=== PATIENT | female | born 1945 | race Caucasian/White ===

== ENCOUNTER → 2017-09-12 09:18 | Outpatient (CLI) | payer MEDICARE, SELFPAY | PROVIDERS: Family Provider Internal Medicine; PCP Internal Medicine | DX: R00.2 Palpitations (principal); R53.83 Other fatigue | CPT/HCPCS: 93225; 93226 ==

== ENCOUNTER → 2018-02-16 09:16 | Outpatient (CLI) | payer MEDICARE, SELFPAY ==
--- NOTE | 2018-02-16 | IMM_PTH ---
PATIENT: EDER LISA LOC: [facility] U#:[id number] AGE/SX: 79/F ROOM: RE02/16/[address]: Dr. Jairo Douglas MD : 1945 BED: DIS: SPEC #: [id number] RECD: 02/17/18 13:40 STATUS: STEFAN REQ #: [id number] YUDI: 02/16/18 00:[address]: Jairo Douglas DEPT: IMMUNOHISTOCHEMISTRY RECD BY: Stormy Gold ENTERED: 02/17/18 13:41 SP TYPE: IMMUNO OTHR DR: Dr. Becka Dewey MD Tissues: Left breast, NOS Procedures: CALPONIN-1 (add) CK5-6 (add) CK8 (add) E-CAD (add) HER2 BASSAM (add) KI-67 (add) P53 (add) NV (add) P40 (add) ER (initial) PHYSICIAN & [address] [address] SPECIMEN INFORMATION: Tissue Source: Left breast Clinical Info: Left breast microcalcifications 12 o'clock middle depth Specimen Number: [id number] #1 CPT code: 30713, 68438 x6, 79498 x3 METHODOLOGY: Deparaffinized sections of prefer/formalin-fixed tissue or PAP/DQ stained slides are incubated with monoclonal/polyclonal antibodies/oligonucleotide probes. Localization is made via biotin free immunoperoxidase method. Appropriate controls are performed and reacted as expected. Results on target cell population are indicated in the following table: RESULTS: ANTIBODY / CLONE RESULT Block 1 P53 (DO-7) positive, rare Ki-67 (30-9) negative CK8 (09fftpA16) positive CK5-6 (D5 & 1684) negative Calponin-1 (NI761A) positive P40 (BC28) positive E-Cad (ECH-6) positive MORPHOMETRIC ANALYSIS ER (clone 6F11) >95%, strong NV (clone 16/1E2) >95%, moderate Her-2Neu (clone CB11) 3+ The prognostic test for HER2 is performed on formalin-fixed paraffin embedded tissue. A 3+ (positive) staining pattern is defined as intense, homogeneous, complete, circumferential membranous staining in >10% of contiguous tumor cells. A similar weak (2+) staining pattern is interpreted as equivocal. MANUELA follow-up testing is recommended for all equivocal cases. Positivity/negativity for ER/NV is reported if > or < 1% of the tumor cells are immuno- reactive, respectively. The ASCO/CAP criteria is used for scoring. Reference: Journal of Clinical Oncology, 2013; 31:0393-9072 & 2010; 16:9216-2719. Duration of fixation: 9 Hrs; Sample Adequate: Yes. These assays have not been validated on decalcified tissues. Results should be interpreted with caution given the likelihood of false negativity on decalcified specimens. These tests were developed and their performance characteristics determined by [facility]. They may not have been cleared or approved by the U.S. Food and Drug Administration. The FDA has determined that such clearance or approval is not necessary. INTERPRETATION: Left breast, microcalcifications 12 o'clock middle depth, stereotactic core biopsy: Ductal carcinoma in situ, grade 3/3. Positive for estrogen receptors (favorable prognostic indicator). Positive for progesterone receptors (favorable prognostic indicator). Positive for overexpression of HQS1wok. AM:alessandra 02/18/18
--- NOTE | 2018-02-16 10:35 | BRBX_PTH ---
PATIENT: EDER LISA LOC: [facility] U#:[id number] AGE/SX: 79/F ROOM: RE02/16/[address]: Dr. Jairo Douglas MD : 1945 BED: DIS: SPEC #: [id number] RECD: 02/16/18 12:08 STATUS: STEFAN PARDEEP #: [id number] YUDI: 02/16/18 10:[address]: Jairo Douglas DEPT: SURGICAL PATHOLOGY RECD BY: Jairo Booker ENTERED: 02/16/18 12:59 SP TYPE: BREAST BX OTHR DR: Dr. 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 AM:alessandra 02/17/18 COMMENT ER/AR/Fqt1dqj studies are being performed on sections of tumor and the results from this study will be reported separately ([id number]). Case has been reviewed in consultation with Dr. Corado who concurs with the above diagnosis. IDC:SJ MICROSCOPIC DESCRIPTION Slides are reviewed. GROSS DESCRIPTION Received is one container labeled with the patient's name and not further designated. The specimen consists of multiple elongated fragments of king-yellow fibroadipose tissue that in aggregate measure 5 x 3 x 0.6 cm. The entire specimen is submitted in four cassettes. / VINNIE:alessandra 02/16/18 TC:0 CPT: 72217
--- NOTE | 2018-02-16 11:39 | PCM.OPRPT ---
Report of Operation Date of Procedure: 02/16/18 Pre-Operative Diagnosis: right breast microcalcifications Post-Operative Diagnosis: right breast microcalcifications -successful biopsy Surgery/Procedure Performed:: right stereotactic vaccuum assisted core biospy, specimen radiograph, marker placement brazing machine operator automatic: None Type of Anesthesia:: Local Specimen's removed: right breast Description of Procedure: The patient was brought to the stereotactic suite and informed of the plan course of events. The right breast was positioned in the CC approach on the [place] stereotactic table. Mammographic image demonstrated the area of abnormality to be located in the center of the radiograph. Stereotactic images were then obtained which demonstrated good positioning of the abnormality for biopsy with good stroke gaston parameters. The breast was cleaned with Betadine area did one percent lidocaine was used to anesthetize the skin and a small stab incision made. An 8-gauge mammotome needle was placed into the pre-fire position. Stereotactic images demonstrated good positioning around the planned biopsy site. Local anesthetic injected deeply in the breast. The needle was deployed. Post deployment images demonstrated good positioning of the planned biopsy site. Multiple vacuum-assisted samples were obtained and cbkrxg-gee-[id number] fashion. Specimen radiograph demonstrated micro-calcifications in the sample. A gel marker clip was deployed. Post biopsy images demonstrated good position of the clip relative the biopsy cavity. The breast was removed from compression. Steri-Strips and a dressing applied. Post procedure mammogram images were obtained.
== END ==
PROVIDERS: Family Provider Internal Medicine; PCP Internal Medicine; Visit Provider Surgery
DX: D05.12 Intraductal carcinoma in situ of left breast (principal)
CPT/HCPCS: 19081; 88305; 88341; 88342; J7050; A4648

== ENCOUNTER 2018-03-12 07:25 | Day surgery (SDC) | payer MEDICARE, SELFPAY ==
--- NOTE | 2018-03-12 | BREAST_PTH ---
PATIENT: EDER ILSA LOC: [facility] U#:[id number] AGE/SX: 72/F ROOM: RE03/12/[address]: Dr. Jairo Douglas MD : 1945 BED: DIS: 03/12/2018 SPEC #: [id number] RECD: 03/12/18 10:20 STATUS: STEFAN REStephen #: [id number] YUDI: 03/12/18 00:[address]: Jairo Douglas DEPT: SURGICAL PATHOLOGY RECD BY: Stormy Gold ENTERED: 03/12/18 10:48 SP TYPE: BREAST OTHR DR: Dr. Becka Dewey MD Tissues: Left breast, NOS Procedures: Surgery Specimen Level V HEADER OPERATION: Left breast lumpectomy PRE-OP DIAGNOSIS: Left breast ductal carcinoma in situ TISSUE SUBMITTED: Left breast lumpectomy - sent to radiology, then to lab at 10:11, wire - cranial, single tail - medial, double tail - deep MICROSCOPIC DIAGNOSIS Left breast, lumpectomy: Ductal carcinoma in situ. See cancer checklist below. AM:alessandra 03/18/18 COMMENT DUCTAL CARCINOMA IN SITU SUMMARY: Specimen - partial breast Procedure - excision with wire-guidance Lymph node sampling - no lymph nodes present Specimen integrity - single intact specimen Specimen size - 6 x 6 x 3.5 cm Specimen laterality - left Size (extent) of DCIS - 2 x 1 x 1 mm Histologic type - ductal carcinoma in situ Architectural patterns - papillary and cribriform types with focal central necrosis. Nuclear grade - Grade 3/3 Necrosis - focally present, central Margins - uninvolved by DCIS. Distance from closest (anterior) margin - 5 mm Lymph nodes - not present Other findings - biopsy cavity with associated reactive change. Fibrocystic change and focal adenosis. Microcalcifications - present in non-neoplastic tissue. Ancillary Studies from previous specimen ([id number] / [id number]): ER - >95%, strong CT - >95%, moderate Her2 gunnar ([facility]) - 3+ Her2 by FISH - not performed. Pathologic Staging: pTis(DCIS) Nx Mx The above summary is in compliance with [employer] [place] [employer] (CAP) Cancer Protocols Checklist and [place] [employer] Committee on Cancer (AJCC), Staging Manual, 8th Ed. Reference is made to the patient's previous left breast stereotactic core biopsy from 02/17/18 ([id number]) in which ductal carcinoma in situ, nuclear 3 was identified. Case has been reviewed in consultation with Dr. Quick who concurs with the above diagnosis. IDC:CE MICROSCOPIC DESCRIPTION Slides are reviewed. GROSS DESCRIPTION Received fresh for intraoperative consultation labeled with the patient's name is a specimen designated left breast lumpectomy. The specimen consists of a piece of fibroadipose tissue with needle localization measuring 6 x 6 x 3.5 cm. A piece of skin is noted superiorly measuring 3.5 x 1 cm. The specimen is oriented as follows: wire - cranial, single tail - medial, and double tail - deep/inferior. The specimen is inked as follows: anterior - yellow, posterior - black, superior - blue, inferior - green, medial - red and lateral - orange. Serial sections reveal a biopsy cavity measuring 1.5 x 1.5 x 1 cm. This biopsy cavity is 1 cm away from the closest posterior margin. The specimen gross is reviewed along with the surgeon in person. No skin lesion is identified. Sections of the rest of the specimen reveal king-yellow adipose cut surfaces mixed with king-white fibrous area. System Engineer sections are submitted in 12 cassettes as follows: 1 & 2 - perpendicular margins, 3-7 - biopsy cavity with surrounding tissue, 8-12 - guest services representative sections adjacent to and away from the tumor. / VINNIE:alessandra 03/13/18 TC:0 CPT: 52630, 98252
--- NOTE | 2018-03-12 | IMM_PTH ---
PATIENT: EDER LISA LOC: [facility] [place] U#:[id number] AGE/SX: 72/F ROOM: RE03/12/[address]: Dr. Jairo Douglas MD : 1945 BED: DIS: 03/12/2018 SPEC #: [id number] RECD: 03/17/18 13:05 STATUS: SOUAsif REQ #: [id number] YUDI: 03/12/18 00:[address]: Jairo Douglas DEPT: IMMUNOHISTOCHEMISTRY RECD BY: Stormy Gold ENTERED: 03/17/18 13:07 SP TYPE: IMMUNO OTHR DR: Dr. Becka Dewey MD Tissues: Left breast, NOS Procedures: Calponin-1(initial) P40 (add) PHYSICIAN & INSTITUTION [place] [id number] SPECIMEN INFORMATION: Tissue Source: Left breast lumpectomy Clinical Info: Left breast DCIS Specimen Number: [id number] CPT code: 41072, 68431 METHODOLOGY: Deparaffinized sections of prefer/formalin-fixed tissue or PAP/DQ stained slides are incubated with monoclonal/polyclonal antibodies/oligonucleotide probes. Localization is made via biotin free immunoperoxidase method. Appropriate controls are performed and reacted as expected. Results on target cell population are indicated in the following table: RESULTS: ANTIBODY / CLONE RESULT Block 10 P40 (BC28) positive Calponin-1 (CQ551B) positive These tests were developed and their performance characteristics determined by [facility]. They may not have been cleared or approved by the U.S. Food and Drug Administration. The FDA has determined that such clearance or approval is not necessary. INTERPRETATION: Left breast lumpectomy: Consistent with focus of adenosis. AM:alessandra 03/18/18
--- NOTE | 2018-03-12 07:20 | BI_ITS ---
SURGICAL BREAST SPECIMEN RADIOGRAPH CLINICAL: Document presence of tissue clip marker in biopsy specimen. FINDINGS: Specimen shows presence of tissue clip marker. Electronically Signed: Wilfrid Bartlett MD at 11:01 EST Tel [phone], Service support , BI/Breast Biopsy Specimen
[2018-03-12 07:49] VITALS: BP 174/74; PULSE 65; RESP 16; TEMP 37.1; O2SAT 97; BMI 26.6
[2018-03-12] MEDS: Bupivacaine 0.25% 30 ML Vial (10:30)
--- NOTE | 2018-03-12 10:36 | OP.PCM_ITS ---
Report of Operation Date of Procedure: 03/12/18 Pre-Operative Diagnosis: left breast DCIS Post-Operative Diagnosis: left breast DCIS - good radiographic and gross margins Surgery/Procedure Performed:: left needle localization lumpectomy starch treating assistant: Radha Nunez Type of Anesthesia:: Local MAC Anesthesiologist: Alberto Garcia - ASA3 Specimen's removed: left breast tissue Estimated Blood Loss (mL): 5 Fluids Replaced: 700 Description of Procedure: The patient was brought to the stereotactic suite. Her left breast was positioned in the cc approach in the [place] stereotactic table. Mammogram image demonstrated the clip to be nicely centered. Stereotactic images were obtained. Planned placement of the wire was marked and an additional 15 mm of depth added to the prescribed depth. The breast was then cleaned with Betadine. Local anesthetic was injected in the breast and a 15 Kopan's wire was inserted to the prescribed depth. Stereotactic images demonstrated good positioning of the wire. The wire was deployed as an needle was withdrawn. Stereotactic images demonstrated good positioning of the wire. The breast was marked compression the wire cut to length and taped. CC and true lateral views were then obtained. The patient was then brought to the operative suite. Sign was performed verifying patient, site, position, and DVT prophylaxis with SCDs. no antibiotics were given due to the patient's history of many drug allergies and anxiety related to possible drug allergies. The procedure was done under local anesthetic with conscious sedation. Following this, the patient?s left breast, was then prepped and draped in the usual fashion. Timeout was performed verifying patient, site, position. The wire entered the left breast at the 12 oclock position. 50-50 mixture of1% lidocaine and 0.25% Marcaine was injected into the skin and then injected deeply throughout the case. A total of 24 cc of local anesthetic mixture was injected. An elliptical incision was made and dissection carried down to subcutaneous breast tissue and then flared out such that a good margin would be obtained in all axes. When the specimen was removed. The wire came from the superior superficial site. A solitary suture was placed at the medial aspect A double tail suture was placed along the inferior to deep aspect of the specimen. The specimen was oriented on a radiographic plate and sent for specimen radiograph. While we?re awaiting specimen radiograph, the cavity was irrigated with sterile water and aspirated. There was noted to be good hemostasis. 4 medium clips were placed at the deep cavity margins and 4 small clips at the superficial cavity margins oriented the cavity for future radiation treatment. Subcutaneous breast tissue closed with interrupted 3-0 Vicryl suture. Skin was closed with a running 4-0 Biosyn subcuticular suture. Specimen radiograph demonstrated good position of the clip relative to the biopsy site. The specimen was then brought to the pathology department. I oriented the specimen with the pathologist. Gross margins were examined and felt to be at least 1 cm. Given this, Dermabond was applied to the skin the patient was awakened and brought to recovery in stable condition. - Admit VTE Documentation VTE Present on Admission: No VTE Mechan Device Prophylaxis: SCD's
--- NOTE | 2018-03-12 10:38 | DCINST_ITS ---
Discharge Diet: No Restrictions Discharge Activity: Return to Normal Activity May shower in (days): 3 Call your doctor if your incision/area has: Continuous Slow Oozing, Sudden Increased Bleeding, Increased Pain/ Swelling, Increased Redness, Foul Smelling Discharge, Swelling at the incision site Call your doctor if you observe: Fever of 101 or Higher Allergies/Adverse Reactions: Allergies aspirin Allergy (Mild, Verified 03/09/18 11:24) unknown calcium carbonate [From Tums] Allergy (Mild, Verified 03/09/18 11:24) unknown estradiol [From Vagifem] Allergy (Mild, Verified 03/09/18 11:24) unknown latanoprost [From Xalatan] Allergy (Mild, Verified 03/09/18 11:24) unknown miconazole [From Monistat 3] Allergy (Mild, Verified 03/09/18 11:24) burining, headache, nausea ranitidine [From Zantac] Allergy (Mild, Verified 03/09/18 11:24) unknown skin cleanser combination no.17 [From Monistat 3] Allergy (Mild, Verified 03/09/18 11:24) burining, headache, nausea tioconazole [From Monistat 1 (tioconazole)] Allergy (Mild, Verified 03/09/18 11:24) burning, headache, nausea amoxicillin Allergy (Verified 03/09/18 11:24) Anaphylaxis ibuprofen [From Advil] Allergy (Verified 03/09/18 11:24) Other indomethacin [From Indocin] Allergy (Verified 03/09/18 11:24) Anaphylaxis indomethacin sodium [From Indocin] Allergy (Verified 03/09/18 11:24) Anaphylaxis prednisolone Allergy (Verified 03/09/18 11:24) Swelling Sulfa (Sulfonamide Antibiotics) Allergy (Verified 03/09/18 11:24) Anaphylaxis nitrofurantoin macrocrystalline [From Macrodantin] Adverse Reaction (Verified 03/09/18 11:24) Other prednisone Adverse Reaction (Verified 03/09/18 11:24) Other progesterone Adverse Reaction (Verified 03/09/18 11:24) Other propoxyphene HCl [From Darvon] Adverse Reaction (Verified 03/09/18 11:24) Other BARIUM DRINK Adverse Reaction (Uncoded 03/09/18 11:24) Rash MONOSTAT Adverse Reaction (Uncoded 03/09/18 11:24) Other PSORIASIS LOTION Adverse Reaction (Uncoded 03/09/18 11:24) Rash Medications to take at Discharge L.acidoph/B.long/L.plant/B.lac [Probiotic Acidophilus Beads] 1 ea PO DAILY 04/26/14 Lutein 1 cap PO DAILY 04/26/14 Nattokinase 100 mg PO DAILY 04/26/14 Albuterol IH (ProAir) [Proair Hfa] 2 puff INHALATION Q4H PRN PRN 07/18/14 DiphenhydrAMINE [Benadryl] 25 mg PO BID PRN PRN 07/18/14 Epinephrine [Epi Pen] 0.3 mg IH X1 PRN 07/18/14 Cholecalciferol (Vitamin D3) [Vitamin D3] 5,000 unit PO DAILY 03/10/16 biotin 1 mg capsule 2,500 mcg PO QDAY 10/17/17 Magnesium Amino Acid Chelate [Magnesium] 100 mg PO DAILY 03/09/18 Primary Care Physician: Becka Dewey MD [Primary Care Provider] - Test Results: Test results from this visit will be discussed in further detail at your follow- up appointment, if applicable. Please Follow Up With: Jairo Douglas MD - [phone] When: Please call for an appointment to be seen in one week.
[2018-03-12 10:40] VITALS: BP 124/77; BP 174/77; PULSE 74; RESP 16; TEMP 36.1; O2SAT 96
[2018-03-12 10:45] VITALS: BP 152/75; BP 174/77; PULSE 71; RESP 16; O2SAT 98
[2018-03-12 10:50] VITALS: BP 151/73; BP 174/77; PULSE 84; RESP 16; O2SAT 99
[2018-03-12 10:58] VITALS: BP 157/76; BP 174/77; PULSE 74; RESP 16; TEMP 36.4; O2SAT 99
[2018-03-12 11:32] VITALS: BP 140/78; BP 174/77; PULSE 68; RESP 18; TEMP 36.8; O2SAT 99
== END 2018-03-12 11:33 | disposition home or self-care (01) ==
LOC: SDC 07:25 → AC 07:28
PROVIDERS: Family Provider Internal Medicine; PCP Internal Medicine; Referring Provider Surgery; Visit Provider Surgery
PROC: (CPT 19301; principal; 2018-03-12 09:00)
DX: D05.12 Intraductal carcinoma in situ of left breast (principal); L40.9 Psoriasis, unspecified; M19.90 Unspecified osteoarthritis, unspecified site; J45.909 Unspecified asthma, uncomplicated; K21.9 Gastro-esophageal reflux disease without esophagitis; Z78.0 Asymptomatic menopausal state; Z87.11 Personal history of peptic ulcer disease
CPT/HCPCS: 19301; 19281; 76098; 88305; 88307; 88341; 88342; J7120; J3490; Q9968

== ENCOUNTER 2018-05-29 04:04 | Emergency (ER) | payer MEDICARE, SELFPAY ==
[2018-05-29 04:05] VITALS: BP 171/71; PULSE 68; RESP 18; TEMP 36.6; O2SAT 98; BMI 26.7
--- NOTE | 2018-05-29 04:26 | EKG12_ITS ---
Test Reason : SOB Blood Pressure : / mmHG Vent. Rate : 061 BPM Atrial Rate : 061 BPM P-R Int : 154 ms QRS Dur : 144 ms QT Int : 462 ms P-R-T Axes : 024 047 013 degrees QTc Int : 465 ms Normal sinus rhythm Right bundle branch block Abnormal ECG Confirmed by JOLENE DE LA ROSA, BRETT ([id number]), news videotape editor LISANDRA CARVALHO ([id number]) on 06/01/2018 1:00:04 PM Referred By: ALEXANDREA Confirmed By:BRETT FERNÁNDEZ MD
--- NOTE | 2018-05-29 04:26 | RAD_ITS ---
STUDY: X-RAY CHEST REASON FOR EXAM: Female, 73 years old. Chest pressure. Jaw pain TECHNIQUE: 2 views COMPARISON: None. FINDINGS: The lungs are clear and expanded. There is no demonstrated pleural abnormality. Normal size heart. Normal mediastinum and louisa. Normal visualized pulmonary arteries. Normal visualized aortic arch and descending thoracic aorta. Degenerative changes of the thoracic spine Normal visualized ribs, clavicles, and shoulders. There is no demonstrated abnormality of the visualized soft tissue structures of the upper abdomen. RAD/Chest PA and Lateral IMPRESSION: No acute findings in the lungs. No cardiomegaly Electronically Signed: Alfonso Bowie MD at 5:30 EDT Tel , Service support ,
[2018-05-29 04:44] LABS: Absolute Lymphocyte Count 1.37 X10^3/ul (0.83-4.51); Absolute Neutrophil Count 2.8 X10^3/uL (2.0-7.7); Basophil# 0.04 X10^3/uL; Basophil% 0.8 % (0-1); Eosinophil# 0.15 X10^3/uL; Eosinophils% 3.1 % (0-5); Hemoglobin 13.5 g/dl (12.0-15.0); Lymphocyte # 1.37 X10^3/ul (4.0); Lymphocyte % 28.6 % (19-41); Mean Corp Hgb Conc 33.8 g/gl (32-36); Mean Corpuscular Hgb 29.2 pg (27.0-32.0); Mean Corpuscular Volume 86.6 fL (81-99); Mean Platelet Vol. 9.2 fl (6.2-12.0); Monocyte# 0.42 X10^3/uL; Monocyte% 8.8 % (0-10); Neutrophil # 2.81 X10^3/uL (2.7-7.7); Neutrophil % 58.7 % (47-70); POSITIVE COUNT NO; POSITIVE DIFFERENTIAL NO; POSITIVE MORPHOLOGY NO; Platelet Count 201 K/mm3 (150-450); RBC Distribution Width CV 13.9 % (11.6-14.6); RBC Distribution Width SD 43.8 fl (35.1-43.9); Red Blood Count 4.62 M/mm3 (4.2-5.4); White Blood Count 4.8 K/mm3 (4.4-11.0)
[2018-05-29 05:00] LABS: Anion Gap 6 (5-15); BUN 13 mg/dL (7-18); BUN/Creat Ratio 16.9 RATIO (10-20); Chloride 105 mmol/L (98-107); Creatinine, Serum 0.77 mg/dL (0.55-1.02); EST Glomerular Filtration Rate 78 mL/min (>60); Est Glom Filt Rate - Afr Amer 95 mL/min (>60); Glucose 105 mg/dL (74-106); Potassium 3.9 mmol/L (3.5-5.1); Sodium Level 140 mmol/L (136-145)
[2018-05-29 06:04] VITALS: BP 205/81; PULSE 65; RESP 16; O2SAT 99
--- NOTE | 2018-05-29 06:21 | CT_ITS ---
HISTORY: SHORTNESS OF BREATH. CURRENTLY ON RADIATION FOR BREAST CANCER. LEFT LUMPECTOMY TECHNIQUE: Helically acquired images were obtained of the chest following IV contrast as per pulmonary angiogram protocol with 3D reconstructions. A radiation dose optimization technique was used for this scan. IV Contrast dosage and agent: 75 cc Isovue-370 contrast COMPARISON: 2 view chest x-ray 05/29/2018 FINDINGS: The main, segmental, and visualized subsegmental pulmonary arteries show normal opacification and appearance. No PE. The ascending thoracic aorta is upper normal in caliber. No aortic dissection or pericardial effusion. No mediastinal or axillary lymph node enlargement. On axial images #70-71, the lateral segment of the right middle lobe shows a 6 x 3 mm noncalcified nodule. No acute infiltrate. No pleural effusion or significant pleural disease. Left breast postlumpectomy changes with surgical clips in place. No acute osseous abnormality or suspicious bony lesion. CT/CTA Chest W/WO Contrast IMPRESSION: 1. No PE, pneumonia, or acute chest disease identified. 2. Right middle lobe 6 mm pleural-based nodule which is too small to assess by PET/CT. Recommend follow-up CT chest in 6 months to assure stability. 3. Left breast postlumpectomy changes. No lymphadenopathy seen. Individualized dose optimization techniques were used for this CT. at 4315 Reported and signed by: Garret Sevilla MD Electronically Signed: Garret Sevilla, at 7:28 EDT Tel , Service support ,
[2018-05-29] MEDS: DiphenhydrAMINE 50 MG/ML Syringe 12.5 MG IV (06:28)
--- NOTE | 2018-05-29 06:46 | ED.VISSUMM ---
- ER Visit Summary Date of Service: 05/29/18 Chief Complaint: Shortness of breath History of Present Illness: The patient is a 73 F who presents with shortness of breath. This is been present for 3 days. It is intermittent. Currently she actually does not feel short of breath. She denies any chest pain. No fevers nausea vomiting. She is undergoing radiation treatment for left breast cancer. She also has a history of hemochromatosis. She has to undergo phlebotomy. Physical Examination: Afebrile blood pressure 171/71 vitals otherwise normal Moist mucous membranes Heart regular rate and rhythm Lungs are clear Abdomen soft Extremities nontender Alert Skin warm and dry Test Results: EKG shows sinus rhythm rate of 61 with a right branch block. CBC BMP unremarkable. Troponin negative. Chest x-ray shows cardiomegaly but no acute findings. CTA of the chest shows no evidence of pulmonary embolism pneumonia or acute chest disease. Emergency Department Course and Treatment: Patient's complaints of intermittent dyspnea with active cancer raises concern for possible pulmonary embolism. Patient's workup as above is unremarkable. She was actually asymptomatic while here. I do not see an indication for hospitalization at this point. She does not appear to have any acute life-threatening cause of her unexplained intermittent dyspnea. She was advised to follow-up with her physicians. She understands to return for new or worsening symptoms. She was discharged. Treatment Plan: [] Disposition: Discharge Impression: Dyspnea This note was generated with Web[employer] dictation software. It may contain incorrect words, spelling, and punctuation that were not noted in review of the chart prior to signing ED Disposition - Plan for ED Patient: Referrals: Becka Dewey MD [Primary Care Provider] -
--- NOTE | 2018-05-29 07:39 | ED.DEP ---
ED Disposition - Plan for ED Patient: Instructions: ED Dyspnea Shortness of Breath Referrals: Becka Dewey MD [Primary Care Provider] -
[2018-05-29 08:18] VITALS: BP 168/84; PULSE 87; RESP 16; O2SAT 98
== END 2018-05-29 08:19 | disposition home or self-care (01) ==
LOC: ED 04:40
PROVIDERS: Emergency Provider Emergency Medicine; Family Provider Internal Medicine; PCP Internal Medicine
DX: R06.00 Dyspnea, unspecified (principal); C50.912 Malignant neoplasm of unspecified site of left female breast; I45.10 Unspecified right bundle-branch block; I51.7 Cardiomegaly; Z79.899 Other long term (current) drug therapy; Z86.2 Personal history of diseases of the blood and blood-forming organs and certain disorders involving the immune mechanism
CPT/HCPCS: 71046; 71275; 80048; 84484; 85025; 93005; 96374; 99284; Q9967; A4216

== ENCOUNTER 2018-10-16 11:24 | Emergency (ER) | payer MEDICARE, SELFPAY ==
[2018-10-16 11:25] VITALS: BP 197/79; PULSE 75; RESP 18; TEMP 36.6; O2SAT 99; BMI 27.5
--- NOTE | 2018-10-16 11:44 | CT_ITS ---
STUDY: CT CERVICAL SPINE WITHOUT CONTRAST REASON FOR EXAM: Female, 73 years old. Fall, on blood thinners. RADIATION DOSAGE (If Supplied By Facility): CTDIvol = ( 20.17 ) mGy, DLP = ( 473.93 ) mGycm TECHNIQUE: Thin slice helical CT acquisition of the cervical spine without contrast. Coronal and sagittal 2-D multiplanar reformatted images were saved to the PACS archive. Individualized dose optimization techniques were used for this CT. COMPARISON: None FINDINGS: No acute cervical or supraclavicular soft tissue process. Apical lungs clear. Apical thoracic cage within the [id number] intact. Odontoid, lateral masses, ring of C1 intact. Facet joints aligned and intact with mild facet arthropathy at multiple levels. Posterior elements acutely intact. Cervical vertebral body height and alignment are normal with preserved lordosis. C4-C5 moderate disc narrowing, mild disc bulging, uncovertebral joint hypertrophy contributing to mild right foraminal narrowing. C5-C6 moderate disc narrowing, uncovertebral joint hypertrophy. Partial calcification of the posterior longitudinal ligament, features contributing to mild bilateral foraminal narrowing. C6-C7 moderate disc narrowing, mild uncovertebral joint hypertrophy and disc bulging with no significant stenosis. The remaining disc intervals are normal. CT/Spine Cervical without Contras IMPRESSION: No acute cervical spine fracture or traumatic subluxation. Electronically Signed: Jairo Love MD at 12:57 EDT Tel , Service support ,
--- NOTE | 2018-10-16 11:44 | CT_ITS ---
STUDY: CT BRAIN WITHOUT CONTRAST REASON FOR EXAM: Female, 73 years old. Fall, on blood thinners RADIATION DOSAGE (If Supplied By Facility): CTDIvol = ( 44.99 ) mGy, DLP = ( 812.98 ) mGycm TECHNIQUE: Transaxial CT imaging of the brain was performed without administration of intravenous contrast material. Sagittal and coronal 2-D MPR. Individualized dose optimization techniques were used for this CT. COMPARISON: MRI brain 03/10/2016, CT head 03/09/2016 FINDINGS: Small mucous retention cyst at the base of the left maxillary sinus. Paranasal sinuses otherwise clear. Mastoid air cells and middle ear cavities clear. Irregularity of the nasal bone, consistent with fracture of unknown chronicity. Criteria facial osseous structures otherwise intact. Small right supraorbital forehead contusion. No acute intracranial bleed. Mild features of age-related cerebral atrophy. CT/Brain/Head without Contrast IMPRESSION: Right supraorbital forehead soft tissue contusion. Irregularity of the nasal bone consistent with fracture of unknown chronicity. No acute cranial process. Electronically Signed: Jairo Love MD at 12:53 EDT Tel , Service support ,
--- NOTE | 2018-10-16 11:44 | CT_ITS ---
STUDY: CT FACIAL BONES WITHOUT CONTRAST REASON FOR EXAM: Female, 73 years old. Fall, on blood thinners. RADIATION DOSAGE (If Supplied By Facility): CTDIvol = ( 29.38 ) mGy, DLP = ( 569.49 ) mGycm TECHNIQUE: The patient was scanned in a multi detector CT scanner. Sagittal and coronal images were reconstructed. Individualized dose optimization techniques were used for this CT. COMPARISON: CT head, CT cervical spine same date. CT head 03/09/2016 FINDINGS: Cervical soft tissues exhibit no acute process. Pharyngeal and laryngeal soft tissues unremarkable. Small mucous retention cyst at the base of the left maxillary sinus. Small right supraorbital forehead contusion with apparent laceration. Clinically correlate. Irregularity of the nasal bone and left paracentral soft tissue prominence of the nose, most consistent with acute fracture. Orbital rims, orbital burton, zygomatic arches, maxilla and mandible intact. Temporomandibular joints normally articulated. CT/Sinus/Facial Bone IMPRESSION: Visible fracture. Right supraorbital forehead soft tissue contusion. Electronically Signed: Jairo Love MD at 12:56 EDT Tel , Service support ,
--- NOTE | 2018-10-16 11:44 | RAD_ITS ---
STUDY: X-RAY - LEFT KNEE REASON FOR EXAM: Female, 73 years old. Fall, abrasions of the left knee TECHNIQUE: For view(s) of the knee. COMPARISON: None. FINDINGS: Osteopenia. No visible knee joint effusion. Periarticular soft tissues unremarkable. Patellofemoral articulation minimal patellar marginal osteophytic lipping. Medial compartment minimal joint margin osteophytic lipping. Lateral compartment no significant degenerative features. RAD/Knee 4 or More Views IMPRESSION: No radiographic evidence of acute injury. Mild DJD. Electronically Signed: Jairo Love MD at 13:12 EDT Tel , Service support ,
--- NOTE | 2018-10-16 13:39 | ED.DCSUM_ITS ---
- ER Visit Summary Date of Service: 10/16/18 Chief Complaint: [Fall with head injury] History of Present Illness: The patient is a 73 F [the emergency department after sustaining a fall while trying to cross street. Patient states she tripped on the sidewalk and did not have time to get her hands up which caused her to strike her head on the ground. No loss of consciousness. Patient sustained a laceration over her right forehead and eyebrow. Patient planes of some mild soreness in her neck. She denies any chest or back pain. Denies abdominal pain. She denies paresthesias in extremities. She is not up-to-date on tetanus.] Physical Examination: [HEENT-PERRLA, EOMI. Cranial nerves II through XII grossly intact. TMs clear. Mucous membranes moist. No adenopathy. Patient has a 4 cm laceration over the right eyebrow. Patient has soft tissue swelling over the nasal bone with superficial abrasions noted. Patient has superficial abrasions of the upper lip. No septal hematoma noted. Cardiovascular-regular rate and rhythm without murmur or ectopy Lungs-clear to auscultation, chest wall stable without crepitus or subcu emphysema Abdomen-normoactive bowel sounds, soft, nontender, no rebound or rigidity, no peritoneal signs. Extremities-intact ?4, normal range of motion, normal pulses. Left knee-patient has some superficial abrasions noted. She has some tenderness palpation over the patella. She has normal range of motion flexion extension. She is neuro vascular intact distally.] Test Results: [Scan of the brain without contrast showed nasal bone fracture and some soft tissue defect over the right eyebrow otherwise nothing acute. CT scan of the C-spine showed no fractures. CT scan of the facial bones showed nasal bone fractures but no other fractures. X-rays of the left knee show no fractures.] Emergency Department Course and Treatment: [Patient laceration repair-wound sterilely draped and prepped. Wound cleansed with Shur-Clens and irrigated with copious saline. Using 1% lidocaine a total of 5 cc used to anesthetize the area. Using 6-0 nylon a total of 9 single interrupted sutures placed with good wound edge approximation. Patient tired procedure well. Clean dressing applied.] Treatment Plan: [Follow-up with primary care physician in 7 days for suture removal. Patient also will be referred to ENT for the nasal bone fracture.] Disposition: [Home stable condition] Impression: [Mechanical fall Closed head injury Nasal bone fracture Forehead laceration 4 cm-simple repair] This note was generated with [employer] dictation software. It may contain incorrect words, spelling, and punctuation that were not noted in review of the chart prior to signing ED Disposition - Plan for ED Patient: Referrals: Becka Dewey MD [Primary Care Provider] -
--- NOTE | 2018-10-16 13:42 | ED.DEP ---
ED Disposition - Plan for ED Patient: Instructions: FALL, Mechanical, LACERATION, Face (Suture or Tape), FRACTURE, Nose (with X-Ray), Neck Sprain/Strain Referrals: Becka Dewey MD [Primary Care Provider] - 7 Days for suture removal
[2018-10-16 14:02] VITALS: RESP 18
[2018-10-16] MEDS: Diphth,Pertuss(Acell),Tet Vac 0.5 ML Vial IM (14:11)
[2018-10-16 14:31] VITALS: BP 180/92; PULSE 72; RESP 16; O2SAT 98
== END 2018-10-16 14:32 | disposition home or self-care (01) ==
LOC: ED 11:50
PROVIDERS: Emergency Provider Emergency Medicine; Family Provider Internal Medicine; PCP Internal Medicine
DX: S02.2XXA Fracture of nasal bones, initial encounter for closed fracture (principal); S16.1XXA Strain of muscle, fascia and tendon at neck level, initial encounter; S01.81XA Laceration without foreign body of other part of head, initial encounter; S01.111A Laceration without foreign body of right eyelid and periocular area, initial encounter; S00.511A Abrasion of lip, initial encounter; S80.212A Abrasion, left knee, initial encounter; W01.10XA Fall on same level from slipping, tripping and stumbling with subsequent striking against unspecified object, initial encounter; Y93.9 Activity, unspecified; Y92.480 Sidewalk as the place of occurrence of the external cause; Y99.9 Unspecified external cause status; Z79.899 Other long term (current) drug therapy; Z23 Encounter for immunization
CPT/HCPCS: 12013; 70450; 70486; 72125; 73564; 90471; 90715; 99284

== ENCOUNTER → 2019-12-02 07:59 | Outpatient (CLI) | payer MEDICARE, SELFPAY ==
[2019-11-25 13:05] VITALS: BMI 27.5
--- NOTE | 2019-12-02 08:00 | US_ITS ---
STUDY: ABDOMINAL ULTRASOUND - RIGHT UPPER QUADRANT REASON FOR VISIT: Female, 74 years old bloating and discomfort -- d/p nik 2018 -- concern for retained stone TECHNIQUE: Ultrasound evaluation of the right upper quadrant was performed with real-time and static max-scale imaging. TECHNICAL QUALITY: Adequate. COMPARISON: None. FINDINGS: Liver: The liver measures 14.4 cm. There is normal echogenicity of the liver. The bile ducts are within normal limits. There is hepatic color flow. The direction of portal flow is hepatopetal. There is no demonstrated mass lesion. Gallbladder: The patient is status post cholecystectomy. Common Bile Duct (C.B.D.): The common bile duct measures 3.2 mm. Pancreas: Normal size of the head, body and tail of the pancreas. There is increased echogenicity of the pancreas. There is no demonstrated pancreatic mass or cyst. Right Kidney: Normal size of the right kidney. The right kidney measures 10 cm x 5 cm x 5 cm. Normal renal cortex. The right cortex measures 1.8 cm. There is no demonstrated renal mass or cyst. There is no right hydronephrosis. US/Liver IMPRESSION: Status post cholecystectomy. No acute abnormality is seen. Electronically Signed: Wilfrid Bartlett, at 10:19 EDT , Service support ,
== END ==
PROVIDERS: PCP Internal Medicine; Referring Provider Internal Medicine; Visit Provider Internal Medicine
DX: R14.0 Abdominal distension (gaseous) (principal)
CPT/HCPCS: 76705

== ENCOUNTER → 2019-12-15 06:26 | Outpatient (CLI) | payer MEDICARE, SELFPAY ==
[2019-11-25 13:05] VITALS: BMI 27.5
--- NOTE | 2019-12-15 06:27 | MRI_ITS ---
STUDY: MR MRCP WITHOUT CONTRAST REASON FOR EXAM: Female, 74 years old. retained gallstone,rt sided abd pain, hx cholecystectomy 2018 TECHNIQUE: Standard MRCP technique was utilized. COMPARISON: None. FINDINGS: Gall Bladder: Gall bladder is surgically absent. Cystic duct: Normal with no demonstrated fixed filling defect. Intrahepatic ducts: Normal visualized intrahepatic ducts with no demonstrated fixed filling defect, dilation or stricture. Common hepatic duct: Normal with no demonstrated fixed filling defect, dilation or stricture. Common bile duct: Normal with no demonstrated fixed filling defect, dilation or stricture. Pancreatic duct: Normal with no demonstrated fixed filling defect, dilation or stricture. MRI/MRCP Abdomen without Contrast IMPRESSION: Normal MRCP in a patient who is status post cholecystectomy. Electronically Signed: Jairo Barakat MD at 11:26 EDT Tel , Service support ,
== END ==
PROVIDERS: PCP Internal Medicine; Referring Provider Internal Medicine; Visit Provider Internal Medicine
DX: K91.86 Retained cholelithiasis following cholecystectomy (principal)
CPT/HCPCS: 74181

== ENCOUNTER → 2020-04-27 11:43 | Outpatient (CLI) | payer MEDICARE, SELFPAY ==
[2020-04-27 10:10] VITALS: BMI 25.4
[2020-04-27 16:01] LABS: Cholesterol 197 mg/dL (200); High Density Lipoprotein 55 mg/dL; Triglycerides 146 mg/dL; Very Low Density Lipoprotein 29 mg/dL (5-40)
== END ==
PROVIDERS: PCP Internal Medicine; Referring Provider Internal Medicine; Visit Provider Internal Medicine
DX: R07.9 Chest pain, unspecified (principal)
CPT/HCPCS: 36415; 80061

== ENCOUNTER → 2020-05-05 09:55 | Outpatient (CLI) | payer MEDICARE, SELFPAY ==
[2020-04-27 10:10] VITALS: BMI 25.4
--- NOTE | 2020-05-05 11:31 | STRESSREP ---
Stress Test Report Date: 05-05-2020 Procedure: Exercise tolerance test Indications: Chest pain Consent: Per the patient Procedure: The patient exercised on a Tc protocol for 6 minutes completing stage II achieving a peak heart rate of 120 bpm (83% predicted maximal heart rate) with a peak blood pressure 156/80 mmHg and a peak MET capacity of approximately 7 MET's. The baseline ECG demonstrated normal sinus rhythm; right bundle branch block pattern. The peak exercise ECG demonstrated sinus rhythm with a right bundle branch block pattern with approximately 1 to 2 mm of horizontal/downsloping ST segment depression in leads II, III, and aVF with subsequent resolution towards baseline in recovery. There was a rare PAC during exercise and recovery. The functional capacity was considered good. The patient had no complaint of chest discomfort during exercise or recovery. The examination was discontinued secondary to fatigue. Impression: 1. Technically inadequate (percent predicted maximal heart rate less than 85%) exercise tolerance test 2. Peak exercise ECG with continued sinus rhythm with a right bundle branch block pattern with approximately 1 to 2 mm horizontal/downsloping ST segment depression in leads II, III, and aVF with subsequent resolution towards baseline in recovery 3. There was a rare PAC during exercise and recovery This note was generated with [employer] software. It may contain incorrect words, spelling, and punctuation that were not noted in checking the note before signing.
== END ==
PROVIDERS: PCP Internal Medicine; Referring Provider Internal Medicine; Visit Provider Internal Medicine
DX: R07.9 Chest pain, unspecified (principal)
CPT/HCPCS: 93017

== ENCOUNTER → 2020-12-05 09:26 | Outpatient (CLI) | payer MEDICARE, SELFPAY ==
[2020-12-05 12:51] LABS: Vitamin B12 401 pg/mL (211-911); Vitamin D,25 Hydroxy 93.6 ng/mL
[2020-12-05 13:33] LABS: Hemoglobin A1c 5.3 % (3.8-5.6)
== END ==
PROVIDERS: PCP Internal Medicine; Referring Provider Internal Medicine; Visit Provider Internal Medicine
DX: E83.119 Hemochromatosis, unspecified (principal); G62.9 Polyneuropathy, unspecified; E55.9 Vitamin D deficiency, unspecified; M85.80 Other specified disorders of bone density and structure, unspecified site; Z78.9 Other specified health status
CPT/HCPCS: 36415; 82306; 82607; 83036

== ENCOUNTER 2021-03-23 15:27 | Outpatient (CLI) | payer MEDICARE, SELFPAY | END 2021-03-23 23:59 | disposition short-term general hospital (02) | LOC: LABSPEC 15:28 | PROVIDERS: PCP Internal Medicine; Referring Provider Internal Medicine; Visit Provider Internal Medicine | DX: U07.1 COVID-19 (principal) | CPT/HCPCS: 87635; U0003; U0005 ==

== ENCOUNTER 2021-05-28 10:33 | Outpatient (CLI) | payer MEDICARE, SELFPAY ==
[2021-05-28 12:09] LABS: Absolute Lymphocyte Count 1.18 X10^3/uL (0.83-4.51); Absolute Neutrophil Count 2.7 X10^3/uL (2.0-7.7); Basophil# 0.06 X10^3/uL; Basophil% 1.4 % (0-1); Eosinophils% 2.3 % (0-5); Hematocrit 41.6 % (37-47); Hemoglobin 13.8 g/dL (12.0-15.0); Lymphocyte # 1.18 X10^3/ul (0.83-4.51); Lymphocyte % 26.8 % (19-41); Mean Corp Hgb Conc 33.2 g/dL (32-36); Mean Corpuscular Hgb 29.6 pg (27.0-32.0); Mean Corpuscular Volume 89.3 fL (81-99); Mean Platelet Vol. 10.4 fl (6.2-12.0); Monocyte# 0.32 X10^3/uL; Monocyte% 7.3 % (0-10); NRBC Flagged by Analyzer 0 % (0-5); Neutrophil # 2.74 X10^3/uL (2.7-7.7); Platelet Count 230 K/mm3 (150-450); RBC Distribution Width CV 13.4 % (11.6-14.6); RBC Distribution Width SD 43.7 fl (35.1-43.9); Red Blood Count 4.66 M/mm3 (4.2-5.4); White Blood Count 4.4 K/mm3 (4.4-11.0)
[2021-05-28 12:13] LABS: Hemoglobin A1c 5.3 % (3.8-5.6)
[2021-05-28 12:30] LABS: ALB/GLOB Ratio 1.3 RATIO (0.9-2.4); AST(SGOT) 15 U/L (15-37); Alanine Aminotransfer ALT/SGPT 16 U/L (13-56); Albumin, Serum 3.9 g/dL (3.2-5.0); Alkaline Phosphatase 70 U/L (45-117); Anion Gap 4 (5-15); BUN 12 mg/dL (7-18); BUN/Creat Ratio 17.2 RATIO (10-20); Calcium,Total 9.2 mg/dL (8.5-10.1); Chloride 107 mmol/L (98-107); Cholesterol 159 mg/dL (200); EST Glomerular Filtration Rate 87 mL/min (>60); Est Glom Filt Rate - Afr Amer 105 mL/min (>60); Globulin 2.9 g/dL (2.2-4.2); Glucose 100 mg/dL (74-106); High Density Lipoprotein 59 mg/dL; Potassium 4.2 mmol/L (3.5-5.1); Protein, Total 6.8 g/dL (6.4-8.2); Sodium Level 140 mmol/L (136-145); Thyroid Stim Hormone (TSH) 0.77 uIU/mL (0.358-3.74); Triglycerides 69 mg/dL; Very Low Density Lipoprotein 14 mg/dL (5-40)
[2021-05-28 12:42] LABS: Vitamin B12 365 pg/mL (211-911); Vitamin D,25 Hydroxy 96.7 ng/mL
== END 2021-05-28 23:59 | disposition home or self-care (01) ==
LOC: BIMLAB 10:34
PROVIDERS: PCP Internal Medicine; Referring Provider Internal Medicine; Visit Provider Internal Medicine
DX: H53.9 Unspecified visual disturbance (principal); E53.8 Deficiency of other specified B group vitamins; E83.119 Hemochromatosis, unspecified; L40.9 Psoriasis, unspecified; E04.1 Nontoxic single thyroid nodule; M85.80 Other specified disorders of bone density and structure, unspecified site
CPT/HCPCS: 36415; 80053; 80061; 82306; 82607; 83036; 84443; 85025

== ENCOUNTER → 2021-08-02 | Outpatient (CLI) | payer MEDICARE, SELFPAY | END | disposition home or self-care (01) | PROVIDERS: PCP Internal Medicine; Referring Provider Internal Medicine; Visit Provider Internal Medicine | DX: J30.9 Allergic rhinitis, unspecified (principal); Z77.120 Contact with and (suspected) exposure to mold (toxic) | CPT/HCPCS: 36415 ==

== ENCOUNTER → 2021-08-16 | Outpatient (CLI) | payer MEDICARE, SELFPAY ==
--- NOTE | 2021-08-16 08:21 | BD_ITS ---
STUDY: DUAL ENERGY X-RAY ABSORPTIOMETRY / DXA REASON FOR EXAM: Female, 76 years old. osteoporosis TECHNIQUE: Bone Mineral Density (BMD) measurements of lumbar spine and bilateral hips were obtained. COMPARISON: Comparison is made with prior study 07/22/2013. FINDINGS: Lumbar Spine (L1-L4): g/cm2 (0.875) / T-score (-1.3) / Z-score (1.2) Findings are suggestive of osteopenia with a low fracture risk. Left Femur Total: g/cm2 (0.740) / T-score (-1.7) / Z-score (0.3) Left Femoral Neck: g/cm2 (0.707) / T-score (-1.3) / Z-score (0.9) Right Femur Total: g/cm2 (0.772) / T-score (-1.4) / Z-score (0.5) Right Femoral Neck: g/cm2 (0.678) / T-score (-1.5) / Z-score (0.6) The T-Scores on the most recent prior examination were: Lumbar Spine (L1-L4): There has been worsening of bone density since the previous examination. Left Femur Total: which represents a worsening of 10.3%. Right Femur Total: which represents a worsening of 3.5%. BD/Dexa Bone Density Study IMPRESSION: The patient is considered osteopenic as outlined below according to World Scooter Organization (WHO) criteria with a moderate fracture risk. There has been worsening of bone density since the previous examination. Reference Information: The T-score is the number of standard deviations above or below the standard which is normal for young adults at their peak bone mineral density. The World Health Organization (WHO) interprets the T-scores as follows: Above -1 Normal bone density Between -1 and -2.5 Osteopenia Equal to / or below -2.5 Osteoporosis As a practical clinical guideline, osteopenia may be graded as follows: Mild -1 through -1.5 Moderate -1.6 through -2.0 Severe -2.1 through -2.4 The Z-score is the number of standard deviations above or below age-matched controls. A Z-score of less than -1.5 would be considered abnormal. References: 1. NIH Osteoporosis and Related Bone Diseases www osteo.org 2. International Society for Clinical Densitometry www iscd.org 3. National Osteoporosis Foundation www nof.org Electronically Signed: Wilfrid Bartlett MD at 12:52 EDT ,
== END | disposition home or self-care (01) ==
LOC: OPBD 08:17
PROVIDERS: PCP Internal Medicine; Referring Provider Internal Medicine; Visit Provider Internal Medicine
DX: M81.0 Age-related osteoporosis without current pathological fracture (principal)
CPT/HCPCS: 77080

== ENCOUNTER 2021-10-31 12:42 | Emergency (ER) | payer MEDICARE, SELFPAY ==
[2021-10-31 12:44] VITALS: BP 201/70; PULSE 66; RESP 14; TEMP 36.7; O2SAT 98; BMI 26.2
--- NOTE | 2021-10-31 13:52 | CT_ITS ---
STUDY: CT BRAIN WITHOUT CONTRAST REASON FOR EXAM: Female, 76 years old. Facial paresthesias RADIATION DOSAGE (If Supplied By Facility): CTDIvol = ( 47.06 ) mGy, DLP = ( 855.06 ) mGycm TECHNIQUE: Transaxial CT imaging of the brain was performed without administration of intravenous contrast material. Individualized dose optimization techniques were used for this CT. COMPARISON: Comparison is made with prior study 10/16/2018. FINDINGS: Normal soft tissue structures. There is hyperostosis frontalis internus. There is mild cerebral atrophy with widening of the extra-axial spaces and ventricular dilatation. Normal white matter tracts of the cerebral hemispheres. Normal basal ganglia and thalami. Normal brainstem. Normal cerebellum. There is no intracranial hemorrhage. There are no findings of an acute ischemic infarction. Normal visualized paranasal sinuses. CT/Brain/Head without Contrast IMPRESSION: Chronic involutional changes of the brain. Electronically Signed: Wilfrid Bartlett MD at 14:21 EDT ,
--- NOTE | 2021-10-31 15:12 | EDS_ITS ---
HPI History of Present Illness Chief Complaint: Numb/Ting Informant: patient and spouse/S.O. Narrative Narrative: 76-year-old female notes that she has had some numbness/tingling left upper philtrum. She also notes some swelling and some erythema over the left ma xillary face. She saw dermatology today for an unrelated complaint and was told to follow-up with primary care. She called primary care and was sent to the emergency department. She notes that recently she was brushing her teeth and had a cut on her gumline recently. She denies any visual changes. No vesicular rashes. PFSH PFSH Medical History Acid reflux Acute urticaria Allergic rhinitis Arthritis Asthma Cataract Ductal carcinoma in situ (DCIS) of breast Gallstones GERD (gastroesophageal reflux disease) Glaucoma Hemochromatosis History of pneumonia as a child Hives Macular degeneration Neuropathy Osteopenia Suspected COVID-19 virus infection Temporal arteritis Thyroid nodule Upper respiratory infection Vegan diet Home Medications L.acidophilus-L.plantarum-B.animalis-B.longum 2 billion cell capsule 1 ea PO DAILY 04/26/14 [History Last Taken 03/09/16] albuterol sulfate 90 mcg/actuation aerosol inhaler 2 puff inhalation Q4H PRN PRN Wheezing 07/18/14 [History Last Taken 03/12/18 07:57] diphenhydramine HCl 25 mg capsule 25 mg PO BID PRN PRN Allergies 07/18/14 [His tory Last Taken Unknown] cholecalciferol (vitamin D3) 125 mcg (5,000 unit) capsule 5,000 unit PO DAILY 03/10/16 [History Last Taken Unknown] biotin 1 mg capsule 2,500 mcg PO QDAY 10/17/17 [History Last Taken Unknown] magnesium amino acid chelate 100 mg tablet 200 mg PO DAILY 03/09/18 [History Last Taken Unknown] phlebotomies for hemachromatosis IM 11/11/19 [History Last Taken Unknown] Nattokinase 2,000 mg PO DAILY 12/05/20 [History Last Taken Unknown] rye grass extract 500 mg-quercetin 250 mg tablet tab PO 08/02/21 [History Last Taken Unknown] clindamycin HCl 300 mg capsule (Cleocin HCl) 300 mg PO Q6H #28 CAPSULES 10/31/21 [Rx Last Taken Unknown] Allergy/AdvReac Type Severity Reaction Status Date / Time aspirin Allergy Mild unknown Verified 10/31/21 12:44 estradiol [From Vagifem] Allergy Mild unknown Verified 10/31/21 12:44 latanoprost [From Xalatan] Allergy Mild unknown Verified 10/31/21 12:44 miconazole [From Monistat 3] Allergy Mild burining, Verified 10/31/21 12:44 headache, nausea ranitidine [From Zantac] Allergy Mild unknown Verified 10/31/21 12:44 skin cleanser combination Allergy Mild burining, Verified 10/31/21 12:44 no.17 headache, [From Monistat 3] nausea tioconazole Allergy Mild burning, Verified 10/31/21 12:44 [From Monistat 1 headache, (tioconazole)] nausea amoxicillin Allergy Anaphylaxis Verified 10/31/21 12:44 ibuprofen [From Advil] Allergy Other Verified 10/31/21 12:44 indomethacin [From Indocin] Allergy Anaphylaxis Verified 10/31/21 12:44 indomethacin sodium Allergy Anaphylaxis Verified 10/31/21 12:44 [From Indocin] prednisolone Allergy Swelling Verified 10/31/21 12:44 Sulfa (Sulfonamide Allergy Anaphylaxis Verified 10/31/21 12:44 Antibiotics) barium sulfate AdvReac Rash Verified 10/31/21 12:44 nitrofurantoin AdvReac Other Verified 10/31/21 12:44 macrocrystalline [From Macrodantin] prednisone AdvReac Other Verified 10/31/21 12:44 progesterone AdvReac Other Verified 10/31/21 12:44 propoxyphene HCl AdvReac Other Verified 10/31/21 12:44 [From Darvon] PSORIASIS LOTION AdvReac Rash Uncoded 10/31/21 12:44 Family History Sister Breast cancer Mother Diabetes Myocardial infarction, Onset Age: 69 Arthritis Liver disease Osteoporosis Father Myocardial infarction, Onset Age: 75 Brother Myocardial infarction, Onset Age: 44 Parkinsons Other Cancer Surgical History H/O laparoscopy History of cataract surgery History of cholecystectomy History of lumpectomy of left breast Social History Smoking Status: Never smoker alcohol intake: never substance use type: does not use what type of physical activity do you participate in: walking frequency: 3-4 times per week ROS ROS ED Constitutional Constitutional ED: Denies chills, fever(s) or weight loss Eyes Eyes: Denies change in vision or diplopia ENT ENT ED: Reports other Details: See history of present illness ; Denies ear pain, rhinorrhea or sore throat Cardiovascular Cardiovascular: Denies chest pain, orthopnea, palpitations or racing heartbeat Respiratory/Chest Respiratory/Chest: Denies cough, dyspnea or orthopnea Gastrointestinal Gastrointestinal: Denies abdominal pain, diarrhea, nausea or vomiting Genitourinary Genitourinary ED: Denies dysuria, hematuria or urinary frequency Musculoskeletal Musculoskeletal: Reports other Details: See history of present illness ; Denies arthralgias, back pain, myalgias or neck pain Integumentary Reports Abrasions; Denies abscess or rash Neurologic Neurologic: Denies headache(s) or weakness Psychiatric Psychiatric: Denies anxiety, depression, suicidal ideation or suicidal thoughts Endocrine Endocrinology: Denies polydipsia, polyphagia or polyuria Allergic/Immunologic Allergic/Immunologic ED: Denies mouth swelling, tongue swelling or urticaria EXAM Physical Exam Const Vital Signs: 10/31/21 12:44 Temperature 98.1 F Temperature Source Temporal Pulse Rate 66 Respiratory Rate 14 Blood Pressure 201/70 H Blood Pressure Mean 113 Pulse Ox 98 Oxygen Delivery Method Room Air Positive well nourished and well developed General Appearance ED: well developed HEENT Reports normocephalic and moist mucous membranes HEENT Narrative: There is some mild swelling over the left maxillary facial region. There is associated erythema in this region. Examining her gumline she is tender over the roots of the left upper teeth. I do not appreciate any vesicular lesions/rash in the ear canal or on the face. Eyes PERRL and EOMs intact bilaterally Neck no lymphadenopathy, supple and no JVD Neck Narrative: No tenderness to palpation Resp normal respiratory effort and clear to auscultation bilaterally Cardio regular rate, regular rhythm and no murmurs GI normal to inspection, nondistended, normoactive bowel sounds and non-tender Palpation: soft Back/Spine no CVA tenderness and normal ROM Extremity normal to inspection General Extremety ED: Negative for edema General Extremity: Negative for edema Neuro oriented x3 and CN's II-XII intact bilaterally Sensorium / Orientation: alert Motor Exam: strength 5/5 throughout Psych mental status grossly normal Mood & Affect: Negative for depressed or tearful Skin no wounds MDM MDM MDM Narrative Medical decision making narrative: CT the brain is negative. There is no evidence of a maxillary sinusitis. Cl inically I think this is most likely going to be dental infection but early erysipelas cannot rule out. I think is reasonable to cover her with clindamycin and we observe her at home and see if any new symptoms develop. Patient is very comfortable with this plan. Should she worsen she should return or follow-up with primary care. Radiography Diagnostic Testing: Clinical Impression(s) from Imaging Studies Brain CT 10/31/21 13:52 IMPRESSION: Chronic involutional changes of the brain. Electronically Signed: Wilfrid Bartlett MD at 14:21 EDT , Discharge Plan Triage Chief Complaint: Numb/Ting ED Provider: Pako Fischer Dx/Rx/DC Orders Clinical Impression: Cellulitis of face Prescriptions: New clindamycin HCl [Cleocin HCl] 300 mg capsule 300 mg PO Q6H Qty: 28 0RF No Action biotin 1 mg capsule 2,500 mcg PO QDAY phlebotomies for hemachromatosis IM Label Comments: once every 3 months rye grass extract-quercetin 500-250 mg tablet PO L.acidoph,plant-B.animal,long 1 EACH capsule 1 ea PO DAILY Label Comments: enzymes Nattokinase tablet 2,000 mg PO DAILY Label Comments: blood thinner. Rx Instructions: 1999 FU diphenhydramine HCl 25 MG capsule 25 mg PO BID PRN PRN (Reason: Allergies) Label Comments: allegry albuterol sulfate 1 PUFF inhaler 2 puff INHALATION Q4H PRN PRN (Reason: Wheezing) Label Comments: breathing cholecalciferol (vitamin D3) 5,000 UNIT capsule 5,000 unit PO DAILY Label Comments: supplement magnesium amino acid chelate 100 MG tablet 200 mg PO DAILY Primary Care Provider: Kerry Medina Referrals: Kerry Medina MD [Primary Care Provider] - As Needed Disposition Disposition: Home, Self Care
[2021-10-31 15:36] VITALS: BP 149/51; PULSE 52; RESP 16
== END 2021-10-31 15:47 | disposition home or self-care (01) ==
PROVIDERS: Emergency Provider Emergency Medicine; PCP Internal Medicine; Visit Provider Emergency Medicine
DX: L03.211 Cellulitis of face (principal); R20.0 Anesthesia of skin; J45.909 Unspecified asthma, uncomplicated; H40.9 Unspecified glaucoma; M19.90 Unspecified osteoarthritis, unspecified site; K21.9 Gastro-esophageal reflux disease without esophagitis; Z79.899 Other long term (current) drug therapy
CPT/HCPCS: 70450; 99281

== ENCOUNTER → 2021-12-20 | Outpatient (CLI) | payer MEDICARE, SELFPAY | END | disposition home or self-care (01) | PROVIDERS: PCP Internal Medicine | DX: Z77.120 Contact with and (suspected) exposure to mold (toxic) (principal) | CPT/HCPCS: 36415 ==

== ENCOUNTER → 2022-11-01 | Outpatient (CLI) | payer MEDICARE, SELFPAY ==
[2022-11-04 16:09] LABS: ANTINUCLEAR ANTIBODIES DIRECT Negative (Negative)
== END | disposition home or self-care (01) ==
PROVIDERS: PCP Internal Medicine
DX: M35.3 Polymyalgia rheumatica (principal); K12.0 Recurrent oral aphthae; R68.2 Dry mouth, unspecified
CPT/HCPCS: 36415; 86038

== ENCOUNTER → 2022-12-09 | Outpatient (CLI) | payer MEDICARE, SELFPAY ==
[2022-12-09 10:28] LABS: Vitamin B12 420 pg/mL (211-911); Vitamin D,25 Hydroxy 105.5 ng/mL
[2022-12-09 10:45] LABS: ALB/GLOB Ratio 1.3 RATIO (0.9-2.4); AST(SGOT) 14 U/L (15-37); Alanine Aminotransfer ALT/SGPT 18 U/L (13-56); Albumin, Serum 3.9 g/dL (3.2-5.0); Alkaline Phosphatase 78 U/L (45-117); Anion Gap 6 (5-15); BUN 12 mg/dL (7-18); BUN/Creat Ratio 17.9 RATIO (10-20); CRP < 2.90 mg/L (0.0-3.0); Calcium,Total 9.3 mg/dL (8.5-10.1); Chloride 105 mmol/L (98-107); Cholesterol 171 mg/dL (200); Creatinine, Serum 0.67 mg/dL (0.55-1.02); EST Glomerular Filtration Rate 90 mL/min (>60); Est Glom Filt Rate - Afr Amer 109 mL/min (>60); Globulin 3.1 g/dL (2.2-4.2); Glucose 99 mg/dL (74-106); High Density Lipoprotein 68 mg/dL; Magnesium 2.4 mg/dL (1.6-2.6); Potassium 3.8 mmol/L (3.5-5.1); Sodium Level 140 mmol/L (136-145); Triglycerides 95 mg/dL; Very Low Density Lipoprotein 19 mg/dL (5-40)
== END | disposition home or self-care (01) ==
LOC: LAB 09:14
PROVIDERS: PCP Internal Medicine; Referring Provider Internal Medicine; Visit Provider Internal Medicine
DX: E55.9 Vitamin D deficiency, unspecified (principal); K21.9 Gastro-esophageal reflux disease without esophagitis; Z78.9 Other specified health status; L40.9 Psoriasis, unspecified; Z13.220 Encounter for screening for lipoid disorders; E04.1 Nontoxic single thyroid nodule; E53.8 Deficiency of other specified B group vitamins
CPT/HCPCS: 36415; 80053; 80061; 82306; 82607; 83735; 84443; 86140

== ENCOUNTER → 2023-01-27 | Outpatient (CLI) | payer MEDICARE, SELFPAY ==
[2023-01-27 10:38] LABS: Bacteria 0 SEEN /hpf (None Seen); Mucous, Urine 0 SEEN /hpf (<or=2+); Red Blood Cells-Urine 0 SEEN /hpf (0-5); White Blood Cells 0 SEEN /hpf (0-5)
[2023-01-27 10:46] LABS: Color, Urine Yellow (Yellow); Glucose, Dipstick Normal (Normal); Ketone-Dipstick Negative (Negative); Leukocyte Esterase-Dipstick 100 /ul (Negative); Nitrite-Dipstick Negative (Negative); Occult Blood-Urine Negative /ul (Negative); Protein-Dipstick Negative (Negative); Urine Bilirubin Dipstick Negative (Negative); Urine Clarity Clear (Clear); Urine Urobilinogen Normal (Normal)
[2023-01-27 10:55] LABS: Squamous Epithelial Cells - UA 0-5 SEEN /hpf (5-10)
== END | disposition home or self-care (01) ==
LOC: LABSPEC 10:14
PROVIDERS: PCP Internal Medicine; Referring Provider Physician Assistant; Visit Provider Physician Assistant
DX: R30.0 Dysuria (principal)
CPT/HCPCS: 81001; 87086; 87088

== ENCOUNTER → 2023-07-01 | Outpatient (CLI) | payer MEDICARE, SELFPAY ==
--- NOTE | 2023-07-01 09:06 | ECHOCS_ITS ---
Reason For Study: MURMUR Procedure This was a 2D Doppler, Color Flow transthoracic echocardiogram. The study was technically difficult. Exam performed in department. Left Ventricle Normal LV size. The estimated ejection fraction is 70 %. No evidence for diastolic dysfunction. No regional wall motion abnormalities noted. Right Ventricle Normal RV size. Normal systolic function. Atria Normal left atrium. Normal right atrium. No doppler evidence for ASD. Mitral Valve There is no mitral valve stenosis. Trivial mitral valve insufficiency. Tricuspid Valve There is no tricuspid stenosis. Trivial tricuspid valve insufficiency. Unable to estimate RV systolic pressure due to insufficient tricuspid regurgitant envelope. Aortic Valve Aortic sclerosis, no stenosis. There is no aortic stenosis. Trivial aortic valve insufficiency. Pulmonic Valve There is no pulmonic valvular stenosis. No pulmonic valve insufficiency. Great Vessels Normal aortic root. Pericardium/Pleural No pericardial effusion. Medication 22 gauge I.V. with prn adaptor inserted into left arm. Diluted definity 2ml given slow IV push to enhance endocardial definition. MMode/2D Measurements & Calculations LVIDd: 4.6 cm IVSd: 1.0 cm LVOT diam: 2.0 cm LVIDs: 2.8 cm LVPWd: 1.0 cm RVDd: 3.6 cm FS: 40.0 % LVOT area: 3.1 cm2 Ao root diam: 2.9 cm LAV(MOD-bp): 50.8 ml LVAd ap4: 25.4 cm2 LAV(MOD-bp) Indexed: 29.9 ml/m2 LVLd ap4: 7.0 cm LAV(MOD-sp2): 50.0 ml EDV(MOD-sp4): 77.3 ml LAV(MOD-sp4): 50.6 ml EDV(sp4-el): 77.9 ml LVAs ap4: 12.7 cm2 LVLs ap4: 5.3 cm ESV(MOD-sp4): 25.3 ml ESV(sp4-el): 25.9 ml EF(MOD-sp4): 67.3 % EF(sp4-el): 66.8 % SV(MOD-sp4): 52.0 ml SV(sp4-el): 52.0 ml LA A4 area: 19.1 cm2 LA dimension(2D): 3.2 cm RA A4 area: 17.4 cm2 TAPSE: 2.2 cm Time Measurements MV dec time: 0.19 sec Doppler Measurements & Calculations MV E max joe: 83.1 cm/sec Lat Peak E' Joe: 7.8 cm/sec Med Peak E' Joe: 7.8 cm/sec MV A max joe: 75.1 cm/sec E/E' lat: 10.6 E/E' med: 10.6 MV E/A: 1.1 Ao V2 max: 221.0 cm/sec AI max joe: 303.9 cm/sec LV V1 max: 91.8 cm/sec Ao max P.5 mmHg AI max P.9 mmHg LV V1 max P.4 mmHg Ao V2 mean: 149.7 cm/sec AI dec slope: 169.0 cm/sec2 LV V1 mean P.0 mmHg Ao mean P.2 mmHg AI P1/2t: 526.6 msec LV V1 mean: 66.2 cm/sec Ao V2 VTI: 55.8 cm LV V1 VTI: 25.6 cm AV (velocity ratio): 0.46 COLLIN(I,D): 1.4 cm2 COLLIN(V,D): 1.3 cm2 SV(LVOT): 80.4 ml PA V2 max: 92.4 cm/sec TR max joe: 228.1 cm/sec TR max P.8 mmHg ECHO/Echo Complete W/ Contrast Interpretation Summary The estimated ejection fraction is 70 %. No evidence for diastolic dysfunction. Trivial mitral valve insufficiency. Trivial aortic valve insufficiency. Ordering Physician: Kerry Medina Referring Physician: Kerry Medina Performed By: Tiffanie Arguello RDCS
--- NOTE | 2023-07-01 09:06 | CDU_ITS ---
Reason For Study: CAROTID STENOSIS Rt. Velocities/BP Lt. Velocities/BP Prox CCA 50.6/3.4 cm/sec. Prox CCA 69.9/9.5 cm/sec. Mid CCA 66.7/10.0 cm/sec. Mid CCA 87.5/11.7 cm/sec. Dist CCA 91.6/11.8 cm/sec. Dist CCA 87.5/11.7 cm/sec. Prox ICA 84.2/11.7 cm/sec. Prox ICA 81.2/14.2 cm/sec. Mid ICA 86.4/16.0 cm/sec. Mid ICA 91.1/13.1 cm/sec. Dist ICA 95.2/18.2 cm/sec. Dist ICA 88.9/17.5 cm/sec. Rt. ICA/CCA = 95.2/66.7=1.4. Lt. ICA/CCA = 91.1/87.5=1.0. Prox ECA 143.6/10.2 cm/sec. Prox ECA 192.3/0.0 cm/sec. Rt. Vert. 67.7/10.6 cm/sec. Lt. Vert. 66.9/7.6 cm/sec. Right Extracranial There is homogeneous, smooth atherosclerotic plaque noted in the right common carotid artery. There is homogeneous, smooth atherosclerotic plaque noted in the right internal carotid artery. There is heterogeneous, irregular atherosclerotic plaque noted in the right external carotid artery. Antegrade flow is noted in the right vertebral artery. Left Extracranial There is homogeneous, smooth atherosclerotic plaque noted in the left common carotid artery. There is heterogeneous, irregular atherosclerotic plaque noted in the left internal carotid artery. There is homogeneous, smooth atherosclerotic plaque noted in the left external carotid artery. Antegrade flow is noted in the left vertebral artery. Procedure Carotid Duplex [id number]. This is a Carotid Duplex examination using B-mode, color flow and specral Doppler. Exam performed in department. VL/Carotid Duplex Ultrasound Interpretation Summary Smooth plaque at the proximal right internal carotid artery with less than 50% stenosis Less than 50% stenosis right external carotid artery Regular minimal calcific plaque at the proximal left internal carotid artery wi th less than 50% stenosis Less than 50% stenosis left external carotid artery but close to this range. Patent antegrade vertebral arteries bilaterally Ordering Physician: Kerry Medina Referring Physician: Kerry Medina Performed By: Yudith Terrell, LUISITO, RVT
== END | disposition home or self-care (01) ==
LOC: CVS 08:57
PROVIDERS: PCP Internal Medicine; Referring Provider Internal Medicine; Visit Provider Internal Medicine
DX: I65.23 Occlusion and stenosis of bilateral carotid arteries (principal); I35.0 Nonrheumatic aortic (valve) stenosis
CPT/HCPCS: 93306; 93880; Q9957; A4216; C8929

== ENCOUNTER → 2023-11-20 | Outpatient (CLI) | payer MEDICARE, SELFPAY ==
--- NOTE | 2023-11-20 11:33 | US_ITS ---
INDICATION: History thyroid nodules -- Last US [facility] 2019. R 5 mm, L 3 mm, IS 3mm EXAMINATION: Ultrasound US Thyroid (eg thyroid, parathyroid, parotid) TECHNIQUE: Johnson scale and color doppler imaging was performed of the thyroid gland. COMPARISON: None. FINDINGS: RIGHT THYROID LOBE: Measures 4.7 x 1.6 x 1.5 cm. Homogeneous echotexture with normal vascularity. [Contains multiple tiny nodules: -0.4 cm hypoechoic solid nodule in the lateral aspect. -0.3 cm hypoechoic solid nodule in the lateral aspect. LEFT THYROID LOBE: Measures 4.7 x 1.6 x 1.7 cm. Homogeneous echotexture with normal vascularity. [No thyroid nodules are present. ISTHMUS: Measures 0.3 cm. There is a 0.4 cm solid hypoechoic nodule in the isthmus. US/Thyroid IMPRESSION: Multinodular goiter: -0.4 cm hypoechoic solid TR-4 nodule in the lateral aspect of the right thyroid lobe is moderately suspicious. Recommend follow-up ultrasound in one year. -0.3 cm hypoechoic solid TR-4 nodule in the lateral aspect of the right thyroid lobe is moderately suspicious. Recommend follow-up ultrasound in one year. -0.4 cm solid hypoechoic TR-4 nodule in the isthmus is moderately suspicious. Recommend follow-up ultrasound in one year. Electronically Signed: Jalen Iraheta MD at 20:59 EDT ,
== END | disposition home or self-care (01) ==
LOC: US 11:32
PROVIDERS: PCP Internal Medicine; Referring Provider Internal Medicine; Visit Provider Internal Medicine
DX: Z86.39 Personal history of other endocrine, nutritional and metabolic disease (principal)
CPT/HCPCS: 76536

== ENCOUNTER → 2023-12-02 | Outpatient (CLI) | payer MEDICARE, SELFPAY ==
[2023-12-02 10:20] LABS: Free T3 2.6 pg/mL (2.18-3.98); T4 Free Direct 1.08 ng/dL (0.76-1.46); Thyroid Stim Hormone (TSH) 0.713 uIU/mL (0.358-3.740)
== END | disposition home or self-care (01) ==
LOC: LAB 08:56
PROVIDERS: PCP Internal Medicine; Referring Provider Internal Medicine; Visit Provider Internal Medicine
DX: E04.1 Nontoxic single thyroid nodule (principal)
CPT/HCPCS: 36415; 84439; 84443; 84481

== ENCOUNTER → 2024-07-16 | Outpatient (CLI) | payer MEDICARE, SELFPAY ==
[2024-07-16 10:26] LABS: Absolute Lymphocyte Count 1.31 X10^3/uL (0.83-4.51); Absolute Neutrophil Count 4.1 X10^3/uL (2.0-7.7); Basophil# 0.06 X10^3/uL; Eosinophil# 0.06 X10^3/uL; Hematocrit 47.1 % (37-47); Hemoglobin 15.9 g/dL (12.0-15.0); Lymphocyte # 1.31 X10^3/ul (0.83-4.51); Mean Corp Hgb Conc 33.8 g/dL (32-36); Mean Corpuscular Hgb 29.7 pg (27.0-32.0); Mean Platelet Vol. 10.5 fl (6.2-12.0); Monocyte# 0.39 X10^3/uL; Monocyte% 6.5 % (0-10); NRBC Flagged by Analyzer 0 % (0-5); Neutrophil # 4.12 X10^3/uL (2.7-7.7); Neutrophil % 69.2 % (47-70); POSITIVE COUNT YES; RBC Distribution Width CV 12.4 % (11.6-14.6); RBC Distribution Width SD 39.8 fl (35.1-43.9); Red Blood Count 5.35 M/mm3 (4.2-5.4)
[2024-07-16 10:37] LABS: Prothrombin Time (Protime)PT. 13.1 SECONDS (11.7-14.9)
[2024-07-16 11:01] LABS: ALB/GLOB Ratio 1.6 RATIO (0.9-2.4); AST(SGOT) 22 U/L (<=31); Alanine Aminotransfer ALT/SGPT 9 U/L (<=34); Albumin, Serum 4.2 g/dL (3.4-4.8); Alkaline Phosphatase 73 U/L (35-104); Anion Gap 13 (5-15); BUN 14 mg/dL (4-19); Calcium,Total 9.9 mg/dL (7.6-11.0); Carbon Dioxide 20.8 mmol/L (21.0-32.0); Chloride 102 mmol/L (98-108); Creatinine, Serum 0.76 mg/dL (0.70-1.20); EST Glomerular Filtration Rate 79 (>60); Globulin 2.6 g/dL (2.2-4.2); Glucose 96 mg/dL (70-99); Potassium 4.2 mmol/L (3.3-5.1); Protein, Total 6.8 g/dL (5.9-8.4); Sodium Level 136 mmol/L (133-145); Total Bilirubin 0.65 mg/dL (0.00-1.30)
[2024-07-16 11:20] LABS: Differential Indicated SCAN CRITERIA MET
[2024-07-16 11:22] LABS: Platelet Estimate A (ADEQ); Platelet Morphology CLUMPED
[2024-07-20 15:08] LABS: Albumin 3.8 g/dL (2.9-4.4); Alpha-1-Globulins 0.3 g/dL (0.0-0.4); Alpha-2-Globulins 0.8 g/dL (0.4-1.0); Gamma Globulin 0.7 g/dL (0.4-1.8); Immunoglobulin A 60 mg/dL (64-422); Immunoglobulin G 716 mg/dL (586-1602); Immunoglobulin M 31 mg/dL (26-217); PROEL- TOTAL PROTEIN 6.6 g/dL (6.0-8.5)
== END | disposition home or self-care (01) ==
LOC: LAB 09:40
PROVIDERS: PCP Internal Medicine; Referring Provider Internal Medicine Gastroenterology; Visit Provider Internal Medicine Gastroenterology
DX: E83.119 Hemochromatosis, unspecified (principal); R41.89 Other symptoms and signs involving cognitive functions and awareness
CPT/HCPCS: 36415; 80053; 82140; 82784; 84165; 85025; 85610; 86334

== ENCOUNTER 2024-09-07 08:57 | Outpatient (RCR) | payer SELFPAY | END 2024-10-07 23:59 | LOC: NS 08:57 | PROVIDERS: PCP Internal Medicine; Referring Provider Internal Medicine Gastroenterology; Visit Provider Internal Medicine Gastroenterology | DX: Z71.3 Dietary counseling and surveillance (principal); T78.1XXD Other adverse food reactions, not elsewhere classified, subsequent encounter; Z78.9 Other specified health status | CPT/HCPCS: 97802 ==

== ENCOUNTER 2024-09-12 08:33 | Emergency (ER) | payer MEDICARE, SELFPAY ==
[2024-09-12 08:36] VITALS: BP 198/73; PULSE 75; RESP 16; TEMP 36.7; O2SAT 99; BMI 23.8
[2024-09-12 10:36] VITALS: BP 168/58; PULSE 78; RESP 17; TEMP 36.6; O2SAT 95
[2024-09-12 12:41] VITALS: BP 145/78; PULSE 86; RESP 16; TEMP 37.2; O2SAT 100
== END 2024-09-12 12:42 | disposition home or self-care (01) ==
PROVIDERS: Emergency Provider Surgery; PCP Internal Medicine; Visit Provider Surgery
DX: M17.12 Unilateral primary osteoarthritis, left knee (principal); M25.512 Pain in left shoulder; M25.511 Pain in right shoulder; M25.561 Pain in right knee; K21.9 Gastro-esophageal reflux disease without esophagitis; J45.909 Unspecified asthma, uncomplicated; R09.89 Other specified symptoms and signs involving the circulatory and respiratory systems
CPT/HCPCS: 71046; 73564; 99284

== ENCOUNTER → 2024-10-18 | Outpatient (CLI) | payer SELFPAY | END | disposition home or self-care (01) | LOC: LABSPEC 07:53 | PROVIDERS: PCP Internal Medicine; Visit Provider Physician Assistant | DX: R30.0 Dysuria (principal) | CPT/HCPCS: 87077; 87086; 87088; 87186 ==

== ENCOUNTER 2024-12-01 14:32 | Emergency (ER) | payer MEDICARE, SELFPAY ==
[2024-12-01 14:33] VITALS: BP 181/69; PULSE 71; RESP 16; TEMP 36.6; O2SAT 97; BMI 25.6
[2024-12-01 16:32] VITALS: BP 204/70; PULSE 80; RESP 13; TEMP 36.6; O2SAT 100
--- NOTE | 2024-12-01 17:00 | EDS_ITS ---
HPI History of Present Illness Chief Complaint: Palpitations Narrative Narrative: 79-year-old female past medical history of glaucoma and macular degeneration states she has been on eyedrops from her hotel guest service agent, Dr. Chan, for 3 to 4 months. She presents to the emergency department today because of episodes that happened on Friday, 2 days ago. She relates history that she was having chest pains, at least 4 episodes within 30 to 45 minutes. That resolved. Later that evening she experienced a regular heart rate and palpitations. She states she awoke with that the next morning, but has since resolved. She was reading that some of her eyedrops could cause cardiac events. She withheld her eyedrops and made an appointment with her hotel guest service agent to see if there was a correlation. She states she wants to restart the medication but is afraid to do so. She presents to the emergency department wanting to make sure that the chest pain that she had 2 days ago was not a cardiac event that was significant. She states she was told by her friend that there was a blood test that could be performed to see if she had a heart attack on Friday. She denies other symptoms, no nausea or vomiting, no shortness of breath. [facility] Medical History Left knee pain History of thyroid nodule Secondary polycythemia Oral allergy syndrome Upper respiratory infection Suspected COVID-19 virus infection Neuropathy Hives Temporal arteritis Ductal carcinoma in situ (DCIS) of breast Gallstones Thyroid nodule History of pneumonia as a child GERD (gastroesophageal reflux disease) Vegan diet Arthritis Acute urticaria Osteopenia Macular degeneration Hemochromatosis Glaucoma Cataract Asthma Allergic rhinitis Acid reflux Home Medications ?Medication ?Instructions ?Recorded ?Last Taken ?Type L.acidophilus-L.plantarum-B.animalis-B.longum 1 ea PO DAILY 04/26/14 03/09/16 History 2 billion cell capsule diphenhydramine HCl 25 mg capsule 25 mg PO BID PRN PRN Allergies 07/18/14 Unknown History biotin 1 mg capsule 2,500 mcg PO QDAY 10/17/17 U nknown History Nattokinase 2,000 mg PO DAILY 12/05/20 U nknown History lutein 20 mg capsule 20 mg PO DAILY 06/10/22 Unkn own History magnesium amino acid chelate 100 100 mg PO DAILY 12/09 Unknown History mg tablet phlebotomies for hemachromatosis See Rx Instructions I M .COMPLEX 12/09/22 Unknown History albuterol sulfate 90 mcg/actuation 2 puff inhalation Q 4H PRN PRN 11/13/23 Unknown Rx aerosol inhaler Wheezing #8.5 grams quercetin 500 mg capsule mg PO 06/30/24 Unknown Histo ry Held on 09/12/24. Instructions: Conflicting Appointment tafluprost (PF) 0.0015 % eye drops 1 drp ophthalmic (e ye) QHS 06/30/24 Unknown History in a dropperette azithromycin 250 mg tablet 250 mg PO .COMPLEX #12 tabs 09/07/24 Unknown Rx cephalexin 500 mg capsule 500 mg PO TID #15 caps 10/18 Unknown Rx Allergy/AdvReac Type Severity Reaction Status Date / Time aspirin Allergy Mild unknown Verified 12/01/24 14:37 calcium carbonate (From Tums) Allergy Mild Other Verified 12/01/24 14:37 estradiol (From Vagifem) Allergy Mild unknown Verified 12/01/24 14:37 latanoprost (From Xalatan) Allergy Mild unknown Verified 12/01/24 14:37 miconazole (From Monistat 3) Allergy Mild burining, Verified 12/01/24 14:37 headache, nausea phenazopyridine Allergy Mild Other Verified 12/01/24 14:37 propoxyphene (From Darvon) Allergy Mild Other Verified 12/01/24 14:37 ranitidine (From Zantac) Allergy Mild unknown Verified 12/01/24 14:37 skin cleanser combination Allergy Mild burining, Verified 12/01/24 14:37 no.17 (From Monistat 3) headache, nausea tioconazole (From Monistat 1 Allergy Mild burning, Verified 12/01/24 14:37 (tioconazole)) headache, nausea amoxicillin Allergy Anaphylaxis Verified 12/01/24 14:37 ibuprofen (From Advil) Allergy Other Verified 12/01/24 14:37 indomethacin (From Indocin) Allergy Anaphylaxis Verified 12/01/24 14:37 indomethacin sodium (From Allergy Anaphylaxis Verified 12/01/24 14:37 Indocin) prednisolone Allergy Swelling Verified 12/01/24 14:37 Sulfa (Sulfonamide Allergy Anaphylaxis Verified 12/01/24 14:37 Antibiotics) barium sulfate AdvReac Rash Verified 12/01/24 14:37 nitrofurantoin AdvReac Other Verified 12/01/24 14:37 macrocrystalline (From Macrodantin) prednisone AdvReac Other Verified 12/01/24 14:37 progesterone AdvReac Other Verified 12/01/24 14:37 propoxyphene HCl (From AdvReac Other Verified 12/01/24 14:37 Darvon) Family History Sister Breast cancer Mother Diabetes Myocardial infarction, Onset Age: 69 Arthritis Liver disease Osteoporosis Father Myocardial infarction, Onset Age: 75 Brother Myocardial infarction, Onset Age: 44 Parkinsons Other Cancer Surgical History H/O laparoscopy History of lumpectomy of left breast History of cataract surgery History of cholecystectomy Social History Smoking Status: Never smoker alcohol intake: never substance use type: does not use what type of physical activity do you participate in: walking frequency: 3-4 times per week ROS ROS ED ROS Narrative Review of systems is positive for chest pain 2 days ago. 4 episodes within 30 to 45 minutes. Positive for regular heart rate/palpitations. No fevers or chills, no cough, no exacerbating or alleviating factors. Currently symptom- free. EXAM Physical Exam Narrative Exam Narrative: Afebrile. Vital signs noted. Nontoxic-appearing. Cardiovascular examination reveals regular rate and rhythm. Lungs are clear to auscultation bilaterally. Abdomen is soft and nontender without guarding or rebound. Positive bowel sounds. Neurological examination nonfocal, nonlateralizing. Seen ambulating independently to emergency department room. Const Vital Signs: 12/01/24 14:33 12/01/24 16:32 12/01/24 16:49 Temperature 97.8 F 97.8 F Temperature Source Oral Oral Pulse Rate 71 80 Respiratory Rate 16 13 Respiratory Effort Normal Non-Labored Blood Pressure 181/69 H 204/70 H Blood Pressure Mean 106 114 Pulse Ox 97 100 Oxygen Delivery Method Room Air Room Air 12/01/24 19:22 12/01/24 19:25 12/01/24 19:26 Temperature Temperature Source Pulse Rate 60 63 Respiratory Rate 18 Respiratory Effort Blood Pressure 171/57 H Blood Pressure Mean 83 Pulse Ox 98 Oxygen Delivery Method Room Air 12/01/24 19:30 Temperature Temperature Source Pulse Rate 59 L Respiratory Rate 12 Respiratory Effort Blood Pressure Blood Pressure Mean Pulse Ox 99 Oxygen Delivery Method MDM MDM MDM Narrative Medical decision making narrative: Differential diagnosis includes but not limited to ACS versus atrial fibrillation versus PACs versus PVCs. I had a lengthy discussion with the patient. She is concerned about the events of Friday and the chest pain that she had. Chest pain workup was pursued. EKG obtained and interpreted by myself independently as normal sinus rhythm at 68 bpm without ectopy or acute ST changes. No STEMI. There is a right bundle branch block. When compared to prior, it was present at that time as well. No significant change from previous. I reviewed her laboratory work and she has a normal white count of 6.3 with hemoglobin 14.8, hematocrit 43.8, platelet count 228. I reviewed her BMP which is grossly normal with a normal BUN and creatinine. Glucose 99. High-sensitivity troponin is 14. I feel this is greater than a 6-hour troponin and that she does not want a delta troponin performed. I find this reasonable. Chest x-ray in 1 view interpreted by myself shows cardiomegaly but no acute process, no pneumonia or pneumothorax. I reviewed the radiology report which confirms my independent interpretation. At this point in time, I do feel it is safe to follow-up with her primary care provider, and her hotel guest service agent tomorrow. I feel she has been ruled out for ACS with a single troponin. Return instructions to the emergency department were reviewed. Disposition is discharged home in stable condition. History & Record Review Discussion w/independent historian: Patient Lab Data Attestation: I reviewed the patient's lab results. Labs: Laboratory Results - last 24 hr 12/01/24 17:20 WBC 6.3 RBC 5.20 Hgb 14.8 Hct 43.8 MCV 84.2 MCH 28.5 MCHC 33.8 RDW Std Deviation 38.8 RDW Coeff of Nicole 12.8 Plt Count 228 MPV 9.5 Immature Gran % (Auto) 0.300 Neut % (Auto) 60.3 Lymph % (Auto) 28.5 [place] % (Auto) 7.4 Eos % (Auto) 2.2 Baso % (Auto) 1.3 H Absolute Neuts (auto) 3.8 Absolute Lymphs (auto) 1.80 Nucleated RBC % 0 Sodium 138 Potassium 4.2 Chloride 103 Carbon Dioxide 24.9 Anion Gap 10 BUN 17 Creatinine 0.70 Estim Creat Clear Calc 55.02 Est GFR (MDRD) Non-Af 87 BUN/Creatinine Ratio 24.8 H Glucose 99 Calcium 10.1 Troponin T High Sens 14 Radiography Diagnostic Testing: Clinical Impression(s) from Imaging Studies Chest X-Ray 12/01/24 17:22 IMPRESSION: Mild cardiomegaly. No evidence of acute cardiopulmonary disease. Reading Location: [facility] Discharge Plan Triage Chief Complaint: Palpitations ED Provider: Chico Enriquez Dx/Rx/DC Orders Clinical Impression: Chest pain, Heart palpitations Instructions: ED Chest Pain, Uncertain Cause, ED Heart Palpitations Prescriptions: No Action biotin 1 mg capsule 2,500 mcg PO QDAY phlebotomies for hemachromatosis See Rx Instructions IM .COMPLEX Patient Comments: once every 3 months Rx Instructions: intramuscularly q 3 months; lutein 20 mg capsule 20 mg PO DAILY Rx Instructions: give with meal/snack albuterol sulfate 90 mcg/actuation HFA aerosol inhaler 2 puff INHALATION Q4H PRN PRN (Reason: Wheezing) Qty: 8.5 3RF tafluprost (PF) 0.0015 % dropperette 1 drp ophthalmic (eye) QHS quercetin 500 mg capsule PO cephalexin 500 mg capsule 500 mg PO TID Qty: 15 0RF L.acidoph,plant-B.animal,long 1 EACH capsule 1 ea PO DAILY Patient Comments: enzymes Nattokinase tablet 2,000 mg PO DAILY Patient Comments: blood thinner. Rx Instructions: 2000 FU diphenhydramine HCl 25 MG capsule 25 mg PO BID PRN PRN (Reason: Allergies) Patient Comments: allegry magnesium amino acid chelate 100 mg tablet 100 mg PO DAILY azithromycin 250 mg tablet 250 mg PO .COMPLEX Qty: 12 0RF Rx Instructions: 2 tablets (500 mg) on day 1, then 1 tablet daily on days 2 through 11 Primary Care Provider: Kerry Medina Referrals: Kerry Medina MD [Primary Care Provider, Internal Medicine - [facility]] - 3-5 Days Activity Restrictions/Additional Instructions: Follow-up with Dr. Chan. With ophthalmology tomorrow as scheduled. Return with increasing chest pain or continued heart palpitations, new or worsening symptoms. Print Language: Nepali Disposition Disposition: Home, Self Care
--- NOTE | 2024-12-01 17:00 | EKG12_ITS ---
Test Reason : PALP Blood Pressure : */* mmHG Vent. Rate : 68 BPM Atrial Rate : 68 BPM P-R Int : 174 ms QRS Dur : 136 ms QT Int : 426 ms P-R-T Axes : 57 49 20 degrees QTcB Int : 452 ms Normal sinus rhythm Right bundle branch block Abnormal ECG Confirmed by Young Brush ([id number]), restaurant expeditor LISANDRA CARVALHO ([id number]) on 12/03/2024 5:46:08 AM Referred By: JIGNESH/SANDHYA Confirmed By: Young Brush
--- NOTE | 2024-12-01 17:22 | RAD_ITS ---
PROCEDURE: CHEST 1 VIEW (PORTABLE) 12/01/2024 REASON FOR EXAM: CHEST PAIN TECHNIQUE: Frontal view of the chest. COMPARISON: 09/12/2024 FINDINGS: Lungs/Pleura: Clear. No pneumothorax or sizable pleural effusion. Heart/Mediastinum: Mildly enlarged. No vascular congestion. Bones/Soft tissues: Degenerative changes of the spine. Left chest wall surgical clips. RAD/Chest 1 View (Portable) IMPRESSION: Mild cardiomegaly. No evidence of acute cardiopulmonary disease. Reading Location: [id number]
[2024-12-01 17:41] LABS: Hematocrit 43.8 % (37-47); Hemoglobin 14.8 g/dL (12.0-15.0); Immature Granulocytes Count 0.020 X10^3/uL (0.0-0.0); Mean Corp Hgb Conc 33.8 g/dL (32-36); Mean Corpuscular Volume 84.2 fL (81-99); Mean Platelet Vol. 9.5 fl (6.2-12.0); NRBC Flagged by Analyzer 0 % (0-5); Platelet Count 228 K/mm3 (150-450); RBC Distribution Width CV 12.8 % (11.6-14.6); RBC Distribution Width SD 38.8 fl (35.1-43.9); Red Blood Count 5.20 M/mm3 (4.2-5.4); White Blood Count 6.3 K/mm3 (4.4-11.0)
[2024-12-01 18:20] LABS: Anion Gap 10 (5-15); BUN 17 mg/dL (4-19); BUN/Creat Ratio 24.8 RATIO (10-20); Calcium,Total 10.1 mg/dL (7.6-11.0); Carbon Dioxide 24.9 mmol/L (21.0-32.0); Chloride 103 mmol/L (98-108); Estimated Creatinine Clearance 55.02 ml/min (50-250); Glucose 99 mg/dL (70-99); Potassium 4.2 mmol/L (3.3-5.1); Troponin T High Sensitivity 14 ng/L (<=14)
--- OUTSIDE RECORDS SUMMARY | 2024-12-01 19:10 | XMS RPT_ITS | CCD ---
Author Organization [facility] CliniSyhi Care Team Providers Care Exhibition Carver Name Role Phone Dr. Katarina Medina Primary Care Provider Dr. Katarina Medina Referring Provider 1(330) Dr. Moe Beasley Attending Provider [phone] Dr. Katarina Medina Attending Provider 1(330) Inderjit DE LA ROSA MD, Daesung Unavailable Merrill RN, Mandi Unavailable Unavailable Katarina Medina MD Primary Care Provider [phone] ) Dr. Katarina Medina Primary Care Provider Dr. Katarina Medina Referring Provider 1(330) Inderjit DE LA ROSA MD, Daesung Unavailable Dojarek RN, Mandi Unavailable Unavailable Katarina Medina MD Primary Care Provider 1(330 ) Dr. Katarina Medina Primary Care Provider Dr. Katarina Medina Attending Provider 1(330) Dr. Katarina Medina Referring Provider 1(330) Dr. Katarina Medina Primary Care Provider Dr. Katarina Medina Attending Provider 1(330) Dr. Katarina Medina Referring Provider 1(330) Katarina Medina MD Primary Care Provider 1(330 ) Dr. Katarina Medina Primary Care Provider Dr. Katarina Medina Attending Provider 1(330) Dr. Katarina Medina Referring Provider 1(330) Inderjit DE LA ROSA MD, Daesung Unavailable Merrill RN, Mandi Unavailable Unavailable Katarina Medina MD Primary Care Provider Merrill RN, Mandi Unavailable Unavailable Dr. Katarina Medina Primary Care Provider Dr. Katarina Medina Attending Provider Dr. Katarina Medina Referring Provider [phone] DEREK Calvert Attending Provider Inderjit DE LA ROSA, Meryl Unavailable Dr. Katarina Medina Primary Care Provider Dr. Katarina Medina Attending Provider [phone] Laurence Billingsley Attending Provider Dr. Katarina Medina Referring Provider [phone] Seamus Turk Attending Provider Katarina Medina MD Primary Care Provider Jaiden Real MD, Doc Unavailable Aditya Chan Unavailable Rhonda Wasserman Unavailable Brent DE LA ROSA, Олег Randhawa Unavailable CHANDA DE LA ROSA, JOSHUA Das Primary Care Physician CHANDA DE LA ROSA, JOSHUA Das Primary Care Unavail able SHEILA CHAN MD Attending Unavail able Dr. Katarina Medina MD Primary Care Provider [phone] Dr. Katarina Medina MD Attending Provider Dr. Katarina Medina MD Referring Provider Dr. Pascual Fletcher DO Attending Provider Dr. Pascual Fletcher DO Referring Provider Moose Calvert Attending Provider [phone] Dr. Nathanael Bowers DO Emergency Provider [facility] Dr. Nathanael MESA Attending Provider ADAM, KATARINA M Primary Care Unavailable MASCI, LUIS A Referring Unavailable ADAM, KATARINA M Primary Care Unavailable ADAM, KATARINA M Primary Care Unavailable ADAM, KATARINA M Primary Care Unavailable MASCI, LUIS A Referring Unavailable ADAM, KATARINA M Primary Care Unavailable MASCI, LUIS A Referring Unavailable ADAM, KATARINA M Primary Care Unavailable MASCI, LUIS A Attending Unavailable ADAM, KATARINA M Primary Care Unavailable IBRIKJIOLI Attending Unavailable ADAM, KATARINA M Primary Care Unavailable JACQUELINE GRIFFITHS Attending UnavailADITYA Kaplan Referring Unavailable ADAM, KATARINA M Primary Care Unavailable AIRAM ALVARADO Attending Unavailable IBRIKJI, SIDONIE Referring Unavailable ADAM, KATARINA M Primary Care Unavailable ADAM, KATARINA M Primary Care Unavailable MASCI, LUIS A Referring Unavailable ADAM, KATARINA M Primary Care Unavailable MASCI, LUIS A Attending Unavailable ADAM, KATARINA M Primary Care Unavailable ADAM, KATARINA M Primary Care Unavailable ADAM, KATARINA M Primary Care Unavailable MASCI, LUIS A Referring Unavailable ADAM, KATARINA M Primary Care Unavailable ADAM, KATARINA M Primary Care Unavailable ADAM, KATARINA M Primary Care Unavailable ADAM, KATARINA M Primary Care Unavailable MASCI, LUIS A Referring Unavailable Friend, Pascual Attending Unavailable Adam, Katarina Referring Unavailable Adam, Katarina Primary Care Unavailable Friend, Pascual Attending Unavailable Adam, Katarina Primary Care Unavailable Friend, Pascual Referring Unavailable Friend, Pascual Attending Unavailable Friend, Pascual Referring Unavailable Adam, Katarina Primary Care Unavailable Moose Calvert Attending Unavailable Adam, Katarina Referring Unavailable Adam, Katarina Primary Care Unavailable Adam, Katarina Primary Care Unavailable Adam, Katarina Attending Unavailable Moose Calvert Attending Unavailable Adam, Katarina Primary Care Unavailable Adam, Katarina Referring Unavailable Adam, Katarina Attending Unavailable Adam, Katarina Primary Care Unavailable Alan Reyes Attending Unavailable Adam, Katarina Referring Unavailable Adam, Katarina Primary Care Unavailable Adam, Katarina Primary Care Unavailable Adam, Katarina Attending Unavailable Adam, Katarina Primary Care Unavailable Adam, Katarina Attending Unavailable Friend, Pascual Attending Unavailable Adam, Katarina Referring Unavailable Adam, Katarina Primary Care Unavailable Adam, Katarina Attending Unavailable Adam, Katarina Referring Unavailable Adam, Katarina Primary Care Unavailable Friend, Pascual Attending Unavailable Friend, Pascual Referring Unavailable Adam, Katarina Primary Care Unavailable Adam, Katarina Referring Unavailable Adam, Katarina Primary Care Unavailable Adam, Katarina Attending Unavailable Moose Calvert Attending Unavailable Adam, Katarina Primary Care Unavailable Nathanael Bowers Attending Unavailabl e Adam, Katarina Primary Care Unavailable Allergies Allergy Classification Reported Allergen(s) Allergy Type Date of Onset Reaction(s) Facility (20 sources) Amoxicillin; Translations: [AMOXICILLIN] Drug Allergy 11-23-19 05 Intolerance [facility] Work Phone: (20 sources) Aspirin; Translations: [ASPIRIN] Drug Allergy 07-14-19 09 unknown [facility] (20 sources) Calcium Carbonate; Translations: [CALCIUM CARBONATE] Drug Allergy 01-11-20 09 unknown, Other [facility] Comment on above: skin reaction (20 sources) Estradiol; Translations: [ESTRADIOL] Drug Allergy 04-19-19 06 unknown [facility] Work Phone: (20 sources) Ibuprofen; Translations: [IBUPROFEN] Drug Allergy 11-23-19 05 Intolerance [facility] (15 sources) Indomethacin Drug Allergy 05-29-19 22 Anaphylaxis [facility] (20 sources) Indomethacin; Translations: [INDOMETHACIN SODIUM] Drug Allergy 11-23-19 05 Intolerance [facility] Work Phone: (20 sources) latanoprost; Translations: [LATANOPROST] Drug Allergy 04-19-19 06 Shortness of Breath [facility] Work Phone: (20 sources) Miconazole; Translations: [MICONAZOLE] Drug Allergy 02-05-20 05 Intolerance [facility] Work Phone: (20 sources) prednisoLONE; Translations: [PREDNISOLONE] Drug Allergy 02-16-20 14 Swelling [facility] (20 sources) predniSONE; Translations: [PREDNISONE] Drug Allergy 11-23-19 05 Other [facility] Work Phone: (20 sources) Progesterone; Translations: [PROGESTERONE] Drug Allergy 11-23-19 05 Other [facility] Work Phone: [phone] (20 sources) Propoxyphene; Translations: [PROPOXYPHENE HCL] Drug Allergy 11-23-19 05 Mental Status Change [facility] Work Phone: (15 sources) raNITIdine Drug Allergy 05-29-19 22 unknown [facility] (20 sources) Sulfonamides (Antibiotic); Translations: [SULFA (SULFONAMIDE ANTIBIOTICS)] Allergy to substance 11-23-19 05 Anaphylaxis [facility] Work Phone: (20 sources) tioconazole; Translations: [TIOCONAZOLE] Drug Allergy 11-23-19 05 burning, headache, nausea [facility] Work Phone: (16 sources) skin cleanser combination no.17; Translations: [skin cleanser combination no.17] Allergy to substance 05-29-19 22 burining, headache, nausea [facility] (16 sources) nitrofurantoin macrocrystalline; Translations: [nitrofurantoin macrocrystalline] Propensity to adverse reactions 05-29-19 22 Other [facility] (2 sources) BARIUM DRINK Propensity to adverse reactions 12-06-19 21 Rash [facility] Work Phone: [phone] (2 sources) MONOSTAT Propensity to adverse reactions 12-06-19 21 Other [facility] Work Phone: [phone] (5 sources) PSORIASIS LOTION Propensity to adverse reactions 12-06-19 21 Rash [facility] Work Phone: [phone] (20 sources) Nitrofurantoin; Translations: [NITROFURANTOIN] Drug Allergy 11-23-19 05 [facility] Work Phone: (20 sources) Phenazopyridine; Translations: [PHENAZOPYRIDINE HCL] Drug Allergy 12-25-19 05 Intolerance [facility] Work Phone: (20 sources) raNITIdine; Translations: [RANITIDINE HCL] Drug Allergy 03-25-19 08 [facility] Work Phone: (20 sources) Barium Iodide; Translations: [BARIUM IODIDE] Propensity to adverse reactions 11-23-19 05 [facility] Work Phone: (20 sources) psoriosis lotion [Other] Propensity to adverse reactions 11-23-19 05 [facility] Work Phone: (20 sources) Barium Sulfate; Translations: [BARIUM SULFATE] Drug Allergy 11-01-19 22 [facility] (20 sources) sunflower seed extract; Translations: [SUNFLOWER SEED] Drug Allergy 12-22-19 23 [facility] (20 sources) Tree and shrub pollen; Translations: [TREE AND SHRUB POLLEN] Drug Allergy 01-15-20 Other: See Comments [facility] (9 sources) Phenazopyridine Drug Allergy 01-26-20 Other [facility] Comment on above: intolerance (9 sources) Propoxyphene Drug Allergy 01-26-20 Other [facility] Comment on above: mental status change blacked out with postural changes (1 source) OTHER; Translations: [OTHER] Propensity to adverse reactions (disorder) 11-23-19 [facility] Rep[facility] (1 source) Amoxicillin Drug Allergy 10-19-19 [facility] Repository (1 source) Aspirin Drug Allergy 10-19-19 [facility] Repository (1 source) Barium sulfate Drug allergy (disorder) 10-19-19 [facility] Repository (1 source) Estradiol Drug Allergy 10-19-19 [facility] Repository (1 source) Ibuprofen Drug Allergy 10-19-19 [facility] Repository (1 source) Indomethacin Drug Allergy 10-19-19 [facility] Repository (1 source) latanoprost Drug Allergy 10-19-19 [facility] Repository (1 source) Miconazole Drug Allergy 10-19-19 [facility] Repository (1 source) Phenazopyridine Drug Allergy 10-19-19 [facility] Repository (1 source) prednisoLONE Drug Allergy 10-19-19 [facility] Repository (1 source) predniSONE Drug Allergy 10-19-19 [facility] Repository (1 source) Progesterone Drug Allergy 10-19-19 [facility] Repository (1 source) Propoxyphene Drug Allergy 10-19-19 [facility] Repository (1 source) raNITIdine Drug Allergy 10-19-19 [facility] Repository (1 source) tioconazole Drug Allergy 10-19-19 [facility] Repository Medications Current Medications Medication Drug Class(es) Dates Sig (Normalized) Sig (Original) [id number] 200 actuat albuterol 0.09 mg/actuat metered dose inhaler (20 sources) beta2-Adrenergic Agonist Start: 06-10-2022 End: 11-13-2023 Albuterol Sulfate 90 mcg/actuation HFA aerosol inhaler Active 2 NMA INHALATION EVERY 4 HOURS NEEDED as needed for Wheezing 8.5 3 November 13, 2023 11:35am Start: 06-10-2022 take 1 puff(s) by in halation every four hours as needed Albuterol Sulfate Active 2 PUFF INHALATION EVERY 4 HOURS NEEDED 8.5 June 10, 2022 9:10am Start: 07-18-2014 take 1 puff(s) by in halation every four hours as needed Albuterol Sulfate Active 2 PUFF INHALATION EVERY 4 HOURS NEEDED July 18, 2014 10:36am Start: 07-18-2014 End: 06-10-2022 take 1 puff(s) by inhalation every four hours as needed Albuterol Sulfate Discontinued 2 PUFF INHALATION EVERY 4 HOURS NEEDED July 18, 2014 12:00am June 10, 2022 9:10am Start: 07-18-2014 End: 06-10-2022 take 1 puff(s) by inhalation every four hours as needed Albuterol Sulfate Discontinued 2 PUFF INHALATION EVERY 4 HOURS NEEDED July 17, 2014 11:00pm June 10, 2022 8:10am Start: 07-18-2014 take 1 puff(s) by in halation every four hours as needed Albuterol Sulfate Active 2 PUFF INHALATION EVERY 4 HOURS NEEDED July 17, 2014 11:00pm Start: 07-18-2014 take 1 puff(s) by in halation every four hours as needed Albuterol Sulfate Active 2 PUFF INHALATION EVERY 4 HOURS NEEDED July 18, 2014 12:00am End: 05-22-2022 ALBUTEROL INHALATION Inhale as instructed. 0 05/22/2022 Discontinued ALBUTEROL INHALA TION Inhale as instructed. 0 Active Comment on above: Inhale as instructed . azithromycin 250 mg oral tablet (11 sources) Macrolide Antimicrobial Start: 09-02-19 End: 09-08-19 Azithromycin 250 mg tablet Active 250 mg PO .COMPLEX 12 0 September 07, 2024 10:39am 2 tablets (500 mg) on day 1, then 1 tablet daily on days 2 through 11 Bacillus coagulans / Inulin (20 sources) take 1 capsule by mouth once daily Bacillus coagulans/inulin (PROBIOTIC WITH PREBIOTIC ORAL) Take 1 capsule by mouth once daily. Active take 1 capsule by mouth once romi ly Bacillus coagulans/inulin (PROBIOTIC WITH PREBIOTIC ORAL) Take 1 capsule by mouth once daily. 0 Active Comment on above: Take 1 capsule by mo [facility] once daily. benoxinate hydrochloride 4 mg/ml / fluorescein sodium 3 mg/ml ophthalmic solution (2 sources) Diagnostic Dye Start: 06-16-2024 End: 06-16-2024 fluorescein-benoxi vipul 0.3-0.4 % 1 drop (FLURESS) Start: 06-16-2024 End: 06-16-2024 1 drop, BOTH EYES, DIRECT ED, Starting on Fri06/16/24 at 0800, Until Fri06/16/24 at 1959, Administer for applanation tonometry. In the event of a Fluress shortage, administer Rachel-Fluor 1 drop into both eyes as directed for applanation tonometry, OPHT CLINIC MED ORDERS biotin 1 mg oral capsule (20 sources) Start: 10-17-2017 Biotin 1 mg ca psule Active 2500 ug PO daily October 17, 2017 12:00am Start: 10-17-2017 take 2500 ug by mouth once romi ly Biotin Active 2500 MCG PO daily October 17, 2017 12:00am take 1 capsule by mouth once romi ly Biotin 2,500 mcg cap Indications: Hair loss Take 2,500 mg by mouth once daily. Active Comment on above: [facility] 2,[facility] cephalexin 500 mg oral capsule (12 sources) Cephalosporin Antibacterial Start: take 1 capsule by mouth three times daily Cephalexin 500 mg capsule Active 500 mg PO THREE TIMES A DAY 15 0 October 18, 2024 12:00am Start: 01-25-2023 End: 05-28-2023 take 1 capsule by mouth three times daily Cephalexin 500 mg capsule Discontinued 500 mg PO THREE TIMES A DAY 21 0 January 25, 2023 1:00am May 28, 2023 10:29am Start: 12-15-2022 End: 12-22-2022 take 1 capsule by mouth twice daily cephALEXin (KEFLEX) 500 mg capsule Indications: Recurrent UTI (urinary tract infection) Take 1 capsule by mouth two times a day for 7 days. 14 capsule 0 12/15/2022 12/22/2022 Active Comment on above: Take 1 capsule by mo [facility] two times a day for 7 days. cholecalciferol, vitamin D3, (VITAMIN D3 PO) (1 source) take 1 tablet by mouth once daily as needed cholecalciferol, vitamin D3, (VITAMIN D3 PO) Take 1 tablet by mouth once daily as needed. Active diphenhydrAMINE hydrochloride 25 mg oral capsule (15 sources) Histamine-1 Receptor Antagonist Start: 015 take 1 capsule by mouth twice daily as needed Diphenhydramine Hcl 25 MG capsule Active 25 mg PO TWICE DAILY NEEDED as needed for Allergies July 18, 2014 12:00am doxycycline monohydrate 100 mg oral tablet (1 source) Tetracycline-class Drug Start: 023 End: 023 take 1 tablet by mouth twice daily doxycycline monohydrate 100 mg tablet Take 1 tablet by mouth twice daily for 5 days. 10 tablet 0 07/15/2022 07/20/2022 Active Comment on above: Take 1 tablet by [facility] twice daily for 5 days. [id number] 0.3 ml EPINEPHrine 1 mg/ml auto-injector (5 sources) alpha-Adrenergic Agonist, beta-Adrenergic Agonist, Catecholamine Start: 025 EPINEPHrine (EPIPEN) 0.3 mg/0.3 mL auto-injector Inject 0.3 mg intramuscularly as needed. 04/22/2024 Active Scooby [place] Long (8 sources) Start: 015 Scooby [place] Long Active 1 EACH PO DAILY April 26, 2014 5:16pm Start: 04-26-2014 Shirley Camarillo.AnimalLong Active 1 EACH PO DAILY April 26, 2014 12:00am Start: 04-26-2014 Thomasrodney,Plan t-B.AnimalLong Active 1 EACH PO DAILY April 26, 2014 1:00am ThomasrodneyPlant-B.Animal,Reinier g 1 EACH capsule (7 sources) Start: 04-26-2014 take 1 capsule by mouth once daily ThomasrodneyPlant-B.AnimalLong 1 EACH capsule Active 1 NMA PO DAILY April 26, 2014 1:00am lutein 20 mg oral capsule (20 sources) Start: 06-10-2022 take 1 capsule by mouth once daily Lutein 20 mg capsule Active 20 mg PO DAILY June 10, 2022 12:00am give with meal/snack Start: 04-26-2014 End: 08-02-2021 take 1 capsule by mouth once daily Lutein Discontinued 1 CAP PO DAILY April 26, 2014 5:16pm August 02, 2021 1:34pm Start: 04-26-2014 take 1 capsule by mo [facility] once daily Lutein Active 1 CAP PO DAILY April 26, 2014 5:16pm Start: 04-26-2014 End: 08-02-2021 Lutein capsule Discontinued 1 NMA PO DAILY April 26, 2014 1:00am August 02, 2021 1:34pm Start: 04-26-2014 End: 08-02-2021 take 1 capsule by mouth once daily Lutein Discontinued 1 CAP PO DAILY April 26, 2014 12:00am August 02, 2021 12:34pm Start: 04-26-2014 End: 08-02-2021 take 1 capsule by mouth once daily Lutein Discontinued 1 CAP PO DAILY April 26, 2014 1:00am August 02, 2021 1:34pm take 1 tablet by brett once daily lutein 10 mg tab Take 1 tablet by mouth once daily. 0 Active Comment on above: Take 1 tablet by brett th once daily. Lutein / zeaxanthin (7 sources) take 10 mg by mouth once daily LUTEIN-ZEAXANTHIN ORAL Take 10 mg by mouth once daily. Active Magnesium (20 sources) take 1-2 tablets by mouth once daily MAGNESIUM ORAL Take 1-2 tablets by mouth once daily. Active MAGNESIUM ORAL T juhi 300 mg by mouth once daily. 1-2 once daily Active take 100 mg by mouth once daily MAGNESIUM ORAL Take 100 mg by mouth once daily. Active take 100 mg by mouth once daily MAGNESIUM ORAL Take 100 mg by mouth once daily. 0 Active Comment on above: Take 100 mg by mouth once daily. magnesium amino acid chelate 100 mg oral tablet (20 sources) Start: 12-09-2022 take 1 tablet by mouth once daily Magnesium Amino Acid Chelate 100 mg tablet Active 100 mg PO DAILY December 09, 2022 8:04am Start: 03-09-2018 End: 12-09-2022 Magnesium Amino Acid Chelate 100 MG tablet Discontinued 200 mg PO DAILY March 09, 2018 1:00am December 09, 2022 8:05am Start: 03-09-2018 End: 12-09-2022 take 200 mg by mouth once daily Magnesium Amino Acid Chelate Discontinued 200 MG PO DAILY March 09, 2018 1:00am December 09, 2022 8:05am nattokinase (20 sources) Start: 12-05-2020 take 1 tablet by brett th once daily Nattokinase tablet Active 2000 mg PO DAILY December 05, 2020 8:21am 1999 FU Start: 12-05-2020 take 2000 mg by mout h once daily Nattokinase Active 2000 MG PO DAILY December 05, 2020 7:21am 1999 FU Start: 12-05-2020 take 2000 mg by mout h once daily Nattokinase Active 2000 MG PO DAILY December 05, 2020 8:21am 1999 FU Start: 04-26-2014 End: 12-05-2020 take 1 tablet by mouth once daily Nattokinase tablet Discontinued 100 mg PO DAILY April 26, 2014 1:00am December 05, 2020 8:21am OTC PRODUCT (20 sources) Start: 04-09-2013 take 1 tablet by brett th twice daily, then take 1 tablet by mouth once daily OTC PRODUCT Take 100 mg by mouth twice daily. Nattokinase 100mg: Take one(1) tablet daily. 0 04/09/2013 Active OTC PRODUCT Mist letoe- r/t [facility] study Active End: 11-11-2023 OTC PRODUCT 250 mg once eliana y. Quercetin 11/11/2023 Discontinued OTC PRODUCT Mist letoe- r/t [facility] study 0 Active OTC PRODUCT 250 mg once daily. Quercetin 0 Active Comment on above: Take 100 mg by mouth twice daily. Nattokinase 100mg: Take one(1) tablet daily. [place]- r/t [facility] study 250 mg once daily. Q uercetin phenylephrine hydrochloride 25 mg/ml ophthalmic solution (2 sources) alpha-1 Adrenergic Agonist Start: 06-16-2024 End: 06-16-2024 PHENYLephrine 2.5 % 1 drop (AK-DILATE, ISREAL-SYNEPHRINE) Start: 06-16-2024 End: 06-16-2024 1 drop, BOTH EYES, DIRECT ED, Starting on Fri06/16/24 at 0800, Until Fri06/16/24 at 1959, Administer for dilation PROTECT FROM LIGHT, OPHT CLINIC MED ORDERS phlebotomies for hemachromat osis (20 sources) Start: 12-09-2022 phlebotomies f or hemachromatosis Active 0 IM .COMPLEX 0 December 09, 2022 8:04am intramuscularly q 3 months; Start: 12-09-2022 phlebotomies f or hemachromatosis Active 0 IM .COMPLEX December 09, 2022 8:04am intramuscularly q 3 months; Start: 12-09-2022 phlebotomies f or hemachromatosis Active 0 IM .COMPLEX December 09, 2022 7:04am intramuscularly q 3 months; Start: 11-11-2019 phlebotomies f or hemachromatosis Active IM November 11, 2019 1:03pm Start: 11-11-2019 End: 12-09-2022 phlebotomies for hemachromat osis Discontinued IM 0 November 11, 2019 12:00am December 09, 2022 8:05am Start: 11-11-2019 End: 12-09-2022 phlebotomies for hemachromat osis Discontinued IM November 11, 2019 12:00am December 09, 2022 8:05am Start: 11-11-2019 End: 12-09-2022 phlebotomies for hemachromat osis Discontinued IM November 10, 2019 11:00pm December 09, 2022 7:05am Start: 11-11-2019 phlebotomies f or hemachromatosis Active IM November 10, 2019 11:00pm Start: 11-11-2019 phlebotomies f or hemachromatosis Active IM November 11, 2019 12:00am proparacaine hydrochloride 5 mg/ml ophthalmic solution (1 source) Local Anesthetic Start: 06-16-2024 End: 06-16-2024 proparacaine 0.5 % 1 drop (ALCAINE) quercetin 500 mg oral capsule (20 sources) Start: 06-30-2024 Quercetin 500 mg capsule Active mg PO June 30, 2024 12:00am On Hold: Conflicting Appointment Start: 06-10-2022 End: 12-09-2022 Quercetin 500 mg capsule Discontinued mg PO June 10, 2022 12:00am December 09, 2022 8:05am Start: 06-10-2022 End: 12-09-2022 Quercetin Discontinued MG PO June 10, 2022 12:00am December 09, 2022 8:05am Start: 06-10-2022 End: 12-09-2022 Quercetin Discontinued MG PO June 09, 2022 11:00pm December 09, 2022 7:05am take 1 tablet by brett th once daily as needed quercetin 500 mg cap Take 1 tablet by mouth once daily as needed. Active [place] Extract-Quercetin (7 sources) Start: 08-02-2021 [place] Extr act-Quercetin Active TABLET PO August 02, 2021 1:35pm Start: 08-02-2021 End: 12-20-2021 [place] Extract-Quercetin Discontinued TABLET PO August 01, 2021 11:00pm December 20, 2021 9:05am Start: 08-02-2021 End: 12-20-2021 [place] Extract-Quercetin Discontinued TABLET PO August 02, 2021 12:00am December 20, 2021 10:05am Start: 08-02-2021 [place] Extr act-Quercetin Active TABLET PO August 02, 2021 12:00am soybean, fermented (NATTOKINASE ORAL) (7 sources) soybean, ferment ed (NATTOKINASE ORAL) Take 1-2 tablets by mouth once daily. 2,000 fu Active tafluprost 0.015 mg/ml ophthalmic solution (5 sources) Prostaglandin Analog Start: 06-16-2024 tafluprost, PF, (ZIOPTAN) 0.0015 % ophthalmic solution dropperette Use 1 drop in eyes daily at bedtime. 30 each 11 06/16/2024 Active Tafluprost (Pf) 0.0015 % dropperette (7 sources) Start: 06-30-2024 Tafluprost (Pf) 0.0015 % dropperette Active 1 NMA OPHTHALMIC AT BEDTIME June 30, 2024 12:00am triamcinolone acetonide 1 mg/ml topical cream (5 sources) Corticosteroid Start: 02-20-2024 triamcinolone acetonide (KENALOG) 0.1 % cream Apply 1 application to affected area once daily. 02/20/2024 Active tropicamide 10 mg/ml ophthalmic solution (2 sources) Anticholinergic Start: 06-16-2024 End: 06-16-2024 tropicamide 1 % 1 drop (MYDRIACYL) Start: 06-16-2024 End: 06-16-2024 1 drop, BOTH EYES, DIRECT ED, Starting on Fri06/16/24 at 0800, Until Fri06/16/24 at 1959, Administer for dilation, OPHT CLINIC MED ORDERS Completed/Discontinued Medications Medication Drug Class(es) Dates Sig (Normalized) Sig (Original) Albuterol Sulfate 1 PUFF inhaler (7 sources) Start: 07-18-2014 End: 06-10-2022 Albuterol Sulfate 1 PUFF inhaler Discontinued 2 NMA INHALATION EVERY 4 HOURS NEEDED as needed for Wheezing July 18, 2014 12:00am June 10, 2022 9:10am amLODIPine 5 mg oral tablet (15 sources) Dihydropyridine Calcium Channel [place] Start: 04-27-2020 End: 08-02-2021 take 1 tablet by mouth once daily Amlodipine 5 mg tablet Discontinued 5 mg PO DAILY April 27, 2020 1:00am August 02, 2021 1:32pm cholecalciferol 0.125 mg oral capsule (20 sources) Vitamin D Start: 12-20-2021 End: 06-30-2024 take 1 capsule by mouth once daily Cholecalciferol (Vitamin D3) 125 mcg (5,000 unit) capsule Discontinued 60569 U PO DAILY December 20, 2021 10:05am June 30, 2024 2:30pm Start: 01-15-2016 End: 05-27-2024 take 1 capsule by mouth once daily Cholecalciferol (Vitamin D3) 5,000 UNIT capsule Discontinued 5000 U PO DAILY March 10, 2016 1:00am December 20, 2021 10:06am Comment on above: Take 1 capsule by [facility] once daily. cholecalciferol, vitamin D3, (VITAMIN D3 ORAL) (1 source) cholecalciferol, vitamin D3, (VITAMIN D3 ORAL) Take 5,000 Int'l Units/day by mouth once daily. Discontinued clindamycin 300 mg oral capsule (13 sources) Lincosamide Antibacterial Start: 11-01-19 22 End: 06-11-19 23 take 1 capsule by mouth every six hours Clindamycin Hcl (Cleocin Hcl) 300 mg capsule Discontinued 300 mg PO EVERY 6 HOURS 28 0 October 31, 2021 12:00am June 10, 2022 9:05am dexamethasone 1.5 mg oral tablet (15 sources) Corticosteroid Start: 03-13-19 17 End: 10-18-19 18 take 2 tablets by mouth three times daily Dexamethasone 1.5 MG tablet Discontinued 3 mg PO THREE TIMES A DAY 180 0 March 13, 2016 1:00am October 17, 2017 7:19am Start: 03-13-2016 End: 10-17-2017 take 3 mg by mouth three times daily Dexamethasone Discontinued 3 MG PO THREE TIMES A DAY 180 March 13, 2016 1:00am October 17, 2017 7:19am Lactobacillus acidophilus (7 sources) End: 10-12-2024 Lactobacillus acidophilus (P ROBIOTIC ORAL) Take by mouth once daily. 10/12/2024 Discontinued Lactobacillus ac idophilus (PROBIOTIC ORAL) Take by mouth once daily. Active [place] Extract-Quercetin 500-250 mg tablet (7 sources) Start: 08-02-2021 End: 12-20-2021 [place] Extract-Quercetin 500-250 mg tablet Discontinued {tbl} PO August 02, 2021 12:00am December 20, 2021 10:05am Turmeric extract (20 sources) Start: 05-28-2021 End: 08-02-2021 Turmeric (Bulk) (Curcumin) 9 5 % powder Discontinued EACH May 28, 2021 9:37am August 02, 2021 1:34pm Start: 05-28-2021 Turmeric (Bulk ) (Curcumin) 95 % powder Active EACH May 28, 2021 9:37am Start: 05-28-2021 End: 08-02-2021 Turmeric (Bulk) (Curcumin) 9 5 % powder Discontinued NMA May 28, 2021 12:00am August 02, 2021 1:34pm Start: 05-28-2021 End: 08-02-2021 Turmeric (Bulk) (Curcumin) 9 5 % powder Discontinued EACH May 27, 2021 11:00pm August 02, 2021 12:34pm Start: 05-28-2021 End: 08-02-2021 Turmeric (Bulk) (Curcumin) 9 5 % powder Discontinued EACH May 28, 2021 12:00am August 02, 2021 1:34pm TURMERIC ORAL Ta ke by mouth. 0 Active Comment on above: Take by mouth. Zinc (15 sources) Start: 05-28-2021 End: 08-02-2021 take 50 mg by mouth once daily Zinc Discontinued 50 MG PO DAILY May 28, 2021 9:36am August 02, 2021 1:34pm Start: 05-28-2021 take 50 mg by mouth once daily Zinc Active 50 MG PO DAILY May 28, 2021 9:36am Start: 05-28-2021 End: 08-02-2021 take 1 tablet by mouth once daily Zinc 50 mg tablet Discontinued 50 mg PO DAILY May 28, 2021 12:00am August 02, 2021 1:34pm Start: 05-28-2021 End: 08-02-2021 take 50 mg by mouth once daily Zinc Discontinued 50 MG PO DAILY May 27, 2021 11:00pm August 02, 2021 12:34pm Start: 05-28-2021 End: 08-02-2021 take 50 mg by mouth once daily Zinc Discontinued 50 MG PO DAILY May 28, 2021 12:00am August 02, 2021 1:34pm Problems Active Problems Problem Classification Problem Date Documented Da te Episodic/Chronic Abdominal pain (10 sources) Upper abdominal pain; Translations: [Upper abdominal pain, unspecified] 01-28-2022 Episodic Acute bronchitis (15 sources) Acute bronchitis; Translations: [Acute bronchitis, unspecified] 03-12-2018 Episodic Acute cerebrovascular disease (2 sources) Silent cerebral infarct; Translations: [Cerebral infarction, unspecified] Onset: 5 04-19-2024 Chronic Allergic reactions (20 sources) Acute urticaria; Translations: [Other urticaria] Onset: 8 03-25-2007 Episodic Anxiety disorders (20 sources) Anxiety state; Translations: [Generalized anxiety disorder] Onset: 5 02-22-2015 Chronic Asthma (20 sources) Asthma; Translations: [Unspecified asthma, uncomplicated] Onset: 8 01-15-2016 Chronic Biliary tract disease (15 sources) Gallstone; Translations: [Calculus of gallbladder without cholecystitis without obstruction] 11-11-2019 Episodic Blindness and vision defects (17 sources) Eye / vision finding; Translations: [Unspecified visual disturbance] 03-12-2018 Episodic Cancer of breast (20 sources) Intraductal carcinoma in situ of breast; Translations: [Intraductal carcinoma in situ of unspecified breast] Onset: Chronic Cancer of breast (2 sources) History of ductal carcinoma in situ of breast; Translations: [Personal history of in-situ neoplasm of breast] Episodic Cataract (16 sources) Cataract; Translations: [Unspecified cataract] 11-11-2019 Chronic Disorders of lipid metabolism (1 source) Hypercholesterolemia; Translations: [Pure hypercholesterolemia, unspecified] 09-25-2023 Chronic Esophageal disorders (20 sources) Gastroesophageal reflux disease; Translations: [Gastro-esophageal reflux disease without esophagitis] Onset: 5 Chronic Genitourinary symptoms and ill-defined conditions (20 sources) Nocturia; Translations: [Nocturia] Onset: 5 Resolved: 2 05-09-2010 Episodic Glaucoma (20 sources) Glaucoma; Translations: [Unspecified glaucoma] Onset: 5 03-12-2018 Chronic Headache; including migraine (15 sources) Headache; Translations: [Left-sided headache] 03-12-2018 Episodic Comment on above: patient with episode of few minutes of blacked out vision Left eye 03/09/2016 which brought her to ER. Since this time she has had 2 further episodes of decrased vision OS. the last one was yesterday in which ptient claims lasted 1.5 hours Heart valve disorders (9 sources) Aortic valve stenosis; Translations: [Nonrheumatic aortic (valve) stenosis] 05-28-2023 Chronic Immunizations and screening for infectious disease (16 sources) Suspected disease caused by 2019-nCoV; Translations: [Suspected COVID-19 virus infection] Episodic Menopausal disorders (20 sources) Atrophic vaginitis; Translations: [Postmenopausal atrophic vaginitis] Onset: 5 10-21-2005 Chronic Miscellaneous mental health disorders (1 source) Anxiety about body function or health; Translations: [Other symptoms and signs involving emotional state] 09-25-2023 Episodic Nutritional deficiencies (20 sources) Vitamin D deficiency; Translations: [Vitamin D deficiency, unspecified] Onset: 1 Chronic Occlusion or stenosis of precerebral arteries (8 sources) Carotid artery stenosis; Translations: [Occlusion and stenosis of unspecified carotid artery] 06-06-2023 Chronic Open wounds of extremities (7 sources) Tear of skin; Translations: [Laceration without foreign body of right forearm, initial encounter] 11-21-2023 Episodic Osteoarthritis (16 sources) Arthritis; Translations: [Unspecified osteoarthritis, unspecified site] 11-11-2019 Chronic Other acquired deformities (7 sources) Scoliosis deformity of spine; Translations: [Scoliosis, unspecified] 02-11-2024 Chronic Other bone disease and musculoskeletal deformities (15 sources) Osteopenia; Translations: [Other specified disorders of bone density and structure, unspecified site] 11-11-2019 Episodic Other bone disease and musculoskeletal deformities (14 sources) Postmenopausal osteopenia; Translations: [Other specified disorders of bone density and structure, unspecified site] 08-02-2021 Episodic Other bone disease and musculoskeletal deformities (7 sources) Other specified disorders of bone density and structure, unspecified site; Translations: [Disorder of bone and cartilage, unspecified] Episodic Other circulatory disease (2 sources) History of cerebrovascular accident; Translations: [Personal history of transient ischemic attack (TIA), and cerebral infarction without residual deficits] 09-25-2023 Episodic Other connective tissue disease (15 sources) Polymyalgia rheumatica; Translations: [Polymyalgia rheumatica] 03-12-2018 Chronic Other gastrointestinal disorders (14 sources) Stool finding; Translations: [Other fecal abnormalities] 08-02-2021 Episodic Other gastrointestinal disorders (2 sources) Other fecal abnormalities; Translations: [Nonspecific abnormal findings in stool contents] Episodic Other gastrointestinal disorders (2 sources) Functional disorder of gastrointestinal tract; Translations: [Disease of digestive system, unspecified] 04-20-2024 Episodic Other hematologic conditions (3 sources) Secondary polycythemia; Translations: [Secondary polycythemia] Episodic Other hereditary and degenerative nervous system conditions (2 sources) Impaired cognition; Translations: [Mild cognitive impairment, so stated] 09-25-2023 Chronic Other hereditary and degenerative nervous system conditions (1 source) Mild cognitive impairment, so stated; Translations: [Mild cognitive impairment] Onset: 5 Chronic Other inflammatory condition of skin (20 sources) Psoriasis; Translations: [Psoriasis, unspecified] Onset: 6 10-21-2005 Chronic Other inflammatory condition of skin (2 sources) Psoriasis, unspecified; Translations: [Other psoriasis] Chronic Other lower respiratory disease (15 sources) H/O: pneumonia; Translations: [Personal history of pneumonia (recurrent)] 11-11-2019 Episodic Other lower respiratory disease (10 sources) Rib pain; Translations: [Pleurodynia] 01-28-2022 Episodic Other nervous system disorders (15 sources) Neuropathy; Translations: [Polyneuropathy, unspecified] 11-11-2019 Chronic Other nervous system disorders (4 sources) Polyneuropathy, unspecified; Translations: [Mononeuritis of unspecified site] Chronic Other nervous system disorders (16 sources) Impaired cognition; Translations: [Other symptoms and signs involving cognitive functions and awareness] 05-28-2023 Episodic Other nervous system disorders (2 sources) Other symptoms and signs involving cognitive functions and awareness; Translations: [Other signs and symptoms involving cognition] 05-28-2023 Episodic Other non-traumatic joint disorders (5 sources) Pain in right knee; Translations: [Arthralgia of right knee] 09-12-2024 Episodic Other non-traumatic joint disorders (6 sources) Pain in left knee; Translations: [Left knee pain] 09-15-2024 Episodic Other nutritional; endocrine; and metabolic disorders (20 sources) Hemochromatosis; Translations: [Hemochromatosis, unspecified] Onset: 5 Resolved: 7 03-12-2018 Chronic Other nutritional; endocrine; and metabolic disorders (6 sources) Hemochromatosis, unspecified; Translations: [Other hemochromatosis] Onset: 5 Chronic Other nutritional; endocrine; and metabolic disorders (20 sources) Disorder of iron metabolism; Translations: [Disorders of iron metabolism] Onset: 5 Resolved: 7 06-24-2005 Chronic Other nutritional; endocrine; and metabolic disorders (20 sources) Hereditary hemochromatosis; Translations: [Hereditary hemochromatosis] Onset: 7 07-05-2016 Chronic Other nutritional; endocrine; and metabolic disorders (1 source) Hypervitaminosis D; Translations: [Hypervitaminosis D] 05-27-2024 Chronic Other nutritional; endocrine; and metabolic disorders (1 source) Disorder of iron metabolism, unspecified; Translations: [Disorder of iron metabolism] Onset: 0 Chronic Other nutritional; endocrine; and metabolic disorders (2 sources) Hereditary hemochromatosis; Translations: [Hereditary hemochromatosis] Onset: 7 Chronic Other nutritional; endocrine; and metabolic disorders (1 source) Metabolic disease; Translations: [Other symptoms and signs concerning food and fluid intake] 05-27-2024 Episodic Other nutritional; endocrine; and metabolic disorders (7 sources) H/O: thyroid disorder; Translations: [Personal history of other endocrine, nutritional and metabolic disease] 11-13-2023 Episodic Other upper respiratory disease (20 sources) Allergic rhinitis; Translations: [Allergic rhinitis, unspecified] Onset: 5 06-24-2005 Chronic Other upper respiratory disease (15 sources) Seasonal allergic rhinitis; Translations: [Other seasonal allergic rhinitis] 03-12-2018 Chronic Other upper respiratory disease (2 sources) Allergic rhinitis, unspecified; Translations: [Allergic rhinitis, cause unspecified] Chronic Other upper respiratory disease (2 sources) Other seasonal allergic rhinitis; Translations: [Allergic rhinitis, cause unspecified] Chronic Other upper respiratory disease (1 source) Throat irritation; Translations: [Other diseases of pharynx] 10-28-2022 Episodic Other upper respiratory disease (8 sources) Nasal congestion; Translations: [Nasal congestion] 09-12-2024 Episodic Other upper respiratory infections (18 sources) Upper respiratory infection; Translations: [Acute upper respiratory infection, unspecified] Onset: Episodic Residual codes; unclassified (17 sources) Other specified health status; Translations: [Consumes a vegan diet] 11-11-2019 Episodic Residual codes; unclassified (18 sources) Contact with and (suspected) exposure to mold (toxic); Translations: [Exposure to mold] Episodic Residual codes; unclassified (2 sources) Memory impairment; Translations: [Other amnesia] 08-15-2023 Episodic Residual codes; unclassified (2 sources) Forgetful; Translations: [Other general symptoms and signs] 08-15-2023 Episodic Retinal detachments; defects; vascular occlusion; and retinopathy (20 sources) Degenerative disorder of macula ; Translations: [Unspecified macular degeneration] Onset: 5 Chronic Skin and subcutaneous tissue infections (13 sources) Cellulitis of face; Translations: [Cellulitis of face] 11-08-2021 Episodic Systemic lupus erythematosus and connective tissue disorders (15 sources) Temporal arteritis; Translations: [Other giant cell arteritis] 11-11-2019 Chronic Thyroid disorders (16 sources) Thyroid nodule; Translations: [Nontoxic single thyroid nodule] Onset: 4 11-11-2019 Chronic Comment on above: 3, benign Unclassified (6 sources) Z78.9 - Other specified health status,T78.1XXA - Other adverse food reactions, not elsewhere classified, initial encounter Unclassified (5 sources) Consumes a vegan diet Unclassified (5 sources) Pollen-food allergy Urinary tract infections (2 sources) Recurrent urinary tract infection; Translations: [Urinary tract infection, site not specified] 12-15-2022 Episodic Past or Other Problems Problem Classification Problem Date Documented Da te Episodic/Chronic Gastrointestinal hemorrhage (20 sources) Hematochezia; Translations: [Melena] Onset: 6 10-21-2005 Episodic Other bone disease and musculoskeletal deformities (20 sources) Disorder of skeletal system; Translations: [Disorder of bone, unspecified] Onset: 6 10-21-2005 Episodic Other circulatory disease (20 sources) Feeling of lump in throat; Translations: [Other specified symptoms and signs involving the circulatory and respiratory systems] Onset: 7 11-06-2016 Episodic Other connective tissue disease (20 sources) History of polymyalgia rheumatica; Translations: [Personal history of other diseases of the musculoskeletal system and connective tissue] Onset: 8 02-12-2018 Episodic Other gastrointestinal disorders (1 source) Disease of digestive system, unspecified; Translations: [Functional gastrointestinal disorder] Onset: 5 Episodic Other nutritional; endocrine; and metabolic disorders (1 source) Personal history of other endocrine, nutritional and metabolic disease; Translations: [Personal history of other endocrine, nutritional and metabolic disease] Onset: 4 Episodic Other screening for suspected conditions (not mental disorders or infectious disease) (7 sources) Patient encounter status; Translations: [Encounter for other screening for malignant neoplasm of breast] Onset: 4 10-25-2022 Episodic Results Test Name Value Interpretation Reference Range Facility Urine Cultureon 10-20-2024 [facility] Escherichia coli [place] Count 11,000-25,000 Escherichia coli: REACTION Ampicillin Islt TOMASA 4 Ampicillin+Sulbac Islt TOMASA <=2 S Cefepime Islt TOMASA <=0.12 S cefTRIAXone Islt TOMASA <=0.25 S Ciprofloxacin Islt TOMASA <=0.06 S B-Lactamase Extended Susc Islt NEG Gentamicin Islt TOMASA <=1 S levoFLOXacin Islt TOMASA <=0.12 S Meropenem Islt TOMASA <=0.25 S Nitrofurantoin Islt TOMASA <=16 S Pip+Tazo Islt TOMASA <=4 S TMP SMX Islt TOMASA <=20 S Normal [facility] Comment on above: Performed By: #### L 3100.3425, L100.0100, L500.4050, L300.3900, L503.5510 #### [facility] [address] [place], [place], [id number] Urgent Care Visit Reporton 0 10-18-2024 Urgent Care Visit Report [facility] [address], [address] [place], [place] [address] OFFICE VISIT Date of Service: 10/18/24 MR#: [id number] Acct: [id number] Name: EDER SEVERINO Rep #: [id number] : 1945 Provider: DEREK Cha Age/Sex: 79/F Location: [facility] [place] Status: Signed Intake Vital Signs 09/15/24 09:52 10/18/24 06:41 Height 5 ft 5 in 5 ft 5 in Weight: 149 lb 152 lb BMI 24.7 25.2 BP 180/71 H 148/72 H Blood Pressure Location Lt brachial Lt brachial Position Sitting Sitting Respiration 16 Pulse 63 69 Pulse Source Monitor Temp 98.2 F 97.5 F L Temp Source Temporal Oral Pulse Oximetry (%) 96 98 Oxygen Delivery Method room air room air Intake Visit Reasons: CONCERN FOR UTI Chief Complaint: UTI Accompanied by: Allergies aspirin Allergy (Mild, Verified 10/18/24 06:40) unknown calcium carbonate (From Tums) Allergy (Mild, Verified 10/18/24 06:40) Other estradiol (From Vagifem) Allergy (Mild, Verified 10/18/24 06:40) unknown latanoprost (From Xalatan) Allergy (Mild, Verified 10/18/24 06:40) unknown miconazole (From Monistat 3) Allergy (Mild, Verified 10/18/24 06:40) burining, headache, nausea phenazopyridine Allergy (Mild, Verified 10/18/24 06:40) Other propoxyphene (From Darvon) Allergy (Mild, Verified 10/18/24 06:40) Other ranitidine (From Zantac) Allergy (Mild, Verified 10/18/24 06:40) unknown skin cleanser combination no.17 (From Monistat 3) Allergy (Mild, Verified 10/18/24 06:40) burining, headache, nausea tioconazole (From Monistat 1 (tioconazole)) Allergy (Mild, Verified 10/18/24 06:40) burning, headache, nausea amoxicillin Allergy (Verified 10/18/24 06:40) Anaphylaxis ibuprofen (From Advil) Allergy (Verified 10/18/24 06:40) Other indomethacin (From Indocin) Allergy (Verified 10/18/24 06:40) Anaphylaxis indomethacin sodium (From Indocin) Allergy (Verified 10/18/24 06:40) Anaphylaxis prednisolone Allergy (Verified 10/18/24 06:40) Swelling Sulfa (Sulfonamide Antibiotics) Allergy (Verified 10/18/24 06:40) Anaphylaxis barium sulfate Adverse Reaction (Verified 10/18/24 06:40) Rash nitrofurantoin macrocrystalline (From Macrodantin) Adverse Reaction (Verified 10/18/24 06:40) Other prednisone Adverse Reaction (Verified 10/18/24 06:40) Other progesterone Adverse Reaction (Verified 10/18/24 06:40) Other propoxyphene HCl (From Darvon) Adverse Reaction (Verified 10/18/24 06:40) Other Medications ???Medication ???Instructions ???Recorded ???Confirmed ???Type L.acidophilus-L.plantar um-B.animalis-B.longum 1 ea PO DAILY 5 10/18/24 History 2 billion cell capsule diphenhydramine HCl 25 mg capsule 25 mg PO BID PRN PRN Allergies 10/18/24 History biotin 1 mg capsule 2,500 mcg PO QDAY 10/17/17 5 History Nattokinase 2,000 mg PO DAILY 12/05/20 5 History lutein 20 mg capsule 20 mg PO DAILY 06/10/22 10/18/24 H istory magnesium amino acid chelate 100 100 mg PO DAILY 12/09/22 10/18/24 History mg tablet phlebotomies for hemachromatosis See Rx Instructions IM .COMPLEX 10/18/24 History albuterol sulfate 90 mcg/actuation 2 puff inhalation Q4H PRN PRN 10/18/24 Rx aerosol inhaler Wheezing #8.5 grams quercetin 500 mg capsule mg PO 06/30/24 10/18/24 History Held on 09/12/24. Instructions: Conflicting Appointment tafluprost (PF) 0.0015 % eye drops 1 drp ophthalmic (eye) QHS 06/3010/18/24 History in a dropperette azithromycin 250 mg tablet 250 mg PO .COMPLEX #12 tabs 10/18/24 Rx Have you fallen in the past year?: No Nurse's Note: Burning with urination, frequency, urgency. X 4 or 5 days. Tried E[facility] Medical History (Updated 09/20/24 @ 00:00 by Background Artemio) Left knee pain History of thyroid nodule Secondary polycythemia Oral allergy syndrome Upper respiratory infection Suspected COVID-19 virus infection Neuropathy Hives Temporal arteritis Ductal carcinoma in situ (DCIS) of breast Gallstones Thyroid nodule History of pneumonia as a child GERD (gastroesophageal reflux disease) Vegan diet Arthritis Acute urticaria Osteopenia Macular degeneration Hemochromatosis Glaucoma Cataract Asthma Allergic rhinitis Acid reflux Surgical History H/O laparoscopy History of lumpectomy of left breast History of cataract surgery History of cholecystectomy Family History Sister Breast cancer Mother Diabetes Myocardial infarction, Onset Age: 69 Arthritis Liver disease Osteoporosis Father Myocardial infarction, Onset Age: 75 Brother Myocardial infarction, Onset Age: 44 Parkinsons Other Cancer Social History (R (more content not included)... Normal [facility] Urine cultureOrdered By: Noah Lawrence on 10-18-2024 Bacteria identified Cx Nom (U) Escherichia coli Abnormal [facility] CNOVSPon 10-12-2024 CNOVSP Visit (SP) Office (HEMAWS) EDER SEVERINO ([id number]) 1945 F Date Time Provider Department 10/12/24 8:30 AM LUIS RON During your visit today, we recorded the following information about you: Temperature Pulse Blood pressure Weight 98 degrees 73/minute 176/76 70.3 kg Luis Ron DO 10/12/2024 8:55 AM Signed DIAGNOSIS: 1) 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 2) DCIS. HPI: Mrs. Severino is a 79-year-old female diagnosed with hemochromatosis. She was diagnosed with temporal arteritis in 2016. She completed a 6 month course of tapering prednisone. She underwent EGD in the fall 2016 that demonstrated multiple duodenal ulcers. Had an abnormal screening mammogram 01/23/2018. There were indeterminate multiple calcifications in the left breast. Subsequent diagnostic left mammogram on 02/04/2018 revealed grouped fine pleomorphic calcifications in the left breast at the 12:00 middle depth. She underwent stereotactic core biopsy on 02/16/2018. Pathology: DCIS, grade 3. Estrogen receptors were positive (greater than 95%, strong) ND positive (greater than 95%, moderate and HER-2 3+. She underwent left breast lumpectomy on 03/12/2018. Final pathology demonstrated DCIS, grade 3 measuring 2 x 1 x 1 mm. Margin was negative. Closest margin was 5 mm from the anterior margin. Presents for ongoing hematologic management. Interim history: Continue the use of nattokinase. Has really helped maintain flow for phlebotomy. Subcutaneous mistletoe injections for history of DCIS. She continues to tolerate phlebotomy well. Appetite normal. No abdominal pain or specifically no right upper quadrant pain. Mild cognitive impairment. Working with PCP. Home SBPs-110s to 138 (that was after coffee). PMH, medications and allergies personally reviewed by me today. Any changes documented in appropriate section. ROS: The 10 system review is otherwise negative. PHYSICAL EXAM: Vitals: Blood pressure 176/76, pulse 73, temperature 36.7 ?C (98 ?F), temperature source Temporal, weight 70.3 kg (155 lb), SpO2 100%. Well-appearing and in no acute distress. EYES: Sclerae are anicteric bilaterally. LYMPHATIC: There is no palpable cervical, supraclavicular adenopathy. RESPIRATORY: Normal passive respirations. CARDIOVASCULAR: Rhythm is regular. ABDOMEN: The abdomen is nondistended. Extremities: No swelling or edema. SKIN: No jaundice. ASSESSMENT/PLAN: (E83.110) Hereditary hemochromatosis (HCC) (primary encounter diagnosis) Assessment: -Maintaining ferritin under 50 ng/mL with phlebotomy every 3 months. -Tolerating phlebotomy well. -Reviewed lab work with her. Mild increase in RBC number. Previous MPN panel negative. -White coat HTN. Home BPs consistently 120s/60s. -Discussed and answered questions she and her had. Discussed overall clinical course, rationale for phlebotomy, etc. Plan: -Phlebotomy q 3 months. Okay for today. -OV/CBC/iron studies/CMP/AFP in about a year. -She will continue following with her PCP for her other health care needs. 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 -At this time, she declines further mammogram. Plan: -Encouraged self breast exams and will plan annual breast exam. Portions of this documentation were copied and pasted from my previous office visit note dated 11/11/2023 in order to provide a cohesive continuity of the history. The note has been reviewed and edited and updated as necessary. I spent a total of 30 minutes on the date of the service which included preparing to see the patient, [id number] patient care, completing clinical documentation, obtaining and/or reviewing separately obtained history, performing a medically appropriate examination, counseling and educating the patient/family/caregive r, communicating with other HCPs (not separately reported), and communicating results to the patient/family/caregive r. Luis Ron, DO Allergies As of Date: 10/12/2024 Noted Allergy Reaction SULFA (SULFONAMIDE ANTIBIOTICS) 11/22/2004 10 - Anaphylaxis SUNFLOWER SEED 12/21/2022 2 - Rash ADVIL (IBUPROFEN) 11/22/2004 5 - Intolerance Comments: along with any non-steroidal anti- inflammatory AMOXICILLIN 11/22/2004 5 - Intolerance ASPIRIN 07/13/2008 Comments: skin reaction- redness and burning BARIUM IODIDE 11/22/2004 2 - Rash BARIUM SULFATE 12/09/2022 2 - Rash DARVON (PROPOXYPHENE HCL) 11/22/2004 1 - Mental Status Change Comments: blacked out with postural changes INDOCIN (INDOMETHACIN SODIUM) 11/22/2004 5 - Intolerance MACRODANTIN (NITROFURANTOIN) 11/22/2004 Comments: neuropathy MONISTAT 1 (TIOCONAZOLE) 11/22/2004 Comments: headache and vaginal burning MONISTAT 3 (MICONAZOLE) 02/04/2005 5 - In (more content not included)... Normal [facility] AFP SerPl-mCncon 10-11-2024 AFP [Mass/Vol] 3.91 ng/mL Normal <9.00 [facility] Comment on above: Order Comment: Speci men Type: BLOOD SPECIMENOrdering Facility: [facility] Address: [address] [place] [address] Result Comment: The Alpha-Fetoprotein test was performed using the Sondra Unicel DxI immunoenzymatic assay. Results obtained with different assay methods or kits cannot be used interchangeably. Performed By: #### 1 834-1 ####[facility] LABCLIA [id number] [place] [address] [place] CBC W Auto Differential pane l (Bld)on 10-11-2024 Basophils (Bld) [#/Vol] 0.07 10*3/uL Normal <0.11 [facility] Comment on above: Order Comment: Speci men Type: BLOOD SPECIMENOrdering Facility: [facility] Address: [address] [place] [address] Performed By: #### 5 7021-8 ####[facility] MILLWIDLIA [id number] [place] [address] [place] Basophils/100 WBC (Bld) 1.3 % Normal [facility] Comment on above: Order Comment: Speci men Type: BLOOD SPECIMENOrdering Facility: [facility] Address: [address] [place] [address] Performed By: #### 5 7021-8 ####[facility] [id number] [place] [address] [place] Differential cell count method Nom (Bld) Auto Normal [facility] Comment on above: Order Comment: Speci men Type: BLOOD SPECIMENOrdering Facility: [facility] Address: [address] [place] [address] Performed By: #### 5 7021-8 ####[facility] [id number] [place] [address] [place] Eosinophils (Bld) [#/Vol] 0.10 10*3/uL Normal <0.46 [facility] Comment on above: Order Comment: Speci men Type: BLOOD SPECIMENOrdering Facility: [facility] Address: [address] [place] [address] Performed By: #### 5 7021-8 ####[facility] [id number] [place] [address] [place] Eosinophils/100 WBC (Bld) 1.9 % Normal [facility] Comment on above: Order Comment: Speci men Type: BLOOD SPECIMENOrdering Facility: [facility] Address: [address] [place] [address] Performed By: #### 5 7021-8 ####[facility] AVELINAWNCLIA [id number] [place] [address] [place] Erythrocyte distribution width (RBC) [Ratio] 12.8 % Normal 11.5-15.0 [facility] Comment on above: Order Comment: Speci men Type: BLOOD SPECIMENOrdering Facility: [facility] Address: [address] [place] [address] Performed By: #### 5 7021-8 ####[facility]ITALNCLIA [id number] [place] [address] [place] Hematocrit (Bld) [Volume fraction] 42.1 % Normal 36.0-46.0 [facility] Comment on above: Order Comment: Speci men Type: BLOOD SPECIMENOrdering Facility: [facility] Address: [address] [place] [address] Performed By: #### 5 7021-8 ####[facility]ITALNCLIA [id number] [place] [address] [place] Hemoglobin (Bld) [Mass/Vol] 14.4 g/dL Normal 11.5-15.5 [facility] Comment on above: Order Comment: Speci men Type: BLOOD SPECIMENOrdering Facility: [facility] Address: [address] [place] [address] Performed By: #### 5 7021-8 ####[facility] HOSPITALWDIMITRISLIA [id number] [place] [address] [place] Immature granulocytes (Bld) [#/Vol] 10*3/uL Normal <0.10 [facility] Comment on above: Order Comment: Speci men Type: BLOOD SPECIMENOrdering Facility: [facility] Address: [address] [place] [address] Performed By: #### 5 7021-8 ####[facility] CENTERLIA [id number] [place] [address] [place] Immature granulocytes/100 WBC (Bld) 0.2 % Normal [facility] Comment on above: Order Comment: Speci men Type: BLOOD SPECIMENOrdering Facility: [facility] Address: [address] [place] [address] Performed By: #### 5 7021-8 ####[facility] [id number] [place] [address] [place] Lymphocytes (Bld) [#/Vol] 1.38 10*3/uL Normal 1.00-4.00 [facility] Comment on above: Order Comment: Speci men Type: BLOOD SPECIMENOrdering Facility: [facility] Address: [address] [place] [address] Performed By: #### 5 7021-8 ####[facility] [id number] [place] [address] [place] Lymphocytes/100 WBC (Bld) 25.8 % Normal [facility] Comment on above: Order Comment: Speci men Type: BLOOD SPECIMENOrdering Facility: [facility] Address: [address] [place] [address] Performed By: #### 5 7021-8 ####[facility] [id number] [place] [address] [place] MCH (RBC) [Entitic mass] 29.4 pg Normal 26.0-34.0 [facility] Comment on above: Order Comment: Speci men Type: BLOOD SPECIMENOrdering Facility: [facility] Address: [address] [place] [address] Performed By: #### 5 7021-8 ####[facility] [id number] [place] [address] [place] MCHC (RBC) [Mass/Vol] 34.2 g/dL Normal 30.5-36.0 [facility] Comment on above: Order Comment: Speci men Type: BLOOD SPECIMENOrdering Facility: [facility] Address: [address] [place] [address] Performed By: #### 5 7021-8 ####[facility] HOSPITALNCSHRINERS HOSPITALS FOR CHILDREN [id number] [place] [address] [place] MCV (RBC) [Entitic vol] 85.9 fL Normal 80.0-100.0 C [facility] Comment on above: Order Comment: Speci men Type: BLOOD SPECIMENOrdering Facility: [facility] Address: [address] [place] [address] Performed By: #### 5 7021-8 ####[facility] HOSPITALNCSHRINERS HOSPITALS FOR CHILDREN [id number] [place] [address] [place] Monocytes (Bld) [#/Vol] 0.33 10*3/uL Normal <0.87 [facility] Comment on above: Order Comment: Speci men Type: BLOOD SPECIMENOrdering Facility: [facility] Address: [address] [place] [address] Performed By: #### 5 7021-8 ####[facility] HOSPITALNCA [id number] [place] [address] [place] Monocytes/100 WBC (Bld) 6.2 % Normal C [facility] Comment on above: Order Comment: Speci men Type: BLOOD SPECIMENOrdering Facility: [facility] Address: [address] [place] [address] Performed By: #### 5 7021-8 ####[facility] HOSPITALNCLIA [id number] [place] [address] [place] Neutrophils (Bld) [#/Vol] 3.45 10*3/uL Normal 1.45-7.50 [facility] Comment on above: Order Comment: Speci men Type: BLOOD SPECIMENOrdering Facility: [facility] Address: [address] [place] [address] Performed By: #### 5 7021-8 ####[facility] AVELINAASHLANDDIMITRISLIA [id number] [address] STATES [facility] Neutrophils/100 WBC (Bld) 64.6 % Normal [facility] Comment on above: Order Comment: Speci men Type: BLOOD SPECIMENOrdering Facility: [facility] Address: [address] [place] [address] Performed By: #### 5 7021-8 ####[facility] HOSPITALNCLIA [id number] [place] [address] [place] Nucleated RBC (Bld) [#/Vol] 10*3/uL Normal <0.01 [facility] Comment on above: Order Comment: Speci men Type: BLOOD SPECIMENOrdering Facility: [facility] Address: [address] [place] [address] Performed By: #### 5 7021-8 ####[facility] HOSPITALNCLIA [id number] [place] [address] [place] Nucleated RBC/100 WBC (Bld) [Ratio] 0.0 /100 WBC Normal [facility] Comment on above: Order Comment: Speci men Type: BLOOD SPECIMENOrdering Facility: [facility] Address: [address] [place] [address] Performed By: #### 5 7021-8 ####[facility] CENTERLIA [id number] [place] [address] [place] Platelet mean volume (Bld) [Entitic vol] 9.2 fL Normal 9.0-12.7 [facility] Comment on above: Order Comment: Speci men Type: BLOOD SPECIMENOrdering Facility: [facility] Address: [address] [place] [address] Performed By: #### 5 7021-8 ####[facility] CENTERLIA [id number] [place] [address] [place] Platelets (Bld) [#/Vol] 198 10*3/uL Normal 150-400 [facility] Comment on above: Order Comment: Speci men Type: BLOOD SPECIMENOrdering Facility: [facility] Address: [address] [place] [address] Performed By: #### 5 7021-8 ####[facility] HOSPITALNCYAZMIN [id number] [place] [address] [place] RBC (Bld) [#/Vol] 4.90 10*6/uL Normal 3.90-5.20 [facility] Comment on above: Order Comment: Speci men Type: BLOOD SPECIMENOrdering Facility: [facility] Address: [address] [place] [address] Performed By: #### 5 7021-8 ####[facility] HOSPITALMACK [id number] [place] [address] [place] WBC (Bld) [#/Vol] 5.34 10*3/uL Normal 3.70-11.00 [facility] Comment on above: Order Comment: Speci men Type: BLOOD SPECIMENOrdering Facility: [facility] Address: [address] [place] [address] Performed By: #### 5 7021-8 ####[facility] HOSPITALDIMITRISLIA [id number] [place] [address] [place] Comprehensive metabolic 2000 panelon 10-11-2024 Albumin [Mass/Vol] 4.1 g/dL Normal 3.9-4.9 [facility] Comment on above: Order Comment: Speci men Type: BLOOD SPECIMENOrdering Facility: [facility] Address: [address] [place] [address] Performed By: #### 2 4323-8 ####[facility] HOSPITALDarleneNCLISydnee [id number] [place] [address] [place] ALP [Catalytic activity/Vol] 66 U/L Normal 34-123 [facility] Comment on above: Order Comment: Speci men Type: BLOOD SPECIMENOrdering Facility: [facility] Address: [address] [place] [address] Performed By: #### 2 4323-8 #### [facility] MILLTOWNCLIA [id number] [place] [address] [place] ALT [Catalytic activity/Vol] 8 U/L Normal 7-38 [facility] Comment on above: Order Comment: Speci men Type: BLOOD SPECIMENOrdering Facility: [facility] Address: [address] [place] [address] Performed By: #### 2 4323-8 ####[facility] HOSPITALWNCLIA [id number] [place] [address] [place] Anion gap [Moles/Vol] 12 mmol/L Normal 8-15 [facility] Comment on above: Order Comment: Speci men Type: BLOOD SPECIMENOrdering Facility: [facility] Address: [address] [place] [address] Performed By: #### 2 4323-8 ####[facility] MILLWNCLIA [id number] [place] [address] [place] AST [Catalytic activity/Vol] 14 U/L Normal 13-35 [facility] Comment on above: Order Comment: Speci men Type: BLOOD SPECIMENOrdering Facility: [facility] Address: [address] [place] [address] Performed By: #### 2 4323-8 ####[facility] MILLASHLANDNCLIA [id number] [place] [address] [place] Bilirubin [Mass/Vol] 0.6 mg/dL Normal 0.2-1.3 [place] Comment on above: Order Comment: Speci men Type: BLOOD SPECIMENOrdering Facility: [facility] Address: [address] [place] [address] Performed By: #### 2 4323-8 #### [facility] MILLTOWNCLIA [id number] [place] [address] [place] Calcium [Mass/Vol] 9.7 mg/dL Normal 8.5-10.2 [facility] Comment on above: Order Comment: Speci men Type: BLOOD SPECIMENOrdering Facility: [facility] Address: [address] [place] [address] Performed By: #### 2 4323-8 ####[facility] MILLTOWNCLIA [id number] [place] [address] [place] Chloride [Moles/Vol] 102 mmol/L Normal 98-107 [place] Comment on above: Order Comment: Speci men Type: BLOOD SPECIMENOrdering Facility: [facility] Address: [address] [place] [address] Performed By: #### 2 4323-8 ####[facility] MILLWNCLIA [id number] [place] [address] [place] CO2 [Moles/Vol] 23 mmol/L Normal 22-30 [facility] Comment on above: Order Comment: Speci men Type: BLOOD SPECIMENOrdering Facility: [facility] Address: [address] [place] [address] Performed By: #### 2 4323-8 #### [facility] MILLTOWNCLIA [id number] [place] [address] [place] Creatinine [Mass/Vol] 0.65 mg/dL Normal 0.58-0.96 [facility] Comment on above: Order Comment: Speci men Type: BLOOD SPECIMENOrdering Facility: [facility] Address: [address] [place] [address] Performed By: #### 2 4323-8 ####[facility] MILLTOWNCLIA [id number] [place] [address] [place] eGFRcr SerPlBld CKD-EPI 2020 89 mL/min/1.73m??? Normal >=60 [facility] Comment on above: Order Comment: Bre richards Type: BLOOD SPECIMENOrdering Facility: [facility] Address: [address] [place] [address] Result Comment: Sara mated Glomerular Filtration Rate (eGFR) is calculated using the 2020 CKD-EPI creatinine equation. This equation utilizes serum creatinine, sex, and age as parameters. The creatinine assay has traceable calibration to isotope dilution-mass spectrometry. Refer to KDIGO guidelines for clinical interpretation. In patients with unstable renal function, e.g. those with acute kidney injury, the eGFR may not accurately reflect actual GFR. Performed By: #### 2 4323-8 ####[facility] [id number] [place] [address] [place] Glucose [Mass/Vol] 124 mg/dL High 74-99 [facility] Comment on above: Order Comment: Bre richards Type: BLOOD SPECIMENOrdering Facility: [facility] Address: [address] [place] [address] Result Comment: The [place] Diabetes Association (ADA) provides guidance for cutoff values for fasting glucose and random glucose. The ADA defines fasting as no caloric intake for at least 8 hours. Fasting plasma glucose results between 100 to 125 mg/dL indicate increased risk for diabetes (prediabetes). Fasting plasma glucose results greater than or equal to 126 mg/dL meet the criteria for diagnosis of diabetes. In the absence of unequivocal hyperglycemia, results should be confirmed by repeat testing. In a patient with classic symptoms of hyperglycemia or hyperglycemic crisis, random plasma glucose results greater than or equal to 200 mg/dL meet the criteria for diagnosis of diabetes. Reference: Standards of Medical Care in Diabetes 2016, [place] [employer] Association. Diabetes Care. 2016.39(Suppl 1). Performed By: #### 2 4323-8 ####[facility] [id number] [place] [address] [place] Potassium [Moles/Vol] 3.8 mmol/L Normal 3.7-5.1 [facility] Comment on above: Order Comment: Speci men Type: BLOOD SPECIMENOrdering Facility: [facility] Address: [address] [place] [address] Performed By: #### 2 4323-8 ####[facility] HOSPITALNCLIA [id number] [place] [address] [place] Protein [Mass/Vol] 6.3 g/dL Normal 6.3-8.0 [facility] Comment on above: Order Comment: Speci men Type: BLOOD SPECIMENOrdering Facility: [facility] Address: [address] [place] [address] Performed By: #### 2 4323-8 ####[facility] [id number] [place] [address] [place] Sodium [Moles/Vol] 137 mmol/L Normal 136-144 [facility] Comment on above: Order Comment: Speci men Type: BLOOD SPECIMENOrdering Facility: [facility] Address: [address] [place] [address] Performed By: #### 2 4323-8 ####[facility] CENTERLI [id number] [place] [address] [place] Urea nitrogen [Mass/Vol] 13 mg/dL Normal 7-21 [facility] Comment on above: Order Comment: Speci men Type: BLOOD SPECIMENOrdering Facility: [facility] Address: [address] [place] [address] Performed By: #### 2 4323-8 ####[facility] [id number] [place] [address] [place] Ferritin SerPl-mCncon 2024 Ferritin [Mass/Vol] 32.3 ng/mL Normal 14.7-205.1 [facility] Comment on above: Order Comment: Speci men Type: BLOOD SPECIMENOrdering Facility: [facility] Address: [address] [place] [address] Performed By: #### 5 0190-8, 2275-4 ####[facility] LABCLIA [id number] [place] [address] [place] Iron and Iron binding capaci ty panelon 10-11-2024 Iron [Mass/Vol] 86 ug/dL Normal 41-186 [facility] Comment on above: Order Comment: Speci men Type: BLOOD SPECIMENOrdering Facility: [facility] Address: [address] [place] [address] Performed By: #### 5 0190-8, 2275-4 ####[facility] LABCLIA [id number] [address] STATES OF [facility] Iron binding capacity [Mass/Vol] 333 ug/dL Normal 232-386 [facility] Comment on above: Order Comment: Speci men Type: BLOOD SPECIMENOrdering Facility: [facility] Address: [address] [place] [address] Performed By: #### 5 0190-8, 2275-06 ####[facility] LABIA [id number] [address] [place] Iron/TIBC [Molar ratio] 25.8 % Normal 15.0-57.0 C [facility] Comment on above: Order Comment: Speci men Type: BLOOD SPECIMENOrdering Facility: [facility] Address: [address] [place] [address] Performed By: #### 5 0190-8, 2275-06 ####[facility] LABCLIA [id number] [place] [id number] [place] MR/Irina 09-15-2024 MR/DONA [facility] [address] [place] [address] OFFICE VISIT Date of Service: 09/15/24 MR#: [id number] Acct: [id number] Name: EDER SEVERNIO Rep #: [id number] : 1945 Provider: Dr. Katarina dias MD Age/Sex: 79/F Location: [facility] [place] Status: Signed Intake Vital Signs 09/12/24 08:36 09/13/24 10:03 09/15/24 09:52 Height 5 ft 5 in 5 ft 5 in 5 ft 5 in Weight: 149 lb BMI 24.7 BP 180/71 H Blood Pressure Location Lt brachial Position Sitting Respiration 16 Pulse 63 Pulse Source Monitor Temp 98.2 F Temp Source Temporal Pulse Oximetry (%) 96 Oxygen Delivery Method room air Intake Visit Reasons: [facility] ER FU Chief Complaint: [facility] ER FU Lead Business Analyst Required: No Accompanied by: Is patient in pain?: Yes (Left knee) Pain scale (1-10): 1 Allergies aspirin Allergy (Mild, Verified 09/15/24 09:37) unknown calcium carbonate (From Tums) Allergy (Mild, Verified 09/15/24 09:37) Other estradiol (From Vagifem) Allergy (Mild, Verified 09/15/24 09:37) unknown latanoprost (From Xalatan) Allergy (Mild, Verified 09/15/24 09:37) unknown miconazole (From Monistat 3) Allergy (Mild, Verified 09/15/24 09:37) burining, headache, nausea phenazopyridine Allergy (Mild, Verified 09/15/24 09:37) Other propoxyphene (From Darvon) Allergy (Mild, Verified 09/15/24 09:37) Other ranitidine (From Zantac) Allergy (Mild, Verified 09/15/24 09:37) unknown skin cleanser combination no.17 (From Monistat 3) Allergy (Mild, Verified 09/15/24 09:37) burining, headache, nausea tioconazole (From Monistat 1 (tioconazole)) Allergy (Mild, Verified 09/15/24 09:37) burning, headache, nausea amoxicillin Allergy (Verified 09/15/24 09:37) Anaphylaxis ibuprofen (From Advil) Allergy (Verified 09/15/24 09:37) Other indomethacin (From Indocin) Allergy (Verified 09/15/24 09:37) Anaphylaxis indomethacin sodium (From Indocin) Allergy (Verified 09/15/24 09:37) Anaphylaxis prednisolone Allergy (Verified 09/15/24 09:37) Swelling Sulfa (Sulfonamide Antibiotics) Allergy (Verified 09/15/24 09:37) Anaphylaxis barium sulfate Adverse Reaction (Verified 09/15/24 09:37) Rash nitrofurantoin macrocrystalline (From Macrodantin) Adverse Reaction (Verified 09/15/24 09:37) Other prednisone Adverse Reaction (Verified 09/15/24 09:37) Other progesterone Adverse Reaction (Verified 09/15/24 09:37) Other propoxyphene HCl (From Darvon) Adverse Reaction (Verified 09/15/24 09:37) Other Medications ???Medication ???Instructions ???Recorded ???Confirmed ???Type L.acidophilus-L.plantar um-B.animalis-B.longum 1 ea PO DAILY 5 09/15/24 History 2 billion cell capsule diphenhydramine HCl 25 mg capsule 25 mg PO BID PRN PRN Allergies 09/15/24 History biotin 1 mg capsule 2,500 mcg PO QDAY 10/17/17 5 History Nattokinase 2,000 mg PO DAILY 12/05/20 5 History lutein 20 mg capsule 20 mg PO DAILY 06/10/22 09/15/24 H istory magnesium amino acid chelate 100 100 mg PO DAILY 12/09/22 09/15/24 History mg tablet phlebotomies for hemachromatosis See Rx Instructions IM .COMPLEX 09/15/24 History albuterol sulfate 90 mcg/actuation 2 puff inhalation Q4H PRN PRN 09/15/24 Rx aerosol inhaler Wheezing #8.5 grams quercetin 500 mg capsule mg PO 06/30/24 09/15/24 History Held on 09/12/24. Instructions: Conflicting Appointment tafluprost (PF) 0.0015 % eye drops 1 drp ophthalmic (eye) QHS 06/3009/15/24 History in a dropperette azithromycin 250 mg tablet 250 mg PO .COMPLEX #12 tabs 09/15/24 Rx Have you fallen in the past year?: No PFSH Medical History (Updated 09/15/24 @ 11:[address] Katarina Medina MD) Left knee pain History of thyroid nodule Secondary polycythemia Oral allergy syndrome Upper respiratory infection Suspected COVID-19 virus infection Neuropathy Hives Temporal arteritis Ductal carcinoma in situ (DCIS) of breast Gallstones Thyroid nodule History of pneumonia as a child GERD (gastroesophageal reflux disease) Vegan diet Arthritis Acute urticaria Osteopenia Macular degeneration Hemochromatosis Glaucoma Cataract Asthma Allergic rhinitis Acid reflux Surgical History H/O laparoscopy History of lumpectomy of left breast History of cataract surgery History of cholecystectomy Family History Sister Breast cancer Mother Diabetes Myocardial infarction, Onset Age: 68 Arthritis Liver disease Osteoporosis Father Myocardial infarction, Onset Age: 75 Brother Myocardial infarction, Onset Age: 44 Parkinsons Other Cancer Social History Smoking (more content not included)... Normal [facility] Chest PA and Lateralon 09-12 Chest PA and Lateral [facility] Imaging Services [address] [place] [address] [id number] Chest PA and Lateral MR#: [id number] Acct: [id number] Name: EDER SEVERINO Rep #: [id number] : 1945 F 79 From: Jensen Deal MD PCP: Dr. Katarina Medina MD Status: [facility] ER Study: Chest PA and Lateral Date of Exam: 09/12/24 Exam# [id number] Ordering Dr: Nathanael Bowers DO PROCEDURE: CHEST PA AND LATERAL 09/12/2024 REASON FOR EXAM: COUGH AND CONGESTION TECHNIQUE: CHEST PA AND LATERAL COMPARISON: Two-view chest, 05/29/2018. FINDINGS: The lungs are clear. The heart borders mediastinum and pulmonary vascular pattern are normal. The visualized upper abdominal bowel gas pattern is normal. There are no acute bony abnormalities. RAD/Chest PA and Lateral IMPRESSION: No evidence of acute cardiopulmonary pathology. Reading Location: [id number] CC: Dr. Nathanael Bowers DO; Dr. Katarina Medina MD Pick Up Man: Signed Normal [facility] Emergency Department Summary on 09-12-2024 Emergency Department Summary [facility] Medical Records Department [address] [place] [address] Emergency Department Summary 09/12/24 MR#: [id number] Acct: [id number] Name: EDER SEVERINO Rep #: [id number] : 1945 79 From: Nathanael Bowers DO PCP: Dr. Katarina Medina MD Status:DEP ER Location: ED HPI History of Present Illness Chief Complaint: Cold Sx Narrative Narrative: Chief complaint and HPI: Congestion, left knee and shoulder pain. 79-year-old female with past medical history of arthritis, GERD, thyroid disease presents for evaluation of left knee and shoulder pain as well as congestion. Patient states that for the past several days she has had pain in her left knee. States that it worsens throughout the day. States she has a history of arthritis and is concerned that the pain is secondary to that. She also endorses intermittent pain in the left shoulder however she states it is minimal. She denies any falls or trauma. She is able to ambulate without difficulty. Patient states she has also had some nasal/chest congestion for the past 3 weeks. She states she followed up with her PCP and was placed on azithromycin without improvement. She states no chest x-ray was performed. 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 She denies any fever, chills, shortness of breath, chest pain, abdominal pain, nausea, vomiting, numbness/tingling, weakness. Review of systems: See HPI Medications: As listed on the chart Allergies: As listed on the chart PFSH: Per chart Vital signs: As listed on the chart. Reviewed. Physical exam: Gen: A O x3, NAD Head: Normocephalic, atraumatic Eyes: No sclera icterus, conjunctiva clear, PERRL, EOMI ENT: TMs clear BL, moist mucous membranes, posterior oropharynx unremarkable, uvula midline, tonsils not enlarged, no facial tenderness, + mild nasal congestion Neck: Trachea midline, No JVD, Full ROM, No meningismus CV: RRR, no murmurs, no peripheral edema Resp: Lungs CTA BL, no w/r/c GI: Abd soft, non-distended, non-tender, no r/r/g Musc: Full ROM of all the extremities including the left shoulder and left knee, no deformity, no erythema/warmth/crepitu s/rash to the left shoulder or left knee, radial pulse +2 bilaterally, DP/PT pulses +2 bilaterally, compartments soft, no instability of the left shoulder or left knee, tenderness to palpation of the left shoulder however some mild diffuse tenderness to palpation of the left knee Skin: Warm, dry, skin abrasion to left forearm Neuro: Alert, oriented, grossly intact, sensation intact Psych: Cooperative, appropriate mood and affect [facility] Medical History History of thyroid nodule Secondary polycythemia Oral allergy syndrome Upper respiratory infection Suspected COVID-19 virus infection Neuropathy Hives Temporal arteritis Ductal carcinoma in situ (DCIS) of breast Gallstones Thyroid nodule History of pneumonia as a child GERD (gastroesophageal reflux disease) Vegan diet Arthritis Acute urticaria Osteopenia Macular degeneration Hemochromatosis Glaucoma Cataract Asthma Allergic rhinitis Acid reflux Home Medications ???Medication ???Instructions ???Recorded ???Last Taken ???Type L.acidophilus-L.plantar um-B.animalis-B.longum 1 ea PO DAILY 5 03/09/16 History 2 billion cell capsule diphenhydramine HCl 25 mg capsule 25 mg PO BID PRN PRN Allergies Unknown History biotin 1 mg capsule 2,500 mcg PO QDAY 10/17/17 Unknown History Nattokinase 2,000 mg PO DAILY 12/05/20 Unknown History lutein 20 mg capsule 20 mg PO DAILY 06/10/22 Unknown Hi story magnesium amino acid chelate 100 100 mg PO DAILY 12/09/22 Unknown H istory mg tablet phlebotomies for hemachromatosis See Rx Instructions IM .COMPLEX Unknown History albuterol sulfate 90 mcg/actuation 2 puff inhalation Q4H PRN PRN Unknown Rx aerosol inhaler Wheezing #8.5 grams quercetin 500 mg capsule mg PO 06/30/24 Unknown History Held on 09/12/24. Instructions: Conflicting Appointment tafluprost (PF) 0.0015 % eye drops 1 drp ophthalmic (eye) QHS 06/30 Unknown History in a dropperette azithromycin 250 mg tablet 250 mg PO .COMPLEX #12 tabs Unknown Rx Allergy/AdvReac Type Severity Reaction Status Date / Time aspirin Allergy Mild unknown Verified 09/12/24 08:36 calcium carbonate (From Tums) Allergy Mild Other Verified 09/12/24 08:36 estradiol (From Vagifem) Allergy Mild unknown Verified 09/12/24 08:36 latanoprost (From Xalatan) Allergy Mild unknown Verified 09/12/24 08:36 miconazole (From Monistat 3) Allergy Mild burining, Verified 09/12/24 08:36 headache, nausea phenazopyridine Allergy Mild Other Verified 09/12/24 08:36 (more content not included)... Normal [facility] Knee 4 or More Viewson 09-12 Knee 4 or More Views [facility] Imaging Services [address] [place] [address] Knee 4 or More Views MR#: [id number] Acct: [id number] Name: EDER SEVERINO Rep #: [id number] : 1945 F 79 From: Jensen Deal MD PCP: Dr. Katarina Medina MD Status: DEP ER Study: Knee 4 or More Views Date of Exam: 09/12/24 Exam# [id number] Ordering Dr: Nathanael Bowers DO PROCEDURE: KNEE 4 OR MORE VIEWS 09/12/2024 REASON FOR EXAM: PAIN TECHNIQUE: KNEE 4 OR MORE VIEWS COMPARISON: Left knee, 10/16/2018. FINDINGS: There is no evidence of fracture or dislocation. There is no knee joint effusion. There is mild arthritis of the patellofemoral joint. There is mild arthritis of the medial joint space compartment of the knee. There is no arthritis of the lateral joint space compartment of the knee. The periarticular soft tissues are normal. RAD/Knee 4 or More Views IMPRESSION: Mild arthritis without knee joint effusion. Reading Location: [id number] CC: Dr. Nathanael Bowers, DO; Dr. Katarina Medina MD Pick Up Man: Signed Normal [facility] Urgent Care Visit Reporton 0 09-01-2024 Urgent Care Visit Report [facility] [address] [place] [address] OFFICE VISIT Date of Service: 09/01/24 MR#: [id number] Acct: [id number] Name: EDER SEVERINO Rep #: [id number] : 1945 Provider: DEREK Cha Age/Sex: 79/F Location: [facility] [place] Status: Signed Intake Vital Signs 07/20/24 14:05 09/01/24 16:20 Height 5 ft 5 in BP 124/80 H Blood Pressure Location Rt brachial Position Sitting Respiration 16 Pulse 61 Pulse Source NIBP Temp 98.2 F Temp Source Oral Pulse Oximetry (%) 97 Intake Visit Reasons: CONGESTION, SINUS, THROAT BLOCKAGE Chief Complaint: Mucus in throat Lead Business Analyst Required: No Accompanied by: Is patient in pain?: No Allergies aspirin Allergy (Mild, Verified 06/30/24 14:26) unknown calcium carbonate (From Tums) Allergy (Mild, Verified 06/30/24 14:26) Other estradiol (From Vagifem) Allergy (Mild, Verified 06/30/24 14:26) unknown latanoprost (From Xalatan) Allergy (Mild, Verified 06/30/24 14:26) unknown miconazole (From Monistat 3) Allergy (Mild, Verified 06/30/24 14:26) burining, headache, nausea phenazopyridine Allergy (Mild, Verified 06/30/24 14:26) Other propoxyphene (From Darvon) Allergy (Mild, Verified 06/30/24 14:26) Other ranitidine (From Zantac) Allergy (Mild, Verified 06/30/24 14:26) unknown skin cleanser combination no.17 (From Monistat 3) Allergy (Mild, Verified 06/30/24 14:26) burining, headache, nausea tioconazole (From Monistat 1 (tioconazole)) Allergy (Mild, Verified 06/30/24 14:26) burning, headache, nausea amoxicillin Allergy (Verified 06/30/24 14:26) Anaphylaxis ibuprofen (From Advil) Allergy (Verified 06/30/24 14:26) Other indomethacin (From Indocin) Allergy (Verified 06/30/24 14:26) Anaphylaxis indomethacin sodium (From Indocin) Allergy (Verified 06/30/24 14:26) Anaphylaxis prednisolone Allergy (Verified 06/30/24 14:26) Swelling Sulfa (Sulfonamide Antibiotics) Allergy (Verified 06/30/24 14:26) Anaphylaxis barium sulfate Adverse Reaction (Verified 06/30/24 14:26) Rash nitrofurantoin macrocrystalline (From Macrodantin) Adverse Reaction (Verified 06/30/24 14:26) Other prednisone Adverse Reaction (Verified 06/30/24 14:26) Other progesterone Adverse Reaction (Verified 06/30/24 14:26) Other propoxyphene HCl (From Darvon) Adverse Reaction (Verified 06/30/24 14:26) Other Is last menstrual period known: No Post menopausal: No Patient : No Have you fallen in the past year?: No Nurse's Note: Complaint of issues with eye drops and causing a excess clear mucus in throat. Usually occurs after administering eye drops. Started 5 weeks ago. [facility] Medical History History of thyroid nodule Secondary polycythemia Oral allergy syndrome Upper respiratory infection Suspected COVID-19 virus infection Neuropathy Hives Temporal arteritis Ductal carcinoma in situ (DCIS) of breast Gallstones Thyroid nodule History of pneumonia as a child GERD (gastroesophageal reflux disease) Vegan diet Arthritis Acute urticaria Osteopenia Macular degeneration Hemochromatosis Glaucoma Cataract Asthma Allergic rhinitis Acid reflux Surgical History H/O laparoscopy History of lumpectomy of left breast History of cataract surgery History of cholecystectomy Family History Sister Breast cancer Mother Diabetes Myocardial infarction, Onset Age: 69 Arthritis Liver disease Osteoporosis Father Myocardial infarction, Onset Age: 75 Brother Myocardial infarction, Onset Age: 44 Parkinsons Other Cancer Social History Smoking Status: Never smoker alcohol intake: never substance use type: does not use what type of physical activity do you participate in: walking frequency: 3-4 times per week HPI HPI Chief Complaint: Mucus in throat Details: EDER SLOAN, is a 79 F who presents to the office today for [facility] for approximately 1-week history of progressively irritated/sore throat with purulent postnasal drip/cough. She notes starting new ophthalmic drops approximately 5 weeks ago as prescribed by ophthalmology for her glaucoma and feels after each administration of drops as she feels drainage going down the back of her throat with localized irritation; she was told to stop the drops by her electrolytic de scaler 2 weeks ago for a week to see if the symptoms subsided which they did only minimally then restarted and worsened once again therefore patient has not been using her drops over the last 3 days but she has not told her electrolytic de scaler about the last 3 days. She notes (more content not included)... Normal [facility] 25([place])D3 [facility] 2024 25-hydroxyvitamin D3 [Mass/Vol] 72.3 ng/mL Normal 31.0-80.0 [facility] Comment on above: Order Comment: Speci men Type: BLOOD SPECIMENOrdering Facility: [facility] Address: [address] [place] [address] Performed By: #### 1 [id number] ####[facility] LABCLIA [id number] [place] [id number] [place] CNPCassie 08-27-2024 CNPN Telephone (HEMAWS) EDER SEVERINO ([id number]) 1945 F Date Time Provider Department 08/27/24 LUIS RON HEMAWS During your visit today, we recorded the following information about you: Angie Seth LPN 08/27/2024 9:33 AM Signed Pt walks in to office currently schedules phlebo every 3 months. She is experiencing an increase in her brain fog. She states she recently saw Dr Friend who thought she should speak to you regarding increasing her phlebo's. She has noted brain fog for a couple years that she feels has increased. PCP is Dr Medina who she saw about a month ago. He is aware of the brain fog. There is a brain MRI on file here 09/02/23 ordered by neurology. Please advise on possibly increasing phlebotomies. Her next OV and phlebo here in 10/12/24. She is going to see nutrition on 09/07/[address] Fletcher. WILLA May Paul A, DO 08/27/2024 5:05 PM Signed I don't think hemochromatosis is causing brain fog. Her ferritin is at goal (< 50 ng/mL). if she had polycythemia vera (she doesn't) then more frequent phlebotomy would make sense. DO Rolo Desai Kara, LPN 08/30/2024 9:32 AM Signed Pt notified and voices understanding. Ferritin trend reviewed with pt. Angie Seth LPN Allergies As of Date: 08/27/2024 Noted Allergy Reaction SULFA (SULFONAMIDE ANTIBIOTICS) 11/22/2004 10 - Anaphylaxis SUNFLOWER SEED 12/21/2022 2 - Rash ADVIL (IBUPROFEN) 11/22/2004 5 - Intolerance Comments: along with any non-steroidal anti- inflammatory AMOXICILLIN 11/22/2004 5 - Intolerance ASPIRIN 07/13/2008 Comments: skin reaction- redness and burning BARIUM IODIDE 11/22/2004 2 - Rash BARIUM SULFATE 12/09/2022 2 - Rash DARVON (PROPOXYPHENE HCL) 11/22/2004 1 - Mental Status Change Comments: blacked out with postural changes INDOCIN (INDOMETHACIN SODIUM) 11/22/2004 5 - Intolerance MACRODANTIN (NITROFURANTOIN) 11/22/2004 Comments: neuropathy MONISTAT 1 (TIOCONAZOLE) 11/22/2004 Comments: headache and vaginal burning MONISTAT 3 (MICONAZOLE) 02/04/2005 5 - Intolerance Comments: vaginal burning, headache,nausea, relieved with benedryl PREDNISOLONE 02/15/2014 7 - Swelling Comments: swelling side of face, facial itching, reddened eye PREDNISONE 11/22/2004 Comments: dose related PROGESTERONE 11/22/2004 Comments: migraine psoriosis lotion [Other] 11/22/2004 2 - Rash TREE AND SHRUB POLLEN 01/14/2023 14 - Other: See Comments TUMS (CALCIUM CARBONATE) 01/10/2009 Comments: Itchy eyes URISTAT (PHENAZOPYRIDINE HCL) 12/24/2004 5 - Intolerance VAGIFEM (ESTRADIOL) 04/19/2005 Comments: neuropathy XALATAN (LATANOPROST) 04/19/2005 12 - Shortness of Breath Comments: chest pain ZANTAC (RANITIDINE HCL) 03/25/2007 Comments: Burning in Legs, headache , facial Twitching, jittery Date Reviewed: 07/20/2024 Reviewed by: Migdalia Sandoval RN - Fully Assessed Reason for Visit: Patient Update [1234] Prescriptions as of 08/30/2024 - triamcinolone acetonide (KENALOG) 0.1 % cream Apply 1 application to affected area once daily. - EPINEPHrine (EPIPEN) 0.3 mg/0.3 mL auto-injector Inject 0.3 mg intramuscularly as needed. - tafluprost, PF, (ZIOPTAN) 0.0015 % ophthalmic solution dropperette Use 1 drop in eyes daily at bedtime. - quercetin 500 mg cap Take 500-750 mg by mouth two times a day. 1-2 or twice daily - LUTEIN-ZEAXANTHIN ORAL Take 10 mg by mouth once daily. - soybean, fermented (NATTOKINASE ORAL) Take 1-2 tablets by mouth once daily. 2,000 fu - Lactobacillus acidophilus (PROBIOTIC ORAL) Take by mouth once daily. - cholecalciferol, vitamin D3, (VITAMIN D3 ORAL) (Discontinued) Take 5,000 Int'l Units/day by mouth once daily. - Bacillus coagulans/inulin (PROBIOTIC WITH PREBIOTIC ORAL) Take 1 capsule by mouth once daily. - OTC PRODUCT [place]- r/t [facility] study - MAGNESIUM ORAL Take 300 mg by mouth once daily. 1-2 once daily - Biotin 2,500 mcg cap Take 2,500 mg by mouth once daily. - OTC PRODUCT Take 100 mg by mouth twice daily. Nattokinase 100mg: Take one(1) tablet daily. 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 Normal [facility] Gastroenterology Visit Repor ton 07-30-2024 Gastroenterology Visit Report [facility] Gastroenterology [address] [place] [address] OFFICE VISIT Date of Service: 07/30/24 MR#: [id number] Acct: [id number] Name: ENRIQUEALEXEDER MARTI Rep #: [id number] : 1945 Provider: Pascual Fletcher DO Age/Sex: 79/F Location: [facility] [place] Status: Signed Intake Vital Signs 06/30/24 14:34 07/20/24 14:05 Height 5 ft 5 in 5 ft 5 in Weight: 153 lb 6 oz BMI 25.5 BP 181/71 H Blood Pressure Location Lt brachial Position Sitting Respiration 16 Pulse 63 Pulse Source Monitor Temp 98.4 F Temp Source Temporal Pulse Oximetry (%) 97 Oxygen Delivery Method room air Intake Visit Reasons: follow up Allergies aspirin Allergy (Mild, Verified 06/30/24 14:26) unknown calcium carbonate (From Tums) Allergy (Mild, Verified 06/30/24 14:26) Other estradiol (From Vagifem) Allergy (Mild, Verified 06/30/24 14:26) unknown latanoprost (From Xalatan) Allergy (Mild, Verified 06/30/24 14:26) unknown miconazole (From Monistat 3) Allergy (Mild, Verified 06/30/24 14:26) burining, headache, nausea phenazopyridine Allergy (Mild, Verified 06/30/24 14:26) Other propoxyphene (From Darvon) Allergy (Mild, Verified 06/30/24 14:26) Other ranitidine (From Zantac) Allergy (Mild, Verified 06/30/24 14:26) unknown skin cleanser combination no.17 (From Monistat 3) Allergy (Mild, Verified 06/30/24 14:26) burining, headache, nausea tioconazole (From Monistat 1 (tioconazole)) Allergy (Mild, Verified 06/30/24 14:26) burning, headache, nausea amoxicillin Allergy (Verified 06/30/24 14:26) Anaphylaxis ibuprofen (From Advil) Allergy (Verified 06/30/24 14:26) Other indomethacin (From Indocin) Allergy (Verified 06/30/24 14:26) Anaphylaxis indomethacin sodium (From Indocin) Allergy (Verified 06/30/24 14:26) Anaphylaxis prednisolone Allergy (Verified 06/30/24 14:26) Swelling Sulfa (Sulfonamide Antibiotics) Allergy (Verified 06/30/24 14:26) Anaphylaxis barium sulfate Adverse Reaction (Verified 06/30/24 14:26) Rash nitrofurantoin macrocrystalline (From Macrodantin) Adverse Reaction (Verified 06/30/24 14:26) Other prednisone Adverse Reaction (Verified 06/30/24 14:26) Other progesterone Adverse Reaction (Verified 06/30/24 14:26) Other propoxyphene HCl (From Darvon) Adverse Reaction (Verified 06/30/24 14:26) Other Medications ???Medication ???Instructions ???Recorded ???Confirmed ???Type L.acidophilus-L.plantar um-B.animalis-B.longum 1 ea PO DAILY 5 07/30/24 History 2 billion cell capsule diphenhydramine HCl 25 mg capsule 25 mg PO BID PRN PRN Allergies 07/30/24 History biotin 1 mg capsule 2,500 mcg PO QDAY 10/17/17 5 History Nattokinase 2,000 mg PO DAILY 12/05/20 5 History lutein 20 mg capsule 20 mg PO DAILY 06/10/22 07/30/24 H istory magnesium amino acid chelate 100 100 mg PO DAILY 12/09/22 07/30/24 History mg tablet phlebotomies for hemachromatosis See Rx Instructions IM .COMPLEX 07/30/24 History albuterol sulfate 90 mcg/actuation 2 puff inhalation Q4H PRN PRN 07/30/24 Rx aerosol inhaler Wheezing #8.5 grams quercetin 500 mg capsule mg PO 06/30/24 07/30/24 History tafluprost (PF) 0.0015 % eye drops 1 drp ophthalmic (eye) QHS 06/3007/30/24 History in a dropperette Have you fallen in the past year?: No PFSH Medical History History of thyroid nodule Secondary polycythemia Oral allergy syndrome Upper respiratory infection Suspected COVID-19 virus infection Neuropathy Hives Temporal arteritis Ductal carcinoma in situ (DCIS) of breast Gallstones Thyroid nodule History of pneumonia as a child GERD (gastroesophageal reflux disease) Vegan diet Arthritis Acute urticaria Osteopenia Macular degeneration Hemochromatosis Glaucoma Cataract Asthma Allergic rhinitis Acid reflux Surgical History H/O laparoscopy History of lumpectomy of left breast History of cataract surgery History of cholecystectomy Family History Sister Breast cancer Mother Diabetes Myocardial infarction, Onset Age: 69 Arthritis Liver disease Osteoporosis Father Myocardial infarction, Onset Age: 75 Brother Myocardial infarction, Onset Age: 44 Parkinsons Other Cancer Social History Smoking Status: Never smoker alcohol intake: never substance use type: does not use what type of physical activity do you participate in: walking frequency: 3-4 times per week HPI HPI Details: EDER SEVERINO, is a 79 F who presents to the office today for follow up. *BGI established 5.9.25 Pt her (more content not included)... Normal [facility] YUSEF + Protein Elect, Serumon 07-20-2024 Albumin [Mass/Vol] 3.8 g/dL Normal 2.9-4.4 [facility] Comment on above: Order Comment: Y Performed By: #### L 3100.3425, L100.0100, L500.4050, L300.3900, L503.5510 #### [facility] Laboratory [address], [address] Albumin/Globulin [Mass ratio] 1.4 {ratio} Normal 0.7-1.7 [facility] Comment on above: Order Comment: Y Performed By: #### L 3100.3425, L100.0100, L500.4050, L300.3900, L503.5510 #### [facility] [address] [place], [address] LRBGV-8-XSNP 0.3 g/dL Normal 0.0-0.4 [facility] Comment on above: Order Comment: Y Performed By: #### L 3100.3425, L100.0100, L500.4050, L300.3900, L503.5510 #### [facility] [address] [place], [address] PBBHM-3-OIPZ 0.8 g/dL Normal 0.4-1.0 [facility] Comment on above: Order Comment: Y Performed By: #### L 3100.3425, L100.0100, L500.4050, L300.3900, L503.5510 #### [facility] [address] [place], [address] BETA GLOBULIN 1.0 g/dL Normal 0.7-1.3 [facility] Comment on above: Order Comment: Y Performed By: #### L 3100.3425, L100.0100, L500.4050, L300.3900, L503.5510 #### [facility] [address] [place], [address] GAMMA GLOBULIN 0.7 g/dL Normal 0.4-1.8 [facility] Comment on above: Order Comment: Y Performed By: #### L 3100.3425, L100.0100, L500.4050, L300.3900, L503.5510 #### [facility] [address] [place], [address] Globulin (S) [Mass/Vol] 2.8 g/dL Normal 2.2-3.9 [facility] Comment on above: Order Comment: Y Performed By: #### L 3100.3425, L100.0100, L500.4050, L300.3900, L503.5510 #### [facility] [address] [place], [address] YUSEF RESULT,S Comment Normal . [facility] Comment on above: Order Comment: Y Result Comment: No m onoclonality detected. Performed By: #### L 3100.3425, L100.0100, L500.4050, L300.3900, L503.5510 #### [facility] [address] [place], [address] IMMUNOGLOB A QN 60 mg/dL Low 64-422 [facility] Comment on above: Order Comment: Y Performed By: #### L 3100.3425, L100.0100, L500.4050, L300.3900, L503.5510 #### [facility] [address] [place], [address] IMMUNOGLOB G QN 716 mg/dL Normal 586-1602 [facility] Comment on above: Order Comment: Y Performed By: #### L 3100.3425, L100.0100, L500.4050, L300.3900, L503.5510 #### [facility] [address] [place], [address] IMMUNOGLOB M QN 31 mg/dL Normal 26-217 [facility] Comment on above: Order Comment: Y Performed By: #### L 3100.3425, L100.0100, L500.4050, L300.3900, L503.5510 #### [facility] [address] [place], [address] M-Jose Not Observed Normal Not Observed [facility] Comment on above: Order Comment: Y Performed By: #### L 3100.3425, L100.0100, L500.4050, L300.3900, L503.5510 #### [facility] [address], [address] NOTE: Comment Normal . [facility] Comment on above: Order Comment: Y Result Comment: Prot ein electrophoresis scan will follow via computer, mail, or forensic analyst delivery. Performed at: [address] [id number] Fire Control Officer: Juanito Boone PhD, Phone: [phone] Performed By: #### L 3100.3425, L100.0100, L500.4050, L300.3900, L503.5510 #### [facility] [address] [place], [address] Protein [Mass/Vol] 6.6 g/dL Normal 6.0-8.5 [facility] Comment on above: Order Comment: Y Performed By: #### L 3100.3425, L100.0100, L500.4050, L300.3900, L503.5510 #### [facility] [address] [place], [place], [id number] CBC W Auto Differential pane l (Bld)on 07-19-2024 Basophils (Bld) [#/Vol] 0.06 10*3/uL Normal <0.11 [facility] Comment on above: Order Comment: Speci men Type: BLOOD SPECIMENOrdering Facility: [facility] Address: [address] [place] [address] Performed By: #### 5 7021-8 ####[facility] HOSPITALDIMITRISLIA [id number] [place] [address] [place] Basophils/100 WBC (Bld) 1.2 % Normal C [facility] Comment on above: Order Comment: Speci men Type: BLOOD SPECIMENOrdering Facility: [facility] Address: [address] [place] [address] Performed By: #### 5 7021-8 ####[facility] CENTERLIA [id number] [place] [address] [place] Differential cell count method Nom (Bld) Auto Normal [facility] Comment on above: Order Comment: Speci men Type: BLOOD SPECIMENOrdering Facility: [facility] Address: [address] [place] [address] Performed By: #### 5 7021-8 ####[facility] MILLGOSH[facility] GENERAL HOSPITALLIA [id number] [place] [address] [place] Eosinophils (Bld) [#/Vol] 0.11 10*3/uL Normal <0.46 [facility] Comment on above: Order Comment: Speci men Type: BLOOD SPECIMENOrdering Facility: [facility] Address: [address] [place] [address] Performed By: #### 5 7021-8 ####[facility] CENTERLIA [id number] [place] [address] [place] Eosinophils/100 WBC (Bld) 2.1 % Normal [facility] Comment on above: Order Comment: Speci men Type: BLOOD SPECIMENOrdering Facility: [facility] Address: [address] [place] [address] Performed By: #### 5 7021-8 ####[facility] HOSPITALMACK [id number] [place] [address] [place] Erythrocyte distribution width (RBC) [Ratio] 12.6 % Normal 11.5-15.0 [facility] Comment on above: Order Comment: Speci men Type: BLOOD SPECIMENOrdering Facility: [facility] Address: [address] [place] [address] Performed By: #### 5 7021-8 ####[facility] HOSPITALMACK [id number] [place] [address] [place] Hematocrit (Bld) [Volume fraction] 43.9 % Normal 36.0-46.0 [facility] Comment on above: Order Comment: Speci men Type: BLOOD SPECIMENOrdering Facility: [facility] Address: [address] [place] [address] Performed By: #### 5 7021-8 ####[facility] HOSPITALMACK [id number] [place] [address] [place] Hemoglobin (Bld) [Mass/Vol] 14.9 g/dL Normal 11.5-15.5 [facility] Comment on above: Order Comment: Speci men Type: BLOOD SPECIMENOrdering Facility: [facility] Address: [address] [place] [address] Performed By: #### 5 7021-8 ####[facility] HOSPITALNCLI [id number] [place] [address] [place] Immature granulocytes (Bld) [#/Vol] 10*3/uL Normal <0.10 [facility] Comment on above: Order Comment: Speci men Type: BLOOD SPECIMENOrdering Facility: [facility] Address: [address] [place] [address] Performed By: #### 5 7021-8 ####[facility] CENTERLIA [id number] [place] [address] [place] Immature granulocytes/100 WBC (Bld) 0.2 % Normal [facility] Comment on above: Order Comment: Speci men Type: BLOOD SPECIMENOrdering Facility: [facility] Address: [address] [place] [address] Performed By: #### 5 7021-8 ####[facility] [id number] [place] [address] [place] Lymphocytes (Bld) [#/Vol] 1.30 10*3/uL Normal 1.00-4.00 [facility] Comment on above: Order Comment: Speci men Type: BLOOD SPECIMENOrdering Facility: [facility] Address: [address] [place] [address] Performed By: #### 5 7021-8 ####[facility] [id number] [place] [address] [place] Lymphocytes/100 WBC (Bld) 25.1 % Normal [facility] Comment on above: Order Comment: Speci men Type: BLOOD SPECIMENOrdering Facility: [facility] Address: [address] [place] [address] Performed By: #### 5 7021-8 ####[facility] [id number] [place] [address] [place] MCH (RBC) [Entitic mass] 29.6 pg Normal 26.0-34.0 [facility] Comment on above: Order Comment: Speci men Type: BLOOD SPECIMENOrdering Facility: [facility] Address: [address] [place] [address] Performed By: #### 5 7021-8 ####[facility] EUGENIEWNCLIA [id number] [place] [address] [place] MCHC (RBC) [Mass/Vol] 33.9 g/dL Normal 30.5-36.0 [facility] Comment on above: Order Comment: Speci men Type: BLOOD SPECIMENOrdering Facility: [facility] Address: [address] [place] [address] Performed By: #### 5 7021-8 ####[facility] HOSPITALNCLIA [id number] [place] [address] [place] MCV (RBC) [Entitic vol] 87.1 fL Normal 80.0-100.0 C [facility] Comment on above: Order Comment: Speci men Type: BLOOD SPECIMENOrdering Facility: [facility] Address: [address] [place] [address] Performed By: #### 5 7021-8 ####[facility] CENTERLIA [id number] [place] [address] [place] Monocytes (Bld) [#/Vol] 0.32 10*3/uL Normal <0.87 [facility] Comment on above: Order Comment: Speci men Type: BLOOD SPECIMENOrdering Facility: [facility] Address: [address] [place] [address] Performed By: #### 5 7021-8 ####[facility] HOSPITALNCLIA [id number] [place] [address] [place] Monocytes/100 WBC (Bld) 6.2 % Normal C [facility] Comment on above: Order Comment: Speci men Type: BLOOD SPECIMENOrdering Facility: [facility] Address: [address] [place] [address] Performed By: #### 5 7021-8 ####[facility] HOSPITALNCLI [id number] [place] [address] [place] Neutrophils (Bld) [#/Vol] 3.38 10*3/uL Normal 1.45-7.50 [facility] Comment on above: Order Comment: Speci men Type: BLOOD SPECIMENOrdering Facility: [facility] Address: [address] [place] [address] Performed By: #### 5 7021-8 ####[facility] H[facility]PITALWIDLIA [id number] [place] [address] [place] Neutrophils/100 WBC (Bld) 65.2 % Normal [facility] Comment on above: Order Comment: Speci men Type: BLOOD SPECIMENOrdering Facility: [facility] Address: [address] [place] [address] Performed By: #### 5 7021-8 ####[facility] [id number] [place] [address] [place] Nucleated RBC (Bld) [#/Vol] 10*3/uL Normal <0.01 [facility] Comment on above: Order Comment: Speci men Type: BLOOD SPECIMENOrdering Facility: [facility] Address: [address] [place] [address] Performed By: #### 5 7021-8 ####[facility]ITALA [id number] [place] [address] [place] Nucleated RBC/100 WBC (Bld) [Ratio] 0.0 /100 WBC Normal [facility] Comment on above: Order Comment: Speci men Type: BLOOD SPECIMENOrdering Facility: [facility] Address: [address] [place] [address] Performed By: #### 5 7021-8 ####[facility] HOSPITALNCLIA [id number] [place] [address] [place] Platelet mean volume (Bld) [Entitic vol] 9.6 fL Normal 9.0-12.7 [facility] Comment on above: Order Comment: Speci men Type: BLOOD SPECIMENOrdering Facility: [facility] Address: [address] [place] [address] Performed By: #### 5 7021-8 ####[facility] LIZZIENCYAZMIN [id number] [place] [address] [place] Platelets (Bld) [#/Vol] 207 10*3/uL Normal 150-400 [facility] Comment on above: Order Comment: Speci men Type: BLOOD SPECIMENOrdering Facility: [facility] Address: [address] [place] [address] Performed By: #### 5 7021-8 ####[facility] AVELINAASHLANDNCLIA [id number] [place] [address] [place] RBC (Bld) [#/Vol] 5.04 10*6/uL Normal 3.90-5.20 [facility] Comment on above: Order Comment: Speci men Type: BLOOD SPECIMENOrdering Facility: [facility] Address: [address] [place] [address] Performed By: #### 5 7021-8 ####[facility] AVELINAASHLANDNCLIA [id number] [place] [address] [place] WBC (Bld) [#/Vol] 5.18 10*3/uL Normal 3.70-11.00 [facility] Comment on above: Order Comment: Speci men Type: BLOOD SPECIMENOrdering Facility: [facility] Address: [address] [place] [address] Performed By: #### 5 7021-8 ####[facility]OSPITALNCLIA [id number] [place] [address] [place] Ferritin SerPl-mCncon 2024 Ferritin [Mass/Vol] 39.5 ng/mL Normal 14.7-205.1 [facility] Comment on above: Order Comment: Speci men Type: BLOOD SPECIMENOrdering Facility: [facility] Address: [address] [place] [address] Performed By: #### 2 276-4 ####[facility] LABCLIA [id number] SHOBHAShara MADDOX [id number] [place] [address] [place] Absolute lymphocyte countOrd ered By: Pascual Fletcher on 07-16-2024 Lymphocytes Auto (Unsp spec) [#/Vol] 1.31 10*3/uL 0.83-4.51 [facility] Absolute neutrophil countOrd ered By: Pascual Fletcher on 07-16-2024 Neutrophils (Bld) [#/Vol] 4.1 10*3/uL 2.0-7.7 [facility] Albumin Elph [Mass/Vol]Order ed By: Pascual Fletcher on 07-16-2024 Albumin [Mass/Vol] 3.8 g/dL 2.9-4.4 [facility] Anion gap in Serum or Plasma Ordered By: Pascual Fletcher on 07-16-2024 Anion gap [Moles/Vol] 13 mmol/L 5-15 [facility] Automated lymphocyte count a s percentage of total leukocytesOrdered By: Pascual Fletcher on 07-16-2024 Lymphocytes/100 WBC Auto (Unsp spec) 22.0 % 19-41 [facility] BUN/creatinine ratioOrdered By: Pascual Fletcher on 07-16-2024 Urea nitrogen/Creatinine [Mass ratio] 19.0 mg/mg 10-20 [facility] Basophil percentageOrdered B y: Pascual Fletcher on 07-16-2024 Basophils/100 WBC (Bld) 1.0 % 0-1 [facility] Bilirubin, totalOrdered By: Pascual Fletcher on 07-16-2024 Bilirubin [Mass/Vol] 0.65 mg/dL Normal 0.00-1.30 [facility] Comment on above: Performed By: #### L 3100.3425, L100.0100, L500.4050, L300.3900, L503.5510 #### [facility] [address] [place], [address] CBC W/Diff, Automatedon 05-0 PLT EST A Normal ADEQ [facility] Comment on above: Performed By: #### L 3100.3425, L100.0100, L500.4050, L300.3900, L503.5510 #### [facility] [address] [place], [address] PLT MORPH CLUMPED Normal [facility] Comment on above: Performed By: #### L 3100.3425, L100.0100, L500.4050, L300.3900, L503.5510 #### [facility] [address] [place], [address] Carbon dioxide, total [Moles /volume] in Central venous bloodOrdered By: Pascual Fletcher on 07-16-2024 CO2 [Moles/Vol] 20.8 mmol/L Low 21.0-32.0 [facility] Comment on above: Performed By: #### L 3100.3425, L100.0100, L500.4050, L300.3900, L503.5510 #### [facility] [address] [place], [place], [address] Chloride assayOrdered By: Ra subhash Fletcher on 07-16-2024 Chloride [Moles/Vol] 102 mmol/L Normal 98-108 [facility] Comment on above: Performed By: #### L 3100.3425, L100.0100, L500.4050, L300.3900, L503.5510 #### [facility] [address] [place], [address] Comprehensive Metabolic Prof ilon 07-16-2024 ALK PHOS 73 U/L Normal 35-104 [facility] Comment on above: Performed By: #### L 3100.3425, L100.0100, L500.4050, L300.3900, L503.5510 #### [facility] [address] [place], [address] BUN/CRE 19.0 RATIO Normal 10-20 [facility] Comment on above: Performed By: #### L 3100.3425, L100.0100, L500.4050, L300.3900, L503.5510 #### [facility] [address] [place], [address] GAP 13 Normal 5-15 [facility] Comment on above: Performed By: #### L 3100.3425, L100.0100, L500.4050, L300.3900, L503.5510 #### [facility] [address] [place], [address] Globulin (S) [Mass/Vol] 2.6 g/dL Normal 2.2-4.2 [facility] Comment on above: Performed By: #### L 3100.3425, L100.0100, L500.4050, L300.3900, L503.5510 #### [facility] [address] [place], [address] Potassium [Moles/Vol] 4.2 mmol/L Normal 3.3-5.1 [facility] Comment on above: Result Comment: Hemo lysis present, Results??could be affected. ?? Performed By: #### L 3100.3425, L100.0100, L500.4050, L300.3900, L503.5510 #### [facility] [address] [place], [address] T PROT 6.8 g/dL Normal 5.9-8.4 [facility] Comment on above: Performed By: #### L 3100.3425, L100.0100, L500.4050, L300.3900, L503.5510 #### [facility] [address] [place], [address] Comprehensive Metabolic Prof ilOrdered By: Pascual Fletcher on 07-16-2024 AST [Catalytic activity/Vol] 22 U/L Normal <=31 [facility] Comment on above: Hemolysis present, R esults could be affected. Result Comment: Hemo lysis present, Results??could be affected. ?? Performed By: #### L 3100.3425, L100.0100, L500.4050, L300.3900, L503.5510 #### [facility] [address] [place], [address] Eosinophil percentageOrdered By: Pascual Fletcher on 07-16-2024 Eosinophils/100 WBC (Bld) 1.0 % 0-5 [facility] Erythrocyte distribution wid th ratioOrdered By: Pascual Fletcher on 07-16-2024 Erythrocyte distribution width (RBC) [Ratio] 12.4 % 11.6-14.6 [facility] Erythrocyte distribution wid th standard deviationOrdered By: Pascual Fletcher on 07-16-2024 Erythrocyte distribution width (RBC) [Ratio] 39.8 fl 35.1-43.9 [facility] Gastroenterology Visit Repor ton 07-16-2024 Gastroenterology Visit Report [facility] Gastroenterology [address] [place] [address] OFFICE VISIT Date of Service: 07/16/24 MR#: [id number] Acct: [id number] Name: EDER SEVERINO Rep #: [id number] : 1945 Provider: Pascual Fletcher DO Age/Sex: 79/F Location: [facility] [place] Status: Signed Intake Vital Signs 06/30/24 14:34 Height 5 ft 5 in Weight: 153 lb 6 oz BMI 25.5 BP 181/71 H Blood Pressure Location Lt brachial Position Sitting Respiration 16 Pulse 63 Pulse Source Monitor Temp 98.4 F Temp Source Temporal Pulse Oximetry (%) 97 Oxygen Delivery Method room air Intake Visit Reasons: Brain fog Chief Complaint: Brain Fog Allergies aspirin Allergy (Mild, Verified 06/30/24 14:26) unknown calcium carbonate (From Tums) Allergy (Mild, Verified 06/30/24 14:26) Other estradiol (From Vagifem) Allergy (Mild, Verified 06/30/24 14:26) unknown latanoprost (From Xalatan) Allergy (Mild, Verified 06/30/24 14:26) unknown miconazole (From Monistat 3) Allergy (Mild, Verified 06/30/24 14:26) burining, headache, nausea phenazopyridine Allergy (Mild, Verified 06/30/24 14:26) Other propoxyphene (From Darvon) Allergy (Mild, Verified 06/30/24 14:26) Other ranitidine (From Zantac) Allergy (Mild, Verified 06/30/24 14:26) unknown skin cleanser combination no.17 (From Monistat 3) Allergy (Mild, Verified 06/30/24 14:26) burining, headache, nausea tioconazole (From Monistat 1 (tioconazole)) Allergy (Mild, Verified 06/30/24 14:26) burning, headache, nausea amoxicillin Allergy (Verified 06/30/24 14:26) Anaphylaxis ibuprofen (From Advil) Allergy (Verified 06/30/24 14:26) Other indomethacin (From Indocin) Allergy (Verified 06/30/24 14:26) Anaphylaxis indomethacin sodium (From Indocin) Allergy (Verified 06/30/24 14:26) Anaphylaxis prednisolone Allergy (Verified 06/30/24 14:26) Swelling Sulfa (Sulfonamide Antibiotics) Allergy (Verified 06/30/24 14:26) Anaphylaxis barium sulfate Adverse Reaction (Verified 06/30/24 14:26) Rash nitrofurantoin macrocrystalline (From Macrodantin) Adverse Reaction (Verified 06/30/24 14:26) Other prednisone Adverse Reaction (Verified 06/30/24 14:26) Other progesterone Adverse Reaction (Verified 06/30/24 14:26) Other propoxyphene HCl (From Darvon) Adverse Reaction (Verified 06/30/24 14:26) Other Have you fallen in the past year?: No [facility] Medical History History of thyroid nodule Secondary polycythemia Oral allergy syndrome Upper respiratory infection Suspected COVID-19 virus infection Neuropathy Hives Temporal arteritis Ductal carcinoma in situ (DCIS) of breast Gallstones Thyroid nodule History of pneumonia as a child GERD (gastroesophageal reflux disease) Vegan diet Arthritis Acute urticaria Osteopenia Macular degeneration Hemochromatosis Glaucoma Cataract Asthma Allergic rhinitis Acid reflux Surgical History H/O laparoscopy History of lumpectomy of left breast History of cataract surgery History of cholecystectomy Family History Sister Breast cancer Mother Diabetes Myocardial infarction, Onset Age: 69 Arthritis Liver disease Osteoporosis Father Myocardial infarction, Onset Age: 75 Brother Myocardial infarction, Onset Age: 44 Parkinsons Other Cancer Social History Smoking Status: Never smoker alcohol intake: never substance use type: does not use what type of physical activity do you participate in: walking frequency: 3-4 times per week HPI HPI Chief Complaint: Brain Fog Details: EDER SEVERINO, is a 79 F who presents to the office today for initial consult. Pt here with concerns with brain fog the last two years. States sx started after COVID she had in March 2021 and November 2021. She said she has trouble remembering words and names. Pt states she was tested for allergies and now takes allergy injections. She has read about histamine intolerance and is concerned she might have that. Denies abdominal pain, NV, heartburn, or trouble with BMs. 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 She has been on therapeutic phlebotomy since her diagnosis. Her diagnosis was postmenopausal. She says about 2 years ago since developing COVID twice she reports excess fatigue, more widespread joint pain, occasional nausea and long-standing brain fog. Some of these complaints had been investigated/treated in isolation. 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 However as per the patie (more content not included)... Normal [facility] Glomerular filtration rate ( GFR) estimation/1.73 sq m using serum, plasma, or whole bOrdered By: Pascual Fletcher on 07-16-2024 GFR/1.73 sq M.predicted among non-blacks MDRD (S/P/Bld) [Vol rate/Area] 79 mL/min/{1.73_m2} Normal >60 [facility] Comment on above: mL/min/1.73m2 CKD-EP I Creatinine Equation (2020) Result Comment: mL/m in/1.73m2 CKD-EPI Creatinine Equation (2020) Performed By: #### L 3100.3425, L100.0100, L500.4050, L300.3900, L503.5510 #### [facility] [address] [place], [address] Hematocrit Auto (Bld) [Volum e fraction]Ordered By: Pascual Fletcher on 07-16-2024 Hematocrit (Bld) [Volume fraction] 47.1 % High 37-47 [facility] Hemoglobin measurementOrdere d By: Pascual Fletcher on 07-16-2024 Hemoglobin (Bld) [Mass/Vol] 15.9 g/dL High 12.0-15.0 [facility] Immature granulocytes/100 WB C Auto (Bld)Ordered By: Pascual Fletcher on 07-16-2024 Immature granulocytes/100 WBC (Bld) 0.300 % 0.0-0.9 [facility] Comment on above: IG% - Immature Granu locytes (promyelocytes, myelocytes and metamyelocytes) > 1% indicates that a LEFT SHIFT is Present. International normalized rat io (INR) calculationOrdered By: Pascual Fletcher on 07-16-2024 INR Coag (Bld) [Relative time] 1.0 {INR} [facility] Interpretation of serum or p lasma protein pattern by immunofixation (narrative resultOrdered By: Pascual Fletcher on 07-16-2024 Protein Fractions Immunofixation Art [Interp] Not Observed g/dL Not Observed [facility] MCV (mean corpuscular volume ) determinationOrdered By: Pascual Fletcher on 07-16-2024 MCV (RBC) [Entitic vol] 88.0 fL 81-99 [facility] Mean corpuscular hemoglobin (MCH) determinationOrdered By: Pascual Fletcher on 07-16-2024 MCH (RBC) [Entitic mass] 29.7 pg 27.0-32.0 [facility] Mean corpuscular hemoglobin concentration (MCHC) determinationOrdered By: Pascual Fletcher on 07-16-2024 MCHC (RBC) [Mass/Vol] 33.8 g/dL 32-36 [facility] Mean platelet volume determi nationOrdered By: Pascual Fletcher on 07-16-2024 Platelet mean volume (Bld) [Entitic vol] 10.5 fL 6.2-12.0 [facility] Monocyte percentageOrdered B y: Pascual Fletcher on 07-16-2024 Monocytes/100 WBC (Bld) 6.5 % 0-10 [facility] Neutrophil percentageOrdered By: Pascual Fletcher on 07-16-2024 Neutrophils/100 WBC (Bld) 69.2 % 47-70 [facility] No Panel InformationOrdered By: Pascual Fletcher on 07-16-2024 Addendum Document Comment . [facility] Comment on above: Protein electrophore sis scan will follow via computer,mail, or forensic analyst delivery.Performed at: [facility] [id number] Director: Juanito Boone PhD, Phone: [phone] Nucleated red blood cell per centageOrdered By: Pascual Fletcher on 07-16-2024 Nucleated RBC/100 WBC (Bld) [Ratio] 0 % 0-5 [facility] Platelet countOrdered By: Ra subhash Fletcher on 07-16-2024 Platelet count TNP [facility] Comment on above: Test not performed Platelet estimateOrdered By: Pascual Fletcher on 07-16-2024 Platelets LM Ql (Bld) A ADEQ [facility] Platelet morphologyOrdered B y: Pascual Fletcher on 07-16-2024 Platelet morphology finding Nom (Bld) CLUMPED [facility] Potassium measurement (mass/ volume)Ordered By: Pascual Fletcher on 07-16-2024 Potassium (Unsp spec) [Mass/Vol] 4.2 mmol/L 3.3-5.1 [facility] Comment on above: Hemolysis present, R esults could be affected. Prothrombin Time w/INRon INR Coag (PPP) [Relative time] 1.0 {INR} Normal [facility] Comment on above: Performed By: #### L 3100.3425, L100.0100, L500.4050, L300.3900, L503.5510 #### [facility] [address] [place], [place], [phone] Prothrombin timeOrdered By: Pascual Fletcher on 07-16-2024 PT Coag (PPP) [Time] 13.1 s Normal 11.7-14.9 [facility] Comment on above: Performed By: #### L 3100.3425, L100.0100, L500.4050, L300.3900, L503.5510 #### [facility] [address] [facility] [place], [place], [phone] RBC Auto (Bld) [#/Vol]Ordere d By: Pascual Fletcher on 07-16-2024 RBC (Bld) [#/Vol] 5.35 10*6/uL 4.2-5.4 [facility] Serum creatinine measurement (mass/volume)Ordered By: Pascual Fletcher on 07-16-2024 Creatinine [Mass/Vol] 0.76 mg/dL Normal 0.70-1.20 [facility] Comment on above: Performed By: #### L 3100.3425, L100.0100, L500.4050, L300.3900, L503.5510 #### [facility] [address] [place], [place], [phone] Serum globulin measurement ( mass/volume)Ordered By: Pascual Fletcher on 07-16-2024 Globulin (S) [Mass/Vol] 2.8 g/dL 2.2-3.9 [facility] Serum glucose measurement (m ass/volume)Ordered By: Pascual Feltcher on 07-16-2024 Glucose [Mass/Vol] 96 mg/dL Normal 70-99 [facility] Comment on above: Performed By: #### L 3100.3425, L100.0100, L500.4050, L300.3900, L503.5510 #### [facility] [address] [place], [place], [phone] Serum or plasma IgA measurem ent (mass/volume)Ordered By: Pascualethel Fletcher on 07-16-2024 IgA [Mass/Vol] 60 mg/dL Low 64-422 [facility] Serum or plasma IgG measurem ent (mass/volume)Ordered By: Pascual Fletcher on 07-16-2024 IgG [Mass/Vol] 716 mg/dL [phone] [facility] Serum or plasma alanine belle otransferase (ALT) measurementOrdered By: Pascual Fletcher on 07-16-2024 ALT [Catalytic activity/Vol] 9 U/L Normal <=34 [facility] Comment on above: Performed By: #### L 3100.3425, L100.0100, L500.4050, L300.3900, L503.5510 #### [facility] [address] [place], [address] Serum or plasma albumin chapis urement (mass/volume)Ordered By: Pascual Fletcher on 07-16-2024 Albumin [Mass/Vol] 4.2 g/dL Normal 3.4-4.8 [facility] Comment on above: Performed By: #### L 3100.3425, L100.0100, L500.4050, L300.3900, L503.5510 #### [facility] [address] [place], [place], [phone] (868) Serum or plasma albumin/glob ulin mass ratioOrdered By: Pascual Fletcher on 07-16-2024 Albumin/Globulin [Mass ratio] 1.6 {ratio} Normal 0.9-2.4 [facility] Comment on above: Performed By: #### L 3100.3425, L100.0100, L500.4050, L300.3900, L503.5510 #### [facility] [address] [place], [place], [phone] Serum or plasma alkaline mary sphatase measurementOrdered By: Pascual Fletcher on 07-16-2024 ALP [Catalytic activity/Vol] 73 U/L 35-104 [facility] Serum or plasma alpha 1 glob ulin measurement by electrophoresis (mass/volume)Ordered By: Pascual Fletcher on 07-16-2024 Alpha 1 globulin Elph [Mass/Vol] 0.3 g/dL 0.0-0.4 [facility] Alpha 1 globulin Elph [Mass/Vol] 0.8 g/dL 0.4-1.0 [facility] Serum or plasma beta globuli n measurement by electrophoresis (mass/volume)Ordered By: Pascual Fletcher on 07-16-2024 Beta globulin Elph [Mass/Vol] 1.0 g/dL 0.7-1.3 [facility] Serum or plasma calcium chapis urement (mass/volume)Ordered By: Pascual Fletcher on 07-16-2024 Calcium [Mass/Vol] 9.9 mg/dL Normal 7.6-11.0 [facility] Comment on above: Performed By: #### L 3100.3425, L100.0100, L500.4050, L300.3900, L503.5510 #### [facility] [address] [place], [place], [phone] Serum or plasma gamma globul in measurement by electrophoresis (mass/volume)Ordered By: Pascual Fletcher on 07-16-2024 Gamma globulin Elph [Mass/Vol] 0.7 g/dL 0.4-1.8 [facility] Serum or plasma immunoelectr ophoresis interpretation (nominal result)Ordered By: Pascual Fletcher on 07-16-2024 Interpretation IEP [Interp] Comment . [facility] Comment on above: No monoclonality det ected. Serum or plasma protein chapis urement (mass/volume)Ordered By: Pascual Fletcher on 07-16-2024 Protein [Mass/Vol] 6.6 g/dL 6.0-8.5 [facility] Serum or plasma urea nitroge n measurement (mass/volume)Ordered By: Pascual Fletcher on 07-16-2024 Urea nitrogen [Mass/Vol] 14 mg/dL Normal 4-19 [facility] Comment on above: Performed By: #### L 3100.3425, L100.0100, L500.4050, L300.3900, L503.5510 #### [facility] [address] [place], [place], [phone] Sodium levelOrdered By: Adria Burton on 07-16-2024 Sodium [Moles/Vol] 136 mmol/L Normal 133-145 [facility] Comment on above: Performed By: #### L 3100.3425, L100.0100, L500.4050, L300.3900, L503.5510 #### [facility] [address] [place], [place], [phone] (724) Total proteinOrdered By: Rolf Fletcher on 07-16-2024 Protein [Mass/Vol] 6.8 g/dL 5.9-8.4 [facility] Venous blood ammonia measure mentOrdered By: Pascual Fletcher on 07-16-2024 Ammonia (P) [Moles/Vol] 29.0 umol/L Normal 11-51 [facility] Comment on above: Performed By: #### L 3100.3425, L100.0100, L500.4050, L300.3900, L503.5510 #### [facility] [address] [place], [place], [phone] White blood cell (WBC) count Ordered By: Pascual Fletcher on 07-16-2024 WBC (Bld) [#/Vol] 6.0 10*3/uL 4.4-11.0 [facility] /Irina 06-30-2024 /DONA [facility] [address] [place] [address] OFFICE VISIT Date of Service: 06/30/24 MR#: [id number] Acct: [id number] Name: EDER SEVERINO Rep #: [id number] : 1945 Provider: Dr. Katarina dias MD Age/Sex: 79/F Location: [facility] [place] Status: Signed Intake Vital Signs 02/11/24 08:39 06/30/24 14:34 Height 5 ft 5 in 5 ft 5 in Weight: 157 lb 2 oz 153 lb 6 oz BMI 26.1 25.5 BP 150/78 H 181/71 H Blood Pressure Location Rt brachial Lt brachial Position Sitting Sitting Respiration 16 16 Pulse 63 63 Pulse Source Monitor Monitor Temp 98.2 F 98.4 F Temp Source Temporal Temporal Pulse Oximetry (%) 95 97 Oxygen Delivery Method room air room air Intake Visit Reasons: Annual/Physical Chief Complaint: Annual/Physical Lead Business Analyst Required: No Accompanied by: Is patient in pain?: No Allergies aspirin Allergy (Mild, Verified 06/30/24 14:26) unknown calcium carbonate (From Tums) Allergy (Mild, Verified 06/30/24 14:26) Other estradiol (From Vagifem) Allergy (Mild, Verified 06/30/24 14:26) unknown latanoprost (From Xalatan) Allergy (Mild, Verified 06/30/24 14:26) unknown miconazole (From Monistat 3) Allergy (Mild, Verified 06/30/24 14:26) burining, headache, nausea phenazopyridine Allergy (Mild, Verified 06/30/24 14:26) Other propoxyphene (From Darvon) Allergy (Mild, Verified 06/30/24 14:26) Other ranitidine (From Zantac) Allergy (Mild, Verified 06/30/24 14:26) unknown skin cleanser combination no.17 (From Monistat 3) Allergy (Mild, Verified 06/30/24 14:26) burining, headache, nausea tioconazole (From Monistat 1 (tioconazole)) Allergy (Mild, Verified 06/30/24 14:26) burning, headache, nausea amoxicillin Allergy (Verified 06/30/24 14:26) Anaphylaxis ibuprofen (From Advil) Allergy (Verified 06/30/24 14:26) Other indomethacin (From Indocin) Allergy (Verified 06/30/24 14:26) Anaphylaxis indomethacin sodium (From Indocin) Allergy (Verified 06/30/24 14:26) Anaphylaxis prednisolone Allergy (Verified 06/30/24 14:26) Swelling Sulfa (Sulfonamide Antibiotics) Allergy (Verified 06/30/24 14:26) Anaphylaxis barium sulfate Adverse Reaction (Verified 06/30/24 14:26) Rash nitrofurantoin macrocrystalline (From Macrodantin) Adverse Reaction (Verified 06/30/24 14:26) Other prednisone Adverse Reaction (Verified 06/30/24 14:26) Other progesterone Adverse Reaction (Verified 06/30/24 14:26) Other propoxyphene HCl (From Darvon) Adverse Reaction (Verified 06/30/24 14:26) Other Medications ???Medication ???Instructions ???Recorded ???Confirmed ???Type L.acidophilus-L.plantar um-B.animalis-B.longum 1 ea PO DAILY 5 06/30/24 History 2 billion cell capsule diphenhydramine HCl 25 mg capsule 25 mg PO BID PRN PRN Allergies 06/30/24 History biotin 1 mg capsule 2,500 mcg PO QDAY 10/17/17 5 History Nattokinase 2,000 mg PO DAILY 12/05/20 5 History lutein 20 mg capsule 20 mg PO DAILY 06/10/22 06/30/24 H istory magnesium amino acid chelate 100 100 mg PO DAILY 12/09/22 06/30/24 History mg tablet phlebotomies for hemachromatosis See Rx Instructions IM .COMPLEX 06/30/24 History albuterol sulfate 90 mcg/actuation 2 puff inhalation Q4H PRN PRN 06/30/24 Rx aerosol inhaler Wheezing #8.5 grams quercetin 500 mg capsule mg PO 06/30/24 06/30/24 History tafluprost (PF) 0.0015 % eye drops 1 drp ophthalmic (eye) QHS 06/3006/30/24 History in a dropperette Have you fallen in the past year?: No PFSH Medical History History of thyroid nodule Secondary polycythemia Oral allergy syndrome Upper respiratory infection Suspected COVID-19 virus infection Neuropathy Hives Temporal arteritis Ductal carcinoma in situ (DCIS) of breast Gallstones Thyroid nodule History of pneumonia as a child GERD (gastroesophageal reflux disease) Vegan diet Arthritis Acute urticaria Osteopenia Macular degeneration Hemochromatosis Glaucoma Cataract Asthma Allergic rhinitis Acid reflux Surgical History H/O laparoscopy History of lumpectomy of left breast History of cataract surgery History of cholecystectomy Family History Sister Breast cancer Mother Diabetes Myocardial infarction, Onset Age: 69 Arthritis Liver disease Osteoporosis Father Myocardial infarction, Onset Age: 75 Brother Myocardial infarction, Onset Age: 44 Parkinsons Other Cancer Social History Smoking Status: Never smoker alcohol intake: never substance use type: does not use what type of physical activity do you part (more content not included)... Normal [facility] OCT OPTIC NERVE CIRRUS OU (B OTH EYES)on 06-16-2024 [facility] Radiology Study observation (narrative) [facility] 25(OH)D3 [facility]con 2024 25-hydroxyvitamin D3 [Mass/Vol] 115.0 ng/mL High 31.0-80.0 [facility] Comment on above: Order Comment: Speci men Type: BLOOD SPECIMENOrdering Facility: [facility] Address: [address] [place] [id number] Result Comment: Clas sification of 25 [place] Vitamin D status: Deficiency/Insufficiency: < or = 30 ng/ml. Sufficiency/Optimal Levels: 31-80 ng/mL Toxicity: > 100 ng/mL. Test performed by chemiluminescent immunoassay. Performed By: #### 1 989-3 ####[facility] LABCLIA [id number] [place] [address] [place] CNOVon 05-27-2024 CNOV Office Visit (MED[facility] ) EDER SEVERINO ([id number]) 1945 F Date Time Provider Department 05/27/24 2:00 PM AIR[facility] During your visit today, we recorded the following information about you: Pulse Blood pressure Weight Height 68/minute 159/55 68.8 kg 1.651 m Airam Alvarado APRN.EQUESTRIAN TRAINER 05/27/2024 3:14 PM Signed FUNCTIONAL MEDICINE INITIAL ASSESSMENT Patient: Eder Severino ALLERGIES Allergen Reactions Sulfa (Sulfonamide * Anaphylaxis [place] Seed Rash Advil [Ibuprofen] Intolerance along with any non-steroidal anti- inflammatory Amoxicillin Intolerance Aspirin skin reaction- redness and burning Barium Iodide Rash Barium Sulfate Rash Darvon [Propoxyphen* Mental Status Change blacked out with postural changes Indocin [Indomethac* Intolerance Macrodantin [Nitrof* neuropathy Monistat 1 [Tiocona* headache and vaginal burning Monistat 3 [Miconaz* Intolerance vaginal burning, headache,nausea, relieved with benedryl Prednisolone Swelling swelling side of face, facial itching, reddened eye Prednisone dose related Progesterone migraine Psoriosis Lotion [O* Rash Tree And Shrub Poll* Other: See Comments Tums [Calcium Carbo* Itchy eyes Uristat [Phenazopyr* Intolerance Vagifem [Estradiol] neuropathy Xalatan [Latanopros* Shortness of Breath chest pain Zantac [Ranitidine * Burning in Legs, headache , facial Twitching, jittery Current Outpatient Medications Medication Sig Dispense Refill quercetin 500 mg cap Take 500-750 mg by mouth two times a day. 1-2 or twice daily LUTEIN-ZEAXANTHIN ORAL Take 10 mg by mouth once daily. Bacillus coagulans/inulin (PROBIOTIC WITH PREBIOTIC ORAL) Take 1 capsule by mouth once daily. OTC PRODUCT [place]- r/t [facility] study MAGNESIUM ORAL Take 300 mg by mouth once daily. 1-2 once daily Biotin 2,500 mcg cap Take 2,500 mg by mouth once daily. OTC PRODUCT Take 100 mg by mouth twice daily. Nattokinase 100mg: Take one(1) tablet daily. 0 No current facility-administered medications for this visit. ACTIVE PROBLEM LIST Allergic Rhinitis, Cause Unspecified Esophageal Reflux Anxiety State Postmenopausal Atrophic Vaginitis Disorders of Iron Metabolism Blood in Stool Other Psoriasis OSTEOPENIA Urticaria, Unspecified Asthma Allergy Disorder of Iron Metabolism Vitamin D Deficiency Nocturia Hereditary Hemochromatosis (Hcc) Globus Sensation H/O Polymyalgia Rheumatica PAST MEDICAL HISTORY Diagnosis Date Allergic rhinitis due to other allergen Anxiety state, unspecified Blood dyscrasia Cholelithiasis Disorder of bone and cartilage, unspecified arthritis Disorders of iron metabolism hemochromatosis Ductal carcinoma (HCC) Esophageal reflux Gastroesophageal reflux Gallbladder disease 2016 H/O polymyalgia rheumatica 02/12/2018 Mental disorder Migraine, unspecified, with intractable migraine, so stated, without mention of status migrainosus Osteoarthrosis, unspecified whether generalized or localized, other specified sites Other diseases of trachea and bronchus, not elsewhere classified Other psoriasis PMH - PAST MEDICAL HISTORY OF infection in finger PAST SURGICAL HISTORY Procedure Laterality Date BREAST LUMPECTOMY HX Left 03/2018 CATARACT EXTRACTION HX 01/2014, 04/2014 bilateral COLONOSCOPY 07/18/2014 Stella - diverticulosis, otherwise normal COLONOSCOPY FLX DX W/COLLJ SPEC WHEN PFRMD 2006 Colonoscopy DILATION AND CURETTAGE DXAND/THER NONOBSTETRIC Dilation AND curettage with misc ESOPHAGOGASTRODUODENOSC OPY TRANSORAL DIAGNOSTIC 11/12/2016 EGD LAPS ABD PRTMANDOMENTUM DX W/WO SPEC BR/WA SPX 1974 Laparoscopy NOSE SURGERY HX 2011 trauma - PAST SURGICAL HISTORY OF fall 2005 endoscopy PAST SURGICAL HISTORY OF , , 09/20/96 EMB PAST SURGICAL HISTORY OF lanced finger and drained PAST SURGICAL HISTORY OF 02/11/2017 gallbladder removal - single site surgery performed at [facility] by Dr. Castro - under thoracic epidural and sedation. STRTCTC LOCLZJ GID BREAST BX/NEEDLE PLACEMENT Right 02/16/2018 Rt stereotactic vaccuum assisted core biopsy Family History Problem Relation Age of Onset Hypertension Mother Diabetes Mother Heart Mother Hypertension Father Heart Father Heart disease Brother Breast Cancer Sister develpoed at 74 Diabetes Sister Heart disease Sister other (lung cancer) Brother Social History Tobacco Use Smoking status: Never Smokeless tobacco: Never Vaping Use Vaping status: Never Used Substance Use Topics Alcohol use: No Drug use: No Patient Goals: New to provider visit today. Accompanied by . Lives in [place] HPI: This is an 79yo female presenting for a functional medicine consult with complaints of: Brain fog x 1 year Sometimes good days, other days really (more content not included)... Normal [facility] CBC W Auto Differential pane l (Bld)on 04-26-2024 Basophils (Bld) [#/Vol] 0.06 10*3/uL Normal <0.11 [facility] Comment on above: Order Comment: Speci men Type: BLOOD SPECIMENOrdering Facility: [facility] Address: [address] [place] [address] Performed By: #### 5 7021-8 ####[facility] MILLWIDLIA [id number] [place] [address] [place] Basophils/100 WBC (Bld) 1.2 % Normal C [facility] Comment on above: Order Comment: Speci men Type: BLOOD SPECIMENOrdering Facility: [facility] Address: [address] [place] [address] Performed By: #### 5 7021-8 ####[facility]ENTERLIA [id number] [place] [address] [place] Differential cell count method Nom (Bld) Auto Normal [facility] Comment on above: Order Comment: Speci men Type: BLOOD SPECIMENOrdering Facility: [facility] Address: [address] [place] [address] Performed By: #### 5 7021-8 ####[facility] MILLWNCLIA [id number] [place] [address] [place] Eosinophils (Bld) [#/Vol] 0.09 10*3/uL Normal <0.46 [facility] Comment on above: Order Comment: Speci men Type: BLOOD SPECIMENOrdering Facility: [facility] Address: [address] [place] [address] Performed By: #### 5 7021-8 ####[facility]ITALNCLIA [id number] [place] [address] [place] Eosinophils/100 WBC (Bld) 1.8 % Normal [facility] Comment on above: Order Comment: Speci men Type: BLOOD SPECIMENOrdering Facility: [facility] Address: [address] [place] [address] Performed By: #### 5 7021-8 ####[facility] HOSPITALNCA [id number] [place] [address] [place] Erythrocyte distribution width (RBC) [Ratio] 12.3 % Normal 11.5-15.0 [facility] Comment on above: Order Comment: Speci men Type: BLOOD SPECIMENOrdering Facility: [facility] Address: [address] [place] [address] Performed By: #### 5 7021-8 ####[facility] HOSPITALNCSHRINERS H[facility]ALS FOR CHIL[facility]EN [id number] [place] [address] [place] Hematocrit (Bld) [Volume fraction] 44.8 % Normal 36.0-46.0 [facility] Comment on above: Order Comment: Speci men Type: BLOOD SPECIMENOrdering Facility: [facility] Address: [address] [place] [address] Performed By: #### 5 7021-8 ####[facility] [id number] [place] [address] [place] Hemoglobin (Bld) [Mass/Vol] 15.6 g/dL High 11.5-15.5 [facility] Comment on above: Order Comment: Speci men Type: BLOOD SPECIMENOrdering Facility: [facility] Address: [address] [place] [address] Performed By: #### 5 7021-8 ####[facility] [id number] [place] [address] [place] Immature granulocytes (Bld) [#/Vol] 10*3/uL Normal <0.10 [facility] Comment on above: Order Comment: Speci men Type: BLOOD SPECIMENOrdering Facility: [facility] Address: [address] [place] [address] Performed By: #### 5 7021-8 ####[facility] HOSPITALMACK [id number] [address] STATES [facility] Immature granulocytes/100 WBC (Bld) 0.2 % Normal [facility] Comment on above: Order Comment: Speci men Type: BLOOD SPECIMENOrdering Facility: [facility] Address: [address] [place] [address] Performed By: #### 5 7021-8 ####[facility] [id number] [place] [address] [place] Lymphocytes (Bld) [#/Vol] 1.19 10*3/uL Normal 1.00-4.00 [facility] Comment on above: Order Comment: Speci men Type: BLOOD SPECIMENOrdering Facility: [facility] Address: [address] [place] [address] Performed By: #### 5 7021-8 ####[facility] [id number] [address] STATES [facility] Lymphocytes/100 WBC (Bld) 23.8 % Normal [facility] Comment on above: Order Comment: Speci men Type: BLOOD SPECIMENOrdering Facility: [facility] Address: [address] [place] [address] Performed By: #### 5 7021-8 ####[facility] [id number] [place] [address] [place] MCH (RBC) [Entitic mass] 30.3 pg Normal 26.0-34.0 [facility] Comment on above: Order Comment: Speci men Type: BLOOD SPECIMENOrdering Facility: [facility] Address: [address] [place] [address] Performed By: #### 5 7021-8 ####[facility]ITALNCLIA [id number] [place] [address] [place] MCHC (RBC) [Mass/Vol] 34.8 g/dL Normal 30.5-36.0 [facility] Comment on above: Order Comment: Speci men Type: BLOOD SPECIMENOrdering Facility: [facility] Address: [address] [place] [address] Performed By: #### 5 7021-8 ####[facility]OS[facility]ITALNCLI [id number] [place] [address] [place] MCV (RBC) [Entitic vol] 87.0 fL Normal 80.0-100.0 C [facility] Comment on above: Order Comment: Speci men Type: BLOOD SPECIMENOrdering Facility: [facility] Address: [address] [place] [address] Performed By: #### 5 7021-8 ####[facility] [id number] [place] [address] [place] Monocytes (Bld) [#/Vol] 0.32 10*3/uL Normal <0.87 [facility] Comment on above: Order Comment: Speci men Type: BLOOD SPECIMENOrdering Facility: [facility] Address: [address] [place] [address] Performed By: #### 5 7021-8 ####[facility]ITALA [id number] [place] [address] [place] Monocytes/100 WBC (Bld) 6.4 % Normal C [facility] Comment on above: Order Comment: Speci men Type: BLOOD SPECIMENOrdering Facility: [facility] Address: [address] [place] [address] Performed By: #### 5 7021-8 ####[facility]ITALNCLIA [id number] [place] [address] [place] Neutrophils (Bld) [#/Vol] 3.33 10*3/uL Normal 1.45-7.50 [facility] Comment on above: Order Comment: Speci men Type: BLOOD SPECIMENOrdering Facility: [facility] Address: [address] [place] [address] Performed By: #### 5 7021-8 ####[facility] H[facility]PITALWIDLIA [id number] [place] [address] [place] Neutrophils/100 WBC (Bld) 66.6 % Normal [facility] Comment on above: Order Comment: Speci men Type: BLOOD SPECIMENOrdering Facility: [facility] Address: [address] [place] [address] Performed By: #### 5 7021-8 ####[facility] [id number] [place] [address] [place] Nucleated RBC (Bld) [#/Vol] 10*3/uL Normal <0.01 [facility] Comment on above: Order Comment: Speci men Type: BLOOD SPECIMENOrdering Facility: [facility] Address: [address] [place] [address] Performed By: #### 5 7021-8 ####[facility]ITALA [id number] [place] [address] [place] Nucleated RBC/100 WBC (Bld) [Ratio] 0.0 /100 WBC Normal [facility] Comment on above: Order Comment: Speci men Type: BLOOD SPECIMENOrdering Facility: [facility] Address: [address] [place] [address] Performed By: #### 5 7021-8 ####[facility]A [id number] [place] [address] [place] Platelet mean volume (Bld) [Entitic vol] 9.5 fL Normal 9.0-12.7 [facility] Comment on above: Order Comment: Speci men Type: BLOOD SPECIMENOrdering Facility: [facility] Address: [address] [place] [address] Performed By: #### 5 7021-8 ####[facility] LIZZIENCYAZMIN [id number] [place] [place] [address] [place] Platelets (Bld) [#/Vol] 188 10*3/uL Normal 150-400 [facility] Comment on above: Order Comment: Speci men Type: BLOOD SPECIMENOrdering Facility: [facility] Address: [address] [place] [address] Performed By: #### 5 7021-8 ####[facility] EUGENIENCLIA [id number] [place] [address] [place] RBC (Bld) [#/Vol] 5.15 10*6/uL Normal 3.90-5.20 [facility] Comment on above: Order Comment: Speci men Type: BLOOD SPECIMENOrdering Facility: [facility] Address: [address] [place] [address] Performed By: #### 5 7021-8 ####[facility] AVELINAASHLANDNCLIA [id number] [place] [address] [place] WBC (Bld) [#/Vol] 5.00 10*3/uL Normal 3.70-11.00 [facility] Comment on above: Order Comment: Speci men Type: BLOOD SPECIMENOrdering Facility: [facility] Address: [address] [place] [address] Performed By: #### 5 7021-8 ####[facility]ITALNCLIA [id number] [place] [address] [place] Ferritin SerPl-mCncon 2024 Ferritin [Mass/Vol] 44.3 ng/mL Normal 14.7-205.1 [facility] Comment on above: Order Comment: Speci men Type: BLOOD SPECIMENOrdering Facility: [facility] Address: [address], [place] [address] Performed By: #### 2 276-4 ####[facility] [id number] [place] [id number] [place] CNOVon 04-19-2024 CNOV Office Visit (NECVS8 ) EDER SEVERINO ([id number]) 1945 F Date Time Provider Department 04/19/24 4:30 PM OLI AVERY NECVS8 During your visit today, we recorded the following information about you: Temperature Pulse Respiration Blood pressure 98 degrees 83/minute 14/minute 158/60 Weight Height 65.8 kg 1.651 m Oli Avery MD 04/20/2024 10:32 AM Signed [facility] Established Visit Consultation is requested by: No referring provider defined for this encounter. PCP: Katarina Medina [address] [place] [id number] [facility] History of Event: I am seeing Mrs. Severino as follow-up. She is a 78 year-old woman, with no known vascular risk factors, who presented to my clinic in September 2023 for evaluation of incidental remote infarcts found on a brain MRI obtained for assessment of progressively worsening word-finding difficulty. Her reports some degree of memory changes as well. Recently, she's been very anxious about multiple health concerns, including macular degeneration and allergies. History goes back to when she had COVID-19 infection twice, and after each time had brain fog. After her second COVID-19 infection, this kept on getting worse. She denies memory loss, but rather more difficulty finding specific words. MRI brain without bharat showed no acute process, mild WM disease reflective of chronic microvascular ischemic, small remote L occipital cortical infarct and small remote cerebellar infarct. My impression at the time: Mrs. Severino is a 78 year-old woman, with no known vascular risk factors, who presents to my clinic today for evaluation of incidental remote infarcts found on a brain MRI obtained for assessment of word-finding difficulty. 1. Mild cognitive impairment (you scored 23/30 on MoCA testing) Your thyroid and vitamin B12 levels were normal Your anxiety is probably contributing to your symptoms Your MRI does not show significant white matter disease or atrophy (shrinking of the brain) I would recommend: Aerobic exercise (anything that makes you sweat or lifts your heart rate) 30 minutes 5 times a week Referral to behavioral therapy for management of anxiety 2. Coincidental tiny old strokes on your MRI Blood tests for lipid panel and hemoglobin A1c We will be getting your records from [facility] and we will let you know if there is any more workup we recommend I do not recommend starting aspirin since you're already on a blood thinner Follow-up with us in 6 months (virtually) Interval events: - LDL-C 97, hba1c 5.1% - Has been exercising on the treadmill for 30 minutes 4 times a week - Has been receiving cognitive behavioral therapy for anxiety which has made her feel great - Has been sleeping up to 7-8 hours every night Antiplatelets/Anticoagu lants: - Nattokinase Residual Deficits: Cognitive impairments Current PT/OT/ST: None Current Living Situation: Home with spouse Current use of a mobility aid for walking/getting around: None Do you have any planned upcoming surgeries or dental procedures? No PAST MEDICAL HISTORY Diagnosis Date Allergic rhinitis due to other allergen Anxiety state, unspecified Blood dyscrasia Cholelithiasis Disorder of bone and cartilage, unspecified arthritis Disorders of iron metabolism hemochromatosis Ductal carcinoma (HCC) Esophageal reflux Gastroesophageal reflux Gallbladder disease 2016 H/O polymyalgia rheumatica 02/12/2018 Mental disorder Migraine, unspecified, with intractable migraine, so stated, without mention of status migrainosus Osteoarthrosis, unspecified whether generalized or localized, other specified sites Other diseases of trachea and bronchus, not elsewhere classified Other psoriasis PMH - PAST MEDICAL HISTORY OF infection in finger PAST SURGICAL HISTORY Procedure Laterality Date BREAST LUMPECTOMY HX Left 03/2018 CATARACT EXTRACTION HX 01/2014, 04/2014 bilateral COLONOSCOPY 07/18/2014 Stella - diverticulosis, otherwise normal COLONOSCOPY FLX DX W/COLLJ SPEC WHEN PFRMD 2006 Colonoscopy DILATION AND CURETTAGE DXAND/THER NONOBSTETRIC Dilation AND curettage with misc ESOPHAGOGASTRODUODENOSC OPY TRANSORAL DIAGNOSTIC 11/12/2016 EGD LAPS ABD PRTMANDOMENTUM DX W/WO SPEC BR/WA SPX 1974 Laparoscopy NOSE SURGERY HX 2011 trauma - PAST SURGICAL HISTORY OF fall 2005 endoscopy PAST SURGICAL HISTORY OF , , 09/20/96 EMB PAST SURGICAL HISTORY OF lanced finger and drained PAST SURGICAL HISTORY OF 02/11/2017 gallbladder removal - single site surgery performed at [facility] by Dr. Castro - under thoracic epidural and sedation. STRTCTC LOCLZJ GID BREAST BX/NEEDLE PLACEMENT Right 02/16/2018 Rt stereotactic vaccuum assisted core biopsy FAMILY HISTORY (more content not included)... Normal [facility] 25(OH)D3 SerPl-ncon 2024 25-hydroxyvitamin D3 [Mass/Vol] 125.0 ng/mL High 31.0-80.0 [facility] Comment on above: Order Comment: Speci men Type: BLOOD SPECIMENOrdering Facility: [facility] Address: [address] [place] [address] Performed By: #### 1 989-3 ####[facility] LABCLIA [id number] [place] [address] [place] MR/BMS.IRWINBon 02-11-2024 MR/BMS.IMB [facility] [address] [place] [id number] OFFICE VISIT Date of Service: 02/11/24 MR#: [id number] Acct: [id number] Name: EDER SEVERINO Rep #: [id number] : 1945 Provider: Dr. Katarina dias MD Age/Sex: 78/F Location: [facility] Status: Signed Intake Vital Signs 11/13/23 07:57 02/11/24 08:39 Height 5 ft 5 in 5 ft 5 in Weight: 157 lb 2 oz BMI 26.1 BP 150/78 H Blood Pressure Location Rt brachial Position Sitting Respiration 16 Pulse 63 Pulse Source Monitor Temp 98.2 F Temp Source Temporal Pulse Oximetry (%) 95 Oxygen Delivery Method room air Intake Visit Reasons: 4 M FU Chief Complaint: 4 m fu Lead Business Analyst Required: No Accompanied by: Is patient in pain?: Yes (L arm from mammogram ) Pain scale (1-10): 2 Allergies aspirin Allergy (Mild, Verified 02/11/24 08:26) unknown calcium carbonate (From Tums) Allergy (Mild, Verified 02/11/24 08:26) Other estradiol (From Vagifem) Allergy (Mild, Verified 02/11/24 08:26) unknown latanoprost (From Xalatan) Allergy (Mild, Verified 02/11/24 08:26) unknown miconazole (From Monistat 3) Allergy (Mild, Verified 02/11/24 08:26) burining, headache, nausea phenazopyridine Allergy (Mild, Verified 02/11/24 08:26) Other propoxyphene (From Darvon) Allergy (Mild, Verified 02/11/24 08:26) Other ranitidine (From Zantac) Allergy (Mild, Verified 02/11/24 08:26) unknown skin cleanser combination no.17 (From Monistat 3) Allergy (Mild, Verified 02/11/24 08:26) burining, headache, nausea tioconazole (From Monistat 1 (tioconazole)) Allergy (Mild, Verified 02/11/24 08:26) burning, headache, nausea amoxicillin Allergy (Verified 02/11/24 08:26) Anaphylaxis ibuprofen (From Advil) Allergy (Verified 02/11/24 08:26) Other indomethacin (From Indocin) Allergy (Verified 02/11/24 08:26) Anaphylaxis indomethacin sodium (From Indocin) Allergy (Verified 02/11/24 08:26) Anaphylaxis prednisolone Allergy (Verified 02/11/24 08:26) Swelling Sulfa (Sulfonamide Antibiotics) Allergy (Verified 02/11/24 08:26) Anaphylaxis barium sulfate Adverse Reaction (Verified 02/11/24 08:26) Rash nitrofurantoin macrocrystalline (From Macrodantin) Adverse Reaction (Verified 02/11/24 08:26) Other prednisone Adverse Reaction (Verified 02/11/24 08:26) Other progesterone Adverse Reaction (Verified 02/11/24 08:26) Other propoxyphene HCl (From Darvon) Adverse Reaction (Verified 02/11/24 08:26) Other Medications ???Medication ???Instructions ???Recorded ???Confirmed ???Type L.acidophilus-L.plantar um-B.animalis-B.longum 1 ea PO DAILY 04/26/14 02/11/24 History 2 billion cell capsule diphenhydramine HCl 25 mg capsule 25 mg PO BID PRN PRN Allergies 07/18/14 02/11/24 History biotin 1 mg capsule 2,500 mcg PO QDAY 10/17/17 02/11/24 History Nattokinase 2,000 mg PO DAILY 12/05/20 02/11/24 History cholecalciferol (vitamin D3) 125 10,000 unit PO DAILY 12/20/21 02/11/24 History mcg (5,000 unit) capsule lutein 20 mg capsule 20 mg PO DAILY 06/10/22 02/11/24 History magnesium amino acid chelate 100 100 mg PO DAILY 12/09/22 02/11/24 History mg tablet phlebotomies for hemachromatosis See Rx Instructions IM .COMPLEX 12/09/22 02/11/24 History albuterol sulfate 90 mcg/actuation 2 puff inhalation Q4H PRN PRN 11/13/23 02/11/24 Rx aerosol inhaler Wheezing #8.5 grams Have you fallen in the past year?: No PFSH Medical History History of thyroid nodule Secondary polycythemia Oral allergy syndrome Upper respiratory infection Suspected COVID-19 virus infection Neuropathy Hives Temporal arteritis Ductal carcinoma in situ (DCIS) of breast Gallstones Thyroid nodule History of pneumonia as a child GERD (gastroesophageal reflux disease) Vegan diet Arthritis Acute urticaria Osteopenia Macular degeneration Hemochromatosis Glaucoma Cataract Asthma Allergic rhinitis Acid reflux Surgical History H/O laparoscopy History of lumpectomy of left breast History of cataract surgery History of cholecystectomy Family History Sister Breast cancer Mother Diabetes Myocardial infarction, Onset Age: 69 Arthritis Liver disease Osteoporosis Father Myocardial infarction, Onset Age: 75 Brother Myocardial infarction, Onset Age: 44 Parkinsons Other Cancer Social History Smoking Status: Never smoker alcohol intake: never substance use type: does not use what type of physical activity do you participate in: walking frequency: 3-4 times per week HPI HPI Chief Complaint: 4 m fu Details: EDER SEVERINO, is a 78 F who presen (more content not included)... Normal [facility] CBC W Auto Differential pane l (Bld)on 02-02-2024 Basophils (Bld) [#/Vol] 0.04 10*3/uL [facility] Basophils/100 WBC (Bld) 0.6 % [facility] Differential cell count method Nom (Bld) Auto [facility] Eosinophils (Bld) [#/Vol] 0.10 10*3/uL [facility] Eosinophils/100 WBC (Bld) 1.5 % [facility] Erythrocyte distribution width (RBC) [Ratio] 12.9 % 11.5 - 15.0 % [facility] Hematocrit (Bld) [Volume fraction] 44.5 % 36.0 - 46.0 % [facility] Hemoglobin (Bld) [Mass/Vol] 15.3 g/dL 11.5 - 15.5 g/dL [facility] Immature granulocytes (Bld) [#/Vol] [facility] Immature granulocytes/100 WBC (Bld) 0.2 % [facility] Lymphocytes (Bld) [#/Vol] 1.33 10*3/uL [facility] Lymphocytes/100 WBC (Bld) 20.4 % [facility] MCH (RBC) [Entitic mass] 30.1 pg 26. 0 - 34.0 pg [facility] MCHC (RBC) [Mass/Vol] 34.4 g/dL 30.5 - 36.0 g/dL [facility] MCV (RBC) [Entitic vol] 87.6 fL 80.0 - 100.0 fL [facility] Monocytes (Bld) [#/Vol] 0.46 10*3/uL [facility] Monocytes/100 WBC (Bld) 7.0 % [facility] Neutrophils (Bld) [#/Vol] 4.59 10*3/uL [facility] Neutrophils/100 WBC (Bld) 70.3 % [facility] Nucleated RBC (Bld) [#/Vol] NINF [facility] Nucleated RBC/100 WBC (Bld) [Ratio] 0.0 % /100 WBC [facility] Platelet mean volume (Bld) [Entitic vol] 9.8 fL 9.0 - 12.7 fL [facility] Platelets (Bld) [#/Vol] 196 10*3/uL [facility] RBC (Bld) [#/Vol] 5.08 10*6/uL 3.90 - 5.2 0 m/uL [facility] WBC (Bld) [#/Vol] 6.53 10*3/uL [facility] Basophils (Bld) [#/Vol] 0.04 10*3/uL Normal <0.11 [facility] Comment on above: Order Comment: Speci men Type: BLOOD SPECIMENOrdering Facility: [facility] Address: [address] [place] [address] Performed By: #### 5 7021-8 ####[facility] [id number] [place] [address] [place] Basophils/100 WBC (Bld) 0.6 % Normal C [facility] Comment on above: Order Comment: Speci men Type: BLOOD SPECIMENOrdering Facility: [facility] Address: [address] [place] [address] Performed By: #### 5 7021-8 ####[facility] [id number] [place] [address] [place] Differential cell count method Nom (Bld) Auto Normal [facility] Comment on above: Order Comment: Speci men Type: BLOOD SPECIMENOrdering Facility: [facility] Address: [address] [place] [address] Performed By: #### 5 7021-8 ####[facility] CENTERLIA [id number] [place] [address] [place] Eosinophils (Bld) [#/Vol] 0.10 10*3/uL Normal <0.46 [facility] Comment on above: Order Comment: Speci men Type: BLOOD SPECIMENOrdering Facility: [facility] Address: [address] [place] [address] Performed By: #### 5 7021-8 ####[facility] SHANIQUE [id number] [place] [address] [place] Eosinophils/100 WBC (Bld) 1.5 % Normal [facility] Comment on above: Order Comment: Speci men Type: BLOOD SPECIMENOrdering Facility: [facility] Address: [address] [place] [address] Performed By: #### 5 7021-8 ####[facility] AVELINADarleneDIMITRISYAZMIN [id number] [place] [address] [place] Erythrocyte distribution width (RBC) [Ratio] 12.9 % Normal 11.5-15.0 [facility] Comment on above: Order Comment: Speci men Type: BLOOD SPECIMENOrdering Facility: [facility] Address: [address] [place] [address] Performed By: #### 5 7021-8 ####[facility] AVELINAASHLANDDIMITRISYAZMIN [id number] [place] [address] [place] Hematocrit (Bld) [Volume fraction] 44.5 % Normal 36.0-46.0 [facility] Comment on above: Order Comment: Speci men Type: BLOOD SPECIMENOrdering Facility: [facility] Address: [address] [place] [address] Performed By: #### 5 7021-8 ####[facility] AVELINAASHLANDDIMITRISLIA [id number] [place] [address] [place] Hemoglobin (Bld) [Mass/Vol] 15.3 g/dL Normal 11.5-15.5 [facility] Comment on above: Order Comment: Speci men Type: BLOOD SPECIMENOrdering Facility: [facility] Address: [address] [place] [address] Performed By: #### 5 7021-8 ####[facility] MILLWNCLIA [id number] [place] [address] [place] Immature granulocytes (Bld) [#/Vol] 10*3/uL Normal <0.10 [facility] Comment on above: Order Comment: Speci men Type: BLOOD SPECIMENOrdering Facility: [facility] Address: [address] [place] [address] Performed By: #### 5 7021-8 ####[facility] CENTERLIA [id number] [place] [address] [place] Immature granulocytes/100 WBC (Bld) 0.2 % Normal [facility] Comment on above: Order Comment: Speci men Type: BLOOD SPECIMENOrdering Facility: [facility] Address: [address] [place] [address] Performed By: #### 5 7021-8 ####[facility] CENTERLIA [id number] [place] [address] [place] Lymphocytes (Bld) [#/Vol] 1.33 10*3/uL Normal 1.00-4.00 [facility] Comment on above: Order Comment: Speci men Type: BLOOD SPECIMENOrdering Facility: [facility] Address: [address] [place] [address] Performed By: #### 5 7021-8 ####[facility]ENTERLIA [id number] [place] [address] [place] Lymphocytes/100 WBC (Bld) 20.4 % Normal [facility] Comment on above: Order Comment: Speci men Type: BLOOD SPECIMENOrdering Facility: [facility] Address: [address] [place] [address] Performed By: #### 5 7021-8 ####[facility]OS[facility]ITALNCLIA [id number] [place] [address] [place] MCH (RBC) [Entitic mass] 30.1 pg Normal 26.0-34.0 [facility] Comment on above: Order Comment: Speci men Type: BLOOD SPECIMENOrdering Facility: [facility] Address: [address] [place] [address] Performed By: #### 5 7021-8 ####[facility] HOSPITALNCSHAHRZADA [id number] [place] [address] [place] MCHC (RBC) [Mass/Vol] 34.4 g/dL Normal 30.5-36.0 [facility] Comment on above: Order Comment: Speci men Type: BLOOD SPECIMENOrdering Facility: [facility] Address: [address] [place] [address] Performed By: #### 5 7021-8 ####[facility] HOSPITALNCYAZMIN [id number] [place] [address] [place] MCV (RBC) [Entitic vol] 87.6 fL Normal 80.0-100.0 C [facility] Comment on above: Order Comment: Speci men Type: BLOOD SPECIMENOrdering Facility: [facility] Address: [address] [place] [address] Performed By: #### 5 7021-8 ####[facility] HOS[facility]ITALNCLIA [id number] [place] [address] [place] Monocytes (Bld) [#/Vol] 0.46 10*3/uL Normal <0.87 [facility] Comment on above: Order Comment: Speci men Type: BLOOD SPECIMENOrdering Facility: [facility] Address: [address] [place] [address] Performed By: #### 5 7021-8 ####[facility]OS[facility]ITALNCLIA [id number] [address] [place] Monocytes/100 WBC (Bld) 7.0 % Normal C [facility] Comment on above: Order Comment: Speci men Type: BLOOD SPECIMENOrdering Facility: [facility] Address: [address] [place] [address] Performed By: #### 5 7021-8 ####[facility] AVELINAANDIELIA [id number] [place] [address] [place] Neutrophils (Bld) [#/Vol] 4.59 10*3/uL Normal 1.45-7.50 [facility] Comment on above: Order Comment: Speci men Type: BLOOD SPECIMENOrdering Facility: [facility] Address: [address] [place] [address] Performed By: #### 5 7021-8 ####[facility] CENTERLIA [id number] [place] [address] [place] Neutrophils/100 WBC (Bld) 70.3 % Normal [facility] Comment on above: Order Comment: Speci men Type: BLOOD SPECIMENOrdering Facility: [facility] Address: [address] [place] [address] Performed By: #### 5 7021-8 ####[facility] CENTERLIA [id number] [place] [address] [place] Nucleated RBC (Bld) [#/Vol] 10*3/uL Normal <0.01 [facility] Comment on above: Order Comment: Speci men Type: BLOOD SPECIMENOrdering Facility: [facility] Address: [address] [place] [address] Performed By: #### 5 7021-8 ####[facility] CENTERLIA [id number] [place] [address] [place] Nucleated RBC/100 WBC (Bld) [Ratio] 0.0 /100 WBC Normal [facility] Comment on above: Order Comment: Speci men Type: BLOOD SPECIMENOrdering Facility: [facility] Address: [address] [place] [address] Performed By: #### 5 7021-8 ####[facility] HOSPITALWNCLIA [id number] [place] [address] [place] Platelet mean volume (Bld) [Entitic vol] 9.8 fL Normal 9.0-12.7 [facility] Comment on above: Order Comment: Speci men Type: BLOOD SPECIMENOrdering Facility: [facility] Address: [address] [place] [address] Performed By: #### 5 7021-8 ####[facility] CENTERLIA [id number] [place] [address] [place] Platelets (Bld) [#/Vol] 196 10*3/uL Normal 150-400 [facility] Comment on above: Order Comment: Speci men Type: BLOOD SPECIMENOrdering Facility: [facility] Address: [address] [place] [address] Performed By: #### 5 7021-8 ####[facility]A [id number] [place] [address] [place] RBC (Bld) [#/Vol] 5.08 10*6/uL Normal 3.90-5.20 [facility] Comment on above: Order Comment: Speci men Type: BLOOD SPECIMENOrdering Facility: [facility] Address: [address] [place] [address] Performed By: #### 5 7021-8 ####[facility]ITALNCLIA [id number] [place] [address] [place] WBC (Bld) [#/Vol] 6.53 10*3/uL Normal 3.70-11.00 [facility] Comment on above: Order Comment: Speci men Type: BLOOD SPECIMENOrdering Facility: [facility] Address: [address] [place] [address] Performed By: #### 5 7021-8 ####[facility] CENTERLIA [id number] [place] [address] [place] Comprehensive metabolic 2000 panelOrdered By: Wanda Eugene on 02-02-2024 Albumin [Mass/Vol] 4.2 g/dL 3.9 - 4.9 g/dL [facility] ALP [Catalytic activity/Vol] 75 U/L 34 - 123 U/L [facility] ALT [Catalytic activity/Vol] 8 U/L 7 - 38 U/L [facility] Anion gap [Moles/Vol] 9 mmol/L 8 - 15 mmol/L [facility] AST [Catalytic activity/Vol] 14 U/L 13 - 35 U/L [facility] Bilirubin [Mass/Vol] 0.6 mg/dL 0.2 - 1 .3 mg/dL [facility] Calcium [Mass/Vol] 10.0 mg/dL 8.5 - 10. 2 mg/dL [facility] Chloride [Moles/Vol] 101 mmol/L 98 - 10 7 mmol/L [facility] CO2 [Moles/Vol] 27 mmol/L 22 - 30 mmol/L [facility] Creatinine [Mass/Vol] 0.66 mg/dL 0.58 - 0.96 mg/dL [facility] GFR/1.73 sq M.predicted among non-blacks MDRD (S/P/Bld) [Vol rate/Area] 89 mL/min/{1.73_m2} - PINF [facility] Comment on above: Estimated Glomerular Filtration Rate (eGFR) is calculated using the 2020 CKD-EPI creatinine equation. This equation utilizes serum creatinine, sex, and age as parameters. The creatinine assay has traceable calibration to isotope dilution-mass spectrometry. Refer to KDIGO guidelines for clinical interpretation. In patients with unstable renal function, e.g. those with acute kidney injury, the eGFR may not accurately reflect actual GFR. Glucose [Mass/Vol] 95 mg/dL 74 - 99 mg/dL [facility] Comment on above: The [place] Diabete s Association (ADA) provides guidance for cutoff values for fasting glucose and random glucose. The ADA defines fasting as no caloric intake for at least 8 hours. Fasting plasma glucose results between 100 to 125 mg/dL indicate increased risk for diabetes (prediabetes). Fasting plasma glucose results greater than or equal to 126 mg/dL meet the criteria for diagnosis of diabetes. In the absence of unequivocal hyperglycemia, results should be confirmed by repeat testing. In a patient with classic symptoms of hyperglycemia or hyperglycemic crisis, random plasma glucose results greater than or equal to 200 mg/dL meet the criteria for diagnosis of diabetes. Reference: Standards of Medical Care in Diabetes 2016, [place] [employer]. Diabetes Care. 2016.39(Suppl 1). Interpretation and review of laboratory results Normal [facility] Potassium [Moles/Vol] 4.0 mmol/L 3.7 - 5.1 mmol/L [facility] Protein [Mass/Vol] 6.4 g/dL 6.3 - 8.0 g/dL [facility] Sodium [Moles/Vol] 137 mmol/L 136 - 144 mmol/L [facility] Urea nitrogen [Mass/Vol] 16 mg/dL 7 - 21 mg/d L [facility] Comprehensive metabolic 2000 panelon 02-02-2024 Albumin [Mass/Vol] 4.2 g/dL Normal 3.9-4.9 [facility] Comment on above: Order Comment: Bre richards Type: BLOOD SPECIMENOrdering Facility: [facility] Address: [address] [place] [address] Performed By: #### 2 4323-8 ####[facility]ITALWNCLIA [id number] [place] [address] [place] ALP [Catalytic activity/Vol] 75 U/L Normal 34-123 [facility] Comment on above: Order Comment: Bre richards Type: BLOOD SPECIMENOrdering Facility: [facility] Address: [address] [place] [address] Performed By: #### 2 4323-8 ####[facility] MILLTOWNCLIA [id number] [place] [address] [place] ALT [Catalytic activity/Vol] 8 U/L Normal 7-38 [facility] Comment on above: Order Comment: Bre richards Type: BLOOD SPECIMENOrdering Facility: [facility] Address: [address] [place] [address] Performed By: #### 2 4323-8 ####[facility]ITALWNCLIA [id number] [place] [address] [place] Anion gap [Moles/Vol] 9 mmol/L Normal 8-15 [facility] Comment on above: Order Comment: Speci men Type: BLOOD SPECIMENOrdering Facility: [facility] Address: [address] [place] [address] Performed By: #### 2 4323-8 ####[facility] MILLTOWNCLIA [id number] [place] [address] [place] AST [Catalytic activity/Vol] 14 U/L Normal 13-35 [facility] Comment on above: Order Comment: Speci men Type: BLOOD SPECIMENOrdering Facility: [facility] Address: [address] [place] [address] Performed By: #### 2 4323-8 ####[facility]ITALNCLIA [id number] [place] [address] [place] Bilirubin [Mass/Vol] 0.6 mg/dL Normal 0.2-1.3 [place] Comment on above: Order Comment: Speci men Type: BLOOD SPECIMENOrdering Facility: [facility] Address: [address] [place] [address] Performed By: #### 2 4323-8 ####[facility]ITALWNCLIA [id number] [place] [address] [place] Calcium [Mass/Vol] 10.0 mg/dL Normal 8.5-10.2 [facility] Comment on above: Order Comment: Speci men Type: BLOOD SPECIMENOrdering Facility: [facility] Address: [address] [place] [address] Performed By: #### 2 4323-8 ####[facility]ITALNCLIA [id number] [place] [address] [place] Chloride [Moles/Vol] 101 mmol/L Normal 98-107 [place] Comment on above: Order Comment: Speci men Type: BLOOD SPECIMENOrdering Facility: [facility] Address: [address] [place] [address] Performed By: #### 2 4323-8 #### [facility] [id number] [place] [address] [place] CO2 [Moles/Vol] 27 mmol/L Normal 22-30 [facility] Comment on above: Order Comment: Speci men Type: BLOOD SPECIMENOrdering Facility: [facility] Address: [address] [place] [address] Performed By: #### 2 4323-8 ####[facility] [id number] [place] [address] [place] Creatinine [Mass/Vol] 0.66 mg/dL Normal 0.58-0.96 [facility] Comment on above: Order Comment: Speci men Type: BLOOD SPECIMENOrdering Facility: [facility] Address: [address] [place] [address] Performed By: #### 2 4323-8 ####[facility]ENTERLI [id number] [address] Creatinine and Glomerular filtration rate.predicted panel (S/P/Bld) 89 mL/min/1.73m??? Normal >=60 [facility] Comment on above: Order Comment: Speci men Type: BLOOD SPECIMENOrdering Facility: [facility] Address: [address] [place] [address] Result Comment: Sara mated Glomerular Filtration Rate (eGFR) is calculated using the 2020 CKD-EPI creatinine equation. This equation utilizes serum creatinine, sex, and age as parameters. The creatinine assay has traceable calibration to isotope dilution-mass spectrometry. Refer to KDIGO guidelines for clinical interpretation. In patients with unstable renal function, e.g. those with acute kidney injury, the eGFR may not accurately reflect actual GFR. Performed By: #### 2 4323-8 ####[facility]ENTERLIA [id number] [place] [address] [place] Glucose [Mass/Vol] 95 mg/dL Normal 74-99 [facility] Comment on above: Order Comment: Speci men Type: BLOOD SPECIMENOrdering Facility: [facility] Address: [address] [place], [place] [address] Result Comment: The [place] Diabetes Association (ADA) provides guidance for cutoff values for fasting glucose and random glucose. The ADA defines fasting as no caloric intake for at least 8 hours. Fasting plasma glucose results between 100 to 125 mg/dL indicate increased risk for diabetes (prediabetes). Fasting plasma glucose results greater than or equal to 126 mg/dL meet the criteria for diagnosis of diabetes. In the absence of unequivocal hyperglycemia, results should be confirmed by repeat testing. In a patient with classic symptoms of hyperglycemia or hyperglycemic crisis, random plasma glucose results greater than or equal to 200 mg/dL meet the criteria for diagnosis of diabetes. Reference: Standards of Medical Care in Diabetes 2016, [place] Diabetes Association. Diabetes Care. 2016.39(Suppl 1). Performed By: #### 2 4323-8 ####[facility] MILLWNCLIA [id number] [place] [address] [place] Potassium [Moles/Vol] 4.0 mmol/L Normal 3.7-5.1 [facility] Comment on above: Order Comment: Speci men Type: BLOOD SPECIMENOrdering Facility: [facility] Address: [address] [place], [place] [address] Performed By: #### 2 4323-8 ####[facility] MILLTOWNCLIA [id number] [place] [address] [place] Protein [Mass/Vol] 6.4 g/dL Normal 6.3-8.0 [facility] Comment on above: Order Comment: Speci men Type: BLOOD SPECIMENOrdering Facility: [facility] Address: [address] [place], [place] [address] Performed By: #### 2 4323-8 ####[facility]ENTERLIA [id number] [place] [address] [place] Sodium [Moles/Vol] 137 mmol/L Normal 136-144 [facility] Comment on above: Order Comment: Speci men Type: BLOOD SPECIMENOrdering Facility: [facility] Address: [address] [place] [address] Performed By: #### 2 4323-8 ####[facility] [id number] [place] [address] [place] Urea nitrogen [Mass/Vol] 16 mg/dL Normal 7-21 [facility] Comment on above: Order Comment: Speci men Type: BLOOD SPECIMENOrdering Facility: [facility] Address: [address] [place] [address] Performed By: #### 2 4323-8 ####[facility] [id number] [place] [address] [place] Ferritin SerPl-ncon 2023 Ferritin [Mass/Vol] 70.4 ng/mL Normal 14.7-205.1 [facility] Comment on above: Order Comment: Speci men Type: BLOOD SPECIMENOrdering Facility: [facility] Address: [address] [place] [address] Performed By: #### 2 276-4, 70304-3 ####[facility] LABCLIA [id number] [place] [address] [place] Iron and Iron binding capaci ty panelon 02-02-2024 Iron [Mass/Vol] 121 ug/dL Normal 41-186 [facility] Comment on above: Order Comment: Speci men Type: BLOOD SPECIMENOrdering Facility: [facility] Address: [address] [place] [address] Performed By: #### 2 276-4, 06705-7 ####[facility] LABCLIA [id number] [place] [address] [place] Iron binding capacity [Mass/Vol] 311 ug/dL Normal 232-386 [facility] Comment on above: Order Comment: Speci men Type: BLOOD SPECIMENOrdering Facility: [facility] Address: [address] [place], [place] [address] Performed By: #### 2 276-4, 00195-6 ####[facility] LABCLIA [id number] [place] [id number] [place] Iron/TIBC [Molar ratio] 38.9 % Normal 15.0-57.0 C [facility] Comment on above: Order Comment: Speci men Type: BLOOD SPECIMENOrdering Facility: [facility] Address: [address] [place], [place] [address] Performed By: #### 2 276-4, 00237-0 ####[facility] LABCLIA [id number] [place] [id number] [place] GOOD SCREENING W TOMOon 01-15 GOOD SCREENING W MALOU * * *Final Report* * * DATE OF EXAM: Jan 16 2024 8:26AM WRW [id number] - GOOD SCREENING W MALOU / PROCEDURE REASON: Encounter for screening breast examination * * * * Physician Interpretation * * * * RESULT: [place] [id number] HISTORY: Patient is 78 years old and is seen for screening. No current complaints. The patient has a history of left breast cancer. COMPARISON STUDIES: The present examination has been compared to prior imaging studies dated 01/01/2021 (mammogram), 01/03/2022 (mammogram) and 01/07/2023 (mammogram). MAMMOGRAM TECHNIQUE: The study was acquired using full field digital technology and interpreted from soft copy. Digital Breast Tomosynthesis (DBT) images were obtained and used to assist in the interpretation of this examination. Computer-aided detection was utilized by the radiologist in the interpretation of this examination. MAMMOGRAM FINDINGS: There are scattered areas of fibroglandular density. There are post-operative changes in the left breast. There are no significant changes from the prior study. No suspicious masses, calcifications or other abnormalities are seen in either breast. IMPRESSION: There is no mammographic evidence of malignancy. Routine screening mammogram is recommended. Annual mammogram will be due in 1 year. BI-RADS Category 2: Benign Interpreting Radiologist: Sarah Mendez M.D. Electronically signed on: 01/19/2024 Pick Up Man: LUZ MARINA Transcribe Date/Time: Jan 16 2024 8:12A Dictated by: SARAH MENDEZ MD This examination was interpreted and the report reviewed and electronically signed by: SARAH MENDEZ MD on Jan 19 2024 8:12AM EST [id number] Normal [facility] Free T3on 12-02-2023 Free T3 [Mass/Vol] 2.6 pg/mL Normal 2.18-3.98 [facility] Comment on above: Performed By: #### L 506.0400, L501.9520, L501.86212 #### [facility] [address] [place], [address] T4 Free Directon 12-02-2023 T4 FREE DIRECT 1.08 ng/dL Normal 0.76-1.46 [facility] Comment on above: Performed By: #### L 506.0400, L501.9520, L501.30197 #### [facility] [address] [place], [address] Thyroid Stim Hormone (TSH)on 12-02-2023 TSH 0.713 uIU/mL Normal 0.358-3.740 [facility] Comment on above: Performed By: #### L 506.0400, L501.9520, L501.61866 #### [facility] [address] [place], [address] Urgent Care Visit Reporton 0 11-21-2023 Urgent Care Visit Report [facility] [address], [address] [place] [address] OFFICE VISIT Date of Service: 11/21/23 MR#: [id number] Acct: [id number] Name: EDER SEVERINO Rep #: [id number] : 1945 Provider: DEREK Nevarez Age/Sex: 78/F Location: [facility] Status: Signed Intake Vital Signs 11/13/23 07:57 11/21/23 10:23 Height 5 ft 5 in Weight: 153 lb 8 oz BMI 25.5 BP 144/75 H 132/66 H Blood Pressure Location Lt brachial Lt brachial Position Sitting Sitting Respiration 16 16 Pulse 71 89 Pulse Source Monitor NIBP Temp 98.6 F 98.5 F Temp Source Temporal Temporal Pulse Oximetry (%) 98 100 Oxygen Delivery Method room air room air Intake Visit Reasons: R FOREARM WOUND Chief Complaint: right arm skin tear Lead Business Analyst Required: No Is patient in pain?: Yes Allergies aspirin Allergy (Mild, Verified 11/21/23 10:23) unknown calcium carbonate (From Tums) Allergy (Mild, Verified 11/21/23 10:23) Other estradiol (From Vagifem) Allergy (Mild, Verified 11/21/23 10:23) unknown latanoprost (From Xalatan) Allergy (Mild, Verified 11/21/23 10:23) unknown miconazole (From Monistat 3) Allergy (Mild, Verified 11/21/23 10:23) burining, headache, nausea phenazopyridine Allergy (Mild, Verified 11/21/23 10:23) Other propoxyphene (From Darvon) Allergy (Mild, Verified 11/21/23 10:23) Other ranitidine (From Zantac) Allergy (Mild, Verified 11/21/23 10:23) unknown skin cleanser combination no.17 (From Monistat 3) Allergy (Mild, Verified 11/21/23 10:23) burining, headache, nausea tioconazole (From Monistat 1 (tioconazole)) Allergy (Mild, Verified 11/21/23 10:23) burning, headache, nausea amoxicillin Allergy (Verified 11/21/23 10:23) Anaphylaxis ibuprofen (From Advil) Allergy (Verified 11/21/23 10:23) Other indomethacin (From Indocin) Allergy (Verified 11/21/23 10:23) Anaphylaxis indomethacin sodium (From Indocin) Allergy (Verified 11/21/23 10:23) Anaphylaxis prednisolone Allergy (Verified 11/21/23 10:23) Swelling Sulfa (Sulfonamide Antibiotics) Allergy (Verified 11/21/23 10:23) Anaphylaxis barium sulfate Adverse Reaction (Verified 11/21/23 10:23) Rash nitrofurantoin macrocrystalline (From Macrodantin) Adverse Reaction (Verified 11/21/23 10:23) Other prednisone Adverse Reaction (Verified 11/21/23 10:23) Other progesterone Adverse Reaction (Verified 11/21/23 10:23) Other propoxyphene HCl (From Darvon) Adverse Reaction (Verified 11/21/23 10:23) Other Is last menstrual period known: No Post menopausal: Yes Patient : No Have you fallen in the past year?: No Nurse's Note: scraped right forearm on elevator door yesterday. bandaged at home, bandage is stuck and pt afraid to remove. also concerned for infection wound cleansed with hibiclens, irrigated with 300 cc sterile saline. evaluated by CM. bacitracin applied, adaptic, 4x4 folded, secured with coban. Tdap less than 5 years per pt [facility] Medical History (Updated 11/21/23 @ 10:41 by Alan REED, PA) History of thyroid nodule Secondary polycythemia Oral allergy syndrome Upper respiratory infection Suspected COVID-19 virus infection Neuropathy Hives Temporal arteritis Ductal carcinoma in situ (DCIS) of breast Gallstones Thyroid nodule History of pneumonia as a child GERD (gastroesophageal reflux disease) Vegan diet Arthritis Acute urticaria Osteopenia Macular degeneration Hemochromatosis Glaucoma Cataract Asthma Allergic rhinitis Acid reflux Surgical History H/O laparoscopy History of lumpectomy of left breast History of cataract surgery History of cholecystectomy Family History Sister Breast cancer Mother Diabetes Myocardial infarction, Onset Age: 69 Arthritis Liver disease Osteoporosis Father Myocardial infarction, Onset Age: 75 Brother Myocardial infarction, Onset Age: 44 Parkinsons Other Cancer Social History Smoking Status: Never smoker alcohol intake: never substance use type: does not use what type of physical activity do you participate in: walking frequency: 3-4 times per week HPI HPI Chief Complaint: right arm skin tear Details: EDER SEVERINO, is a 78 F who presents to the office today for initial evaluation of a right forearm skin tear that occurred yesterday evening. Patient states that she scraped herself along a sharp object however is not sure of what the object actually was. She denies numbness, tingling or loss range of motion. She does state that she has kept the area clean and covered. Her last tetanus immunization was less than 5 years ago according to the patient. No other associated symptoms or alleviating/ag (more content not included)... Normal [facility] Thyroidon 11-20-2023 Thyroid [facility] [address] [place] [address] Thyroid MR#: [id number] Acct: [id number] Name: EDER SEVERINO Rep #: [id number] : 1945 F 78 From: Jalen prince MD PCP: Dr. Katarina Medina MD Status: REG [facility] Study: Thyroid Date of Exam: 11/20/23 Exam# [id number] Ordering [place]: [place] [id number] INDICATION: History thyroid nodules -- Last US [facility] 2018. R 5 mm, L 3 mm, IS 3mm EXAMINATION: Ultrasound US Thyroid (eg thyroid, parathyroid, parotid) TECHNIQUE: Johnson scale and color doppler imaging was performed of the thyroid gland. COMPARISON: None. FINDINGS: RIGHT THYROID LOBE: Measures 4.7 x 1.6 x 1.5 cm. Homogeneous echotexture with normal vascularity. [Contains multiple tiny nodules: -0.4 cm hypoechoic solid nodule in the lateral aspect. -0.3 cm hypoechoic solid nodule in the lateral aspect. LEFT THYROID LOBE: Measures 4.7 x 1.6 x 1.7 cm. Homogeneous echotexture with normal vascularity. [No thyroid nodules are present. ISTHMUS: Measures 0.3 cm. There is a 0.4 cm solid hypoechoic nodule in the isthmus. US/Thyroid IMPRESSION: Multinodular goiter: -0.4 cm hypoechoic solid TR-4 nodule in the lateral aspect of the right thyroid lobe is moderately suspicious. Recommend follow-up ultrasound in one year. -0.3 cm hypoechoic solid TR-4 nodule in the lateral aspect of the right thyroid lobe is moderately suspicious. Recommend follow-up ultrasound in one year. -0.4 cm solid hypoechoic TR-4 nodule in the isthmus is moderately suspicious. Recommend follow-up ultrasound in one year. Electronically Signed: Jalen Iraheta MD at 20:59 EDT , CC: Dr. Katarina Medina MD Pick Up Man: Signed [facility] MR/BMS.Bon 11-13-2023 MR/BMS.IMB [facility] [address] [place] [address] OFFICE VISIT Date of Service: 11/13/23 MR#: [id number] Acct: [id number] Name: EDER SEVERINO Rep #: [id number] : 1945 Provider: Dr. Katarina dias MD Age/Sex: 78/F Location: [facility] Status: Signed Intake Vital Signs 05/28/23 10:23 11/13/23 07:57 Height 5 ft 5 in 5 ft 5 in Weight: 153 lb 8 oz BMI 25.5 BP 144/75 H Blood Pressure Location Lt brachial Position Sitting Respiration 16 Pulse 71 Pulse Source Monitor Temp 98.6 F Temp Source Temporal Pulse Oximetry (%) 98 Oxygen Delivery Method room air Intake Visit Reasons: 6 M FU Chief Complaint: 6m f/u Lead Business Analyst Required: No Accompanied by: Self Is patient in pain?: No Allergies aspirin Allergy (Mild, Verified 11/13/23 07:54) unknown calcium carbonate (From Tums) Allergy (Mild, Verified 11/13/23 07:54) Other estradiol (From Vagifem) Allergy (Mild, Verified 11/13/23 07:54) unknown latanoprost (From Xalatan) Allergy (Mild, Verified 11/13/23 07:54) unknown miconazole (From Monistat 3) Allergy (Mild, Verified 11/13/23 07:54) burining, headache, nausea phenazopyridine Allergy (Mild, Verified 11/13/23 07:54) Other propoxyphene (From Darvon) Allergy (Mild, Verified 11/13/23 07:54) Other ranitidine (From Zantac) Allergy (Mild, Verified 11/13/23 07:54) unknown skin cleanser combination no.17 (From Monistat 3) Allergy (Mild, Verified 11/13/23 07:54) burining, headache, nausea tioconazole (From Monistat 1 (tioconazole)) Allergy (Mild, Verified 11/13/23 07:54) burning, headache, nausea amoxicillin Allergy (Verified 11/13/23 07:54) Anaphylaxis ibuprofen (From Advil) Allergy (Verified 11/13/23 07:54) Other indomethacin (From Indocin) Allergy (Verified 11/13/23 07:54) Anaphylaxis indomethacin sodium (From Indocin) Allergy (Verified 11/13/23 07:54) Anaphylaxis prednisolone Allergy (Verified 11/13/23 07:54) Swelling Sulfa (Sulfonamide Antibiotics) Allergy (Verified 11/13/23 07:54) Anaphylaxis barium sulfate Adverse Reaction (Verified 11/13/23 07:54) Rash nitrofurantoin macrocrystalline (From Macrodantin) Adverse Reaction (Verified 11/13/23 07:54) Other prednisone Adverse Reaction (Verified 11/13/23 07:54) Other progesterone Adverse Reaction (Verified 11/13/23 07:54) Other propoxyphene HCl (From Darvon) Adverse Reaction (Verified 11/13/23 07:54) Other Medications ???Medication ???Instructions ???Recorded ???Confirmed ???Type L.acidophilus-L.plantar um-B.animalis-B.longum 1 ea PO DAILY 04/26/14 11/13/23 History 2 billion cell capsule diphenhydramine HCl 25 mg capsule 25 mg PO BID PRN PRN Allergies 05/11/15 09/05/24 History biotin 1 mg capsule 2,500 mcg PO QDAY 10/17/17 11/13/23 History Nattokinase 2,000 mg PO DAILY 12/05/20 11/13/23 History cholecalciferol (vitamin D3) 125 10,000 unit PO DAILY 12/20/21 11/13/23 History mcg (5,000 unit) capsule lutein 20 mg capsule 20 mg PO DAILY 06/10/22 11/13/23 History magnesium amino acid chelate 100 100 mg PO DAILY 12/09/22 11/13/23 History mg tablet phlebotomies for hemachromatosis See Rx Instructions IM .COMPLEX 12/09/22 11/13/23 History albuterol sulfate 90 mcg/actuation 2 puff inhalation Q4H PRN PRN 11/13/23 11/13/23 Rx aerosol inhaler Wheezing #8.5 grams Have you fallen in the past year?: No PFSH Medical History Secondary polycythemia Oral allergy syndrome Upper respiratory infection Suspected COVID-19 virus infection Neuropathy Hives Temporal arteritis Ductal carcinoma in situ (DCIS) of breast Gallstones Thyroid nodule History of pneumonia as a child GERD (gastroesophageal reflux disease) Vegan diet Arthritis Acute urticaria Osteopenia Macular degeneration Hemochromatosis Glaucoma Cataract Asthma Allergic rhinitis Acid reflux Surgical History H/O laparoscopy History of lumpectomy of left breast History of cataract surgery History of cholecystectomy Family History Sister Breast cancer Mother Diabetes Myocardial infarction, Onset Age: 69 Arthritis Liver disease Osteoporosis Father Myocardial infarction, Onset Age: 75 Brother Myocardial infarction, Onset Age: 44 Parkinsons Other Cancer Social History Smoking Status: Never smoker alcohol intake: never substance use type: does not use what type of physical activity do you participate in: walking frequency: 3-4 times per week HPI HPI Chief Complaint: 6m f/u Details: EDER SEVERINO, is a 78 F who presents to the office today for 6-month follow-up. Imtiaz has a history of hemochromatosis, f (more content not included)... 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 2) DCIS. HPI: Mrs. Severino is a 77-year-old female diagnosed with hemochromatosis. She was diagnosed with temporal arteritis in 2017. She completed a 6 month course of tapering prednisone. She underwent EGD in the fall 2016 that demonstrated multiple duodenal ulcers. Had an abnormal screening mammogram 01/23/2018. There were indeterminate multiple calcifications in the left breast. Subsequent diagnostic left mammogram on 02/04/2018 revealed grouped fine pleomorphic calcifications in the left breast at the 12:00 middle depth. She underwent stereotactic core biopsy on 02/16/2018. Pathology: DCIS, grade 3. Estrogen receptors were positive (greater than 95%, strong) ND positive (greater than 95%, moderate and HER-2 3+. She underwent left breast lumpectomy on 03/12/2018. Final pathology demonstrated DCIS, grade 3 measuring 2 x 1 x 1 mm. Margin was negative. Closest margin was 5 mm from the anterior margin. Presents for ongoing hematologic management. Interim history: She continues to receive subcutaneous mistletoe injections for history of DCIS. She tolerates phlebotomy well. She continues on gilda kinase to help the flow. Typically takes it once a day. Increases to BID prior to phlebotomy. Appetite normal. No abdominal pain or specifically no right upper quadrant pain. Undergoing work up for mild cognitive impairment. PMH, medications and allergies as below personally reviewed by me today. Any changes documented in appropriate section. ROS: The 10 system review is otherwise negative. PHYSICAL EXAM: Vitals: Blood pressure 168/91, pulse 67, temperature 36.7 ?C (98 ?F), temperature source Temporal, weight 70.3 kg (155 lb), SpO2 99%. Well-appearing and in no acute distress. EYES: Sclerae are anicteric bilaterally. NECK: Supple. LYMPHATIC: There is no palpable cervical, supraclavicular adenopathy. RESPIRATORY: Normal passive respirations. CARDIOVASCULAR: Rhythm is regular. ABDOMEN: The abdomen is nondistended. Extremities: No swelling or edema. SKIN: No jaundice. LABS: Latest Ref Rng 05/12/2023 11/07/2023 WBC 3.70 - 11.00 k/uL 5.06 RBC 3.90 - 5.20 m/uL 4.89 Hemoglobin 11.5 - 15.5 g/dL 14.5 Hematocrit 36.0 - 46.0 % 42.7 MCV 80.0 - 100.0 fL 87.3 MCH 26.0 - 34.0 pg 29.7 MCHC 30.5 - 36.0 g/dL 34.0 RDW-CV 11.5 - 15.0 % 12.6 Platelet Count 150 - 400 k/uL 184 MPV 9.0 - 12.7 fL 10.0 Neut% % 63.4 Abs Neut (ANC) 1.45 - 7.50 k/uL 3.21 Lymph% % 24.7 Abs Lymph 1.00 - 4.00 k/uL 1.25 Fayette% % 7.7 Abs Fayette <0.87 k/uL 0.39 Eosin% % 2.6 Abs Eosin <0.46 k/uL 0.13 Baso% % 1.4 Abs Baso <0.11 k/uL 0.07 Immature Gran % % 0.2 IMMATURE GRANS (ABS) <0.10 k/uL <0.03 NRBC /100 WBC 0.0 Absolute nRBC <0.01 k/uL <0.01 DTYPE Auto Protein, Total 6.3 - 8.0 g/dL 6.2 (L) Albumin 3.9 - 4.9 g/dL 4.2 Calcium 8.5 - 10.2 mg/dL 10.1 Bilirubin, Total 0.2 - 1.3 mg/dL 0.6 Alkaline Phosphatase 34 - 123 U/L 77 AST 13 - 35 U/L 15 ALT 7 - 38 U/L 9 Glucose 74 - 99 mg/dL 88 BUN 7 - 21 mg/dL 13 Creatinine 0.58 - 0.96 mg/dL 0.72 Sodium 136 - 144 mmol/L 136 Potassium 3.7 - 5.1 mmol/L 4.0 Chloride 98 - 107 mmol/L 102 CO2 22 - 30 mmol/L 24 Anion Gap 8 - 15 mmol/L 10 eGFR >=60 mL/min/1.73m? 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 -Tolerating phlebotomy well. -Reviewed lab work with her. Mild increase in RBC number. Previous MPN panel negative. -White coat HTN. Home BPs consistently 120s/60s. -Discussed and answered questions she had. Plan: -Phlebotomy q 3 months. Okay for today. -Recommended she have her well water tested for iron content. -OV/CBC/iron studies/CMP/AFP in about a year. -She will continue following with her PCP for her other health care needs. 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 Plan: -Annual mammogram due in December--will order. Portions of this documentation were copied and pasted from previous office visit notes in order to provide a cohesive continuity of the history. The note has been reviewed and edited and updat (more content not included)... Normal [facility] CBC W Auto Differential pane l (Bld)on 11-07-2023 Basophils (Bld) [#/Vol] 0.07 10*3/uL Normal <0.11 [facility] Comment on above: Order Comment: Speci men Type: BLOOD SPECIMENOrdering Facility: [facility] Address: [address] [place] [address] Performed By: #### 5 7021-8 ####[facility] EUGENIEWNCLIA [id number] [place] [address] [place] Basophils/100 WBC (Bld) 1.4 % Normal [facility] Comment on above: Order Comment: Speci men Type: BLOOD SPECIMENOrdering Facility: [facility] Address: [address] [place] [address] Performed By: #### 5 7021-8 ####[facility] MILLWNCLIA [id number] [place] [address] [place] Differential cell count method Nom (Bld) Auto Normal [facility] Comment on above: Order Comment: Speci men Type: BLOOD SPECIMENOrdering Facility: [facility] Address: [address] [place] [address] Performed By: #### 5 7021-8 ####[facility] MILLWNCLIA [id number] [place] [address] [place] Eosinophils (Bld) [#/Vol] 0.13 10*3/uL Normal <0.46 [facility] Comment on above: Order Comment: Speci men Type: BLOOD SPECIMENOrdering Facility: [facility] Address: [address] [place] [address] Performed By: #### 5 7021-8 ####[facility] MILLTOWNCLIA [id number] [place] [address] [place] Eosinophils/100 WBC (Bld) 2.6 % Normal [facility] Comment on above: Order Comment: Speci men Type: BLOOD SPECIMENOrdering Facility: [facility] Address: [address] [place] [address] Performed By: #### 5 7021-8 ####[facility] [id number] [place] [address] [place] Erythrocyte distribution width (RBC) [Ratio] 12.6 % Normal 11.5-15.0 [facility] Comment on above: Order Comment: Speci men Type: BLOOD SPECIMENOrdering Facility: [facility] Address: [address] [place] [address] Performed By: #### 5 7021-8 ####[facility]ALSydnee [id number] [place] [address] [place] Hematocrit (Bld) [Volume fraction] 42.7 % Normal 36.0-46.0 [facility] Comment on above: Order Comment: Speci men Type: BLOOD SPECIMENOrdering Facility: [facility] Address: [address] [place] [address] Performed By: #### 5 7021-8 ####[facility] [id number] [place] [address] [place] Hemoglobin (Bld) [Mass/Vol] 14.5 g/dL Normal 11.5-15.5 [facility] Comment on above: Order Comment: Speci men Type: BLOOD SPECIMENOrdering Facility: [facility] Address: [address] [place] [address] Performed By: #### 5 7021-8 ####[facility]OSPITALMACK [id number] [place] [address] [place] Immature granulocytes (Bld) [#/Vol] 10*3/uL Normal <0.10 [facility] Comment on above: Order Comment: Speci men Type: BLOOD SPECIMENOrdering Facility: [facility] Address: [address] [place] [address] Performed By: #### 5 7021-8 ####[facility] HOSPITALNCLIA [id number] [place] [address] [place] Immature granulocytes/100 WBC (Bld) 0.2 % Normal [facility] Comment on above: Order Comment: Speci men Type: BLOOD SPECIMENOrdering Facility: [facility] Address: [address] [place] [address] Performed By: #### 5 7021-8 ####[facility] [id number] [place] [address] [place] Lymphocytes (Bld) [#/Vol] 1.25 10*3/uL Normal 1.00-4.00 [facility] Comment on above: Order Comment: Speci men Type: BLOOD SPECIMENOrdering Facility: [facility] Address: [address] [place] [address] Performed By: #### 5 7021-8 ####[facility] [id number] [place] [address] [place] Lymphocytes/100 WBC (Bld) 24.7 % Normal [facility] Comment on above: Order Comment: Speci men Type: BLOOD SPECIMENOrdering Facility: [facility] Address: [address] [place] [address] Performed By: #### 5 7021-8 ####[facility] [id number] [place] [address] [place] MCH (RBC) [Entitic mass] 29.7 pg Normal 26.0-34.0 [facility] Comment on above: Order Comment: Speci men Type: BLOOD SPECIMENOrdering Facility: [facility] Address: [address] [place] [address] Performed By: #### 5 7021-8 ####[facility] [id number] [place] [address] [place] MCHC (RBC) [Mass/Vol] 34.0 g/dL Normal 30.5-36.0 [facility] Comment on above: Order Comment: Speci men Type: BLOOD SPECIMENOrdering Facility: [facility] Address: [address] [place] [address] Performed By: #### 5 7021-8 ####[facility] HOSPITALDIMITRISLIA [id number] [place] [address] [place] MCV (RBC) [Entitic vol] 87.3 fL Normal 80.0-100.0 C [facility] Comment on above: Order Comment: Speci men Type: BLOOD SPECIMENOrdering Facility: [facility] Address: [address] [place] [address] Performed By: #### 5 7021-8 ####[facility] HOSPITALNCA [id number] [place] [address] [place] Monocytes (Bld) [#/Vol] 0.39 10*3/uL Normal <0.87 [facility] Comment on above: Order Comment: Speci men Type: BLOOD SPECIMENOrdering Facility: [facility] Address: [address] [place] [address] Performed By: #### 5 7021-8 ####[facility] HOSPITALDIMITRISA [id number] [place] [address] [place] Monocytes/100 WBC (Bld) 7.7 % Normal C [facility] Comment on above: Order Comment: Speci men Type: BLOOD SPECIMENOrdering Facility: [facility] Address: [address] [place] [address] Performed By: #### 5 7021-8 ####[facility] HOSPITALNCLIA [id number] [place] [address] [place] Neutrophils (Bld) [#/Vol] 3.21 10*3/uL Normal 1.45-7.50 [facility] Comment on above: Order Comment: Speci men Type: BLOOD SPECIMENOrdering Facility: [facility] Address: [address] [place] [address] Performed By: #### 5 7021-8 ####[facility] CENTERLIA [id number] [place] [address] [place] Neutrophils/100 WBC (Bld) 63.4 % Normal [facility] Comment on above: Order Comment: Speci men Type: BLOOD SPECIMENOrdering Facility: [facility] Address: [address] [place] [address] Performed By: #### 5 7021-8 ####[facility] AVELINAASHLANDMACK [id number] [place] [address] [place] Nucleated RBC (Bld) [#/Vol] 10*3/uL Normal <0.01 [facility] Comment on above: Order Comment: Speci men Type: BLOOD SPECIMENOrdering Facility: [facility] Address: [address] [place] [address] Performed By: #### 5 7021-8 ####[facility] [id number] [place] [address] [place] Nucleated RBC/100 WBC (Bld) [Ratio] 0.0 /100 WBC Normal [facility] Comment on above: Order Comment: Speci men Type: BLOOD SPECIMENOrdering Facility: [facility] Address: [address] [place] [address] Performed By: #### 5 7021-8 ####[facility] CENTERYAZMIN [id number] [place] [address] [place] Platelet mean volume (Bld) [Entitic vol] 10.0 fL Normal 9.0-12.7 [facility] Comment on above: Order Comment: Speci men Type: BLOOD SPECIMENOrdering Facility: [facility] Address: [address] [place] [address] Performed By: #### 5 7021-8 ####[facility] HOSPITALNCLIA [id number] [place] [address] [place] Platelets (Bld) [#/Vol] 184 10*3/uL Normal 150-400 [facility] Comment on above: Order Comment: Speci men Type: BLOOD SPECIMENOrdering Facility: [facility] Address: [address] [place] [address] Performed By: #### 5 7021-8 ####[facility] HOSPITALWNCLIA [id number] [place] [address] [place] RBC (Bld) [#/Vol] 4.89 10*6/uL Normal 3.90-5.20 [facility] Comment on above: Order Comment: Speci men Type: BLOOD SPECIMENOrdering Facility: [facility] Address: [address] [place] [address] Performed By: #### 5 7021-8 ####[facility] HOSPITALNCSHRINERS HOSPITALS FOR CHILDREN [id number] [place] [address] [place] WBC (Bld) [#/Vol] 5.06 10*3/uL Normal 3.70-11.00 [facility] Comment on above: Order Comment: Speci men Type: BLOOD SPECIMENOrdering Facility: [facility] Address: [address] [place] [address] Performed By: #### 5 7021-8 ####[facility] HOSPITALNCLIA [id number] [place] [address] [place] Comprehensive metabolic 2000 panelon 11-07-2023 Albumin [Mass/Vol] 4.2 g/dL Normal 3.9-4.9 [facility] Comment on above: Order Comment: Speci men Type: BLOOD SPECIMENOrdering Facility: [facility] Address: [address] [place] [address] Performed By: #### 2 4323-8 ####[facility] HOSPITALNCLIA [id number] [place] [address] [place] ALP [Catalytic activity/Vol] 77 U/L Normal 34-123 [facility] Comment on above: Order Comment: Speci men Type: BLOOD SPECIMENOrdering Facility: [facility] Address: [address] [place] [address] Performed By: #### 2 4323-8 #### [facility]AMARAN[facility] TRAOREWNCLIA [id number] [place] [address] [place] ALT [Catalytic activity/Vol] 9 U/L Normal 7-38 [facility] Comment on above: Order Comment: Speci men Type: BLOOD SPECIMENOrdering Facility: [facility] Address: [address] [place] [address] Performed By: #### 2 4323-8 ####[facility] MILLTOWNCLIA [id number] [place] [address] [place] Anion gap [Moles/Vol] 10 mmol/L Normal 8-15 [facility] Comment on above: Order Comment: Speci men Type: BLOOD SPECIMENOrdering Facility: [facility] Address: [address] [place] [address] Performed By: #### 2 4323-8 ####[facility] AVELINAWNCLIA [id number] [place] [address] [place] AST [Catalytic activity/Vol] 15 U/L Normal 13-35 [facility] Comment on above: Order Comment: Speci men Type: BLOOD SPECIMENOrdering Facility: [facility] Address: [address] [place] [address] Performed By: #### 2 4323-8 ####[facility] MILLTOWNCLIA [id number] [place] [address] [place] Bilirubin [Mass/Vol] 0.6 mg/dL Normal 0.2-1.3 [place] Comment on above: Order Comment: Speci men Type: BLOOD SPECIMENOrdering Facility: [facility] Address: [address] [place] [address] Performed By: #### 2 4323-8 ####[facility] HOSPITALWNCLIA [id number] [place] [address] [place] Calcium [Mass/Vol] 10.1 mg/dL Normal 8.5-10.2 [facility] Comment on above: Order Comment: Speci men Type: BLOOD SPECIMENOrdering Facility: [facility] Address: [address] [place] [address] Performed By: #### 2 4323-8 ####[facility] MILLWNCLIA [id number] [place] [address] [place] Chloride [Moles/Vol] 102 mmol/L Normal 98-107 [place] Comment on above: Order Comment: Speci men Type: BLOOD SPECIMENOrdering Facility: [facility] Address: [address] [place] [address] Performed By: #### 2 4323-8 ####[facility] CENTERLIA [id number] [place] [address] [place] CO2 [Moles/Vol] 24 mmol/L Normal 22-30 [facility] Comment on above: Order Comment: Speci men Type: BLOOD SPECIMENOrdering Facility: [facility] Address: [address] [place] [address] Performed By: #### 2 4323-8 ####[facility] CENTERLIA [id number] [place] [address] [place] Creatinine [Mass/Vol] 0.72 mg/dL Normal 0.58-0.96 [facility] Comment on above: Order Comment: Speci men Type: BLOOD SPECIMENOrdering Facility: [facility] Address: [address] [place] [address] Performed By: #### 2 4323-8 ####[facility] HOSPITALNCLIA [id number] [place] [address] [place] Creatinine and Glomerular filtration rate.predicted panel (S/P/Bld) 85 mL/min/1.73m??? Normal >=60 [facility] Comment on above: Order Comment: Bre richards Type: BLOOD SPECIMENOrdering Facility: [facility] Address: [address] [place] [address] Result Comment: Sara mated Glomerular Filtration Rate (eGFR) is calculated using the 2020 CKD-EPI creatinine equation. This equation utilizes serum creatinine, sex, and age as parameters. The creatinine assay has traceable calibration to isotope dilution-mass spectrometry. Refer to KDIGO guidelines for clinical interpretation. In patients with unstable renal function, e.g. those with acute kidney injury, the eGFR may not accurately reflect actual GFR. Performed By: #### 2 4323-8 ####[facility] [id number] [place] [address] [place] Glucose [Mass/Vol] 88 mg/dL Normal 74-99 [facility] Comment on above: Order Comment: Bre richards Type: BLOOD SPECIMENOrdering Facility: [facility] Address: [address] [place] [address] Result Comment: The [place] Diabetes Association (ADA) provides guidance for cutoff values for fasting glucose and random glucose. The ADA defines fasting as no caloric intake for at least 8 hours. Fasting plasma glucose results between 100 to 125 mg/dL indicate increased risk for diabetes (prediabetes). Fasting plasma glucose results greater than or equal to 126 mg/dL meet the criteria for diagnosis of diabetes. In the absence of unequivocal hyperglycemia, results should be confirmed by repeat testing. In a patient with classic symptoms of hyperglycemia or hyperglycemic crisis, random plasma glucose results greater than or equal to 200 mg/dL meet the criteria for diagnosis of diabetes. Reference: Standards of Medical Care in Diabetes 2016, [place] [employer]. Diabetes Care. 2016.39(Suppl 1). Performed By: #### 2 4323-8 ####[facility] [id number] [place] [address] [place] Potassium [Moles/Vol] 4.0 mmol/L Normal 3.7-5.1 [facility] Comment on above: Order Comment: Speci men Type: BLOOD SPECIMENOrdering Facility: [facility] Address: [address] [place] [address] Performed By: #### 2 4323-8 ####[facility] LIZZIENCSHAHRZADA [id number] [place] [address] [place] Protein [Mass/Vol] 6.2 g/dL Low 6.3-8.0 [facility] Comment on above: Order Comment: Speci men Type: BLOOD SPECIMENOrdering Facility: [facility] Address: [address] [place] [address] Performed By: #### 2 4323-8 ####[facility] AVELINAWNCSHAHRZADA [id number] [place] [address] [place] Sodium [Moles/Vol] 136 mmol/L Normal 136-144 [facility] Comment on above: Order Comment: Speci men Type: BLOOD SPECIMENOrdering Facility: [facility] Address: [address] [place] [address] Performed By: #### 2 4323-8 ####[facility] HOSPITALNCLIA [id number] [place] [address] [place] Urea nitrogen [Mass/Vol] 13 mg/dL Normal 7-21 [facility] Comment on above: Order Comment: Speci men Type: BLOOD SPECIMENOrdering Facility: [facility] Address: [address] [place] [address] Performed By: #### 2 4323-8 ####[facility] HOSPITALWNCLIA [id number] [place] [address] [place] Ferritin SerPl-mCncon 2023 Ferritin [Mass/Vol] 36.3 ng/mL Normal 14.7-205.1 [facility] Comment on above: Order Comment: Speci men Type: BLOOD SPECIMENOrdering Facility: [facility] Address: [address] [place] [address] Performed By: #### 2 276-4, 69429-5 ####[facility] LABCLIA [id number] [place] [id number] [place] Iron and Iron binding capaci ty panelon 11-07-2023 Iron [Mass/Vol] 76 ug/dL Normal 41-186 [facility] Comment on above: Order Comment: Speci men Type: BLOOD SPECIMENOrdering Facility: [facility] Address: [address] [place] [address] Performed By: #### 2 276-4, 65524-3 ####[facility] LABIA [id number] [address] STATES OF [facility] Iron binding capacity [Mass/Vol] 321 ug/dL Normal 232-386 [facility] Comment on above: Order Comment: Speci men Type: BLOOD SPECIMENOrdering Facility: [facility] Address: [address] [place] [address] Performed By: #### 2 276-4, 14875-9 ####[facility] LABIA [id number] [place] [address] [place] Iron/TIBC [Molar ratio] 23.7 % Normal 15.0-57.0 [facility] Comment on above: Order Comment: Speci men Type: BLOOD SPECIMENOrdering Facility: [facility] Address: [address] [place] [address] Performed By: #### 2 276-4, 24635-3 ####[facility] LABIA [id number] [place] [id number] [place] MR Brain WO contraston 09-01 * * *Final Report* * * DATE OF EXAM: Sep 02 2023 2:19PM [facility] 0294 - MRI BRAIN WO IVCON / PROCEDURE REASON: multiple diagnoses * * * * Physician Interpretation * * * * EXAMINATION: MRI BRAIN WO IVCON, MRI 3D POST PROCESSING Clinical history: As provided by the ordering clinician via order question entries: Dementia with quantitative volumetric analysis (3T only & MRI 3D Postprocessing), For anatomic quantification. Memory loss. Impaired memory Forgetfulness. TECHNIQUE: Axial NAVEEN FLAIR, NAVEEN T2, diffusion and susceptibility weighted imaging without contrast, using the ADNI dementia protocol and 3-D post-processing using the NeuroQuant software at an independent workstation with concurrent physician supervision and images were created, reviewed and archived. MQ: [id number] Comparison: None available RESULT: QUALITATIVE: Acute Intracranial Process: None. Chronic Intracranial Process: Scattered patchy areas of T2/FLAIR hyperintensity in the supratentorial white matter, nonspecific, but likely representing mild chronic microvascular ischemic change. 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 Number of chronic lacunar infarcts: 1 Location of chronic lacunar infarcts: Posterior left paramedian inferior cerebellar hemisphere at the level of the prebiventral fissure. Age related white matter changes (ARWMC) rating: White matter lesions: 1 Basal ganglia lesions: 0 *Basal ganglia according to Wahlund et al. includes the striatum, globus pallidus, thalamus, internal/external capsule, and insula. Prior intracranial hemorrhage: Parenchymal microhemorrhages: 0 Other (siderosis/macrohemorrh ages (>10mm): Not Applicable Amyloid Related Imaging Abnormalities: ARIA-E: N/A ARIA-H Microhemorrhage: N/A ARIA-H Siderosis: N/A Qualitative brain and hippocampal volume loss for age: Cortex: Normal. White Matter: Normal. Hippocampi: Normal. Symmetric. Ventricles: Ventricular calibers are commensurate with the parenchymal volume and normal in configuration. Brain Parenchymal Signal and Morphology: The brain parenchyma is otherwise within normal limits of signal and morphology. There is no evidence of an intracranial mass or extraaxial fluid collection. Other Findings: Small left greater than right mastoid effusions. Bilateral pseudophakia. No substantial paranasal sinus mucosal thickening. Conchal bullosa of the left middle nasal turbinate. Small left greater than right left occipital joint effusions. Mild degenerative changes in the partially visualized upper cervical spine. QUANTITATIVE: Exam Quality: Good for volumetric analysis. Segmentation: The caudate nuclei are under-segmented bilaterally rendering an erroneous quantitative assessment at the 1st percentile. Quantitative Data: Total Hippocampal Volume: Percentile for age: 70th Asymmetry Index: -16.2 Superior Lateral Ventricular Volume: Percentile for age: 13th Asymmetry Index: -2.8 Inferior Lateral Ventricular Volume: Percentile for age: 68th Asymmetry Index: 35.3 Temporal Lobe Volume: Percentile for age: 73rd Asymmetry Index: -16.4 Frontal Lobe Volume: Percentile for age: 61st Asymmetry Index: -2.32 Parietal Lobe Volume: Percentile for age: 67th Occipital Lobe Volume: Percentile for age: 92nd Whole Brain Volume: Percentile for age: 46th Concordance between qualitative and quantitative hippocampal volume assessment: Concordant Change in brain volumes: No previous volumetric study for comparison Whole Brain Volume Change: N/A Hippocampal Volume Change: N/A Superior Lateral Ventricle Volume Change: N/A Inferior Lateral Ventricle Volume Change: N/A Mean hippocampal volume loss among normal elderly: 0.7% per year, (-0.3 to 1.7; Petty 2008; also Johan 2010). DIVISION OF RADIOLOGY Provider, [facility] - 09/02/2023 * * *Final Report* * * DATE OF EXAM: Sep 02 2023 2:19PM [facility] 0294 - MRI BRAIN WO IVCON / PROCEDURE REASON: multiple diagnoses * * * * Physician Interpretation * * * * EXAMINATION: MRI BRAIN WO IVCON, MRI 3D POST PROCESSING Clinical history: As provided by the ordering clinician via order question entries: Dementia with quantitative volumetric analysis (3T only & MRI 3D Postprocessing), For anatomic quantification. Memory loss. Impaired memory Forgetfulness. TECHNIQUE: Axial NAVEEN FLAIR, NAVEEN T2, diffusion and susceptibility weighted imaging without contrast, using the ADNI dementia protocol and 3-D post-processing using the NeuroQuant software at an independent workstation with concurrent physician supervision and images were created, reviewed and archived. MQ: [id number] Comparison: None available RESULT: QUALITATIVE: Acute Intracranial Process: None. Chronic Intracranial Process: Scattered patchy areas of T2/FLAIR hyperintensity in the supratentorial white matter, nonspecific, but likely representing mild chronic microvascular ischemic change. 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 Number of chronic lacunar infarcts: 1 Location of chronic lacunar infarcts: Posterior left paramedian inferior cerebellar hemisphere at the level of the prebiventral fissure. Age related white matter changes (ARWMC) rating: White matter lesions: 1 Basal ganglia lesions: 0 *Basal ganglia according to Wahlund et al. includes the striatum, globus pallidus, thalamus, internal/external capsule, and insula. Prior intracranial hemorrhage: Parenchymal microhemorrhages: 0 Other (siderosis/macrohemorrh ages (>10mm): Not Applicable Amyloid Related Imaging Abnormalities: ARIA-E: N/A ARIA-H Microhemorrhage: N/A ARIA-H Siderosis: N/A Qualitative brain and hippocampal volume loss for age: Cortex: Normal. White Matter: Normal. Hippocampi: Normal. Symmetric. Ventricles: Ventricular calibers are commensurate with the parenchymal volume and normal in configuration. Brain Parenchymal Signal and Morphology: The brain parenchyma is otherwise within normal limits of signal and morphology. There is no evidence of an intracranial mass or extraaxial fluid collection. Other Findings: Small left greater than right mastoid effusions. Bilateral pseudophakia. No substantial paranasal sinus mucosal thickening. Conchal bullosa of the left middle nasal turbinate. Small left greater than right left occipital joint effusions. Mild degenerative changes in the partially visualized upper cervical spine. QUANTITATIVE: Exam Quality: Good for volumetric analysis. Segmentation: The caudate nuclei are under-segmented bilaterally rendering an erroneous quantitative assessment at the 1st percentile. Quantitative Data: Total Hippocampal Volume: Percentile for age: 70th Asymmetry Index: -16.2 Superior Lateral Ventricular Volume: Percentile for age: 13th Asymmetry Index: -2.8 Inferior Lateral Ventricular Volume: Percentile for age: 68th Asymmetry Index: 35.3 Temporal Lobe Volume: Percentile for age: 73rd Asymmetry Index: -16.4 Frontal Lobe Volume: Percentile for age: 61st Asymmetry Index: -2.32 Parietal Lobe Volume: Percentile for age: 67th Occipital Lobe Volume: Percentile for age: 92nd Whole Brain Volume: Percentile for age: 46th Concordance between qualitative and quantitative hippocampal volume assessment: Concordant Change in brain volumes: No previous volumetric study for comparison Whole Brain Volume Change: N/A Hippocampal Volume Change: N/A Superior Lateral Ventricle Volume Change: N/A Inferior Lateral Ventricle Volume Change: N/A Mean hippocampal volume loss among normal elderly: 0.7% per year, (-0.3 to 1.7; Petty 2008; also Johan 2010). IMPRESSION IMPRESSION: * No apparent acute intracranial process or intracranial mass. * No significant generalized volume loss for patient age by qualitative assessment. * Hippocampal volumes at the 70th percentile when compared to age matched normal controls by quantitative analysis. * Mild white matter disease which is nonspecific but likely reflective of chronic microvascular ischemia. 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 * No evidence of parenchymal microhemorrhages by MRI. REFERENCES: White matter lesions 0 = No lesions (including symmetrical, well-defined caps or bands) 1 = Focal lesions 2 = Beginning of confluence 3 = Diffuse involvement of entire region Basal ganglia lesions 0 = No lesions 1 = 1 focal lesion ( > 5 mm) 2 = >1 focal lesion ( > 5 mm) 3 = Confluent lesions Jaguar (more content not included)... [facility] MR Unspecified body region 3 D post processingon 09-02-2023 * * *Final Report* * * DATE OF EXAM: Sep 02 2023 2:19PM [facility] 0280 - MRI 3D POST PROCESSING / PROCEDURE REASON: multiple diagnoses * * * * Physician Interpretation * * * * EXAMINATION: MRI BRAIN WO IVCON, MRI 3D POST PROCESSING Clinical history: As provided by the ordering clinician via order question entries: Dementia with quantitative volumetric analysis (3T only & MRI 3D Postprocessing), For anatomic quantification. Memory loss. Impaired memory Forgetfulness. TECHNIQUE: Axial NAVEEN FLAIR, NAVEEN T2, diffusion and susceptibility weighted imaging without contrast, using the ADNI dementia protocol and 3-D post-processing using the [employer] software at an independent workstation with concurrent physician supervision and images were created, reviewed and archived. MQ: [id number] Comparison: None available RESULT: QUALITATIVE: Acute Intracranial Process: None. Chronic Intracranial Process: Scattered patchy areas of T2/FLAIR hyperintensity in the supratentorial white matter, nonspecific, but likely representing mild chronic microvascular ischemic change. 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 Number of chronic lacunar infarcts: 1 Location of chronic lacunar infarcts: Posterior left paramedian inferior cerebellar hemisphere at the level of the prebiventral fissure. Age related white matter changes (ARWMC) rating: White matter lesions: 1 Basal ganglia lesions: 0 *Basal ganglia according to Wahlund et al. includes the striatum, globus pallidus, thalamus, internal/external capsule, and insula. Prior intracranial hemorrhage: Parenchymal microhemorrhages: 0 Other (siderosis/macrohemorrh ages (>10mm): Not Applicable Amyloid Related Imaging Abnormalities: ARIA-E: N/A ARIA-H Microhemorrhage: N/A ARIA-H Siderosis: N/A Qualitative brain and hippocampal volume loss for age: Cortex: Normal. White Matter: Normal. Hippocampi: Normal. Symmetric. Ventricles: Ventricular calibers are commensurate with the parenchymal volume and normal in configuration. Brain Parenchymal Signal and Morphology: The brain parenchyma is otherwise within normal limits of signal and morphology. There is no evidence of an intracranial mass or extraaxial fluid collection. Other Findings: Small left greater than right mastoid effusions. Bilateral pseudophakia. No substantial paranasal sinus mucosal thickening. Conchal bullosa of the left middle nasal turbinate. Small left greater than right left occipital joint effusions. Mild degenerative changes in the partially visualized upper cervical spine. QUANTITATIVE: Exam Quality: Good for volumetric analysis. Segmentation: The caudate nuclei are under-segmented bilaterally rendering an erroneous quantitative assessment at the 1st percentile. Quantitative Data: Total Hippocampal Volume: Percentile for age: 70th Asymmetry Index: -16.2 Superior Lateral Ventricular Volume: Percentile for age: 13th Asymmetry Index: -2.8 Inferior Lateral Ventricular Volume: Percentile for age: 68th Asymmetry Index: 35.3 Temporal Lobe Volume: Percentile for age: 73rd Asymmetry Index: -16.4 Frontal Lobe Volume: Percentile for age: 61st Asymmetry Index: -2.32 Parietal Lobe Volume: Percentile for age: 67th Occipital Lobe Volume: Percentile for age: 92nd Whole Brain Volume: Percentile for age: 46th Concordance between qualitative and quantitative hippocampal volume assessment: Concordant Change in brain volumes: No previous volumetric study for comparison Whole Brain Volume Change: N/A Hippocampal Volume Change: N/A Superior Lateral Ventricle Volume Change: N/A Inferior Lateral Ventricle Volume Change: N/A Mean hippocampal volume loss among normal elderly: 0.7% per year, (-0.3 to 1.7; Petty 2008; also Johan 2010). DIVISION OF RADIOLOGY Provider, [facility] - 09/02/2023 * * *Final Report* * * DATE OF EXAM: Sep 02 2023 2:19PM [facility] 0280 - MRI 3D POST PROCESSING / PROCEDURE REASON: multiple diagnoses * * * * Physician Interpretation * * * * EXAMINATION: MRI BRAIN WO IVCON, MRI 3D POST PROCESSING Clinical history: As provided by the ordering clinician via order question entries: Dementia with quantitative volumetric analysis (3T only & MRI 3D Postprocessing), For anatomic quantification. Memory loss. Impaired memory Forgetfulness. TECHNIQUE: Axial NAVEEN FLAIR, NAVEEN T2, diffusion and susceptibility weighted imaging without contrast, using the ADNI dementia protocol and 3-D post-processing using the [employer] software at an independent workstation with concurrent physician supervision and images were created, reviewed and archived. MQ: [id number] Comparison: None available RESULT: QUALITATIVE: Acute Intracranial Process: None. Chronic Intracranial Process: Scattered patchy areas of T2/FLAIR hyperintensity in the supratentorial white matter, nonspecific, but likely representing mild chronic microvascular ischemic change. 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 Number of chronic lacunar infarcts: 1 Location of chronic lacunar infarcts: Posterior left paramedian inferior cerebellar hemisphere at the level of the prebiventral fissure. Age related white matter changes (ARWMC) rating: White matter lesions: 1 Basal ganglia lesions: 0 *Basal ganglia according to Wahlund et al. includes the striatum, globus pallidus, thalamus, internal/external capsule, and insula. Prior intracranial hemorrhage: Parenchymal microhemorrhages: 0 Other (siderosis/macrohemorrh ages (>10mm): Not Applicable Amyloid Related Imaging Abnormalities: ARIA-E: N/A ARIA-H Microhemorrhage: N/A ARIA-H Siderosis: N/A Qualitative brain and hippocampal volume loss for age: Cortex: Normal. White Matter: Normal. Hippocampi: Normal. Symmetric. Ventricles: Ventricular calibers are commensurate with the parenchymal volume and normal in configuration. Brain Parenchymal Signal and Morphology: The brain parenchyma is otherwise within normal limits of signal and morphology. There is no evidence of an intracranial mass or extraaxial fluid collection. Other Findings: Small left greater than right mastoid effusions. Bilateral pseudophakia. No substantial paranasal sinus mucosal thickening. Conchal bullosa of the left middle nasal turbinate. Small left greater than right left occipital joint effusions. Mild degenerative changes in the partially visualized upper cervical spine. QUANTITATIVE: Exam Quality: Good for volumetric analysis. Segmentation: The caudate nuclei are under-segmented bilaterally rendering an erroneous quantitative assessment at the 1st percentile. Quantitative Data: Total Hippocampal Volume: Percentile for age: 70th Asymmetry Index: -16.2 Superior Lateral Ventricular Volume: Percentile for age: 13th Asymmetry Index: -2.8 Inferior Lateral Ventricular Volume: Percentile for age: 68th Asymmetry Index: 35.3 Temporal Lobe Volume: Percentile for age: 73rd Asymmetry Index: -16.4 Frontal Lobe Volume: Percentile for age: 61st Asymmetry Index: -2.32 Parietal Lobe Volume: Percentile for age: 67th Occipital Lobe Volume: Percentile for age: 92nd Whole Brain Volume: Percentile for age: 46th Concordance between qualitative and quantitative hippocampal volume assessment: Concordant Change in brain volumes: No previous volumetric study for comparison Whole Brain Volume Change: N/A Hippocampal Volume Change: N/A Superior Lateral Ventricle Volume Change: N/A Inferior Lateral Ventricle Volume Change: N/A Mean hippocampal volume loss among normal elderly: 0.7% per year, (-0.3 to 1.7; Petty 2008; also Johan 2010). IMPRESSION IMPRESSION: * No apparent acute intracranial process or intracranial mass. * No significant generalized volume loss for patient age by qualitative assessment. * Hippocampal volumes at the 70th percentile when compared to age matched normal controls by quantitative analysis. * Mild white matter disease which is nonspecific but likely reflective of chronic microvascular ischemia. 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 * No evidence of parenchymal microhemorrhages by MRI. REFERENCES: White matter lesions 0 = No lesions (including symmetrical, well-defined caps or bands) 1 = Focal lesions 2 = Beginning of confluence 3 = Diffuse involvement of entire region Basal ganglia lesions 0 = No lesions 1 = 1 focal lesion ( > 5 mm) 2 = >1 focal lesion ( > 5 mm) 3 = Confluent lesions (more content not included)... [facility] No Panel Informationon 09-01 IMPRESSION: * No apparent acute intracranial process or intracranial mass. * No significant generalized volume loss for patient age by qualitative assessment. * Hippocampal volumes at the 70th percentile when compared to age matched normal controls by quantitative analysis. * Mild white matter disease which is nonspecific but likely reflective of chronic microvascular ischemia. 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 * No evidence of parenchymal microhemorrhages by MRI. REFERENCES: White matter lesions 0 = No lesions (including symmetrical, well-defined caps or bands) 1 = Focal lesions 2 = Beginning of confluence 3 = Diffuse involvement of entire region Basal ganglia lesions 0 = No lesions 1 = 1 focal lesion ( > 5 mm) 2 = >1 focal lesion ( > 5 mm) 3 = Confluent lesions Johan Soler et al. The clinical use of structural MRI in Alzheimer disease. Nature Reviews Neurology 6;67 (2010). Petty et al. Validation of a fully automated 3D hippocampal segmentation method using subjects with Alzheimer's disease mild cognitive impairment, and elderly controls. Neuroimage 43;59 (2008). Mykel et al. A New Rating Scale for Age-Related White Matter Changes Applicable to MRI and CT. Stroke. 32:1318 (2001). * Asymmetry index defined as difference between left and right volumes divided by mean (%). Age-matched reference charts measure total hippocampal volume (% of intracranial volume). See results from the analysis charts for details. Pick Up Man: ISMA Transcribe Date/Time: Sep 02 2023 2:45P Dictated by : SREEDHAR GREEN MD This examination was interpreted and the report reviewed and electronically signed by: SREEDHAR GREEN MD on Sep 02 2023 3:00PM [facility] DIVISION OF RADIOLOGY Radiology Study observation (narrative) [facility] No Panel InformationOrdered By: [facility] Provider on 09-02-2023 [facility] Basophil percentageOrdered B y: Moose Lawrence on 01-27-2023 Basophil percentage 0 SEEN /hpf 0-5 [facility] Bilirubin Test strip Ql (U)O rdered By: Moose Lawrence on 01-27-2023 Bilirubin Ql (U) Negative Negative [facility] Culture, urineOrdered By: St taras Lawrence on 01-27-2023 Bacteria identified Cx Nom (U) Mixed Gram Pos & Gram Neg Org [facility] Ketones Test strip Ql (U)Ord ered By: Moose Lawrence on 01-27-2023 Ketones Ql (U) Negative Negative [facility] Mucus LM Ql (Urine sed)Order ed By: Moose Lawrence on 01-27-2023 Mucus Ql (Urine sed) 0 SEEN /hpf [facility] Nitrite Test strip Ql (U)Ord ered By: Moose Lawrence on 01-27-2023 Nitrite Ql (U) Negative Negative [facility] Protein Test strip Ql (U)Ord ered By: Moose Lawrence on 01-27-2023 Protein Ql (U) Negative Negative [facility] Squamous epithelial cells de tection in urine sediment by light microscopyOrdered By: Moose Lawrence on 01-27-2023 Epithelial cells.squamous LM Ql (Urine sed) 0-5 SEEN /hpf 5-10 [facility] Urine blood detectionOrdered By: Moose Lawrence on 01-27-2023 RBC Ql (U) Negative Negative [facility] RBC Ql (U) 0 SEEN /hpf 0-5 [facility] Urine clarityOrdered By: Noah Lawrence on 01-27-2023 Clarity (U) Clear Clear [facility] Urine color determinationOrd ered By: Moose Lawrence on 01-27-2023 Color (U) Yellow Yellow [facility] Urine glucose detectionOrder ed By: Moose Lawrence on 01-27-2023 Glucose Ql (U) Normal mg/dl Normal [facility] Urine leukocyte esterase det ection by dipstickOrdered By: Moose Lawrence on 01-27-2023 Leukocyte esterase Test strip Ql (U) 100 /ul Negative [facility] Urine pHOrdered By: Moose ferro on 01-27-2023 pH (U) 7.0 [pH] 5.0 - 8.0 [facility] Urine sediment bacteria coun t by microscopy (number/high power field)Ordered By: Moose Lawrence on 01-27-2023 Bacteria LM.HPF (Urine sed) [#/Area] 0 /[HPF] None Seen [facility] Urine specific gravity measu rementOrdered By: Moose Lawrence on 01-27-2023 Specific gravity (U) [Rel density] 1.010 1.002-1.030 [facility] Urobilinogen Auto test strip Ql (U)Ordered By: Moose Lawrence on 01-27-2023 Urobilinogen Ql (U) Normal mg/dl Normal [facility] Laboratory - Chemistry and C hemistry - challengeon 01-25-2023 Bilirubin Ql (U) Negative [facility] Glucose Ql (U) Negative [facility] Ketones Ql (U) Negative [facility] pH (U) 6.5 [pH] [facility] Specific gravity (U) [Rel density] 1.010 [facility] Urobilinogen (U) [Mass/Vol] 0.7836006 mg/dL [facility] Laboratory - Hematology and Cell countson 01-25-2023 Hemoglobin Ql (U) Negative [facility] Laboratory - Specimen inform ationon 01-25-2023 Clarity (U) Cloudy [facility] Color (U) YELLOW [facility] Laboratory - Urinalysison Nitrite Ql (U) Negative [facility] Protein Ql (U) Negative [facility] No Panel Informationon 01-25 Urine Leukocytes Positive [facility] Urine Non-Hemolyzed Blood Negative [facility] GOOD SCREENINGon 01-07-2023 [facility] UA DIP, URINE (POC)on 2022 BILIRUBIN UA (POCT) Negative Negative [facility] CLARITY UA (POCT) Clear [facility] COLOR UA (POCT) Yellow [facility] GLUCOSE UA (POCT) Negative Negative mg/dL [facility] Hemoglobin Ql (U) Trace-intact Abnormal Negative [facility] KETONE UA (POCT) Negative Negative mg/dL [facility] LEUKOCYTES UA (POCT) Trace Abnormal Negative [facility] NITRITE UA (POCT) Negative Negative [facility] PH UA (POCT) 7.0 4.5 - 8.0 [facility] Protein Ql (U) Negative Negative mg/dL [facility] SPECIFIC GRAVITY UA (POCT) 1.010 1.005 - 1.030 [facility] UROBILINOGEN UA (POCT) 0.2 E.U./dL Deysi l E.U./dL [facility] Basophil percentageOrdered B y: Katarina Medina on 12-09-2022 Bilirubin [Mass/Vol] 0.60 mg/dL 0.20-1.00 [facility] Comment on above: For patients on eltr ombopag therapy, use of Dimension [place] TBIL is not recommended. Chloride [Moles/Vol] 105 mmol/L 98-107 [facility] Cholesterol [Mass/Vol] 171 mg/dL <200 [facility] Comment on above: <200 mg/dL Desirable 200-240 mg/dL Borderline >240 mg/dL High Risk Glucose [Mass/Vol] 99 mg/dL 74-106 [facility] Potassium [Moles/Vol] 3.8 mmol/L 3.5-5.1 [facility] Protein [Mass/Vol] 7.0 g/dL 6.4-8.2 [facility] Sodium [Moles/Vol] 140 mmol/L 136-145 [facility] Triglyceride [Mass/Vol] 95 mg/dL <199 [facility] Comment on above: The drugs N-Acetylcy steine and Metamizole may falsely depress this assay.Serum Triglycerides Reference Interval Normal <150 mg/dL Borderline high 150 - 199 mg/dL High 200 - 499 mg/dL Very High > or = 500 mg/dL Laboratory - Chemistry and C hemistry - challengeOrdered By: Katarina Medina on 12-09-2022 ALP [Catalytic activity/Vol] 78 U/L 45-117 [facility] ALT [Catalytic activity/Vol] 18 U/L 13-56 [facility] CO2 [Moles/Vol] 29.0 mmol/L 21.0-32.0 [facility] Cobalamin (Vitamin B12) [Mass/Vol] 420 pg/mL 211-911 [facility] Globulin (S) [Mass/Vol] 3.1 g/dL 2.2-4.2 [facility] Magnesium [Mass/Vol] 2.4 mg/dL 1.6-2.6 [facility] Urea nitrogen/Creatinine [Mass ratio] 17.9 mg/mg 10-20 [facility] No Panel InformationOrdered By: Katarina Medina on 12-09-2022 Estimated GFR (MDRD) Amer 109 mL/min >60 [facility] Comment on above: GFR Calc Estimated GFR (MDRD) Non-Af Amer 90 mL/min >60 [facility] Comment on above: Non- GFR Calc Thyroid Stimulating Hormone (TSH) 0.80 uIU/mL 0.358-3.74 [facility] Vitamin D 25-Hydroxy 105.5 ng/mL [facility] Comment on above: Vitamin D 25(OH) Sta tus Range Deficiency <20 ng/mL (50nmol/L) Insufficiency 20 - 30 ng/mL (50 - 75 nmol/L) Sufficiency 30 - 100 ng/mL (75 - 250 nmol/L) Toxicity >100 ng/mL (>250 nmol/L)Evidence suggests that patients undergoing fluorescein dye angiography can retain small amounts of fluorescein in the body for up to 48 to 72 hours post-treatment. In the cases of patients with renal insufficiency, retention could be much longer. Samples containing fluorescein can produce falsely elevated values when tested with the [employer] Centaur Vitamin D assay. With fluorescein interference, observed Vitamin D values can be as high as >150 ng/mL (>375 nmol/L). Samples should be resubmitted post fluorescein clearance to ensure there is no interference with Vitamin D test results. Serum or plasma C reactive p rotein measurement (mass/volume)Ordered By: Katarina Medina on 12-09-2022 CRP [Mass/Vol] mg/L 0.0-3.0 [facility] Comment on above: C-Reactive Protein ( CRP) provides useful information for thediagnosis, therapy and monitoring of inflammatory processesand associated diseases. For the evaluation of Relative Riskfor Cardiovascular Disease, a High Sensitivity CRP (HSCRP)should be ordered. Serum or plasma albumin chapis urement (mass/volume)Ordered By: Katarina Medina on 12-09-2022 Albumin [Mass/Vol] 3.9 g/dL 3.2-5.0 [facility] Serum or plasma albumin/glob ulin mass ratioOrdered By: Katarina Medina on 12-09-2022 Albumin/Globulin [Mass ratio] 1.3 {ratio} 0.9-2.4 [facility] Serum or plasma calcium chapis urement (mass/volume)Ordered By: Katarina Medina on 12-09-2022 Calcium [Mass/Vol] 9.3 mg/dL 8.5-10.1 [facility] Serum or plasma cholesterol in HDL measurement (mass/volume)Ordered By: Katarina Medina on 12-09-2022 Cholesterol in HDL [Mass/Vol] 68 mg/dL >40 [facility] Comment on above: The drugs N-Acetylcy steine and Metamizole may falsely depress this assay. Reference Range HDL <40 mg/dL Low HDL Cholesterol HDL >or= 60 mg/dL High HDL Cholesterol Serum or plasma cholesterol in VLDL measurement (mass/volume)Ordered By: Katarina Medina on 12-09-2022 Cholesterol in VLDL [Mass/Vol] 19 mg/dL 5-40 [facility] Serum or plasma creatinine m easurement (mass/volume)Ordered By: Katarina Medina on 12-09-2022 Creatinine [Mass/Vol] 0.67 mg/dL 0.55-1.02 [facility] Comment on above: The validity of the calculated GFR & GFRAA in patients over 70 years has not been determined. Clinical correlation is essential. Serum or plasma low density lipoprotein (LDL) cholesterol measurement (mass/volume)Ordered By: Katarina Medina on 12-09-2022 Cholesterol in LDL [Mass/Vol] 84 mg/dL 0-130 [facility] Serum or plasma urea nitroge n measurement (mass/volume)Ordered By: Katarina Medina on 12-09-2022 Urea nitrogen [Mass/Vol] 12 mg/dL 7-18 [facility] Thin prep Papanicolaou smear with manual screeningOrdered By: Katarina Medina on 12-09-2022 Thin prep Papanicolaou smear with manual screening 14 U/L 15-37 [facility] Thin prep Papanicolaou smear with manual screening 6 5-15 [facility] No Panel Informationon 11-01 Anti-Nuclear Antibody Screen Negative Negative [facility] Comment on above: Performed at: [address] [id number] Director: Juanito Boone PhD, Phone: [phone] Miscellaneous Test See comment [facility] Comment on above: TEST RESULTS LIMITSA nti-SS-A 52kD Ab, IgG (RDL) A, <20 Units <20 Negative: <20 Weak Positive: 20 - 39 Moderate Positive: 40 - 80 Strong Positive: >80CommentsA: This test was developed and its performance characteristics determined by [facility]. It has not been cleared or approved by the Food and DrugAdministration. TESTING PERFORMED AT [facility]. ORIGINAL REPORT ON FILE IN LAB CONTAINS ADDITIONAL TEST SITE INFORMATION. Nevin 10-25-2022 CNPN Telephone (MEPRAD) EDER SEVERINO ([id number]) 1945 F Date Time Provider Department 10/25/22 MI DOUGLAS MEPLILLY During your visit today, we recorded the following information about you: Mi Douglas MD 10/25/2022 7:10 AM Signed Mammogram order entered Kelly Darby 10/29/2022 3:06 PM Signed 1st attempt left message to return call to schedule mammography and OV with Dr Douglas Allergies As of Date: 10/25/2022 Noted Allergy Reaction ADVIL (IBUPROFEN) 11/22/2004 5 - Intolerance Comments: along with any non-steroidal anti- inflammatory AMOXICILLIN 11/22/2004 5 - Intolerance ASPIRIN 07/13/2008 Comments: skin reaction- redness and burning BARIUM IODIDE 11/22/2004 2 - Rash DARVON (PROPOXYPHENE HCL) 11/22/2004 1 - Mental Status Change Comments: blacked out with postural changes INDOCIN (INDOMETHACIN SODIUM) 11/22/2004 5 - Intolerance MACRODANTIN (NITROFURANTOIN) 11/22/2004 Comments: neuropathy MONISTAT 1 (TIOCONAZOLE) 11/22/2004 Comments: headache and vaginal burning MONISTAT 3 (MICONAZOLE) 02/04/2005 5 - Intolerance Comments: vaginal burning, headache,nausea, relieved with benedryl PREDNISOLONE 02/15/2014 7 - Swelling Comments: swelling side of face, facial itching, reddened eye PREDNISONE 11/22/2004 Comments: dose related PROGESTERONE 11/22/2004 Comments: migraine psoriosis lotion [Other] 11/22/2004 2 - Rash SULFA (SULFONAMIDE ANTIBIOTICS) 11/22/2004 10 - Anaphylaxis TUMS (CALCIUM CARBONATE) 01/10/2009 Comments: Itchy eyes URISTAT (PHENAZOPYRIDINE HCL) 12/24/2004 5 - Intolerance VAGIFEM (ESTRADIOL) 04/19/2005 Comments: neuropathy XALATAN (LATANOPROST) 04/19/2005 12 - Shortness of Breath Comments: chest pain ZANTAC (RANITIDINE HCL) 03/25/2007 Comments: Burning in Legs, headache , facial Twitching, jittery Date Reviewed: 07/15/2022 Reviewed by: Izabel Sams APRN.EQUESTRIAN TRAINER - Fully Assessed Reason for Visit: Orders [681] Primary Visit Diagnosis:Screening breast examination [Z12.39] [id number] Order #: [id number] FUTURE Prescriptions as of 10/29/2022 - TURMERIC ORAL Take by mouth. - lutein 10 mg tab Take 1 tablet by mouth once daily. - OTC PRODUCT 250 mg once daily. Quercetin - Bacillus coagulans/inulin (PROBIOTIC WITH PREBIOTIC ORAL) Take 1 capsule by mouth once daily. - OTC PRODUCT [place]- r/t [facility] study - MAGNESIUM ORAL Take 100 mg by mouth once daily. - Biotin 2,500 mcg cap Take 2,500 mg by mouth once daily. - Cholecalciferol, Vitamin D3, 5,000 unit cap Take 1 capsule by mouth once daily. - OTC PRODUCT Take 100 mg by mouth twice daily. Nattokinase 100mg: Take one(1) tablet daily. 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] 01/10/2010 Vitamin D deficiency [E55.9] 03/15/2010 Urgency of urination [R39.15] 05/09/2010 05/22/2011 Nocturia [R35.1] 05/09/2010 Disorder of iron metabolism, unspecified [E83.1*11/06/2011 07/17/2016 Hemochromatosis [E83.119] 08/03/2014 07/17/2016 Hereditary hemochromatosis (HCC) [E83.110] 07/05/2016 Globus sensation [R09.89] 11/06/2016 H/O polymyalgia rheumatica [Z87.39] 02/12/2018 Encounter Status:Closed by MI DOUGLAS on 10/25/22 [facility] CBC W Auto Differential pane l (Bld)on 08-13-2022 Basophils (Bld) [#/Vol] 0.05 10*3/uL <0.11 k/uL [facility] Basophils/100 WBC (Bld) 1.0 % [facility] Differential cell count method Nom (Bld) Auto [facility] Eosinophils (Bld) [#/Vol] 0.15 10*3/uL <0.46 k/uL [facility] Eosinophils/100 WBC (Bld) 2.9 % [facility] Erythrocyte distribution width (RBC) [Ratio] 13.3 % 11.5 - 15.0 % [facility] Hematocrit (Bld) [Volume fraction] 43.8 % 36.0 - 46.0 % [facility] Hemoglobin (Bld) [Mass/Vol] 14.9 g/dL 11.5 - 15.5 g/dL [facility] Immature granulocytes (Bld) [#/Vol] <0.10 k/uL [facility] Immature granulocytes/100 WBC (Bld) 0.2 % [facility] Lymphocytes (Bld) [#/Vol] 1.49 10*3/uL 1.00 - 4.00 k/uL [facility] Lymphocytes/100 WBC (Bld) 28.6 % [facility] MCH (RBC) [Entitic mass] 29.8 pg 26. 0 - 34.0 pg [facility] MCHC (RBC) [Mass/Vol] 34.0 g/dL 30.5 - 36.0 g/dL [facility] MCV (RBC) [Entitic vol] 87.6 fL 80.0 - 100.0 fL [facility] Monocytes (Bld) [#/Vol] 0.43 10*3/uL <0.87 k/uL [facility] Monocytes/100 WBC (Bld) 8.3 % [facility] Neutrophils (Bld) [#/Vol] 3.08 10*3/uL 1.45 - 7.50 k/uL [facility] Neutrophils/100 WBC (Bld) 59.0 % [facility] Nucleated RBC (Bld) [#/Vol] <0.01 k/uL [facility] Nucleated RBC/100 WBC (Bld) [Ratio] 0.0 /100 WBC [facility] Platelet mean volume (Bld) [Entitic vol] 10.1 fL 9.0 - 12.7 fL [facility] Platelets (Bld) [#/Vol] 183 10*3/uL 150 - 400 k/uL [facility] RBC (Bld) [#/Vol] 5.00 10*6/uL 3.90 - 5.2 0 m/uL [facility] WBC (Bld) [#/Vol] 5.21 10*3/uL 3.70 - 11. 00 k/uL [facility] US ABD RT UPPER QUADRANTon 0 06-03-2022 [facility] GOOD SCREENINGon 01-03-2022 [facility] No Panel Informationon 12-20 Miscellaneous Test See comment [facility] Work Phone: Comment on above: TEST RESULT LIMITSCl ass Description: Levels of Specific IgE Class Description of Class ----- < 0.10 0 Negative 0.10 - 0.31 0/I Equivocal/Low 0.32 - 0.55 I Low 0.56 - 1.40 II Moderate 1.41 - 3.90 III High 3.91 - 19.00 IV Very High19.01 - 100.00 V Very High >100.00 Very OvjxS896-YaI Penicilliumchrysogen <0.10 kU/L Class 3M801-IkH Cladosporiumherbarum <0.10 kU/L Class 3C033-PnD Aspergillusfumigatus <0.10 kU/L Class 1D475-UhV Mucor racemosus <0.10 kU/L Class 6J729-WmA Jerrica albicans <0.10 kU/L Class 8P785-MhZ Alternaria alternata <0.10 kU/L Class 8E423-UdH Setomelanommarostrat <0.10 kU/L Class 7S474-ZgX Fusariumproliferatum <0.10 kU/L Class 0U742-CgE Aureobasidipullulans <0.10 kU/L Class 3R342-JoB Phoma betae <0.10 kU/L Class 0R805-IkR Epicoccum purpur <0.10 kU/L Class 2N239-XtJ Stemphyliumherbarum <0.10 kU/L Class 0 TESTING PERFORMED AT [facility]. ORIGINAL REPORT ON FILE IN LAB CONTAINS ADDITIONAL TEST SITE INFORMATION. No Panel Informationon 08-02 Miscellaneous Test See comment [facility] Work Phone: Comment on above: TEST RESULT UNITS RE F INTERVALAllergen Profile, MoldClass Description Levels of Specific IgE Class Description of Class ----- < 0.10 0 Negative 0.10 - 0.31 0/I Equivocal/Low 0.32 - 0.55 I Low 0.56 - 1.40 II Moderate 1.41 - 3.90 III High 3.91 - 19.00 IV Very High 19.01 - 100.00 V Very High >100.00 Very QrbtT018-PtX Penicillium chrysogen <0.10 kU/L Class 0G853-FiO Cladosporium herbarum <0.10 kU/L Class 2H537-KrN Aspergillus fumigatus <0.10 kU/L Class 0I301-UlX Mucor racemosus <0.10 kU/L Class 8Y866-IjC Jerrica albicans <0.10 kU/L Class 1M303-FwG Alternaria alternata <0.10 kU/L Class 7W186-EgH Setomelanomma rostrat <0.10 kU/L Class 9X968-AwN Fusarium proliferatum <0.10 kU/L Class 7O928-FiI Aureobasidi pullulans <0.10 kU/L Class 9I576-NkF Phoma betae <0.10 kU/L Class 9C215-NkD Epicoccum purpur <0.10 kU/L Class 0N141-JoW Stemphylium herbarum <0.10 kU/L Class 0 TESTING PERFORMED AT [facility]. ORIGINAL REPORT ON FILE IN LAB CONTAINS ADDITIONAL TEST SITE INFORMATION. Absolute lymphocyte counton 05-28-2021 Lymphocytes Auto (Unsp spec) [#/Vol] 1.18 10*3/uL 0.83-4.51 [facility] Work Phone: Basophil percentageon 2021 Basophils/100 WBC (Bld) 1.4 % 0-1 [facility] Work Phone: Bilirubin [Mass/Vol] 0.60 mg/dL 0.20-1.00 [facility] Work Phone: Comment on above: For patients on eltr ombopag therapy, use of Dimension [place] TBIL is not recommended. Chloride [Moles/Vol] 107 mmol/L 98-107 [facility] Work Phone: Cholesterol [Mass/Vol] 159 mg/dL <200 [facility] Work Phone: Comment on above: <200 mg/dL Desirable 200-240 mg/dL Borderline >240 mg/dL High Risk Eosinophils/100 WBC (Bld) 2.3 % 0-5 [facility] Work Phone: Glucose [Mass/Vol] 100 mg/dL 74-106 [facility] Work Phone: Comment on above: Fasting Glucose resu lt from 100 to 125 mg/dL suggests IMPAIRED HOMEOSTASIS per A.D.A. criteria. Neutrophils (Bld) [#/Vol] 2.7 10*3/uL 2.0-7.7 [facility] Work Phone: Neutrophils/100 WBC (Bld) 62.0 % 47-70 [facility] Work Phone: Potassium [Moles/Vol] 4.2 mmol/L 3.5-5.1 [facility] Work Phone: Protein [Mass/Vol] 6.8 g/dL 6.4-8.2 [facility] Work Phone: Sodium [Moles/Vol] 140 mmol/L 136-145 [facility] Work Phone: Triglyceride [Mass/Vol] 69 mg/dL [facility] Work Phone: Comment on above: The drugs N-Acetylcy steine and Metamizole may falsely depress this assay.Serum Triglycerides Reference Interval Normal <150 mg/dL Borderline high 150 - 199 mg/dL High 200 - 499 mg/dL Very High > or = 500 mg/dL WBC (Bld) [#/Vol] 4.4 10*3/uL 4.4-11.0 [facility] Work Phone: Blood erythrocytes count (nu mber/volume)on 05-28-2021 RBC (Bld) [#/Vol] 4.66 10*6/uL 4.2-5.4 [facility] Work Phone: Blood hemoglobin measurement (mass/volume)on 05-28-2021 Hemoglobin (Bld) [Mass/Vol] 13.8 g/dL 12.0-15.0 [facility] Work Phone: Blood lymphocytes/100 leukoc yteson 05-28-2021 Lymphocytes/100 WBC (Bld) 26.8 % 19-41 [facility] Work Phone: Blood monocytes/100 leukocyt eson 05-28-2021 Monocytes/100 WBC (Bld) 7.3 % 0-10 [facility] Work Phone: Blood platelet mean volumeon 05-28-2021 Platelet mean volume (Bld) [Entitic vol] 10.4 fL 6.2-12.0 [facility] Work Phone: Determination of erythrocyte mean corpuscular volume (MCV)on 05-28-2021 MCV (RBC) [Entitic vol] 89.3 fL 81-99 [facility] Work Phone: Hematocrit Auto (Bld) [Volum e fraction]on 05-28-2021 Hematocrit (Bld) [Volume fraction] 41.6 % 37-47 [facility] Work Phone: Laboratory - Chemistry and C hemistry - challengeon 05-28-2021 ALP [Catalytic activity/Vol] 70 U/L 45-117 [facility] Work Phone: ALT [Catalytic activity/Vol] 16 U/L 13-56 [facility] Work Phone: CO2 [Moles/Vol] 29.0 mmol/L 21.0-32.0 [facility] Work Phone: Cobalamin (Vitamin B12) [Mass/Vol] 365 pg/mL 211-911 [facility] Work Phone: Globulin (S) [Mass/Vol] 2.9 g/dL 2.2-4.2 [facility] Work Phone: Urea nitrogen/Creatinine [Mass ratio] 17.2 mg/mg 10-20 [facility] Work Phone: Laboratory - Hematology and Cell countson 05-28-2021 Erythrocyte distribution width (RBC) [Entitic vol] 43.7 fL 35.1-43.9 [facility] Work Phone: Erythrocyte distribution width (RBC) [Ratio] 13.4 % 11.6-14.6 [facility] Work Phone: Immature granulocytes/100 WBC (Bld) 0.200 % 0.0-0.9 [facility] Work Phone: Comment on above: IG% - Immature Granu locytes (promyelocytes, myelocytes and metamyelocytes) > 1% indicates that a LEFT SHIFT is Present. MCH (RBC) [Entitic mass] 29.6 pg 27.0-32.0 [facility] Work Phone: Nucleated RBC/100 WBC (Bld) [Ratio] 0 % 0-5 [facility] Work Phone: MCHC Auto (RBC) [Mass/Vol]on 05-28-2021 MCHC (RBC) [Mass/Vol] 33.2 g/dL 32-36 [facility]: No Panel Informationon 05-28 Estimated GFR (MDRD) Amer 105 mL/min >60 [facility] Work Phone: Comment on above: GFR Calc Estimated GFR (MDRD) Non-Af Amer 87 mL/min >60 [facility] Work Phone: Comment on above: Non- GFR Calc Thyroid Stimulating Hormone (TSH) 0.77 uIU/mL 0.358-3.74 [facility] Work Phone: Vitamin D 25-Hydroxy 96.7 ng/mL [facility] Work Phone: Comment on above: Vitamin D 25(OH) Sta tus Range Deficiency <20 ng/mL (50nmol/L) Insufficiency 20 - 30 ng/mL (50 - 75 nmol/L) Sufficiency 30 - 100 ng/mL (75 - 250 nmol/L) Toxicity >100 ng/mL (>250 nmol/L) Platelets bldon 05-28-2021 Platelets (Bld) [#/Vol] 230 10*3/uL 150-450 [facility] Work Phone: Serum or plasma albumin chapis urement (mass/volume)on 05-28-2021 Albumin [Mass/Vol] 3.9 g/dL 3.2-5.0 [facility] Work Phone: Serum or plasma albumin/glob ulin mass ratioon 05-28-2021 Albumin/Globulin [Mass ratio] 1.3 {ratio} 0.9-2.4 [facility] Work Phone: Serum or plasma calcium chapis urement (mass/volume)on 05-28-2021 Calcium [Mass/Vol] 9.2 mg/dL 8.5-10.1 [facility] Work Phone: Serum or plasma cholesterol in HDL measurement (mass/volume)on 05-28-2021 Cholesterol in HDL [Mass/Vol] 59 mg/dL [facility] Work Phone: Comment on above: The drugs N-Acetylcy steine and Metamizole may falsely depress this assay. Reference Range HDL <40 mg/dL Low HDL Cholesterol HDL >or= 60 mg/dL High HDL Cholesterol Serum or plasma cholesterol in VLDL measurement (mass/volume)on 05-28-2021 Cholesterol in VLDL [Mass/Vol] 14 mg/dL 5-40 [facility] Work Phone: Serum or plasma creatinine m easurement (mass/volume)on 05-28-2021 Creatinine [Mass/Vol] 0.70 mg/dL 0.55-1.02 [facility] Work Phone: Comment on above: The validity of the calculated GFR & GFRAA in patients over 70 years has not been determined. Clinical correlation is essential. Serum or plasma low density lipoprotein (LDL) cholesterol measurement (mass/volume)on 05-28-2021 Cholesterol in LDL [Mass/Vol] 86 mg/dL 0-130 [facility] Work Phone: Serum or plasma urea nitroge n measurement (mass/volume)on 05-28-2021 Urea nitrogen [Mass/Vol] 12 mg/dL 7-18 [facility] Work Phone: Thin prep Papanicolaou smear with manual screeningon 05-28-2021 Thin prep Papanicolaou smear with manual screening 15 U/L 15-37 [facility] Work Phone: Thin prep Papanicolaou smear with manual screening 4 5-15 [facility] Work Phone: Whole blood hemoglobin A1c/t otal hemoglobin ratio (mass fraction)on 05-28-2021 HbA1c (Bld) [Mass fraction] 5.3 % 3.8-5.6 [facility] Work Phone: Comment on above: Normal < 5.7 % Predi abetic 5.7 - 6.4 % Diabetic >or= 6.5 % Please note range changes. Laboratory - Microbiology an d Antimicrobial susceptibilityon 03-23-2021 SARS-CoV-2 (COVID-19) RNA ULISES+probe Ql (Unsp spec) Detected Not Detect [facility] Work Phone: Comment on above: Normal Reference Ran ge: Not DetectedMethod:(RT-PCR) real-time reverse transcriptase PCRLuminex SUKI Instrument*The Food and Drug Administration (FDA) has issued an Emergency Use Authorization (EAU) for the SUKI SARS-CoV-2 Assay for the rapid detection of the virus that causes COVID-19. This test has been validated, but the FDAs independent review of this validation is pending.*Negative results do not preclude infection and should not be used as the sole basis for treatment or patient management. Optimum specimen types and timing for peak viral levels during infections caused by SARS-CoV-2 have not been determined. Collection of multiple specimens from the same patient may be necessary to detect the virus. The possibility of a false negative result should be considered if the patient has clinical presentation or has had recent exposure. Vital Signs Date Time Vital Sign Value Performing Clinician Facility 10-18-2024 06:41-0400 Body height 165.[address] Katarina Medina MD Work Phone: [facility] 10-18-2024 06:41-0400 Body mass index (BMI) [Ratio] 25.2 kg/m2 Dr. Katarina Medina MD Work Phone: [facility] 10-18-2024 06:41-0400 Body temperature 97.5 [degF] Dr. Katarina Medina MD Work Phone: [facility] 10-18-2024 06:41-0400 Body weight 68.[address] Katarina Medina MD Work Phone: [facility] 10-18-2024 06:41-0400 Diastolic blood pressure 72 mm[Hg] Dr. Katarina Medina MD Work Phone: [facility] 10-18-2024 06:41-0400 Heart rate 69 /min Dr. Katarina Medina MD Work Phone: [facility] 10-18-2024 06:41-0400 SaO2% (BldA) [Mass fraction] 98 % Dr. Katarina Medina MD Work Phone: [facility] 10-18-2024 06:41-0400 Systolic blood pressure 148 mm[Hg] Dr. Katarina Medina MD Work Phone: [facility] 10-12-2024 09:12-0400 Diastolic blood pressure 81 mm[Hg] Treatment [facility] Work Phone: [facility] 10-12-2024 09:12-0400 Heart rate 63 /min [facility] Work Phone: [facility] 10-12-2024 09:12-0400 Systolic blood pressure 170 mm[Hg] [facility] Work Phone: [facility] 10-12-2024 08:29-0400 Body mass index (BMI) [Ratio] 25.79 kg/m2 Luis Calhouni DO Work Phone: [facility] 10-12-2024 08:29-0400 Body temperature 98.01 [degF] Luis Masci DO Work Phone: [facility] 10-12-2024 08:29-0400 Body weight 70.31 kg Luis Calhouni DO Work Phone: [facility] 10-12-2024 08:29-0400 Diastolic blood pressure 76 mm[Hg] Luis Calhouni DO Work Phone: [facility] 10-12-2024 08:29-0400 Heart rate 73 /min Luis Calhouni DO Work Phone: [facility] 10-12-2024 08:29-0400 SaO2% (BldA) [Mass fraction] 100 % Luis Calhouni DO Work Phone: [facility] 10-12-2024 08:29-0400 Systolic blood pressure 176 mm[Hg] Luis Calhouni DO Work Phone: [facility] 09-15-2024 09:52-0400 Body height 165.[address] Katarina Medina MD Work Phone: [facility] 09-15-2024 09:52-0400 Body mass index (BMI) [Ratio] 24.7 kg/m2 Dr. Katarina Medina MD Work Phone: [facility] 09-15-2024 09:52-0400 Body temperature 98.2 [degF] Dr. Katarina Medina MD Work Phone: [facility] 09-15-2024 09:52-0400 Body weight 67.[address] Katarina Medina MD Work Phone: [facility] 09-15-2024 09:52-0400 Diastolic blood pressure 71 mm[Hg] Dr. Katarina Medina MD Work Phone: [facility] 09-15-2024 09:52-0400 Heart rate 63 /min Dr. Katarina Medina MD Work Phone: [facility] 09-15-2024 09:52-0400 Respiratory rate 16 /min Dr. Katarina Medina MD Work Phone: [facility] 09-15-2024 09:52-0400 SaO2% (BldA) [Mass fraction] 96 % Dr. Katarina Medina MD Work Phone: [facility] 09-15-2024 09:52-0400 Systolic blood pressure 180 mm[Hg] Dr. Katarina Medina MD Work Phone: [facility] 09-12-2024 12:41-0400 Body temperature 98.9 [degF] Dr. Katarina Medina MD Work Phone: [facility] 09-12-2024 12:41-0400 Diastolic blood pressure 78 mm[Hg] Dr. Katarina Medina MD Work Phone: [facility] 09-12-2024 12:41-0400 Heart rate 86 /min Dr. Katarina Medina MD Work Phone: [facility] 09-12-2024 12:41-0400 Respiratory rate 16 /min Dr. Katarina Medina MD Work Phone: [facility] 09-12-2024 12:41-0400 SaO2% (BldA) [Mass fraction] 100 % Dr. Katarina Medina MD Work Phone: [facility] 09-12-2024 12:41-0400 Systolic blood pressure 145 mm[Hg] Dr. Katarina Medina MD Work Phone: [facility] 09-12-2024 08:36-0400 Body height 165.[address] Katarina Medina MD Work Phone: [facility] 09-12-2024 08:36-0400 Body mass index (BMI) [Ratio] 23.8 kg/m2 Dr. Katarina Medina MD Work Phone: [facility] 09-12-2024 08:36-0400 Body weight 64.[address] Katarina Medina MD Work Phone: [facility] 09-01-2024 16:20-0400 Body temperature 98.2 [degF] Dr. Katarina Medina MD Work Phone: [facility] 09-01-2024 16:20-0400 Diastolic blood pressure 80 mm[Hg] Dr. Katarina Medina MD Work Phone: [facility] 09-01-2024 16:20-0400 Heart rate 61 /min Dr. Katarina Medina MD Work Phone: [facility] 09-01-2024 16:20-0400 Respiratory rate 16 /min Dr. Katarina Medina MD Work Phone: [facility] 09-01-2024 16:20-0400 SaO2% (BldA) [Mass fraction] 97 % Dr. Katarina Medina MD Work Phone: [facility] 09-01-2024 16:20-0400 Systolic blood pressure 124 mm[Hg] Dr. Katarina Medina MD Work Phone: [facility] 07-20-2024 14:05-0400 Body height 165.[address] Katarina Medina MD Work Phone: [facility] 07-20-2024 09:39-0400 Diastolic blood pressure 69 mm[Hg] Treatment [facility] Work Phone: [facility] 07-20-2024 09:39-0400 Heart rate 60 /min Treatment [facility] Work Phone: [facility] 07-20-2024 09:39-0400 Systolic blood pressure 155 mm[Hg] Treatment [facility] Work Phone: [facility] 07-20-2024 08:35-0400 Body temperature 97.81 [degF] Treatment [facility] Work Phone: [facility] 07-20-2024 08:35-0400 SaO2% (BldA) [Mass fraction] 98 % [facility] Work Phone: [facility] 06-30-2024 14:34-0400 Body mass index (BMI) [Ratio] 25.5 kg/m2 Dr. Katarina Medina MD Work Phone: [facility] 06-30-2024 14:34-0400 Body temperature 98.4 [degF] Dr. Katarina Medina MD Work Phone: [facility] 06-30-2024 14:34-0400 Body weight 69.[address] Katarina Medina MD Work Phone: [facility] 06-30-2024 14:34-0400 Diastolic blood pressure 71 mm[Hg] Dr. Katarina Medina MD Work Phone: [facility] 06-30-2024 14:34-0400 Heart rate 63 /min Dr. Katarina Medina MD Work Phone: [facility] 06-30-2024 14:34-0400 Respiratory rate 16 /min Dr. Katarina Medina MD Work Phone: [facility] 06-30-2024 14:34-0400 SaO2% (BldA) [Mass fraction] 97 % Dr. Katarina Medina MD Work Phone: [facility] 06-30-2024 14:34-0400 Systolic blood pressure 181 mm[Hg] Dr. Katarina Medina MD Work Phone: [facility] 05-27-2024 15:07-0400 Diastolic blood pressure 55 mm[Hg] Airam Alvarado APRN.EQUESTRIAN TRAINER Work Phone: [facility] 05-27-2024 15:07-0400 Systolic blood pressure 159 mm[Hg] Airam Alvarado APRN.EQUESTRIAN TRAINER Work Phone: [facility] 05-27-2024 13:46-0400 Body height 165.1 cm Airam Alvarado APRN.EQUESTRIAN TRAINER Work Phone: [facility] 05-27-2024 13:46-0400 Body mass index (BMI) [Ratio] 25.24 kg/m2 Airam Alvarado APRN.EQUESTRIAN TRAINER Work Phone: [facility] 05-27-2024 13:46-0400 Body weight 68.8 kg Airam Alvarado APRN.EQUESTRIAN TRAINER Work Phone: [facility] 05-27-2024 13:46-0400 Heart rate 68 /min Airam Alvarado APRN.EQUESTRIAN TRAINER Work Phone: [facility] 04-27-2024 09:13-0500 Diastolic blood pressure 73 mm[Hg] Treatment Wstr Work Phone: [facility] Comment on above: Pt states she has talked to Dr. Asaf owen out elevated BP. Pt. takes BP at home and showed this nurse BP this am [id number]. 04-27-2024 09:13-0500 Heart rate 65 /min Treatment Wstr Work Phone: [facility] 04-27-2024 09:13-0500 Respiratory rate 18 /min Treatment Wstr Work Phone: [facility] 04-27-2024 09:13-0500 Systolic blood pressure 165 mm[Hg] Treatment Wstr Work Phone: [facility] Comment on above: Pt states she has talked to Dr. Asaf owen out elevated BP. Pt. takes BP at home and showed this nurse BP this am [id number]. 04-27-2024 08:33-0500 Body temperature 96.8 [degF] Treatment Wstr Work Phone: [facility] 04-27-2024 08:33-0500 SaO2% (BldA) [Mass fraction] 99 % Treatment Wstr Work Phone: [facility] 04-19-2024 16:00-0500 Body height 165.1 cm Oli Avery MD Work Phone: [facility] 04-19-2024 16:00-0500 Body mass index (BMI) [Ratio] 24.13 kg/m2 Oli Avery MD Work Phone: [facility] 04-19-2024 16:00-0500 Body temperature 98.01 [degF] Oli Avery MD Work Phone: [facility] 04-19-2024 16:00-0500 Body weight 65.77 kg Oli Avery MD Work Phone: [facility] 04-19-2024 16:00-0500 Diastolic blood pressure 60 mm[Hg] Oli Avery MD Work Phone: [facility] 04-19-2024 16:00-0500 Heart rate 83 /min Oli Avery MD Work Phone: [facility] 04-19-2024 16:00-0500 Respiratory rate 14 /min Oli Avery MD Work Phone: [facility] 04-19-2024 16:00-0500 SaO2% (BldA) [Mass fraction] 100 % Oli Avery MD Work Phone: [facility] 04-19-2024 16:00-0500 Systolic blood pressure 158 mm[Hg] Oli Avery MD Work Phone: [facility] 03-26-2024 12:23-0500 Blood Pressure Location SHEILA CHAN MD [facility] 03-26-2024 12:23-0500 Blood Pressure Method SHEILA CHAN MD [facility] 03-26-2024 12:23-0500 Body temperature 97.7 [degF] SHEILA CHAN MD [facility] 03-26-2024 12:23-0500 Diastolic Blood Pressure Non-Invasive 72 mm[Hg] SHEILA CHAN MD [facility] 01-17-2025 12:23-0500 Heart rate 77 /min SHEILA CHAN MD [facility] 03-26-2024 12:23-0500 Respiratory rate 18 /min SHEILA CHAN MD [facility] 03-26-2024 12:23-0500 Systolic Blood Pressure Non-Invasive 120 mm[Hg] SHEILA CHAN MD [facility] 02-03-2024 08:20-0500 Diastolic blood pressure 72 mm[Hg] Treatment Wstr Work Phone: [facility] 02-03-2024 08:20-0500 Systolic blood pressure 139 mm[Hg] Treatment Wstr Work Phone: [facility] 02-03-2024 07:48-0500 Body temperature 98.01 [degF] Treatment Wstr Work Phone: [facility] 02-03-2024 07:48-0500 Heart rate 61 /min Treatment Wstr Work Phone: [facility] 02-03-2024 07:48-0500 SaO2% (BldA) [Mass fraction] 98 % Treatment Wstr Work Phone: [facility] 11-11-2023 10:00-0400 Diastolic blood pressure 72 mm[Hg] Treatment Wstr Work Phone: [facility] 11-11-2023 10:00-0400 Heart rate 88 /min Treatment Wstr Work Phone: [facility] 11-11-2023 10:00-0400 Systolic blood pressure 166 mm[Hg] Treatment Wstr Work Phone: [facility] 11-11-2023 09:10-0400 Body mass index (BMI) [Ratio] 25.79 kg/m2 Luis Ron DO Work Phone: [facility] 11-11-2023 09:10-0400 Body temperature 98.01 [degF] Luis Masci DO Work Phone: [facility] 11-11-2023 09:10-0400 Body weight 70.31 kg Luis Ron DO Work Phone: [facility] 11-11-2023 09:10-0400 Diastolic blood pressure 91 mm[Hg] Luis Calhouni DO Work Phone: [facility] 11-11-2023 09:10-0400 Heart rate 67 /min Luis Calhouni DO Work Phone: [facility] 11-11-2023 09:10-0400 SaO2% (BldA) [Mass fraction] 99 % Luis Calhouni DO Work Phone: [facility] 11-11-2023 09:10-0400 Systolic blood pressure 168 mm[Hg] Luis Calhouni DO Work Phone: [facility] 09-25-2023 12:45-0400 Body height 165.1 cm Oli Avery MD Work Phone: [facility] 09-25-2023 12:45-0400 Body mass index (BMI) [Ratio] 23.3 kg/m2 Oli Avery MD Work Phone: [facility] 09-25-2023 12:45-0400 Body weight 63.5 kg Oli Avery MD Work Phone: [facility] 09-25-2023 12:45-0400 Diastolic blood pressure 48 mm[Hg] Oli Avery MD Work Phone: [facility] 09-25-2023 12:45-0400 Heart rate 74 /min Oli Avery MD Work Phone: [facility] 09-25-2023 12:45-0400 SaO2% (BldA) [Mass fraction] 99 % Oli Avery MD Work Phone: [facility] 09-25-2023 12:45-0400 Systolic blood pressure 151 mm[Hg] Oli Avery MD Work Phone: [facility] 08-19-2023 09:47-0400 Diastolic blood pressure 60 mm[Hg] Treatment Wstr Work Phone: [facility] 08-19-2023 09:47-0400 Systolic blood pressure 153 mm[Hg] Treatment Wstr Work Phone: [facility] 08-19-2023 08:59-0400 Body mass index (BMI) [Ratio] 24.71 kg/m2 Treatment Wstr Work Phone: [facility] 08-19-2023 08:59-0400 Body temperature 97.5 [degF] Treatment Wstr Work Phone: [facility] 08-19-2023 08:59-0400 Body weight 67.36 kg Treatment Wstr Work Phone: [facility] 08-19-2023 08:59-0400 Heart rate 66 /min Treatment Wstr Work Phone: [facility] 08-19-2023 08:59-0400 SaO2% (BldA) [Mass fraction] 100 % Treatment Wstr Work Phone: [facility] 05-28-2023 10:23-0400 Body height 165.[address] Katarina Medina Work Phone: [facility] 05-28-2023 10:23-0400 Body mass index (BMI) [Ratio] 24.1 kg/m2 Dr. Katarina Medina Work Phone: [facility] 05-28-2023 10:23-0400 Body temperature 97.6 [degF] Dr. Katarina Medina Work Phone: [facility] 05-28-2023 10:23-0400 Body weight 65.[address] Katarina Medina Work Phone: [facility] 05-28-2023 10:23-0400 Diastolic blood pressure 73 mm[Hg] Dr. Katarina Medina Work Phone: [facility] 05-28-2023 10:23-0400 Heart rate 74 /min Dr. Katarina Medina Work Phone: [facility] 05-28-2023 10:23-0400 SaO2% (BldA) [Mass fraction] 98 % Dr. Katarina Medina Work Phone: [facility] 05-28-2023 10:23-0400 Systolic blood pressure 142 mm[Hg] Dr. Katarina Medina Work Phone: [facility] 05-13-2023 10:01-0500 Diastolic blood pressure 70 mm[Hg] Treatment Wstr Work Phone: [facility] 05-13-2023 10:01-0500 Heart rate 58 /min Treatment Wstr Work Phone: [facility] 05-13-2023 10:01-0500 Systolic blood pressure 144 mm[Hg] Treatment Wstr Work Phone: [facility] 02-11-2023 09:04-0500 Diastolic blood pressure 79 mm[Hg] Treatment Wstr Work Phone: [facility] 02-11-2023 09:04-0500 Heart rate 60 /min Treatment Wstr Work Phone: [facility] 02-11-2023 09:04-0500 Systolic blood pressure 141 mm[Hg] Treatment Wstr Work Phone: [facility] 02-11-2023 08:48-0500 Body temperature 97.7 [degF] Treatment Wstr Work Phone: [facility] 01-25-2023 10:28-0500 Body height 165.[address] Katarina Medina Work Phone: [facility] 01-25-2023 10:28-0500 Body mass index (BMI) [Ratio] 24.7 kg/m2 Dr. Katarina Medina Work Phone: [facility] 01-25-2023 10:28-0500 Body temperature 98.2 [degF] Dr. Katarina Medina Work Phone: [facility] 01-25-2023 10:28-0500 Body weight 67.[address] Katarina Medina Work Phone: [facility] 01-25-2023 10:28-0500 Diastolic blood pressure 77 mm[Hg] Dr. Katarina Medina Work Phone: [facility] 01-25-2023 10:28-0500 Heart rate 81 /min Dr. Katarina Medina Work Phone: [facility] 01-25-2023 10:28-0500 Respiratory rate 16 /min Dr. Katarina Medina Work Phone: [facility] 01-25-2023 10:28-0500 SaO2% (BldA) [Mass fraction] 97 % Dr. Katarina Medina Work Phone: [facility] 01-25-2023 10:28-0500 Systolic blood pressure 186 mm[Hg] Dr. Katarina Medina Work Phone: [facility] 01-14-2023 14:12-0500 Body height 165.1 cm Mi Douglas MD Work Phone: [facility] 01-14-2023 14:12-0500 Body temperature 96.69 [degF] Mi Douglas MD Work Phone: [facility] 01-14-2023 14:12-0500 Body weight 67.68 kg Mi Douglas MD Work Phone: [facility] 01-14-2023 14:12-0500 Diastolic blood pressure 92 mm[Hg] Mi Douglas MD Work Phone: [facility] 01-14-2023 14:12-0500 Heart rate 70 /min Mi Douglas MD Work Phone: [facility] 01-14-2023 14:12-0500 SaO2% (BldA) [Mass fraction] 96 % Mi Douglas MD Work Phone: [facility] 01-14-2023 14:12-0500 Systolic blood pressure 150 mm[Hg] Mi Douglas MD Work Phone: [facility] 12-21-2022 11:43-0400 Body temperature 97.9 [degF] Pauline Muse APRN.EQUESTRIAN TRAINER Work Phone: [facility] 12-21-2022 11:43-0400 Body weight 67.31 kg Pauline Muse APRN.EQUESTRIAN TRAINER Work Phone: [facility] 12-21-2022 11:43-0400 Diastolic blood pressure 73 mm[Hg] Pauline Muse APRN.EQUESTRIAN TRAINER Work Phone: [facility] 12-21-2022 11:43-0400 Heart rate 66 /min Pauline Muse APRN.EQUESTRIAN TRAINER Work Phone: [facility] 12-21-2022 11:43-0400 Respiratory rate 18 /min Pauline Muse APRN.EQUESTRIAN TRAINER Work Phone: [facility] 12-21-2022 11:43-0400 SaO2% (BldA) [Mass fraction] 98 % Pauline Muse APRN.EQUESTRIAN TRAINER Work Phone: [facility] 12-21-2022 11:43-0400 Systolic blood pressure 189 mm[Hg] Pauline Muse APRN.EQUESTRIAN TRAINER Work Phone: [facility] 12-15-2022 10:58-0400 Body temperature 97.59 [degF] Pauline Muse APRN.EQUESTRIAN TRAINER Work Phone: [facility] 12-15-2022 10:58-0400 Body weight 67.13 kg Pauline Muse APRN.EQUESTRIAN TRAINER Work Phone: [facility] 12-15-2022 10:58-0400 Diastolic blood pressure 72 mm[Hg] Pauline Muse APRN.EQUESTRIAN TRAINER Work Phone: [facility] 12-15-2022 10:58-0400 Heart rate 80 /min Pauline Muse APRN.EQUESTRIAN TRAINER Work Phone: [facility] 12-15-2022 10:58-0400 Respiratory rate 16 /min Pauline Muse APRN.EQUESTRIAN TRAINER Work Phone: [facility] 12-15-2022 10:58-0400 SaO2% (BldA) [Mass fraction] 98 % Pauline Muse APRN.EQUESTRIAN TRAINER Work Phone: [facility] 12-15-2022 10:58-0400 Systolic blood pressure 124 mm[Hg] Pauline Muse APRN.EQUESTRIAN TRAINER Work Phone: [facility] 12-09-2022 08:01-0400 Body height 165.[address] Katarina Medina Work Phone: [facility] 12-09-2022 08:01-0400 Body mass index (BMI) [Ratio] 24.8 kg/m2 Dr. Katarina Medina Work Phone: [facility] 12-09-2022 08:01-0400 Body temperature 97.9 [degF] Dr. Katarina Medina Work Phone: [facility] 12-09-2022 08:01-0400 Body weight 67.[address] Katarina Medina Work Phone: [facility] 12-09-2022 08:01-0400 Diastolic blood pressure 73 mm[Hg] Dr. Katarina Medina Work Phone: [facility] 12-09-2022 08:01-0400 Heart rate 60 /min Dr. Katarina Medina Work Phone: [facility] 12-09-2022 08:01-0400 Respiratory rate 16 /min Dr. Katarina Medina Work Phone: [facility] 12-09-2022 08:01-0400 SaO2% (BldA) [Mass fraction] 97 % Dr. Katarina Medina Work Phone: [facility] 12-09-2022 08:01-0400 Systolic blood pressure 148 mm[Hg] Dr. Katarina Medina Work Phone: [facility] 10-28-2022 14:50-0400 Body temperature 97.59 [degF] Eva Athy PA-C Work Phone: [facility] 10-28-2022 14:50-0400 Body weight 67.41 kg Eva Athy PA-C Work Phone: [facility] 10-28-2022 14:50-0400 Diastolic blood pressure 72 mm[Hg] Eva Athy PA-C Work Phone: [facility] 10-28-2022 14:50-0400 Heart rate 65 /min Eva Athy PA-C Work Phone: [facility] 10-28-2022 14:50-0400 Respiratory rate 18 /min Eva Athy PA-C Work Phone: [facility] 10-28-2022 14:50-0400 SaO2% (BldA) [Mass fraction] 97 % Eva Athy PA-C Work Phone: [facility] 10-28-2022 14:50-0400 Systolic blood pressure 195 mm[Hg] Eva Athy PA-C Work Phone: [facility] 08-14-2022 09:55-0400 Diastolic blood pressure 62 mm[Hg] Treatment Wstr Work Phone: [facility] 08-14-2022 09:55-0400 Heart rate 78 /min Treatment Wstr Work Phone: [facility] 08-14-2022 09:55-0400 Systolic blood pressure 148 mm[Hg] Treatment Wstr Work Phone: [facility] 07-15-2022 07:27-0400 Body temperature 98.49 [degF] Izabel Flaquita CORROSION CONTROL TECHNICIAN.EQUESTRIAN TRAINER Work Phone: [facility] 07-15-2022 07:27-0400 Body weight 67.95 kg Izabel Flaquita CORROSION CONTROL TECHNICIAN.EQUESTRIAN TRAINER Work Phone: [facility] 07-15-2022 07:27-0400 Diastolic blood pressure 62 mm[Hg] Izabel Flaquita CORROSION CONTROL TECHNICIAN.EQUESTRIAN TRAINER Work Phone: [facility] 07-15-2022 07:27-0400 Heart rate 88 /min Izabel Sams CORROSION CONTROL TECHNICIAN.EQUESTRIAN TRAINER Work Phone: [facility] 07-15-2022 07:27-0400 Respiratory rate 18 /min Izabel Sams CORROSION CONTROL TECHNICIAN.EQUESTRIAN TRAINER Work Phone: [facility] 07-15-2022 07:27-0400 SaO2% (BldA) [Mass fraction] 98 % Izabel Sams CORROSION CONTROL TECHNICIAN.EQUESTRIAN TRAINER Work Phone: [facility] 07-15-2022 07:27-0400 Systolic blood pressure 128 mm[Hg] Izabel Sams CORROSION CONTROL TECHNICIAN.EQUESTRIAN TRAINER Work Phone: [facility] 05-22-2022 09:00-0400 Diastolic blood pressure 67 mm[Hg] Treatment Wstr Work Phone: [facility] 05-22-2022 09:00-0400 Heart rate 82 /min Treatment Wstr Work Phone: [facility] 05-22-2022 09:00-0400 Systolic blood pressure 160 mm[Hg] Treatment Wstr Work Phone: [facility] 05-22-2022 08:12-0400 Body height 164.7 cm Luis SHAPEi DO Work Phone: [facility] 05-22-2022 08:12-0400 Body temperature 98.71 [degF] Luis Masci DO Work Phone: [facility] 05-22-2022 08:12-0400 Body weight 68.27 kg Luis Masci DO Work Phone: [facility] 05-22-2022 08:12-0400 Diastolic blood pressure 70 mm[Hg] Luis Masci DO Work Phone: [facility] 05-22-2022 08:12-0400 Heart rate 74 /min Luis Masci DO Work Phone: [facility] 05-22-2022 08:12-0400 SaO2% (BldA) [Mass fraction] 99 % Luis Masci DO Work Phone: [facility] 05-22-2022 08:12-0400 Systolic blood pressure 158 mm[Hg] Luis Ron DO Work Phone: [facility] 01-08-2022 15:09-0400 Body height 165.1 cm Mi Douglas MD Work Phone: [facility] 01-08-2022 15:09-0400 Body temperature 97.9 [degF] Mi Douglas MD Work Phone: [facility] 01-08-2022 15:09-0400 Body weight 70.31 kg Mi Douglas MD Work Phone: [facility] 01-08-2022 15:09-0400 Diastolic blood pressure 58 mm[Hg] Mi Douglas MD Work Phone: [facility] 01-08-2022 15:09-0400 Heart rate 75 /min Mi Douglas MD Work Phone: [facility] 01-08-2022 15:09-0400 SaO2% (BldA) [Mass fraction] 97 % Mi Douglas MD Work Phone: [facility] 01-08-2022 15:09-0400 Systolic blood pressure 140 mm[Hg] Mi Douglas MD Work Phone: [facility] 12-20-2021 10:04-0400 Body temperature 98.1 [degF] Dr. Katarina Medina Work Phone: [facility] Work Phone: 12-20-2021 10:04-0400 Body weight 69.[address] Katarina Medina Work Phone: [facility] Work Phone: 12-20-2021 10:04-0400 Diastolic blood pressure 80 mm[Hg] Dr. Katarina Medina Work Phone: [facility] Work Phone: 12-20-2021 10:04-0400 Heart rate 66 /min Dr. Katarina Medina Work Phone: [facility] Work Phone: 12-20-2021 10:04-0400 Respiratory rate 16 /min Dr. Katarina Medina Work Phone: [facility] Work Phone: 12-20-2021 10:04-0400 SaO2% (BldA) [Mass fraction] 96 % Dr. Katarina Medina Work Phone: [facility] Work Phone: 12-20-2021 10:04-0400 Systolic blood pressure 156 mm[Hg] Dr. Katarina Medina Work Phone: [facility] Work Phone: 11-21-2021 09:23-0400 Diastolic blood pressure 64 mm[Hg] Treatment Wstr Work Phone: [facility] 11-21-2021 09:23-0400 Heart rate 59 /min Treatment Wstr Work Phone: [facility] 11-21-2021 09:23-0400 Systolic blood pressure 164 mm[Hg] Treatment Wstr Work Phone: [facility] 11-21-2021 08:46-0400 Body temperature 98.1 [degF] Treatment Wstr Work Phone: [facility] 11-21-2021 08:46-0400 Respiratory rate 16 /min Treatment Wstr Work Phone: [facility] 10-31-2021 15:36-0400 Diastolic blood pressure 51 mm[Hg] Dr. Katarina Medina Work Phone: [facility] Work Phone: 10-31-2021 15:36-0400 Heart rate 52 /min Dr. Katarina Medina Work Phone: [facility] Work Phone: 10-31-2021 15:36-0400 Respiratory rate 16 /min Dr. Katarina Medina Work Phone: [facility] Work Phone: 10-31-2021 15:36-0400 Systolic blood pressure 149 mm[Hg] Dr. Katarina Medina Work Phone: [facility] Work Phone: 10-31-2021 12:44-0400 Body height 165.[address] Katarina Medina Work Phone: [facility] Work Phone: 10-31-2021 12:44-0400 Body mass index (BMI) [Ratio] 26.2 kg/m2 Dr. Katarina Medina Work Phone: [facility] Work Phone: 10-31-2021 12:44-0400 Body temperature 98.1 [degF] Dr. Katarina Medina Work Phone: [facility] Work Phone: 10-31-2021 12:44-0400 Body weight 71.[address] Katarina Medina Work Phone: [facility] Work Phone: 10-31-2021 12:44-0400 SaO2% (BldA) [Mass fraction] 98 % Dr. Katarina Medina Work Phone: [facility] Work Phone: 08-15-2021 09:42-0400 Diastolic blood pressure 58 mm[Hg] Treatment Wstr Work Phone: [facility] 08-15-2021 09:42-0400 Heart rate 72 /min Treatment Wstr Work Phone: [facility] 08-15-2021 09:42-0400 Systolic blood pressure 152 mm[Hg] Treatment Wstr Work Phone: [facility] 08-15-2021 09:16-0400 Body temperature 97.59 [degF] Treatment Wstr Work Phone: [facility] 08-02-2021 13:37-0400 Body mass index (BMI) [Ratio] 25.3 kg/m2 Dr. Katarina Medina Work Phone: [facility] Work Phone: 08-02-2021 13:37-0400 Body temperature 98.1 [degF] Dr. Katarina Medina Work Phone: [facility] Work Phone: 08-02-2021 13:37-0400 Body weight 71.[address] Katarina Medina Work Phone: [facility] Work Phone: 08-02-2021 13:37-0400 Diastolic blood pressure 62 mm[Hg] Dr. Katarina Medina Work Phone: [facility] Work Phone: 08-02-2021 13:37-0400 Heart rate 63 /min Dr. Katarina Medina Work Phone: [facility] Work Phone: 08-02-2021 13:37-0400 Respiratory rate 16 /min Dr. Katarina Medina Work Phone: [facility] Work Phone: 08-02-2021 13:37-0400 SaO2% (BldA) [Mass fraction] 97 % Dr. Katarina Medina Work Phone: [facility] Work Phone: 08-02-2021 13:37-0400 Systolic blood pressure 132 mm[Hg] Dr. Katarina Medina Work Phone: [facility] Work Phone: 08-02-2021 13:37-0400 Body height 167.[address] Katarina Medina Work Phone: [facility] Work Phone: 08-02-2021 13:37-0400 Body mass index (BMI) [Ratio] 25.3 kg/m2 Dr. Katarina Medina Work Phone: [facility] Work Phone: 08-02-2021 13:37-0400 Body temperature 98.1 [degF] Dr. Katarina Medina Work Phone: [facility] Work Phone: 08-02-2021 13:37-0400 Body weight 71.[address] Katarina Medina Work Phone: [facility] Work Phone: 08-02-2021 13:37-0400 Diastolic blood pressure 62 mm[Hg] Dr. Katarina Medina Work Phone: [facility] Work Phone: 08-02-2021 13:37-0400 Heart rate 63 /min Dr. Katarina Medina Work Phone: [facility] Work Phone: 08-02-2021 13:37-0400 Respiratory rate 16 /min Dr. Katarina Medina Work Phone: [facility] Work Phone: 08-02-2021 13:37-0400 SaO2% (BldA) [Mass fraction] 97 % Dr. Katarina Medina Work Phone: [facility] Work Phone: 08-02-2021 13:37-0400 Systolic blood pressure 132 mm[Hg] Dr. Katarina Medina Work Phone: [facility] Work Phone: 05-28-2021 09:29-0400 Body height 167.[address] Katarina Medina Work Phone: [facility] Work Phone: 05-28-2021 09:29-0400 Body mass index (BMI) [Ratio] 25 kg/m2 Dr. Katarina Medina Work Phone: [facility] Work Phone: 05-28-2021 09:29-0400 Body temperature 97.9 [degF] Dr. Katarina Medina Work Phone: [facility] Work Phone: 05-28-2021 09:29-0400 Body weight 70.[address] Katarina Medina Work Phone: [facility] Work Phone: 05-28-2021 09:29-0400 Diastolic blood pressure 80 mm[Hg] Dr. Katarina Medina Work Phone: [facility] Work Phone: 05-28-2021 09:29-0400 Heart rate 58 /min Dr. Katarina Medina Work Phone: [facility] Work Phone: 05-28-2021 09:29-0400 Respiratory rate 16 /min Dr. Katarina Medina Work Phone: [facility] Work Phone: 05-28-2021 09:29-0400 SaO2% (BldA) [Mass fraction] 97 % Dr. Katarina Medina Work Phone: [facility] Work Phone: 05-28-2021 09:29-0400 Systolic blood pressure 138 mm[Hg] Dr. Katarina Medina Work Phone: [facility] Work Phone: Encounters Encounter Date Encounter Type Care Provider Facility Start: 10-18-2024 End: 10-18-[address] Katarina Medina MD Work Phone: -Laboratory Specimen Start: 10-18-2024 End: 10-18-2024 Patient encounter procedure Moose REED -Laboratory Specimen Work Phone: Start: 10-18-2024 End: 10-18-2024 Patient encounter procedure [facility]ose [facility] Work Phone: Start: 10-18-2024 End: 10-18-[address] 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 Katarina Medina MD -[facility] Work Phone: Start: 09-15-2024 End: 09-15-[address] Katarina Medina MD Work Phone: -[facility] [employer] [facility] Start: 09-12-2024 End: 09-12-2024 Emergency department patient visit Dr. Katarina Medina MD Work Phone: -Emergency Department Work Phone: Start: 09-07-2024 End: 10-07-2024 Discharged Recurring Pascual Friend DO -Nutritional Servic es Work Phone: Start: 09-07-2024 Registered Recurring Pascual Friend DO -Nutritional Servic es Work Phone: Start: 09-07-2024 End: 10-07-[address] Katarina Medina MD Work Phone: -Nutritional Services Start: 09-01-2024 End: 09-01-2024 Patient encounter procedure [facility]ose [facility] Work Phone: Start: 09-01-2024 End: 09-01-[address] Katarina Medina MD Work Phone: [facility] Work Phone: Start: 08-31-2024 End: 08-31-2024 ambulatory KATARINA MEDINA Facility:[facility] Start: 08-27-2024 End: 08-30-2024 Telephone encounter Luis Sydnee Ron Work Phone: Hematology/Oncology Comment on above: Patient Update Start: 07-30-2024 End: 07-30-2024 Patient encounter procedure Pascual Fletcher DO -[facility] Work Phone: Start: 07-30-2024 End: 07-30-2024 ambulatory Psacual Fletcher Facility:[facility] Start: 07-20-2024 End: 07-20-2024 Infusion Center Treatment Rm 6 [facility] Work Phone: Hematology/Oncology Comment on above: Disorder of iron metabolism (Primary Dx) Start: 07-19-2024 End: 07-19-2024 ambulatory KATARINA MEDINA Facility:[facility] Start: 07-16-2024 End: 07-16-[address] Katarina Medina MD Work Phone: [facility] Work Phone: Start: 07-16-2024 End: 07-16-2024 Patient encounter procedure Pascual Fletcher DO -Laboratory Work Phone: Start: 07-16-2024 End: 07-16-2024 Patient encounter procedure Pascual Fletcher DO -[facility] Work Phone: Start: 07-16-2024 End: 07-16-2024 ambulatory Pascual Fletcher Facility:[facility] Start: 07-16-2024 End: 07-16-2024 ambulatory Pascual Fletcher Facility:[facility] Start: 06-30-2024 End: 06-30-[address] Katarina Medina MD -[facility] Work Phone: Start: 06-30-2024 End: 06-30-2024 ambulatory Katarina Medina Facility:[facility] Start: 06-16-2024 End: 06-16-2024 Patient encounter procedure Jacqueline Griffiths MD Work Phone: Ophthalmology Comment on above: Primary open angle glaucoma (POAG) of le ft eye, severe stage (Primary Dx); Primary open angle glaucoma (POAG) of right eye, mild stage; Epiretinal membrane (ERM) of right eye; Exudative age-related macular degeneration of right eye with active choroidal neovascularization (HCC) Start: 06-16-2024 End: 06-16-2024 ambulatory JACQUELINE GRIFFITHS Facility:[facility] Start: 06-08-2024 End: 06-08-2024 ambulatory KATARINA EMDINA Facility:[facility] Start: 06-02-2024 End: 06-02-2024 Chart abstracting Jacqueline Griffiths MD Work Phone: Ophthalmology Start: 05-27-2024 End: 05-27-2024 ambulatory AIRAM ALVARADO Facility:[facility] Start: 05-27-2024 End: 05-27-2024 Patient encounter procedure Airam Alvarado APRN.CNP Work Phone: Functional Medicine Comment on above: Alteration in metabolic function (Primar y Dx); Brain fog; Allergy, initial encounter; High vitamin D level Start: 05-20-2024 End: 05-20-2024 E-mail encounter from caregiver Airam Alvarado APRN.CNP Work Phone: Functional Medicine Start: 05-20-2024 End: 05-20-2024 Nutrition therapy Airam Alvarado APRN.EQUESTRIAN TRAINER Work Phone: Functional Medicine Comment on above: CF Nutrition Questionnaire Start: 04-27-2024 End: 04-27-2024 Infusion Center Treatment Rm 6 [facility] Work Phone: Hematology/Oncology Comment on above: Hereditary hemochromatosis (HCC) (Primar y Dx); Disorder of iron metabolism Start: 04-26-2024 End: 04-26-2024 ambulatory KATARINA MEDINA Facility:[facility] Start: 04-19-2024 End: 04-19-2024 Office outpatient visit 25 minutes Oli Avery MD Work Phone: [facility] Comment on above: Silent cerebral infarction (HCC) (Primar y Dx); Mild cognitive impairment; Functional gastrointestinal disorder Start: 04-19-2024 End: 04-19-2024 ambulatory OLI AVERY Facility:[facility] Start: 03-26-2024 End: 03-26-2024 Emergency department patient visit SHEILA CHAN MD [facility] Start: 03-25-2024 End: 03-25-2024 ambulatory KATARINA MEDINA Facility:[facility] Start: 02-11-2024 End: 02-11-2024 ambulatory Katarina Medina Facility:[facility] Start: 02-03-2024 End: 02-03-2024 Infusion Center Treatment Rm 4 [facility] Work Phone: Hematology/Oncology Comment on above: Disorder of iron metabolism (Primary Dx) Start: 02-02-2024 End: 02-02-2024 Orders Only Luis Ron DO Work Phone: Hematology/Oncology Comment on above: Hereditary hemochromatosis (HCC) (Primar y Dx) Start: 01-16-2024 End: 01-16-2024 ambulatory LUIS RON Facility:[facility] Start: 01-16-2024 End: 01-16-2024 Subsequent hospital visit by physician Screen Mamm[facility] Mammogram Comment on above: Encounter for screening breast examinati on [Z12.39] Start: 12-02-2023 End: 12-02-2023 ambulatory Katarina Medina Facility:[facility] Start: 11-21-2023 End: 11-21-2023 ambulatory Alan REED Facility:[facility] Start: 11-20-2023 End: 11-20-2023 ambulatory Katarina Medina Facility:[facility] Start: 11-13-2023 End: 11-13-2023 ambulatory Katarina Medina Facility:[facility] Start: 11-11-2023 End: 11-11-2023 ambulatory Luis Ron DO Work Phone: Hematology/Oncology Comment on above: Hereditary hemochromatosis (HCC) (Primar y Dx); Encounter for screening breast examination Hereditary hemochrom atosis (HCC) (Primary Dx); Disorder of iron metabolism Start: 11-11-2023 End: 11-11-2023 Patient encounter procedure Luis Ron DO Work Phone: Hematology/Oncology Start: 11-07-2023 End: 11-07-2023 ambulatory KATARINA MEDINA Facility:[facility] Start: 10-01-2023 Telephone encounter Mi Douglas MD Work Phone: [address] [place] [address] Start: 09-29-2023 Telephone encounter Oli Avery MD Work Phone: [facility] Comment on above: 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) Start: 09-25-2023 End: 09-25-2023 Patient encounter procedure Oli Avery MD Work Phone: C[facility]bro[facility] Center Comment on above: Hypercholesterolemia (Primary Dx); History of CVA (cerebrovascular accident); Anxiety about health; Mild cognitive impairment; Remote history of stroke Start: 09-02-2023 End: 09-02-2023 Subsequent hospital visit by physician Mri Transportation Bl (Lg Bore/3t) Radiology Comment on above: Impaired memory [R41.3] Start: 08-19-2023 End: 08-19-2023 Infusion Center Treatment Rm 7 [facility] Work Phone: Hematology/Oncology Comment on above: Disorder of iron metabolism (Primary Dx) Start: 08-15-2023 ambulatory Airam Martinez APRN.CNP Work Phone: Neurology Comment on above: Update Start: 08-15-2023 E-mail encounter from caregiver Airam Martinez APRN.CNP Work Phone: Neurology Start: 08-15-2023 End: 08-15-2023 Patient encounter procedure Airam Martinez APRN.CNP Work Phone: Neurology Comment on above: Subjective memory complaints (Primary Dx ); Impaired memory; Forgetfulness Start: 08-11-2023 Telephone encounter Luis A Masci DO Work Phone: Hematology/Oncology Comment on above: Patient Question Start: 08-09-2023 End: 08-09-2023 Patient encounter procedure Pauline Muse APRN.EQUESTRIAN TRAINER Work Phone: [facility] Comment on above: Medication management (Primary Dx) Start: 07-01-2023 Non-patient / Non-visit Dr. Katarina Medina Work Phone: [facility] Start: 07-01-2023 End: 07-01-[address] Katarina Medina Work Phone: [facility] Work Phone: Start: 07-01-2023 End: 07-01-[address] Katarina Medina Work Phone: [facility]-Cardiovascula r Services Work Phone: Start: 05-28-2023 End: 05-28-[address] Katarina Medina Work Phone: [facility] Work Phone: Start: 05-13-2023 End: 05-13-2023 Infusion Center Treatment Rm 9 [facility] Work Phone: Hematology/Oncology Comment on above: Disorder of iron metabolism (Primary Dx) Start: 05-08-2023 Telephone encounter Sonia Martinez APRN.EQUESTRIAN TRAINER Work Phone: Hematology/Oncology Comment on above: Patient Update Start: 02-14-2023 Telephone encounter Mi Douglas MD Work Phone: General Surgery Start: 02-11-2023 End: 02-11-2023 Infusion Center Treatment Rm 12 [facility] Work Phone: Hematology/Oncology Comment on above: Disorder of iron metabolism (Primary Dx) Start: 02-10-2023 Orders Only Luis Ron DO Work Phone: Hematology/Oncology Comment on above: Hereditary hemochromatosis (HCC) (Primar y Dx); Secondary polycythemia Start: 01-27-2023 End: 01-27-[address] Katarina Medina Work Phone: [facility] Work Phone: Start: 01-27-2023 End: 01-27-[address] Katarina Medina Work Phone: [facility]-Laboratory, Specimen Work Phone: Start: 01-25-2023 End: 01-25-[address] Katarina Medina Work Phone: [facility] Work Phone: Start: 01-14-2023 End: 01-14-2023 Patient encounter procedure Mi Douglas MD Work Phone: General Surgery Comment on above: Screening for colon cancer (Primary Dx) Start: 01-07-2023 End: 01-07-2023 Subsequent hospital visit by physician Screen Mammo [facility] Mammogram Comment on above: Screening breast examination [Z12.39] Start: 12-26-2022 Telephone encounter Pauline Muse APRN.EQUESTRIAN TRAINER Work Phone: [facility] Comment on above: Results Start: 12-21-2022 End: 12-21-2022 Patient encounter procedure Pauline Muse APRN.EQUESTRIAN TRAINER Work Phone: [facility] Comment on above: Rectal bleeding (Primary Dx) Start: 12-15-2022 End: 12-15-2022 Patient encounter procedure Pauline Muse APRN.EQUESTRIAN TRAINER Work Phone: [facility] Comment on above: Urinary frequency (Primary Dx); Recurrent UTI (urinary tract infection) Start: 12-09-2022 End: 12-09-[address] Katarina Medina Work Phone: [facility]-Laboratory Work Phone: Start: 12-09-2022 End: 12-09-[address] Katarina Medina Work Phone: [facility] Work Phone: Start: 11-01-2022 End: 11-01-[address] Katarina Medina Work Phone: [facility] Work Phone: Start: 11-01-2022 End: 11-01-[address] Katarina Medina Work Phone: [facility]-Laboratory Work Phone: Start: 10-28-2022 End: 10-28-2022 Patient encounter procedure Eva Heard PA-C Work Phone: [facility] Comment on above: Throat irritation (Primary Dx) Start: 10-25-2022 Telephone encounter Mi Douglas MD Work Phone: [place] Provider Adult Comment on above: Orders Start: 10-24-2022 Telephone encounter Mi Douglas MD Work Phone: General Surgery Comment on above: Orders Start: 08-14-2022 End: 08-14-2022 Infusion Center Treatment Rm 7 [facility] Work Phone: Hematology/Oncology Comment on above: Disorder of iron metabolism (Primary Dx) ; Hereditary hemochromatosis (HCC) Start: 08-12-2022 Orders Only Luis Ron DO Work Phone: Hematology/Oncology Comment on above: Hereditary hemochromatosis (HCC) (Primar y Dx); Secondary polycythemia; History of ductal carcinoma in situ (DCIS) of breast Start: 07-15-2022 End: 07-15-2022 Patient encounter procedure Izabel Sams APRN.EQUESTRIAN TRAINER Work Phone: [facility] Comment on above: URI with cough and congestion (Primary D x) Start: 06-13-2022 Telephone encounter Luis Ron DO Work Phone: Hematology/Oncology Comment on above: Results (US Liver) Start: 06-03-2022 End: 06-03-2022 Subsequent hospital visit by physician [facility] Work Phone: Radiology Comment on above: Hereditary hemochromatosis (HCC) [E83.11 0] Start: 05-22-2022 End: 05-22-2022 ambulatory Luis Ron DO Work Phone: Hematology/Oncology Comment on above: Hereditary hemochromatosis (HCC) (Primar y Dx); Secondary polycythemia; History of ductal carcinoma in situ (DCIS) of breast Hereditary hemochrom atosis (HCC) (Primary Dx); Disorder of iron metabolism Start: 05-22-2022 End: 05-22-2022 Patient encounter procedure Luis Ron DO Work Phone: [facility] Start: 05-21-2022 Orders Only Luis Ron DO Work Phone: Hematology/Oncology Comment on above: Hereditary hemochromatosis (HCC) (Primar y Dx) Start: 02-25-2022 Telephone encounter Luis Ron DO Work Phone: Hematology/Oncology Comment on above: Appointment Start: 02-08-2022 Telephone encounter Luis Ron DO Work Phone: Hematology/Oncology Comment on above: Appointment Start: 01-08-2022 End: 01-08-2022 Patient encounter procedure Mi Douglas MD Work Phone: General Surgery Comment on above: Ductal carcinoma in situ (DCIS) of left breast (Primary Dx) Start: 01-04-2022 Documentation procedure Mammography Coordinator [facility] Start: 01-04-2022 Letter encounter Mammography Coordinator [facility] Department Start: 01-03-2022 End: 01-03-2022 Subsequent hospital visit by physician Screen Mammo [facility] Mammogram Comment on above: 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 Katarina Medina Work Phone: [facility] Work Phone: Start: 12-20-2021 End: 12-20-[address] Katarina Medina Work Phone: [facility]-Laboratory Start: 12-20-2021 End: 12-20-[address] Katarina Medina Work Phone: [facility] Start: 11-21-2021 End: 11-21-2021 Infusion Center Treatment Rm 11 [facility] Work Phone: Hematology/Oncology Comment on above: Disorder of iron metabolism (Primary Dx) Start: 10-31-2021 End: 10-31-2021 Emergency department patient visit Dr. Katarina Medina Work Phone: [facility]-Emergency Department Start: 10-30-2021 Telephone encounter Luis Ron DO Work Phone: Hematology/Oncology Comment on above: Future Appointment Start: 08-16-2021 End: 08-16-[address] Katarina Medina Work Phone: [facility]-Outpatient Bone Densitometry Start: 08-15-2021 End: 08-15-2021 Infusion Center Treatment Rm 6 [facility] Work Phone: Hematology/Oncology Comment on above: Hereditary hemochromatosis (HCC) (Primar y Dx); Disorder of iron metabolism Start: 08-02-2021 End: 08-02-[address] Katarina Medina [facility] Start: 08-02-2021 End: 08-02-[address] Katarina Medina Work Phone: [facility] Start: 07-18-2021 Telephone encounter Luis Ron DO Work Phone: Hematology/Oncology Comment on above: Appointment Start: 05-28-2021 End: 05-28-[address] Katarina Medina [facility] Start: 05-28-2021 End: 05-28-[address] Katarina Medina Work Phone: [facility] Start: 03-23-2021 End: 03-23-[address] Katarina Medina Work Phone: [facility]-Laboratory, Specimen Procedures Date Procedure Procedure Detail Performing Clinician Start: 10-18-[address] Katarina Medina MD Work Phone: Start: 09-12-2024 X-ray of knee, four or more views Dr. Katarina Medina MD Work Phone: Start: 09-12-2024 X-ray of chest, PA and lateral views Dr. Katarina Medina MD Work Phone: Start: 07-16-2024 Albumin/Globulin ratio Dr. Katarina zamora MD Work Phone: Start: 07-16-[address] Katarina Mednia MD Work Phone: Start: 06-16-2024 Computerized ophthalmic imaging optic nerve Jacqueline Griffiths MD Work Phone: Start: 09-02-2023 3d rendering w/interp&postproc diff work station Airam Martinez APRN.EQUESTRIAN TRAINER Work Phone: Start: 09-02-2023 Mri brain brain stem w/o contrast material Airam Martinez APRN.EQUESTRIAN TRAINER Work Phone: Start: 01-27-[address] Katarina Medina Work Phone: Start: 01-07-2023 Screening mammography bi 2-view breast inc cory Douglas MD Work Phone: Start: 12-15-2022 Urnls dip stick/tablet rgnt auto w/o microscopy Zo Boyce APRN.EQUESTRIAN TRAINER Work Phone: Start: 06-03-2022 Us abdominal real time w/image limited Luis Ron DO Work Phone: Start: 01-03-2022 Screening mammography bi 2-view breast inc cory Douglas MD Work Phone: Start: 10-31-2021 CT of head without contrast Dr. Katarina Medina Work Phone: Start: 08-16-2021 Dual energy X-ray absorptiometry Dr. Katarina Medina Work Phone: Start: 01-30-2018 Adult depression screening assessment Luis Ron DO Work Phone: History of cataract extraction History of cataract surgery Dr. Katarina Medina Work Phone: History of cholecystectomy History of cholecystectomy Dr. Katarina Medina Work Phone: Plan of Treatment Date Care Activity Detail Author Start: 10-16-2028 Urine microalbumin profile DTaP,Tdap,Td Vaccine (3 - Td or Tdap) [facility] Start: 01-31-2028 Urine microalbumin profile [facility] Start: 10-12-2027 Diabetes Screening Diabetes Screening [facility] Start: 02-01-2027 Diabetes Screening Diabetes Screening [facility] Start: 11-06-2026 Diabetes Screening Diabetes Screening [facility] Start: 09-25-2026 Diabetes Screening Diabetes Screening [facility] Start: 05-11-2026 Diabetes Screening Diabetes Screening [facility] Start: 10-12-2025 End: 10-12-2025 ambulatory [facility] B[facility] Laboratory Comment on above: CBC/IRON STUDIES/CMP/AFP 1YR OV/EARLY LABS Start: 05-21-2025 DIABETES SCREEN DIABETES SCREEN [facility] Start: 05-21-2025 Diabetes Screening Diabetes Screening [facility] Start: 01-04-2025 End: 01-04-2025 ambulatory 01/04/2025 9:00 AM EDT [facility] Hematology/Oncology [address] [place] [address] Q3MO PHLEBO/LAB DAY PRIOR* Hematology/Oncology Comment on above: Q3MO PHLEBO/LAB DAY PRIOR* Start: 01-03-2025 End: 01-03-2025 ambulatory 01/03/2025 8:00 AM EDT Results Only [facility] B[facility] Laboratory [address] [place] [address] (SO)CBC/FERRITN* [facility] Comment on above: (SO)CBC/FERRITN* Start: 11-10-2024 End: 11-10-2024 ambulatory [facility] Comment on above: CBC/CMP/AFR/IRON* 1YR/PHLEBO TODAY* Start: 11-08-2024 Influenza vaccination [facility] Start: 10-12-2024 End: 10-12-2024 ambulatory Hematology/Oncology Comment on above: 1YR/LAB 10/11/PHLEBO TODAY* Q3MO PHLEBO/LAB 10/11/ OV EARLY* pt request lab day prior to tx Start: 10-11-2024 End: 10-11-2024 ambulatory 10/11/2024 8:00 AM EDT Results Only [facility] [address] [place] [address] (SO)CBC/CMP/IRON STUDIES/AFR* [facility] Comment on above: (SO)CBC/CMP/IRON STUDIES/AFR* Start: 09-12-2024 End: 09-12-2024 [facility] Start: 09-12-2024 X-ray of knee, four or more views Knee 4 or More Views [facility] Start: 09-12-2024 XR Knee GE 4 Views [facility] Start: 08-23-2024 End: 08-23-2024 Patient encounter procedure 08/23/2024 10:15 AM EDT Office Visit Functional Medicine [address] [address] Airam Alvarado APRN.EQUESTRIAN TRAINER [address] [address] 12 week follow up Functional Medicine Comment on above: 12 week follow up Start: 07-30-2024 Patient referral [facility] Work Phone: Start: 07-20-2024 End: 07-20-2024 ambulatory 07/20/2024 9:00 AM EDT [facility] Hematology/Oncology [address] [place] [address] Q3MO PHLEBO/LAB 07/19* pt request lab day prior to tx Hematology/Oncology Comment on above: Q3MO PHLEBO/LAB 07/19* pt request lab day prior to tx Start: 07-19-2024 End: 07-19-2024 ambulatory Aurora Boo [facility] Laboratory Comment on above: (SO)CBC/CMP/IRON STUDIES* (SO)CBC/FERRITN* Start: 06-16-2024 End: 06-16-2024 Patient encounter procedure Ophthalmology Comment on above: UNCONTROLLED GLAUCOMA POSSIBLE OPEN ANGL E [IOP, dilate, OCT RN FL] UNCONTROLLED GLAUCOMA POSSIBLE OPEN ANGLE Start: 06-15-2024 End: 06-15-2024 ambulatory 06/15/2024 10:15 AM EDT Education Functional Medicine [address] nutrtition Functional Medicine Comment on above: nutrtition Start: 06-03-2024 End: 06-03-2024 ambulatory 06/03/2024 10:30 AM EDT Education Functional Medicine [address] [address] Sharlene Alberts, [facility] ED [address] [id number] health assistant track and field coach Functional Medicine Comment on above: health assistant track and field coach Start: 05-27-2024 End: 05-27-2024 ambulatory 05/27/2024 3:15 PM EDT Results Only [facility] [address] [place] [id number] LAB [facility] Comment on above: LAB Start: 05-27-2024 End: 08-26-2024 25-hydroxyvitamin D3 [Mass/volume] in Serum or Plasma VITAMIN D 25 HYDROXY Lab Routine Alteration in metabolic function Brain fog Allergy, initial encounter Expected: 05/27/2024, Expires: 08/26/2024 [facility] Comment on above: Expected: 05/27/2024, Expires: Start: 05-27-2024 End: 08-26-2024 Arsenic [Mass/volume] in Blood ARSENIC BLD Lab Routine Alteration in metabolic function Brain fog Allergy, initial encounter Expected: 05/27/2024, Expires: 08/26/2024 [facility] Comment on above: Expected: 05/27/2024, Expires: Start: 05-27-2024 End: 08-26-2024 Cadmium [Mass/volume] in Blood CADMIUM BLOOD Lab Routine Alteration in metabolic function Brain fog Allergy, initial encounter Expected: 05/27/2024, Expires: 08/26/2024 [facility] Comment on above: Expected: 05/27/2024, Expires: Start: 05-27-2024 End: 08-26-2024 Cobalamin (Vitamin B12) [Mass/volume] in Serum or Plasma VITAMIN B12 Lab Routine Alteration in metabolic function Brain fog Allergy, initial encounter Expected: 05/27/2024, Expires: 08/26/2024 [facility] Comment on above: Expected: 05/27/2024, Expires: Start: 05-27-2024 End: 08-26-2024 COPPER BLOOD COPPER BLOOD Lab Routine Alteration in metabolic function Brain fog Allergy, initial encounter Expected: 05/27/2024, Expires: 08/26/2024 [facility] Comment on above: Expected: 05/27/2024, Expires: Start: 05-27-2024 End: 08-26-2024 Folate [Mass/volume] in Serum or Plasma FOLATE, SERUM Lab Routine Alteration in metabolic function Brain fog Allergy, initial encounter Expected: 05/27/2024, Expires: 08/26/2024 [facility] Comment on above: Expected: 05/27/2024, Expires: Start: 05-27-2024 End: 08-26-2024 Hemoglobin A1c in Blood HEMOGLOBIN A1C Lab Routine Alteration in metabolic function Brain fog Allergy, initial encounter Expected: 05/27/2024, Expires: 08/26/2024 [facility] Comment on above: Expected: 05/27/2024, Expires: Start: 05-27-2024 End: 08-26-2024 Insulin [Units/volume] in Serum or Plasma INSULIN, TOTAL, SERUM Lab Routine Alteration in metabolic function Brain fog Allergy, initial encounter Expected: 05/27/2024, Expires: 08/26/2024 [facility] Comment on above: Expected: 05/27/2024, Expires: Start: 05-27-2024 End: 08-26-2024 Lead [Mass/volume] in Blood LEAD BLOOD Lab Routine Alteration in metabolic function Brain fog Allergy, initial encounter Expected: 05/27/2024, Expires: 08/26/2024 [facility] Comment on above: Expected: 05/27/2024, Expires: Start: 05-27-2024 End: 08-26-2024 Magnesium [Mass/volume] in Serum or Plasma MAGNESIUM Lab Routine Alteration in metabolic function Brain fog Allergy, initial encounter Expected: 05/27/2024, Expires: 08/26/2024 [facility] Work Phone: Comment on above: Expected: 05/27/2024, Expires: Start: 05-27-2024 End: 08-26-2024 Mercury [Mass/volume] in Blood MERCURY BLD Lab Routine Alteration in metabolic function Brain fog Allergy, initial encounter Expected: 05/27/2024, Expires: 08/26/2024 [facility] Comment on above: Expected: 05/27/2024, Expires: Start: 05-27-2024 End: 08-26-2024 OMEGACHECK OMEGACHECK Lab Routine Alteration in metabolic function Brain fog Allergy, initial encounter Expected: 05/27/2024, Expires: 08/26/2024 [facility] Comment on above: Expected: 05/27/2024, Expires: Start: 05-27-2024 End: 05-27-2024 Patient encounter procedure 05/27/2024 2:00 PM EDT Office Visit Functional Medicine [address] [address] Airam Alvarado APRN.EQUESTRIAN TRAINER [address] [address] Functional gastrointestinal disorder [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.9] / BRAIN FOG Functional Medicine Comment on above: Functional gastrointestinal disorder [K9 2.9] / BRAIN FOG Start: 05-27-2024 End: 08-26-2024 THYROGLOBULIN ANTIBODY THYROGLOBULIN ANTIBODY Lab Routine Alteration in metabolic function Brain fog Allergy, initial encounter Expected: 05/27/2024, Expires: 08/26/2024 [facility] Comment on above: Expected: 05/27/2024, Expires: Start: 05-27-2024 End: 08-26-2024 THYROID PEROXIDASE ANTIBODY THYROID PEROXIDASE ANTIBODY Lab Routine Alteration in metabolic function Brain fog Allergy, initial encounter Expected: 05/27/2024, Expires: 08/26/2024 [facility] Comment on above: Expected: 05/27/2024, Expires: Start: 05-27-2024 End: 08-26-2024 Thyrotropin [Units/volume] in Serum or Plasma THYROID STIMULATING HORMONE Lab Routine Alteration in metabolic function Brain fog Allergy, initial encounter Expected: 05/27/2024, Expires: 08/26/2024 [facility] Comment on above: Expected: 05/27/2024, Expires: Start: 05-27-2024 End: 08-26-2024 Thyroxine (T4) free [Mass/volume] in Serum or Plasma T4 FREE/FREE THYROXINE Lab Routine Alteration in metabolic function Brain fog Allergy, initial encounter Expected: 05/27/2024, Expires: 08/26/2024 [facility] Comment on above: Expected: 05/27/2024, Expires: Start: 05-27-2024 End: 08-26-2024 Triiodothyronine (T3) Free [Mass/volume] in Serum or Plasma T3, FREE Lab Routine Alteration in metabolic function Brain fog Allergy, initial encounter Expected: 05/27/2024, Expires: 08/26/2024 [facility] Comment on above: Expected: 05/27/2024, Expires: Start: 05-27-2024 End: 08-26-2024 VITAMIN B1 (THIAMINE), WHOLE BLOOD VITAMIN B1 (THIAMINE), WHOLE BLOOD Lab Routine Alteration in metabolic function Brain fog Allergy, initial encounter Expected: 05/27/2024, Expires: 08/26/2024 [facility] Comment on above: Expected: 05/27/2024, Expires: Start: 05-27-2024 End: 08-26-2024 Zinc [Mass/volume] in Serum or Plasma ZINC BLD Lab Routine Alteration in metabolic function Brain fog Allergy, initial encounter Expected: 05/27/2024, Expires: 08/26/2024 [facility] Comment on above: Expected: 05/27/2024, Expires: Start: 05-16-2024 DIABETES SCREEN DIABETES SCREEN [facility] Start: 04-27-2024 End: 04-27-2024 ambulatory Hematology/Oncology Comment on above: Q3MO PHLEBO/LAB 04/26* pt request lab day prior to tx NEEDS TO SCHEDULE FO July/Q3MO PHLEBO/LAB 04/26* pt request lab day prior to tx Start: 04-26-2024 End: 04-26-2024 ambulatory [place] [facility] Laboratory Comment on above: (SO)CBC/CMP/IRON STUDIES* Start: 04-01-2024 End: 04-01-2024 Patient encounter procedure 04/01/2024 11:30 AM EST Office Visit [facility] [address] [place] [address] Oli Avery MD [address] [place] [address] 6 month f/u [facility] Comment on above: 6 month f/u Start: 03-10-2024 Advance Directive Discussion Advance Directive Discussion [facility] Start: 03-10-2024 Medicare Advantage Annual Wellness Visit Medicare Advantage Annual Wellness Visit [facility] Start: 02-03-2024 End: 02-03-2024 ambulatory 02/03/2024 8:30 AM EST Infusion Center Hematology/Oncology [address] [place], [place] [address] [place] [address] Q3MO PHLEBO/LAB 02/01* pt request lab day prior to tx Hematology/Oncology Comment on above: Q3MO PHLEBO/LAB 02/01* pt request lab da y prior to tx Start: 02-02-2024 End: 05-03-2024 Ferritin [Mass/volume] in Serum or Plasma [facility] Work Phone: Comment on above: Expected: 02/02/2024, Expires: Start: 02-02-2024 End: 05-03-2024 Iron and Iron binding capacity panel - Serum or Plasma [facility] Comment on above: Expected: 02/02/2024, Expires: Start: 02-02-2024 End: 02-02-2024 ambulatory [facility] Laboratory Comment on above: (SO)CBC/CMP/IRON STUDIES* Start: 01-16-2024 End: 01-16-2024 Patient encounter procedure 01/16/2024 8:30 AM EST Appointment Mammogram [address] [place] [address] Encounter for screening breast examination [Z12.39] Mammogram Comment on above: Encounter for screening breast examinati on [Z12.39] Start: 01-06-2024 End: 01-06-2024 ambulatory 01/06/2024 8:30 AM EDT [facility] Hematology/Oncology [address] [place] [address] Q3MO PHLEBO/LAB 11/06,OV EARLY/* pt request lab day prior to tx Hematology/Oncology Comment on above: Q3MO PHLEBO/LAB 11/06,OV EARLY/* pt reque st lab day prior to tx Start: 01-05-2024 End: 01-05-2024 ambulatory 01/05/2024 8:30 AM EDT Results [facility] [address] [place] [address] (SO)CBC/CMP/IRON STUDIES* [facility] Laboratory Comment on above: (SO)CBC/CMP/IRON STUDIES* Start: 11-11-2023 End: 11-11-2023 ambulatory Hematology/Oncology Comment on above: 6 MO OV/LAB 11/06/?PHLEBO TODAY* Q3MO PHLEBO/LAB 11/06 ,OV EARLY/* pt request lab day prior to tx Start: 11-09-2023 Covid-19 Vaccine () Covid-19 Vaccine () [facility] Start: 11-09-2023 Covid-19 Vaccine ( season) Covid-19 Vaccine ( season) [facility] Start: 11-09-2023 Influenza vaccination [facility] Start: 11-07-2023 End: 11-07-2023 ambulatory 11/07/2023 8:00 AM EDT Results Only [place] [facility] Laboratory [address] [place] [address] (SO)CBC/CMP/IRON STUDIES* [facility] Laboratory Comment on above: (SO)CBC/CMP/IRON STUDIES* Start: 09-26-2023 End: 09-26-2023 ambulatory 09/26/2023 8:45 AM EDT Results Only [facility] [address] [place] [address] lab [facility] Comment on above: lab Start: 09-25-2023 End: 12-25-2023 Hemoglobin A1c in Blood HEMOGLOBIN A1C Lab Routine History of CVA (cerebrovascular accident) Expected: 09/25/2023, Expires: 12/25/2023 [facility] Comment on above: Expected: 09/25/2023, Expires: Start: 09-25-2023 End: 12-25-2023 LIPID PANEL, NONFASTING LIPID PANEL, NONFASTING Lab Routine Hypercholesterolemia Expected: 09/25/2023, Expires: 12/25/2023 [facility] Work Phone: Comment on above: Expected: 09/25/2023, Expires: Start: 09-02-2023 End: 09-02-2023 Patient encounter procedure 09/02/2023 1:30 PM EDT Appointment Radiology [address] [place], [place] [id number] MRI BRAIN WO IVCON Radiology Comment on above: MRI BRAIN WO IVCON Start: 08-19-2023 End: 08-19-2023 ambulatory 08/19/2023 9:00 AM EDT Infusion Center Hematology/Oncology [address] [place] [address] Q3MO PHLEBO/LAB 07/31* pt request lab day prior to tx - Hematology/Oncology Comment on above: Q3MO PHLEBO/LAB 07/31* pt request lab day prior to tx - Start: 08-18-2023 End: 08-18-2023 ambulatory [place] [facility] Laboratory Comment on above: (SO)CBC/IRON STUDIES* Start: 08-15-2023 End: 11-14-2023 Cobalamin (Vitamin B12) [Mass/volume] in Serum or Plasma VITAMIN B12 Lab Routine Impaired memory Forgetfulness Expected: 08/15/2023, Expires: 11/14/2023 [facility] Work Phone: Comment on above: Expected: 08/15/2023, Expires: Start: 08-15-2023 End: 11-14-2023 Folate [Mass/volume] in Serum or Plasma FOLATE, SERUM Lab Routine Impaired memory Forgetfulness Expected: 08/15/2023, Expires: 11/14/2023 [facility] Comment on above: Expected: 08/15/2023, Expires: Start: 08-15-2023 End: 11-14-2023 Methylmalonate [Moles/volume] in Serum or Plasma METHYLMALONIC ACID Lab Routine Impaired memory Forgetfulness Expected: 08/15/2023, Expires: 11/14/2023 [facility] Comment on above: Expected: 08/15/2023, Expires: Start: 08-15-2023 End: 11-14-2023 Thyrotropin [Units/volume] in Serum or Plasma THYROID STIMULATING HORMONE Lab Routine Impaired memory Forgetfulness Expected: 08/15/2023, Expires: 11/14/2023 [facility] Comment on above: Expected: 08/15/2023, Expires: Start: 08-15-2023 End: 08-15-2023 Patient encounter procedure 08/15/2023 9:30 AM EDT Office Visit Neurology [address] [place] [address] Airam Martinez APRN.EQUESTRIAN TRAINER [address] [place] [address] Evaluation for memory Neurology Comment on above: Evaluation for memory Start: 03-10-2023 Advance Directive Discussion Advance Directive Discussion [facility] Start: 03-10-2023 Behavioral Health Screening Behavioral Health Screening [facility] Start: 03-10-2023 Depression Assessment Depression Assessment [facility] Start: 11-08-2022 Covid-19 Vaccine ( season) Covid-19 Vaccine () [facility] Start: 11-08-2022 Influenza vaccination [facility] Start: 06-13-2022 End: 08-13-2022 Chronic hepatitis differentiation between hepatitis B and C virus panel - Serum or Plasma HEP REMOTE PANEL BL Lab Routine Hereditary hemochromatosis (HCC) Expected: 06/13/2022, Expires: 08/13/2022 [facility] Work Phone: Comment on above: Expected: 06/13/2022, Expires: 3 Start: 06-13-2022 End: 08-13-2022 Gamma glutamyl transferase [Enzymatic activity/volume] in Serum or Plasma GGT BLD Lab Routine Hereditary hemochromatosis (HCC) Expected: 06/13/2022, Expires: 08/13/2022 [facility] Work Phone: Comment on above: Expected: 06/13/2022, Expires: 3 Start: 06-13-2022 End: 08-13-2022 Lipid 1996 panel - Serum or Plasma LIPID PANEL BASIC Lab Routine Hereditary hemochromatosis (HCC) Expected: 06/13/2022, Expires: 08/13/2022 [facility] Work Phone: Comment on above: Expected: 06/13/2022, Expires: 3 Start: 05-22-2022 End: 07-22-2022 [id number] [Mass/volume] in Serum or Plasma ALPHA FETOPROTEIN BL Lab Routine Hereditary hemochromatosis (HCC) Expected: 05/22/2022, Expires: 07/22/2022 [facility] Work Phone: Comment on above: Expected: 05/22/2022, Expires: 3 Start: 05-22-2022 End: 07-22-2022 Comprehensive metabolic 2000 panel - Serum or Plasma COMP METABOLIC PANEL Lab STAT Hereditary hemochromatosis (HCC) Expected: 05/22/2022, Expires: 07/22/2022 [facility] Work Phone: Comment on above: Expected: 05/22/2022, Expires: 3 Start: 03-10-2022 ADVANCE DIRECTIVE DISCUSSION ADVANCE DIRECTIVE DISCUSSION [facility] Start: 03-10-2022 DEPRESSION ASSESSMENT DEPRESSION ASSESSMENT [facility] Start: 12-20-2021 [facility] Work Phone: Start: 11-08-2021 Influenza vaccination [facility] Start: 03-10-2021 ADVANCE DIRECTIVE DISCUSSION ADVANCE DIRECTIVE DISCUSSION [facility] Start: 03-10-2021 DEPRESSION ASSESSMENT DEPRESSION ASSESSMENT [facility] Start: 09-14-2020 ANNUAL PCP TEAM CHRONIC DISEASE VISIT ANNUAL PCP TEAM CHRONIC DISEASE VISIT [facility] Start: 2019 RSV Vaccine (1 - 1-dose 75+ series) RSV Vaccine (1 - 1-dose 75+ series) [facility] Start: 01-30-2019 Adult depression screening assessment DEPRESSION SCREENING [facility] Start: 2009 Pneumococcal Vaccine: 65+ (1 of 1 - PCV) Pneumococcal Vaccine: 65+ (1 of 1 - PCV) [facility] Start: 2004 RSV Vaccine (1 - 1-dose 60+ series) RSV Vaccine (1 - 1-dose 60+ series) [facility] Start: 1994 Pneumococcal Vaccine: 50+ (1 of 1 - PCV) Pneumococcal Vaccine: 50+ (1 of 1 - PCV) [facility] Start: 1994 SHINGRIX VACCINE (1 of 2) SHINGRIX VACCINE (1 of 2) [facility] Start: 1962 Annual PCP Team Chronic Disease Visit Annual PCP Team Chronic Disease Visit [facility] Start: 1962 Depression Screening Depression Screening [facility] Start: 1962 SPIROMETRY SPIROMETRY [facility] Start: 1950 Pneumococcal Vaccine: 65+ (1 - PCV) Pneumococcal Vaccine: 65+ (1 - PCV) [facility] Start: 1950 PNEUMOCOCCAL: 65+ (1 - PCV) PNEUMOCOCCAL: 65+ (1 - PCV) [facility] Start: 1949 COVID-19 VACCINE (#1) COVID-19 VACCINE (#1) [facility] Start: 1944 COVID-19 VACCINE (#1) COVID-19 VACCINE (#1) [facility] Bacteria identified in Urine by Culture URINE CULTURE Microbiology Routine Urinary frequency Ordered: 12/15/2022 [facility] Work Phone: Comment on above: Ordered: 12/15/2022 End: 08-12-2023 CBC W Auto Differential panel - Blood CBC + DIFF Lab STAT Hereditary hemochromatosis (HCC) 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 Every 3 months for 4 Occurrences starting 08/13/2022 until 08/12/2023, 1 completed [facility] Work Phone: Comment on above: Every 3 months for 4 Occurrences startin g 08/13/2022 until 08/12/2023, 1 completed [facility] COLOGUARD Lab Ro utine Screening for colon cancer Ordered: 01/14/2023 [facility] Work Phone: Comment on above: Ordered: 01/14/2023 End: 12-10-2024 DBT Breast - bilateral screening GOOD SCREENING W [facility] Radiology Routine Encounter for screening breast examination 1 Occurrences starting 11/11/2023 until 12/10/2024 [facility] Work Phone: Comment on above: 1 Occurrences starting 11/11/2023 until 12/10/2024 DBT Breast - bilater al screening GOOD SCREENING W [facility]OU Radiology Routine Encounter for screening breast examination 01/16/2024 8:26 AM EST [facility] Work Phone: ENTERIC BACTERIAL PA JUANITO BY PCR ENTERIC BACTERIAL PANEL BY PCR Lab Routine Rectal bleeding Ordered: 12/21/2022 [facility] Work Phone: Comment on above: Ordered: 12/21/2022 End: 08-12-2023 Ferritin [Mass/volume] in Serum or Plasma FERRITIN BLD Lab Routine Hereditary hemochromatosis (HCC) 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 Every 3 months for 4 Occurrences starting 08/13/2022 until 08/12/2023 [facility] Work Phone: Comment on above: Every 3 months for 4 Occurrences startin g 08/13/2022 until 08/12/2023 Ferritin [Mass/volum e] in Serum or Plasma FERRITIN BLD Lab Routine Hereditary hemochromatosis (HCC) 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 08/13/2022 7:58 AM EDT [facility] Work Phone: HEMOCUE B/O HEMOCUE B/O Lab Routine Rectal bleeding Ordered: 12/21/2022 [facility] Work Phone: Comment on above: Ordered: 12/21/2022 End: 08-12-2023 Iron and Iron binding capacity panel - Serum or Plasma IRON + TIBC Lab Routine Hereditary hemochromatosis (HCC) 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 Every 3 months for 4 Occurrences starting 08/13/2022 until 08/12/2023 [facility] Work Phone: Comment on above: Every 3 months for 4 Occurrences startin g 08/13/2022 until 08/12/2023 Iron and Iron bindin g capacity panel - Serum or Plasma IRON + TIBC Lab Routine Hereditary hemochromatosis (HCC) 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 08/13/2022 7:58 AM EDT [facility] Work Phone: End: 11-24-2023 GOOD SCREENING GOOD SCREENING Radiology Routine Screening breast examination 1 Occurrences starting 10/25/2022 until 11/24/2023 [facility] Work Phone: Comment on above: 1 Occurrences starting 10/25/2022 until 11/24/2023 End: 09-13-2024 MR Brain WO contrast MRI BRAIN WO IVCON Radiology Routine Impaired memory Forgetfulness 1 Occurrences starting 08/15/2023 until 09/13/2024 [facility] Comment on above: 1 Occurrences starting 08/15/2023 until 09/13/2024 End: 09-13-2024 MR Unspecified body region 3D post processing MRI 3D POST PROCESSING Radiology Routine Impaired memory Forgetfulness 1 Occurrences starting 08/15/2023 until 09/13/2024 [facility] Comment on above: 1 Occurrences starting 08/15/2023 until 09/13/2024 Ova and parasites identified in Unspecified specimen by Light microscopy OVA + PARA MICROSCOPIC Microbiology Routine Rectal bleeding Ordered: 12/21/2022 [facility] Work Phone: Comment on above: Ordered: 12/21/2022 Patient Education ED [facility] Work Phone: Patient referral [facility] Work Phone: Procedure [facility] Work Phone: End: 06-21-2023 Us abdominal real time w/image limited US ABD RT UPPER QUADRANT Radiology Routine Hereditary hemochromatosis (HCC) 1 Occurrences starting 05/22/2022 until 06/21/2023 [facility] Work Phone: Comment on above: 1 Occurrences starting 05/22/2022 until 06/21/2023 [facility] Immunizations Immunization Date Immunization Notes Care Provider Meghna chin 10-16-2018 tetanus toxoid, redu laverne diphtheria toxoid, and acellular pertussis vaccine, adsorbed Dr. Katarina Medina Work Phone: [facility] 01-30-2018 influenza virus vaccine, unspecified formulation Pauline Muse APRN.CNP Work Phone: [facility] Payers Date Payer Category Payer Self-pay [id number] 2024 Private Health Insurance [id number] 2023 Self-pay [id number] 2021 Medicare AETNA MEDICARE A ETNA MEDICARE PPO [id number] 2021-Present [phone] [address] [place] [address] PPO [id number] 2021 Medicare AET[employer] MEDICARE A ETNA MEDICARE PPO [id number] 2021-Present [phone] [address] [place] [address] PPO [id number] 2021 Medicare (Managed Care) [place] [id number] 2021 Private Health Insurance 101 [id number] 1944 Unknown [id number]. 627 Unknown [id number] 2.16.840.1.441821.3.579.2. 462 Unknown [id number] 2.16.840.1.619943.3.579.2. 462 Unknown [id number] 2.16.840.1.853478.3.579.2. 462 Unknown [id number] 2.16.840.1.050221.3.579.2. 462 Unknown [id number] 2.16.840.1.536071.3.579.2. 462 Unknown [id number] 2.16.840.1.029969.3.579.2. 462 Unknown [id number] 2.16.840.1.338485.3.579.2. 462 Unknown [id number] 2.16.840.1.587806.3.579.2. 462 Unknown [id number] 2.16.840.1.246309.3.579.2. 462 Unknown [id number] 2.16.840.1.009643.3.579.2. 462 Unknown [id number] 2.16.840.1.804064.3.579.2. 462 Unknown [id number] 2.16.840.1.988950.3.579.2. 462 Unknown [id number] 2.16.840.1.387212.3.579.2. 462 Unknown [id number] 2.16.840.1.218415.3.579.2. 462 Unknown [id number] [id number]. 462 Unknown [id number] [id number]. 462 Social History Date Type Detail Facility Start: 05-28-2021 End: 05-28-2023 Tobacco smoking status CAIS Unknown if ever smoked [facility] Start: 03-12-2016 None [facility] Start: 03-12-2016 Spouse/ Significant Other [facility] Start: 03-09-2018 Non-smoker [facility] Start: 1945 Sex Assigned At Female [facility] Start: 01-08-2022 End: 09-13-2024 Tobacco smoking status NHIS Never smoked tobacco [facility] Start: 05-16-2021 End: 10-12-2024 Alcohol intake Current non-drinker of alcohol (finding) [facility] Start: 07-05-2019 History SDOH Alcohol Frequency 1 [facility] Start: 07-05-2019 History SDOH Alcohol Std Drinks 98 [facility] Start: 07-05-2019 History SDOH Social Connections Living 3 [facility] Start: 07-05-2019 History SDOH Physical Activity MPS 4 [facility] Start: 07-05-2019 History SDOH Financial 5 [facility] Start: 07-05-2019 History SDOH Transport Med 2 [facility] Start: 07-04-2019 Education 18 [facility] Start: 1945 Sex Assigned At Not on file [facility] Start: 01-08-2022 Tobacco use and exposure Smokeless tobacco non-user [facility] Start: 12-29-2021 End: 01-08-2022 Exposure to SARS-CoV-2 (event) Not sure [facility] Start: 07-04-2019 End: 08-14-2022 History of Social function [facility] Start: 07-04-2019 End: 08-14-2022 Social connection and isolation panel [facility] In a typical week, h ow many times do you talk on the telephone with family, friends, or neighbors? Patient refused [facility] Do you belong to any clubs or organizations such as baptist groups, unions, fraSolvesting or athletic groups, or school groups? Yes [facility] Are you now , , , , never or living with a partner? [facility] How often to you hav e a drink containing alcohol? Never [facility] Do you feel stress - tense, restless, nervous, or anxious, or unable to sleep at night because your mind is troubled all the time - these days [OSQ] Not at all [facility] (I/We) worried wheth er (my/our) food would run out before (I/we) got money to buy more. Never true [facility] Tobacco smoking status [facility] Start: 03-26-2024 Sex Female (finding) [facility] Medical Equipment Procedure Code Equipment Code Equipment Origin al Text Equipment Identifier Dates SUTURE,LIGA CLIP MED [id number] FDA Start: 03-12-2018 SUTURE,LIGA CLIP MED [id number] FDA Start: 03-12-2018 SUTURE,LIGA CLIP SM LT-100 FDA Start: 03-12-2018 SUTURE,LIGA CLIP SM LT-100 FDA Start: 03-12-2018 SUTURE,LIGA CLIP MED [id number] FDA Start: 03-12-2018 SUTURE,LIGA CLIP MED [id number] FDA Start: 03-12-2018 SUTURE,LIGA CLIP SM LT-100 FDA Start: 03-12-2018 SUTURE,LIGA CLIP SM LT-100 FDA Start: 03-12-2018 SUTURE,LIGA CLIP MED [id number] FDA Start: 03-12-2018 SUTURE,LIGA CLIP MED LT200 FDA Start: 03-12-2018 SUTURE,LIGA CLIP SM LT-100 FDA Start: 03-12-2018 SUTURE,LIGA CLIP SM LT-100 FDA Start: 03-12-2018 SUTURE,LIGA CLIP MED LT200 FDA Start: 03-12-2018 SUTURE,LIGA CLIP MED LT200 FDA Start: 03-12-2018 SUTURE,LIGA CLIP SM LT-100 FDA Start: 03-12-2018 SUTURE,LIGA CLIP SM LT-100 FDA Start: 03-12-2018 SUTURE,LIGA CLIP MED LT200 FDA Start: 03-12-2018 SUTURE,LIGA CLIP MED LT200 FDA Start: 03-12-2018 SUTURE,LIGA CLIP SM LT-100 FDA Start: 03-12-2018 SUTURE,LIGA CLIP SM LT-100 FDA Start: 03-12-2018 SUTURE,LIGA CLIP MED LT200 FDA Start: 03-12-2018 SUTURE,LIGA CLIP MED LT200 FDA Start: 03-12-2018 SUTURE,LIGA CLIP SM LT-100 FDA Start: 03-12-2018 SUTURE,LIGA CLIP SM LT-100 FDA Start: 03-12-2018 SUTURE,LIGA CLIP MED LT200 FDA Start: 03-12-2018 SUTURE,LIGA CLIP MED LT200 FDA Start: 03-12-2018 SUTURE,LIGA CLIP SM LT-100 FDA Start: 03-12-2018 SUTURE,LIGA CLIP SM LT-100 FDA Start: 03-12-2018 SUTURE,LIGA CLIP MED LT200 FDA Start: 03-12-2018 SUTURE,LIGA CLIP MED LT200 FDA Start: 03-12-2018 SUTURE,LIGA CLIP SM LT-100 FDA Start: 03-12-2018 SUTURE,LIGA CLIP SM LT-100 FDA Start: 03-12-2018 SUTURE,LIGA CLIP MED LT200 FDA Start: 03-12-2018 SUTURE,LIGA CLIP MED LT200 FDA Start: 03-12-2018 SUTURE,LIGA CLIP SM LT-100 FDA Start: 03-12-2018 SUTURE,LIGA CLIP SM LT-100 FDA Start: 03-12-2018 SUTURE,LIGA CLIP MED LT200 FDA Start: 03-12-2018 SUTURE,LIGA CLIP MED LT200 FDA Start: 03-12-2018 SUTURE,LIGA CLIP SM LT-100 FDA Start: 03-12-2018 SUTURE,LIGA CLIP SM LT-100 FDA Start: 03-12-2018 SUTURE,LIGA CLIP MED LT200 FDA Start: 03-12-2018 SUTURE,LIGA CLIP MED LT200 FDA Start: 03-12-2018 SUTURE,LIGA CLIP SM LT-100 FDA Start: 03-12-2018 SUTURE,LIGA CLIP SM LT-100 FDA Start: 03-12-2018 SUTURE,LIGA CLIP MED LT200 FDA Start: 03-12-2018 SUTURE,LIGA CLIP MED LT200 FDA Start: 03-12-2018 SUTURE,LIGA CLIP SM LT-100 FDA Start: 03-12-2018 SUTURE,LIGA CLIP SM LT-100 FDA Start: 03-12-2018 SUTURE,LIGA CLIP MED LT200 FDA Start: 03-12-2018 SUTURE,LIGA CLIP MED LT200 FDA Start: 03-12-2018 SUTURE,LIGA CLIP SM LT-100 FDA Start: 03-12-2018 SUTURE,LIGA CLIP SM LT-100 FDA Start: 03-12-2018 SUTURE,LIGA CLIP MED LT200 FDA Start: 03-12-2018 SUTURE,LIGA CLIP MED LT200 FDA Start: 03-12-2018 SUTURE,LIGA CLIP SM LT-100 FDA Start: 03-12-2018 SUTURE,LIGA CLIP SM LT-100 FDA Start: 03-12-2018 SUTURE,LIGA CLIP MED LT200 FDA Start: 03-12-2018 SUTURE,LIGA CLIP MED LT200 FDA Start: 03-12-2018 SUTURE,LIGA CLIP SM LT-100 FDA Start: 03-12-2018 SUTURE,LIGA CLIP SM LT-100 FDA Start: 03-12-2018 Functional Status Date Assessment Result Facility 03-26-2024 Functional Status ID band on, Call device within reach, Bed in low position, Wheels locked, Upper/Half-Length side-rails up, Visitor at bedside, Safety level maintained [facility] 01-06-2017 Are you deaf, or do you have serious difficulty hearing No 01/06/2017 8:40 AM EDT Rosa Elena Orta, MARCIAL.STUDENT SERVICES VICE PRESIDENT No [facility] Work Phone: 01-06-2017 Are you blind, or do you have serious difficulty seeing, even when wearing glasses No 01/06/2017 8:40 AM EDT Rosa Elena Orta, CORROSION CONTROL TECHNICIAN.STUDENT SERVICES VICE PRESIDENT No [facility] 01-06-2017 Do you have serious difficulty walking or climbing stairs No 01/06/2017 8:40 AM EDT Rosa Elena Orta, CORROSION CONTROL TECHNICIAN.STUDENT SERVICES VICE PRESIDENT No [facility] 01-06-2017 Do you have difficul ty dressing or bathing No 01/06/2017 8:40 AM EDT Rosa Elena Orta, CORROSION CONTROL TECHNICIAN.STUDENT SERVICES VICE PRESIDENT [facility] 01-06-2017 Because of a physica l, mental, or emotional condition, do you have difficulty doing errands alone such as visiting a physician's office or shopping No 01/06/2017 8:40 AM EDT Rosa Elena Orta, MARCIAL.STUDENT SERVICES VICE PRESIDENT No [facility] Mental Status Date Assessment Result Facility 09-12-2024 Cognitive function Level Of Cons ciousness Awake;Alert;Appropriate;Fol lows Commands [facility] Work Phone: 03-26-2024 Mental Status Oriented x 4 [facility] 10-31-2021 Cognitive function Voice/Name [facility] Work Phone: 01-06-2017 Because of a physica l, mental, or emotional condition, do you have serious difficulty concentrating, remembering, or making decisions No 01/06/2017 8:40 AM EDT Rosa Elena Orta, MARCIAL.STUDENT SERVICES VICE PRESIDENT No [facility] Clinical Notes 08-03-2014 to 10-12-2024 Luis Ron, - 10/12/2024 8:30 AM EDTTelephone Encounter - Angie Seth LPN - 08/30/2024 9:27 AM EDTTelephone Encounter - Luis Ron DO - 08/27/2024 5:02 PM EDT Note Date & Type Note Facility 10-12-2024 History of Presen t illness Narrative DIAGNOSIS: 1) 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 2) DCIS. HPI: Mrs. Severino is a 79-year-old female diagnosed with hemochromatosis. She was diagnosed with temporal arteritis in 2016. She completed a 6 month course of tapering prednisone. She underwent EGD in the fall 2016 that demonstrated multiple duodenal ulcers. Had an abnormal screening mammogram 01/23/2018. There were indeterminate multiple calcifications in the left breast. Subsequent diagnostic left mammogram on 02/04/2018 revealed grouped fine pleomorphic calcifications in the left breast at the 12:00 middle depth. She underwent stereotactic core biopsy on 02/16/2018. Pathology: DCIS, grade 3. Estrogen receptors were positive (greater than 95%, strong) ND positive (greater than 95%, moderate and HER-2 3+. She underwent left breast lumpectomy on 03/12/2018. Final pathology demonstrated DCIS, grade 3 measuring 2 x 1 x 1 mm. Margin was negative. Closest margin was 5 mm from the anterior margin. Presents for ongoing hematologic management. Interim history: Continue the use of nattokinase. Has really helped maintain flow for phlebotomy. Subcutaneous mistletoe injections for history of DCIS. She continues to tolerate phlebotomy well. Appetite normal. No abdominal pain or specifically no right upper quadrant pain. Mild cognitive impairment. Working with PCP. Home SBPs-110s to 138 (that was after coffee). PMH, medications and allergies personally reviewed by me today. Any changes documented in appropriate section. ROS: The 10 system review is otherwise negative. PHYSICAL EXAM: Vitals: Blood pressure 176/76, pulse 73, temperature 36.7 C (98 F), temperature source Temporal, weight 70.3 kg (155 lb), SpO2 100%. Well-appearing and in no acute distress. EYES: Sclerae are anicteric bilaterally. LYMPHATIC: There is no palpable cervical, supraclavicular adenopathy. RESPIRATORY: Normal passive respirations. CARDIOVASCULAR: Rhythm is regular. ABDOMEN: The abdomen is nondistended. Extremities: No swelling or edema. SKIN: No jaundice. ASSESSMENT/PLAN: (E83.110) Hereditary hemochromatosis (HCC) (primary encounter diagnosis) Assessment: -Maintaining ferritin under 50 ng/mL with phlebotomy every 3 months. -Tolerating phlebotomy well. -Reviewed lab work with her. Mild increase in RBC number. Previous MPN panel negative. -White coat HTN. Home BPs consistently 120s/60s. -Discussed and answered questions she and her had. Discussed overall clinical course, rationale for phlebotomy, etc. Plan: -Phlebotomy q 3 months. Okay for today. -OV/CBC/iron studies/CMP/AFP in about a year. -She will continue following with her PCP for her other health care needs. 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 -At this time, she declines further mammogram. Plan: -Encouraged self breast exams and will plan annual breast exam. Portions of this documentation were copied and pasted from my previous office visit note dated 11/11/2023 in order to provide a cohesive continuity of the history. The note has been reviewed and edited and updated as necessary. I spent a total of 30 minutes on the date of the service which included preparing to see the patient, [id number] patient care, completing clinical documentation, obtaining and/or reviewing separately obtained history, performing a medically appropriate examination, counseling and educating the patient/family/caregiver, communicating with other HCPs (not separately reported), and communicating results to the patient/family/caregiver. Luis Ron DO documented in this encounter [facility] 10-12-2024 Note HNO ID: [id number] Author: LUIS RON DO Service: ? Author Type: Physician Type: Progress Notes Filed: 10/12/2024 08:55 Note Text: DIAGNOSIS: 1) 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 2) DCIS. HPI: Mrs. Severino is a 79-year-old female diagnosed with hemochromatosis. She was diagnosed with temporal arteritis in 2017. She completed a 6 month course of tapering prednisone. She underwent EGD in the fall 2016 that demonstrated multiple duodenal ulcers. Had an abnormal screening mammogram 01/23/2018. There were indeterminate multiple calcifications in the left breast. Subsequent diagnostic left mammogram on 02/04/2018 revealed grouped fine pleomorphic calcifications in the left breast at the 12:00 middle depth. She underwent stereotactic core biopsy on 02/16/2018. Pathology: DCIS, grade 3. Estrogen receptors were positive (greater than 95%, strong) ND positive (greater than 95%, moderate and HER-2 3+. She underwent left breast lumpectomy on 03/12/2018. Final pathology demonstrated DCIS, grade 3 measuring 2 x 1 x 1 mm. Margin was negative. Closest margin was 5 mm from the anterior margin. Presents for ongoing hematologic management. Interim history: Continue the use of nattokinase. Has really helped maintain flow for phlebotomy. Subcutaneous mistletoe injections for history of DCIS. She continues to tolerate phlebotomy well. Appetite normal. No abdominal pain or specifically no right upper quadrant pain. Mild cognitive impairment. Working with PCP. Home SBPs-110s to 138 (that was after coffee). PMH, medications and allergies personally reviewed by me today. Any changes documented in appropriate section. ROS: The 10 system review is otherwise negative. PHYSICAL EXAM: Vitals: Blood pressure 176/76, pulse 73, temperature 36.7 ?C (98 ?F), temperature source Temporal, weight 70.3 kg (155 lb), SpO2 100%. Well-appearing and in no acute distress. EYES: Sclerae are anicteric bilaterally. LYMPHATIC: There is no palpable cervical, supraclavicular adenopathy. RESPIRATORY: Normal passive respirations. CARDIOVASCULAR: Rhythm is regular. ABDOMEN: The abdomen is nondistended. Extremities: No swelling or edema. SKIN: No jaundice. ASSESSMENT/PLAN: (E83.110) Hereditary hemochromatosis (HCC) (primary encounter diagnosis) Assessment: -Maintaining ferritin under 50 ng/mL with phlebotomy every 3 months. -Tolerating phlebotomy well. -Reviewed lab work with her. Mild increase in RBC number. Previous MPN panel negative. -White coat HTN. Home BPs consistently 120s/60s. -Discussed and answered questions she and her had. Discussed overall clinical course, rationale for phlebotomy, etc. Plan: -Phlebotomy q 3 months. Okay for today. -OV/CBC/iron studies/CMP/AFP in about a year. -She will continue following with her PCP for her other health care needs. 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 -At this time, she declines further mammogram. Plan: -Encouraged self breast exams and will plan annual breast exam. Portions of this documentation were copied and pasted from my previous office visit note dated 11/11/2023 in order to provide a cohesive continuity of the history. The note has been reviewed and edited and updated as necessary. I spent a total of 30 minutes on the date of the service which included preparing to see the patient, [id number] patient care, completing clinical documentation, obtaining and/or reviewing separately obtained history, performing a medically appropriate examination, counseling and educating the patient/family/caregiver, communicating with other HCPs (not separately reported), and communicating results to the patient/family/caregiver. Luis Ron DO [facility] 09-12-2024 Radiology Diagnostic study note [facility] Imaging Services [address] [place] [address] Chest PA and Lateral MR#: [id number] Acct: [id number] Name: EDER SEVERINO Rep #: [id number] : 1945 F 79 From: [place] MD PCP: Dr. Katarina Medina MD Status: REG ER Study:Chest PA and Lateral Date of Exam: 09/12/24 Exam# [id number] Ordering Dr: Nathanael Taylor DO PROCEDURE: CHEST PA AND LATERAL 09/12/2024 REASON FOR EXAM: COUGH AND CONGESTION TECHNIQUE: CHEST PA AND LATERAL COMPARISON: Two-view chest, 05/29/2018. FINDINGS: The lungs are clear. The heart borders mediastinum and pulmonary vascular pattern are normal. The visualized upper abdominal bowel gas pattern is normal. There are no acute bony abnormalities. RAD/Chest PA and Lateral IMPRESSION: No evidence of acute cardiopulmonary pathology. Reading Location: [id number] CC: Dr. Nathanael Bowers DO; Dr. Katarina Medina MD ~ Pick Up Man: Signed [facility] Work Phone: 08-30-2024 Miscellaneous Notes Pt notified and voices understanding. Ferritin trend reviewed with pt. Angie Seth LPN I don't think hemochromatosis is causing brain fog. Her ferritin is at goal (< 50 ng/mL). if she had polycythemia vera (she doesn't) then more frequent phlebotomy would make sense. Luis Ron DO Pt walks in to office currently schedules phlebo every 3 months. She is experiencing an increase in her brain fog. She states she recently saw Dr Chance who thought she should speak to you regarding increasing her phlebo's. She has noted brain fog for a couple years that she feels has increased. PCP is Dr Medina who she saw about a month ago. He is aware of the brain fog. There is a brain MRI on file here 09/02/23 ordered by neurology. Please advise on possibly increasing phlebotomies. Her next OV and phlebo here in 10/12/24. She is going to see nutrition on 09/07/[address] Fletcher. Angie Seth LPN documented in this encounter [facility] 08-30-2024 Telephone encounter Note Pt notified and voices understanding. Ferritin trend reviewed with pt. Angie Seth LPN [facility] 08-27-2024 Telephone encounter Note I don't think hemochromatosis is causing brain fog. Her ferritin is at goal (< 50 ng/mL). if she had polycythemia vera (she doesn't) then more frequent phlebotomy would make sense. Luis Ron DO [facility] 08-27-2024 Telephone encounter Note Pt walks in to office currently schedules phlebo every 3 months. She is experiencing an increase in her brain fog. She states she recently saw Dr Chance who thought she should speak to you regarding increasing her phlebo's. She has noted brain fog for a couple years that she feels has increased. PCP is Dr Medina who she saw about a month ago. He is aware of the brain fog. There is a brain MRI on file here 09/02/23 ordered by neurology. Please advise on possibly increasing phlebotomies. Her next OV and phlebo here in 10/12/24. She is going to see nutrition on 09/07/[address] Fletcher. Angie Seth LPN [facility] 06-30-2024 Evaluation note Diagnosis Onset Date Resolution Anxiety acute June 30 2:22pm Brain fog acute June 30 2:22pm Vitamin D deficiency acute Apri l 2024 2:22pm Asthma chronic June 30 2:22pm Hemochromatosis chronic June 2:22pm Hemochromatosis chronic July 16, 2024 8:04am [facility] Work Phone: 1(317) 742-410004-23-2025 Evaluation note* Diagnosis Onset Date Resolution Status Admit Date Anxiety acute June 30 2:22pm Brain fog acute June 30 2:22pm Vitamin D deficiency acute Apri l 2024 2:22pm Asthma chronic June 30 2:22pm Hemochromatosis chronic June 2:22pm Hemochromatosis chronic July 16, 2024 8:04am Hemochromatosis chronic July 30, 2024 8:26am [facility] Work Phone: 1(118) 807-884204-23-2025 Evaluation note* Diagnosis Onset Date Resolution Status Admit Date Anxiety acute June 30 2:22pm Brain fog acute June 30 2:22pm Vitamin D deficiency acute Apri l 2024 2:22pm Asthma chronic June 30 2:22pm Hemochromatosis chronic June 2:22pm Hemochromatosis chronic July 16, 2024 8:04am Hemochromatosis chronic July 30, 2024 8:26am Left knee pain acute September 15, 2024 9:31am Congested nose inactive September 15, 2024 9:31am [facility] Work Phone: 1(599) 707-100004-09-2025 NoteDate of Procedure 06/16/2024. Fruit Tester Information Tool Grinder Set Up Operator Gear: JONATHAN. Start time: 8:50 AM. Stop time: 8:53 AM. Quality Right Eye Good. Left Eye Good. Notes OD mod diffuse thinning, sup > inf OS approaching floor GCC OD artifact OD severe [id number] NoteHNO ID: [id number] Author: JACQUELINE GRIFFITHS MD Service: ? Author Type: Physician Type: Progress Notes Filed: 06/02/2024 15:10 Note Text: OUTSIDE RECORDS REVIEW: Tmax: , 25; Pachy: 555, 555 Lasers and Surgeries: OD: SLT x5 OS: SLT x5 Ocular Medication Intol and Non-efficacy: 20 allergies TILA Cosopt PF, Zioptan Referred by Aditya Wilson Now on No drops POAG mild OD, severe OS -HVF 30-2 09/2023 (Dr. 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 Author Type: Physician Type: Progress Notes Filed: 06/16/2024 09:53 Note Text: Tmax: 26, 26; Pachy: 555, 555 Lasers and Surgeries: OD: SLT x5 OS: SLT x5 Ocular Medication Intol and Non-efficacy: 20 allergies TILA Cosopt PF, Zioptan: pt tells me she never tried these Referred by Aditya Chan Now on No drops POAG mild OD, severe OS -HVF 30-2 09/2023 (Dr. 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 This means that she will suffer meaningful vision loss without eyedrops. -she told me that she never actually tried tafluprost -she is willing to try tafluprost and she would like IOP check with Mied[facility]. -I am happy to see her back as needed. -Consider allergy testing for glaucoma drops Exudative AMD OD - getting Avastin (Dr. 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 Electronically Signed: mirta Uriarte, June 16, 2024 5:40 AM I personally performed the services described in this documentation. All medical record entries made by the mirta were at my direction and in my presence. I have reviewed the chart and discharge instructions (if applicable) and agree that the record reflects my personal performance and is accurate and complete. I have confirmed and edited as necessary the relevant HPI, ophthalmic history, ROS, and neuro exam findings as obtained by others. I have seen and examined Eder Severino. I have discussed the case and the management of this patient's care with the Resident/Fellow, if applicable. I also have reviewed, edited as necessary, and agree with the assessment and plan as stated above and agree with all of its relevant components.[facility]03-26-2025 History of Present illness Narrative* Jacqueline Griffiths MD - 06/02/2024 3:04 PM EDT Tmax: 26, 26; Pachy: 555, 555 Lasers and Surgeries: OD: SLT x5 OS: SLT x5 Ocular Medication Intol and Non-efficacy: 20 allergies TILA Cosopt PF, Zioptan: pt tells me she never tried these Referred by Aditya Chan Now on No drops POAG mild OD, severe OS -HVF 30-2 09/2023 (Dr. 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 This means that she will suffer meaningful vision loss without eyedrops. -she told me that she never actually tried tafluprost -she is willing to try tafluprost and she would like IOP check with Miedel. -I am happy to see her back as needed. -Consider allergy testing for glaucoma drops Exudative AMD OD - getting Avastin (Dr. 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 Electronically Signed: mirta Uriarte, June 16, 2024 5:40 AM I personally performed the services described in this documentation. All medical record entries made by the scribe were at my direction and in my presence. I have reviewed the chart and discharge instructions (if applicable) and agree that the record reflects my personal performance and is accurateand complete. I have confirmed and edited as necessary the relevant HPI, ophthalmic history, ROS, and neuro exam findings as obtained by others. I have seen and examined Eder Severino. I have discussed the caseand the management of this patient's care with the Resident/Fellow, if applicable. I also have reviewed, edited as necessary, and agree with the assessment and plan as stated above and agree with allof its relevant components. [facility] Instructions* Patient Instructions* Airam Alvarado APRN.EQUESTRIAN TRAINER - 05/27/2024 3:14 PM EDT Images from the original note were not included. Plan and Lifestyle Prescription PLAN with Patient Instructions: Based on your evaluation today, these are my recommendations: Modified Cardiometabolic Diet: avoid foods that are known to cause a serious allergy. Expand vegetable diversity for microbiome support slowly and gently. Follow up with the registered clinical dietitian (RD)for a customized food plan. Consider a 3-day food log/dietary recall assessment with your RD. Goals: Increase plant fiber intake with color variety (eat the rainbow) for gut health as tolerated. CF labs ordered Water intake: Aim for 8 glasses of filtered water a day. Avoid drinking from plastic water bottles when possible. Try 1-2 cups before breakfast/morning coffee. Use a non-plastic, reusable water container for daily hydration. Carry it with you during your day-to-day. To gauge hydration: Urine shouldnever be colorless clear. Aim for a pale straw yellow color. Stress regulation: Try the 4-7-8 breath twice a day or at bedtime (Youtluiza Santos 8). Take 1-2 deep breaths before eating meals Optionally, follow up with the CF therapist to help process the stress you are experiencing Weekly movement routine: consider light exercise 3x a week for 30 min (as tolerated) Restorative sleep: Pre-bedtime routine. No blue screens 1-2 hours before bed. Do something relaxingevery night: read a book, meditate, try a deep breathing exercise, etc. Sleep goal 7-9 hours nightly Consistency: We have to build new neuro pathways for a sustainable health routine, including diet. Follow up with the health assistant track and field coach every 2 weeks to keep things in check Minimize supplements: recommend a well-sourced Vitamin D and quality probiotic. I like these brands: Blue vitamin D 5000 international unit(s) or plant-based: Truvani brand vitamin D or MindBodyGreen D3 Seed probiotic (MTEM Limited) or Garden of Life 30 billion CFUs Notes: Consider buying organic when available and within budget: check [employer] for the Dirty Dozen/Clean 15 shopping guide. Well-sourced protein includes labels like: organic, grassfed, pasture-raised, & wild caught Whole Food Recipe Blogs Fabby Ambriz: https://nareshAddonTV.Actus Interactive Software/ Plant Based RD (Vegan and plant diverse): https://plantbasedrAutogrid.Actus Interactive Software/recipes/ Microinoxls Good Eats: https://G2One Network.Actus Interactive Software/ Cookie and Sheila: https://cookieEnphase Energye.Actus Interactive Software/ Love and Celsa: https://www.loveandleThe Influences.com/recipes/ 101 Cookbooks: https://www.101cookbooks.com/ Naturally Joanna:https://naturallyella.com/ The Real Food Dietitians: https://therealfooddietitians.Actus Interactive Software/ Follow up: Please schedule a follow up visit with the following Caregivers: Provider: 12weeks, Sports Doctor: 4 weeks, and Health Pattern Drum Maker: 2 weeks Stack Matcher (RD): During the next 4-8 weeks you'll be working on your diet plan with our RD, allowing for gentle detoxification and decreasing inflammation - while we are gathering your lab results and combining thosewith your complete history to formulate a very personalized treatment plan. [phone]. Health Coaching: Recommend follow up every 2 weeks to develop a consistent routine. Please consider scheduling with our [facility] health coaches for a phone or virtual visit for accountability, goal setting and help with behavior changer fixer the next 6-8 weeks to be successful with your goals. [phone]. CFM Therapist: This is optional. Weekly or bi-monthly appointments can be helpful. [phone]. Due to the complexity of the testing performed, we are not able to review labs via [email or web address] or over the phone, but please know, if any of your labs are critical we will contact you. Otherwise, we willreview all your labs at your next visit. documented in this encounterK[facility]03-20-[facility]25 NoteHNO ID: [id number] Author: AIRAM ALVARADO APRN.JONATHAN Service: ? Author Type: Nurse Practitioner Type: Progress Notes Filed: 05/27/2024 15:14 Note Text: FUNCTIONAL MEDICINE INITIAL ASSESSMENT Patient: Eder Severino ALLERGIES Allergen Reactions Sulfa (Sulfonamide * Anaphylaxis [place] Seed Rash Advil [Ibuprofen] Intolerance along with any non-steroidal anti- inflammatory Amoxicillin Intolerance Aspirin skin reaction- redness and burning Barium Iodide Rash Barium Sulfate Rash Darvon [Propoxyphen* Mental Status Change blacked out with postural changes Indocin [Indomethac* Intolerance Macrodantin [Nitrof* neuropathy Monistat 1 [Tiocona* headache and vaginal burning Monistat 3 [Miconaz* Intolerance vaginal burning, headache,nausea, relieved with benedryl Prednisolone Swelling swelling side of face, facial itching, reddened eye Prednisone dose related Progesterone migraine Psoriosis Lotion [O* Rash Tree And Shrub Poll* Other: See Comments Tums [Calcium Carbo* Itchy eyes Uristat [Phenazopyr* Intolerance Vagifem [Estradiol] neuropathy Xalatan [Latanopros* Shortness of Breath chest pain Zantac [Ranitidine * Burning in Legs, headache , facial Twitching, jittery Current Outpatient Medications Medication Sig Dispense Refill quercetin 500 mg cap Take 500-750 mg by mouth two times a day. 1-2 or twice daily LUTEIN-ZEAXANTHIN ORAL Take 10 mg by mouth once daily. Bacillus coagulans/inulin (PROBIOTIC WITH PREBIOTIC ORAL) Take 1 capsule by mouth once daily. OTC PRODUCT [place]- r/t [facility] MAGNESIUM ORAL Take 300 mg by mouth once daily. 1-2 once daily Biotin 2,500 mcg cap Take 2,500 mg by mouth once daily. OTC PRODUCT Take 100 mg by mouth twice daily. Nattokinase 100mg: Take one(1) tablet daily. 0 No current facility-administered medications for this visit. ACTIVE PROBLEM LIST Allergic Rhinitis, Cause Unspecified Esophageal Reflux Anxiety State Postmenopausal Atrophic Vaginitis Disorders of Iron Metabolism Blood in Stool Other Psoriasis OSTEOPENIA Urticaria, Unspecified Asthma Allergy Disorder of Iron Metabolism Vitamin D Deficiency Nocturia Hereditary Hemochromatosis (Hcc) Globus Sensation H/O Polymyalgia Rheumatica PAST MEDICAL HISTORY Diagnosis Date Allergic rhinitis due to other allergen Anxiety state, unspecified Blood dyscrasia Cholelithiasis Disorder of bone and cartilage, unspecified arthritis Disorders of iron metabolism hemochromatosis Ductal carcinoma (HCC) Esophageal reflux Gastroesophageal reflux Gallbladder disease 2016 H/O polymyalgia rheumatica 02/12/2018 Mental disorder Migraine, unspecified, with intractable migraine, so stated, without mention of status migrainosus Osteoarthrosis, unspecified whether generalized or localized, other specified sites Other diseases of trachea and bronchus, not elsewhere classified Other psoriasis PMH - PAST MEDICAL HISTORY OF infection in finger PAST SURGICAL HISTORY Procedure Laterality Date BREAST LUMPECTOMY HX Left 03/2018 CATARACT EXTRACTION HX 01/2014, 04/2014 bilateral COLONOSCOPY 07/18/2014 Stella - diverticulosis, otherwise normal COLONOSCOPY FLX DX W/COLLJ SPEC WHEN PFRMD 2006 Colonoscopy DILATION AND CURETTAGE DXAND/THER NONOBSTETRIC Dilation AND curettage with misc ESOPHAGOGASTRODUODENOSCOPY TRANSORAL DIAGNOSTIC 11/12/2016 EGD LAPS ABD PRTMANDOMENTUM DX W/WO SPEC BR/WA SPX 1974 Laparoscopy NOSE SURGERY HX 2011 trauma - PAST SURGICAL HISTORY OF fall 2005 endoscopy PAST SURGICAL HISTORY OF , , 09/20/96 EMB PAST SURGICAL HISTORY OF lanced finger and drained PAST SURGICAL HISTORY OF 02/11/2017 gallbladder removal - single site surgery performed at [facility] by Dr. Castro - under thoracic epidural and sedation. STRTCTC LOCLZJ GID BREAST BX/NEEDLE PLACEMENT Right 02/16/2018 Rt stereotactic vaccuum assisted core biopsy Family History Problem Relation Age of Onset Hypertension Mother Diabetes Mother Heart Mother Hypertension Father Heart Father Heart disease Brother Breast Cancer Sister develpoed at 74 Diabetes Sister Heart disease Sister other (lung cancer) Brother Social History Tobacco Use Smoking status: Never Smokeless tobacco: Never Vaping Use Vaping status: Never Used Substance Use Topics Alcohol use: No Drug use: No Patient Goals: New to provider visit today. Accompanied by . Lives in [place], [place] HPI: This is an 79yo female presenting for a functional medicine consult with complaints of: Brain fog x 1 year Sometimes good days, other days really struggling with communicating, processing, and remembering words Followed by [facility] neurology: treated for mild cognitive impairment 2023 - 03/2024: 6 months of: treadmill 4x a week, therapist x 5 months, lorazepam for sleep Also mentions that she w (more content not included)...[facility]03-20-2025 History of Present illness Narrative* Airam Alvarado APRN.EQUESTRIAN TRAINER - 05/27/2024 2:13 PM EDT Images from the original note were not included. FUNCTIONAL MEDICINE INITIAL ASSESSMENT Patient: Eder Severino ALLERGIES Allergen Reactions Sulfa (Sulfonamide * Anaphylaxis [place] Seed Rash Advil [Ibuprofen] Intolerance along with any non-steroidal anti- inflammatory Amoxicillin Intolerance Aspirin skin reaction- redness and burning Barium Iodide Rash Barium Sulfate Rash Darvon [Propoxyphen* Mental Status Change blacked out with postural changes Indocin [Indomethac* Intolerance Macrodantin [Nitrof* neuropathy Monistat 1 [Tiocona* headache and vaginal burning Monistat 3 [Miconaz* Intolerance vaginal burning, headache,nausea, relieved with benedryl Prednisolone Swelling swelling side of face, facial itching, reddened eye Prednisone dose related Progesterone migraine Psoriosis Lotion [O* Rash Tree And Shrub Poll* Other: See Comments Tums [Calcium Carbo* Itchy eyes Uristat [Phenazopyr* Intolerance Vagifem [Estradiol] neuropathy Xalatan [Latanopros* Shortness of Breath chest pain Zantac [Ranitidine * Burning in Legs, headache , facial Twitching, jittery Current Outpatient Medications Medication Sig Dispense Refill quercetin 500 mg cap Take 500-750 mg by mouth two times a day. 1-2 or twice daily LUTEIN-ZEAXANTHIN ORAL Take 10 mg by mouth once daily. Bacillus coagulans/inulin (PROBIOTIC WITH PREBIOTIC ORAL) Take 1 capsule by mouth once daily. OTC PRODUCT [place]- r/t [facility] MAGNESIUM ORAL Take 300 mg by mouth once daily. 1-2 once daily Biotin 2,500 mcg cap Take 2,500 mg by mouth once daily. OTC PRODUCT Take 100 mg by mouth twice daily. Nattokinase 100mg: Take one(1) tablet daily. 0 No current facility-administered medications for this visit. ACTIVE PROBLEM LIST Allergic Rhinitis, Cause Unspecified Esophageal Reflux Anxiety State Postmenopausal Atrophic Vaginitis Disorders of Iron Metabolism Blood in Stool Other Psoriasis OSTEOPENIA Urticaria, Unspecified Asthma Allergy Disorder of Iron Metabolism Vitamin D Deficiency Nocturia Hereditary Hemochromatosis (Hcc) Globus Sensation H/O Polymyalgia Rheumatica PAST MEDICAL HISTORY Diagnosis Date Allergic rhinitis due to other allergen Anxiety state, unspecified Blood dyscrasia Cholelithiasis Disorder of bone and cartilage, unspecified arthritis Disorders of iron metabolism hemochromatosis Ductal carcinoma (HCC) Esophageal reflux Gastroesophageal reflux Gallbladder disease 2016 H/O polymyalgia rheumatica 02/12/2018 Mental disorder Migraine, unspecified, with intractable migraine, so stated, without mention of status migrainosus Osteoarthrosis, unspecified whether generalized or localized, other specified sites Other diseases of trachea and bronchus, not elsewhere classified Other psoriasis PMH - PAST MEDICAL HISTORY OF infection in finger PAST SURGICAL HISTORY Procedure Laterality Date BREAST LUMPECTOMY HX Left 03/2018 CATARACT EXTRACTION HX 01/2014, 04/2014 bilateral COLONOSCOPY 07/18/2014 Stella - diverticulosis, otherwise normal COLONOSCOPY FLX DX W/COLLJ SPEC WHEN PFRMD 2005 Colonoscopy DILATION & CURETTAGE DX&/THER NONOBSTETRIC Dilation & curettage with misc ESOPHAGOGASTRODUODENOSCOPY TRANSORAL DIAGNOSTIC 11/12/2016 EGD LAPS ABD PRTM&OMENTUM DX W/WO SPEC BR/WA SPX 1974 Laparoscopy NOSE SURGERY HX 2011 trauma - PAST SURGICAL HISTORY OF fall 2006 endoscopy PAST SURGICAL HISTORY OF , , 09/20/96 EMB PAST SURGICAL HISTORY OF lanced finger and drained PAST SURGICAL HISTORY OF 02/11/2017 gallbladder removal - single site surgery performed at [facility] by Dr. Castro - under thoracic epidural and sedation. STRTCTC LOCLZJ GID BREAST BX/NEEDLE PLACEMENT Right 02/16/2018 Rt stereotactic vaccuum assisted core biopsy Family History Problem Relation Age of Onset Hypertension Mother Diabetes Mother Heart Mother Hypertension Father Heart Father Heart disease Brother Breast Cancer Sister develpoed at 74 Diabetes Sister Heart disease Sister other (lung cancer) Brother Social History Tobacco Use Smoking status: Never Smokeless tobacco: Never Vaping Use Vaping status: Never Used Substance Use Topics Alcohol use: No Drug use: No Patient Goals: New to provider visit today. Accompanied by . Lives in [place], [place] HPI: This is an 79yo female presenting for a functional medicine consult with complaints of: Brain fog x 1 year Sometimes good days, other days really struggling with communicating, processing, and rememberingwords Followed by [facility] neurology: treated for mild cognitive impairment 2023 - 03/2024: 6 months of: treadmill 4x a week, therapist x 5 months, lorazepam for sleep Also mentions that she was seen by a different neurologist in the past 08/2023 s/p MRI of the brain IMPRESSION: No apparent acute intracranial process or intracranial mass. * No significant generalized volume loss for patient age by qualitative assessment. * Hippocampal volumes at the 70th percentile when compared to age matched normal controls by quantitative analysis. * Mild white matter disease which is nonspecific but likely reflective of chronic microvascular ischemia. 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 * No evidence of parenchymal microhemorrhages by MRI. Mentions she had covid twice in 03/2023 Developed oral allergy syndrome Mainly issues with nuts Has concerns about proteins in fruit and vegetables Can't tolerate raw fruit and vegetables Bananas and avocados cause sneezing and runny nose Sometimes experiences hard time breathing/chest discomfort Carries epipen and inhaler Had f/u with upper extremity surgeon,mentions she's getting injections to build tolerance Has concerns about histamine intolerance has concerns that pollen from trees in general are a trigger mentions personal concerns for mold exposure States he saw previous CFM provider in the past No active concerns for mold in the home, house remediated Pt does not mention concern for this Hx of hemochromatosis Phlebotomy every 3 months Hx of macular degeneration Hx of psoriasis since 5th grade Onset after older brother did things he shouldn't have done Mentions traumatic experience S/s briefly resolved after acupuncture tx Uses triamcinolone topical 02/2020 Early stage breast cancer s/p lumpectomy Also saw DO and tx'd with mistletoe therapy 03/2024 vit D elevated 125 Stopped taking vit D briefly, taking 5000IUs here and there Last PCP visit: within the past year Diet: pretty much vegan B: oatmeal, blueberries, goat milk/soy milk L: fried salmon, sweet potatoes, corn, broccoli, canned fruit D: quinoa Fluids/caffeine intake: water a day: 1 gallon or less x1 coffee per day with milk BM: comes and goes mostly once a day, formed stool Sleep: 8-10 hours a night. Feeling refreshed in the am Stress: medium, doesn't feel like she needs a therapist Prays daily, quiet time Exercise: weekly treadmill Relationships: Good support Tobacco/ETOH/Substance Use: No tobacco or substances. ETOH: none Supplements: list reviewed Multiple Meds/Labs: in EMR Recent labs Review of Systems: See HPI Objective: BP 166/53 (BP Site: Left Arm, BP Position: Sitting, BP Cuff Size: Large Adult) Pulse 68 Ht 165.1 cm (5' 5) Wt 68.8 kg (151 lb 10.8 oz) BMI 25.24 kg/m Pt asymptomatic of BP Physical Exam: General appearance: Well-appearing, NAD. Pleasant and conversational HEENT: NC/AT, PERRL, sclera white, nose patent bilaterally, no oral swelling/mucus membranes pink & moist, tongue without fissures or white coating Neck: Non-tender. No obvious swelling or adenopathy Lungs: CTAB, no use of accessory muscles Heart: RRR, no obvious murmur Abdomen: Soft, non-tender. +BS Extremities: Non-tender and warm. No joint swelling, redness, or pitting edema Neuro: No obvious motor, sensory, or focal deficits. Pt is ambulatory Psych: Slightly anxious at times. Behavior and judgement normal. Skin: Warm. No acute rash Initial Functional Medicine Assessment Nutritional Assessment Nutritional evaluation was performed. See above. Underlying Causes: Unmet nutritional needs from diet, concern for impaired gut barrier/dysbiosis, inadequate sleep, life stressors Today's Focus: Gut health Stress regulation Improve sleep quality Digestive Function Daily formed Bms DIAGNOSIS/ASSESSMENT: R63.8 Alteration in metabolic function (primary encounter diagnosis) R41.89 Brain fog T78.40XA Allergy, initial encounter E67.3 High vitamin D level Plan and Lifestyle Prescription PLAN with Patient Instructions: Based on your evaluation today, these are my recommendations: Modified Cardiometabolic Diet: avoid foods that are known to cause a serious allergy. Expand vegetable diversity for microbiome support slowly and gently. Follow up with the registered clinical dietitian (RD)for a customized food plan. Consider a 3-day food log/dietary recall assessment with your RD. Goals: Increase plant fiber intake with color variety (eat the rainbow) for gut health as tolerated. [facility] labs ordered Water intake: Aim for 8 glasses of filtered water a day. Avoid drinking from plastic water bottles when possible. Try 1-2 cups before breakfast/morning coffee. Use a non-plastic, reusable water container for daily hydration. Carry it with you during your day-to-day. To gauge hydration: Urine shouldnever be colorless clear. Aim for a pale straw yellow color. Stress regulation: Try the 4-7-8 breath twice a day or at bedtime (Youtube Dr. Santos 4-7-8). Take 1-2 deep breaths before eating meals Optionally, follow up with the [facility] therapist to help process the stress you are experiencing Weekly movement routine: consider light exercise 3x a week for 30 min (as tolerated) Restorative sleep: Pre-bedtime routine. No blue screens 1-2 hours before bed. Do something relaxingevery night: read a book, meditate, try a deep breathing exercise, etc. Sleep goal 7-9 hours nightly Consistency: We have to build new neuro pathways for a sustainable health routine, including diet. Follow up with the health assistant track and field coach every 2 weeks to keep things in check Minimize supplements: recommend a well-sourced Vitamin D and quality probiotic. I like these brands: Blue vitamin D 5000 international unit(s) or plant-based: Truvani brand vitamin D or MindBodyGreen D3 Seed probiotic (MTEM Limited) or Garden of Life 30 billion CFUs Notes: Consider buying organic when available and within budget: check AppHarbor.FamilyID for the Dirty Dozen/Clean 15 shopping guide. Well-sourced protein includes labels like: organic, grassfed, pasture-raised, & wild caught Whole Food Recipe Blogs Fabby Ambriz: https://nareshAddonTV.Actus Interactive Software/ Plant Based RD (Vegan and plant diverse): https://plantbasedrAble Imaginglog.Actus Interactive Software/recipes/ [place] Good Eats: https://G2One Network.Actus Interactive Software/ Cookie and Sheila: https://Intapp.Actus Interactive Software/ Love and Celsa: https://www.Temptster.Actus Interactive Software/recipes/ 101 Cookbooks: https://www.101cookbookYouFastUnlock.Actus Interactive Software/ Naturally Joanna:https://naturallyella.Actus Interactive Software/ The Real Food Dietitians: https://SETVI.Actus Interactive Software/ Follow up: Please schedule a follow up visit with the following Caregivers: Provider: 12weeks, Sports Doctor: 4 weeks, and Health Pattern Drum Maker: 2 weeks Stack Matcher (RD): During the next 4-8 weeks you'll be working on your diet plan with our RD, allowing for gentle detoxification and decreasing inflammation - while we are gathering your lab results and combining thosewith your complete history to formulate a very personalized treatment plan. [phone]. Health Coaching: Recommend follow up every 2 weeks to develop a consistent routine. Please consider scheduling with our [facility] health coaches for a phone or virtual visit for accountability, goal setting and help with behavior changer fixer the next 6-8 weeks to be successful with your goals. [phone]. CFM Therapist: This is optional. Weekly or bi-monthly appointments can be helpful. [phone]. Due to the complexity of the testing performed, we are not able to review labs via [email or web address] or over the phone, but please know, if any of your labs are critical we will contact you. Otherwise, we willreview all your labs at your next visit. Time spent with patient: I spent a total of 60 minutes on the date of the service which included preparing to see the patient, [id number] patient care, completing clinical documentation, obtaining and/or reviewing separately obtained history, performing a medically appropriate examination, counseling and educating the pat ient/family/caregiver, and ordering medications, tests, or procedures. Airam Alvarado APRN.CNP 05/27/2024 3:06 PM documented in this encounterK[facility]02-10-2025 History of Present illness Narrative* Oli Avery MD - 04/19/2024 4:30 PM EST [facility] Established Visit Consultation is requested by: No referring provider defined for this encounter. PCP: Katarina Medina [facility] [address] [facility] History of Event: I am seeing Mrs. Severino as follow-up. She is a 78 year-old woman, with no known vascular risk factors, who presented to my clinic in September 2023 for evaluation of incidental remote infarcts found rupa brain MRI obtained for assessment of progressively worsening word-finding difficulty. Her reports some degree of memory changes as well. Recently, she's been very anxious about multiple health concerns, including macular degeneration and allergies. History goes back to when she had COVID-19 infection twice, and after each time had brain fog. After her second COVID-19 infection, this kept on getting worse. She denies memory loss, but rather moredifficulty finding specific words. MRI brain without bharat showed no acute process, mild WM disease reflective of chronic microvascular ischemic, small remote L occipital cortical infarct and small remote cerebellar infarct. My impression at the time: Mrs. Severino is a 78 year-old woman, with no known vascular risk factors, who presents to my clinic today for evaluation of incidental remote infarcts found on a brain MRI obtained for assessment of word-finding difficulty. 1. Mild cognitive impairment (you scored 23/30 on MoCA testing) Your thyroid and vitamin B12 levels were normal Your anxiety is probably contributing to your symptoms Your MRI does not show significant white matter disease or atrophy (shrinking of the brain) I would recommend: Aerobic exercise (anything that makes you sweat or lifts your heart rate) 30 minutes 5 times a week Referral to behavioral therapy for management of anxiety 2. Coincidental tiny old strokes on your MRI Blood tests for lipid panel and hemoglobin A1c We will be getting your records from [facility] and we will let you know if there is any more workup we recommend I do not recommend starting aspirin since you're already on a blood thinner Follow-up with us in 6 months (virtually) Interval events: - LDL-C 97, hba1c 5.1% - Has been exercising on the treadmill for 30 minutes 4 times a week - Has been receiving cognitive behavioral therapy for anxiety which has made her feel great - Has been sleeping up to 7-8 hours every night Antiplatelets/Anticoagulants: - Nattokinase Residual Deficits: Cognitive impairments Current PT/OT/ST: None Current Living Situation: Home with spouse Current use of a mobility aid for walking/getting around: None Do you have any planned upcoming surgeries or dental procedures? No PAST MEDICAL HISTORY Diagnosis Date Allergic rhinitis due to other allergen Anxiety state, unspecified Blood dyscrasia Cholelithiasis Disorder of bone and cartilage, unspecified arthritis Disorders of iron metabolism hemochromatosis Ductal carcinoma (HCC) Esophageal reflux Gastroesophageal reflux Gallbladder disease 2016 H/O polymyalgia rheumatica 02/12/2018 Mental disorder Migraine, unspecified, with intractable migraine, so stated, without mention of status migrainosus Osteoarthrosis, unspecified whether generalized or localized, other specified sites Other diseases of trachea and bronchus, not elsewhere classified Other psoriasis PMH - PAST MEDICAL HISTORY OF infection in finger PAST SURGICAL HISTORY Procedure Laterality Date BREAST LUMPECTOMY HX Left 03/2018 CATARACT EXTRACTION HX 01/2014, 04/2014 bilateral COLONOSCOPY 07/18/2014 Stella - diverticulosis, otherwise normal COLONOSCOPY FLX DX W/COLLJ SPEC WHEN PFRMD 2006 Colonoscopy DILATION & CURETTAGE DX&/THER NONOBSTETRIC Dilation & curettage with misc ESOPHAGOGASTRODUODENOSCOPY TRANSORAL DIAGNOSTIC 11/12/2016 EGD LAPS ABD PRTM&OMENTUM DX W/WO SPEC BR/WA SPX 1974 Laparoscopy NOSE SURGERY HX 2012 trauma - PAST SURGICAL HISTORY OF fall 2006 endoscopy PAST SURGICAL HISTORY OF , , 09/20/96 EMB PAST SURGICAL HISTORY OF lanced finger and drained PAST SURGICAL HISTORY OF 02/11/2017 gallbladder removal - single site surgery performed at [facility] by Dr. Castro - under thoracic epidural and sedation. STRTCTC LOCLZJ GID BREAST BX/NEEDLE PLACEMENT Right 02/16/2018 Rt stereotactic vaccuum assisted core biopsy FAMILY HISTORY Problem Relation Age of Onset Hypertension Mother Diabetes Mother Heart Mother Hypertension Father Heart Father Heart disease Brother Breast Cancer Sister develpoed at 74 Diabetes Sister Heart disease Sister other (lung cancer) Brother Social History Tobacco Use Smoking status: Never Smokeless tobacco: Never Vaping Use Vaping status: Never Used Substance Use Topics Alcohol use: No Drug use: No MEDICATIONS Current Outpatient Medications Medication Sig Bacillus coagulans/inulin (PROBIOTIC WITH PREBIOTIC ORAL) Take 1 capsule by mouth once daily. OTC PRODUCT [place]- r/t [facility] study MAGNESIUM ORAL Take 100 mg by mouth once daily. Biotin 2,500 mcg cap Take 2,500 mg by mouth once daily. Cholecalciferol, Vitamin D3, 5,000 unit cap Take 1 capsule by mouth once daily. OTC PRODUCT Take 100 mg by mouth twice daily. Nattokinase 100mg: Take one(1) tablet daily. No current facility-administered medications for this visit. ALLERGIES ALLERGIES Allergen Reactions Sulfa (Sulfonamide * Anaphylaxis [place] Seed Rash Advil [Ibuprofen] Intolerance along with any non-steroidal anti- inflammatory Amoxicillin Intolerance Aspirin skin reaction- redness and burning Barium Iodide Rash Barium Sulfate Rash Darvon [Propoxyphen* Mental Status Change blacked out with postural changes Indocin [Indomethac* Intolerance Macrodantin [Nitrof* neuropathy Monistat 1 [Tiocona* headache and vaginal burning Monistat 3 [Miconaz* Intolerance vaginal burning, headache,nausea, relieved with benedryl Prednisolone Swelling swelling side of face, facial itching, reddened eye Prednisone dose related Progesterone migraine Psoriosis Lotion [O* Rash Tree [employer] Shrub Poll* Other: See Comments Tums [Calcium Carbo* Itchy eyes Uristat [Phenazopyr* Intolerance Vagifem [Estradiol] neuropathy Xalatan [Latanopros* Shortness of Breath chest pain Zantac [Ranitidine * Burning in Legs, headache , facial Twitching, jittery PHYSICAL EXAMINATION BP 158/60 (BP Site: Right Arm, BP Position: Sitting, BP Cuff Size: Regular Adult) Pulse 83 Temp36.7 C (98 F) (Temporal) Resp 14 Ht 165.1 cm (5' 5) Wt 65.8 kg (145 lb) SpO2 100% BMI 24.13 kg/m Neurological exam not performed today. LABS Cholesterol: Cholesterol, Total (mg/dL) Date Value 06/14/2022 179 01/27/2018 178 Total Cholesterol, Nonfasting (mg/dL) Date Value 09/26/2023 177 08/06/2019 166 LDL Cholesterol (mg/dL) Date Value 01/27/2018 105 LDL Cholesterol, Nonfasting (mg/dL) Date Value 09/26/2023 97 08/06/2019 96 HDL Cholesterol (mg/dL) Date Value 06/14/2022 63 01/27/2018 53 HDL Cholesterol, Nonfasting (mg/dL) Date Value 09/26/2023 66 08/06/2019 48 Triglyceride (mg/dL) Date Value 06/14/2022 89 01/27/2018 101 Triglycerides, Nonfasting (mg/dL) Date Value 09/26/2023 70 08/06/2019 110 Diabetes: Hemoglobin A1C (%) Date Value 09/26/2023 5.1 Patient Entered Questionnaires PROMIS/NeuroQoL Score Percentiles Percentiles provide an indication of how a patient's score ranks in relation to the [place] general population. > 31st percentile is within normal limits or better * < 31st percentile is at least SD worse than population, which may be clinically relevant < 16th percentile is at least 1 SD worse than population and warrants attention Depression Screening: PHQ-9 Scores: PHQ-9 Self-Harm (Item 9) Response: 0 - 9 No to Mild depression 0 - Not at all 10 - 14 Moderate depression 1 - Several Days > 15 Severe depression 2 - More than half the days Stroke Mechanism and Scales Cerebrovascular Disease w/o Stroke Event: Silent Cerebral Infarction IMPRESSION Mrs. Severino is a 78 year-old woman, with no known vascular risk factors, who presents to my clinic today for follow-up. I initially saw her in September 2023 for evaluation of incidental remote infarcts found on a brain MRI obtained for assessment of word-finding difficulty. Mild cognitive impairment (you scored 23/30 on MoCA testing) Your thyroid and vitamin B12 levels were normal Your anxiety is probably contributing to your symptoms. I am happy you are feeling better with CBT Your MRI does not show significant white matter disease or atrophy (shrinking of the brain) I am happy you have been doing aerobic exercise (anything that makes you sweat or lifts your heart rate) 30 minutes 4 times a week Coincidental tiny old strokes on your MRI Blood tests for lipid panel and hemoglobin A1c: within normal limits I do not recommend starting aspirin since you're already on a blood thinner No need for follow-up in CV department. I spent a total of 30 minutes on the date of service which included preparing to see the patient, [id number] patient care, obtaining and/or reviewing separately obtained history, performing a medically appropriate examination, and counseling and educating the patient/family/caregiver SIGNATURE Oli Avery MD April 20, 2024 10:32 AM CC No referring provider defined for this encounter. Katarina Medina [address] [address] [facility] NoteHNO ID: [id number] Author: OLI AVERY MD Service: ? Author Type: Physician Type: Progress Notes Filed: 04/20/2024 10:32 Note Text: [facility] Established Visit Consultation is requested by: No referring provider defined for this encounter. PCP: Katarina Medina [address] [address] [facility] History of Event: I am seeing Mrs. Severino as follow-up. She is a 78 year-old woman, with no known vascular risk factors, who presented to my clinic in September 2023 for evaluation of incidental remote infarcts found on a brain MRI obtained for assessment of progressively worsening word-finding difficulty. Her reports some degree of memory changes as well. Recently, she's been very anxious about multiple health concerns, including macular degeneration and allergies. History goes back to when she had COVID-19 infection twice, and after each time had brain fog. After her second COVID-19 infection, this kept on getting worse. She denies memory loss, but rather more difficulty finding specific words. MRI brain without bharat showed no acute process, mild WM disease reflective of chronic microvascular ischemic, small remote L occipital cortical infarct and small remote cerebellar infarct. My impression at the time: Mrs. Seevrino is a 78 year-old woman, with no known vascular risk factors, who presents to my clinic today for evaluation of incidental remote infarcts found on a brain MRI obtained for assessment of word-finding difficulty. 1. Mild cognitive impairment (you scored 23/30 on MoCA testing) Your thyroid and vitamin B12 levels were normal Your anxiety is probably contributing to your symptoms Your MRI does not show significant white matter disease or atrophy (shrinking of the brain) I would recommend: Aerobic exercise (anything that makes you sweat or lifts your heart rate) 30 minutes 5 times a week Referral to behavioral therapy for management of anxiety 2. Coincidental tiny old strokes on your MRI Blood tests for lipid panel and hemoglobin A1c We will be getting your records from [place] and we will let you know if there is any more workup we recommend I do not recommend starting aspirin since you're already on a blood thinner Follow-up with us in 6 months (virtually) Interval events: - LDL-C 97, hba1c 5.1% - Has been exercising on the treadmill for 30 minutes 4 times a week - Has been receiving cognitive behavioral therapy for anxiety which has made her feel great - Has been sleeping up to 7-8 hours every night Antiplatelets/Anticoagulants: - Nattokinase Residual Deficits: Cognitive impairments Current PT/OT/ST: None Current Living Situation: Home with spouse Current use of a mobility aid for walking/getting around: None Do you have any planned upcoming surgeries or dental procedures? No PAST MEDICAL HISTORY Diagnosis Date Allergic rhinitis due to other allergen Anxiety state, unspecified Blood dyscrasia Cholelithiasis Disorder of bone and cartilage, unspecified arthritis Disorders of iron metabolism hemochromatosis Ductal carcinoma (HCC) Esophageal reflux Gastroesophageal reflux Gallbladder disease 2016 H/O polymyalgia rheumatica 02/12/2018 Mental disorder Migraine, unspecified, with intractable migraine, so stated, without mention of status migrainosus Osteoarthrosis, unspecified whether generalized or localized, other specified sites Other diseases of trachea and bronchus, not elsewhere classified Other psoriasis PMH - PAST MEDICAL HISTORY OF infection in finger PAST SURGICAL HISTORY Procedure Laterality Date BREAST LUMPECTOMY HX Left 03/2018 CATARACT EXTRACTION HX 01/2014, 04/2014 bilateral COLONOSCOPY 07/18/2014 Stella - diverticulosis, otherwise normal COLONOSCOPY FLX DX W/COLLJ SPEC WHEN PFRMD 2006 Colonoscopy DILATION AND CURETTAGE DXAND/THER NONOBSTETRIC Dilation AND curettage with misc ESOPHAGOGASTRODUODENOSCOPY TRANSORAL DIAGNOSTIC 11/12/2016 EGD LAPS ABD PRTMANDOMENTUM DX W/WO SPEC BR/WA SPX 1973 Laparoscopy NOSE SURGERY HX 2011 trauma - PAST SURGICAL HISTORY OF fall 2005 endoscopy PAST SURGICAL HISTORY OF , , 09/20/96 EMB PAST SURGICAL HISTORY OF lanced finger and drained PAST SURGICAL HISTORY OF 02/11/2017 gallbladder removal - single site surgery performed at [facility] by Dr. Castro - under thoracic epidural and sedation. STRTCTC LOCLZJ GID BREAST BX/NEEDLE PLACEMENT Right 02/16/2018 Rt stereotactic vaccuum assisted core biopsy FAMILY HISTORY Problem Relation Age of Onset Hypertension Mother Diabetes Mother Heart Mother Hypertension Father Heart Father Heart disease Brother Breast Cancer Sister develpoed at 74 Diabetes Sister Heart disease Sister other (lung cancer) Brother Social History Tobacco Use Smoking status: Never Smokeles (more content not included)...[facility]01-17-2025 Hospital Discharge instructions Patient Education 03/26/2024 12:41:21 Allergic Reaction, Other (General) General Allergic Reactions An allergic reaction is a set of symptoms caused by an allergen. An allergen is something that causes a person s immune system to react. When a person comes in contact with an allergen, it causes thebody to release chemicals. These include the chemical histamine. Histamine causes swelling and itching. It may affect the entire body. This is called a general allergic reaction. Often symptoms affect only 1 part of the body. This is called a local allergic reaction. You are having an allergic reaction. Almost anything can cause one. Different people are allergic to different things. It is usually something that you ate or swallowed, came into contact with by getting or putting it on your skin or clothes, or something you breathed in the air. This can be very annoying and sometimes scary. Most of us think of allergic reactions when we have a rash or itchy skin. Symptoms can include: Itching of the eyes, nose, and roof of the mouth Runny or stuffy nose Watery eyes Sneezing or coughing A blocked feeling in the ear Red, itchy rash called hives Red and purple spots Rash, redness, welts, blisters Itching, burning, stinging, pain Dry, flaky, cracking, scaly skin Severe symptoms include: Swelling of the face, lips, or other parts of the body Hoarse voice Trouble swallowing, feeling like your throat is closing Trouble breathing, wheezing Nausea, vomiting, diarrhea, stomach cramps Feeling faint or lightheaded, rapid heart rate Sometimes the cause may be obvious. But there are so many things that can cause a reaction that youmay not be able to figure out. The most important things to help find your allergen are: Remembering when it started What you were doing at the time or just before that Any activities you were involved in Any new products or contacts Below are some common causes. But remember that almost anything can cause a reaction. You may not even be aware that you came into contact with one of these things: Dust, mold, pollen Plants (common ones are poison xochitl and poison oak, but there are many others) Animals Foods such as shrimp, shellfish, peanuts, milk products, gluten, and eggs. Also food colorings, flavorings, and additives. Insect bites or stings such as bees, mosquitos, fleas, ticks Medicines such as penicillin, sulfa medicines, amoxicillin, aspirin, and ibuprofen. But any medicine can cause a reaction. Jewelry such as nickel or gold. This can be new, or something you ve worn for a while, including zippers and buttons. Latex such as in gloves, clothes, toys, balloons, or some tapes. Some people allergic to latex may also have problems with foods like bananas, avocados, kiwi, papaya, or chestnuts. Lotions, perfumes, cosmetics, soaps, shampoos, skincare products, nail products Chemicals or dyes in clothing, linen, rehabilitation services manager, hair dyes, soaps, iodine Many viruses and common colds can cause a rash that is not an allergic reaction. Sometimes it is hard to tell the difference between allergies, sensitivity, or an intolerance to something. This is especially true with food. Many things can cause diarrhea, vomiting, stomach cramps, and skin irritation. Home care The goal of treatment is to help relieve the symptoms and get you feeling better. The rash will usually fade over several days. But it can sometimes last a couple of weeks. Over the next couple of days, there may be times when it is gets a little worse, and then better again. Here are some things to do: If you know what you are allergic to, stay away from it. Future reactions could be worse than this one. Avoid tight clothing and anything that heats up your skin (hot showers or baths, direct sunlight). Heat will make itching worse. An ice pack will relieve local areas of intense itching and redness. To make an ice pack, put ice cubes in a plastic bag that seals at the top. Wrap it in a thin, clean towel. Don t put the ice directly on the skin because it can damage the skin. Oral diphenhydramine is an sguy-dpf-[id number] antihistamine sold at pharmacy and grocery stores. Unless a prescription antihistamine was given, diphenhydramine may be used to reduce itching if large areas of the skin are involved. It may make you sleepy. So be careful using it in the daytime or when going to school, working, or driving. Note: Don t use diphenhydramine if you have glaucoma or if youare a man with trouble urinating due to an enlarged prostate. There are other antihistamines that won t make you so sleepy. These are good choices for daytime use. Ask your pharmacist for suggestions. Don t use diphenhydramine cream on your skin. It can cause a further reaction in some people. To help prevent an infection, don't scratch the affected area. Scratching may worsen the reaction and damage your skin. It can also lead to an infection. Always check the affected for signs of an infection. Call your healthcare provider and ask what you can use to help decrease the itching. To decrease allergic reactions, try the following: Use heat-steam to clean your home Use high-efficiency particulate (HEPA) vacuums and filters Stay away from food and pet triggers Kill any cockroaches Clean your house often Follow-up care Follow up with your healthcare provider, or as advised. If you had a severe reaction today, or if you have had several mild to medium allergic reactions in the past, ask your provider about allergy testing. This can help you find out what you are allergic to. If your reaction included dizziness, fainting, or trouble breathing or swallowing, ask your provider about carrying auto- injectable epinephrine. Call 911 Call 911 if any of these occur: Trouble breathing or swallowing, wheezing Cool, moist, pale skin Shortness of breath Hoarse voice or trouble speaking Confused Very drowsy or trouble awakening Fainting or loss of consciousness Rapid heart rate Feeling of dizziness or weakness or a sudden drop in blood pressure Feeling of doom Feeling lightheaded Severe nausea or vomiting, or diarrhea Seizure Swelling in the face, eyelids, lips, mouth, throat or tongue Drooling When to seek medical advice Call your healthcare provider right away if any of these occur: Spreading areas of itching, redness or swelling Nausea or stomach cramps or abdominal pain Continuing or recurring symptoms Spreading areas of redness, swelling, or itching Signs of infection at the affected site: oSpreading redness oIncreased pain or swelling oFluid or colored drainage from the site oFever of 100.4 F (38 C) or above lasting for 24 to 48 hours, or as directed by your provider [id number] [employer]. [address] [place] [address]. All rights reserved. This information is not intended as a substitute for professional medical care. Always follow yourhealthcare professional's instructions. Follow Up Care 03/26/2024 12:20:35 With:JOSHUA ARMAS MD Address: [address] [facility] [address] [place] [address] [phone] When:2-4 days [facility] 01-17-2025 Note Discharge Instructions Thank you for allowing [facility] to assist you with your healthcare needs. The following is importantdischarge information regarding your hospital visit. What to Do Next Instructions from Your Care Team Please follow-up with your primary care provider in the next 2-4 days they can monitor your recent symptoms. You can take your albuterol inhaler as needed up to every 4 hours for shortness of breath or difficulty breathing. If you develop an itchy rash, this would be a reason to use your oral Benadryl. You can take kwcg-yhc-sdzlnay allergy medications to help with your nasal congestion. If you develop swelling of your throat, shortness of breath, labored breathing, respiratory distress, associated nausea and vomiting, please return to the emergency department for reevaluation. No qualifying data available. Post Acute Orders No qualifying data available. You Need to Schedule the Following Appointments Follow Up with JOSHUA ARMAS MD When:Within 2-4 days Where:[address] [place] [address] [phone] Allergies No Known Medication Allergies Medications Please ask your primary doctor or pharmacist before taking any other medication not listed, including over the counter drugs, herbal medications, vitamins and or supplements as they may interact withyour home medications. Please take this list to your next doctor s visit. Bring all medications you take, including over the counter medications, herbals and other supplements with you to your doctor s visit. Patients and families are reminded to discard old lists and to update any records with all medication providers or retail pharmacies. Education Materials General Allergic Reactions An allergic reaction is a set of symptoms caused by an allergen. An allergen is something that causes a person s immune system to react. When a person comes in contact with an allergen, it causes thebody to release chemicals. These include the chemical histamine. Histamine causes swelling and itching. It may affect the entire body. This is called a general allergic reaction. Often symptoms affect only 1 part of the body. This is called a local allergic reaction. You are having an allergic reaction. Almost anything can cause one. Different people are allergic to different things. It is usually something that you ate or swallowed, came into contact with by getting or putting it on your skin or clothes, or something you breathed in the air. This can be very annoying and sometimes scary. Most of us think of allergic reactions when we have a rash or itchy skin. Symptoms can include: Itching of the eyes, nose, and roof of the mouth Runny or stuffy nose Watery eyes Sneezing or coughing A blocked feeling in the ear Red, itchy rash called hives Red and purple spots Rash, redness, welts, blisters Itching, burning, stinging, pain Dry, flaky, cracking, scaly skin Severe symptoms include: Swelling of the face, lips, or other parts of the body Hoarse voice Trouble swallowing, feeling like your throat is closing Trouble breathing, wheezing Nausea, vomiting, diarrhea, stomach cramps Feeling faint or lightheaded, rapid heart rate Sometimes the cause may be obvious. But there are so many things that can cause a reaction that youmay not be able to figure out. The most important things to help find your allergen are: Remembering when it started What you were doing at the time or just before that Any activities you were involved in Any new products or contacts Below are some common causes. But remember that almost anything can cause a reaction. You may not even be aware that you came into contact with one of these things: Dust, mold, pollen Plants (common ones are poison xochitl and poison oak, but there are many others) Animals Foods such as shrimp, shellfish, peanuts, milk products, gluten, and eggs. Also food colorings, flavorings, and additives. Insect bites or stings such as bees, mosquitos, fleas, ticks Medicines such as penicillin, sulfa medicines, amoxicillin, aspirin, and ibuprofen. But any medicine can cause a reaction. Jewelry such as nickel or gold. This can be new, or something you ve worn for a while, including zippers and buttons. Latex such as in gloves, clothes, toys, balloons, or some tapes. Some people allergic to latex may also have problems with foods like bananas, avocados, kiwi, papaya, or chestnuts. Lotions, perfumes, cosmetics, soaps, shampoos, skincare products, nail products Chemicals or dyes in clothing, linen, rehabilitation services manager, hair dyes, soaps, iodine Many viruses and common colds can cause a rash that is not an allergic reaction. Sometimes it is hard to tell the difference between allergies, sensitivity, or an intolerance to something. This is especially true with food. Many things can cause diarrhea, vomiting, stomach cramps, and skin irritation. Home care The goal of treatment is to help relieve the symptoms and get you feeling better. The rash will usually fade over several days. But it can sometimes last a couple of weeks. Over the next couple of days, there may be times when it is gets a little worse, and then better again. Here are some things to do: If you know what you are allergic to, stay away from it. Future reactions could be worse than this one. Avoid tight clothing and anything that heats up your skin (hot showers or baths, direct sunlight). Heat will make itching worse. An ice pack will relieve local areas of intense itching and redness. To make an ice pack, put ice cubes in a plastic bag that seals at the top. Wrap it in a thin, clean towel. Don t put the ice directly on the skin because it can damage the skin. Oral diphenhydramine is an iclf-dif-nnmavvl antihistamine sold at pharmacy and grocery stores. Unless a prescription antihistamine was given, diphenhydramine may be used to reduce itching if large areas of the skin are involved. It may make you sleepy. So be careful using it in the daytime or when going to school, working, or driving. Note: Don t use diphenhydramine if you have glaucoma or if youare a man with trouble urinating due to an enlarged prostate. There are other antihistamines that won t make you so sleepy. These are good choices for daytime use. Ask your pharmacist for suggestions. Don t use diphenhydramine cream on your skin. It can cause a further reaction in some people. To help prevent an infection, don't scratch the affected area. Scratching may worsen the reaction and damage your skin. It can also lead to an infection. Always check the affected for signs of an infection. Call your healthcare provider and ask what you can use to help decrease the itching. To decrease allergic reactions, try the following: Use heat-steam to clean your home Use high-efficiency particulate (HEPA) vacuums and filters Stay away from food and pet triggers Kill any cockroaches Clean your house often Follow-up care Follow up with your healthcare provider, or as advised. If you had a severe reaction today, or if you have had several mild to medium allergic reactions in the past, ask your provider about allergy testing. This can help you find out what you are allergic to. If your reaction included dizziness, fainting, or trouble breathing or swallowing, ask your provider about carrying auto- injectable epinephrine. Call 911 Call 911 if any of these occur: Trouble breathing or swallowing, wheezing Cool, moist, pale skin Shortness of breath Hoarse voice or trouble speaking Confused Very drowsy or trouble awakening Fainting or loss of consciousness Rapid heart rate Feeling of dizziness or weakness or a sudden drop in blood pressure Feeling of doom Feeling lightheaded Severe nausea or vomiting, or diarrhea Seizure Swelling in the face, eyelids, lips, mouth, throat or tongue Drooling When to seek medical advice Call your healthcare provider right away if any of these occur: Spreading areas of itching, redness or swelling Nausea or stomach cramps or abdominal pain Continuing or recurring symptoms Spreading areas of redness, swelling, or itching Signs of infection at the affected site: oSpreading redness oIncreased pain or swelling oFluid or colored drainage from the site oFever of 100.4 F (38 C) or above lasting for 24 to 48 hours, or as directed by your provider [phone] [employer]. [address] [place] [address], [place] [address]. All rights reserved. This information is not intended as a substitute for professional medical care. Always follow yourhealthcare professional's instructions. Additional Information VACCINATE! IT SAVES LIVES! Members of the community who have not yet received the COVID-19 vaccine and would like to receive it can visit one of [facility] vaccine clinics. There are many vaccine clinic locations within the [facility]. For locations and available times, please visit [email or web address]/. It is important to note that some COVID mobile vaccine clinics are held outdoors and may be canceled in rainy or stormy conditions. To learn more about pediatric vaccinations (ages 5-11), we invite you to visit the [facility] webpage. [email or web address]/pages/[email or web address]-[email or web address] stions.htmlTo learn more about the COVID-19 vaccine, we invite you to visit the CDC website for a list of frequently asked questions. https://www.cdc.gov/coronavirus/2019-ncov/vaccines/faq.html [facility] Patient Portal Access Instructions: Stay connected with your healthcare team and access your personal medical information anytime with the [employer] Patient Portal. If you would like a full copy of your medical records please contact the [facility] Medical Records Department Friday through Friday between 8a.m. and 4:30p.m. Please follow the directions below to access the portal: 1.Access the email account you provided upon registration to the hospital.2.Look for an invitation email from [facility].3.Open the email and access the invitation link: Accept Invitation to [facility]4.Fill in the required woodward to create your account. Sign into [email or web address] with your username and password that you created in the above steps to stay up to date. You can then view a summary of results, a summary of your visits, and the ability to download your summaries to your computer or send the information securely to a physician. Remember that your healthcare information is confidential, so carefully consider who you will allow to register on the [facility] Patient Portal for access to your information. You can also access the [facility] Patient Portal on the [employer] rao. Simply click on Health Records under [employer] and then click on the [employer] logo. HOW TO SAFELY DISPOSE OF PRESCRIPTION MEDICATIONS Please use one of the following methods to safely dispose of your unused medications. 1.Use a drug disposal kit: the drug disposal pouch allows you to safely discard your old and unuseddrugs. Ask your nurse to give you one when you are discharged.2.Visit a local take-back location: Many local pharmacies and police departments have programs that collect old and unwanted prescriptiondrugs. Call your local pharmacy or go to http://Nala.VoiceGem/4B6Xy7b to find one close to you.3.Make use of household items: Use cat litter or old coffee grounds to dispose medications if other options arenot available. Mix your drugs with these household products, seal them in an airtight container andthrow it into the garbage. Call [facility]: [phone] to be sure your drugs can be disposed of in this way. Some medicines may require a different approach.4.Never flush your medications down the toilet. IF YOU HAVE BEEN PRESCRIBED AN OPIOIDS FOR PAIN If you have been prescribed an opioid (such as hydrocodone, oxycodone or morphine), it is critical to understand the possible side effects and risks of opioid pain medications. Even when taken as directed, opioids can have several side effects including: Tolerance, meaning you might need to take more of a medication for the same pain relief. Nausea, vomiting and/or constipation. Sleepiness, dizziness, dry mouth, confusion, depression or itching. Physical dependence, meaning you have withdrawal symptoms when a medication is stopped ? this can develop within a few days. KNOW YOUR RESPONSIBILITIES It is important to know exactly how much and how often to take the opioid pain medications you are prescribed. Never take opioids in higher amounts or more often than prescribed. Do not combine opioids with alcohol or other drugs that cause drowsiness, such as benzodiazepines, also known as benzos,including diazepam and alprazolam, muscle relaxants or sleep aids. Never sell or share prescriptionopioids. This is illegal. Store opioids in a secure place and out of reach of others (including children, family, friends and visitors). The last page(s) of this document has been signed and retained as a CHART COPY Signatures Patient Education Materials Allergic Reaction, Other (General) Medication Leaflets My discharge plan and instructions have been reviewed and explained to me and I,EDER SEVERINO understand my current condition and have read and understand these discharge instructions. I have received a written copy of the plan/instructions. If I have questions, I am aware that I should contactmy doctor. Patient/Emergency Dispatcher Signature: Date/Time: Relationship to Patient: Witness Name/Signature: Date/Time: [facility]11-08-2024 History of Present illness Narrative * Catrachito Su Mammo Tech - 01/16/2024 8:30 AM EST Radiology Service Progress Note PATIENT NAME: Eder Severino DATE OF SERVICE: January 16, 2024 TIME: 9:39 AM PATIENT IDENTITY VERIFICATION COMPLETED USING TWO (2) IDENTIFIERS: Name and Date of confirmedby patient verbally. FALL SCREENING: Has the patient had 2 falls in the last year or 1 fall with injury or currently using an Ambulatory Assistive Device (Walker, Cane, Wheelchair, Crutches, etc.)? No PATIENT GENDER DATA: Female. status: : No status: NO. PATIENT RELEVANT IMPLANT DATA REVIEWED: Not Applicable PATIENT PRESENTS WITH AN IMPLANTABLE OR ATTACHED TABLET TECHNICIAN: No RADIOLOGY DEPARTMENT: Mammography PERIPHERAL IV DATA: Not applicable SIGNED BY: Harriet Catherine January 16, 2024 9:39 AM documented in [facility] NoteHNO ID: [id number] Author: CATRACHITO SU Mammo Tech Service: ? Author Type: Fruit Tester Type: Progress Notes Filed: 01/16/2024 09:39 Note Text: Radiology Service Progress Note PATIENT NAME: Eder Severino DATE OF SERVICE: January 16, 2024 TIME: 9:39 AM PATIENT IDENTITY VERIFICATION COMPLETED USING TWO (2) IDENTIFIERS: Name and Date of confirmed by patient verbally. FALL SCREENING: Has the patient had 2 falls in the last year or 1 fall with injury or currently using an Ambulatory Assistive Device (Walker, Cane, Wheelchair, Crutches, etc.)? No PATIENT GENDER DATA: Female. status: : No status: NO. PATIENT RELEVANT IMPLANT DATA REVIEWED: Not Applicable PATIENT PRESENTS WITH AN IMPLANTABLE OR ATTACHED TABLET TECHNICIAN: No RADIOLOGY DEPARTMENT: Mammography PERIPHERAL IV DATA: Not applicable SIGNED BY: Harriet Catherine January 16, 2024 9:[address] [facility]09-03-2024 NoteHNO ID: [id number] Author: LUIS RON DO Service: ? 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 2) DCIS. HPI: Mrs. Severino is a 77-year-old female diagnosed with hemochromatosis. She was diagnosed with temporal arteritis in 2017. She completed a 6 month course of tapering prednisone. She underwent EGD in the fall 2016 that demonstrated multiple duodenal ulcers. Had an abnormal screening mammogram 01/23/2018. There were indeterminate multiple calcifications in the left breast. Subsequent diagnostic left mammogram on 02/04/2018 revealed grouped fine pleomorphic calcifications in the left breast at the 12:00 middle depth. She underwent stereotactic core biopsy on 02/16/2018. Pathology: DCIS, grade 3. Estrogen receptors were positive (greater than 95%, strong) ND positive (greater than 95%, moderate and HER-2 3+. She underwent left breast lumpectomy on 03/12/2018. Final pathology demonstrated DCIS, grade 3 measuring 2 x 1 x 1 mm. Margin was negative. Closest margin was 5 mm from the anterior margin. Presents for ongoing hematologic management. Interim history: She continues to receive subcutaneous mistletoe injections for history of DCIS. She tolerates phlebotomy well. She continues on gilda kinase to help the flow. Typically takes it once a day. Increases to BID prior to phlebotomy. Appetite normal. No abdominal pain or specifically no right upper quadrant pain. Undergoing work up for mild cognitive impairment. PMH, medications and allergies as below personally reviewed by me today. Any changes documented in appropriate section. ROS: The 10 system review is otherwise negative. PHYSICAL EXAM: Vitals: Blood pressure 168/91, pulse 67, temperature 36.7 ?C (98 ?F), temperature source Temporal, weight 70.3 kg (155 lb), SpO2 99%. Well-appearing and in no acute distress. EYES: Sclerae are anicteric bilaterally. NECK: Supple. LYMPHATIC: There is no palpable cervical, supraclavicular adenopathy. RESPIRATORY: Normal passive respirations. CARDIOVASCULAR: Rhythm is regular. ABDOMEN: The abdomen is nondistended. Extremities: No swelling or edema. SKIN: No jaundice. LABS: Latest Ref Rng 05/12/2023 11/07/2023 WBC 3.70 - 11.00 k/uL 5.06 RBC 3.90 - 5.20 m/uL 4.89 Hemoglobin 11.5 - 15.5 g/dL 14.5 Hematocrit 36.0 - 46.0 % 42.7 MCV 80.0 - 100.0 fL 87.3 MCH 26.0 - 34.0 pg 29.7 MCHC 30.5 - 36.0 g/dL 34.0 RDW-CV 11.5 - 15.0 % 12.6 Platelet Count 150 - 400 k/uL 184 MPV 9.0 - 12.7 fL 10.0 Neut% % 63.4 Abs Neut (ANC) 1.45 - 7.50 k/uL 3.21 Lymph% % 24.7 Abs Lymph 1.00 - 4.00 k/uL 1.25 Fayette% % 7.7 Abs Fayette <0.87 k/uL 0.39 Eosin% % 2.6 Abs Eosin <0.46 k/uL 0.13 Baso% % 1.4 Abs Baso <0.11 k/uL 0.07 Immature Gran % % 0.2 IMMATURE GRANS (ABS) <0.10 k/uL <0.03 NRBC /100 WBC 0.0 Absolute nRBC <0.01 k/uL <0.01 DTYPE Auto Protein, Total 6.3 - 8.0 g/dL 6.2 (L) Albumin 3.9 - 4.9 g/dL 4.2 Calcium 8.5 - 10.2 mg/dL 10.1 Bilirubin, Total 0.2 - 1.3 mg/dL 0.6 Alkaline Phosphatase 34 - 123 U/L 77 AST 13 - 35 U/L 15 ALT 7 - 38 U/L 9 Glucose 74 - 99 mg/dL 88 BUN 7 - 21 mg/dL 13 Creatinine 0.58 - 0.96 mg/dL 0.72 Sodium 136 - 144 mmol/L 136 Potassium 3.7 - 5.1 mmol/L 4.0 Chloride 98 - 107 mmol/L 102 CO2 22 - 30 mmol/L 24 Anion Gap 8 - 15 mmol/L 10 eGFR >=60 mL/min/1.73m? 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 -Tolerating phlebotomy well. -Reviewed lab work with her. Mild increase in RBC number. Previous MPN panel negative. -White coat HTN. Home BPs consistently 120s/60s. -Discussed and answered questions she had. Plan: -Phlebotomy q 3 months. Okay for today. -Recommended she have her well water tested for iron content. -OV/CBC/iron studies/CMP/AFP in about a year. -She will continue following with her PCP for her other health care needs. 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 Plan: -Annual mammogram due in December--will order. Portions of this documentation were copied and pasted from previous office visit notes in order to provide a cohesive continuity of the history. The note has been reviewed and edited and updated as necessary. I spent a total of 25 minutes on the date of the service which included preparing to see the patient, [id number] patient care, completing clinical documentation, obtaining and/or reviewing separately obtained history, performing a medically appropriate (more content not included)...[facility]09-03-2024 History of Present illness Narrative* Asaf Luis Randhawa, - 11/11/2023 9:27 AM EDT DIAGNOSIS: 1) 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 2) DCIS. HPI: Mrs. Severino is a 77-year-old female diagnosed with hemochromatosis. She was diagnosed with temporal arteritis in 2016. She completed a 6 month course of tapering prednisone. She underwent EGD in the fall 2016 that demonstrated multiple duodenal ulcers. Had an abnormal screening mammogram 01/23/2018. There were indeterminate multiple calcifications inthe left breast. Subsequent diagnostic left mammogram on 02/04/2018 revealed grouped fine pleomorphic calcifications in the left breast at the 12:00 middle depth. She underwent stereotactic core biopsy on 02/16/2018. Pathology: DCIS, grade 3. Estrogen receptors were positive (greater than 95%, strong) ND positive (greater than 95%, moderate and HER-2 3+. She underwent left breast lumpectomy on 03/12/2018. Final pathology demonstrated DCIS, grade 3 measuring 2 x 1 x 1 mm. Margin was negative. Closest margin was 5 mm from the anterior margin. Presents for ongoing hematologic management. Interim history: She continues to receive subcutaneous mistletoe injections for history of DCIS. She tolerates phlebotomy well. She continues on gilda kinase to help the flow. Typically takes it once a day. Increases to BID prior to phlebotomy. Appetite normal. No abdominal pain or specifically no right upper quadrant pain. Undergoing work up for mild cognitive impairment. PMH, medications and allergies as below personally reviewed by me today. Any changes documented in appropriate section. ROS: The 10 system review is otherwise negative. PHYSICAL EXAM: Vitals: Blood pressure 168/91, pulse 67, temperature 36.7 C (98 F), temperature source Temporal, weight 70.3 kg (155 lb), SpO2 99%. Well-appearing and in no acute distress. EYES: Sclerae are anicteric bilaterally. NECK: Supple. LYMPHATIC: There is no palpable cervical, supraclavicular adenopathy. RESPIRATORY: Normal passive respirations. CARDIOVASCULAR: Rhythm is regular. ABDOMEN: The abdomen is nondistended. Extremities: No swelling or edema. SKIN: No jaundice. LABS: Latest Ref Rng 05/12/2023 11/07/2023 WBC 3.70 - 11.00 k/uL 5.06 RBC 3.90 - 5.20 m/uL 4.89 Hemoglobin 11.5 - 15.5 g/dL 14.5 Hematocrit 36.0 - 46.0 % 42.7 MCV 80.0 - 100.0 fL 87.3 MCH 26.0 - 34.0 pg 29.7 MCHC 30.5 - 36.0 g/dL 34.0 RDW-CV 11.5 - 15.0 % 12.6 Platelet Count 150 - 400 k/uL 184 MPV 9.0 - 12.7 fL 10.0 Neut% % 63.4 Abs Neut (ANC) 1.45 - 7.50 k/uL 3.21 Lymph% % 24.7 Abs Lymph 1.00 - 4.00 k/uL 1.25 Fayette% % 7.7 Abs Fayette <0.87 k/uL 0.39 Eosin% % 2.6 Abs Eosin <0.46 k/uL 0.13 Baso% % 1.4 Abs Baso <0.11 k/uL 0.07 Immature Gran % % 0.2 IMMATURE GRANS (ABS) <0.10 k/uL <0.03 NRBC /100 WBC 0.0 Absolute nRBC <0.01 k/uL <0.01 DTYPE Auto Protein, Total 6.3 - 8.0 g/dL 6.2 (L) Albumin 3.9 - 4.9 g/dL 4.2 Calcium 8.5 - 10.2 mg/dL 10.1 Bilirubin, Total 0.2 - 1.3 mg/dL 0.6 Alkaline Phosphatase 34 - 123 U/L 77 AST 13 - 35 U/L 15 ALT 7 - 38 U/L 9 Glucose 74 - 99 mg/dL 88 BUN 7 - 21 mg/dL 13 Creatinine 0.58 - 0.96 mg/dL 0.72 Sodium 136 - 144 mmol/L 136 Potassium 3.7 - 5.1 mmol/L 4.0 Chloride 98 - 107 mmol/L 102 CO2 22 - 30 mmol/L 24 Anion Gap 8 - 15 mmol/L 10 eGFR >=60 mL/min/1.73m 85 Iron 41 - 186 ug/dL 76 TIBC 232 - 386 ug/dL 321 Transferrin Saturation 15.0 - 57.0 % 23.7 AFP <11.0 ng/mL 3.1 Ferritin 14.7 - 205.1 ng/mL 36.3 ASSESSMENT/PLAN: (E83.110) Hereditary hemochromatosis (HCC) (primary encounter diagnosis) (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 -Tolerating phlebotomy well. -Reviewed lab work with her. Mild increase in RBC number. Previous MPN panel negative. -White coat HTN. Home BPs consistently 120s/60s. -Discussed and answered questions she had. Plan: -Phlebotomy q 3 months. Okay for today. -Recommended she have her well water tested for iron content. -OV/CBC/iron studies/CMP/AFP in about a year. -She will continue following with her PCP for her other health care needs. 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 Plan: -Annual mammogram due in December--will order. Portions of this documentation were copied and pasted from previous office visit notes in order to provide a cohesive continuity of the history. The note has been reviewed and edited and updated as necessary. I spent a total of 25 minutes on the date of the service which included preparing to see the patient, [id number] patient care, completing clinical documentation, obtaining and/or reviewing separately obtained history, performing a medically appropriate examination, counseling and educating the pat ient/family/caregiver, communicating with other HCPs (not separately reported), and communicating results to the patient/family/caregiver. Luis Ron DO documented in this encounterCleveland Leszdn80-07-2006 Telephone encounter Note * Telephone Encounter - Alvina Moreno RN - 10/01/2023 11:[address] Douglas's OV note of 01/14/2023: I discussed with the patient that I prefer performing an annual exam for 5 years after treatment for breast cancer or DCIS. From this point I recommend monthlyself breast exams for the patient. She may graduate from my care but she should still have an annual breast exam by a provider. If she notes any abnormalities she should see me immediately. Left voicemail for Eder, first and last name given on the voicemail greeting, regarding the above. Advised that if she has any questions, please call the office. Alvina Moreno RN October 01, 2023 11:31 AM [facility]07-24-[facility] Miscellaneous Notes* Telephone Encounter - Alvina Moreno RN - 10/01/2023 11:[address] Douglas's OV note of 01/14/2023: I discussed with the patient that I prefer performing an annual exam for 5 years after treatment for breast cancer or DCIS. From this point I recommend monthlyself breast exams for the patient. She may graduate from my care but she should still have an annual breast exam by a provider. If she notes any abnormalities she should see me immediately. Left voicemail for Eder, first and last name given on the voicemail greeting, regarding the above. Advised that if she has any questions, please call the office. Alvina Moreno RN October 01, 2023 11:31 AM * Telephone Encounter - Lula Liu - 10/01/2023 11:23 AM EDT Pt is requesting for Stella to place her yearly mammogram and asking if she needs to schedule a follow up as well. Please advise documented in this encounterK[facility] Telephone encounter Note * Telephone Encounter - Lula Liu - 10/01/2023 11:23 AM EDT Pt is requesting for Stella to place her yearly mammogram and asking if she needs to schedule a follow up as well. Please advise [facility]07-22-2024 Telephone encounter Note* Telephone Encounter - Mariam Ozuna - 09/29/2023 3:49 PM EDT Received fax from [facility]-22-[facility] Miscellaneous Notes* Telephone Encounter - Mariam Ozuna - 09/29/2023 3:49 PM EDT Received fax from [facility] * Telephone Encounter - Светлана Ravi RN - 09/29/2023 12:41 PM EDT Call to [facility] , transferred to cardiac lab, will push images andfax reports for most recent EChO and CUS. Светлана Ravi RN September 29, 2023 12:45 PM documented in this encounterK[facility]07-22-2024 Telephone encounter Note * Telephone Encounter - Светлана Ravi RN - 09/29/2023 12:41 PM EDT Call to [facility] , transferred to cardiac lab, will push images andfax reports for most recent EChO and CUS. Светлана Ravi RN September 29, 2023 12:45 PM [facility]-18-[facility] Instructions* Patient Instructions* Oli Avery MD - 09/25/2023 2:01 PM EDT Thank you for visiting the cerebrovascular center today. Mild cognitive impairment (you scored 23/30 on MoCA testing) Your thyroid and vitamin B12 levels were normal Your anxiety is probably contributing to your symptoms Your MRI does not show significant white matter disease or atrophy (shrinking of the brain) I would recommend: Aerobic exercise (anything that makes you sweat or lifts your heart rate) 30 minutes 5 times a week Referral to behavioral therapy for management of anxiety Coincidental tiny old strokes on your MRI Blood tests for lipid panel and hemoglobin A1c We will be getting your records from [facility] and we will let you know if there is any more workup we recommend I do not recommend starting aspirin since you're already on a blood thinner Follow-up with us in 6 months (virtually) Please do not hesitate to call us or contact us through [employer] with any questions. Oli Avery MD September 25, 2023 2:03 PM documented in this encounterK[facility]07-[facility] History of Present illness Narrative* Oli Avery MD - 09/25/2023 12:39 PM EDT [facility] Initial Visit Consultation is requested by: Airam Martinez [address] [facility] [id number] PCP: Katarina Medina [address] [place] [address] CEREBROVASCULAR HISTORY History of Event: Mrs. Severino is a 78 year-old woman, with no known vascular risk factors, who presents to my clinic today for evaluation of incidental remote infarcts found on a brain MRI obtained for assessment of progressively worsening word-finding difficulty. Her reports some degree of memory changesas well. Recently, she's been very anxious about multiple health concerns, including macular degeneration and allergies. History goes back to when she had COVID-19 infection twice, and after each time had brain fog. After her second COVID-19 infection, this kept on getting worse. She denies memory loss, but rather moredifficulty finding specific words. MRI brain without bharat showed no acute process, mild WM disease reflective of chronic microvascular ischemic, small remote L occipital cortical infarct and small remote cerebellar infarct. Do you have any planned upcoming surgeries or dental procedures? No PAST MEDICAL HISTORY Diagnosis Date Allergic rhinitis due to other allergen Anxiety state, unspecified Blood dyscrasia Cholelithiasis Disorder of bone and cartilage, unspecified arthritis Disorders of iron metabolism hemochromatosis Ductal carcinoma (HCC) Esophageal reflux Gastroesophageal reflux Gallbladder disease 2016 H/O polymyalgia rheumatica 02/12/2018 Mental disorder Migraine, unspecified, with intractable migraine, so stated, without mention of status migrainosus Osteoarthrosis, unspecified whether generalized or localized, other specified sites Other diseases of trachea and bronchus, not elsewhere classified Other psoriasis PMH - PAST MEDICAL HISTORY OF infection in finger PAST SURGICAL HISTORY Procedure Laterality Date BREAST LUMPECTOMY HX Left 03/2018 CATARACT EXTRACTION HX 01/2014, 04/2014 bilateral COLONOSCOPY 07/18/2014 Stella - diverticulosis, otherwise normal COLONOSCOPY FLX DX W/COLLJ SPEC WHEN PFRMD 2006 Colonoscopy DILATION & CURETTAGE DX&/THER NONOBSTETRIC Dilation & curettage with misc ESOPHAGOGASTRODUODENOSCOPY TRANSORAL DIAGNOSTIC 11/12/2016 EGD LAPS ABD PRTM&OMENTUM DX W/WO SPEC BR/WA SPX 1974 Laparoscopy NOSE SURGERY HX 2011 trauma - PAST SURGICAL HISTORY OF fall 2005 endoscopy PAST SURGICAL HISTORY OF , , 09/20/96 EMB PAST SURGICAL HISTORY OF lanced finger and drained PAST SURGICAL HISTORY OF 02/11/2017 gallbladder removal - single site surgery performed at [facility] by Dr. Castro - under thoracic epidural and sedation. STRTCTC LOCLZJ GID BREAST BX/NEEDLE PLACEMENT Right 02/16/2018 Rt stereotactic vaccuum assisted core biopsy FAMILY HISTORY Problem Relation Age of Onset Hypertension Mother Diabetes Mother Heart Mother Hypertension Father Heart Father Heart disease Brother Breast Cancer Sister develpoed at 74 Diabetes Sister Heart disease Sister other (lung cancer) Brother Social History Tobacco Use Smoking status: Never Smokeless tobacco: Never Vaping Use Vaping Use: Never used Substance Use Topics Alcohol use: No Drug use: No MEDICATIONS Current Outpatient Medications Medication Sig OTC PRODUCT 250 mg once daily. Quercetin Bacillus coagulans/inulin (PROBIOTIC WITH PREBIOTIC ORAL) Take 1 capsule by mouth once daily. OTC PRODUCT [place]- r/t [facility] study MAGNESIUM ORAL Take 100 mg by mouth once daily. Biotin 2,500 mcg cap Take 2,500 mg by mouth once daily. Cholecalciferol, Vitamin D3, 5,000 unit cap Take 1 capsule by mouth once daily. OTC PRODUCT Take 100 mg by mouth twice daily. Nattokinase 100mg: Take one(1) tablet daily. No current facility-administered medications for this visit. ALLERGIES ALLERGIES Allergen Reactions Sulfa (Sulfonamide * Anaphylaxis [place] Seed Rash Advil [Ibuprofen] Intolerance along with any non-steroidal anti- inflammatory Amoxicillin Intolerance Aspirin skin reaction- redness and burning Barium Iodide Rash Barium Sulfate Rash Darvon [Propoxyphen* Mental Status Change blacked out with postural changes Indocin [Indomethac* Intolerance Macrodantin [Nitrof* neuropathy Monistat 1 [Tiocona* headache and vaginal burning Monistat 3 [Miconaz* Intolerance vaginal burning, headache,nausea, relieved with benedryl Prednisolone Swelling swelling side of face, facial itching, reddened eye Prednisone dose related Progesterone migraine Psoriosis Lotion [O* Rash Tree And Shrub Poll* Other: See Comments Tums [Calcium Carbo* Itchy eyes Uristat [Phenazopyr* Intolerance Vagifem [Estradiol] neuropathy Xalatan [Latanopros* Shortness of Breath chest pain Zantac [Ranitidine * Burning in Legs, headache , facial Twitching, jittery PHYSICAL EXAMINATION BP (!) 151/48 (BP Site: Right Arm, BP Position: Sitting, BP Cuff Size: Regular Adult) Pulse 74 Ht 165.1 cm (5' 5) Wt 63.5 kg (140 lb) SpO2 99% BMI 23.30 kg/m [facility] LABS Cholesterol: Cholesterol, Total (mg/dL) Date Value 06/14/2022 179 01/27/2018 178 Total Cholesterol, Nonfasting (mg/dL) Date Value 08/06/2019 166 LDL Cholesterol (mg/dL) Date Value 06/14/2022 98 01/27/2018 105 LDL Cholesterol, Nonfasting (mg/dL) Date Value 08/06/2019 96 HDL Cholesterol (mg/dL) Date Value 06/14/2022 63 01/27/2018 53 HDL Cholesterol, Nonfasting (mg/dL) Date Value 08/06/2019 48 Triglyceride (mg/dL) Date Value 06/14/2022 89 01/27/2018 101 Triglycerides, Nonfasting (mg/dL) Date Value 08/06/2019 110 Diabetes: No results found for: HBA1C IMAGING assessment of memory loss. MRI brain without bharat showed no acute process, mild WM disease reflective of chronic microvascular ischemic, small remote L occipital cortical infarct and small remote cerebellar infarct. Patient Entered Questionnaires PROMIS/NeuroQoL Score Percentiles Percentiles provide an indication of how a patient's score ranks in relation to the [place] general population. > 31st percentile is within normal limits or better * < 31st percentile is at least SD worse than population, which may be clinically relevant < 16th percentile is at least 1 SD worse than population and warrants attention Depression Screening: PHQ-9 Scores: PHQ-9 Self-Harm (Item 9) Response: 0 - 9 No to Mild depression 0 - Not at all 10 - 14 Moderate depression 1 - Several Days > 15 Severe depression 2 - More than half the days 3 - Nearly every day Stroke Mechanism and Scales Ischemic or TIA: Ischemic Stroke - Silent incidental remote L occipital and L cerebellar infarcts TOAST Mechanism (CCF-MODIFIED): Stroke of Undetermined Etiology Stroke of Undetermined etiology: Incomplete Evaluation Modified Tinnie Score: Score: 0 NIH Stroke Scale: LOC: 0 LOC Questions: 0 LOC Commands: 0 LOC Normal Gaze: 0 Visual Woodward: 0 Facial Palsy: 0 Motor Left Arm: 0 Motor Right Arm: 0 Motor Left Le Motor Right Le Limb Ataxia: 0 Sensory: 0 Language: 0 Dysarthria: 0 Extinction/Neglect: 0 Total Daily NIHSS: 0 IMPRESSION Mrs. Severino is a 78 year-old woman, with no known vascular risk factors, who presents to my clinic today for evaluation of incidental remote infarcts found on a brain MRI obtained for assessment of word-finding difficulty. Mild cognitive impairment (you scored 23/30 on MoCA testing) Your thyroid and vitamin B12 levels were normal Your anxiety is probably contributing to your symptoms Your MRI does not show significant white matter disease or atrophy (shrinking of the brain) I would recommend: Aerobic exercise (anything that makes you sweat or lifts your heart rate) 30 minutes 5 times a week Referral to behavioral therapy for management of anxiety Coincidental tiny old strokes on your MRI Blood tests for lipid panel and hemoglobin A1c We will be getting your records from [place] and we will let you know if there is any more workup we recommend I do not recommend starting aspirin since you're already on a blood thinner Follow-up with us in 6 months (virtually) General Guidelines to Help Reduce Risk of Recurrent Stroke Blood Pressure Management: Blood Pressure reduction is recommended for both prevention of recurrent stroke and prevention of other vascular events in persons who have had an ischemic stroke or TIA and are beyond the first 24 hours. Several lifestyle modifications have been associated with BP reduction and are a reasonable part of a comprehensive antihypertensive therapy. These modifications include: - salt restriction (less than 2 grams per day) - weight loss - consumption of a diet rich in fruits, vegetables, and low-fat dairy products - regular aerobic physical activity - limited alcohol consumption Goal: Prehypertension (BP less than 130/80 mm Hg): - Perform annual BP screening and lifestyle modifications Hypertension: (BP greater than or equal to 130/80 mm Hg) - Combine medications with above lifestyle modifications to reach your goal blood pressure as defined above. - Monitor your blood pressure at home regularly to ensure you are reaching your goals Diabetes Mellitus: - the goal for glycemic control should be individualized based on the risk for adverse events, patient characteristics and preferences, and, for most patients with diabetes, achieving a goal of BdM7w=3% is recommended to reduce risk for microvascular complications. - treatment of diabetes should include glucose-lowering medications with proven cardiovascular benefit to reduce the risk for future major adverse cardiovascular events (eg, stroke, heart attack) Cholesterol and Lipid Management - Statin (rosuvastatin or atorvastatin) therapy with intensive lipid-lowering effects is recommended to reduce risk of stroke and cardiovascular events among patients with ischemic stroke or TIA who have LDL cholesterol > 100 mg/dL, or evidence of atherosclerosis. - A goal of LDL cholesterol < 70 mg/dL for stroke or TIA patients on lipid lowering therapy is recommended. - Ezetimibe in combination with statin therapy to lower the LDL cholesterol < 70 mg/DL is recommended, if statin therapy alone is insufficient to attain this treatment target. - For patients with ischemic stroke at very high risk, already taking maximally tolerated statin and ezetimibe and still have an LDL cholesterol > 70 mg/dL, it is reasonable to treat with a proprotein convertase subtilisin/kexin type 9 (PCSK9) inhibitor to prevent atherosclerotic cardiovascular or cerebrovascular events. - In patients with ischemic stroke or TIA, with fasting triglycerides 135 to 499 mg/dL and LDL cholesterol of 41 to 100 mg/dL, on moderate- or high-intensity statin therapy, with HbA1c <10%, and with no history of pancreatitis, atrial fibrillation, or severe heart failure, treatment with icosapent ethyl (IPE) 2 g twice a day is reasonable to reduce risk of recurrent stroke Diet: - Reduced sodium and increased potassium intake; DASH-style diet rich in fruits and vegetables (https://www.nhlbi.nih.gov/education/vhub-cksfeb-lxmc) - Consider Mediterranean diet supplemented with nuts Smoking and Tobacco Use: - Strongly recommend smoking and tobacco use cessation to reduce risk of stroke. - Counseling, nicotine products, and oral smoking cessation medications are effective for helping smokers quit and can be provided if needed. Alcohol Consumption: - Patients with ischemic stroke or TIA who drink greater than or equal to 2 alcoholic drinks a day,should eliminate alcohol use or reduce their consumption of alcohol to less than equal to 1 alcoholdrink per day to reduce stroke risk Exercise - In patients with stroke or TIA who are capable of physical activity, engaging in at least moderate-intensity aerobic activity for a minimum of 10 minutes 4 times a week or vigorous-intensity aerobic activity for a minimum of 20 minutes twice a week is indicated to lower the risk of recurrent stroke - In patients with deficits after stroke that impair their ability to exercise, supervision of an exercise program by a health care services manager such as a physical therapist or cardiac rehabilitationprofessional, in addition to routine rehabilitation, can be beneficial for secondary stroke prevention - In individuals with stroke or TIA who sit for long periods of uninterrupted time during the day, it may be reasonable to recommend breaking up sedentary time with intervals as short as 3 minutes ofstanding or light exercise every 30 minutes for their cardiovascular health I spent a total of 75 minutes on the date of service which included preparing to see the patient, [id number] patient care, obtaining and/or reviewing separately obtained history, performing a medically appropriate examination, and counseling and educating the patient/family/caregiver SIGNATURE Oli Avery MD September 25, 2023 12:45 PM IZABELLA Martinez [address] [facility] [address] Katarina Medina [address] [address] documented in this encounterK[facility] History of Present illness Narrative* Aida Izaguirre RT(R) - 09/02/2023 1:30 PM EDT Radiology Service Progress Note PATIENT NAME: Eder Severino DATE OF SERVICE: September 02, 2023 TIME: 2:25 PM PATIENT IDENTITY VERIFICATION COMPLETED USING TWO (2) IDENTIFIERS: Name and Date of confirmedby patient verbally. FALL SCREENING: Has the patient had 2 falls in the last year or 1 fall with injury or currently using an Ambulatory Assistive Device (Walker, Cane, Wheelchair, Crutches, etc.)? No PATIENT GENDER DATA: Female. status: : No status: NO. PATIENT RELEVANT IMPLANT DATA REVIEWED: Yes PATIENT PRESENTS WITH AN IMPLANTABLE OR ATTACHED TABLET TECHNICIAN: No RADIOLOGY DEPARTMENT: MR; Exam(s) Completed: Head: Routine Brain PERIPHERAL IV DATA: Not applicable SIGNED BY: RT Dante(R) September 02, 2023 2:25 PM documented in this encounterKet[facility]06-07-2024 Instructions* Patient Instructions* Airam Martinez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 I performed a left needle localization lumpectomy/partial mastectomy on March 12, 2018 under IV sedation with local anesthesia. The pathology demonstrated: MICROSCOPIC DIAGNOSIS Left breast, lumpectomy: Ductal carcinoma in situ. See cancer checklist below. AM:alessandra 03/18/18 COMMENT DUCTAL CARCINOMA IN SITU SUMMARY: Specimen - partial breast Procedure - excision with wire-guidance Lymph node sampling - no lymph nodes present Specimen integrity - single intact specimen Specimen size - 6 x 6 x 3.5 cm Specimen laterality - left Size (extent) of DCIS - 2 x 1 x 1 mm Histologic type - ductal carcinoma in situ Architectural patterns - papillary and cribriform types with focal central necrosis. Nuclear grade - Grade 3/3 Necrosis - focally present, central Margins - uninvolved by DCIS. Distance from closest (anterior) margin - 5 mm Lymph nodes - not present Other findings - biopsy cavity with associated reactive change. Fibrocystic change and focal adenosis. Microcalcifications - present in non-neoplastic tissue. Ancillary Studies from previous specimen ([id number] / [id number]): ER - >95%, strong ND - >95%, moderate Her2 g[place] ([facility]) - 3+ Her2 by FISH - not performed. Pathologic Staging: pTis(DCIS) Nx Mx Eder notes he is doing quite well. Post operative pain has been well controlled. The patient denies nausea. The patient`s appetite has been good. She completed her radiation treatment.. She is doing well without complaints. She had her follow-upmammogram on January 07, 2023 IMPRESSION: BENIGN FINDING There is no mammographic evidence of malignancy. Return to annual mammogram screening schedule is recommended. The patient also noted 1 episode of blood per rectum a few months previously. She otherwise notes no other bowel complaints. She states she would decline colonoscopy but question whether she should have a stool test for occult blood. VITALS: Blood pressure 150/92, pulse 70, temperature (!) 35.9 C (96.7 F), height 165.1 cm (5' 5), weight 67.7 kg (149 lb 3.2 oz), SpO2 96 %. On examination, the left skin incision is clean, dry, and intact. There slight puckering at the midaspect of the incision with no skin changes or other concerning abnormalities. Bilateral breast andaxillary exam is unremarkable. Assessment IMPRESSION: Status Post needle localization lumpectomy/partial mastectomy for left breast DCIS. likely left pectoral muscle strain, 1 episode of lower GI bleeding, declines colonoscopy PLAN: Eder is instructed to perform her self breast exams and to follow that area. If she notes any difficulties, she should contact me immediately. The patient is instructed to follow me immediately if she notes any abnormalities in her monthly self breast exam. She may return to her annual mammograms. I discussed with the patient that I prefer performing an annual exam for 5 years after treatment for breast cancer or DCIS. From this point I recommend monthly self breast exams for the patient. She may graduate from my care but she should still have an annual breast exam by a provider. If she notes any abnormalities she should see me immediately. I ordered a Cologuard test. I let the patient know that in general colonoscopy is the best test to evaluate for colon problems as Cologuard test has concerning sensitivity and specificity issues but feel that the Cologuard test would be superior simple stool occult blood test. Diagnoses: (Z12.11) Screening for colon cancer (primary encounter diagnosis) Return to Clinic: The patient is instructed to follow-up with in 12 months with mammogram prior to that visit. The patient may choose to follow-up at that time with whichever provider she wishes to perform her breast exams in the future. Mi Douglas MD documented in this encounterK[facility]11-07-2023 Nurse Note* Josefa Goldsmith RN - 01/14/2023 2:10 PM EST REVIEW OF SYSTEMS: General: The patient denies fatigue, denies weight loss, denies weight gain, denies feeling hot, and denies feelings of cold. Eyes: The patient NOTES glaucoma, NOTES eye injury/surgery, wears glasses or contacts. Ear/Nose/Throat: The patient NOTES allergies, denies hayfever, denies ear infections, and denies bloody noses. Cardiovascular: The patient denies chest pain, denies heart disease, denies high blood pressure,denies cardiac stent, denies prior heart attack, denies irregular heart beat, denies high cholesterol, denies poor circulation, denies heart failure, other cardiac issues, denies claudication, denies cold feet, denies peripheral arterial stent. Respiratory: The patient denies tuberculosis, denies pneumonia, denies frequent cough, denies pulmonary embolism, denies shortness of breath, and denies coughing up blood. Gastrointestinal: The patient denies difficulty swallowing, NOTES acid reflux, denies ulcers, denies vomiting, denies jaundice/hepatitis, NOTES gallbladder problems, denies black or tarry stools, denies hemorrhoids, denies bleeding from rectum, denies diverticulitis, denies constipation, denies diarrhea, denies loss of stool control, and denies hernias. Kidney/Bladder: The patient denies kidney stones, NOTES urine infections, and denies bloody urine. Skin: The patient denies a history of skin cancer, denies bleeding/changing moles, and NOTES a history of skin rash. Neurologic: The patient denies a history of epilepsy/convulsions, NOTES headaches, denies head/spinal injuries, and denies stroke/TIA. Psychiatric: The patient denies psychiatric medications, denies depression, and denies voices, denies substance abuse. Endocrine: The patient denies thyroid disorders, denies diabetes, and denies hormonal problems. Hematologic: The patient denies a history of bruising, denies bleeding, and denies anemia, denies blood clots. Infections: The patient NOTES a history of measles and mumps, denies rheumatic fever, and denies sexually transmitted diseases. Musculoskeletal: The patient denies back pain/injury, denies back problems, denies sciatica, deniesknee/foot trouble, NOTES arthritis, or denies gout. When was patient's last Mammogram screening? 01/07/2023 Last Colonoscopy: 2014 Josefa Goldsmith RN documented in this encounterK[facility]10-31-2023 History of Present illness Narrative* Yonny Mott Mammo Tech - 01/07/2023 8:50 AM EDT Radiology Service Progress Note PATIENT NAME: Eder Severino DATE OF SERVICE: January 07, 2023 TIME: 8:29 AM PATIENT IDENTITY VERIFICATION COMPLETED USING TWO (2) IDENTIFIERS: Name and Date of confirmedby patient verbally. FALL SCREENING: Has the patient had 2 falls in the last year or 1 fall with injury or currently using an Ambulatory Assistive Device (Walker, Cane, Wheelchair, Crutches, etc.)? No PATIENT GENDER DATA: Female. status: : No status: NO. PATIENT RELEVANT IMPLANT DATA REVIEWED: Not Applicable RADIOLOGY DEPARTMENT: Mammography PERIPHERAL IV DATA: Not applicable SIGNED BY: Harriet Hernandez January 07, 2023 8:29 AM documented in this encounterKettering [facility]10-19-2023 Miscellaneous Notes* Telephone Encounter - Claudia Armstrong LPN - 12/26/2022 9:23 AM EDT Patient given results and verbalized understanding of instructions given. Claudia Armstrong LPN * Telephone Encounter - Pauline Muse APRN.CNP - 12/26/2022 7:32 AM EDT Stool was negative for bacteria. Still awaiting further results documented in this encounterKettering [facility]10-14-2023 History of Present illness Narrative* Pauline Muse APRN.CNP - 12/21/2022 11:59 AM EDT Subjective Came in with complaints of blood in her stool. Patient says it is bright red. Patient says she strained to have a bowel movement this morning and it happened afterwards. Patient does believe she has a history of hemorrhoids. Patient does not have any nausea vomiting abdominal pain fever chills. The history is provided by the patient. No specialized language instructor was used. Diarrhea Review of Systems Constitutional: Negative. Gastrointestinal: Positive for blood in stool and diarrhea. Skin: Negative. Objective Physical Exam Constitutional: Appearance: Normal appearance. Pulmonary: Effort: Pulmonary effort is normal. Abdominal: General: Abdomen is flat. Palpations: Abdomen is soft. Tenderness: There is no abdominal tenderness. Neurological: Mental Status: She is alert. PAST MEDICAL HISTORY Diagnosis Date Allergic rhinitis due to other allergen Anxiety state, unspecified Blood dyscrasia Cholelithiasis Disorder of bone and cartilage, unspecified arthritis Disorders of iron metabolism hemochromatosis Esophageal reflux Gastroesophageal reflux Gallbladder disease 2016 H/O polymyalgia rheumatica 02/12/2018 Mental disorder Migraine, unspecified, with intractable migraine, so stated, without mention of status migrainosus Osteoarthrosis, unspecified whether generalized or localized, other specified sites Other diseases of trachea and bronchus, not elsewhere classified Other psoriasis PMH - PAST MEDICAL HISTORY OF infection in finger PAST SURGICAL HISTORY Procedure Laterality Date BREAST LUMPECTOMY HX Left 03/2018 CATARACT EXTRACTION HX 01/2014, 04/2014 bilateral COLONOSCOPY 07/18/2014 Stella - diverticulosis, otherwise normal COLONOSCOPY FLX DX W/COLLJ SPEC WHEN PFRMD 2006 Colonoscopy DILATION & CURETTAGE DX&/THER NONOBSTETRIC Dilation & curettage with misc ESOPHAGOGASTRODUODENOSCOPY TRANSORAL DIAGNOSTIC 11/12/2016 EGD LAPS ABD PRTM&OMENTUM DX W/WO SPEC BR/WA SPX 1974 Laparoscopy NOSE SURGERY HX 2011 trauma - PAST SURGICAL HISTORY OF fall 2005 endoscopy PAST SURGICAL HISTORY OF , , 09/20/96 EMB PAST SURGICAL HISTORY OF lanced finger and drained PAST SURGICAL HISTORY OF 02/11/2017 gallbladder removal - single site surgery performed at [facility] by Dr. Castro - under thoracic epidural and sedation. STRTCTC LOCLZJ GID BREAST BX/NEEDLE PLACEMENT Right 02/16/2018 Rt stereotactic vaccuum assisted core biopsy ALLERGIES Sulfa (Sulfonamide Antibiotics), [place] Seed, Advil [Ibuprofen], Amoxicillin, Aspirin,Barium Iodide, Darvon [Propoxyphene Hcl], Indocin [Indomethacin Sodium], Macrodantin [Nitrofurantoin], Monistat 1 [Tioconazole], Monistat 3 [Miconazole], Prednisolone, Prednisone, Progesterone, Psoriosis Lotion [Other], Tums [Calcium Carbonate], Uristat [Phenazopyridine Hcl], Vagifem [Estradiol], Xalatan [Latanoprost], and Zantac [Ranitidine Hcl] MEDICATIONS Bacillus coagulans/inulin (PROBIOTIC WITH PREBIOTIC ORAL) Take 1 capsule by mouth once daily. Biotin 2,500 mcg cap Take 2,500 mg by mouth once daily. cephALEXin (KEFLEX) 500 mg capsule Take 1 capsule by mouth two times a day for 7 days. Cholecalciferol, Vitamin D3, 5,000 unit cap Take 1 capsule by mouth once daily. lutein 10 mg tab Take 1 tablet by mouth once daily. MAGNESIUM ORAL Take 100 mg by mouth once daily. OTC PRODUCT Take 100 mg by mouth twice daily. Nattokinase 100mg: Take one(1) tablet daily. OTC PRODUCT [place]- r/t [facility] OTC PRODUCT 250 mg once daily. Quercetin TURMERIC ORAL Take by mouth. (Patient not taking: Reported on 12/15/2022) FAMILY HISTORY Problem Relation Age of Onset Hypertension Mother Diabetes Mother Heart Mother Hypertension Father Heart Father Heart disease Brother Breast Cancer Sister develpoed at 74 Diabetes Sister Heart disease Sister other (lung cancer) Brother Social History Tobacco Use Smoking status: Never Smokeless tobacco: Never Vaping Use Vaping Use: Never used Substance Use Topics Alcohol use: No Drug use: No ASSESSMENT/PLAN: 1. Rectal bleeding - ICD9: 569.3, ICD10: K62.5 - OVA + PARA MICROSCOPIC - ENTERIC BACTERIAL PANEL BY PCR - HEMOCUE B/O Treatment at this time. Patient is going to make a follow-up with her primary care. Patient was instructed on red flag symptoms to watch for and if they worsen she will go to the emergency room. Patient was okay with this care plan. Pauline Muse APRN.JONATHAN documented in this encounterK[facility]-08-[facility]23 History of Present illness Narrative* Pauline Muse APRN.CNP - 12/15/2022 11:19 AM EDT CC: Patient presents with: Urinary Frequency: burning with urination x today, congestion HPI Eder Severino is a 77 year old female who presents with complaint of possible UTI. These symptoms have been present for 1 days. Associated symptoms: burning and frequency Denies: fever, chills, sweats, and flank pain Treatments: nothing The ROS was otherwise negative. PMH, Medications, labs, allergies, and recent past visits with PCP were reviewed and updated as able. PHYSICAL EXAM: BP 124/72 Pulse 80 Temp 36.4 C (97.6 F) Resp 16 Wt 67.1 kg (148 lb) SpO2 98% BMI 24.73 kg/m General: Well appearing and alert CV: Regular rate and rhythm without obvious murmur Lungs: clear to auscultation bilaterally Back: straight and symmetric Abdomen: soft, nontender, nondistended PAST MEDICAL HISTORY Diagnosis Date Allergic rhinitis due to other allergen Anxiety state, unspecified Blood dyscrasia Cholelithiasis Disorder of bone and cartilage, unspecified arthritis Disorders of iron metabolism hemochromatosis Esophageal reflux Gastroesophageal reflux Gallbladder disease 2016 H/O polymyalgia rheumatica 02/12/2018 Mental disorder Migraine, unspecified, with intractable migraine, so stated, without mention of status migrainosus Osteoarthrosis, unspecified whether generalized or localized, other specified sites Other diseases of trachea and bronchus, not elsewhere classified Other psoriasis PMH - PAST MEDICAL HISTORY OF infection in finger PAST SURGICAL HISTORY Procedure Laterality Date BREAST LUMPECTOMY HX Left 03/2018 CATARACT EXTRACTION HX 01/2014, 04/2014 bilateral COLONOSCOPY 07/18/2014 Stella - diverticulosis, otherwise normal COLONOSCOPY FLX DX W/COLLJ SPEC WHEN PFRMD 2006 Colonoscopy DILATION & CURETTAGE DX&/THER NONOBSTETRIC Dilation & curettage with misc ESOPHAGOGASTRODUODENOSCOPY TRANSORAL DIAGNOSTIC 11/12/2016 EGD LAPS ABD PRTM&OMENTUM DX W/WO SPEC BR/WA SPX 1974 Laparoscopy NOSE SURGERY HX 2011 trauma - PAST SURGICAL HISTORY OF fall 2005 endoscopy PAST SURGICAL HISTORY OF , , 09/20/96 EMB PAST SURGICAL HISTORY OF lanced finger and drained PAST SURGICAL HISTORY OF 02/11/2017 gallbladder removal - single site surgery performed at [facility] by Dr. Castro - under thoracic epidural and sedation. [facility] BX/NEEDLE PLACEMENT Right 02/16/2018 Rt stereotactic vaccuum assisted core biopsy ALLERGIES Sulfa (Sulfonamide Antibiotics), Advil [Ibuprofen], Amoxicillin, Aspirin, Barium Iodide, Darvon [Propoxyphene Hcl], Indocin [Indomethacin Sodium], Macrodantin [Nitrofurantoin], Monistat 1 [Tioconazole], Monistat 3 [Miconazole], Prednisolone, Prednisone, Progesterone, Psoriosis Lotion [Other], Tums [Calcium Carbonate], Uristat [Phenazopyridine Hcl], Vagifem [Estradiol], Xalatan [Latanoprost], and Zantac [Ranitidine Hcl] MEDICATIONS lutein 10 mg tab Take 1 tablet by mouth once daily. OTC PRODUCT 250 mg once daily. Quercetin Bacillus coagulans/inulin (PROBIOTIC WITH PREBIOTIC ORAL) Take 1 capsule by mouth once daily. OTC PRODUCT [place]- r/t [facility] study MAGNESIUM ORAL Take 100 mg by mouth once daily. Biotin 2,500 mcg cap Take 2,500 mg by mouth once daily. Cholecalciferol, Vitamin D3, 5,000 unit cap Take 1 capsule by mouth once daily. OTC PRODUCT Take 100 mg by mouth twice daily. Nattokinase 100mg: Take one(1) tablet daily. cephALEXin (KEFLEX) 500 mg capsule Take 1 capsule by mouth two times a day for 7 days. TURMERIC ORAL Take by mouth. (Patient not taking: Reported on 12/15/2022) FAMILY HISTORY Problem Relation Age of Onset Hypertension Mother Diabetes Mother Heart Mother Hypertension Father Heart Father Heart disease Brother Breast Cancer Sister develpoed at 74 Diabetes Sister Heart disease Sister other (lung cancer) Brother Social History Tobacco Use Smoking status: Never Smokeless tobacco: Never Vaping Use Vaping Use: Never used Substance Use Topics Alcohol use: No Drug use: No ASSESSMENT/PLAN: 1. Urinary frequency - ICD9: 788.41, ICD10: R35.0 (primary diagnosis) - UA DIP, URINE (POC) - URINE CULTURE 2. Recurrent UTI (urinary tract infection) - ICD9: 599.0, ICD10: N39.0 - CEPHALEXIN 500 MG CAPSULE Prescription instructions reviewed with patient as applicable. Potential red flag symptoms discussed with the patient. Reviewed appropriate action plan to take if red flag symptoms occur. Patient agreeable to treatment plan. Pauline Muse APRN.JONATHAN documented in this encounterKettering [facility]08-21-2023 History of Present illness Narrative* Eva Heard PA-C - 10/28/2022 3:12 PM EDT This note was created using NoteWriter. Subjective Eder J Shultzman is a 77 year old female. HPI Presents with a chief complaint of scratchy throat over the past 2 days. She had a rash around her mouth for 3 to 4 weeks and had been seen by a homeopathic doctor in [facility]. She had mentioned this to her and the doctor had recommended she have an VERO and some other antibody testing ordered asthe patient was concerned she was allergic to sunflower seeds. She had eaten some sunflower seeds before this rash started. She does have a history of multiple other allergies and has seen an upper extremity surgeon and had immunotherapy previously. Last night she felt like her throat was more scratchy and painful and some lumps in the front of her throat so she had called the nurse who recommended she was seen in urgent care. Patient is not having any trouble breathing. No wheezing. No fever. No cough, runny nose, vomiting or diarrhea. No other URI symptoms. Her throat actually feels better today. Review of Systems HENT: Positive for mouth sores and sore throat. Negative for congestion. Respiratory: Negative. Cardiovascular: Negative. Gastrointestinal: Negative. Genitourinary: Negative. Musculoskeletal: Negative. All other systems reviewed and are negative. PAST MEDICAL HISTORY Diagnosis Date Allergic rhinitis due to other allergen Anxiety state, unspecified Blood dyscrasia Cholelithiasis Disorder of bone and cartilage, unspecified arthritis Disorders of iron metabolism hemochromatosis Esophageal reflux Gastroesophageal reflux Gallbladder disease 2016 H/O polymyalgia rheumatica 02/12/2018 Mental disorder Migraine, unspecified, with intractable migraine, so stated, without mention of status migrainosus Osteoarthrosis, unspecified whether generalized or localized, other specified sites Other diseases of trachea and bronchus, not elsewhere classified Other psoriasis PMH - PAST MEDICAL HISTORY OF infection in finger Current Outpatient Medications Medication Sig Dispense Refill TURMERIC ORAL Take by mouth. lutein 10 mg tab Take 1 tablet by mouth once daily. OTC PRODUCT 250 mg once daily. Quercetin Bacillus coagulans/inulin (PROBIOTIC WITH PREBIOTIC ORAL) Take 1 capsule by mouth once daily. OTC PRODUCT [place]- r/t [facility] study MAGNESIUM ORAL Take 100 mg by mouth once daily. Biotin 2,500 mcg cap Take 2,500 mg by mouth once daily. Cholecalciferol, Vitamin D3, 5,000 unit cap Take 1 capsule by mouth once daily. OTC PRODUCT Take 100 mg by mouth twice daily. Nattokinase 100mg: Take one(1) tablet daily. 0 No current facility-administered medications for this visit. PAST SURGICAL HISTORY Procedure Laterality Date BREAST LUMPECTOMY HX Left 03/2018 CATARACT EXTRACTION HX 01/2014, 04/2014 bilateral COLONOSCOPY 07/18/2014 Stella - diverticulosis, otherwise normal COLONOSCOPY FLX DX W/COLLJ SPEC WHEN PFRMD 2006 Colonoscopy DILATION & CURETTAGE DX&/THER NONOBSTETRIC Dilation & curettage with misc ESOPHAGOGASTRODUODENOSCOPY TRANSORAL DIAGNOSTIC 11/12/2016 EGD LAPS ABD PRTM&OMENTUM DX W/WO SPEC BR/WA SPX 1974 Laparoscopy NOSE SURGERY HX 2011 trauma - PAST SURGICAL HISTORY OF fall 2005 endoscopy PAST SURGICAL HISTORY OF , , 09/20/96 EMB PAST SURGICAL HISTORY OF lanced finger and drained PAST SURGICAL HISTORY OF 02/11/2017 gallbladder removal - single site surgery performed at [facility] by Dr. Castro - under thoracic epidural and sedation. STRTCTC LOCLZJ GID BREAST BX/NEEDLE PLACEMENT Right 02/16/2018 Rt stereotactic vaccuum assisted core biopsy FAMILY HISTORY Problem Relation Age of Onset Hypertension Mother Diabetes Mother Heart Mother Hypertension Father Heart Father Heart disease Brother Breast Cancer Sister develpoed at 74 Diabetes Sister Heart disease Sister other (lung cancer) Brother Social History Tobacco Use Smoking status: Never Smokeless tobacco: Never Vaping Use Vaping Use: Never used Substance Use Topics Alcohol use: No Drug use: No Objective BP 195/72 Pulse 65 Temp 36.4 C (97.6 F) Resp 18 Wt 67.4 kg (148 lb 9.6 oz) SpO2 97% BMI24.83 kg/m Physical Exam Vitals reviewed. Constitutional: Appearance: Normal appearance. HENT: Head: Normocephalic and atraumatic. Right Ear: Tympanic membrane, ear canal and external ear normal. Left Ear: Tympanic membrane, ear canal and external ear normal. Nose: Nose normal. Mouth/Throat: Mouth: Mucous membranes are moist. Pharynx: Oropharynx is clear. Uvula midline. No pharyngeal swelling, oropharyngeal exudate, posterior oropharyngeal erythema or uvula swelling. Tonsils: No tonsillar exudate or tonsillar abscesses. Comments: Some dry skin noted to the left upper lip. No other sores noted. Cardiovascular: Rate and Rhythm: Normal rate and regular rhythm. Heart sounds: Normal heart sounds. Pulmonary: Effort: Pulmonary effort is normal. Breath sounds: Normal breath sounds. Musculoskeletal: Cervical back: Neck supple. Lymphadenopathy: Cervical: No cervical adenopathy. Skin: General: Skin is warm and dry. Neurological: Mental Status: She is alert. Assessment and Plan ASSESSMENT/PLAN: 1. Throat irritation - ICD9: 478.29, ICD10: J39.2 No signs of anaphylaxis on exam here. Patient had sores in her mouth several weeks ago that have gone away at this point. Discussed she could trial Zyrtec for the sore throat. She does have allergic rhinitis listed on her chart may be from some postnasal drip. Recommended for the antibody testing to go to the physician that recommended it to have it ordered. May also see PCP or allergy. Discussedwe do not order antibody testing through express care. Patient voiced understanding. Eva Heard PA-C documented in this encounterKettering [facility]08-21-2023 Instructions* Patient Instructions* Eva Heard PA-C - 10/28/2022 3:08 PM EDT Zyrtec 10 mg daily as needed Call your homeopathic physician to see if labs were ordered there. If not see PCP or upper extremity surgeon to follow up regarding antibody testing. documented in this encounterKettering [facility]08-18-2023 Miscellaneous Notes* Telephone Encounter - Mi Douglas MD - 10/25/2022 7:09 AM EDT Mammogram order entered documented in this [facility]08-17-2023 Miscellaneous Notes* Telephone Encounter - Kelly Darby - 10/24/2022 1:39 PM EDT Patient is calling to schedule annual visit with you for a follow up. Please place order for mammography and return call to patient to arrange mammography appointment and appointment with Dr Douglas documented in this encounterKettering Health [facility]05-08-2023 History of Present illness Narrative* Izabel Sams APRN.EQUESTRIAN TRAINER - 07/15/2022 7:47 AM EDT Subjective The history is provided by the patient. No specialized language instructor was used. HPI Eder Severino is a 77 year old female who presents today for CC of cough, congestion, sorethroat and sinus congestion for 6 days. She is using natural methods, no medicaitons. She did not test for covid declines covid today. No known exposure. BP 128/62 Pulse 88 Temp 36.9 C (98.5 F) Resp 18 Wt 67.9 kg (149 lb 12.8 oz) SpO2 98% BMI 25.03 kg/m Social History Tobacco Use Smoking status: Never Smokeless tobacco: Never Vaping Use Vaping Use: Never used Substance Use Topics Alcohol use: No Drug use: No PAST MEDICAL HISTORY Diagnosis Date Allergic rhinitis due to other allergen Anxiety state, unspecified Blood dyscrasia Cholelithiasis Disorder of bone and cartilage, unspecified arthritis Disorders of iron metabolism hemochromatosis Esophageal reflux Gastroesophageal reflux Gallbladder disease 2016 H/O polymyalgia rheumatica 02/12/2018 Mental disorder Migraine, unspecified, with intractable migraine, so stated, without mention of status migrainosus Osteoarthrosis, unspecified whether generalized or localized, other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 this encounter (statuses as of 07/15/2022) [facility] of [facility] Narrative* Problem Noted Date Resolved Date Hemochromatosis 08/03/2014 07/17/2016 Disorder of iron metabolism, unspecified 29/2 012 07/17/2016 Overview: ICD-10 Go-Live Urgency of urination 05/09/2010 05/22/2011 Hematuria 02/27/2005 04/21/2005 documented as of this encounter (statuses as of 08/13/2022) [facility] Narrative* Problem Noted Date Resolved Date Hemochromatosis 08/03/2014 07/17/2016 Disorder of iron metabolism, unspecified 29/2 012 07/17/2016 Overview: ICD-10 Go-Live Urgency of urination 05/09/2010 05/22/2011 Hematuria 02/27/2005 04/21/2005 documented as of this encounter (statuses as of 08/14/2022) [facility] Narrative* Problem Noted Date Diagnosed Date Resolved Date Hemochromatosis 08/03/2014 07/17/2016 Disorder of iron metabolism, unspecified 11/06/2011 07/17/2016 Overview: ICD-10 Go-Live Urgency of urination 05/09/2010 012 Hematuria 02/27/2005 04/21/2005 documented as of this encounter (statuses as of 10/25/2022) [facility] Narrative* Problem Noted Date Diagnosed Date Resolved Date Hemochromatosis 08/03/2014 07/17/2016 Disorder of iron metabolism, unspecified 11/06/2011 07/17/2016 Overview: ICD-10 Go-Live Urgency of urination 05/09/2010 012 Hematuria 02/27/2005 04/21/2005 documented as of this encounter (statuses as of 10/29/2022) [facility] Narrative* Problem Noted Date Diagnosed Date Resolved Date Hemochromatosis 08/03/2014 07/17/2016 Disorder of iron metabolism, unspecified 11/06/2011 07/17/2016 Overview: ICD-10 Go-Live Urgency of urination 05/09/2010 012 Hematuria 02/27/2005 04/21/2005 documented as of this encounter (statuses as of 11/12/2022) [facility] Narrative* Problem Noted Date Diagnosed Date Resolved Date Hemochromatosis 08/03/2014 07/17/2016 Disorder of iron metabolism, unspecified 11/06/2011 07/17/2016 Overview: ICD-10 Go-Live Urgency of urination 05/09/2010 012 Hematuria 02/27/2005 04/21/2005 documented as of this encounter (statuses as of 12/15/2022) [facility] Narrative* Problem Noted Date Diagnosed Date Resolved Date Hemochromatosis 08/03/2014 07/17/2016 Disorder of iron metabolism, unspecified 11/06/2011 07/17/2016 Overview: ICD-10 Go-Live Urgency of urination 05/09/2010 012 Hematuria 02/27/2005 04/21/2005 documented as of this encounter (statuses as of 12/21/2022) [facility] Narrative* Problem Noted Date Diagnosed Date Resolved Date Hemochromatosis 08/03/2014 07/17/2016 Disorder of iron metabolism, unspecified 11/06/2011 07/17/2016 Overview: ICD-10 Go-Live Urgency of urination 05/09/2010 012 Hematuria 02/27/2005 04/21/2005 documented as of this encounter (statuses as of 12/26/2022) [facility] Narrative* Problem Noted Date Diagnosed Date Resolved Date Hemochromatosis 08/03/2014 07/17/2016 Disorder of iron metabolism, unspecified 11/06/2011 07/17/2016 Overview: ICD-10 Go-Live Urgency of urination 05/09/2010 012 Hematuria 02/27/2005 04/21/2005 documented as of this encounter (statuses as of 01/12/2023) [facility] Narrative* Problem Noted Date Diagnosed Date Resolved Date Hemochromatosis 08/03/2014 07/17/2016 Disorder of iron metabolism, unspecified 11/06/2011 07/17/2016 Overview: ICD-10 Go-Live Urgency of urination 05/09/2010 012 Hematuria 02/27/2005 04/21/2005 documented as of this encounter (statuses as of 01/12/2023) [facility] Narrative* Problem Noted Date Diagnosed Date Resolved Date Hemochromatosis 08/03/2014 07/17/2016 Disorder of iron metabolism, unspecified 11/06/2011 07/17/2016 Overview: ICD-10 Go-Live Urgency of urination 05/09/2010 012 Hematuria 02/27/2005 04/21/2005 documented as of this encounter (statuses as of 01/15/2023) [facility] Narrative* Problem Noted Date Diagnosed Date Resolved Date Hemochromatosis 08/03/2014 07/17/2016 Disorder of iron metabolism, unspecified 11/06/2011 07/17/2016 Overview: ICD-10 Go-Live Urgency of urination 05/09/2010 012 Hematuria 02/27/2005 04/21/2005 documented as of this encounter (statuses as of 02/10/2023) [facility] Narrative* Problem Noted Date Diagnosed Date Resolved Date Hemochromatosis 08/03/2014 07/17/2016 Disorder of iron metabolism, unspecified 11/06/2011 07/17/2016 Overview: ICD-10 Go-Live Urgency of urination 05/09/2010 012 Hematuria 02/27/2005 04/21/2005 documented as of this encounter (statuses as of 02/11/2023) [facility] Narrative* Problem Noted Date Diagnosed Date Resolved Date Hemochromatosis 08/03/2014 07/17/2016 Disorder of iron metabolism, unspecified 11/06/2011 07/17/2016 Overview: ICD-10 Go-Live Urgency of urination 05/09/2010 012 Hematuria 02/27/2005 04/21/2005 documented as of this encounter (statuses as of 02/14/2023) [facility] Narrative* Problem Noted Date Diagnosed Date Resolved Date Hemochromatosis 08/03/2014 07/17/2016 Disorder of iron metabolism, unspecified 11/06/2011 07/17/2016 Overview: ICD-10 Go-Live Urgency of urination 05/09/2010 012 Hematuria 02/27/2005 04/21/2005 documented as of this encounter (statuses as of 05/08/2023) [address]27-2015 History of Past illness Narrative* Problem Noted Date Diagnosed Date Resolved Date Hemochromatosis 08/03/2014 07/17/2016 Disorder of iron metabolism, unspecified 11/06/2011 07/17/2016 Overview: ICD-10 Go-Live Urgency of urination 05/09/2010 012 Hematuria 02/27/2005 04/21/2005 documented as of this encounter (statuses as of 05/13/2023) [facility] for [facility] Narrative* Chief Complaint COVID TEST Covid + per home test Annual Reason for Visit Suspected COVID-19 v irus infection Upper respiratory infection Vitamin D deficiency GERD (gastroesophageal reflux disease) Hemochromatosis Neuropathy Psoriasis [facility] Work Phone: Evaluation + Plan note No data available for this section [facility] Evaluation note* Diagnosis Onset Date Resolution Status Suspected COVID-19 virus infection acute Upper respiratory infection acute Vitamin D deficiency acute GERD (gastroesophageal reflux disease) chronic Hemochromatosis chronic Neuropathy chronic Psoriasis [facility] Work Phone: Evaluation note* Diagnosis Hereditary hemochromatosis (HCC)- Primary Hereditary hemochromatosis Disorder of iron metabolism Other disorders of iron metabolism [facility]* Diagnosis Onset Date Resolution Status Vitamin D deficiency acute GERD (gastroesophageal reflux disease) chronic Hemochromatosis chronic Neuropathy chronic Psoriasis chronic Allergic rhinitis acute Change in stool acute Exposure to mold acute Osteopenia 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 a cute GERD (gastroesophageal reflux disease) chronic Seasonal allergies [facility] Work Phone: Evaluation note* Diagnosis Onset Date Resolution Status Allergic rhinitis acute Change in stool acute Exposure to mold acute Osteopenia 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 a cute GERD (gastroesophageal reflux disease) chronic Seasonal allergies [facility] Work Phone: Evaluation note* Diagnosis Disorder of iron metabolism- Primary Other disorders of iron metabolism [facility] Diagnosis Onset Date Resolution Status Exposure to mold acute Osteopenia 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 a cute Vitamin D deficiency acute Hemochromatosis chronic Macular degeneration chronic [facility] Work Phone: Evaluation note* Diagnosis 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 documented in this encounter [facility] note* Diagnosis Hereditary hemochromatosis (HCC)- Primary Hereditary hemochromatosis documented in this encounter [facility] note* Diagnosis Hereditary hemochromatosis (HCC)- Primary Hereditary hemochromatosis Secondary polycythemia Polycythemia, secondary History of ductal carcinoma in situ (DCIS) of breast documented in this encounter [facility] note* Diagnosis Hereditary hemochromatosis (HCC)- Primary Hereditary hemochromatosis Disorder of iron metabolism Other disorders of iron metabolism documented in this encounter [facility] note* Diagnosis Hereditary hemochromatosis (HCC)- Primary [facility]reditary hemochromatosis [facility] Diagnosis URI with cough and congestion- Primary documented in this encounter [facility] note* Diagnosis Hereditary hemochromatosis (HCC)- Primary Hereditary hemochromatosis Secondary polycythemia Polycythemia, secondary History of ductal carcinoma in situ (DCIS) of breast documented in this encounter [facility] note* Diagnosis Disorder of iron metabolism- Primary Other disorders of iron metabolism Hereditary hemochromatosis (HCC) Hereditary hemochromatosis documented in this encounter [facility] note* Diagnosis Screening breast examination- Primary Breast screening, unspecified documented in this encounter [facility] note* Diagnosis Throat irritation- Primary Other diseases of pharynx, not elsewhere classified documented in this encounter [facility] note* Diagnosis Urinary frequency- Primary Recurrent UTI (urinary tract infection) Urinary tract infection, site not specified documented in this encounter [facility] note* Diagnosis Rectal bleeding- Primary Hemorrhage of rectum and anus [facility]* Diagnosis Screening breast examination Breast screening, unspecified documented in this encounter [facility] note* Diagnosis Ductal carcinoma in situ (DCIS) of left breast [facility]* Diagnosis Hereditary hemochromatosis (HCC) Hereditary hemochromatosis [facility]* Diagnosis Screening for colon cancer- Primary Special screening for malignant neoplasms, colon [facility] Diagnosis Onset Date Resolution Status Ductal carcinoma in situ (DCIS) of breast acute Osteopenia 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 a cute Visual changes acute Vitamin D deficiency acute Neuropathy chronic Vegan diet [facility] Work Phone: Evaluation note* Diagnosis Onset Date Resolution Status Ductal carcinoma in situ (DCIS) of breast acute Osteopenia 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 a cute Visual changes acute Vitamin D deficiency acute Neuropathy chronic Vegan diet chronic Urinary tract infection none active [facility] Work Phone: Evaluation note* Diagnosis Hereditary hemochromatosis (HCC)- Primary Hereditary hemochromatosis Secondary polycythemia Polycythemia, secondary [facility] Diagnosis Disorder of iron metabolism- Primary Other disorders of iron metabolism [facility] Diagnosis Disorder of iron metabolism- Primary Other disorders of iron metabolism [facility] Diagnosis Onset Date Resolution Status Aortic stenosis acute Brain fog acute Oral allergy syndrome acute Vitamin D deficiency acute Arthritis chronic Cataract chronic Glaucoma chronic Hemochromatosis chronic Macular degeneration chronic Osteopenia chronic [facility] Work Phone: Evaluation note* Diagnosis Medication management- Primary Encounter for long-term (current) use of other medications [facility] Subjective memory complaints- Primary Memory loss Impaired memory Memory loss Forgetfulness Other general symptoms [facility] Diagnosis Disorder of iron metabolism- Primary Other disorders of iron metabolism [facility] Diagnosis Hypercholesterolemia- Primary Pure hypercholesterolemia History of CVA (cerebrovascular accident) Transient ischemic attack (TIA), and cerebral infarction without residual deficits Anxiety about health Mild cognitive impairment Mild cognitive impairment, so stated Remote history of stroke Transient ischemic attack (TIA), and cerebral infarction without residual deficits [facility] Diagnosis ASTHMA UNSPECIFIED Unspecified asthma Esophageal reflux OSTEOPENIA Disorder of bone and cartilage, unspecified Allergy Allergy, unspecified not elsewhere classified Disorder of iron metabolism Other disorders of iron metabolism Hereditary hemochromatosis (HCC)- Primary Hereditary hemochromatosis Encounter for screening breast examination [facility] Diagnosis ASTHMA UNSPECIFIED Unspecified asthma Esophageal reflux OSTEOPENIA Disorder of bone and cartilage, unspecified Allergy Allergy, unspecified not elsewhere classified Disorder of iron metabolism Other disorders of iron metabolism Hereditary hemochromatosis (HCC)- Primary Hereditary hemochromatosis Disorder of iron metabolism Other disorders of iron metabolism [facility] Diagnosis ASTHMA UNSPECIFIED Unspecified asthma Esophageal reflux OSTEOPENIA Disorder of bone and cartilage, unspecified Allergy Allergy, unspecified not elsewhere classified Disorder of iron metabolism Other disorders of iron metabolism Impaired memory Memory loss Forgetfulness Other general symptoms [facility]* Diagnosis ASTHMA UNSPECIFIED Unspecified asthma Esophageal reflux OSTEOPENIA Disorder of bone and cartilage, unspecified Allergy Allergy, unspecified not elsewhere classified Disorder of iron metabolism Other disorders of iron metabolism Encounter for screening breast examination [facility]* Diagnosis ASTHMA UNSPECIFIED Unspecified asthma Esophageal reflux OSTEOPENIA Disorder of bone and cartilage, unspecified Allergy Allergy, unspecified not elsewhere classified Disorder of iron metabolism Other disorders of iron metabolism Hereditary hemochromatosis (HCC)- Primary Hereditary hemochromatosis [facility]* Diagnosis ASTHMA UNSPECIFIED Unspecified asthma Esophageal reflux OSTEOPENIA Disorder of bone and cartilage, unspecified Allergy Allergy, unspecified not elsewhere classified 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 documented in this encounter [facility] note* Diagnosis ASTHMA UNSPECIFIED Unspecified asthma Esophageal reflux OSTEOPENIA Disorder of bone and cartilage, unspecified Allergy Allergy, unspecified not elsewhere classified Disorder of iron metabolism Other disorders of iron metabolism Silent cerebral infarction (HCC)- Primary Mild cognitive impairment Mild cognitive impairment, so stated Functional gastrointestinal disorder Unspecified functional disorder of stomach [facility] Diagnosis ASTHMA UNSPECIFIED Unspecified asthma Esophageal reflux OSTEOPENIA Disorder of bone and cartilage, unspecified Allergy Allergy, unspecified not elsewhere classified Disorder of iron metabolism Other disorders of iron metabolism Hereditary hemochromatosis (HCC)- Primary Hereditary hemochromatosis Disorder of iron metabolism Other disorders of iron metabolism [facility]* Diagnosis ASTHMA UNSPECIFIED Unspecified asthma Esophageal reflux OSTEOPENIA Disorder of bone and cartilage, unspecified Allergy Allergy, unspecified not elsewhere classified Disorder of iron metabolism Other disorders of iron metabolism Alteration in metabolic function- Primary Brain fog Allergy, initial encounter High vitamin D level Hypervitaminosis D [facility] Diagnosis ASTHMA UNSPECIFIED Unspecified asthma Esophageal reflux OSTEOPENIA Disorder of bone and cartilage, unspecified Allergy Allergy, unspecified not elsewhere classified Disorder of iron metabolism Other disorders of iron metabolism Primary open angle glaucoma (POAG) of left eye, severe stage- Primary Primary open angle glaucoma (POAG) of right eye, mild stage Epiretinal membrane (ERM) of right eye Exudative age-related macular degeneration of right eye with active choroidal neovascularization (HCC) [facility] Diagnosis ASTHMA UNSPECIFIED Unspecified asthma Esophageal reflux OSTEOPENIA Disorder of bone and cartilage, unspecified Allergy Allergy, unspecified not elsewhere classified 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 [facility] Diagnosis ASTHMA UNSPECIFIED Unspecified asthma Esophageal reflux OSTEOPENIA Disorder of bone and cartilage, unspecified Allergy Allergy, unspecified not elsewhere classified Disorder of iron metabolism Other disorders of iron metabolism Hereditary hemochromatosis- Primary Ductal carcinoma in situ (DCIS) of left breast [facility]* Diagnosis ASTHMA UNSPECIFIED Unspecified asthma Esophageal reflux OSTEOPENIA Disorder of bone and cartilage, unspecified Allergy Allergy, unspecified not elsewhere classified 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 [facility] instructionsAdditional Instructions Recommend following up with your primary care physician. Over the counter pain medicine as needed for pain such as Tylenol. Return back to the ED if symptoms change or worsen. Recommend allergy medicine for your nasal congestion. Cannot prescribe Flonase as you have steroids listed as an allergy.[facility] Work Phone: Reason for referral (narrative)* Diagnostic Procedure Only (Routine) - Authorized Specialty Diagnoses / Procedures Referred By Lzi lutz Referred To Contact US IMAGING Diagnoses Hereditary hemochromatosis (HCC) Procedures US ABD RT UPPER QUADRANT US ABDOMINAL REAL TIME W/IMAGE LIMITED Luis Ron DO [address] [place] [address] Us Imaging Referral ID Status Reason Start Date Expiration Date Visits Requested Visits Authorized [id number] Authorized Auto-Generat ed Referral 05/22/2022 06/21/2023 1 1 [facility] for referral (narrative)* Diagnostic Procedure Only (Routine) - Pending Review Specialty Diagnoses / Procedures Referred By Contlinda lutz Referred To Contact BR IMAGING Diagnoses Screening breast examination Procedures GOOD SCREENING SCREENING MAMMOGRAPHY BI 2-VIEW BREAST INC CAD Stella, Mi T, MD [address] [place] [address] [facility] Imaging [address] [place] [address] Referral ID Status Reason Start Date Expiration Date Visits Requested Visits Authorized [id number] Pending Review Auto-Generat ed Referral 10/25/2022 11/24/2023 1 1 [facility] for referral (narrative)* Diagnostic Procedure Only (Routine) - Closed Specialty Diagnoses / Procedures Referred By Liz lutz Referred To Contact BR IMAGING Diagnoses Screening breast examination Procedures GOOD SCREENING SCREENING MAMMOGRAPHY BI 2-VIEW BREAST INC Mi Menard MD [address] [place] [address] [facility] Imaging [address] [place] [address] Referral ID Status Reason Start Date Expiration Date V isits Requested Visits Authorized [id number] Closed Auto-Generate d Referral 10/25/2022 11/24/2023 1 1 [facility] for referral (narrative)* Diagnostic Procedure Only (Routine) - Closed Specialty Diagnoses / Procedures Referred By Liz lutz Referred To Contact BR IMAGING Diagnoses Ductal carcinoma in situ (DCIS) of left breast Procedures GOOD SCREENING SCREENING MAMMOGRAPHY BI 2-VIEW BREAST INC Mi Menard MD [address] [place] [address] [facility] Imaging [address] [facility] [place] [address] Referral ID Status Reason Start Date Expiration Date V isits Requested Visits Authorized [id number] Closed Auto-Generate d Referral 01/03/2022 02/03/2022 1 1 [facility] for referral (narrative)* Diagnostic Procedure Only (Routine) - Closed Specialty Diagnoses / Procedures Referred By Liz lutz Referred To Contact US IMAGING Diagnoses Hereditary hemochromatosis (HCC) Procedures US ABD RT UPPER QUADRANT US ABDOMINAL REAL TIME W/IMAGE LIMITED Luis Ron DO [address] [place] [address] [place] [address] Referral ID Status Reason Start Date Expiration Date V isits Requested Visits Authorized [id number] Closed Auto-Generate d Referral 05/22/2022 06/21/2023 1 1 [facility] for referral (narrative)* Diagnostic Procedure Only (Routine) - Authorized Specialty Diagnoses / Procedures Referred By Stephonac t Referred To Contact BR IMAGING Diagnoses Encounter for screening breast examination Procedures GOOD SCREENING W MALOU SCREENING DIGITAL BREAST TOMOSYNTHESIS BI SCREENING MAMMOGRAPHY BI 2-VIEW BREAST INC CAD Luis Ron DO [address] [facility] [place] [address] Br Imaging [address] [place] [id number] Referral ID Status Reason Start Date Expiration Date Visits Requested Visits Authorized [id number] Authorized Auto-Generat ed Referral 11/11/2023 12/10/2024 1 1 T [facility] for referral (narrative)No reason for referral information [facility]WAv[facility] Work Phone: Reason for visit Narrative* Diagnostic Procedure Only (Routine) - Closed Specialty Diagnoses / Procedures Referred By Contac t Referred To Contact BR IMAGING Diagnoses Screening breast examination Procedures GOOD SCREENING SCREENING MAMMOGRAPHY BI 2-VIEW BREAST INC CAD Mi Douglas MD [address] [place] [address] Br Imaging [address] [place] [address] Referral ID Status Reason Start Date Expiration Date V isits Requested Visits Authorized [id number] Closed Auto-Generate d Referral 10/25/2022 11/24/2023 1 1 [facility] for visit Narrative* Diagnostic Procedure Only (Routine) - Closed Specialty Diagnoses / Procedures Referred By Contac t Referred To Contact BR IMAGING Diagnoses Ductal carcinoma in situ (DCIS) of left breast Procedures GOOD SCREENING SCREENING MAMMOGRAPHY BI 2-VIEW BREAST INC CAD Mi Douglas MD [address] [place] [address] Br Imaging [address] [place] [address] Referral ID Status Reason Start Date Expiration Date V isits Requested Visits Authorized [id number] Closed Auto-Generate d Referral 01/03/2022 02/03/2022 1 1 [facility] Diagnostic Procedure Only (Routine) - Closed Specialty Diagnoses / Procedures Referred By Liz lutz Referred To Contact BR IMAGING Diagnoses Encounter for screening breast examination Procedures GOOD SCREENING W MALOU SCREENING DIGITAL BREAST TOMOSYNTHESIS BI SCREENING MAMMOGRAPHY BI 2-VIEW BREAST INC CAD Luis Ron DO [address] [place] [address] Br Imaging [address] [place] [address] Referral ID Status Reason Start Date Expiration Date V isits Requested Visits Authorized [id number] Closed Auto-Generate d Referral 11/11/2023 12/10/2024 1 1 [facility] Family History No Family History Records Found Relationship Condition Age at Onset Recorded Date/T slime Not Specified Malignant neoplasm Unknown sister Malignant neoplasm of breast Unknown mother Diabetes mellitus Unknown Myocardial infarction 68 Arthritis Unknown Disorder of liver Unknown Osteoporosis Unknown father Myocardial infarction 75 brother Myocardial infarction 44 Parkinson's disease Unknown Advance Directives No Advanced Directives Records Found Advance Directive Response Recorded Date/ Time Advance Directives Yes February 11:37pm Living Will Yes October 16, 2018 11:28am Power of Amplifier Mechanic Yes October 16 11:28am Documents on File Type Date Recorded Patient Emergency Dispatcher Expl anation Advance Directive(s) 11/12/2016 9:46 AM Advance Directive Response Recorded Date/ Time Name of Medical Power of Amplifier Mechanic Randall Restrepo david October 31, 2021 1:00pm Advance Directives Yes February 11:37pm Living Will Yes October 31 1:00pm Power of Amplifier Mechanic Yes October 31 022 1:00pm Advance Directive Response Recorded Date/ Time Name of Medical Power of Amplifier Mechanic Randall Restrepo n October 31, 2021 12:00pm Advance Directives Yes February 10:37pm Living Will Yes October 31 12:00pm Power of Amplifier Mechanic Yes October 31, 2 022 12:00pm Advance Directive Response Recorded Date/ Time Advance Directives Yes January 2:25pm Living Will Yes January 25, 2 022 2:25pm Power of Amplifier Mechanic Yes January 25, 2022 2:25pm Advance Directive Response Recorded Date/ Time Advance Directives Yes January 3:25pm Living Will Yes January 25, 022 3:25pm Power of Amplifier Mechanic Yes January 25, 2022 3:25pm Advance Directive Response Recorded Date/ Time Advance Directives Yes July 20 2:05pm Advance Directive Response Recorded Date/ Time Advance Directives Yes July 20 2:05pm Do you have a Healthcare Power of Amplifier Mechanic? Yes September 12, 2024 8:48am Name of Medical Power of Amplifier Mechanic Chris Restrepo n September 12, 2024 8:48am Advance Directive Response Recorded Date/ Time Advance Directives Yes September 13 10:03am Do you have a Healthcare Power of Amplifier Mechanic? Yes September 12, 2024 8:48am Name of Medical Power of Amplifier Mechanic Chris Restrepo n September 12, 2024 8:48am Chief Complaint and Reason for Visit Chief Complaint Annual wants to discuss stool testing OSTEO Reason for Visit Vitamin D deficiency GERD (gastroesophageal reflux disease) Hemochromatosis Neuropathy Psoriasis Allergic rhinitis Change in stool Exposure to mold Osteopenia 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 GERD (gastroesophageal reflux disease) Seasonal allergies Chief Complaint wants to discuss sto ol testing OSTEO NEURO Reason for Visit Allergic rhinitis Change in stool Exposure to mold Osteopenia 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 GERD (gastroesophageal reflux disease) Seasonal allergies Chief Complaint NEURO 1 Y FU E ORDER Reason for Visit Exposure to mold Osteopenia 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 Vitamin D deficiency Hemochromatosis Macular degeneration Chief Complaint 6 M FU EORDERS Reason for Visit Ductal carcinoma in situ (DCIS) of breast Osteopenia 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 Visual changes Vitamin D deficiency Neuropathy Vegan diet Chief Complaint 6 M FU EORDERS Urinary tract infection Reason for Visit Ductal carcinoma in situ (DCIS) of breast Osteopenia 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 Visual changes Vitamin D deficiency Neuropathy Vegan diet Urinary tract infection Chief Complaint Annual MURMUR Reason for Visit Aortic stenosis Brain fog Oral allergy syndrome Vitamin D deficiency Arthritis Cataract Glaucoma Hemochromatosis Macular degeneration Osteopenia Chief Complaint Admit Date Annual/Physical June 30, 2024 2:2 2pm Brain fog July 16, 2024 8:04am JUST LEFT FRIEND'S OFFICE July 16, 2024 9:39am Reason for Visit Admit Date Anxiety June 30, 2024 2:2 2pm Brain fog June 30, 2024 2:2 2pm Vitamin D deficiency June 30, 2024 2: 22pm Asthma June 30, 2024 2:2 2pm Hemochromatosis June 30, 2024 2:2 2pm Hemochromatosis July 16, 2024 8:04am Chief Complaint Admit Date Annual/Physical June 30, 2024 2:2 2pm Brain fog July 16, 2024 8:04am JUST LEFT FRIEND'S OFFICE July 16, 2024 9:39am follow up July 30, 2024 8:26a m CONGESTION, SINUS, THROAT BLOCKAGE September 01, 2024 3:41pm Reason for Visit Admit Date Anxiety June 30, 2024 2:2 2pm Brain fog June 30, 2024 2:2 2pm Vitamin D deficiency June 30, 2024 2: 22pm Asthma June 30, 2024 2:2 2pm Hemochromatosis June 30, 2024 2:2 2pm Hemochromatosis July 16, 2024 8:04am Hemochromatosis July 30, 2024 8:26a m Chief Complaint Admit Date Annual/Physical June 30, 2024 2:2 2pm Brain fog July 16, 2024 8:04am JUST LEFT FRIEND'S OFFICE July 16, 2024 9:39am follow up July 30, 2024 8:26a m CONGESTION, SINUS, THROAT BLOCKAGE September 01, 2024 3:41pm WW September 07, 2024 8:57a m left leg September 12, 2024 8:33a m Chief Complaint Admit Date Annual/Physical June 30, 2024 2:2 2pm Brain fog July 16, 2024 8:04am JUST LEFT FRIEND'S OFFICE July 16, 2024 9:39am follow up July 30, 2024 8:26a m CONGESTION, SINUS, THROAT BLOCKAGE September 01, 2024 3:41pm WW September 07, 2024 8:57a m left leg September 12, 2024 8:33a m [facility] ER FU September 15, 2024 9:31a m Reason for Visit Admit Date Anxiety June 30, 2024 2:2 2pm Brain fog June 30, 2024 2:2 2pm Vitamin D deficiency June 30, 2024 2: 22pm Asthma June 30, 2024 2:2 2pm Hemochromatosis June 30, 2024 2:2 2pm Hemochromatosis July 16, 2024 8:04am Hemochromatosis July 30, 2024 8:26a m Left knee pain September 15, 2024 9:31a m Congested nose September 15, 2024 9:31a m Chief Complaint Admit Date Annual/Physical June 30, 2024 2:2 2pm Brain fog July 16, 2024 8:04am JUST LEFT FRIEND'S OFFICE July 16, 2024 9:39am follow up July 30, 2024 8:26a m CONGESTION, SINUS, THROAT BLOCKAGE September 01, 2024 3:41pm [facility] September 07, 2024 8:57a m left leg September 12, 2024 8:33a m [facility] ER FU September 15, 2024 9:31a m CONCERN FOR UTI October 18, 2024 6: 36am Summary Purpose Reason for Referral Specialty Diagnoses / Procedures Referred By Liz lutz Referred To Contact MR IMAGING Diagnoses Impaired memory Forgetfulness Procedures MRI 3D POST PROCESSING 3D RENDERING W/INTERP&POSTPROC DIFF WORK STATION Airam Martinez APRN.CNP [address] [place] [id number] Mr Imaging [id number] Referral ID Status Reason Start Date Expiration Date Visits Requested Visits Authorized [id number] Pending Review Auto-Generat ed Referral 08/15/2023 09/13/2024 1 1 Specialty Diagnoses / Procedures Referred By Liz lutz Referred To Contact MR IMAGING Diagnoses Impaired memory Forgetfulness Procedures MRI BRAIN WO IVCON MRI BRAIN BRAIN STEM W/O CONTRAST MATERIAL Airam Martinez APRN.EQUESTRIAN TRAINER [address] [place] [address] [place] [id number] Referral ID Status Reason Start Date Expiration Date Visits Requested Visits Authorized [id number] Pending Review Auto-Generat ed Referral 08/15/2023 09/13/2024 1 1 Specialty Diagnoses / Procedures Referred By Liz t Referred To Contact Psychology Diagnoses Anxiety about health Procedures CONSULT TO PSYCHOLOGY OFFICE/OUTPATIENT NEW HIGH MDM 60 MINUTES Oli Avery MD [address] [place] [place] [address] Referral ID Status Reason Start Date Expiration Date Visits Requested Visits Authorized [id number] Pending Review PCP Requested Referral 09/25/2023 09/24/2024 1 1 Referral ID Status Reason Start Date Expiration Date V isits Requested Visits Authorized [id number] Closed Auto-Generate d Referral 08/15/2023 09/13/2024 1 1 Referral ID Status Reason Start Date Expiration Date V isits Requested Visits Authorized [id number] Closed Auto-Generate d Referral 08/15/2023 09/13/2024 1 1 Additional Source Comments Goals (unrecognized section and content) Goals may be documented in a n alternate sectionGoals may be documented in an alternate sectionGoals may be documented in an alternate sectionGoals may be documented in an alternate sectionGoals may be documented in an alternate sectionGoals may be documented in an alternate sectionGoals may be documented in an alternate sectionGoals may be documented in an alternate section No data available for this sectionGoals may be documented in an alternate sectionGoals may be documented in an alternate sectionGoals may be documented in an alternate sectionGoals may be documented in an alternate sectionGoals may be documented in an alternate sectionGoals may be documented in an alternate sectionGoals may be documented in an alternate section Source Comments (unrecognize d section and content) In the event this informatio n is protected by the Federal Confidentiality of Alcohol and Drug Abuse Patient Records regulations: The Federal rules restrict any use of the information to criminally investigate or prosecute any alcohol or drug abuse patient.[facility] event this information is protected by the Federal Confidentiality of Alcohol and Drug Abuse Patient Records regulations: The Federal rules restrict any use of the information to criminally investigate or prosecute any alcohol or drug abuse patient.[facility] the event this information is protected by the Federal Confidentiality of Alcohol and Drug Abuse Patient Records regulations: The Federal rules restrict any use of the information to criminally investigate or prosecute any alcohol or drug abuse patient.[facility] the event this information is protected by the Federal Confidentiality of Alcohol and Drug Abuse Patient Records regulations: The Federal rules restrict any use of the information to criminally investigate or prosecute any alcohol or drug abuse patient.[facility] the event this information is protected by the Federal Confidentiality of Alcohol and Drug Abuse Patient Records regulations: The Federal rules restrict any use of the information to criminally investigate or prosecute any alcohol or drug abuse patient.[facility] the event this information is protected by the Federal Confidentiality of Alcohol and Drug Abuse Patient Records regulations: The Federal rules restrict any use of the information to criminally investigate or prosecute any alcohol or drug abuse patient.[facility] the event this information is protected by the Federal Confidentiality of Alcohol and Drug Abuse Patient Records regulations: The Federal rules restrict any use of the information to criminally investigate or prosecute any alcohol or drug abuse patient.[facility] event this information is protected by the Federal Confidentiality of Alcohol and Drug Abuse Patient Records regulations: The Federal rules restrict any use of the information to criminally investigate or prosecute any alcohol or drug abuse patient.[facility] the event this information is protected by the Federal Confidentiality of Alcohol and Drug Abuse Patient Records regulations: The Federal rules restrict any use of the information to criminally investigate or prosecute any alcohol or drug abuse patient.[facility]burgIn the event this information is protected by the Federal Confidentiality of Alcohol and Drug Abuse Patient Records regulations: The Federal rules restrict any use of the information to criminally investigate or prosecute any alcohol or drug abuse patient.[facility]burgIn the event this information is protected by the Federal Confidentiality of Alcohol and Drug Abuse Patient Records regulations: The Federal rules restrict any use of the information to criminally investigate or prosecute any alcohol or drug abuse patient.[facility]burgIn the event this information is protected by the Federal Confidentiality of Alcohol and Drug Abuse Patient Records regulations: The Federal rules restrict any use of the information to criminally investigate or prosecute any alcohol or drug abuse patient.[facility]burgIn the event this information is protected by the Federal Confidentiality of Alcohol and Drug Abuse Patient Records regulations: The Federal rules restrict any use of the information to criminally investigate or prosecute any alcohol or drug abuse patient.[facility]burgIn the event this information is protected by the Federal Confidentiality of Alcohol and Drug Abuse Patient Records regulations: The Federal rules restrict any use of the information to criminally investigate or prosecute any alcohol or drug abuse patient.[facility]burgIn the event this information is protected by the Federal Confidentiality of Alcohol and Drug Abuse Patient Records regulations: The Federal rules restrict any use of the information to criminally investigate or prosecute any alcohol or drug abuse patient.[facility]burgIn the event this information is protected by the Federal Confidentiality of Alcohol and Drug Abuse Patient Records regulations: The Federal rules restrict any use of the information to criminally investigate or prosecute any alcohol or drug abuse patient.[facility]burgIn the event this information is protected by the Federal Confidentiality of Alcohol and Drug Abuse Patient Records regulations: The Federal rules restrict any use of the information to criminally investigate or prosecute any alcohol or drug abuse patient.[facility]burgIn the event this information is protected by the Federal Confidentiality of Alcohol and Drug Abuse Patient Records regulations: The Federal rules restrict any use of the information to criminally investigate or prosecute any alcohol or drug abuse patient.[facility]burgIn the event this information is protected by the Federal Confidentiality of Alcohol and Drug Abuse Patient Records regulations: The Federal rules restrict any use of the information to criminally investigate or prosecute any alcohol or drug abuse patient.[facility]burgIn the event this information is protected by the Federal Confidentiality of Alcohol and Drug Abuse Patient Records regulations: The Federal rules restrict any use of the information to criminally investigate or prosecute any alcohol or drug abuse patient.[facility]burgIn the event this information is protected by the Federal Confidentiality of Alcohol and Drug Abuse Patient Records regulations: The Federal rules restrict any use of the information to criminally investigate or prosecute any alcohol or drug abuse patient.[facility]burgIn the event this information is protected by the Federal Confidentiality of Alcohol and Drug Abuse Patient Records regulations: The Federal rules restrict any use of the information to criminally investigate or prosecute any alcohol or drug abuse patient.[facility]burgIn the event this information is protected by the Federal Confidentiality of Alcohol and Drug Abuse Patient Records regulations: The Federal rules restrict any use of the information to criminally investigate or prosecute any alcohol or drug abuse patient.[facility]burgIn the event this information is protected by the Federal Confidentiality of Alcohol and Drug Abuse Patient Records regulations: The Federal rules restrict any use of the information to criminally investigate or prosecute any alcohol or drug abuse patient.[facility]burgIn the event this information is protected by the Federal Confidentiality of Alcohol and Drug Abuse Patient Records regulations: The Federal rules restrict any use of the information to criminally investigate or prosecute any alcohol or drug abuse patient.[facility]burgIn the event this information is protected by the Federal Confidentiality of Alcohol and Drug Abuse Patient Records regulations: The Federal rules restrict any use of the information to criminally investigate or prosecute any alcohol or drug abuse patient.[facility]burgIn the event this information is protected by the Federal Confidentiality of Alcohol and Drug Abuse Patient Records regulations: The Federal rules restrict any use of the information to criminally investigate or prosecute any alcohol or drug abuse patient.[facility]burgIn the event this information is protected by the Federal Confidentiality of Alcohol and Drug Abuse Patient Records regulations: The Federal rules restrict any use of the information to criminally investigate or prosecute any alcohol or drug abuse patient.[facility]burgIn the event this information is protected by the Federal Confidentiality of Alcohol and Drug Abuse Patient Records regulations: The Federal rules restrict any use of the information to criminally investigate or prosecute any alcohol or drug abuse patient.[facility]burgIn the event this information is protected by the Federal Confidentiality of Alcohol and Drug Abuse Patient Records regulations: The Federal rules restrict any use of the information to criminally investigate or prosecute any alcohol or drug abuse patient.[facility]burgIn the event this information is protected by the Federal Confidentiality of Alcohol and Drug Abuse Patient Records regulations: The Federal rules restrict any use of the information to criminally investigate or prosecute any alcohol or drug abuse patient.[facility]burgIn the event this information is protected by the Federal Confidentiality of Alcohol and Drug Abuse Patient Records regulations: The Federal rules restrict any use of the information to criminally investigate or prosecute any alcohol or drug abuse patient.[facility]burgIn the event this information is protected by the Federal Confidentiality of Alcohol and Drug Abuse Patient Records regulations: The Federal rules restrict any use of the information to criminally investigate or prosecute any alcohol or drug abuse patient.[facility]burgIn the event this information is protected by the Federal Confidentiality of Alcohol and Drug Abuse Patient Records regulations: The Federal rules restrict any use of the information to criminally investigate or prosecute any alcohol or drug abuse patient.[facility]burgIn the event this information is protected by the Federal Confidentiality of Alcohol and Drug Abuse Patient Records regulations: The Federal rules restrict any use of the information to criminally investigate or prosecute any alcohol or drug abuse patient.[facility]burgIn the event this information is protected by the Federal Confidentiality of Alcohol and Drug Abuse Patient Records regulations: The Federal rules restrict any use of the information to criminally investigate or prosecute any alcohol or drug abuse patient.[facility]burgIn the event this information is protected by the Federal Confidentiality of Alcohol and Drug Abuse Patient Records regulations: The Federal rules restrict any use of the information to criminally investigate or prosecute any alcohol or drug abuse patient.[facility]burgIn the event this information is protected by the Federal Confidentiality of Alcohol and Drug Abuse Patient Records regulations: The Federal rules restrict any use of the information to criminally investigate or prosecute any alcohol or drug abuse patient.[facility]burgIn the event this information is protected by the Federal Confidentiality of Alcohol and Drug Abuse Patient Records regulations: The Federal rules restrict any use of the information to criminally investigate or prosecute any alcohol or drug abuse patient.[facility]burgIn the event this information is protected by the Federal Confidentiality of Alcohol and Drug Abuse Patient Records regulations: The Federal rules restrict any use of the information to criminally investigate or prosecute any alcohol or drug abuse patient.[facility]burgIn the event this information is protected by the Federal Confidentiality of Alcohol and Drug Abuse Patient Records regulations: The Federal rules restrict any use of the information to criminally investigate or prosecute any alcohol or drug abuse patient.[facility]burgIn the event this information is protected by the Federal Confidentiality of Alcohol and Drug Abuse Patient Records regulations: The Federal rules restrict any use of the information to criminally investigate or prosecute any alcohol or drug abuse patient.[facility]burgIn the event this information is protected by the Federal Confidentiality of Alcohol and Drug Abuse Patient Records regulations: The Federal rules restrict any use of the information to criminally investigate or prosecute any alcohol or drug abuse patient.[facility]burgIn the event this information is protected by the Federal Confidentiality of Alcohol and Drug Abuse Patient Records regulations: The Federal rules restrict any use of the information to criminally investigate or prosecute any alcohol or drug abuse patient.[facility]burgIn the event this information is protected by the Federal Confidentiality of Alcohol and Drug Abuse Patient Records regulations: The Federal rules restrict any use of the information to criminally investigate or prosecute any alcohol or drug abuse patient.[facility]burgIn the event this information is protected by the Federal Confidentiality of Alcohol and Drug Abuse Patient Records regulations: The Federal rules restrict any use of the information to criminally investigate or prosecute any alcohol or drug abuse patient.[facility]burgIn the event this information is protected by the Federal Confidentiality of Alcohol and Drug Abuse Patient Records regulations: The Federal rules restrict any use of the information to criminally investigate or prosecute any alcohol or drug abuse patient.[facility]burgIn the event this information is protected by the Federal Confidentiality of Alcohol and Drug Abuse Patient Records regulations: The Federal rules restrict any use of the information to criminally investigate or prosecute any alcohol or drug abuse patient.[facility]burgIn the event this information is protected by the Federal Confidentiality of Alcohol and Drug Abuse Patient Records regulations: The Federal rules restrict any use of the information to criminally investigate or prosecute any alcohol or drug abuse patient.[facility]burgIn the event this information is protected by the Federal Confidentiality of Alcohol and Drug Abuse Patient Records regulations: The Federal rules restrict any use of the information to criminally investigate or prosecute any alcohol or drug abuse patient.[facility]burgIn the event this information is protected by the Federal Confidentiality of Alcohol and Drug Abuse Patient Records regulations: The Federal rules restrict any use of the information to criminally investigate or prosecute any alcohol or drug abuse patient.[facility]burgIn the event this information is protected by the Federal Confidentiality of Alcohol and Drug Abuse Patient Records regulations: The Federal rules restrict any use of the information to criminally investigate or prosecute any alcohol or drug abuse patient.[facility]burgIn the event this information is protected by the Federal Confidentiality of Alcohol and Drug Abuse Patient Records regulations: The Federal rules restrict any use of the information to criminally investigate or prosecute any alcohol or drug abuse patient.[facility]burgIn the event this information is protected by the Federal Confidentiality of Alcohol and Drug Abuse Patient Records regulations: The Federal rules restrict any use of the information to criminally investigate or prosecute any alcohol or drug abuse patient.[facility] Reason for Visit (unrecogniz ed section and content) Reason Comments Phlebotomy Specialty Diagnoses / Procedures Referred By Contac t Referred To Contact Hematology / HEMATOLOGY/ONCOLOGY Diagnoses ([id number] ?PHLEBO/LABS 08/14* CBC/CMP/IRON STUDIES/AFP/1YR OV(MASCI) DUE 05/30 Procedures 1 HR TX Luis Ron DO [address] [place] [address] [facility] [address] [place] [address] Referral ID Status Reason Start Date Expiration Date V isits Requested Visits Authorized [id number] Pending Review 11/21/2021 02/19/2022 1 1 Reason Comments Appointment Reason Comments Future Appointment Reason Comments Follow Up Yearly f/u for mammo gram Reason Comments Established Patient Reason Comments Results US Liver Reason Comments Sore Throat Congestion, sinus pa in x6 days Reason Comments Orders Reason Comments Throat Problem Possible allergic re action, dry mouth, scratchy throat x2 days Reason Comments Orders Reason Comments Urinary Frequency burning with urinati on x today, congestion Reason Comments Diarrhea X months, recent atb for UTI, now seeing possible blood in stool Reason Comments Results Reason Comments Radiology US Specialty Diagnoses / Procedures Referred By Contac t Referred To Contact US IMAGING Diagnoses Hereditary hemochromatosis (HCC) Procedures US ABD RT UPPER QUADRANT US ABDOMINAL REAL TIME W/IMAGE LIMITED AsafLuis, DO [address] [place] [address] [place] [id number] Referral ID Status Reason Start Date Expiration Date V isits Requested Visits Authorized [id number] Closed Auto-Generate d Referral 05/22/2022 06/21/2023 1 1 Reason Comments Follow Up 1 year follow up owen ck s/p ductal carcinoma left breast Reason Comments Patient Update Reason Comments Patient Question Reason Comments New Patient Reason Comments New Patient New NI Patient Specialty Diagnoses / Procedures [facility] To Contact Neurology Diagnoses History of CVA (cerebrovascular accident) Procedures CONSULT TO NEUROLOGY OFFICE/OUTPATIENT NEW HIGH MDM 60 MINUTES Airam Martinez APRN.EQUESTRIAN TRAINER [address] [place] [address] Referral ID Status Reason Start Date Expiration Date V isits Requested Visits Authorized [id number] Closed PCP Requested Referral 09/03/2023 09/02/2024 1 1 Reason Comments Pulp Grinder - Other Records request Reason Comments Radiology MRI Specialty Diagnoses / Procedures [facility] Referred To Contact MR IMAGING Diagnoses Impaired memory Forgetfulness Procedures MRI BRAIN WO IVCON MRI BRAIN BRAIN STEM W/O CONTRAST MATERIAL Airam Martinez APRN.EQUESTRIAN TRAINER [address] [place] [address] [place] [id number] Referral ID Status Reason Start Date Expiration Date V isits Requested Visits Authorized [id number] Closed Auto-Generate d Referral 08/15/2023 09/13/2024 1 1 Reason Comments Established Patient Follow-Up Reason Comments New Patient Brain fog Specialty Diagnoses / Procedures Referred By Contac t Referred To Contact Diagnoses Functional gastrointestinal disorder Procedures CONSULT TO FUNCTIONAL MEDICINE OFFICE/OUTPATIENT NEW HIGH [facility] 60 MINUTES Oli Avery MD [address] [id number] Phone: tel: fax: Referral ID Status Reason Start Date Expiration Date V isits Requested Visits Authorized [id number] Closed PCP Requested Referral 04/19/2024 04/19/2025 1 1 Reason Comments 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 Reason Comments Established Patient Care Teams (unrecognized sec tion and content) Exhibition Carver Relationship Specialty Start Date End Date Katarina Medina MD PCP - General Internal Medicine 11/17/19 Meryl Jansen MD, [address] [place] [address] Physician Radiation Oncology 04/13/18 Mandi Momin RN Specialty Pulp Grinder Oncology 08/19/19 Exhibition Carver Relationship Specialty Start Date End Date Katarina Medina MD PCP - General Internal Medicine 11/17/19 Meryl Jansen MD, [address] [place] [address] Physician Radiation Oncology 04/13/18 Mandi Momin RN Specialty Pulp Grinder Oncology 08/19/19 Exhibition Carver Relationship Specialty Start Date End Date Katarina Medina MD PCP - General Internal Medicine 11/17/19 Meryl Jansen MD, [address] [place] [address] Physician Radiation Oncology 04/13/18 Mandi Momin RN Specialty Pulp Grinder Oncology 08/19/19 Exhibition Carver Relationship Specialty Start Date End Date Katarina Medina MD PCP - General Internal Medicine 11/17/19 Meryl Jansen MD, [address] [place] [address] Physician Radiation Oncology 04/13/18 Mandi Momin RN Specialty Pulp Grinder Oncology 08/19/19 Exhibition Carver Relationship Specialty Start Date End Date Katarina Medina MD PCP - General Internal Medicine 11/17/19 Meryl Jansen MD, [address] [place] [address] Physician Radiation Oncology 04/13/18 Mandi Momin RN Specialty Pulp Grinder Oncology 08/19/19 Exhibition Carver Relationship Specialty Start Date End Date Katarina Medina MD PCP - General Internal Medicine 11/17/19 Meryl Jansen MD, [address] [place] [address] Physician Radiation Oncology 04/13/18 Mandi Momin RN Specialty Pulp Grinder Oncology 08/19/19 Exhibition Carver Relationship Specialty Start Date End Date Katarina Medina MD PCP - General Internal Medicine 11/17/19 Meryl Jansen MD, [address] [place] [address] Physician Radiation Oncology 04/13/18 Mandi Momin RN Specialty Pulp Grinder Oncology 08/19/19 Exhibition Carver Relationship Specialty Start Date End Date Katarina Medina MD PCP - General Internal Medicine 11/17/19 Meryl Jansen MD, [address] [place] [address] Physician Radiation Oncology 04/13/18 Mandi Momin RN Specialty Pulp Grinder Oncology 08/19/19 Exhibition Carver Relationship Specialty Start Date End Date Katarina Medina MD PCP - General Internal Medicine 11/17/19 Meryl Jansen MD, [address] [place] [address] Physician Radiation Oncology 04/13/18 Mandi Momin RN Specialty Pulp Grinder Oncology 08/19/19 Exhibition Carver Relationship Specialty Start Date End Date Katarina Medina MD PCP - General Internal Medicine 11/17/19 Meryl Jansen MD, [address] [place] [address] Physician Radiation Oncology 04/13/18 Mandi Momin RN Specialty Pulp Grinder Oncology 08/19/19 Exhibition Carver Relationship Specialty Start Date End Date Katarina Medina MD PCP - General Internal Medicine 11/17/19 Meryl Jansen MD, [address] [place] [address] Physician Radiation Oncology 04/13/18 Mandi Momin RN Specialty Pulp Grinder Oncology 08/19/19 Exhibition Carver Relationship Specialty Start Date End Date Katarina Medina MD PCP - General Internal Medicine 11/17/19 Meryl Jansen MD, [address] [place] [address] Physician Radiation Oncology 04/13/18 Mandi Momin RN Specialty Pulp Grinder Oncology 08/19/19 Exhibition Carver Relationship Specialty Start Date End Date Katarina Medina MD PCP - General Internal Medicine 11/17/19 Meryl Jansen MD, [address] [place] [address] Physician Radiation Oncology 04/13/18 Mandi Momin RN Specialty Pulp Grinder Oncology 08/19/19 Exhibition Carver Relationship Specialty Start Date End Date Katarina Medina MD PCP - General Internal Medicine 11/17/19 Meryl Jansen MD, [address] [place] [address] Physician Radiation Oncology 04/13/18 Mandi Momin RN Specialty Pulp Grinder Oncology 08/19/19 Exhibition Carver Relationship Specialty Start Date End Date Katarina Medina MD PCP - General Internal Medicine 11/17/19 Meryl Jansen MD, [address] [place] [address] Physician Radiation Oncology 04/13/18 Mandi Momin RN Specialty Pulp Grinder Oncology 08/19/19 Exhibition Carver Relationship Specialty Start Date End Date Katarina Medina MD PCP - General Internal Medicine 11/17/19 Meryl Jansen MD, [address] [facility] [place] [address] Physician Radiation Oncology 04/13/18 Mandi Momin RN Specialty Pulp Grinder Oncology 08/19/19 Team Status: Active Member Role Status Dates Dr. Becka Dewey MD Family Provider Active Dr. Katarina Medina MD Primary Care Provider Active Team Status: Inactive Member Role Status Dates Dr. Katarina Medina MD Primary Care Provider, Attendi ng Provider Active Team Status: Inactive Member Role Status Dates Dr. Katarina Medina MD Primary Care Provider Active RAHEL TROY Attending Provider, Referring Provider Ac tive Team Status: Inactive Member Role Status Dates Dr. Katarina Medina MD Primary Care Pro vider, Attending Provider, Referring Provider Active Team Status: Inactive Member Role Status Dates Dr. Katarina Medina MD Primary Care Provider, Referri ng Provider Active Moose REED PA Attending Provider Active Team Status: Inactive Member Role Status Dates Dr. Katarina Medina MD Primary Care Provider Active Moose REED PA Attending Provider, Referring Pr ovider Active Exhibition Carver Relationship Specialty Start Date End Date Katarina Medina MD PCP - General Internal Medicine 11/17/19 Meryl Jansen MD, [address] [place], [place] [address] Physician Radiation Oncology 04/13/18 Mandi Momin RN Specialty Pulp Grinder Oncology 08/19/19 Exhibition Carver Relationship Specialty Start Date End Date Katarina Medina MD PCP - General Internal Medicine 11/17/19 Meryl Jansen MD [address] [place] [address] Physician Radiation Oncology 04/13/18 Mandi Momin RN Specialty Pulp Grinder Oncology 08/19/19 Exhibition Carver Relationship Specialty Start Date End Date Katarina Medina MD PCP - General Internal Medicine 11/17/19 Meryl Jansen MD [address] [facility] [place] [address] Physician Radiation Oncology 04/13/18 Mandi Momin RN Specialty Pulp Grinder Oncology 08/19/19 Team Status: Active Member Role Status Dates Dr. Katarina Medina MD Primary Care Provider, Referri ng Provider Active Dr. Seamus Turk MD Attending Provider Active Team Status: Active Member Role Status Dates Dr. Katarina Medina MD Primary Care Provider Active Dr. Laurence Billingsley MD Attending Provider Activ e Exhibition Carver Relationship Specialty Start Date End Date Katarina Medina MD PCP - General Internal Medicine 11/17/19 Meryl Jansen MD [address] [facility] [place] [place] [address] Physician Radiation Oncology 04/13/18 Mandi Momin RN Specialty Pulp Grinder Oncology 08/19/19 Exhibition Carver Relationship Specialty Start Date End Date Katarina Medina MD PCP - General Internal Medicine 11/17/19 Meryl Jansen MD [address] [place] [address] Physician Radiation Oncology 04/13/18 Mandi Momin RN Specialty Pulp Grinder Oncology 08/19/19 Exhibition Carver Relationship Specialty Start Date End Date Katarina Medina MD PCP - General Internal Medicine 11/17/19 Meryl Jansen MD [address] [place] [address] Physician Radiation Oncology 04/13/18 Mandi Momin RN Specialty Pulp Grinder Oncology 08/19/19 Exhibition Carver Relationship Specialty Start Date End Date Katarina Medina MD PCP - General Internal Medicine 11/17/19 Meryl Jansen MD [address] [place] [address] Physician Radiation Oncology 04/13/18 Mandi Momin RN Specialty Pulp Grinder Oncology 08/19/19 Exhibition Carver Relationship Specialty Start Date End Date Katarina Medina MD PCP - General Internal Medicine 11/17/19 Meryl Jansen MD [address] [facility] [place] [address] Physician Radiation Oncology 04/13/18 Mandi Momin RN Specialty Pulp Grinder Oncology 08/19/19 Exhibition Carver Relationship Specialty Start Date End Date Katarina Medina MD PCP - General Internal Medicine 11/17/19 Meryl Jansen MD [address] [facility] [place] [address] Physician Radiation Oncology 04/13/18 Mandi Momin, RN Specialty Pulp Grinder Oncology 08/19/19 Exhibition Carver Relationship Specialty Start Date End Date Katarina Medina MD PCP - General Internal Medicine 11/17/19 Meryl Jansen MD [address] [facility] [place] [address] Physician Radiation Oncology 04/13/18 Mandi Momin RN Specialty Pulp Grinder Oncology 08/19/19 Doc Gold MD [address] [place] [address] Ophthalmology 11/11/23 Aditya Chan [address] [place] [address] Ophthalmology 11/11/23 Rohnda Wasserman [address] [facility] [address] [place] [phone] Internal Medicine 11/11/23 Олег Kennedy MD [address] [place] [address] Allergy 11/11/23 Exhibition Carver Relationship Specialty Start Date End Date Katarina Medina MD PCP - General Internal Medicine 11/17/19 Meryl Jansen MD [address] [facility] [place] [address] Physician Radiation Oncology 04/13/18 Mandi Momin RN Specialty Pulp Grinder Oncology 08/19/19 Doc Gold MD [address] [place] [address] Ophthalmology 11/11/23 Aditya Chan [address] [place] [address] Ophthalmology 11/11/23 Rhonda Wasserman [address] [facility] [address] [place] [phone] Internal Medicine 11/11/23 Олег Kennedy MD [address] [facility] [address] [place] [address] Allergy 11/11/23 Exhibition Carver Relationship Specialty Start Date End Date Katarina Medina MD PCP - General Internal Medicine 11/17/19 Meryl Jansen MD [address] [place] [address] Physician Radiation Oncology 04/13/18 Mandi Momin RN Specialty Pulp Grinder Oncology 08/19/19 Exhibition Carver Relationship Specialty Start Date End Date Katarina Medina MD PCP - General Internal Medicine 11/17/19 Meryl Jansen MD [address] [place] [address] Physician Radiation Oncology 04/13/18 Mandi Momin RN Specialty Pulp Grinder Oncology 08/19/19 Doc Gold MD [address] [place] [address] Ophthalmology 11/11/23 Aditya Chan [address] [place] [address] Ophthalmology 11/11/23 Rhonda Wasserman [address] [place] [phone] Internal Medicine 11/11/23 Олег Kennedy MD [address] [place] [address] Allergy 11/11/23 Exhibition Carver Relationship Specialty Start Date End Date Katarina Medina MD PCP - General Internal Medicine 11/17/19 Meryl Jansen MD [address] [place] [address] Physician Radiation Oncology 04/13/18 Mandi Momin RN Specialty Pulp Grinder Oncology 08/19/19 Doc Gold MD [address] [place] [address] Ophthalmology 11/11/23 Aditya Chan [address] [place] [address] Ophthalmology 11/11/23 Rhonda Wasserman [address] [place] [address] Internal Medicine 11/11/23 Олег Kennedy MD [address] [address] Allergy 11/11/23 Exhibition Carver Relationship Specialty Start Date End Date Katarina Medina MD PCP - General Internal Medicine 11/17/19 Meryl Jansen MD [address] [place] [address] Physician Radiation Oncology 04/13/18 Mandi Momin RN Specialty Pulp Grinder Oncology 08/19/19 Doc Gold MD [address] [place] [address] Ophthalmology 11/11/23 Aditya Chan [address] [place] [address] Ophthalmology 11/11/23 Rhonda Wasserman [address] [phone] Internal Medicine 11/11/23 Олег Kennedy MD [address] [address] Allergy 11/11/23 Exhibition Carver Relationship Specialty Start Date End Date Katarina Medina MD PCP - General Internal Medicine 11/17/19 Meryl Jansen MD [address] [place] [address] Physician Radiation Oncology 04/13/18 Mandi Momin, RN Specialty Pulp Grinder Oncology 08/19/19 Doc Gold MD [address] [place] [address] Ophthalmology 11/11/23 Aditya Chan [address] [place] [address] Ophthalmology 11/11/23 Rhonda Wasserman [address] [place] [phone] Internal Medicine 11/11/23 Олег Kennedy MD [address] [facility] [address] [place] [address] Allergy 11/11/23 Exhibition Carver Relationship Specialty Start Date End Date Katarina Medina MD PCP - General Internal Medicine 11/17/19 Meryl Jansen MD [address] [facility] [place] [address] Physician Radiation Oncology 04/13/18 Mandi Momin, RN Specialty Pulp Grinder Oncology 08/19/19 Doc Gold MD [address] [place] [address] Ophthalmology 11/11/23 Aditya Chan [address] [place] [address] Ophthalmology 11/11/23 Rhonda Wasserman [address] [phone] Internal Medicine 11/11/23 Олег Kennedy MD [address] [facility] [address] [place] [address] Allergy 11/11/23 Exhibition Carver Relationship Specialty Start Date End Date Katarina Medina MD PCP - General Internal Medicine 11/17/19 Meryl Jansen MD [address] [place] [address] Physician Radiation Oncology 04/13/18 Mandi Momin, MARISELA Specialty Pulp Grinder Oncology 08/19/19 Doc Gold MD [address] [place] [address] Ophthalmology 11/11/23 Aditya Chan [address] [place] [address] Ophthalmology 11/11/23 Rhonda Wasserman [address] [phone] Internal Medicine 11/11/23 Олег Kennedy MD [address] [place] [address] Allergy 11/11/23 Exhibition Carver Relationship Specialty Start Date End Date Katarina Medina MD PCP - General Internal Medicine 11/17/19 Meryl Jansen MD [address] [place] [address] Physician Radiation Oncology 04/13/18 Mandi Momin RN Specialty Pulp Grinder Oncology 08/19/19 Doc Gold MD [address] [place], [place] [address] Ophthalmology 11/11/23 Aditya Chan [address] [place] [address] Ophthalmology 11/11/23 Rhonda Wasserman [address] [place] [address] Internal Medicine 11/11/23 Олег Kennedy MD [address] [place] [address] Allergy 11/11/23 Team Status: Inactive Member Role Status Dates Dr. Katarina Medina MD Primary Care Provider Active Start: June 30, 2024 End: June 30, 2024 Dr. Katarina Medina MD Attending Provider Active Start: June 30, 2024 End: June 30, 2024 Team Status: Inactive Member Role Status Dates Dr. Katarina Medina MD Primary Care Provider Active Start: July 16, 2024 End: July 16, 2024 Dr. Katarina Medina MD Referring Provider Active Start: July 16, 2024 End: July 16, 2024 Dr. Pascual Fletcher DO Attending Provider Active Start: July 16, 2024 End: July 16, 2024 Team Status: Inactive Member Role Status Dates Dr. Katarina Medina MD Primary Care Provider Active Start: July 16, 2024 End: July 16, 2024 Dr. Pascual Fletcher DO Attending Provider Active Start: July 16, 2024 End: July 16, 2024 Dr. Pascual Fletcher DO Referring Provider Active Start: July 16, 2024 End: July 16, 2024 Team Status: Active Member Role Status Dates Dr. Katarina Medina MD Primary Care Provider Active Team Status: Inactive Member Role Status Dates Dr. Katarina Medina MD Primary Care Provider Active Start: July 30, 2024 End: July 30, 2024 Dr. Katarina Medina MD Referring Provider Active Start: July 30, 2024 End: July 30, 2024 Dr. Pascual Fletcher DO Attending Provider Active Start: July 30, 2024 End: July 30, 2024 Team Status: Inactive Member Role Status Dates Dr. Katarina Medina MD Primary Care Provider Active Start: September 01, 2024 End: September 01, 2024 Dr. Katarina Medina MD Referring Provider Active Start: September 01, 2024 End: September 01, 2024 Moose Lawrence PA, PA Attending Provider Active Start: September 01, 2024 End: September 01, 2024 Team Status: Active Member Role/Relationship Status Dates Dr. Katarina Medina MD Primary Care Provider Active Team Status: Inactive Member Role/Relationship Status Dates Dr. Katarina Medina MD Primary Care Provider Active Start: June 30, 2024 End: June 30, 2024 Dr. Katarina Medina MD Attending Provider Active Start: June 30, 2024 End: June 30, 2024 Team Status: Inactive Member Role/Relationship Status Dates Dr. Katarina Medina MD Primary Care Provider Active Start: July 16, 2024 End: July 16, 2024 Dr. Katarina Medina MD Referring Provider Active Start: July 16, 2024 End: July 16, 2024 Dr. Pascual Fletcher DO Attending Provider Active Start: July 16, 2024 End: July 16, 2024 Team Status: Inactive Member Role/Relationship Status Dates Dr. Katarina Medina MD Primary Care Provider Active Start: July 16, 2024 End: July 16, 2024 Dr. Pascual Fletcher DO Attending Provider Active Start: July 16, 2024 End: July 16, 2024 Dr. Pascual Fletcher DO Referring Provider Active Start: July 16, 2024 End: July 16, 2024 Team Status: Inactive Member Role/Relationship Status Dates Dr. Katarina Medina MD Primary Care Provider Active Start: July 30, 2024 End: July 30, 2024 Dr. Katarina Medina MD Referring Provider Active Start: July 30, 2024 End: July 30, 2024 Dr. Pascual Fletcher DO Attending Provider Active Start: July 30, 2024 End: July 30, 2024 Team Status: Inactive Member Role/Relationship Status Dates Dr. Katarina Medina MD Primary Care Provider Active Start: September 01, 2024 End: September 01, 2024 Dr. Katarina Medina MD Referring Provider Active Start: September 01, 2024 End: September 01, 2024 Moose REED, PA Attending Provider Active Start: September 01, 2024 End: September 01, 2024 Team Status: Active Member Role/Relationship Status Dates Dr. Katarina Medina MD Primary Care Provider Active Start: September 07, 2024 Dr. Pascual Fletcher DO Attending Provider Active Start: September 07, 2024 Dr. Pascual Fletcher DO Referring Provider Active Start: September 07, 2024 Team Status: Inactive Member Role/Relationship Status Dates Dr. Katarina Medina MD Primary Care Provider Active Start: September 12, 2024 End: September 12, 2024 Dr. Nathanael Bowers DO Emergency Provider Activ e Start: September 12, 2024 End: September 12, 2024 Team Status: Inactive Member Role/Relationship Status Dates Dr. Katarina Medina MD Primary Care Provider Active Start: September 15, 2024 End: September 15, 2024 Dr. Katarina Medina MD Attending Provider Active Start: September 15, 2024 End: September 15, 2024 Team Status: Inactive Member Role/Relationship Status Dates Dr. Katarina Medina MD Primary Care Provider Active Start: September 07, 2024 End: October 07, 2024 Dr. Pascual Fletcher DO Attending Provider Active Start: September 07, 2024 End: October 07, 2024 Dr. Pascual Fletcher DO Referring Provider Active Start: September 07, 2024 End: October 07, 2024 Team Status: Inactive Member Role/Relationship Status Dates Dr. Katarina Medina MD Primary Care Provider Active Start: September 12, 2024 End: September 12, 2024 Dr. Nathanael Bowers DO Attending Provider Activ e Start: September 12, 2024 End: September 12, 2024 Dr. Nathanael Bowers DO Emergency Provider Activ e Start: September 12, 2024 End: September 12, 2024 Exhibition Carver Relationship Specialty Start Date End Date Katarina Medina MD PCP - General Internal Medicine 11/17/19 Meryl Jansen MD [address] [place] [address] Physician Radiation Oncology 04/13/18 Mandi Momin, MARISELA Specialty Pulp Grinder Oncology 08/19/19 Doc Gold MD [address] [place] [address] Ophthalmology 11/11/23 Aditya Chan [address] [place] [address] Ophthalmology 11/11/23 Rhonda Wasserman [address] [facility] [address] [facility] [address] [place] [phone] Internal Medicine 11/11/23 Олег Kennedy MD [address] [facility] [address] [place] [address] Allergy 11/11/23 Exhibition Carver Relationship Specialty Start Date End Date Katarina Medina MD PCP - General Internal Medicine 11/17/19 Meryl Jansen MD [address] [place] [address] Physician Radiation Oncology 04/13/18 Mandi Momin RN Specialty Pulp Grinder Oncology 08/19/19 Doc Gold MD [address] [place] [address] Ophthalmology 11/11/23 Aditya Chan [address] [place] [address] Ophthalmology 11/11/23 Rhonda Wasserman [address] [facility] [address] [place] [address] Internal Medicine 11/11/23 Олег Kennedy MD [address] [facility] [address] [place] [address] Allergy 11/11/23 Team Status: Inactive Member Role/Relationship Status Dates Dr. Katarina Medina MD Primary Care Provider Active Start: October 18, 2024 End: October 18, 2024 Dr. Katarina Medina MD Referring Provider Active Start: October 18, 2024 End: October 18, 2024 Moose REED, PA Attending Provider Active Start: October 18, 2024 End: October 18, 2024 Team Status: Inactive Member Role/Relationship Status Dates Dr. Katarina Medina MD Primary Care Provider Active Start: October 18, 2024 End: October 18, 2024 Moose REED PA Attending Provider Active Start: October 18, 2024 End: October 18, 2024 INFORMATION SOURCE (unrecogn ized section and content) DATE CREATED AUTHOR 10/30/2022 [facility] DATE CREATED AUTHOR AUTHOR'S ORGANIZ ATION 03/29/2024 [facility] DATE CREATED AUTHOR AUTHOR'S ORGANIZ ATION 10/15/2024 [facility] DATE CREATED AUTHOR AUTHOR'S ORGANIZ ATION 10/23/2024 [facility] FOR RECORDS PERTAINING TO PATIENTS WHO ARE OR HAVE BEEN ENROLLED IN A CHEMICAL DEPENDENCY/SUBSTANCEABUSE PROGRAM, SOME INFORMATION MAY BE OMITTED. This clinical summary was aggregated from multiple sources. Caution should be exercised in using it in the provision of clinical care. This summary normalizes information from multiple sources, and as a consequence, information in this document may materially change the coding, format and clinical context of patient data. In addition, data may be omitted in some cases. CLINICAL DECISIONS SHOULD BE BASED ON THE PRIMARY CLINICAL RECORDS. [facility] [employer] provides no warranty or guarantee of the accuracy or completeness of information in this document.
[2024-12-01 19:25] VITALS: PULSE 60
[2024-12-01 19:26] VITALS: BP 171/57; PULSE 63; RESP 18; O2SAT 98
[2024-12-01 19:30] VITALS: PULSE 59; RESP 12; O2SAT 99
[2024-12-01 20:03] VITALS: BP 161/90; PULSE 81; RESP 16; TEMP 36.6; O2SAT 98
== END 2024-12-01 20:03 | disposition home or self-care (01) ==
PROVIDERS: Emergency Provider Emergency Medicine; PCP Internal Medicine; Visit Provider Emergency Medicine
DX: R07.9 Chest pain, unspecified (principal); R00.2 Palpitations; H40.9 Unspecified glaucoma; H35.30 Unspecified macular degeneration; Z79.899 Other long term (current) drug therapy
CPT/HCPCS: 71045; 80048; 84484; 85025; 93005; 99284; A4216

== ENCOUNTER 2025-01-13 19:07 | Emergency (ER) | payer MEDICARE, SELFPAY ==
[2025-01-13 19:08] VITALS: BP 177/59; PULSE 80; RESP 16; TEMP 36.6; O2SAT 100; BMI 25.8
--- NOTE | 2025-01-13 19:24 | US_ITS ---
PROCEDURE: VENOUS DUPLEX IMAG/LIMITED/UNI 01/13/2025 REASON FOR EXAM: F 79 y/o TECHNIQUE: Procedure Code: USVDUL Modality: US Procedure: VENOUS DUPLEX IMAG/LIMITED/UNI FINDINGS: There is no intraluminal echogenicity to suggest the presence of a deep venous thrombosis. Appropriate respiratory variation, augmentation and venous compression is noted. A Remy's cyst is noted within the left knee, measuring 1.8 x 0.8 x 1.6 cm. US/Venous Duplex Imag/Limited/Uni IMPRESSION: No DVT within the left lower extremity. Reading Location: [id number]
--- OUTSIDE RECORDS SUMMARY | 2025-01-13 19:30 | XMS RPT_ITS | CCD ---
Author Organization [facility] Care Team Providers Care Certified Performance Technologist Name Role Phone Dr. Katarina Medina Primary [...] Provider Dr. Katarina Medina Referring Provider [phone] DEREK Calvert Attending Provider Inderjit DE AL ROSA, Meryl Unavailable Dr. Katarina Medina Primary Care Provider Dr. Katarina Medina Attending Provider [phone] Laurence Billingsley Attending Provider Dr. Katarina Medina Referring Provider [phone] Seamus Turk Attending Provider Katarina Medina MD Primary Care Provider Jaiden Real MD, Doc Unavailable Aditya Chan Unavailable Rhonda Wasserman Unavailable Brent DE LA ROSA, Олег Randhawa Unavailable CHANDA DE LA ROSA, JOSHUA Das Primary Care Physician CHANDA DE LA ROSA, JOSHUA Das Primary Care Unavail able SHEILA CHAN MD Attending Unavail able Dr. Katarina Medina MD Primary Care Provider [phone] Dr. Katarina Medina MD Attending Provider Dr. Katarina Medina MD Referring Provider Dr. Pascual Fletcher DO Attending Provider Dr. Pascual Fletcher DO Referring Provider Moose Calvert Attending Provider Dr. Nathanael Bowers DO Emergency [facility] Dr[facility] Huffman Attending Provider Adam DE LA ROSA, Dr. Payne Primary Care Physician Adam DE LA ROSA, Dr. Payne Referring Provider Moose Calvert Attending Physician Chance DO, Dr. Garner Attending Physician Chance DO, Dr. Garner [facility]erring [facility] Dr[facility] Huffman [facility]ending [facility] Adam DE LA ROSA, Dr. Payne Attending Physician Zoe DE LA ROSA, [place] Attending Physician Zoe DE LA ROSA, [place] Emergency Department Physician Adam, Katarina Primary Care Unavailable Adam, Katarina Attending Unavailable Adam, Katarina Primary Care Unavailable Adam, Katarina Attending Unavailable Adam, Katarina Attending Unavailable Adam, Katarina Primary Care Unavailable Friend, Pascual Referring Unavailable Friend, Pascual Attending Unavailable Adam, Katarina Primary Care Unavailable Nathanael Bowers Attending Unavailabl e Adam, Katarina Primary Care Unavailable [place] Enriquez Attending Unavailable Adam, Katarina Primary Care Unavailable Moose Calvert Attending Unavailable Adam, Katarina Primary Care Unavailable Adam, Katarina Primary Care Unavailable Friend, Pascual Attending Unavailable Friend, Pascual Referring Unavailable Adam, Katarina Primary Care Unavailable Friend, Pascual Attending Unavailable Friend, Pascual Referring Unavailable Moose Calvert Attending Unavailable Adam, Katarina Referring Unavailable Adam, Katarina Primary Care Unavailable Adam, Katarina Attending Unavailable Adam, Katarina Primary Care Unavailable Adam, Katarina Primary Care Unavailable Moose Calvert Attending Unavailable Adam, Katarina Referring Unavailable Adam, Katarina Primary Care Unavailable Friend, Pascual Attending Unavailable Adam, Katarina Referring Unavailable Adam, Katarina Primary Care Unavailable Friend, Pascual Attending Unavailable Katarina Medina Referring Unavailable ADAM, KATARINA M Primary Care Unavailable ADAM, KATARINA M Primary Care Unavailable ADAM, KATARINA M Primary Care Unavailable MASCILUIS Attending Unavailable ADAM, KATARINA M Primary Care Unavailable MASCI, LUIS A Referring Unavailable ADAM, KATARINA M Primary Care Unavailable ADAM, KATARINA M Primary Care Unavailable MASCI, LUIS A Referring Unavailable ADAM, KATARINA M Primary Care Unavailable ADAM, KATARINA M Primary Care Unavailable ADAM, KATARINA M Primary Care Unavailable MASCILUIS Referring Unavailable OLI AVERY Referring Unavailable ADAM, KATARINA M Primary Care Unavailable AIRAM ALVARADO Attending Unavailable ADAM, KATARINA M Primary Care Unavailable ADELAIDAIKNA, OLI Attending Unavailable MASCLyn, LUIS A Referring Unavailable ADAM, KATARINA M Primary Care Unavailable ADAM, KATARINA M Primary Care Unavailable ADAM, KATARINA M Primary Care Unavailable MASCILUIS A Referring Unavailable ADAM, KATARINA M Primary Care Unavailable ADAM, KATARINA M Primary Care Unavailable ADITYA CHAN Referring Unavailable JACQUELINE GRIFFITHS [facility]ending [facility] ADAM, KATARINA M Primary Care Unavailable ADAM, KATARINA M Primary Care Unavailable MASCI, LUIS A Referring Unavailable Allergies Allergy Classification Reported Allergen(s) Allergy Type Date of Onset Reaction(s) Facility (20 sources) Amoxicillin; Translations: [AMOXICILLIN] Drug Allergy 11-23-19 05 Intolerance [facility] Work Phone: (20 sources) Aspirin; Translations: [ASPIRIN] Drug Allergy 07-14-19 09 unknown [facility] (20 sources) Calcium Carbonate; Translations: [calcium carbonate] Drug Allergy 01-11-20 09 unknown, Other [facility] Comment on above: skin reaction (20 sources) Estradiol; Translations: [ESTRADIOL] Drug Allergy 04-19-19 06 unknown [facility] Work Phone: (20 sources) Ibuprofen; Translations: [IBUPROFEN] Drug Allergy 11-23-19 05 Intolerance [facility] (16 sources) Indomethacin Drug Allergy 05-29-19 [address] [facility] (20 sources) Indomethacin; Translations: [indomethacin sodium] Drug Allergy 11-23-19 05 Intolerance [facility] Work Phone: (20 sources) latanoprost; Translations: [LATANOPROST] Drug Allergy 04-19-19 06 Shortness of Breath [facility] Work Phone: (20 sources) Miconazole; Translations: [MICONAZOLE] Drug Allergy 02-05-20 05 Intolerance [facility] Work Phone: (20 sources) prednisoLONE; Translations: [PREDNISOLONE] Drug Allergy 02-16-20 14 Swelling [facility] (20 sources) predniSONE; Translations: [PREDNISONE] Drug Allergy 11-23-19 05 Other [facility] Work Phone: (20 sources) Progesterone; Translations: [PROGESTERONE] Drug Allergy 11-23-19 05 Other [facility] Work Phone: (20 sources) Propoxyphene; Translations: [propoxyphene HCl] Drug Allergy 11-23-19 05 Mental Status Change [facility] Work Phone: (16 sources) raNITIdine Drug Allergy 05-29-[address] [facility] (20 sources) Sulfonamides (Antibiotic); Translations: [Sulfa (Sulfonamide Antibiotics)] Allergy to substance 11-23-19 05 Anaphylaxis [facility] Work Phone: (20 sources) tioconazole; Translations: [TIOCONAZOLE] Drug Allergy 11-23-19 05 burning, headache, nausea [facility] Work Phone: [phone] (17 sources) skin cleanser combination no.17; Translations: [skin cleanser combination no.17] Allergy to substance 05-29-19 22 burining, headache, nausea [facility] (17 sources) nitrofurantoin macrocrystalline; Translations: [nitrofurantoin macrocrystalline] Propensity to adverse reactions 05-29-[address] [facility] (2 sources) BARIUM DRINK Propensity to adverse reactions 12-06-[address] [facility] Work Phone: [phone] (2 sources) MONOSTAT Propensity to adverse reactions 12-06-[address] [facility] Work Phone: [phone] (5 sources) PSORIASIS LOTION Propensity to adverse reactions 12-06-[address] [facility] Work Phone: (20 sources) Nitrofurantoin; Translations: [NITROFURANTOIN] Drug Allergy 11-23-19 05 [facility] Work Phone: [phone] (20 sources) Phenazopyridine; Translations: [PHENAZOPYRIDINE HCL] Drug Allergy 12-25-19 05 Intolerance [facility] Work Phone: [phone] (20 sources) raNITIdine; Translations: [RANITIDINE HCL] Drug Allergy 03-25-19 08 [facility] Work Phone: [phone] (20 sources) Barium Iodide; Translations: [BARIUM IODIDE] Propensity to adverse reactions 11-23-19 05 Rash [facility] Work Phone: [phone] (20 sources) psoriosis lotion [Other] Propensity to adverse reactions 11-23-19 05 [facility] Work Phone: (20 sources) Barium Sulfate; Translations: [BARIUM SULFATE] Drug Allergy 11-01-[address] [facility] (20 sources) sunflower seed extract; Translations: [SUNFLOWER SEED] Drug Allergy 12-22-19 23 [facility] (20 sources) Tree and shrub pollen; Translations: [TREE AND SHRUB POLLEN] Drug Allergy 01-15-20 Other: See Comments [facility] (10 sources) Phenazopyridine Drug Allergy 01-26-[address] [facility] Comment on above: intolerance (10 sources) Propoxyphene Drug Allergy 01-26-[address] [facility] Comment on above: mental status change blacked out with postural changes (1 source) Amoxicillin Drug Allergy 12-28-[address] [facility] Repository (1 source) Aspirin Drug Allergy 12-28-[address] [facility] Repository (1 source) Barium sulfate Drug allergy (disorder) 12-28-[address] [facility] Repository (1 source) Estradiol Drug Allergy 12-28-[address] [facility] (1 source) Ibuprofen Drug Allergy 12-28-[address] [facility] (1 source) Indomethacin Drug Allergy 12-28-[address] [facility] Rep[facility] (1 source) latanoprost Drug Allergy 12-28-[address] [facility] Rep[facility] (1 source) Miconazole Drug Allergy 12-28-[address] [facility] Rep[facility] (1 source) Phenazopyridine Drug Allergy 12-28-[address] [facility] Rep[facility] (1 source) prednisoLONE Drug Allergy 12-28-[address] [facility] Rep[facility] (1 source) predniSONE Drug Allergy 12-28-[address] [facility] (1 source) Progesterone Drug Allergy 12-28-[address] [facility] (1 source) Propoxyphene Drug Allergy 12-28-[address] [facility] Rep[facility] (1 source) raNITIdine Drug Allergy 12-28-[address] [facility] Rep[facility] (1 source) tioconazole Drug Allergy 12-28-[address] [facility] Repository (1 source) OTHER; Translations: [OTHER] Propensity to adverse reactions (disorder) 11-23-19 [facility] Repository Medications Current Medications Medication Drug Class(es) Dates Sig (Normalized) Sig (Original) azithromycin 250 mg oral tablet (13 sources) Macrolide Antimicrobial Start: 09-01-2024 End: 09-07-2024 Bacillus coagulans / Inulin (20 sources) take 1 capsule by mouth once daily Bacillus coagulans/inulin (PROBIOTIC WITH PREBIOTIC ORAL) Take 1 capsule by mouth once daily. Active take 1 capsule by mouth once romi ly Bacillus coagulans/inulin (PROBIOTIC WITH PREBIOTIC ORAL) Take 1 capsule by mouth once daily. 0 Active Comment on above: Take 1 capsule by [facility] once daily. benoxinate hydrochloride 4 mg/ml / [...] mg oral capsule (20 sources) Start: 10-17-2017 Start: 10-17-2017 take 2500 ug by mouth once romi ly Biotin Active 2500 MCG PO daily October 17, 2017 12:00am take 1 capsule by mouth once romi ly Biotin 2,500 mcg cap Indications: Hair loss Take 2,500 mg by mouth once daily. Active Comment on above: [facility] 2,[facility] cephalexin 500 mg oral capsule (14 sources) Cephalosporin Antibacterial Start: 10-18-2024 take 1 capsule by mouth three times daily Start: 01-25-2023 End: 05-28-2023 take 1 capsule by mouth three times daily Cephalexin 500 mg capsule Discontinued 500 mg PO THREE TIMES A DAY 0 January 25, 2023 1:00am May 28, 2023 10:29am Start: 12-15-2022 End: 12-22-2022 take 1 capsule by mouth twice daily cephALEXin (KEFLEX) 500 mg capsule Indications: Recurrent UTI (urinary tract infection) Take 1 capsule by mouth two times a day for 7 days. 14 capsule 0 12/15/2022 12/22/2022 Active Comment on above: Take 1 capsule by [facility] two times a day for 7 days. cholecalciferol, vitamin D3, (VITAMIN D3 PO) (1 source) take 1 tablet by mouth once daily as needed cholecalciferol, vitamin D3, (VITAMIN D3 PO) Take 1 tablet by mouth once daily as needed. Active diphenhydrAMINE hydrochloride 25 mg oral capsule (16 sources) Histamine-1 Receptor Antagonist Start: 015 take 1 capsule by mouth twice daily as needed doxycycline monohydrate 100 mg oral tablet (1 source) Tetracycline-class Drug Start: 023 End: 023 take 1 tablet by mouth twice daily doxycycline monohydrate 100 mg tablet Take 1 tablet by mouth twice daily for 5 days. 10 tablet 0 07/15/2022 07/20/2022 Active Comment on above: Take 1 tablet by [facility] twice daily for 5 days. [id number] 0.3 ml EPINEPHrine 1 mg/ml auto-injector (5 sources) alpha-Adrenergic Agonist, beta-Adrenergic Agonist, Catecholamine Start: EPINEPHrine (EPIPEN) 0.3 mg/0.3 mL auto-injector Inject 0.3 mg intramuscularly as needed. 04/22/2024 Active L.Acidoph,Plant-B.Anim alLong (8 sources) Start: 015 Marquise,Plant-B.Anim alLong Active 1 EACH PO DAILY April 26, 2014 5:16pm Start: 04-26-2014 Marquise,Plan t-B.Animal,Long Active 1 EACH PO DAILY April 26, 2014 12:00am Start: 04-26-2014 Marquise,Plan t-B.Animal,Long Active 1 EACH PO DAILY April 26, 2014 1:00am Marquise,Plant-B.Animal,Reinier g 1 EACH capsule (8 sources) Start: 04-26-2014 take 1 capsule by mouth once daily Start: 04-26-2014 take 1 capsule by mo uth once daily Marquise,Plant-B.AnimalLong 1 EACH cap michael Active 1 NMA PO DAILY April 26, 2014 1:00am lutein 20 mg oral capsule (20 sources) Start: 06-10-2022 take 1 capsule by mouth once d aily Start: 04-26-2014 End: 08-02-2021 take 1 capsule by mouth once daily Lutein Discontinued 1 CAP PO DAILY April 26, 2014 5:16pm August 02, 2021 1:34pm Start: 04-26-2014 take 1 capsule by mo [facility] once daily Lutein Active 1 CAP PO [...] take 1 tablet by mouth once daily Start: 03-09-2018 End: 12-09-2022 Magnesium Amino Acid Chelate 100 MG tablet Discontinued 200 mg PO DAILY March 09, 2018 1:00am December 09, 2022 8:05am Start: 03-09-2018 End: 12-09-2022 take 200 mg by mouth once daily Magnesium Amino Acid Chelate Discontinued 200 MG PO DAILY March 09, 2018 1:00am December 09, 2022 8:05am nattokinase (20 sources) Start: 12-05-2020 take 1 tablet by mouth once da paul Start: 12-05-2020 take 1 tablet by brett [...] 04/09/2013 Active OTC PRODUCT Mist letoe- r/t [facility] study Active End: 11-11-2023 OTC PRODUCT 250 mg once eliana y. Quercetin 11/11/2023 Discontinued OTC PRODUCT Mist letoe- r/t [facility] study 0 Active OTC PRODUCT 250 mg once daily. Quercetin 0 Active Comment on above: Take 100 mg by mouth twice daily. Nattokinase 100mg: Take one(1) tablet daily. [place]- r/t [facility] study 250 mg once daily. Q uercetin [...] for hemachromat osis (20 sources) Start: 12-09-2022 Start: 12-09-2022 phlebotomies f or hemachromatosis Active [...] mg oral capsule (20 sources) Start: 06-30-2024 Start: 06-10-2022 End: 12-09-2022 Quercetin 500 mg capsule Discontinued mg PO June 10, 2022 12:00am December 09, 2022 8:05am Start: 06-10-2022 End: 12-09-2022 Quercetin Discontinued MG PO June 10, 2022 12:00am December 09, 2022 8:05am Start: 06-10-2022 End: 12-09-2022 Quercetin Discontinued MG PO June 09, 2022 11:00pm December 09, 2022 7:05am take 1 tablet by brett once daily as needed quercetin 500 mg cap Take 1 tablet by mouth once daily as needed. Active [place] Grass Extract-Quercetin (7 sources) Start: 08-02-2021 [place] Grass Extr act-Quercetin Active TABLET PO August 02, 2021 1:35pm Start: 08-02-2021 End: 12-20-2021 [place] Extract-Quercetin Discontinued TABLET PO August 01, 2021 11:00pm December 20, 2021 9:05am Start: 08-02-2021 End: 12-20-2021 [place] Extract-Quercetin Discontinued TABLET PO August 02, 2021 12:00am December 20, 2021 10:05am Start: 08-02-2021 [place] Grass Extr act-Quercetin Active TABLET PO August 02, 2021 12:00am soybean, fermented (NATTOKINASE ORAL) (7 sources) soybean, ferment ed (NATTOKINASE ORAL) Take 1-2 tablets by mouth once daily. 2,000 fu Active tafluprost 0.015 mg/ml ophthalmic solution (6 sources) Prostaglandin Analog Start: 06-30-2024 Start: 06-16-2024 tafluprost, PF , (ZIOPTAN) 0.0015 % ophthalmic solution dropperette Use 1 drop in eyes daily at bedtime. 30 each 11 06/16/2024 Active Tafluprost (Pf) 0.0015 % dropperette (7 sources) Start: 06-30-2024 Tafluprost (Pf ) 0.0015 % dropperette Active 1 NMA OPHTHALMIC [...] Drug Class(es) Dates Sig (Normalized) Sig (Original) [id number] 200 actuat albuterol 0.09 mg/actuat metered dose inhaler (20 sources) beta2-Adrenergic Agonist Start: 06-10-2022 take 1 puff(s) by inhalation every four hours as needed Albuterol Sulfate Active 2 PUFF INHALATION EVERY 4 HOURS NEEDED 8.June 10, 2022 9:10am Start: 07-18-2014 take 1 puff(s) by in halation every four hours as needed Albuterol Sulfate Active 2 PUFF INHALATION EVERY 4 HOURS NEEDED July 18, 2014 10:36am Start: 07-18-2014 End: 11-13-2023 Albuterol Sulfate 90 mcg/act uation HFA aerosol inhaler Discontinued 2 NMA INHALATION EVERY 4 HOURS NEEDED as needed for Wheezing 8.5 June 10, 2022 9:10am November 13, 2023 11:35am Start: 07-18-2014 End: 06-10-2022 take 1 puff(s) [...] Comment on above: Inhale as instructed . Albuterol Sulfate 1 PUFF inhaler (7 sources) Start: 015 End: Albuterol Sulfate 1 PUFF inhaler Discontinued 2 NMA INHALATION EVERY 4 HOURS NEEDED as needed for Wheezing July 18, 2014 12:00am June 10, 2022 9:10am amLODIPine 5 mg oral tablet (16 sources) Dihydropyridine Calcium Channel [place] Start: 021 End: 022 take 1 tablet by mouth once daily Amlodipine 5 mg tablet Discontinued 5 mg PO DAILY April 27, 2020 1:00am August 02, 2021 1:32pm cholecalciferol 0.125 mg oral capsule (20 sources) Vitamin D Start: 022 End: 025 take 1 capsule by mouth once daily Cholecalciferol (Vitamin D3) 125 mcg (5,000 unit) capsule Discontinued 87905 U PO DAILY December 20, 2021 10:05am June 30, 2024 2:30pm Start: 01-15-2016 End: 05-27-2024 take 1 capsule by mouth once daily Cholecalciferol (Vitamin D3) 5,000 UNIT capsule Discontinued 5000 U PO DAILY March 10, 2016 1:00am December 20, 2021 10:06am Comment on above: Take 1 capsule by mo uth once daily. cholecalciferol, vitamin D3, (VITAMIN D3 ORAL) (1 source) cholecalciferol, vitamin D3, (VITAMIN D3 ORAL) Take 5,000 Int'l Units/day by mouth once daily. Discontinued clindamycin 300 mg oral capsule (14 sources) Lincosamide Antibacterial Start: 11-01-19 22 End: 06-11-19 23 take 1 capsule by mouth every six hours Clindamycin Hcl (Cleocin Hcl) 300 mg capsule Discontinued 300 mg PO EVERY 6 HOURS 28 0 October 31, 2021 12:00am June 10, 2022 9:05am dexamethasone 1.5 mg oral tablet (16 sources) Corticosteroid Start: 03-13-19 17 End: 10-18-19 [...] ORAL) Take by mouth once daily. Active [place] Grass Extract-Quercetin 500-250 mg tablet (8 sources) Start: 08-02-2021 End: 12-20-2021 [place] Grass Extract-Quercetin 500-250 mg tablet Discontinued {tbl} [...] Comment on above: Take by mouth. Zinc (16 sources) Start: 05-28-2021 End: 08-02-2021 take 50 [...] Date Documented Da te Episodic/Chronic Abdominal pain (11 sources) Upper abdominal pain; Translations: [Upper abdominal pain, unspecified] 01-28-2022 Episodic Acute bronchitis (16 sources) Acute bronchitis; Translations: [Acute bronchitis, unspecified] [...] Onset: 8 01-15-2016 Chronic Biliary tract disease (16 sources) Gallstone; Translations: [Calculus of gallbladder without cholecystitis without obstruction] 11-11-2019 Episodic Blindness and vision defects (18 sources) Eye / vision finding; Translations: [Unspecified visual disturbance] 03-12-2018 Episodic Cancer of breast (20 sources) Intraductal carcinoma in situ of breast; Translations: [Intraductal carcinoma in situ of unspecified breast] Onset: 5 Chronic Cancer of breast (2 sources) History of ductal carcinoma in situ of breast; Translations: [Personal history of in-situ neoplasm of breast] Episodic Cardiac dysrhythmias (2 sources) Palpitations; Translations: [Palpitations] Onset: 5 12-01-2024 Episodic Cataract (17 sources) Cataract; Translations: [Unspecified cataract] 11-11-2019 Chronic Disorders of lipid metabolism (2 sources) Hypercholesterolemia; Translations: [Pure hypercholesterolemia, unspecified] Onset: 5 09-25-2023 Chronic Esophageal disorders (20 sources) Gastroesophageal reflux disease; Translations: [Gastro-esophageal reflux disease without esophagitis] Onset: 5 Chronic Genitourinary symptoms and ill-defined conditions (20 sources) Nocturia; Translations: [Nocturia] Onset: 5 Resolved: 2 05-09-2010 Episodic Glaucoma (20 sources) Glaucoma; Translations: [Unspecified glaucoma] Onset: 5 03-12-2018 Chronic Headache; including migraine (16 sources) Headache; Translations: [Left-sided headache] 03-12-2018 Episodic Comment on above: patient with episode of few minutes of blacked out vision Left eye 03/09/2016 which brought her to ER. Since this time she has had 2 further episodes of decrased vision OS. the last one was yesterday in which ptient claims lasted 1.5 hours Heart valve disorders (10 sources) Aortic valve stenosis; Translations: [Nonrheumatic aortic (valve) stenosis] 05-28-2023 Chronic Immunizations and screening for infectious disease (17 sources) Suspected disease caused by 2019-nCoV; Translations: [Suspected COVID-19 virus infection] Episodic Menopausal disorders (20 sources) Atrophic vaginitis; Translations: [Postmenopausal atrophic vaginitis] Onset: 5 10-21-2005 Chronic Miscellaneous mental health disorders (1 source) Anxiety about body function or health; Translations: [Other symptoms and signs involving emotional state] 09-25-2023 Episodic Nonspecific chest pain (1 source) Chest pain; Translations: [Chest pain, unspecified] 12-01-2024 Episodic Nutritional deficiencies (20 sources) Vitamin D deficiency; Translations: [Vitamin D deficiency, unspecified] Onset: Chronic Occlusion or stenosis of precerebral arteries (9 sources) Carotid artery stenosis; Translations: [Occlusion and stenosis of unspecified carotid artery] 06-06-2023 Chronic Open wounds of extremities (8 sources) Tear of skin; Translations: [Laceration without foreign body of right forearm, initial encounter] 11-21-2023 Episodic Osteoarthritis (17 sources) Arthritis; Translations: [Unspecified osteoarthritis, unspecified site] 11-11-2019 Chronic Other acquired deformities (8 sources) Scoliosis deformity of spine; Translations: [Scoliosis, unspecified] 02-11-2024 Chronic Other bone disease and musculoskeletal deformities (16 sources) Osteopenia; Translations: [Other specified disorders of bone density and structure, unspecified site] 11-11-2019 Episodic Other bone disease and musculoskeletal deformities (15 sources) Postmenopausal osteopenia; Translations: [Other specified disorders [...] deficits] 09-25-2023 Episodic Other connective tissue disease (16 sources) Polymyalgia rheumatica; Translations: [Polymyalgia rheumatica] 03-12-2018 Chronic Other gastrointestinal disorders (15 sources) Stool finding; Translations: [Other fecal abnormalities] [...] [Other psoriasis] Chronic Other lower respiratory disease (16 sources) H/O: pneumonia; Translations: [Personal history of pneumonia (recurrent)] 11-11-2019 Episodic Other lower respiratory disease (11 sources) Rib pain; Translations: [Pleurodynia] 01-28-2022 Episodic Other nervous system disorders (16 sources) Neuropathy; Translations: [Polyneuropathy, unspecified] 11-11-2019 Chronic Other nervous system disorders (5 sources) Polyneuropathy, unspecified; Translations: [Mononeuritis of unspecified site] Onset: 5 Chronic Other nervous system disorders (17 sources) Impaired cognition; Translations: [Other symptoms and signs involving cognitive functions and awareness] 05-28-2023 Episodic Other nervous system disorders (3 sources) Other symptoms and signs involving cognitive functions and awareness; Translations: [Other signs and symptoms involving cognition] Onset: 5 05-28-2023 Episodic Other non-traumatic joint disorders (6 sources) Pain in right knee; Translations: [Arthralgia of right knee] 09-12-2024 Episodic Other non-traumatic joint disorders (8 sources) Pain in left knee; Translations: [Left [...] Episodic Other nutritional; endocrine; and metabolic disorders (8 sources) H/O: thyroid disorder; Translations: [Personal history of other endocrine, nutritional and metabolic disease] 11-13-2023 Episodic Other upper respiratory disease (20 sources) Allergic rhinitis; Translations: [Allergic rhinitis, unspecified] Onset: 5 06-24-2005 Chronic Other upper respiratory disease (16 sources) Seasonal allergic rhinitis; Translations: [Other seasonal allergic rhinitis] 03-12-2018 Chronic Other upper respiratory disease (2 sources) Allergic rhinitis, unspecified; Translations: [Allergic rhinitis, cause unspecified] Chronic Other upper respiratory disease (2 sources) Other seasonal allergic rhinitis; Translations: [Allergic rhinitis, cause unspecified] Chronic Other upper respiratory disease (1 source) Throat irritation; Translations: [Other diseases of pharynx] 10-28-2022 Episodic Other upper respiratory disease (10 sources) Nasal congestion; Translations: [Nasal congestion] 09-12-2024 Episodic Residual codes; unclassified (18 sources) Other specified health status; Translations: [Consumes a vegan diet] 11-11-2019 Episodic Residual codes; unclassified (19 sources) Contact with and (suspected) exposure to mold (toxic); Translations: [Exposure to mold] Episodic Residual codes; unclassified (2 sources) Memory impairment; Translations: [Other amnesia] 08-15-2023 Episodic Residual codes; unclassified (2 sources) Forgetful; Translations: [Other general symptoms and signs] 08-15-2023 Episodic Retinal detachments; defects; vascular occlusion; and retinopathy (20 sources) Degenerative disorder of macula ; Translations: [Unspecified macular degeneration] Onset: Chronic Skin and subcutaneous tissue infections (14 sources) Cellulitis of face; Translations: [Cellulitis of face] 11-08-2021 Episodic Systemic lupus erythematosus and connective tissue disorders (16 sources) Temporal arteritis; Translations: [Other giant cell arteritis] 11-11-2019 Chronic Thyroid disorders (17 sources) Thyroid nodule; Translations: [Nontoxic single thyroid nodule] Onset: 5 11-11-2019 Chronic Comment on above: 3, benign [...] [Functional gastrointestinal disorder] Onset: 5 Episodic Other screening for suspected conditions (not mental disorders or infectious disease) (7 sources) Patient encounter status; Translations: [Encounter for other screening for malignant neoplasm of breast] Onset: 4 10-25-2022 Episodic Other upper respiratory infections (19 sources) Upper respiratory infection; Translations: [Acute upper respiratory infection, unspecified] Onset: 5 Episodic Results Test Name Value Interpretation Reference Range Facility CBC W Auto Differential pane l (Bld)on 01-03-2025 Basophils (Bld) [#/Vol] 0.07 10*3/uL Normal <0.11 [facility] Comment on above: Order Comment: Speci men Type: BLOOD SPECIMENOrdering Facility: [facility] Address: [address] [place] [address] Performed By: #### 5 7021-8 ####[facility] [id number] [place] [address] [place] Basophils/100 WBC (Bld) 1.2 % Normal [facility] Comment on above: Order Comment: Speci men Type: BLOOD SPECIMENOrdering Facility: [facility] Address: [address] [place] [address] Performed By: #### 5 7021-8 ####[facility] [id number] [place] [address] [place] Differential cell count method Nom (Bld) Auto Normal [facility] Comment on above: Order Comment: Speci men Type: BLOOD SPECIMENOrdering Facility: [facility] Address: [address] [place] [address] Performed By: #### 5 7021-8 ####[facility] [id number] [place] [address] [place] Eosinophils (Bld) [#/Vol] 0.09 10*3/uL Normal <0.46 [facility] Comment on above: Order Comment: Speci men Type: BLOOD SPECIMENOrdering Facility: [facility] Address: [address] [place] [address] Performed By: #### 5 7021-8 ####[facility] SHANIQUE [id number] [place] [address] [place] Eosinophils/100 WBC (Bld) 1.6 % Normal [facility] Comment on above: Order Comment: Speci men Type: BLOOD SPECIMENOrdering Facility: [facility] Address: [address] [place] [address] Performed By: #### 5 7021-8 ####[facility] AVELINADarleneMACK [id number] [place] [address] [place] Erythrocyte distribution width (RBC) [Ratio] 13.2 % Normal 11.5-15.0 [facility] Comment on above: Order Comment: Speci men Type: BLOOD SPECIMENOrdering Facility: [facility] Address: [address] [place] [address] Performed By: #### 5 7021-8 ####[facility] [id number] [place] [address] [place] Hematocrit (Bld) [Volume fraction] 45.4 % Normal 36.0-46.0 [facility] Comment on above: Order Comment: Speci men Type: BLOOD SPECIMENOrdering Facility: [facility] Address: [address] [place] [address] Performed By: #### 5 7021-8 ####[facility]ITALDIMITRISLIA [id number] [place] [address] [place] Hemoglobin (Bld) [Mass/Vol] 15.4 g/dL Normal 11.5-15.5 [facility] Comment on above: Order Comment: Speci men Type: BLOOD SPECIMENOrdering Facility: [facility] Address: [address] [place] [address] Performed By: #### 5 7021-8 ####[facility] MILLWNCLIA [id number] [place] [address] [place] Immature granulocytes (Bld) [#/Vol] 10*3/uL Normal <0.10 [facility] Comment on above: Order Comment: Speci men Type: BLOOD SPECIMENOrdering Facility: [facility] Address: [address] [place] [address] Performed By: #### 5 7021-8 ####[facility]ALL[facility] [id number] [place] [address] [place] Immature granulocytes/100 WBC (Bld) 0.2 % Normal [facility] Comment on above: Order Comment: Speci men Type: BLOOD SPECIMENOrdering Facility: [facility] Address: [address] [place] [address] Performed By: #### 5 7021-8 ####[facility] ERA [id number] [place] [address] [place] Lymphocytes (Bld) [#/Vol] 1.30 10*3/uL Normal 1.00-4.00 [facility] Comment on above: Order Comment: Speci men Type: BLOOD SPECIMENOrdering Facility: [facility] Address: [address] [place] [address] Performed By: #### 5 7021-8 ####[facility] [id number] [place] [address] [place] Lymphocytes/100 WBC (Bld) 22.8 % Normal [facility] Comment on above: Order Comment: Speci men Type: BLOOD SPECIMENOrdering Facility: [facility] Address: [address] [place] [address] Performed By: #### 5 7021-8 ####[facility] [id number] [place] [address] [place] MCH (RBC) [Entitic mass] 29.4 pg Normal 26.0-34.0 [facility] Comment on above: Order Comment: Speci men Type: BLOOD SPECIMENOrdering Facility: [facility] Address: [address] [place] [address] Performed By: #### 5 7021-8 ####[facility] [id number] [place] [address] [place] MCHC (RBC) [Mass/Vol] 33.9 g/dL Normal 30.5-36.0 [facility] Comment on above: Order Comment: Speci men Type: BLOOD SPECIMENOrdering Facility: [facility] Address: [address] [place], [place] [id number] Performed By: #### 5 7021-8 ####[facility] [id number] [place] [address] [place] MCV (RBC) [Entitic vol] 86.8 fL Normal 80.0-100.0 [facility] Comment on above: Order Comment: Speci men Type: BLOOD SPECIMENOrdering Facility: [facility] Address: [address] [place] [address] Performed By: #### 5 7021-8 ####[facility] [id number] [place] [address] [place] Monocytes (Bld) [#/Vol] 0.44 10*3/uL Normal <0.87 [facility] Comment on above: Order Comment: Speci men Type: BLOOD SPECIMENOrdering Facility: [facility] Address: [address] [place] [address] Performed By: #### 5 7021-8 ####[facility] [id number] [place] [address] [place] Monocytes/100 WBC (Bld) 7.7 % Normal C [facility] Comment on above: Order Comment: Speci men Type: BLOOD SPECIMENOrdering Facility: [facility] Address: [address] [place] [address] Performed By: #### 5 7021-8 ####[facility] [id number] [place] [address] [place] Neutrophils (Bld) [#/Vol] 3.78 10*3/uL Normal 1.45-7.50 [facility] Comment on above: Order Comment: Speci men Type: BLOOD SPECIMENOrdering Facility: [facility] Address: [address] [place] [address] Performed By: #### 5 7021-8 ####[facility] [id number] [place] [address] [place] Neutrophils/100 WBC (Bld) 66.5 % Normal [facility] Comment on above: Order Comment: Speci men Type: BLOOD SPECIMENOrdering Facility: [facility] Address: [address] [place] [address] Performed By: #### 5 7021-8 ####[facility] [id number] [place] [address] [place] Nucleated RBC (Bld) [#/Vol] 10*3/uL Normal <0.01 [facility] Comment on above: Order Comment: Speci men Type: BLOOD SPECIMENOrdering Facility: [facility] Address: [address] [place] [address] Performed By: #### 5 7021-8 ####[facility] [id number] [place] [address] [place] Nucleated RBC/100 WBC (Bld) [Ratio] 0.0 /100 WBC Normal [facility] Comment on above: Order Comment: Speci men Type: BLOOD SPECIMENOrdering Facility: [facility] Address: [address] [place] [address] Performed By: #### 5 7021-8 ####[facility]ITALTOWNCLIA [id number] [place] [address] [place] Platelet mean volume (Bld) [Entitic vol] 9.7 fL Normal 9.0-12.7 [facility] Comment on above: Order Comment: Speci men Type: BLOOD SPECIMENOrdering Facility: [facility] Address: [address] [place] [address] Performed By: #### 5 7021-8 ####[facility] AVELINAXAVIERA [id number] [place] [address] [place] Platelets (Bld) [#/Vol] 201 10*3/uL Normal 150-400 [facility] Comment on above: Order Comment: Speci men Type: BLOOD SPECIMENOrdering Facility: [facility] Address: [address] [place] [address] Performed By: #### 5 7021-8 ####[facility] [id number] [place] [address] [place] RBC (Bld) [#/Vol] 5.23 10*6/uL High 3.90-5.20 [facility] Comment on above: Order Comment: Speci men Type: BLOOD SPECIMENOrdering Facility: [facility] Address: [address] [place] [address] Performed By: #### 5 7021-8 ####[facility] [id number] [place] [address] [place] WBC (Bld) [#/Vol] 5.69 10*3/uL Normal 3.70-11.00 [facility] Comment on above: Order Comment: Speci men Type: BLOOD SPECIMENOrdering Facility: [facility] Address: [address] [place] [address] Performed By: #### 5 7021-8 ####[facility] [id number] [place] [id number] [facility] Nevin 01-03-2025 CNPN Telephone (HEMAWS) EDER SEVERINO ([id number]) 1945 F Date Time Provider Department 01/03/25 LUIS RON During your visit today, we recorded the following information about you: Latha Nash 01/03/2025 8:33 AM Signed This pt stopped in today and stated she would like to get a mammogram afterall and was wondering if the order coulad be placed. She initially declined. Luis Lynch DO 01/03/2025 11:43 AM Signed Thank you. Order filed. DO Todd Desai Melanie, LPN 01/03/2025 11:46 AM Signed PSS- please contact patient to schedule mammogram. WILLA Platt Naomi 01/03/2025 2:35 PM Signed Lvm for pt to call back and schedule mammo. Kaylie Jung 01/04/2025 12:39 PM Signed Patient scheduled mamm Allergies As of Date: 01/03/2025 Noted Allergy Reaction SULFA (SULFONAMIDE ANTIBIOTICS) 11/22/2004 [...] headache , facial Twitching, jittery Date Reviewed: 10/12/2024 Reviewed by: Luis Ron DO - Fully Assessed Primary Visit Diagnosis:Encounter for screening breast examination [Z12.39] Order(s):GOOD SCREENING W MALOU [[id number]] Order #: [id number] FUTURE Prescriptions as of 01/04/2025 - cholecalciferol, vitamin D3, (VITAMIN D3 PO) Take 1 tablet by mouth once daily as needed. - triamcinolone acetonide (KENALOG) 0.1 % cream Apply 1 application to affected area once daily. - EPINEPHrine (EPIPEN) 0.3 mg/0.3 mL auto-injector Inject 0.3 mg intramuscularly as needed. - tafluprost, PF, (ZIOPTAN) 0.0015 % ophthalmic solution dropperette Use 1 drop in eyes daily at bedtime. - quercetin 500 mg cap Take 1 tablet by mouth once daily as needed. - LUTEIN-ZEAXANTHIN ORAL Take 10 mg by mouth once daily. - soybean, fermented (NATTOKINASE ORAL) Take 1-2 tablets by mouth once daily. 2,000 fu - cholecalciferol, vitamin D3, (VITAMIN D3 ORAL) (Discontinued) Take 5,000 Int'l Units/day by mouth once daily. - Bacillus coagulans/inulin (PROBIOTIC WITH PREBIOTIC ORAL) Take 1 capsule by mouth once daily. - OTC PRODUCT [place]- r/t [facility] study - MAGNESIUM ORAL Take 1-2 tablets by mouth once daily. - Biotin 2,500 mcg cap Take 2,500 mg by mouth once daily. - OTC PRODUCT Take 100 mg by mouth twice daily. Nattokinase 100mg: Take one(1) tablet daily. Problem List As Of Date 01/03/2025 Noted Resolved ALLERGIC RHINITIS NOS [J30.9] 11/22/2004 [...] Hereditary hemochromatosis (HCC) [E83.110] 07/05/2016 Globus sensation [R09.A2] 11/06/2016 H/O polymyalgia rheumatica [Z87.39] 02/12/2018 Primary open angle glaucoma (POAG) of left eye,*06/16/2024 Primary open angle glaucoma (POAG) of right eye*06/16/2024 Encounter Status:Closed by KAYLIE CRONIN on 01/04/25 Normal [facility] Ferritin SerPl-mCncon 2024 Ferritin [Mass/Vol] 40.1 ng/mL Normal 14.7-205.1 [facility] Comment on above: Order Comment: Speci men Type: BLOOD SPECIMENOrdering Facility: [facility] Address: [address] [place] [address] Performed By: #### 2 276-4 ####[facility] LABCLIA [id number] [place] [address] [place] MR/BMS.IMBon 12-27-2024 MR/BMS.IMB [facility] [address] [place] [address] OFFICE VISIT Date of Service: 12/27/24 MR#: [id number] Acct: [id number] Name: EDER SEVERINO Rep #: [id number] : 1945 Provider: Dr. Katarina dias MD Age/Sex: 79/F Location: [facility] Status: Signed Intake Vital Signs 06/30/24 14:34 12/01/24 14:33 12/27/24 14:28 Height 5 ft 5 in 5 ft 5 in 5 ft 5 in Weight: 155 lb 8 oz BMI 25.9 BP 187/72 H Blood Pressure Location Rt brachial Position Sitting Respiration 16 Pulse 59 L Pulse Source Monitor Temp 98.4 F Temp Source Temporal Pulse Oximetry (%) 96 Oxygen Delivery Method room air Intake Visit Reasons: 6 M FU Chief Complaint: [employer] Specialist Required: No Accompanied by: Self Is patient in pain?: No Allergies aspirin Allergy (Mild, Verified 12/27/24 14:21) unknown calcium carbonate (From Tums) Allergy (Mild, Verified 12/27/24 14:21) Other estradiol (From Vagifem) Allergy (Mild, Verified 12/27/24 14:21) unknown latanoprost (From Xalatan) Allergy (Mild, Verified 12/27/24 14:21) unknown miconazole (From Monistat 3) Allergy (Mild, Verified 12/27/24 14:21) burining, headache, nausea phenazopyridine Allergy (Mild, Verified 12/27/24 14:21) Other propoxyphene (From Darvon) Allergy (Mild, Verified 12/27/24 14:21) Other ranitidine (From Zantac) Allergy (Mild, Verified 12/27/24 14:21) unknown skin cleanser combination no.17 (From Monistat 3) Allergy (Mild, Verified 12/27/24 14:21) burining, headache, nausea tioconazole (From Monistat 1 (tioconazole)) Allergy (Mild, Verified 12/27/24 14:21) burning, headache, nausea amoxicillin Allergy (Verified 12/27/24 14:21) Anaphylaxis ibuprofen (From Advil) Allergy (Verified 12/27/24 14:21) Other indomethacin (From Indocin) Allergy (Verified 12/27/24 14:21) Anaphylaxis indomethacin sodium (From Indocin) Allergy (Verified 12/27/24 14:21) Anaphylaxis prednisolone Allergy (Verified 12/27/24 14:21) Swelling Sulfa (Sulfonamide Antibiotics) Allergy (Verified 12/27/24 14:21) Anaphylaxis barium sulfate Adverse Reaction (Verified 12/27/24 14:21) Rash nitrofurantoin macrocrystalline (From Macrodantin) Adverse Reaction (Verified 12/27/24 14:21) Other prednisone Adverse Reaction (Verified 12/27/24 14:21) Other progesterone Adverse Reaction (Verified 12/27/24 14:21) Other propoxyphene HCl (From Darvon) Adverse Reaction (Verified 12/27/24 14:21) Other Medications ???Medication ???Instructions ???Recorded ???Confirmed ???Type L.acidophilus-L.plantar um-B.animalis-B.longum 1 ea PO DAILY 5 12/27/24 History 2 billion cell capsule biotin 1 mg capsule 2,500 mcg PO QDAY 10/17/17 5 History Nattokinase 2,000 mg PO DAILY 12/05/20 5 History lutein 20 mg capsule 20 mg PO DAILY 06/10/22 12/27/24 H istory magnesium amino acid chelate 100 100 mg PO DAILY 12/09/22 12/27/24 History mg tablet phlebotomies for hemachromatosis See Rx Instructions IM .COMPLEX 12/27/24 History albuterol sulfate 90 mcg/actuation 2 puff inhalation Q4H PRN PRN 12/27/24 Rx aerosol inhaler Wheezing #8.5 grams quercetin 500 mg capsule mg PO 06/30/24 12/27/24 History Held on 09/12/24. Instructions: Conflicting Appointment tafluprost (PF) 0.0015 % eye drops 1 drp ophthalmic (eye) QHS 06/3012/27/24 History in a dropperette diphenhydramine HCl 25 mg capsule 25 mg PO BID PRN PRN Allergies 12/27/24 History Have you fallen in the past year?: No PFSH Medical History Left knee pain History of thyroid nodule [...] use what type of physical activity do (more content not included)... Normal [facility] 12 Lead EKGon 12-01-2024 12 Lead EKG [facility] Cardiovascular Services [address] [place] [address] 12 Lead EKG 12/01/24 1447 MR#: [id number] Acct: [id number] Name: EDER SEVERINO Rep #: [id number] : 1945 79 From: Young Brush MD Attending Dr: Status: DEP ER Ordering Dr: Chico Enriquez MD Date: 12/01/24 Location: ED Sex: F C Admitted: Test Reason : PALP Blood Pressure : */* mmHG Vent. Rate : 68 BPM Atrial Rate : 68 BPM P-R Int : 174 ms QRS Dur : 136 ms QT Int : 426 ms P-R-T Axes : 57 49 20 degrees QTcB Int : 452 ms Normal sinus rhythm Right bundle branch block Abnormal ECG Confirmed by Young Brush ([id number]), news copy editor LISANDRA CARVALHO ([id number]) on 12/03/2024 5:46:08 AM Referred By: AR/SANDHYA Confirmed By: Young Brush 12/03/24 0546 Date Young Brush MD CC: Dr. Chico Enriquez MD; Dr. Katarina Medina MD Signed Normal [facility] Absolute lymphocyte countOrd ered By: Chico Enriquez on 12-01-2024 Lymphocytes Auto (Unsp spec) [#/Vol] 1.80 10*3/uL 0.83-4.[address] [facility] Absolute neutrophil countOrd ered By: Chico Enriquez on 12-01-2024 Neutrophils (Bld) [#/Vol] 3.8 10*3/uL 2.0-7.[address] [facility] Anion gap in Serum or Plasma Ordered By: Chico Enriquez on 12-01-2024 Anion gap [Moles/Vol] 10 mmol/L 5-15 [facility] Automated lymphocyte count a s percentage of total leukocytesOrdered By: Chico Enriquez on 12-01-2024 Lymphocytes/100 WBC Auto (Unsp spec) 28.5 % - [facility] BUN/creatinine ratioOrdered By: Chico Enriquez on 12-01-2024 Urea nitrogen/Creatinine [Mass ratio] 24.8 mg/mg High 12-[address] [facility] Basic Metabolic Profile (BMP )on 12-01-2024 BUN/CRE 24.8 RATIO High 12-[address] [facility] Comment on above: Performed By: #### L 100.0100, L501.4021, L500.2500 ####[facility] [address] [place], [address] Calcium [Mass/Vol] 10.1 mg/dL Normal 7.6-11.0 [facility] Comment on above: Performed By: #### L 100.0100, L501.4021, L500.2500 ####[facility] [address] [place], [address] Chloride [Moles/Vol] 103 mmol/L Normal 98-108 [facility] Comment on above: Performed By: #### L 100.0100, L501.4021, L500.2500 ####[facility] [address] [place], [address] CO2 [Moles/Vol] 24.9 mmol/L Normal 21.0-32.[address] [facility] Comment on above: Performed By: #### L 100.0100, L501.4021, L500.2500 ####[facility] [address] [place], [address] Creatinine [Mass/Vol] 0.70 mg/dL Normal 0.70-1.20 [facility] Comment on above: Performed By: #### L 100.0100, L501.4021, L500.2500 ####[facility] [address] [place], [address] ECRCL 55.02 ml/min Normal 50-[address] [facility] Comment on above: Performed By: #### L 100.0100, L501.4021, L500.2500 ####[facility] [address] [place], [address] GAP 10 Normal 5-[address] [facility] Comment on above: Performed By: #### L 100.0100, L501.4021, L500.2500 ####[facility] [address] [place], [address] GFR/1.73 sq M.predicted among non-blacks MDRD (S/P/Bld) [Vol rate/Area] 87 mL/min/{1.73_m2} Normal >[address] [facility] Comment on above: Result Comment: mL/m in/1.73m2 CKD-EPI Creatinine Equation (2020) Performed By: #### L 100.0100, L501.4021, L500.2500 ####[facility] [address] [place], [address] Glucose [Mass/Vol] 99 mg/dL Normal 70-99 [facility] Comment on above: Performed By: #### L 100.0100, L501.4021, L500.2500 ####[facility] [address] [place], [address] Potassium [Moles/Vol] 4.2 mmol/L Normal 3.3-5.1 [facility] Comment on above: Performed By: #### L 100.0100, L501.4021, L500.2500 ####[facility] [address] [place], [address] Sodium [Moles/Vol] 138 mmol/L Normal 133-145 [facility] Comment on above: Performed By: #### L 100.0100, L501.4021, L500.2500 ####[facility] [address] [place], [address] Urea nitrogen [Mass/Vol] 17 mg/dL Normal 4-[address] [facility] Comment on above: Performed By: #### L 100.0100, L501.4021, L500.2500 ####[facility] [address] [place], [address] Basophil percentageOrdered B y: Chico Zoe on 12-01-2024 Basophils/100 WBC (Bld) 1.3 % High 0-1 [facility] CBC W/Diff, Automatedon -5 Absolute Lymph 1.80 X10 3/uL Normal 0.83-4.51 [facility] Comment on above: Performed By: #### L 100.0100, L501.4021, L500.2500 ####[facility] [address] [place], [address] Absolute Neut 3.8 X10 3/uL Normal 2.0-7.[address] [facility] Comment on above: Performed By: #### L 100.0100, L501.4021, L500.2500 ####[facility] [address] [place], [address] Basophils/100 WBC (Bld) 1.3 % High 0-1 [facility] Comment on above: Performed By: #### L 100.0100, L501.4021, L500.2500 ####[facility] [address] [place], [address] Eosinophils/100 WBC (Bld) 2.2 % Normal 0-[address] [facility] Comment on above: Performed By: #### L 100.0100, L501.4021, L500.2500 ####[facility] [address] [place], [address] Erythrocyte distribution width (RBC) [Ratio] 12.8 % Normal 11.6-14.[address] [facility] Comment on above: Performed By: #### L 100.0100, L501.4021, L500.2500 ####[facility] [address] [place], [address] Hematocrit (Bld) [Volume fraction] 43.8 % Normal 37-[address] [facility] Comment on above: Performed By: #### L 100.0100, L501.4021, L500.2500 ####[facility] [address] [place], [address] Hemoglobin (Bld) [Mass/Vol] 14.8 g/dL Normal 12.0-15.[address] [facility] Comment on above: Performed By: #### L 100.0100, L501.4021, L500.2500 ####[facility] [address] [place], [address] IG% 0.300 Normal 0.0-0.[address] [facility] Comment on above: Result Comment: IG% - Immature Granulocytes (promyelocytes, myelocytes and metamyelocytes) > 1% indicates that a LEFT SHIFT is Present. Performed By: #### L 100.0100, L501.4021, L500.2500 ####[facility] [address] [place], [address] Lymphocytes/100 WBC (Bld) 28.5 % Normal 19-[address] [facility] Comment on above: Performed By: #### L 100.0100, L501.4021, L500.2500 ####[facility] [address] [place], [address] MCH (RBC) [Entitic mass] 28.5 pg Normal 27.0-32.[address] [facility] Comment on above: Performed By: #### L 100.0100, L501.4021, L500.2500 ####[facility] [address] [place], [address] MCHC (RBC) [Mass/Vol] 33.8 g/dL Normal 32-36 [facility] Comment on above: Performed By: #### L 100.0100, L501.4021, L500.2500 ####[facility] [address] [place], [address] MCV (RBC) [Entitic vol] 84.2 fL Normal 81-99 [facility] Comment on above: Performed By: #### L 100.0100, L501.4021, L500.2500 ####[facility] [address] [place], [address] Monocytes/100 WBC (Bld) 7.4 % Normal 0-10 [facility] Comment on above: Performed By: #### L 100.0100, L501.4021, L500.2500 ####[facility] [address] [place], [address] Neutrophils/100 WBC (Bld) 60.3 % Normal 47-[address] [facility] Comment on above: Performed By: #### L 100.0100, L501.4021, L500.2500 ####[facility] [address] [place], [address] Nucleated RBC (Bld) [#/Vol] 0 10*3/uL Normal 0-[address] [facility] Comment on above: Performed By: #### L 100.0100, L501.4021, L500.2500 ####[facility] [address] [place], [address] Platelet mean volume (Bld) [Entitic vol] 9.5 fL Normal 6.2-12.[address] [facility] Comment on above: Performed By: #### L 100.0100, L501.4021, L500.2500 ####[facility] [address] [place], [address] Platelets (Bld) [#/Vol] 228 10*3/uL Normal 150-[address] [facility] Comment on above: Performed By: #### L 100.0100, L501.4021, L500.2500 ####[facility] [address] [place], [address] RBC (Bld) [#/Vol] 5.20 10*6/uL Normal 4.2-5.4 [facility] Comment on above: Performed By: #### L 100.0100, L501.4021, L500.2500 ####[facility] [address] [place], [address] RDW SD 38.8 fl Normal 35.1-43.[address] [facility] Comment on above: Performed By: #### L 100.0100, L501.4021, L500.2500 ####[facility] [address] [place], [address] WBC (Bld) [#/Vol] 6.3 10*3/uL Normal 4.4-11.0 [facility] Comment on above: Performed By: #### L 100.0100, L501.4021, L500.2500 ####[facility] [address] [facility] [place], [address] Carbon dioxide, total [Moles /volume] in Central venous bloodOrdered By: Chico Enriquez on 12-01-2024 CO2 [Moles/Vol] 24.9 mmol/L 21.0-32.[address] [facility] Chest 1 View (Portable)on Chest 1 View (Portable) [facility] Imaging Services [address] [place] [address] Chest 1 View (Portable) MR#: [id number] Acct: [id number] Name: EDER SEVERINO Rep #: [id number] : 1945 F 79 From: Tyree Mendes MD PCP: Dr. Katarina Medina MD Status: [facility] ER Study: Chest 1 View (Portable) Date of Exam: 12/01/24 Exam# [id number] Ordering Dr: Chico Enriquez MD PROCEDURE: CHEST 1 VIEW (PORTABLE) 12/01/2024 REASON FOR EXAM: CHEST PAIN TECHNIQUE: Frontal view of the chest. COMPARISON: 09/12/2024 FINDINGS: Lungs/Pleura: Clear. No pneumothorax or sizable pleural effusion. Heart/Mediastinum: Mildly enlarged. No vascular congestion. Bones/Soft tissues: Degenerative changes of the spine. Left chest wall surgical clips. RAD/Chest 1 View (Portable) IMPRESSION: Mild cardiomegaly. No evidence of acute cardiopulmonary disease. Reading Location: [facility] [place] CC: Dr. Chico Enriquez MD; Dr. Katarina Medina MD Computer Repair Technician: Signed Normal [facility] Chloride assayOrdered By: Abundio Enriquez on 12-01-2024 Chloride [Moles/Vol] 103 mmol/L 98-108 [facility] Electrocardiogram reportOrde red By: Young Brush on 12-01-2024 EKG study [facility] Cardiovascular Services [address] [place] [address] 12 Lead EKG 12/01/24 1447 MR#: [id number] Acct: [id number] Name: EDER SEVERINO Rep #:[id number] : 1945 79 From: Young mak MD Attending Dr: Status: DEP E R Ordering Dr: Chico Enriquez MD Date: Location: ED Sex: F C Admitted: Test Reason : PALP Blood Pressure : */* mmHG Vent. Rate : 68 BPM Atrial Rate : 68 BPM P-R Int : 174 ms QRS Dur : 136 ms QT Int : 426 ms P-R-T Axes : 57 49 20 degrees QTcB Int : 452 ms Normal sinus rhythm Right bundle branch block Abnormal ECG Confirmed by Young Brush ([id number]), news copy editor LISANDRA CARVALHO ([id number]) on 55:46:08 AM Referred By: JIGNESH/SANDHYA Confirmed By: Young Brush 12/03/24 0546 Date _ Young Brush MD CC: Dr. Chico Enriquez MD; Dr. Katarina Medina MD ~ Signed [facility] Other Phone: Emergency Department Summary on 12-01-2024 Emergency Department Summary [facility] Medical Records Department [address] [place] [address] Emergency Department Summary 12/01/24 MR#: [id number] Acct: [id number] Name: EDER SEVERINO Rep #: [id number] : 1945 79 From: Chico Enriquez MD PCP: Dr. Katarina Medina MD Status:REG ER Location: ED HPI History of Present Illness Chief Complaint: Palpitations Narrative Narrative: 79-year-old female past medical history of glaucoma and macular degeneration states she has been on eyedrops from her title clerk automobile, Dr. Chan, for 3 to 4 months. She presents to the emergency department today because of episodes that happened on Friday, 2 days ago. She relates history that she was having chest pains, at least 4 episodes within 30 to 45 minutes. That resolved. Later that evening she experienced a regular heart rate and palpitations. She states she awoke with that the next morning, but has since resolved. She was reading that some of her eyedrops could cause cardiac events. She withheld her eyedrops and made an appointment with her title clerk automobile to see if there was a correlation. She states she wants to restart the medication but is afraid to do so. She presents to the emergency department wanting to make sure that the chest pain that she had 2 days ago was not a cardiac event that was significant. She states she was told by her friend that there was a blood test that could be performed to see if she had a heart attack on Friday. She denies other symptoms, no nausea or vomiting, no shortness of breath. [facility] Medical History Left knee pain History of thyroid nodule [...] mg PO .COMPLEX #12 tabs Unknown Rx cephalexin 500 mg capsule 500 mg PO TID #15 caps 10/18/24 Un known Rx Allergy/AdvReac Type Severity Reaction Status Date / Time aspirin Allergy Mild unknown Verified 12/01/24 14:37 calcium carbonate (From Tums) Allergy Mild Other Verified 12/01/24 14:37 estradiol (From Vagifem) Allergy Mild unknown Verified 12/01/24 14:37 latanoprost (From Xalatan) Allergy Mild unknown Verified 12/01/24 14:37 miconazole (From Monistat 3) Allergy Mild burining, Verified 12/01/24 14:37 headache, nausea phenazopyridine Allergy Mild Other Verified 12/01/24 14:37 propoxyphene (From Darvon) Allergy Mild Other Verified 12/01/24 14:37 ranitidine (From Zantac) Allergy Mild unknown Verified 12/01/24 14:37 skin cleanser combination Allergy Mild burining, Verified 12/01/24 14:37 no.17 (From Monistat 3) headache, nausea tioconazole (From Monistat 1 Allergy Mild burning, Verified 12/01/24 14:37 (tioconazole)) headache, nausea amoxicillin Allergy Anaphylaxis Verified 12/01/24 14:37 ibuprofen (From Advil) Allergy Other Verified 12/01/24 14:37 indomethacin (From Indocin) Allergy Anaphylaxis Verified 12/01/24 14:37 indomethacin sodium (From Allergy Anaphylaxis Verified 12/01/24 14:37 Indocin) prednisolone Allergy Swelling Verified 12/01/24 14:37 Sulfa (Sulfonamide Allergy Anaphylaxis Verified 12/01/24 14:37 Antibiotics) barium sulfate AdvReac Rash Verified 12/01/24 14:37 nitrofurantoin AdvReac Other Verified 12/01/24 14:37 macrocrystalline (From Macrodantin) prednisone AdvReac Other Verified 12/01/24 14:37 (more content not included)... Normal [facility] Eosinophil percentageOrdered By: Chico Enriquez on 12-01-2024 Eosinophils/100 WBC (Bld) 2.2 % 0-[address] [facility] Erythrocyte distribution wid th ratioOrdered By: Chico Enriquez on 12-01-2024 Erythrocyte distribution width (RBC) [Ratio] 12.8 % 11.6-14.[address] [facility] Erythrocyte distribution wid th standard deviationOrdered By: Chico Enriquez on 12-01-2024 Erythrocyte distribution width (RBC) [Ratio] 38.8 fl 35.1-43.[address] [facility] Glomerular filtration rate ( GFR) estimation/1.73 sq m using serum, plasma, or whole bOrdered By: Chico Enriquez on 12-01-2024 GFR/1.73 sq M.predicted among non-blacks MDRD (S/P/Bld) [Vol rate/Area] 87 mL/min/{1.73_m2} >[address] [facility] Comment on above: mL/min/1.73m2 CKD-EP I Creatinine Equation (2020) Hematocrit Auto (Bld) [Volum e fraction]Ordered By: Chico Enriquez on 12-01-2024 Hematocrit (Bld) [Volume fraction] 43.8 % 37-[address] [facility] Hemoglobin measurementOrdere d By: Chico Enriquez on 12-01-2024 Hemoglobin (Bld) [Mass/Vol] 14.8 g/dL 12.0-15.[address] [facility] Immature granulocytes/100 WB C Auto (Bld)Ordered By: Chico Enriquez on 12-01-2024 Immature granulocytes/100 WBC (Bld) 0.300 % 0.0-0.[address] [facility] Comment on above: IG% - Immature Granu locytes (promyelocytes, myelocytes and metamyelocytes) > 1% indicates that a LEFT SHIFT is Present. L501.4021on 12-01-2024 Trop T High Sen 14 ng/L Normal <=[address] [facility] Comment on above: Performed By: #### L 100.0100, L501.4021, L500.2500 ####[facility] [address] [place], [address] MCV (mean corpuscular volume ) determinationOrdered By: Chico Enriquez on 12-01-2024 MCV (RBC) [Entitic vol] 84.2 fL 81-99 [facility] Mean corpuscular hemoglobin (MCH) determinationOrdered By: Chico Enriquez on 12-01-2024 MCH (RBC) [Entitic mass] 28.5 pg 27.0-32.[address] [facility] Mean corpuscular hemoglobin concentration (MCHC) determinationOrdered By: Chico Enriquez on 12-01-2024 MCHC (RBC) [Mass/Vol] 33.8 g/dL 32-36 [facility] Mean platelet volume determi nationOrdered By: Chico Enriquez on 12-01-2024 Platelet mean volume (Bld) [Entitic vol] 9.5 fL 6.2-12.[address] [facility] Monocyte percentageOrdered B y: Chico Enriquez on 12-01-2024 Monocytes/100 WBC (Bld) 7.4 % 0-10 [facility] Neutrophil percentageOrdered By: Chico Enriquez on 12-01-2024 Neutrophils/100 WBC (Bld) 60.3 % 47-[address] [facility] Nucleated red blood cell per centageOrdered By: Chico Enriquez on 12-01-2024 Nucleated RBC/100 WBC (Bld) [Ratio] 0 % 0-[address] [facility] Platelet countOrdered By: Abundio Enriquez on 12-01-2024 Platelets (Bld) [#/Vol] 228 10*3/uL 150-[address] [facility] Potassium measurement (mass/ volume)Ordered By: Chico Enriquez on 12-01-2024 Potassium (Unsp spec) [Mass/Vol] 4.2 mmol/L 3.3-5.[address] [facility] RBC Auto (Bld) [#/Vol]Ordere d By: Chico Enriquez on 12-01-2024 RBC (Bld) [#/Vol] 5.20 10*6/uL 4.2-5.4 [facility] Serum creatinine measurement (mass/volume)Ordered By: Chico Enriquez on 12-01-2024 Creatinine [Mass/Vol] 0.70 mg/dL 0.70-1.20 [facility] Serum glucose measurement (m ass/volume)Ordered By: Chico Enriquez on 12-01-2024 Glucose [Mass/Vol] 99 mg/dL 70-99 [facility] Serum or plasma calcium chapis urement (mass/volume)Ordered By: Chico Enriquez on 12-01-2024 Calcium [Mass/Vol] 10.1 mg/dL 7.6-11.0 [facility] Serum or plasma urea nitroge n measurement (mass/volume)Ordered By: Chico Enriquez on 12-01-2024 Urea nitrogen [Mass/Vol] 17 mg/dL 4-[address] [facility] Sodium levelOrdered By: Chico Enriquez on 12-01-2024 Sodium [Moles/Vol] 138 mmol/L 133-145 [facility] Troponin T HS 4 HRon 025 Trop T High Sen Normal <=[address] [facility] Comment on above: Result Comment: Canc elled via OM: Order cancelled - Patient discharged Performed By: #### L 499.0043 #### [facility] Laboratory [address] [place], [address] Result Comment: OMI ENT DISCHARGED Performed By: #### L 499.0042 ####[facility] [address] [place], [place], [address] Troponin T.cardiac [Mass/vol ume] in Serum or Plasma by High sensitivity methodOrdered By: Chico Enriquez on 12-01-2024 Troponin T.cardiac High sensitivity method [Mass/Vol] 14 ng/L <[address] [facility] White blood cell (WBC) count Ordered By: Chico Enriquez on 12-01-2024 WBC (Bld) [#/Vol] 6.3 10*3/uL 4.4-11.0 [facility] Urine Cultureon 10-20-2024 URC Escherichia coli [place] Count 11,000-25,000 Escherichia coli: REACTION Ampicillin Islt [...] TMP SMX Islt TOMASA <=[address] [facility] Comment on above: Performed By: #### M 100.2200 ####[facility] [address] [place], [place], [address] Laboratory - Chemistry and C hemistry - challengeOrdered By: Moose Lawrence on 10-18-2024 Bilirubin Ql (U) Negative [facility] Glucose Ql (U) Negative [facility] Ketones Ql (U) Negative [facility] pH (U) 6.5 [pH] [facility] Specific gravity (U) [Rel density] 1.[address] [facility] Urobilinogen (U) [Mass/Vol] 1 mg/dL [facility] Laboratory - Hematology and Cell countsOrdered By: Moose Lawrence on 10-18-2024 Hemoglobin Ql (U) Negative [facility] Laboratory - Specimen inform ationOrdered By: Moose Lawrence on 10-18-2024 Clarity (U) Clear [facility] Color (U) YELLOW [facility] Laboratory - UrinalysisOrder ed By: Moose Lawrence on 10-18-2024 Nitrite Ql (U) Negative [facility] Protein Ql (U) Negative [facility] No Panel InformationOrdered By: Moose Lawrence on 10-18-2024 Urine Leukocytes Positive [facility] Urine Non-Hemolyzed Blood Negative [facility] Urgent Care Visit Reporton 0 10-18-2024 Urgent Care Visit Report [facility] [address], [address] [place] [address] OFFICE VISIT Date of Service: 10/18/24 MR#: [id number] Acct: [id number] Name: EDER SEVERINO Rep #: [id number] : 1945 Provider: DEREK Cha Age/Sex: 79/F Location: [facility] Status: Signed Intake Vital Signs 09/15/24 09:52 [...] urgency. X 4 or 5 days. Tried Adarsh [facility] Medical History (Updated 09/20/24 @ 00:00 by [...] History (R (more content not included)... Normal [facility] Urine cultureOrdered By: Noah Lawrence on 10-18-2024 Bacteria identified Cx Nom (U) Escherichia coli Abnormal [facility] CNOVSPon 10-12-2024 CNOVSP Visit (SP) Office (HEMAWS) EDER SEVERINO ([id number]) 1945 F Date Time Provider Department 10/12/24 [...] receptors were positive (greater than 95%, strong) [place] positive (greater than 95%, moderate and HER-2 [...] which included preparing to see the patient, [id number] patient care, completing clinical documentation, obtaining and/or [...] Comment: Speci men Type: BLOOD SPECIMENOrdering Facility: [facility] Address: [address] [place] [address] Result Comment: The Alpha-Fetoprotein test was performed using the Sondra Unicel DxI immunoenzymatic assay. Results obtained with different assay methods or kits cannot be used interchangeably. Performed By: #### 1 834-1 ####[facility] LABCLIA [id number] [place] [address] [place] CBC W Auto Differential pane l (Bld)on 10-11-2024 Basophils (Bld) [#/Vol] 0.07 10*3/uL Normal <0.11 [facility] Comment on above: Order Comment: Speci men Type: BLOOD SPECIMENOrdering Facility: [facility] Address: [address] [place] [address] Performed By: #### 5 7021-8 ####[facility] [id number] [place] [address] [place] Basophils/100 WBC (Bld) 1.3 % Normal [facility] Comment on above: Order Comment: Speci men Type: BLOOD SPECIMENOrdering Facility: [facility] Address: [address] [place] [address] Performed By: #### 5 7021-8 ####[facility]USWNCLIA [id number] [place] [address] [place] Differential cell count method Nom (Bld) Auto Normal [facility] Comment on above: Order Comment: Speci men Type: BLOOD SPECIMENOrdering Facility: [facility] Address: [address] [place] [address] Performed By: #### 5 7021-8 ####[facility]ITALNCLIA [id number] [place] [id number] [place] Eosinophils (Bld) [#/Vol] 0.10 10*3/uL Normal <0.46 [facility] Comment on above: Order Comment: Speci men Type: BLOOD SPECIMENOrdering Facility: [facility] Address: [address] [place] [address] Performed By: #### 5 7021-8 ####[facility] [id number] [place] [address] [place] Eosinophils/100 WBC (Bld) 1.9 % Normal [facility] Comment on above: Order Comment: Speci men Type: BLOOD SPECIMENOrdering Facility: [facility] Address: [address] [place] [address] Performed By: #### 5 7021-8 ####[facility]ITALNC[facility] [id number] [place] [address] [place] Erythrocyte distribution width (RBC) [Ratio] 12.8 % Normal 11.5-15.0 [facility] Comment on above: Order Comment: Speci men Type: BLOOD SPECIMENOrdering Facility: [facility] Address: [address] [place] [address] Performed By: #### 5 7021-8 ####[facility]OSPITALNCA [id number] [place] [address] [place] Hematocrit (Bld) [Volume fraction] 42.1 % Normal 36.0-46.0 [facility] Comment on above: Order Comment: Speci men Type: BLOOD SPECIMENOrdering Facility: [facility] Address: [address] [place] [address] Performed By: #### 5 7021-8 ####[facility]ITALNCLI [id number] [place] [address] [place] Hemoglobin (Bld) [Mass/Vol] 14.4 g/dL Normal 11.5-15.5 [facility] Comment on above: Order Comment: Speci men Type: BLOOD SPECIMENOrdering Facility: [facility] Address: [address] [place] [address] Performed By: #### 5 7021-8 ####[facility] SHANIQUE [id number] [place] [address] [place] Immature granulocytes (Bld) [#/Vol] 10*3/uL Normal <0.10 [facility] Comment on above: Order Comment: Speci men Type: BLOOD SPECIMENOrdering Facility: [facility] Address: [address] [place] [address] Performed By: #### 5 7021-8 ####[facility] HOSPITALDIMITRISA [id number] [place] [address] [place] Immature granulocytes/100 WBC (Bld) 0.2 % Normal [facility] Comment on above: Order Comment: Speci men Type: BLOOD SPECIMENOrdering Facility: [facility] Address: [address] [place] [address] Performed By: #### 5 7021-8 ####[facility] [id number] [place] [address] [place] Lymphocytes (Bld) [#/Vol] 1.38 10*3/uL Normal 1.00-4.00 [facility] Comment on above: Order Comment: Speci men Type: BLOOD SPECIMENOrdering Facility: [facility] Address: [address] [place] [address] Performed By: #### 5 7021-8 ####[facility]ITALNCLIA [id number] [place] [address] [place] Lymphocytes/100 WBC (Bld) 25.8 % Normal [facility] Comment on above: Order Comment: Speci men Type: BLOOD SPECIMENOrdering Facility: [facility] Address: [address] [place] [address] Performed By: #### 5 7021-8 ####[facility]ITALNCLIA [id number] [place] [address] [place] MCH (RBC) [Entitic mass] 29.4 pg Normal 26.0-34.0 [facility] Comment on above: Order Comment: Speci men Type: BLOOD SPECIMENOrdering Facility: [facility] Address: [address] [place] [address] Performed By: #### 5 7021-8 ####[facility] HOSPITALSHAHRZADA [id number] [place] [address] [place] MCHC (RBC) [Mass/Vol] 34.2 g/dL Normal 30.5-36.0 [facility] Comment on above: Order Comment: Speci men Type: BLOOD SPECIMENOrdering Facility: [facility] Address: [address] [place] [address] Performed By: #### 5 7021-8 ####[facility] [id number] [place] [address] [place] MCV (RBC) [Entitic vol] 85.9 fL Normal 80.0-100.0 [facility] Comment on above: Order Comment: Speci men Type: BLOOD SPECIMENOrdering Facility: [facility] Address: [address] [place] [address] Performed By: #### 5 7021-8 ####[facility] [id number] [place] [address] [place] Monocytes (Bld) [#/Vol] 0.33 10*3/uL Normal <0.87 [facility] Comment on above: Order Comment: Speci men Type: BLOOD SPECIMENOrdering Facility: [facility] Address: [address] [place], [place] [address] Performed By: #### 5 7021-8 ####[facility] [id number] [place] [address] [place] Monocytes/100 WBC (Bld) 6.2 % Normal [facility] Comment on above: Order Comment: Speci men Type: BLOOD SPECIMENOrdering Facility: [facility] Address: [address] [place] [address] Performed By: #### 5 7021-8 ####[facility] HOSPITALLIA [id number] [place] [address] [place] Neutrophils (Bld) [#/Vol] 3.45 10*3/uL Normal 1.45-7.50 [facility] Comment on above: Order Comment: Speci men Type: BLOOD SPECIMENOrdering Facility: [facility] Address: [address] [place] [address] Performed By: #### 5 7021-8 ####[facility] [id number] [place] [address] [place] Neutrophils/100 WBC (Bld) 64.6 % Normal [facility] Comment on above: Order Comment: Speci men Type: BLOOD SPECIMENOrdering Facility: [facility] Address: [address] [place] [address] Performed By: #### 5 7021-8 ####[facility] [id number] [place] [address] [place] Nucleated RBC (Bld) [#/Vol] 10*3/uL Normal <0.01 [facility] Comment on above: Order Comment: Speci men Type: BLOOD SPECIMENOrdering Facility: [facility] Address: [address] [place] [address] Performed By: #### 5 7021-8 ####[facility] [id number] [place] [address] [place] Nucleated RBC/100 WBC (Bld) [Ratio] 0.0 /100 WBC Normal [facility] Comment on above: Order Comment: Speci men Type: BLOOD SPECIMENOrdering Facility: [facility] Address: [address] [place] [address] Performed By: #### 5 7021-8 ####[facility] AVELINADarleneNCYAZMIN [id number] [place] [address] [place] Platelet mean volume (Bld) [Entitic vol] 9.2 fL Normal 9.0-12.7 [facility] Comment on above: Order Comment: Speci men Type: BLOOD SPECIMENOrdering Facility: [facility] Address: [address] [place] [address] Performed By: #### 5 7021-8 ####[facility] HOSPITALNCSydnee [id number] [place] [address] [place] Platelets (Bld) [#/Vol] 198 10*3/uL Normal 150-400 [facility] Comment on above: Order Comment: Speci men Type: BLOOD SPECIMENOrdering Facility: [facility] Address: [address] [place] [address] Performed By: #### 5 7021-8 ####[facility] HOSPITALNCA [id number] [place] [address] [place] RBC (Bld) [#/Vol] 4.90 10*6/uL Normal 3.90-5.20 [facility] Comment on above: Order Comment: Speci men Type: BLOOD SPECIMENOrdering Facility: [facility] Address: [address] [place] [address] Performed By: #### 5 7021-8 ####[facility]ITALNCLIA [id number] [place] [address] [place] WBC (Bld) [#/Vol] 5.34 10*3/uL Normal 3.70-11.00 [facility] Comment on above: Order Comment: Speci men Type: BLOOD SPECIMENOrdering Facility: [facility] Address: [address] [place] [address] Performed By: #### 5 7021-8 ####[facility] MILLTOWNCLIA [id number] [place] [address] [place] Comprehensive metabolic 2000 panelon 10-11-2024 Albumin [Mass/Vol] 4.1 g/dL Normal 3.9-4.9 [facility] Comment on above: Order Comment: Speci men Type: BLOOD SPECIMENOrdering Facility: [facility] Address: [address] [place] [address] Performed By: #### 2 4323-8 ####[facility] MILLTOWNCLIA [id number] [place] [address] [place] ALP [Catalytic activity/Vol] 66 U/L Normal 34-123 [facility] Comment on above: Order Comment: Speci men Type: BLOOD SPECIMENOrdering Facility: [facility] Address: [address] [place] [address] Performed By: #### 2 4323-8 ####[facility] MILLWNCLIA [id number] [place] [address] [place] ALT [Catalytic activity/Vol] 8 U/L Normal 7-38 [facility] Comment on above: Order Comment: Speci men Type: BLOOD SPECIMENOrdering Facility: [facility] Address: [address] [place] [address] Performed By: #### 2 4323-8 ####[facility] MILLTOWNCLIA [id number] [place] [address] [place] Anion gap [Moles/Vol] 12 mmol/L Normal 8-15 [facility] Comment on above: Order Comment: Speci men Type: BLOOD SPECIMENOrdering Facility: [facility] Address: [address] [place] [address] Performed By: #### 2 4323-8 ####[facility] MILLTOWNCLIA [id number] [place] [address] [place] AST [Catalytic activity/Vol] 14 U/L Normal 13-35 [facility] Comment on above: Order Comment: Speci men Type: BLOOD SPECIMENOrdering Facility: [facility] Address: [address] [place] [address] Performed By: #### 2 4323-8 ####[facility] AURORANORTHWESTERN MEDICAL CENTERWNCLIA [id number] [place] [address] [place] Bilirubin [Mass/Vol] 0.6 mg/dL Normal 0.2-1.3 [facility] Comment on above: Order Comment: Speci men Type: BLOOD SPECIMENOrdering Facility: [facility] Address: [address] [place] [address] Performed By: #### 2 4323-8 ####[facility]ITALNCLIA [id number] [place] [address] [place] Calcium [Mass/Vol] 9.7 mg/dL Normal 8.5-10.2 [facility] Comment on above: Order Comment: Speci men Type: BLOOD SPECIMENOrdering Facility: [facility] Address: [address] [place] [address] Performed By: #### 2 4323-8 ####[facility]OS[facility]ITALNCLIA [id number] [place] [address] [place] Chloride [Moles/Vol] 102 mmol/L Normal 98-107 [facility] Comment on above: Order Comment: Speci men Type: BLOOD SPECIMENOrdering Facility: [facility] Address: [address] [place] [address] Performed By: #### 2 4323-8 ####[facility] MILLWNCLIA [id number] [place] [address] [place] CO2 [Moles/Vol] 23 mmol/L Normal 22-30 [facility] Comment on above: Order Comment: Speci men Type: BLOOD SPECIMENOrdering Facility: [facility] Address: [address] [place] [address] Performed By: #### 2 4323-8 ####[facility] AVELINABRICELYNMACK [id number] [place] [address] [place] Creatinine [Mass/Vol] 0.65 mg/dL Normal 0.58-0.96 [facility] Comment on above: Order Comment: Speci men Type: BLOOD SPECIMENOrdering Facility: [facility] Address: [address] [place] [address] Performed By: #### 2 4323-8 ####[facility]ITALNC[facility] [id number] [place] [address] [place] eGFRcr SerPlBld CKD-EPI 2020 89 mL/min/1.73m??? Normal >=60 [facility] Comment on above: Order Comment: Speci men Type: BLOOD SPECIMENOrdering Facility: [facility] Address: [address] [place] [address] Result Comment: Sara mated Glomerular Filtration Rate [...] actual GFR. Performed By: #### 2 4323-8 ####[facility]OS[facility]ITALNCLIA [id number] [place] [address] [place] Glucose [Mass/Vol] 124 mg/dL High 74-99 [facility] Comment on above: Order Comment: Speci men Type: BLOOD SPECIMENOrdering Facility: [facility] Address: [address] [place] [address] Result Comment: The [place] Diabetes Association (ADA) provides guidance for cutoff [...] Standards of Medical Care in Diabetes 2016, [place] [employer] Association. Diabetes Care. 2016.39(Suppl 1). Performed By: #### 2 4323-8 ####[facility] PAL[facility] CAMPUSWDCLIA [id number] [place] [address] [place] Potassium [Moles/Vol] 3.8 mmol/L Normal 3.7-5.1 [facility] Comment on above: Order Comment: Speci men Type: BLOOD SPECIMENOrdering Facility: [facility] Address: [address] [place] [address] Performed By: #### 2 4323-8 ####[facility] [id number] [place] [address] [place] Protein [Mass/Vol] 6.3 g/dL Normal 6.3-8.0 [facility] Comment on above: Order Comment: Speci men Type: BLOOD SPECIMENOrdering Facility: [facility] Address: [address] [place] [address] Performed By: #### 2 4323-8 ####[facility] HOSPITALLIA [id number] [place] [address] [place] Sodium [Moles/Vol] 137 mmol/L Normal 136-144 [facility] Comment on above: Order Comment: Speci men Type: BLOOD SPECIMENOrdering Facility: [facility] Address: [address] [place] [address] Performed By: #### 2 4323-8 ####[facility]OSPITALLIA [id number] [place] [address] [place] Urea nitrogen [Mass/Vol] 13 mg/dL Normal 7-21 [facility] Comment on above: Order Comment: Speci men Type: BLOOD SPECIMENOrdering Facility: [facility] Address: [address] [place] [address] Performed By: #### 2 4323-8 ####[facility] MILLTONCLIA [id number] [place] [address] [place] Ferritin SerPl-mCncon 2024 Ferritin [Mass/Vol] 32.3 ng/mL Normal 14.7-205.1 [facility] Comment on above: Order Comment: Speci men Type: BLOOD SPECIMENOrdering Facility: [facility] Address: [address] [place] [address] Performed By: #### 5 0190-8, 2275- ####[facility] LABCLIA [id number] [place] [address] [place] Iron and Iron binding capaci ty panelon 10-11-2024 Iron [Mass/Vol] 86 ug/dL Normal 41-186 [facility] Comment on above: Order Comment: Speci men Type: BLOOD SPECIMENOrdering Facility: [facility] Address: [address] [place] [address] Performed By: #### 5 0190-8, 2275- ####[facility] LABCLIA [id number] [place] [address] [place] Iron binding capacity [Mass/Vol] 333 ug/dL Normal 232-386 [facility] Comment on above: Order Comment: Speci men Type: BLOOD SPECIMENOrdering Facility: [facility] Address: [address] [place] [address] Performed By: #### 5 0190-8, 2275- ####[facility] LABCLIA [id number] [place] [address] [place] Iron/TIBC [Molar ratio] 25.8 % Normal 15.0-57.0 [facility] Comment on above: Order Comment: Speci men Type: BLOOD SPECIMENOrdering Facility: [facility] Address: [address] [place] [address] Performed By: #### 5 0190-8, 2276-4 ####[facility] LABCLIA [id number] [place] [address] [place] MR/BMS.IMBon 09-15-2024 MR/BMS.IMB [facility] [address] [place] [address] OFFICE VISIT Date of Service: 09/15/24 MR#: [id number] Acct: [id number] Name: EDER SEVERINO Rep #: [id number] : 1945 Provider: Dr. Katarina dias MD Age/Sex: 79/F [facility] Status: Signed Intake Vital Signs 09/12/24 08:36 [...] Delivery Method room air Intake Visit Reasons: [facility] ER FU Chief Complaint: [facility] FU Solutions Specialist Required: No Accompanied by: Is patient in [...] History Smoking (more content not included)... Normal [facility] Chest PA and Lateralon 09-12 Chest PA and Lateral [facility] Imaging Services [address] [place], [place] [id number] Chest PA and Lateral MR#: [id number] Acct: [id number] Name: EDER SEVERINO Rep #: [id number] : 1945 F 79 From: Jensen Deal MD PCP: Dr. Katarina Medina MD Status: [facility] ER Study: Chest PA and Lateral Date of Exam: 09/12/24 Exam# [id number] Ordering Dr: Nathanael Bowers DO PROCEDURE: CHEST [...] evidence of acute cardiopulmonary pathology. Reading Location: CEO-DICVOA-VT CC: Dr. Nathanael Bowers DO; Dr. Katarina Medina MD Computer Repair Technician: Signed Normal [facility] Emergency Department Summary on 09-12-2024 Emergency Department Summary [facility] Medical Records Department [address] [place] [address] Emergency Department Summary 09/12/24 MR#: [id number] Acct: [id number] Name: EDER SEVERINO Rep #: [id number] : 1945 79 From: Nathanael Bowers DO PCP: Dr. 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 She denies any fever, chills, shortness of [...] intact Psych: Cooperative, appropriate mood and affect [facility] Medical History History of thyroid nodule Secondary [...] 09/12/24 08:36 (more content not included)... Normal [facility] Knee 4 or More Viewson 09-12 Knee 4 or More Views [facility] Imaging Services [address] [address] Knee 4 or More Views MR#: [id number] Acct: [id number] Name: EDER SEVERINO Rep #: [id number] : 1945 F 79 From: Jensen Deal MD PCP: Dr. 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 Reading Location: [id number] CC: Dr. Nathanael Bowers DO; Dr. Katarina Medina MD Computer Repair Technician: Signed Normal [facility] Urgent Care Visit Reporton 0 09-01-2024 Urgent Care Visit Report [facility] [address] [facility] [address], [address] [place] [address] OFFICE VISIT Date of Service: 09/01/24 MR#: [id number] Acct: [id number] Name: EDER SEVERINO Rep #: [id number] : 1945 Provider: DEREK Cha Age/Sex: 79/F Location: [facility] Status: Signed Intake Vital Signs 07/20/24 14:05 09/01/24 16:20 Height 5 ft 5 in BP 124/80 H Blood Pressure Location Rt brachial Position Sitting Respiration 16 Pulse 61 Pulse Source NIBP Temp 98.2 F Temp Source Oral Pulse Oximetry (%) 97 Intake Visit Reasons: CONGESTION, SINUS, THROAT BLOCKAGE Chief Complaint: Mucus in throat Solutions Specialist Required: No Accompanied by: Is patient in [...] administering eye drops. Started 5 weeks ago. [facility] Medical History History of thyroid nodule Secondary [...] Chief Complaint: Mucus in throat Details: EDER SEVERINO, is a 79 F [...] told to stop the drops by her title clerk automobile 2 weeks ago for a week to see if the symptoms subsided which they did only minimally then restarted and worsened once again therefore patient has not been using her drops over the last 3 days but she has not told her title clerk automobile about the last 3 days. She notes (more content not included)... Normal [facility] 25(OH)D3 [facility] 2024 25-hydroxyvitamin D3 [Mass/Vol] 72.3 ng/mL Normal 31.0-80.0 [facility] Comment on above: Order Comment: Speci men Type: BLOOD SPECIMENOrdering Facility: [facility] Address: [address] [place] [address] Performed By: #### 1 989-3 ####[facility] [id number] [place] [id number] [place] CNPCassie 08-27-2024 CNPN Telephone (HEMAWS) EDER SEVERINO ([id number]) 1945 F Date Time Provider Department 08/27/24 LUIS RON During your visit today, we recorded the following information about you: Angie Seth LPN 08/27/2024 9:33 AM Signed Pt walks in to office currently schedules phlebo every 3 months. She is experiencing an increase in her brain fog. She states she recently saw Dr Fletcher who thought she should speak to you [...] once daily. - OTC PRODUCT [place]- r/t [facility] study - MAGNESIUM ORAL Take 300 mg [...] Visit Repor ton 07-30-2024 Gastroenterology Visit Report [facility] Gastroenterology [address] [place] [address] OFFICE VISIT Date of Service: 07/30/24 MR#: [id number] Acct: [id number] Name: EDER SEVERINO Rep #: [id number] : 1945 Provider: Pascual Fletcher DO Age/Sex: 79/F Location[facility] Status: Signed Intake Vital Signs 06/30/24 14:34 [...] Pt her (more content not included)... Normal [facility] YUSEF + Protein Elect, Serumon 07-20-2024 Albumin [Mass/Vol] 3.8 g/dL Normal 2.9-4.4 [facility] Comment on above: Order Comment: Y Performed By: #### L 3100.3425, L100.0100, L500.4050, L300.3900, L503.5510 ####[facility] [address] [place], [address] Albumin/Globulin [Mass ratio] 1.4 {ratio} Normal 0.7-1.[address] [facility] Comment on above: Order Comment: Y Performed By: #### L 3100.3425, L100.0100, L500.4050, L300.3900, L503.5510 ####[facility] [address] [place], [address] VINUE-0-KDZY 0.3 g/dL Normal 0.0-0.[address] [facility] Comment on above: Order Comment: Y Performed By: #### L 3100.3425, L100.0100, L500.4050, L300.3900, L503.5510 ####[facility] [address] [place], [address] DAGCU-4-DJLV 0.8 g/dL Normal 0.4-1.[address] [facility] Comment on above: Order Comment: Y Performed By: #### L 3100.3425, L100.0100, L500.4050, L300.3900, L503.5510 ####[facility] [address] [place], [address] BETA GLOBULIN 1.0 g/dL Normal 0.7-1.[address] [facility] Comment on above: Order Comment: Y Performed By: #### L 3100.3425, L100.0100, L500.4050, L300.3900, L503.5510 ####[facility] [address] [place], [address] GAMMA GLOBULIN 0.7 g/dL Normal 0.4-1.[address] [facility] Comment on above: Order Comment: Y Performed By: #### L 3100.3425, L100.0100, L500.4050, L300.3900, L503.5510 ####[facility] [address] [place], [address] Globulin (S) [Mass/Vol] 2.8 g/dL Normal 2.2-3.9 [facility] Comment on above: Order Comment: Y Performed By: #### L 3100.3425, L100.0100, L500.4050, L300.3900, L503.5510 ####[facility] [address] [place], [address] YUSEF RESULT,S Comment Normal . [facility] Comment on above: Order Comment: Y Result Comment: No m onoclonality detected. Performed By: #### L 3100.3425, L100.0100, L500.4050, L300.3900, L503.5510 ####[facility] [address] [place], [address] IMMUNOGLOB A QN 60 mg/dL Low 64-[address] [facility] Comment on above: Order Comment: Y Performed By: #### L 3100.3425, L100.0100, L500.4050, L300.3900, L503.5510 ####[facility] [address] [place], [address] IMMUNOGLOB G QN 716 mg/dL Normal 586-[address] [facility] Comment on above: Order Comment: Y Performed By: #### L 3100.3425, L100.0100, L500.4050, L300.3900, L503.5510 ####[facility] [address] [place], [address] IMMUNOGLOB M QN 31 mg/dL Normal 26-[address] [facility] Comment on above: Order Comment: Y Performed By: #### L 3100.3425, L100.0100, L500.4050, L300.3900, L503.5510 ####[facility] [address] [place], [address] M-Jose Not Observed Normal Not Observed [facility] Comment on above: Order Comment: Y Performed By: #### L 3100.3425, L100.0100, L500.4050, L300.3900, L503.5510 ####[facility] [address] [place], [address] NOTE: Comment Normal . [facility] Comment on above: Order Comment: Y Result Comment: Prot ein electrophoresis scan will follow via computer, mail, or paint line supervisor delivery. Performed at: [address], [place], [place] [id number] Cancer Genetic Counselor: Juanito Boone PhD, Phone: [phone] Performed By: #### L 3100.3425, L100.0100, L500.4050, L300.3900, L503.5510 ####[facility] [address] [place], [place], [id number] Protein [Mass/Vol] 6.6 g/dL Normal 6.0-8.5 [facility] Comment on above: Order Comment: Y Performed By: #### L 3100.3425, L100.0100, L500.4050, L300.3900, L503.5510 ####[facility] [address] [place], [place], [id number] CBC W Auto Differential pane l (Bld)on 07-19-2024 Basophils (Bld) [#/Vol] 0.06 10*3/uL Normal <0.11 [facility] Comment on above: Order Comment: Speci men Type: BLOOD SPECIMENOrdering Facility: [facility] Address: [address] [place], [place] [address] Performed By: #### 5 7021-8 ####[facility] HOSPITALNCLI [id number] [place] [address] [place] Basophils/100 WBC (Bld) 1.2 % Normal [facility] Comment on above: Order Comment: Speci men Type: BLOOD SPECIMENOrdering Facility: [facility] Address: [address] [place] [address] Performed By: #### 5 7021-8 ####[facility]ITALNCLIA [id number] [place] [address] [place] Differential cell count method Nom (Bld) Auto Normal [facility] Comment on above: Order Comment: Speci men Type: BLOOD SPECIMENOrdering Facility: [facility] Address: [address] [place] [address] Performed By: #### 5 7021-8 ####[facility] HOSPITALMACK [id number] [place] [address] [place] Eosinophils (Bld) [#/Vol] 0.11 10*3/uL Normal <0.46 [facility] Comment on above: Order Comment: Speci men Type: BLOOD SPECIMENOrdering Facility: [facility] Address: [address] [place] [address] Performed By: #### 5 7021-8 ####[facility] [id number] [place] [address] [place] Eosinophils/100 WBC (Bld) 2.1 % Normal [facility] Comment on above: Order Comment: Speci men Type: BLOOD SPECIMENOrdering Facility: [facility] Address: [address] [place] [address] Performed By: #### 5 7021-8 ####[facility] HOSPITALDIMITRISSydnee [id number] [place] [address] [place] Erythrocyte distribution width (RBC) [Ratio] 12.6 % Normal 11.5-15.0 [facility] Comment on above: Order Comment: Speci men Type: BLOOD SPECIMENOrdering Facility: [facility] Address: [address] [place] [address] Performed By: #### 5 7021-8 ####[facility] ERA [id number] [place] [address] [place] Hematocrit (Bld) [Volume fraction] 43.9 % Normal 36.0-46.0 [facility] Comment on above: Order Comment: Speci men Type: BLOOD SPECIMENOrdering Facility: [facility] Address: [address] [place] [address] Performed By: #### 5 7021-8 ####[facility] MILLWNCLIA [id number] [place] [address] [place] Hemoglobin (Bld) [Mass/Vol] 14.9 g/dL Normal 11.5-15.5 [facility] Comment on above: Order Comment: Speci men Type: BLOOD SPECIMENOrdering Facility: [facility] Address: [address] [place] [address] Performed By: #### 5 7021-8 ####[facility] CAMPUSWDCLIA [id number] [place] [address] [place] Immature granulocytes (Bld) [#/Vol] 10*3/uL Normal <0.10 [facility] Comment on above: Order Comment: Speci men Type: BLOOD SPECIMENOrdering Facility: [facility] Address: [address] [place] [address] Performed By: #### 5 7021-8 ####[facility] HOSPITALLIA [id number] [place] [address] [place] Immature granulocytes/100 WBC (Bld) 0.2 % Normal [facility] Comment on above: Order Comment: Speci men Type: BLOOD SPECIMENOrdering Facility: [facility] Address: [address] [place] [address] Performed By: #### 5 7021-8 ####[facility] HOSPITALLIA [id number] [place] [address] [place] Lymphocytes (Bld) [#/Vol] 1.30 10*3/uL Normal 1.00-4.00 [facility] Comment on above: Order Comment: Speci men Type: BLOOD SPECIMENOrdering Facility: [facility] Address: [address] [place] [address] Performed By: #### 5 7021-8 ####[facility] HOSPITALNCLIA [id number] [place] [address] [place] Lymphocytes/100 WBC (Bld) 25.1 % Normal [facility] Comment on above: Order Comment: Speci men Type: BLOOD SPECIMENOrdering Facility: [facility] Address: [address] [place] [address] Performed By: #### 5 7021-8 ####[facility] [id number] [place] [address] [place] MCH (RBC) [Entitic mass] 29.6 pg Normal 26.0-34.0 [facility] Comment on above: Order Comment: Speci men Type: BLOOD SPECIMENOrdering Facility: [facility] Address: [address] [place] [address] Performed By: #### 5 7021-8 ####[facility] [id number] [place] [address] [place] MCHC (RBC) [Mass/Vol] 33.9 g/dL Normal 30.5-36.0 [facility] Comment on above: Order Comment: Speci men Type: BLOOD SPECIMENOrdering Facility: [facility] Address: [address] [place] [address] Performed By: #### 5 7021-8 ####[facility] [id number] [place] [address] [place] MCV (RBC) [Entitic vol] 87.1 fL Normal 80.0-100.0 [facility] Comment on above: Order Comment: Speci men Type: BLOOD SPECIMENOrdering Facility: [facility] Address: [address] [place], [place] [id number] Performed By: #### 5 7021-8 ####[facility] [id number] [place] [address] [place] Monocytes (Bld) [#/Vol] 0.32 10*3/uL Normal <0.87 [facility] Comment on above: Order Comment: Speci men Type: BLOOD SPECIMENOrdering Facility: [facility] Address: [address] [place] [address] Performed By: #### 5 7021-8 ####[facility] HOSPITALMACK [id number] [place] [address] [place] Monocytes/100 WBC (Bld) 6.2 % Normal [facility] Comment on above: Order Comment: Speci men Type: BLOOD SPECIMENOrdering Facility: [facility] Address: [address] [place] [address] Performed By: #### 5 7021-8 ####[facility] [id number] [place] [address] [place] Neutrophils (Bld) [#/Vol] 3.38 10*3/uL Normal 1.45-7.50 [facility] Comment on above: Order Comment: Speci men Type: BLOOD SPECIMENOrdering Facility: [facility] Address: [address] [place] [address] Performed By: #### 5 7021-8 ####[facility] [id number] [place] [address] [place] Neutrophils/100 WBC (Bld) 65.2 % Normal [facility] Comment on above: Order Comment: Speci men Type: BLOOD SPECIMENOrdering Facility: [facility] Address: [address] [place] [address] Performed By: #### 5 7021-8 ####[facility] [id number] [place] [address] [place] Nucleated RBC (Bld) [#/Vol] 10*3/uL Normal <0.01 [facility] Comment on above: Order Comment: Speci men Type: BLOOD SPECIMENOrdering Facility: [facility] Address: [address] [place] [address] Performed By: #### 5 7021-8 ####[facility] LIZZIENCLIA [id number] [place] [address] [place] Nucleated RBC/100 WBC (Bld) [Ratio] 0.0 /100 WBC Normal [facility] Comment on above: Order Comment: Speci men Type: BLOOD SPECIMENOrdering Facility: [facility] Address: [address] [place] [address] Performed By: #### 5 7021-8 ####[facility]OSPITALDIMITRISLIA [id number] [place] [address] [place] Platelet mean volume (Bld) [Entitic vol] 9.6 fL Normal 9.0-12.7 [facility] Comment on above: Order Comment: Speci men Type: BLOOD SPECIMENOrdering Facility: [facility] Address: [address] [place] [address] Performed By: #### 5 7021-8 ####[facility] [id number] [place] [address] [place] Platelets (Bld) [#/Vol] 207 10*3/uL Normal 150-400 [facility] Comment on above: Order Comment: Speci men Type: BLOOD SPECIMENOrdering Facility: [facility] Address: [address] [place] [address] Performed By: #### 5 7021-8 ####[facility] HOSPITALDIMITRISLIA [id number] [place] [address] [place] RBC (Bld) [#/Vol] 5.04 10*6/uL Normal 3.90-5.20 [facility] Comment on above: Order Comment: Speci men Type: BLOOD SPECIMENOrdering Facility: [facility] Address: [address] [place] [address] Performed By: #### 5 7021-8 ####[facility]ITALNCLIA [id number] [place] [address] [place] WBC (Bld) [#/Vol] 5.18 10*3/uL Normal 3.70-11.00 [facility] Comment on above: Order Comment: Speci men Type: BLOOD SPECIMENOrdering Facility: [facility] Address: [address] [place] [address] Performed By: #### 5 7021-8 ####[facility] [id number] [place] [address] [place] Ferritin SerPl-mCncon 2024 Ferritin [Mass/Vol] 39.5 ng/mL Normal 14.7-205.1 [facility] Comment on above: Order Comment: Speci men Type: BLOOD SPECIMENOrdering Facility: [facility] Address: [address] [place] [address] Performed By: #### 2 276-4 ####[facility] LABCLIA [id number] [address] [place] Absolute lymphocyte countOrd ered By: Pascual Fletcher on 07-16-2024 Lymphocytes Auto (Unsp spec) [#/Vol] 1.31 10*3/uL 0.83-4.[address] [facility] Absolute neutrophil countOrd ered By: Pascual Fletcher on 07-16-2024 Neutrophils (Bld) [#/Vol] 4.1 10*3/uL 2.0-7.[address] [facility] Albumin Elph [Mass/Vol]Order ed By: Pascual Fletcher on 07-16-2024 Albumin [Mass/Vol] 3.8 g/dL 2.9-4.4 [facility] Anion gap in Serum or Plasma Ordered By: Pascual Fletcher on 07-16-2024 Anion gap [Moles/Vol] 13 mmol/L 5-15 [facility] Automated lymphocyte count a s percentage of total leukocytesOrdered By: Pascual Fletcher on 07-16-2024 Lymphocytes/100 WBC Auto (Unsp spec) 22.0 % 19-[address] [facility] BUN/creatinine ratioOrdered By: Pascual Fletcher on 07-16-2024 Urea nitrogen/Creatinine [Mass ratio] 19.0 mg/mg 10-[address] [facility] Basophil percentageOrdered B y: Pascual Fletcher on 07-16-2024 Basophils/100 WBC (Bld) 1.0 % 0-1 [facility] Bilirubin, totalOrdered By: Pascual Fletcher on 07-16-2024 Bilirubin [Mass/Vol] 0.65 mg/dL Normal 0.00-1.30 [facility] Comment on above: Performed By: #### L 3100.3425, L100.0100, L500.4050, L300.3900, L503.5510 ####[facility] [address] [place], [address] CBC W/Diff, Automatedon PLT EST A Normal ADEQ [facility] Comment on above: Performed By: #### L 3100.3425, L100.0100, L500.4050, L300.3900, L503.5510 ####[facility] [address] [place], [place], [id number] PLT MORPH CLUMPED Normal [facility] Comment on above: Performed By: #### L 3100.3425, L100.0100, L500.4050, L300.3900, L503.5510 ####[facility] [address] [place], [address] Carbon dioxide, total [Moles /volume] in Central venous bloodOrdered By: Pascual Fletcher on 07-16-2024 CO2 [Moles/Vol] 20.8 mmol/L Low 21.0-32.[address] [facility] Comment on above: Performed By: #### L 3100.3425, L100.0100, L500.4050, L300.3900, L503.5510 ####[facility] [address] [place], [place], [address] Chloride assayOrdered By: Ra subhash Fletcher on 07-16-2024 Chloride [Moles/Vol] 102 mmol/L Normal 98-108 [facility] Comment on above: Performed By: #### L 3100.3425, L100.0100, L500.4050, L300.3900, L503.5510 ####[facility] [address] [place], [address] Comprehensive Metabolic Prof ilon 07-16-2024 ALK PHOS 73 U/L Normal 35-[address] [facility] Comment on above: Performed By: #### L 3100.3425, L100.0100, L500.4050, L300.3900, L503.5510 ####[facility] [address] [place], [address] BUN/CRE 19.0 RATIO Normal 10-[address] [facility] Comment on above: Performed By: #### L 3100.3425, L100.0100, L500.4050, L300.3900, L503.5510 ####[facility] [address] [place], [address] GAP 13 Normal 5-[address] [facility] Comment on above: Performed By: #### L 3100.3425, L100.0100, L500.4050, L300.3900, L503.5510 ####[facility] [address] [place], [address] Globulin (S) [Mass/Vol] 2.6 g/dL Normal 2.2-4.2 [facility] Comment on above: Performed By: #### L 3100.3425, L100.0100, L500.4050, L300.3900, L503.5510 ####[facility] [address] [place], [address] Potassium [Moles/Vol] 4.2 mmol/L Normal 3.3-5.1 [facility] Comment on above: Result Comment: Hemo lysis present, Results??could be affected. ?? Performed By: #### L 3100.3425, L100.0100, L500.4050, L300.3900, L503.5510 ####[facility] [address] [place], [place], [address](425) T PROT 6.8 g/dL Normal 5.9-8.[address] [facility] Comment on above: Performed By: #### L 3100.3425, L100.0100, L500.4050, L300.3900, L503.5510 ####[facility] [address] [place], [address] Comprehensive Metabolic Prof ilOrdered By: Pascual Fletcher on 07-16-2024 AST [Catalytic activity/Vol] 22 U/L Normal <=[address] [facility] Comment on above: Hemolysis present, R esults could be affected. Result Comment: Hemo lysis present, Results??could be affected. ?? Performed By: #### L 3100.3425, L100.0100, L500.4050, L300.3900, L503.5510 ####[facility] [address] [place], [place], [phone] Eosinophil percentageOrdered By: Pascual Fletcher on 07-16-2024 Eosinophils/100 WBC (Bld) 1.0 % 0-[address] [facility] Erythrocyte distribution wid th ratioOrdered By: Pascual Fletcher on 07-16-2024 Erythrocyte distribution width (RBC) [Ratio] 12.4 % 11.6-14.[address] [facility] Erythrocyte distribution wid th standard deviationOrdered By: Pascualethel Fletcher on 07-16-2024 Erythrocyte distribution width (RBC) [Ratio] 39.8 fl 35.1-43.[address] [facility] Gastroenterology Visit Repor ton 07-16-2024 Gastroenterology Visit Report [facility] Gastroenterology [address] [place] [address] OFFICE VISIT Date of Service: 07/16/24 MR#: [id number] Acct: [id number] Name: EDER SEVERINO Rep #: [id number] : 1945 Provider: Pascual Fletcher DO Age/Sex: 79/F [facility] Status: Signed Intake Vital Signs 06/30/24 14:34 [...] the patie (more content not included)... Normal [facility] Glomerular filtration rate ( GFR) estimation/1.73 sq m using serum, plasma, or whole bOrdered By: Pascual Fletcher on 07-16-2024 GFR/1.73 sq M.predicted among non-blacks MDRD (S/P/Bld) [Vol rate/Area] 79 mL/min/{1.73_m2} Normal >[address] [facility] Comment on above: mL/min/1.73m2 CKD-EP I Creatinine Equation (2020) Result Comment: mL/m in/1.73m2 CKD-EPI Creatinine Equation (2020) Performed By: #### L 3100.3425, L100.0100, L500.4050, L300.3900, L503.5510 ####[facility] [address] [place], [address] Hematocrit Auto (Bld) [Volum e fraction]Ordered By: Pascual Fletcher on 07-16-2024 Hematocrit (Bld) [Volume fraction] 47.1 % High 37-[address] [facility] Hemoglobin measurementOrdere d By: Pascual Fletcher on 07-16-2024 Hemoglobin (Bld) [Mass/Vol] 15.9 g/dL High 12.0-15.[address] [facility] Immature granulocytes/100 WB C Auto (Bld)Ordered By: Pascual Fletcher on 07-16-2024 Immature granulocytes/100 WBC (Bld) 0.300 % 0.0-0.[address] [facility] Comment on above: IG% - Immature Granu locytes (promyelocytes, myelocytes and metamyelocytes) > 1% indicates that a LEFT SHIFT is Present. International normalized rat io (INR) calculationOrdered By: Pascual Fletcher on 07-16-2024 INR Coag (Bld) [Relative time] 1.0 {INR} [facility] Interpretation of serum or p lasma protein pattern by immunofixation (narrative resultOrdered By: Pascual Fletcher on 07-16-2024 Protein Fractions Immunofixation Art [Interp] Not Observed g/dL Not Observed [facility] MCV (mean corpuscular volume ) determinationOrdered By: Pascual Fletcher on 07-16-2024 MCV (RBC) [Entitic vol] 88.0 fL 81-99 [facility] Mean corpuscular hemoglobin (MCH) determinationOrdered By: Pascual Fletcher on 07-16-2024 MCH (RBC) [Entitic mass] 29.7 pg 27.0-32.[address] [facility] Mean corpuscular hemoglobin concentration (MCHC) determinationOrdered By: Pascual Fletcher on 07-16-2024 MCHC (RBC) [Mass/Vol] 33.8 g/dL 32-36 [facility] Mean platelet volume determi nationOrdered By: Pascual Fletcher on 07-16-2024 Platelet mean volume (Bld) [Entitic vol] 10.5 fL 6.2-12.[address] [facility] Monocyte percentageOrdered B y: Pascual Fletcher on 07-16-2024 Monocytes/100 WBC (Bld) 6.5 % 0-10 [facility] Neutrophil percentageOrdered By: Pascual Fletcher on 07-16-2024 Neutrophils/100 WBC (Bld) 69.2 % 47-[address] [facility] No Panel InformationOrdered By: Pascual Fletcher on 07-16-2024 Addendum Document Comment . [facility] Comment on above: Protein electrophore sis scan will follow via computer,mail, or paint line supervisor delivery.Performed at: [address] [id number] Director: Juanito Boone PhD, Phone: [phone] Nucleated red blood cell per centageOrdered By: Pascual Fletcher on 07-16-2024 Nucleated RBC/100 WBC (Bld) [Ratio] 0 % 0-[address] [facility] Platelet countOrdered By: Ra subhash Fletcher on 07-16-2024 Platelet count TNP [facility] Comment on above: Test not performed Platelet estimateOrdered By: Pascualethel Fletcher on 07-16-2024 Platelets LM Ql (Bld) A ADEQ [facility] Platelet morphologyOrdered B y: Pascualethel Fletcher on 07-16-2024 Platelet morphology finding Nom (Bld) CLUMPED [facility] Potassium measurement (mass/ volume)Ordered By: Pascualethel Fletcher on 07-16-2024 Potassium (Unsp spec) [Mass/Vol] 4.2 mmol/L 3.3-5.[address] [facility] Comment on above: Hemolysis present, R esults could be affected. Prothrombin Time w/INRon INR Coag (PPP) [Relative time] 1.0 {INR} Normal [facility] Comment on above: Performed By: #### L 3100.3425, L100.0100, L500.4050, L300.3900, L503.5510 #### [facility] Laboratory [address] [place], [place], [phone] Prothrombin timeOrdered By: Pascual Fletcher on 07-16-2024 PT Coag (PPP) [Time] 13.1 s Normal 11.7-14.9 [facility] Comment on above: Performed By: #### L 3100.3425, L100.0100, L500.4050, L300.3900, L503.5510 #### [facility] [address] [place], [place], [address] RBC Auto (Bld) [#/Vol]Ordere d By: Pascual Fletcher on 07-16-2024 RBC (Bld) [#/Vol] 5.35 10*6/uL 4.2-5.4 [facility] Serum creatinine measurement (mass/volume)Ordered By: Pascual Fletcher on 07-16-2024 Creatinine [Mass/Vol] 0.76 mg/dL Normal 0.70-1.20 [facility] Comment on above: Performed By: #### L 3100.3425, L100.0100, L500.4050, L300.3900, L503.5510 ####[facility] [address] [place], [place], [address] Serum globulin measurement ( mass/volume)Ordered By: Pascual Fletcher on 07-16-2024 Globulin (S) [Mass/Vol] 2.8 g/dL 2.2-3.9 [facility] Serum glucose measurement (m ass/volume)Ordered By: Pascual Fletcher on 07-16-2024 Glucose [Mass/Vol] 96 mg/dL Normal 70-99 [facility] Comment on above: Performed By: #### L 3100.3425, L100.0100, L500.4050, L300.3900, L503.5510 ####[facility] [address] [place], [address] Serum or plasma IgA measurem ent (mass/volume)Ordered By: Pascual Fletcher on 07-16-2024 IgA [Mass/Vol] 60 mg/dL Low 64-[address] [facility] Serum or plasma IgG measurem ent (mass/volume)Ordered By: Pascual Fletcher on 07-16-2024 IgG [Mass/Vol] 716 mg/dL [phone] [facility] Serum or plasma alanine belle otransferase (ALT) measurementOrdered By: Pascual Fletcher on 07-16-2024 ALT [Catalytic activity/Vol] 9 U/L Normal <=[address] [facility] Comment on above: Performed By: #### L 3100.3425, L100.0100, L500.4050, L300.3900, L503.5510 ####[facility] [address] [place], [address] Serum or plasma albumin chapis urement (mass/volume)Ordered By: Pascual Fletcher on 07-16-2024 Albumin [Mass/Vol] 4.2 g/dL Normal 3.4-4.8 [facility] Comment on above: Performed By: #### L 3100.3425, L100.0100, L500.4050, L300.3900, L503.5510 ####[facility] [address] [place], [place], [phone]) Serum or plasma albumin/glob ulin mass ratioOrdered By: Pascual Fletcher on 07-16-2024 Albumin/Globulin [Mass ratio] 1.6 {ratio} Normal 0.9-2.[address] [facility] Comment on above: Performed By: #### L 3100.3425, L100.0100, L500.4050, L300.3900, L503.5510 ####[facility] [address] [place], [place], [address] Serum or plasma alkaline mary sphatase measurementOrdered By: Pascual Fletcher on 07-16-2024 ALP [Catalytic activity/Vol] 73 U/L 35-[address] [facility] Serum or plasma alpha 1 glob ulin measurement by electrophoresis (mass/volume)Ordered By: Pascual Fletcher on 07-16-2024 Alpha 1 globulin Elph [Mass/Vol] 0.3 g/dL 0.0-0.[address] [facility] Alpha 1 globulin Elph [Mass/Vol] 0.8 g/dL 0.4-1.[address] [facility] Serum or plasma beta globuli n measurement by electrophoresis (mass/volume)Ordered By: Pascual Fletcher on 07-16-2024 Beta globulin Elph [Mass/Vol] 1.0 g/dL 0.7-1.[address] [facility] Serum or plasma calcium chapis urement (mass/volume)Ordered By: Pascual Fletcher on 07-16-2024 Calcium [Mass/Vol] 9.9 mg/dL Normal 7.6-11.0 [facility] Comment on above: Performed By: #### L 3100.3425, L100.0100, L500.4050, L300.3900, L503.5510 ####[facility] [address] [place], [place], [phone] Serum or plasma gamma globul in measurement by electrophoresis (mass/volume)Ordered By: Pascual Fletcher on 07-16-2024 Gamma globulin Elph [Mass/Vol] 0.7 g/dL 0.4-1.[address] [facility] Serum or plasma immunoelectr ophoresis interpretation (nominal result)Ordered By: Pascual Fletcher on 07-16-2024 Interpretation IEP [Interp] Comment . [facility] Comment on above: No monoclonality det ected. Serum or plasma protein chapis urement (mass/volume)Ordered By: Pascual Fletcher on 07-16-2024 Protein [Mass/Vol] 6.6 g/dL 6.0-8.5 [facility] Serum or plasma urea nitroge n measurement (mass/volume)Ordered By: Pascual Fletcher on 07-16-2024 Urea nitrogen [Mass/Vol] 14 mg/dL Normal 4-[address] [facility] Comment on above: Performed By: #### L 3100.3425, L100.0100, L500.4050, L300.3900, L503.5510 ####[facility] [address] [facility] [address] [place], [place], [phone] Sodium levelOrdered By: Adria Burton on 07-16-2024 Sodium [Moles/Vol] 136 mmol/L Normal 133-145 [facility] Comment on above: Performed By: #### L 3100.3425, L100.0100, L500.4050, L300.3900, L503.5510 ####[facility] [address] [place], [place], [phone] Total proteinOrdered By: Rolf Fletcher on 07-16-2024 Protein [Mass/Vol] 6.8 g/dL 5.9-8.4 [facility] Venous blood ammonia measure mentOrdered By: Pascual Fletcher on 07-16-2024 Ammonia (P) [Moles/Vol] 29.0 umol/L Normal 11-[address] [facility] Comment on above: Performed By: #### L 3100.3425, L100.0100, L500.4050, L300.3900, L503.5510 #### [facility] [address] [place], [address] White blood cell (WBC) count Ordered By: Pascual Fletcher on 07-16-2024 WBC (Bld) [#/Vol] 6.0 10*3/uL 4.4-11.0 [facility] MR/BMS.IMBon 06-30-2024 MR/BMS.IMB [facility] [address] [place] [address] OFFICE VISIT Date of Service: 06/30/24 MR#: [id number] Acct: [id number] Name: EDER SEVERINO Rep #: [id number] : 1945 Provider: Dr. Katarina dias MD Age/Sex: 79/F Location[facility] Status: Signed Intake Vital Signs 02/11/24 08:39 [...] Intake Visit Reasons: Annual/Physical Chief Complaint: Annual/Physical Solutions Specialist Required: No Accompanied by: Is patient in [...] you part (more content not included)... Normal [facility] OCT OPTIC NERVE CIRRUS OU (B OTH EYES)on 06-16-2024 [facility] Radiology Study observation (narrative) [facility] 25(OH)D3 Glorial-mCnancy 2024 25-hydroxyvitamin D3 [Mass/Vol] 115.0 ng/mL High 31.0-80.0 [facility] Comment on above: Order Comment: Speci men Type: BLOOD SPECIMENOrdering Facility: [facility] Address: [address] [place] [address] Result Comment: Clas sification of 25 [place] Vitamin D status: Deficiency/Insufficiency: < or = 30 ng/ml. Sufficiency/Optimal Levels: 31-80 ng/mL Toxicity: > 100 ng/mL. Test performed by chemiluminescent immunoassay. Performed By: #### 1 989-3 ####[facility] LABCLIA [id number] [address] [address] [facility] CNOVon 05-27-2024 CNOV Office Visit (MEDFMN ) EDER SEVERINO ([id number]) 1945 F Date Time Provider Department 05/27/24 2:00 PM AIRAM ALVARADO [facility] During your visit today, we recorded the following information about you: Pulse Blood pressure Weight Height 68/minute 159/55 68.8 kg 1.651 m Airam Alvarado APRN.[facility] 05/27/2024 3:14 PM Signed FUNCTIONAL MEDICINE INITIAL ASSESSMENT Patient: Eder J Maycol ALLERGIES Allergen Reactions Sulfa (Sulfonamide * Anaphylaxis [place] Seed Rash Advil [Ibuprofen] Intolerance along with [...] mouth once daily. OTC PRODUCT [place]- r/t [facility] MAGNESIUM ORAL Take 300 mg by mouth [...] W/COLLJ SPEC WHEN PFRMD 2005 Colonoscopy DILATION AND CURETTAGE DXAND/THER NONOBSTETRIC Dilation [...] removal - single site surgery performed at [facility] by Dr. Castro - under thoracic epidural [...] visit today. Accompanied by . Lives in [place], [place] HPI: This is an 79yo female presenting for a functional medicine consult with complaints of: Brain fog x 1 year Sometimes good days, other days really (more content not included)... Normal [facility] CBC W Auto Differential pane l (Bld)on 04-26-2024 Basophils (Bld) [#/Vol] 0.06 10*3/uL Normal <0.11 [facility] Comment on above: Order Comment: Speci men Type: BLOOD SPECIMEN Ordering Facility: [facility] Address: [address] [place] [address] Performed By: #### 5 7021-8 #### [facility] CLIA [id number] [address] [place] [address] [place] Basophils/100 WBC (Bld) 1.2 % Normal [facility] Comment on above: Order Comment: Speci men Type: BLOOD SPECIMEN Ordering Facility: [facility] Address: [address] [place] [address] Performed By: #### 5 7021-8 #### [facility] CLIA [id number] [address] [place] [address] [place] Differential cell count method Nom (Bld) Auto Normal [facility] Comment on above: Order Comment: Speci men Type: BLOOD SPECIMEN Ordering Facility: [facility] Address: [address] [place] [address] Performed By: #### 5 7021-8 #### [facility] CLIA [id number] [address] [place] [address] [place] Eosinophils (Bld) [#/Vol] 0.09 10*3/uL Normal <0.46 [facility] Comment on above: Order Comment: Speci men Type: BLOOD SPECIMEN Ordering Facility: [facility] Address: [address] [place] [address] Performed By: #### 5 7021-8 #### [facility] CLIA [id number] [address] [place] [address] [place] Eosinophils/100 WBC (Bld) 1.8 % Normal [facility] Comment on above: Order Comment: Speci men Type: BLOOD SPECIMEN Ordering Facility: [facility] Address: [address] [place] [id number] Performed By: #### 5 7021-8 #### [facility] CLIA [id number] [address] [place] [address] [place] Erythrocyte distribution width (RBC) [Ratio] 12.3 % Normal 11.5-15.0 [facility] Comment on above: Order Comment: Speci men Type: BLOOD SPECIMEN Ordering Facility: [facility] Address: [address] [place] [address] Performed By: #### 5 7021-8 #### [facility] CLIA [id number] [address] [place] [address] [place] Hematocrit (Bld) [Volume fraction] 44.8 % Normal 36.0-46.0 [facility] Comment on above: Order Comment: Speci men Type: BLOOD SPECIMEN Ordering Facility: [facility] Address: [address] [place] [address] Performed By: #### 5 7021-8 #### [facility] CLIA [id number] [address] [place], [place] [id number] [place] Hemoglobin (Bld) [Mass/Vol] 15.6 g/dL High 11.5-15.5 [facility] Comment on above: Order Comment: Speci men Type: BLOOD SPECIMEN Ordering Facility: [facility] Address: [address] [place] [address] Performed By: #### 5 7021-8 #### [facility] CLIA [id number] [address] [place] [address] [place] Immature granulocytes (Bld) [#/Vol] 10*3/uL Normal <0.10 [facility] Comment on above: Order Comment: Speci men Type: BLOOD SPECIMEN Ordering Facility: [facility] Address: [address] [place] [address] Performed By: #### 5 7021-8 #### [facility] CLIA [id number] [address] [place] [address] [place] Immature granulocytes/100 WBC (Bld) 0.2 % Normal [facility] Comment on above: Order Comment: Speci men Type: BLOOD SPECIMEN Ordering Facility: [facility] Address: [address] [place] [address] Performed By: #### 5 7021-8 #### [facility] CLIA [id number] [address] [place] [address] [place] Lymphocytes (Bld) [#/Vol] 1.19 10*3/uL Normal 1.00-4.00 [facility] Comment on above: Order Comment: Speci men Type: BLOOD SPECIMEN Ordering Facility: [facility] Address: [address] [place] [address] Performed By: #### 5 7021-8 #### [facility] CLIA [id number] [address] [place] [address] [place] Lymphocytes/100 WBC (Bld) 23.8 % Normal [facility] Comment on above: Order Comment: Speci men Type: BLOOD SPECIMEN Ordering Facility: [facility] Address: [address] [place] [address] Performed By: #### 5 7021-8 #### [facility] CLIA [id number] [address] [place] [address] MCH (RBC) [Entitic mass] 30.3 pg Normal 26.0-34.0 [facility] Comment on above: Order Comment: Speci men Type: BLOOD SPECIMEN Ordering Facility: [facility] Address: [address] [place] [address] Performed By: #### 5 7021-8 #### [facility] [id number] [address] [place] [address] [place] MCHC (RBC) [Mass/Vol] 34.8 g/dL Normal 30.5-36.0 [facility] Comment on above: Order Comment: Speci men Type: BLOOD SPECIMEN Ordering Facility: [facility] Address: [address] [place], [place] [id number] Performed By: #### 5 7021-8 #### [facility] [id number] [address] [place] [address] [place] MCV (RBC) [Entitic vol] 87.0 fL Normal 80.0-100.0 [facility] Comment on above: Order Comment: Speci men Type: BLOOD SPECIMEN Ordering Facility: [facility] Address: [address] [place] [address] Performed By: #### 5 7021-8 #### [facility] [id number] [address] [place] [address] [place] [facility] [place] Monocytes (Bld) [#/Vol] 0.32 10*3/uL Normal <0.87 [facility] Comment on above: Order Comment: Speci men Type: BLOOD SPECIMEN Ordering Facility: [facility] Address: [address] [place] [address] Performed By: #### 5 7021-8 #### [facility] CLIA [id number] [address] [place] [address] [place] Monocytes/100 WBC (Bld) 6.4 % Normal [facility] Comment on above: Order Comment: Speci men Type: BLOOD SPECIMEN Ordering Facility: [facility] Address: [address] [place] [address] Performed By: #### 5 7021-8 #### [facility] CLIA [id number] [address] [place] [address] [place] Neutrophils (Bld) [#/Vol] 3.33 10*3/uL Normal 1.45-7.50 [facility] Comment on above: Order Comment: Speci men Type: BLOOD SPECIMEN Ordering Facility: [facility] Address: [address] [place] [address] Performed By: #### 5 7021-8 #### [facility] CLIA [id number] [address] [place] [address] [place] Neutrophils/100 WBC (Bld) 66.6 % Normal [facility] Comment on above: Order Comment: Speci men Type: BLOOD SPECIMEN Ordering Facility: [facility] Address: [address] [place] [address] Performed By: #### 5 7021-8 #### [facility] CLIA [id number] [address] [place] [address] [place] Nucleated RBC (Bld) [#/Vol] 10*3/uL Normal <0.01 [facility] Comment on above: Order Comment: Speci men Type: BLOOD SPECIMEN Ordering Facility: [facility] Address: [address] [place] [address] Performed By: #### 5 7021-8 #### [facility] CLIA [id number] [address] [place] [address] [place] Nucleated RBC/100 WBC (Bld) [Ratio] 0.0 /100 WBC Normal [facility] Comment on above: Order Comment: Speci men Type: BLOOD SPECIMEN Ordering Facility: [facility] Address: [address] [place] [address] Performed By: #### 5 7021-8 #### [facility] CLIA [id number] [address] [place] [address] [place] Platelet mean volume (Bld) [Entitic vol] 9.5 fL Normal 9.0-12.7 [facility] Comment on above: Order Comment: Speci men Type: BLOOD SPECIMEN Ordering Facility: [facility] Address: [address] [place] [address] Performed By: #### 5 7021-8 #### [facility] CLIA [id number] [address] [place] [address] [place] Platelets (Bld) [#/Vol] 188 10*3/uL Normal 150-400 [facility] Comment on above: Order Comment: Speci men Type: BLOOD SPECIMEN Ordering Facility: [facility] Address: [address] [place] [address] Performed By: #### 5 7021-8 #### [facility] CLIA [id number] [address] [place] [address] [place] RBC (Bld) [#/Vol] 5.15 10*6/uL Normal 3.90-5.20 [facility] Comment on above: Order Comment: Speci men Type: BLOOD SPECIMEN Ordering Facility: [facility] Address: [address] [place] [address] Performed By: #### 5 7021-8 #### [facility] CLIA [id number] [address] [place] [address] [place] WBC (Bld) [#/Vol] 5.00 10*3/uL Normal 3.70-11.00 [facility] Comment on above: Order Comment: Speci men Type: BLOOD SPECIMEN Ordering Facility: [facility] Address: [address] [place] [address] [place] [address] Performed By: #### 5 7021-8 #### [facility] [id number] [address] [place] [address] [place] Ferritin SerPl-mCncon 2024 Ferritin [Mass/Vol] 44.3 ng/mL Normal 14.7-205.1 [facility] Comment on above: Order Comment: Speci men Type: BLOOD SPECIMENOrdering Facility: [facility] Address: [address] [place] [address] Performed By: #### 2 276-4 ####[facility] LABORATORYCLIA [id number] [place] [id number] [place] CNOVon 04-19-2024 CNOV Office Visit ([id number] ) EDER SEVERINO ([id number]) 1945 F Date Time Provider Department 04/19/24 [...] defined for this encounter. PCP: Katarina [facility] [address] [place] [address] CEREBROVASCULAR HISTORY History of Event: I am [...] We will be getting your records from [facility] and we will let you know if [...] removal - single site surgery performed at [facility] by Dr. Castro - under thoracic epidural and sedation. STRTCTC LOCLZJ GID BREAST BX/NEEDLE PLACEMENT Right 02/16/2018 Rt stereotactic vaccuum assisted core biopsy FAMILY HISTORY (more content not included)... Normal [facility] 25([place])D3 [facility] 25-hydroxyvitamin D3 [Mass/Vol] 125.0 ng/mL High 31.0-80.0 [facility] Comment on above: Order Comment: Speci men Type: BLOOD SPECIMENOrdering Facility: [facility] Address: [address] [place] [address] Performed By: #### 1 989-3 ####[facility] LABCLIA [id number] [place] [address] [place] /Irina 02-11-2024 /DONA [facility] [address] [place] [address] OFFICE VISIT Date of Service: 02/11/24 MR#: [id number] Acct: [id number] Name: EDER SEVERINO Rep #: [id number] : 1945 Provider: Dr. Katarina dias MD Age/Sex: 78/F [facility] Status: Signed Intake Vital Signs 11/13/23 07:57 [...] M FU Chief Complaint: 4 m [employer] Specialist Required: No Accompanied by: Is patient in [...] who presen (more content not included)... Normal [facility] CBC W Auto Differential pane l (Bld)on 02-02-2024 Basophils (Bld) [#/Vol] 0.04 10*3/uL [facility] Basophils/100 WBC (Bld) 0.6 % C [facility] Differential cell count method Nom (Bld) Auto [facility] Eosinophils (Bld) [#/Vol] 0.10 10*3/uL [facility] Eosinophils/100 WBC (Bld) 1.5 % [facility] Erythrocyte distribution width (RBC) [Ratio] 12.9 % 11.5 - 15.0 % [facility] Hematocrit (Bld) [Volume fraction] 44.5 % 36.0 - 46.0 % [facility] Hemoglobin (Bld) [Mass/Vol] 15.3 g/dL 11.5 - 15.5 g/dL [facility] Immature granulocytes (Bld) [#/Vol] [facility] Immature granulocytes/100 WBC (Bld) 0.2 % [facility] Lymphocytes (Bld) [#/Vol] 1.33 10*3/uL [facility] Lymphocytes/100 WBC (Bld) 20.4 % [facility] MCH (RBC) [Entitic mass] 30.1 pg 26. 0 - 34.0 pg [facility] MCHC (RBC) [Mass/Vol] 34.4 g/dL 30.5 - 36.0 g/dL [facility] MCV (RBC) [Entitic vol] 87.6 fL 80.0 - 100.0 fL [facility] Monocytes (Bld) [#/Vol] 0.46 10*3/uL [facility] Monocytes/100 WBC (Bld) 7.0 % [facility] Neutrophils (Bld) [#/Vol] 4.59 10*3/uL [facility] Neutrophils/100 WBC (Bld) 70.3 % [facility] Nucleated RBC (Bld) [#/Vol] NINF [facility] Nucleated RBC/100 WBC (Bld) [Ratio] 0.0 % /100 WBC [facility] Platelet mean volume (Bld) [Entitic vol] 9.8 fL 9.0 - 12.7 fL [facility] Platelets (Bld) [#/Vol] 196 10*3/uL [facility] RBC (Bld) [#/Vol] 5.08 10*6/uL 3.90 - 5.2 0 m/uL [facility] WBC (Bld) [#/Vol] 6.53 10*3/uL [facility] Basophils (Bld) [#/Vol] 0.04 10*3/uL Normal <0.11 [facility] Comment on above: Order Comment: Speci men Type: BLOOD SPECIMENOrdering Facility: [facility] Address: [address] [place] [address] Performed By: #### 5 7021-8 ####[facility] [id number] [place] [address] [place] Basophils/100 WBC (Bld) 0.6 % Normal [facility] Comment on above: Order Comment: Speci men Type: BLOOD SPECIMENOrdering Facility: [facility] Address: [address] [place] [address] Performed By: #### 5 7021-8 ####[facility] [id number] [place] [address] [place] Differential cell count method Nom (Bld) Auto Normal [facility] Comment on above: Order Comment: Speci men Type: BLOOD SPECIMENOrdering Facility: [facility] Address: [address] [place] [address] Performed By: #### 5 7021-8 ####[facility] [id number] [place] [address] [place] Eosinophils (Bld) [#/Vol] 0.10 10*3/uL Normal <0.46 [facility] Comment on above: Order Comment: Speci men Type: BLOOD SPECIMENOrdering Facility: [facility] Address: [address] [place] [address] Performed By: #### 5 7021-8 ####[facility] [id number] [place] [address] [place] Eosinophils/100 WBC (Bld) 1.5 % Normal [facility] Comment on above: Order Comment: Speci men Type: BLOOD SPECIMENOrdering Facility: [facility] Address: [address] [place] [address] Performed By: #### 5 7021-8 ####[facility] [id number] [place] [address] [place] Erythrocyte distribution width (RBC) [Ratio] 12.9 % Normal 11.5-15.0 [facility] Comment on above: Order Comment: Speci men Type: BLOOD SPECIMENOrdering Facility: [facility] Address: [address] [place] [address] Performed By: #### 5 7021-8 ####[facility] [id number] [place] [address] [place] Hematocrit (Bld) [Volume fraction] 44.5 % Normal 36.0-46.0 [facility] Comment on above: Order Comment: Speci men Type: BLOOD SPECIMENOrdering Facility: [facility] Address: [address] [place] [address] Performed By: #### 5 7021-8 ####[facility] MILLWNCLIA [id number] [place] [address] [place] Hemoglobin (Bld) [Mass/Vol] 15.3 g/dL Normal 11.5-15.5 [facility] Comment on above: Order Comment: Speci men Type: BLOOD SPECIMENOrdering Facility: [facility] Address: [address] [place] [address] Performed By: #### 5 7021-8 ####[facility]ITALNCLIA [id number] [place] [address] [place] Immature granulocytes (Bld) [#/Vol] 10*3/uL Normal <0.10 [facility] Comment on above: Order Comment: Speci men Type: BLOOD SPECIMENOrdering Facility: [facility] Address: [address] [place] [address] Performed By: #### 5 7021-8 ####[facility]ITALNCLIA [id number] [place] [address] [place] Immature granulocytes/100 WBC (Bld) 0.2 % Normal [facility] Comment on above: Order Comment: Speci men Type: BLOOD SPECIMENOrdering Facility: [facility] Address: [address] [place] [address] Performed By: #### 5 7021-8 ####[facility]IT[facility] [id number] [place] [address] [place] Lymphocytes (Bld) [#/Vol] 1.33 10*3/uL Normal 1.00-4.00 [facility] Comment on above: Order Comment: Speci men Type: BLOOD SPECIMENOrdering Facility: [facility] Address: [address] [place] [address] Performed By: #### 5 7021-8 ####[facility] [id number] [place] [address] [place] Lymphocytes/100 WBC (Bld) 20.4 % Normal [facility] Comment on above: Order Comment: Speci men Type: BLOOD SPECIMENOrdering Facility: [facility] Address: [address] [place] [address] Performed By: #### 5 7021-8 ####[facility]ITALMACK [id number] [place] [address] [place] MCH (RBC) [Entitic mass] 30.1 pg Normal 26.0-34.0 [facility] Comment on above: Order Comment: Speci men Type: BLOOD SPECIMENOrdering Facility: [facility] Address: [address] [place] [address] Performed By: #### 5 7021-8 ####[facility]OS[facility]ITALNCYAZMIN [id number] [place] [address] [place] MCHC (RBC) [Mass/Vol] 34.4 g/dL Normal 30.5-36.0 [facility] Comment on above: Order Comment: Speci men Type: BLOOD SPECIMENOrdering Facility: [facility] Address: [address] [place] [address] Performed By: #### 5 7021-8 ####[facility]OSPITALNCLISydnee [id number] [place] [address] [place] MCV (RBC) [Entitic vol] 87.6 fL Normal 80.0-100.0 C [facility] Comment on above: Order Comment: Speci men Type: BLOOD SPECIMENOrdering Facility: [facility] Address: [address] [place] [address] Performed By: #### 5 7021-8 ####[facility]ITALNCLI [id number] [place] [address] [place] Monocytes (Bld) [#/Vol] 0.46 10*3/uL Normal <0.87 [facility] Comment on above: Order Comment: Speci men Type: BLOOD SPECIMENOrdering Facility: [facility] Address: [address] [place] [address] Performed By: #### 5 7021-8 ####[facility] [id number] [place] [address] [place] Monocytes/100 WBC (Bld) 7.0 % Normal [facility] Comment on above: Order Comment: Speci men Type: BLOOD SPECIMENOrdering Facility: [facility] Address: [address] [place] [address] Performed By: #### 5 7021-8 ####[facility] [id number] [place] [address] [place] Neutrophils (Bld) [#/Vol] 4.59 10*3/uL Normal 1.45-7.50 [facility] Comment on above: Order Comment: Speci men Type: BLOOD SPECIMENOrdering Facility: [facility] Address: [address] [place] [address] Performed By: #### 5 7021-8 ####[facility] [id number] [place] [address] [place] Neutrophils/100 WBC (Bld) 70.3 % Normal [facility] Comment on above: Order Comment: Speci men Type: BLOOD SPECIMENOrdering Facility: [facility] Address: [address] [place] [address] Performed By: #### 5 7021-8 ####[facility] [id number] [place] [address] [place] Nucleated RBC (Bld) [#/Vol] 10*3/uL Normal <0.01 [facility] Comment on above: Order Comment: Speci men Type: BLOOD SPECIMENOrdering Facility: [facility] Address: [address] [place] [address] Performed By: #### 5 7021-8 ####[facility] LIZZIENCLIA [id number] [place] [address] [place] Nucleated RBC/100 WBC (Bld) [Ratio] 0.0 /100 WBC Normal [facility] Comment on above: Order Comment: Speci men Type: BLOOD SPECIMENOrdering Facility: [facility] Address: [address] [place] [address] Performed By: #### 5 7021-8 ####[facility]ITALNCLIA [id number] [place] [address] [place] Platelet mean volume (Bld) [Entitic vol] 9.8 fL Normal 9.0-12.7 [facility] Comment on above: Order Comment: Speci men Type: BLOOD SPECIMENOrdering Facility: [facility] Address: [address] [place] [address] Performed By: #### 5 7021-8 ####[facility]ITALNCLIA [id number] [place] [address] [place] Platelets (Bld) [#/Vol] 196 10*3/uL Normal 150-400 [facility] Comment on above: Order Comment: Speci men Type: BLOOD SPECIMENOrdering Facility: [facility] Address: [address] [place] [address] Performed By: #### 5 7021-8 ####[facility]OSPITALL[facility] [id number] [place] [address] [place] RBC (Bld) [#/Vol] 5.08 10*6/uL Normal 3.90-5.20 [facility] Comment on above: Order Comment: Speci men Type: BLOOD SPECIMENOrdering Facility: [facility] Address: [address] [place] [address] Performed By: #### 5 7021-8 ####[facility]ITALNCLIA [id number] [place] [address] [place] WBC (Bld) [#/Vol] 6.53 10*3/uL Normal 3.70-11.00 [facility] Comment on above: Order Comment: Speci men Type: BLOOD SPECIMENOrdering Facility: [facility] Address: [facility] [place] [address] Performed By: #### 5 7021-8 ####[facility] [id number] [place], [place] [id number] [place] [address] [place] Comprehensive metabolic 2000 panelOrdered By: Wanda Eugene on 02-02-2024 Albumin [Mass/Vol] 4.2 g/dL 3.9 - 4.9 g/dL [facility] ALP [Catalytic activity/Vol] 75 U/L 34 - 123 U/L [facility] ALT [Catalytic activity/Vol] 8 U/L 7 - 38 U/L [facility] Anion gap [Moles/Vol] 9 mmol/L 8 - 15 mmol/L [facility] AST [Catalytic activity/Vol] 14 U/L 13 - 35 U/L [facility] Bilirubin [Mass/Vol] 0.6 mg/dL 0.2 - 1 .3 mg/dL [facility] Calcium [Mass/Vol] 10.0 mg/dL 8.5 - 10. 2 mg/dL [facility] Chloride [Moles/Vol] 101 mmol/L 98 - 10 7 mmol/L [facility] CO2 [Moles/Vol] 27 mmol/L 22 - 30 mmol/L [facility] Creatinine [Mass/Vol] 0.66 mg/dL 0.58 - 0.96 mg/dL [facility] GFR/1.73 sq M.predicted among non-blacks MDRD (S/P/Bld) [Vol rate/Area] 89 mL/min/{1.73_m2} - PINF [facility] Comment on above: Estimated Glomerular Filtration Rate [...] [Mass/Vol] 95 mg/dL 74 - 99 mg/dL [facility] Comment on above: The [place] Diabete s Association (ADA) provides guidance for [...] Standards of Medical Care in Diabetes 2016, [place] Diabetes Association. Diabetes Care. 2016.39(Suppl 1). Interpretation and review of laboratory results Normal [facility] Potassium [Moles/Vol] 4.0 mmol/L 3.7 - 5.1 mmol/L [facility] Protein [Mass/Vol] 6.4 g/dL 6.3 - 8.0 g/dL [facility] Sodium [Moles/Vol] 137 mmol/L 136 - 144 mmol/L [facility] Urea nitrogen [Mass/Vol] 16 mg/dL 7 - 21 mg/d L [facility] Comprehensive metabolic 2000 panelon 02-02-2024 Albumin [Mass/Vol] 4.2 g/dL Normal 3.9-4.9 [facility] Comment on above: Order Comment: Bre richards Type: BLOOD SPECIMENOrdering Facility: [facility] Address: [address] [place] [address] Performed By: #### 2 4323-8 ####[facility] [id number] [place] [address] [place] ALP [Catalytic activity/Vol] 75 U/L Normal 34-123 [facility] Comment on above: Order Comment: Bre richards Type: BLOOD SPECIMENOrdering Facility: [facility] Address: [address] [place] [address] Performed By: #### 2 4323-8 ####[facility] MILLTOWNCLIA [id number] [place] [address] [place] ALT [Catalytic activity/Vol] 8 U/L Normal 7-38 [facility] Comment on above: Order Comment: Speci men Type: BLOOD SPECIMENOrdering Facility: [facility] Address: [address] [place] [address] Performed By: #### 2 4323-8 ####[facility] MILLTOWNCLIA [id number] [place] [address] [place] Anion gap [Moles/Vol] 9 mmol/L Normal 8-15 [facility] Comment on above: Order Comment: Speci men Type: BLOOD SPECIMENOrdering Facility: [facility] Address: [address] [place] [address] Performed By: #### 2 4323-8 ####[facility] MILLWNCLIA [id number] [place] [address] [place] AST [Catalytic activity/Vol] 14 U/L Normal 13-35 [facility] Comment on above: Order Comment: Speci men Type: BLOOD SPECIMENOrdering Facility: [facility] Address: [address] [place] [address] Performed By: #### 2 4323-8 ####[facility] MILLWNCLIA [id number] [place] [address] [place] Bilirubin [Mass/Vol] 0.6 mg/dL Normal 0.2-1.3 [facility] Comment on above: Order Comment: Speci men Type: BLOOD SPECIMENOrdering Facility: [facility] Address: [address] [place] [address] Performed By: #### 2 4323-8 ####[facility] CAMPUSWNCLIA [id number] [place] [address] [place] Calcium [Mass/Vol] 10.0 mg/dL Normal 8.5-10.2 [facility] Comment on above: Order Comment: Speci men Type: BLOOD SPECIMENOrdering Facility: [facility] Address: [address] [place] [address] Performed By: #### 2 4323-8 ####[facility] CAMPUSWNCLIA [id number] [place] [address] [place] Chloride [Moles/Vol] 101 mmol/L Normal 98-107 [facility] Comment on above: Order Comment: Speci men Type: BLOOD SPECIMENOrdering Facility: [facility] Address: [address] [place] [address] Performed By: #### 2 4323-8 ####[facility] HOS[facility]ITALL[facility] [id number] [place] [address] [place] CO2 [Moles/Vol] 27 mmol/L Normal 22-30 [facility] Comment on above: Order Comment: Speci men Type: BLOOD SPECIMENOrdering Facility: [facility] Address: [address] [place] [address] Performed By: #### 2 4323-8 ####[facility] H[facility]IT[facility] [id number] [place] [address] [place] Creatinine [Mass/Vol] 0.66 mg/dL Normal 0.58-0.96 [facility] Comment on above: Order Comment: Speci men Type: BLOOD SPECIMENOrdering Facility: [facility] Address: [address] [place] [address] Performed By: #### 2 4323-8 ####[facility]ITALNCLIA [id number] [place] [address] [place] Creatinine and Glomerular filtration rate.predicted panel (S/P/Bld) 89 mL/min/1.73m??? Normal >=60 [facility] Comment on above: Order Comment: Speci men Type: BLOOD SPECIMENOrdering Facility: [facility] Address: [address] [place] [address] Result Comment: Sara mated Glomerular Filtration Rate [...] actual GFR. Performed By: #### 2 4323-8 ####[facility] [id number] [place] [address] [place] Glucose [Mass/Vol] 95 mg/dL Normal 74-99 [facility] Comment on above: Order Comment: Speci susie Type: BLOOD SPECIMENOrdering Facility: [facility] Address: [address] [place] [address] Result Comment: The [place] Diabetes Association (ADA) provides guidance for cutoff [...] Standards of Medical Care in Diabetes 2016, [place] Diabetes Association. Diabetes Care. 2016.39(Suppl 1). Performed By: #### 2 4323-8 ####[facility]ITALNCLIA [id number] [place] [address] [place] Potassium [Moles/Vol] 4.0 mmol/L Normal 3.7-5.1 [facility] Comment on above: Order Comment: Bre men Type: BLOOD SPECIMENOrdering Facility: [facility] Address: [address] [id number] Performed By: #### 2 4323-8 ####[facility] MILLTOWNCLIA [id number] [place] [address] [place] Protein [Mass/Vol] 6.4 g/dL Normal 6.3-8.0 [facility] Comment on above: Order Comment: Speci men Type: BLOOD SPECIMENOrdering Facility: [facility] Address: [address] [place] [address] Performed By: #### 2 4323-8 ####[facility] CAMPUSWNCLIA [id number] [place] [address] [place] Sodium [Moles/Vol] 137 mmol/L Normal 136-144 [facility] Comment on above: Order Comment: Speci men Type: BLOOD SPECIMENOrdering Facility: [facility] Address: [address] [place] [address] Performed By: #### 2 4323-8 ####[facility] CAMPUSWNCLIA [id number] [place] [address] [place] Urea nitrogen [Mass/Vol] 16 mg/dL Normal 7-21 [facility] Comment on above: Order Comment: Speci men Type: BLOOD SPECIMENOrdering Facility: [facility] Address: [address] [place] [address] Performed By: #### 2 4323-8 ####[facility]ITALNCLIA [id number] [place] [address] [place] [facility] Ferritin [Mass/Vol] 70.4 ng/mL Normal 14.7-205.1 [facility] Comment on above: Order Comment: Speci men Type: BLOOD SPECIMENOrdering Facility: [facility] Address: [address] [place] [address] Performed By: #### 2 276-4, 06384-0 ####[facility] LABCLIA [id number] [place] [address] [place] Iron and Iron binding capaci ty panelon 02-02-2024 Iron [Mass/Vol] 121 ug/dL Normal 41-186 [facility] Comment on above: Order Comment: Speci men Type: BLOOD SPECIMENOrdering Facility: [facility] Address: [address] [place] [address] Performed By: #### 2 276-4, 95902-1 ####[facility] LABCLIA [id number] [address] Iron binding capacity [Mass/Vol] 311 ug/dL Normal 232-386 [facility] Comment on above: Order Comment: Speci men Type: BLOOD SPECIMENOrdering Facility: [facility] Address: [address] [place] [address] Performed By: #### 2 276-4, 32467-9 ####[facility] LABCLIA [id number] [address] STATES OF [facility] Iron/TIBC [Molar ratio] 38.9 % Normal 15.0-57.0 [facility] Comment on above: Order Comment: Speci men Type: BLOOD SPECIMENOrdering Facility: [facility] Address: [address] [place] [address] Performed By: #### 2 276-4, 09980-3 ####[facility] LABIA [id number] [place] [address] [place] GOOD SCREENING W TOMOon 01-15 GOOD SCREENING W MALOU * * *Final Report* * * DATE OF EXAM: Jan 16 2024 8:26AM WRW 0582 - GOOD SCREENING W MALOU / PROCEDURE REASON: Encounter for screening breast examination * * * * Physician Interpretation * * * * RESULT: [address] [address] [place] [address] HISTORY: Patient is 78 years old and [...] Sarah Mendez M.D. Electronically signed on: 01/19/2024 Computer Repair Technician: LUZ MARINA Transcribe Date/Time: Jan 16 2024 8:12A Dictated by: SARAH MENDEZ MD This examination was interpreted and the report reviewed and electronically signed by: SARAH MENDEZ MD on Jan 19 2024 8:12AM EST [id number] Normal [facility] MR Brain WO contraston 09-01 * * *Final Report* * * DATE OF EXAM: Sep 02 2023 2:19PM [facility] 0294 - MRI BRAIN WO IVCON / [...] also Johan 2010). DIVISION OF RADIOLOGY Provider, David Gonzalezmichael [facility] - 09/02/2023 * * *Final Report* * * DATE OF EXAM: Sep 02 2023 2:19PM [facility] 0294 - MRI BRAIN WO IVCON / [...] dementia protocol and 3-D post-processing using the Feedback-Machine software at an independent workstation with concurrent [...] Confluent lesions Jaguar (more content not included)... [facility] MR Unspecified body region 3 D post processingon 09-02-2023 * * *Final Report* * * DATE OF EXAM: Sep 02 2023 2:19PM [facility] - MRI 3D POST PROCESSING / PROCEDURE [...] dementia protocol and 3-D post-processing using the Feedback-Machine software at an independent workstation with concurrent [...] also Johan 2010). DIVISION OF RADIOLOGY Provider, [facility] - 09/02/2023 * * *Final Report* * * DATE OF EXAM: Sep 02 2023 2:19PM [facility] 0280 - MRI 3D POST PROCESSING / [...] dementia protocol and 3-D post-processing using the Feedback-Machine software at an independent workstation with concurrent [...] = Confluent lesions (more content not included)... [facility] No Panel Informationon 09-01 IMPRESSION: * No [...] 5 mm) 3 = Confluent lesions Johan Soler, et al. The clinical use of structural MRI in Alzheimer disease. Nature Reviews Neurology 6;67 (2010). Petty et al. Validation of a fully automated 3D hippocampal segmentation method using subjects with Alzheimer's disease mild cognitive impairment, and elderly controls. Neuroimage 43;59 (2008). Kevinhlund et al. A New Rating Scale for Age-Related White Matter Changes Applicable to MRI and CT. Stroke. 32:1318 (2001). * Asymmetry index defined as difference between left and right volumes divided by mean (%). Age-matched reference charts measure total hippocampal volume (% of intracranial volume). See results from the analysis charts for details. Computer Repair Technician: PSCB Transcribe Date/Time: Sep 02 2023 2:45P Dictated by : SREEDHAR GREEN MD This examination was interpreted and the report reviewed and electronically signed by: SREEDHAR GREEN MD on Sep 02 2023 3:00PM [facility] DIVISION OF RADIOLOGY Radiology Study observation (narrative) Deshawn adhikari [facility] No Panel InformationOrdered By: Ccf Provider on 09-02-2023 [facility] Basophil percentageOrdered B y: Moose Lawrence on 01-27-2023 Basophil percentage 0 SEEN /hpf 0-5 [facility] Bilirubin Test strip Ql (U)O rdered By: Moose Lawrence on 01-27-2023 Bilirubin Ql (U) Negative Negative [facility] Culture, urineOrdered By: St taras Lawrence on 01-27-2023 Bacteria identified Cx Nom (U) Mixed Gram Pos & Gram Neg Org [facility] Ketones Test strip Ql (U)Ord ered By: Moose Lawrence on 01-27-2023 Ketones Ql (U) Negative Negative [facility] Mucus LM Ql (Urine sed)Order ed By: Moose Lawrence on 01-27-2023 Mucus Ql (Urine sed) 0 SEEN /hpf [facility] Nitrite Test strip Ql (U)Ord ered By: Moose Lawrence on 01-27-2023 Nitrite Ql (U) Negative Negative [facility] Protein Test strip Ql (U)Ord ered By: Moose Lawrence on 01-27-2023 Protein Ql (U) Negative Negative [facility] Squamous epithelial cells de tection in urine sediment by light microscopyOrdered By: Moose Lawrence on 01-27-2023 Epithelial cells.squamous LM Ql (Urine sed) 0-5 SEEN /hpf 5-[address] [facility] Urine blood detectionOrdered By: Moose Lawrence on 01-27-2023 RBC Ql (U) Negative Negative [facility] RBC Ql (U) 0 SEEN /hpf 0-[address] [facility] Urine clarityOrdered By: Noah Lawrence on 01-27-2023 Clarity (U) Clear Clear [facility] Urine color determinationOrd ered By: Moose Lawrence on 01-27-2023 Color (U) Yellow Yellow [facility] Urine glucose detectionOrder ed By: Moose Lawrence on 01-27-2023 Glucose Ql (U) Normal mg/dl Normal [facility] Urine leukocyte esterase det ection by dipstickOrdered By: Moose Lawrence on 01-27-2023 Leukocyte esterase Test strip Ql (U) 100 /ul Negative [facility] Urine pHOrdered By: Moose ferro on 01-27-2023 pH (U) 7.0 [pH] 5.0 - 8.[address] [facility] Urine sediment bacteria coun t by microscopy (number/high power field)Ordered By: Moose Lawrence on 01-27-2023 Bacteria LM.HPF (Urine sed) [#/Area] 0 /[HPF] None Seen [facility] Urine specific gravity measu rementOrdered By: Moose Lawrence on 01-27-2023 Specific gravity (U) [Rel density] 1.010 1.002-1.[address] [facility] Urobilinogen Auto test strip Ql (U)Ordered By: Moose Lawrence on 01-27-2023 Urobilinogen Ql (U) Normal mg/dl Normal [facility] Laboratory - Chemistry and C hemistry - challengeon 01-25-2023 Bilirubin Ql (U) Negative [facility] Glucose Ql (U) Negative [facility] Ketones Ql (U) Negative [facility] pH (U) 6.5 [pH] [facility] Specific gravity (U) [Rel density] 1.[address] [facility] Urobilinogen (U) [Mass/Vol] 0.8198065 mg/dL [facility] Laboratory - Hematology and Cell countson 01-25-2023 Hemoglobin Ql (U) Negative [facility] Laboratory - Specimen inform ationon 01-25-2023 Clarity (U) Cloudy [facility] Color (U) YELLOW [facility] Laboratory - Urinalysison Nitrite Ql (U) Negative [facility] Protein Ql (U) Negative [facility] No Panel Informationon 01-25 Urine Leukocytes Positive [facility] Urine Non-Hemolyzed Blood Negative [facility] GOOD SCREENINGon 01-07-2023 [facility] UA DIP, URINE (POC)on 2022 BILIRUBIN UA (POCT) Negative Negative [facility] CLARITY UA (POCT) Clear [facility] COLOR UA (POCT) Yellow [facility] GLUCOSE UA (POCT) Negative Negative mg/dL [facility] Hemoglobin Ql (U) Trace-intact Abnormal Negative [facility] KETONE UA (POCT) Negative Negative mg/dL [facility] LEUKOCYTES UA (POCT) Trace Abnormal Negative [facility] NITRITE UA (POCT) Negative Negative [facility] PH UA (POCT) 7.0 4.5 - 8.0 [facility] Protein Ql (U) Negative Negative mg/dL [facility] SPECIFIC GRAVITY UA (POCT) 1.010 1.005 - 1.030 [facility] UROBILINOGEN UA (POCT) 0.2 E.U./dL Deysi l E.U./dL [facility] Basophil percentageOrdered B y: Katarina Medina on 12-09-2022 Bilirubin [Mass/Vol] 0.60 mg/dL 0.20-1.00 [facility] Comment on above: For patients on eltr ombopag therapy, use of Dimension Burt TBIL is not recommended. Chloride [Moles/Vol] 105 mmol/L 98-107 [facility] Cholesterol [Mass/Vol] 171 mg/dL <200 [facility] Comment on above: <200 mg/dL Desirable 200-240 mg/dL Borderline >240 mg/dL High Risk Glucose [Mass/Vol] 99 mg/dL 74-106 [facility] Potassium [Moles/Vol] 3.8 mmol/L 3.5-5.1 [facility] Protein [Mass/Vol] 7.0 g/dL 6.4-8.2 [facility] Sodium [Moles/Vol] 140 mmol/L 136-145 [facility] Triglyceride [Mass/Vol] 95 mg/dL <199 [facility] Comment on above: The drugs N-Acetylcy steine and Metamizole may falsely depress this assay.Serum Triglycerides Reference Interval Normal <150 mg/dL Borderline high 150 - 199 mg/dL High 200 - 499 mg/dL Very High > or = 500 mg/dL Laboratory - Chemistry and C hemistry - challengeOrdered By: Katarina Medina on 12-09-2022 ALP [Catalytic activity/Vol] 78 U/L 45-[address] [facility] ALT [Catalytic activity/Vol] 18 U/L 13-[address] [facility] CO2 [Moles/Vol] 29.0 mmol/L 21.0-32.[address] [facility] Cobalamin (Vitamin B12) [Mass/Vol] 420 pg/mL 211-[address] [facility] Globulin (S) [Mass/Vol] 3.1 g/dL 2.2-4.2 [facility] Magnesium [Mass/Vol] 2.4 mg/dL 1.6-2.6 [facility] Urea nitrogen/Creatinine [Mass ratio] 17.9 mg/mg 10-[address] [facility] No Panel InformationOrdered By: Katarina Medina on 12-09-2022 Estimated GFR (MDRD) Amer 109 mL/min >[address] [facility] Comment on above: GFR Calc Estimated GFR (MDRD) Non-Af Amer 90 mL/min >[address] [facility] Comment on above: Non- GFR Calc Thyroid Stimulating Hormone (TSH) 0.80 uIU/mL 0.358-3.[address] [facility] Vitamin D 25-Hydroxy 105.5 ng/mL [facility] Comment on above: Vitamin D 25(OH) [...] Medina on 12-09-2022 CRP [Mass/Vol] mg/L 0.0-3.[address] [facility] Comment on above: C-Reactive Protein ( CRP) provides useful information for thediagnosis, therapy and monitoring of inflammatory processesand associated diseases. For the evaluation of Relative Riskfor Cardiovascular Disease, a High Sensitivity CRP (HSCRP)should be ordered. Serum or plasma albumin chapis urement (mass/volume)Ordered By: Katarina Medina on 12-09-2022 Albumin [Mass/Vol] 3.9 g/dL 3.2-5.0 [facility] Serum or plasma albumin/glob ulin mass ratioOrdered By: Katarina Medina on 12-09-2022 Albumin/Globulin [Mass ratio] 1.3 {ratio} 0.9-2.[address] [facility] Serum or plasma calcium chapis urement (mass/volume)Ordered By: Katarina Medina on 12-09-2022 Calcium [Mass/Vol] 9.3 mg/dL 8.5-10.1 [facility] Serum or plasma cholesterol in HDL measurement (mass/volume)Ordered By: Katarina Medina on 12-09-2022 Cholesterol in HDL [Mass/Vol] 68 mg/dL >[address] [facility] Comment on above: The drugs N-Acetylcy steine and Metamizole may falsely depress this assay. Reference Range HDL <40 mg/dL Low HDL Cholesterol HDL >or= 60 mg/dL High HDL Cholesterol Serum or plasma cholesterol in VLDL measurement (mass/volume)Ordered By: Katarina Medina on 12-09-2022 Cholesterol in VLDL [Mass/Vol] 19 mg/dL 5-[address] [facility] Serum or plasma creatinine m easurement (mass/volume)Ordered By: Katarina Medina on 12-09-2022 Creatinine [Mass/Vol] 0.67 mg/dL 0.55-1.02 [facility] Comment on above: The validity of the calculated GFR & GFRAA in patients over 70 years has not been determined. Clinical correlation is essential. Serum or plasma low density lipoprotein (LDL) cholesterol measurement (mass/volume)Ordered By: Katarina Medina on 12-09-2022 Cholesterol in LDL [Mass/Vol] 84 mg/dL 0-[address] [facility] Serum or plasma urea nitroge n measurement (mass/volume)Ordered By: Katarina Medina on 12-09-2022 Urea nitrogen [Mass/Vol] 12 mg/dL 7-[address] [facility] Thin prep Papanicolaou smear with manual screeningOrdered By: Katarina Medina on 12-09-2022 Thin prep Papanicolaou smear with manual screening 14 U/L 15-[address] [facility] Thin prep Papanicolaou smear with manual screening 6 5-[address] [facility] No Panel Informationon 11-01 Anti-Nuclear Antibody Screen Negative Negative [facility] Comment on above: Performed at: [facility] [address] [id number] Director: Juanito Boone PhD, Phone: [phone] Miscellaneous Test See comment [facility] Comment on above: TEST RESULTS LIMITSA nti-SS-A 52kD Ab, IgG (RDL) A, <20 Units <20 Negative: <20 Weak Positive: 20 - 39 Moderate Positive: 40 - 80 Strong Positive: >80CommentsA: This test was developed and its performance characteristics determined by [facility]. It has not been cleared or approved by the Food and DrugAdministration. TESTING PERFORMED AT [facility]. ORIGINAL REPORT ON FILE IN LAB CONTAINS ADDITIONAL TEST SITE INFORMATION. Nevin 10-25-2022 CRISTIAN Telephone (MEPRAD) MAYCOLEDER Chris ([id number]) 1945 F Date Time Provider Department 10/25/22 MI DOUGLAS During your visit today, we recorded the [...] Date Reviewed: 07/15/2022 Reviewed by: Izabel Sams APRN.CUSTOMER ASSOCIATE - Fully Assessed Reason for Visit: Orders [681] Primary Visit Diagnosis:Screening breast examination [Z12.39] Order(s):GOOD SCREENING [[id number]] Order #: [id number] FUTURE Prescriptions as of 10/29/2022 - TURMERIC ORAL Take by mouth. - lutein 10 mg tab Take 1 tablet by mouth once daily. - OTC PRODUCT 250 mg once daily. Quercetin - Bacillus coagulans/inulin (PROBIOTIC WITH PREBIOTIC ORAL) Take 1 capsule by mouth once daily. - OTC PRODUCT [place]- r/t [facility] - MAGNESIUM ORAL Take 100 mg by [...] Encounter Status:Closed by MI DOUGLAS on 10/25/22 [facility] CBC W Auto Differential pane l (Bld)on 08-13-2022 Basophils (Bld) [#/Vol] 0.05 10*3/uL <0.11 k/uL [facility] Basophils/100 WBC (Bld) 1.0 % [facility] Differential cell count method Nom (Bld) Auto [facility] Eosinophils (Bld) [#/Vol] 0.15 10*3/uL <0.46 k/uL [facility] Eosinophils/100 WBC (Bld) 2.9 % [facility] Erythrocyte distribution width (RBC) [Ratio] 13.3 % 11.5 - 15.0 % [facility] Hematocrit (Bld) [Volume fraction] 43.8 % 36.0 - 46.0 % [facility] Hemoglobin (Bld) [Mass/Vol] 14.9 g/dL 11.5 - 15.5 g/dL [facility] Immature granulocytes (Bld) [#/Vol] <0.10 k/uL [facility] Immature granulocytes/100 WBC (Bld) 0.2 % [facility] Lymphocytes (Bld) [#/Vol] 1.49 10*3/uL 1.00 - 4.00 k/uL [facility] Lymphocytes/100 WBC (Bld) 28.6 % [facility] MCH (RBC) [Entitic mass] 29.8 pg 26. 0 - 34.0 pg [facility] MCHC (RBC) [Mass/Vol] 34.0 g/dL 30.5 - 36.0 g/dL [facility] MCV (RBC) [Entitic vol] 87.6 fL 80.0 - 100.0 fL [facility] Monocytes (Bld) [#/Vol] 0.43 10*3/uL <0.87 k/uL [facility] Monocytes/100 WBC (Bld) 8.3 % [facility] Neutrophils (Bld) [#/Vol] 3.08 10*3/uL 1.45 - 7.50 k/uL [facility] Neutrophils/100 WBC (Bld) 59.0 % [facility] Nucleated RBC (Bld) [#/Vol] <0.01 k/uL [facility] Nucleated RBC/100 WBC (Bld) [Ratio] 0.0 /100 WBC [facility] Platelet mean volume (Bld) [Entitic vol] 10.1 fL 9.0 - 12.7 fL [facility] Platelets (Bld) [#/Vol] 183 10*3/uL 150 - 400 k/uL [facility] RBC (Bld) [#/Vol] 5.00 10*6/uL 3.90 - 5.2 0 m/uL [facility] WBC (Bld) [#/Vol] 5.21 10*3/uL 3.70 - 11. 00 k/uL [facility] US ABD RT UPPER QUADRANTon 0 06-03-2022 [facility] GOOD SCREENINGon 01-03-2022 [facility] No Panel Informationon 12-20 Miscellaneous Test See comment [facility] Work Phone: Comment on above: TEST RESULT LIMITSCl ass Description: Levels of Specific IgE Class Description of Class ----- < 0.10 0 Negative 0.10 - 0.31 0/I Equivocal/Low 0.32 - 0.55 I Low 0.56 - 1.40 II Moderate 1.41 - 3.90 III High 3.91 - 19.00 IV Very High19.01 - 100.00 V Very High >100.00 Very [id number] Penicilliumchrysogen <0.10 kU/L Class [id number]-VvL Cladosporiumherbarum <0.10 kU/L Class 9U118-CfR Aspergillusfumigatus <0.10 kU/L Class 9S260-GqQ Mucor racemosus <0.10 kU/L Class 3V505-NsT Jerrica albicans <0.10 kU/L Class [id number]-UqX Alternaria alternata <0.10 kU/L Class 0O487-DnT Setomelanommarostrat <0.10 kU/L Class 4N139-ZkK Fusariumproliferatum <0.10 kU/L Class 2J827-HeF Aureobasidipullulans <0.10 kU/L Class 8A036-NaH Phoma betae <0.10 kU/L Class 1J609-NvW Epicoccum purpur <0.10 kU/L Class 0M412-WlF Stemphyliumherbarum <0.10 kU/L Class 0 TESTING PERFORMED AT [facility]. ORIGINAL REPORT ON FILE IN LAB CONTAINS ADDITIONAL TEST SITE INFORMATION. No Panel Informationon 08-02 Miscellaneous Test See comment [facility] Work Phone: Comment on above: TEST RESULT UNITS RE F INTERVALAllergen Profile, MoldClass Description Levels of Specific IgE Class Description of Class ----- < 0.10 0 Negative 0.10 - 0.31 0/I Equivocal/Low 0.32 - 0.55 I Low 0.56 - 1.40 II Moderate 1.41 - 3.90 III High 3.91 - 19.00 IV Very High 19.01 - 100.00 V Very High >100.00 Very [id number]-EdA Penicillium chrysogen <0.10 kU/L Class 4V032-DfS Cladosporium herbarum <0.10 kU/L Class 6F686-TsF Aspergillus fumigatus <0.10 kU/L Class 3U829-HyX Mucor racemosus <0.10 kU/L Class 8S117-OqK Jerrica albicans <0.10 kU/L Class 0F451-SwG Alternaria alternata <0.10 kU/L Class 8R878-JrY Setomelanomma rostrat <0.10 kU/L Class 6N167-ThU Fusarium proliferatum <0.10 kU/L Class 4N815-JmF Aureobasidi pullulans <0.10 kU/L Class 2I749-GxC Phoma betae <0.10 kU/L Class 4B959-ZpO Epicoccum purpur <0.10 kU/L Class 3I780-GkM Stemphylium herbarum <0.10 kU/L Class 0 TESTING PERFORMED AT [facility]. ORIGINAL REPORT ON FILE IN LAB CONTAINS ADDITIONAL TEST SITE INFORMATION. Absolute lymphocyte counton 05-28-2021 Lymphocytes Auto (Unsp spec) [#/Vol] 1.18 10*3/uL 0.83-4.[address] [facility] Work Phone: Basophil percentageon 2021 Basophils/100 WBC (Bld) 1.4 % 0-1 [facility] Work Phone: Bilirubin [Mass/Vol] 0.60 mg/dL 0.20-1.00 [facility] Work Phone: Comment on above: For patients on eltr ombopag therapy, use of Dimension Burt TBIL is not recommended. Chloride [Moles/Vol] 107 mmol/L 98-107 [facility] Work Phone: Cholesterol [Mass/Vol] 159 mg/dL <200 [facility] Work Phone: Comment on above: <200 mg/dL Desirable 200-240 mg/dL Borderline >240 mg/dL High Risk Eosinophils/100 WBC (Bld) 2.3 % 0-[address] [facility] Work Phone: Glucose [Mass/Vol] 100 mg/dL 74-106 [facility] Work Phone: Comment on above: Fasting Glucose resu lt from 100 to 125 mg/dL suggests IMPAIRED HOMEOSTASIS per A.D.A. criteria. Neutrophils (Bld) [#/Vol] 2.7 10*3/uL 2.0-7.[address] [facility] Work Phone: Neutrophils/100 WBC (Bld) 62.0 % 47-[address] [facility] Work Phone: Potassium [Moles/Vol] 4.2 mmol/L 3.5-5.1 [facility] Work Phone: [phone] Protein [Mass/Vol] 6.8 g/dL 6.4-8.2 [facility] Work Phone: Sodium [Moles/Vol] 140 mmol/L 136-145 [facility] Work Phone: Triglyceride [Mass/Vol] 69 mg/dL [facility] Work Phone: Comment on above: The drugs N-Acetylcy steine and Metamizole may falsely depress this assay.Serum Triglycerides Reference Interval Normal <150 mg/dL Borderline high 150 - 199 mg/dL High 200 - 499 mg/dL Very High > or = 500 mg/dL WBC (Bld) [#/Vol] 4.4 10*3/uL 4.4-11.0 [facility] Work Phone: Blood erythrocytes count (nu mber/volume)on 05-28-2021 RBC (Bld) [#/Vol] 4.66 10*6/uL 4.2-5.4 [facility] Work Phone: Blood hemoglobin measurement (mass/volume)on 05-28-2021 Hemoglobin (Bld) [Mass/Vol] 13.8 g/dL 12.0-15.[address] [facility] Work Phone: Blood lymphocytes/100 leukoc yteson 05-28-2021 Lymphocytes/100 WBC (Bld) 26.8 % 19-[address] [facility] Work Phone: Blood monocytes/100 leukocyt eson 05-28-2021 Monocytes/100 WBC (Bld) 7.3 % 0-10 [facility] Work Phone: Blood platelet mean volumeon 05-28-2021 Platelet mean volume (Bld) [Entitic vol] 10.4 fL 6.2-12.[address] [facility] Work Phone: Determination of erythrocyte mean corpuscular volume (MCV)on 05-28-2021 MCV (RBC) [Entitic vol] 89.3 fL 81-99 [facility] Work Phone: Hematocrit Auto (Bld) [Volum e fraction]on 05-28-2021 Hematocrit (Bld) [Volume fraction] 41.6 % 37-[address] [facility] Work Phone: Laboratory - Chemistry and C hemistry - challengeon 05-28-2021 ALP [Catalytic activity/Vol] 70 U/L 45-[address] [facility] Work Phone: ALT [Catalytic activity/Vol] 16 U/L 13-[address] [facility] Work Phone: CO2 [Moles/Vol] 29.0 mmol/L 21.0-32.[address] [facility] Work Phone: Cobalamin (Vitamin B12) [Mass/Vol] 365 pg/mL 211-[address] [facility] Work Phone: Globulin (S) [Mass/Vol] 2.9 g/dL 2.2-4.2 [facility] Work Phone: Urea nitrogen/Creatinine [Mass ratio] 17.2 mg/mg 10-[address] [facility] Work Phone: Laboratory - Hematology and Cell countson 03-21-2022 Erythrocyte distribution width (RBC) [Entitic vol] 43.7 fL 35.1-43.[address] [facility] Work Phone: Erythrocyte distribution width (RBC) [Ratio] 13.4 % 11.6-14.[address] [facility] Work Phone: Immature granulocytes/100 WBC (Bld) 0.200 % 0.0-0.[address] [facility] Work Phone: Comment on above: IG% - Immature Granu locytes (promyelocytes, myelocytes and metamyelocytes) > 1% indicates that a LEFT SHIFT is Present. MCH (RBC) [Entitic mass] 29.6 pg 27.0-32.[address] [facility] Work Phone: Nucleated RBC/100 WBC (Bld) [Ratio] 0 % 0-[address] [facility] Work Phone: MCHC Auto (RBC) [Mass/Vol]on 05-28-2021 MCHC (RBC) [Mass/Vol] 33.2 g/dL 32-36 [facility] Work Phone: No Panel Informationon 05-28 Estimated GFR (MDRD) Amer 105 mL/min >[address] [facility] Work Phone: Comment on above: GFR Calc Estimated GFR (MDRD) Non-Af Amer 87 mL/min >[address] [facility] Work Phone: Comment on above: Non- GFR Calc Thyroid Stimulating Hormone (TSH) 0.77 uIU/mL 0.358-3.[address] [facility] Work Phone: Vitamin D 25-Hydroxy 96.7 ng/mL [facility] Work Phone: Comment on above: Vitamin D 25(OH) Sta tus Range Deficiency <20 ng/mL (50nmol/L) Insufficiency 20 - 30 ng/mL (50 - 75 nmol/L) Sufficiency 30 - 100 ng/mL (75 - 250 nmol/L) Toxicity >100 ng/mL (>250 nmol/L) Platelets bldon 05-28-2021 Platelets (Bld) [#/Vol] 230 10*3/uL 150-[address] [facility] Work Phone: Serum or plasma albumin chapis urement (mass/volume)on 05-28-2021 Albumin [Mass/Vol] 3.9 g/dL 3.2-5.0 [facility] Work Phone: Serum or plasma albumin/glob ulin mass ratioon 05-28-2021 Albumin/Globulin [Mass ratio] 1.3 {ratio} 0.9-2.[address] [facility] Work Phone: Serum or plasma calcium chapis urement (mass/volume)on 05-28-2021 Calcium [Mass/Vol] 9.2 mg/dL 8.5-10.1 [facility] Work Phone: Serum or plasma cholesterol in HDL measurement (mass/volume)on 05-28-2021 Cholesterol in HDL [Mass/Vol] 59 mg/dL [facility] Work Phone: Comment on above: The drugs N-Acetylcy steine and Metamizole may falsely depress this assay. Reference Range HDL <40 mg/dL Low HDL Cholesterol HDL >or= 60 mg/dL High HDL Cholesterol Serum or plasma cholesterol in VLDL measurement (mass/volume)on 05-28-2021 Cholesterol in VLDL [Mass/Vol] 14 mg/dL 5-[address] [facility] Work Phone: Serum or plasma creatinine m easurement (mass/volume)on 05-28-2021 Creatinine [Mass/Vol] 0.70 mg/dL 0.55-1.02 [facility] Work Phone: Comment on above: The validity of the calculated GFR & GFRAA in patients over 70 years has not been determined. Clinical correlation is essential. Serum or plasma low density lipoprotein (LDL) cholesterol measurement (mass/volume)on 05-28-2021 Cholesterol in LDL [Mass/Vol] 86 mg/dL 0-[address] [facility] Work Phone: Serum or plasma urea nitroge n measurement (mass/volume)on 05-28-2021 Urea nitrogen [Mass/Vol] 12 mg/dL 7-[address] [facility] Work Phone: Thin prep Papanicolaou smear with manual screeningon 05-28-2021 Thin prep Papanicolaou smear with manual screening 15 U/L 15-[address] [facility] Work Phone: Thin prep Papanicolaou smear with manual screening 4 5-[address] [facility] Work Phone: Whole blood hemoglobin A1c/t otal hemoglobin ratio (mass fraction)on 05-28-2021 HbA1c (Bld) [Mass fraction] 5.3 % 3.8-5.[address] [facility] Work Phone: Comment on above: Normal < 5.7 % Predi abetic 5.7 - 6.4 % Diabetic >or= 6.5 % Please note range changes. Laboratory - Microbiology an d Antimicrobial susceptibilityon 03-23-2021 SARS-CoV-2 (COVID-19) RNA ULISES+probe Ql (Unsp spec) Detected Not Detect [facility] Work Phone: Comment on above: Normal Reference [...] Time Vital Sign Value Performing Clinician Facility 12-01-2024 20:03-0400 Body temperature 97.9 [degF] Dr. Katarina Medina MD Work Phone: [facility] 12-01-2024 20:03-0400 Diastolic blood pressure 90 mm[Hg] Dr. Katarina Medina MD Work Phone: [facility] 12-01-2024 20:03-0400 Heart rate 81 /min Dr. Katarina Medina MD Work Phone: [facility] 12-01-2024 20:03-0400 Respiratory rate 16 /min Dr. Katarina Medina MD Work Phone: [facility] 12-01-2024 20:03-0400 SaO2% (BldA) [Mass fraction] 98 % Dr. Katarina Medina MD Work Phone: [facility] 12-01-2024 20:03-0400 Systolic blood pressure 161 mm[Hg] Dr. Katarina Medina MD Work Phone: [facility] 12-01-2024 14:33-0400 Body height 165.[address] Katarina Medina MD Work Phone: [facility] 12-01-2024 14:33-0400 Body mass index (BMI) [Ratio] 25.6 kg/m2 Dr. Katarina Medina MD Work Phone: [facility] 12-01-2024 14:33-0400 Body weight 69.[address] Katarina Medina MD Work Phone: [facility] 10-18-2024 06:41-0400 Body height 165.[address] Katarina Medina MD Work Phone: [facility] 10-18-2024 06:41-0400 Body mass index (BMI) [Ratio] 25.2 kg/m2 Dr. Katarina Medina MD Work Phone: [facility] 10-18-2024 06:41-0400 Body temperature 97.5 [degF] Dr. Katarina Medina MD Work Phone: [facility] 10-18-2024 06:41-0400 Body weight 68.[address] Katarina Medina MD Work Phone: [facility] 10-18-2024 06:41-0400 Diastolic blood pressure 72 mm[Hg] Dr. Katarina Medina MD Work Phone: [facility] 10-18-2024 06:41-0400 Heart rate 69 /min Dr. Katarina Medina MD Work Phone: [facility] 10-18-2024 06:41-0400 SaO2% (BldA) [Mass fraction] 98 % Dr. Katarina Medina MD Work Phone: [facility] 10-18-2024 06:41-0400 Systolic blood pressure 148 mm[Hg] Dr. Katarina Medina MD Work Phone: [facility] 10-12-2024 09:12-0400 Diastolic blood pressure 81 mm[Hg] [facility] Work Phone: [facility] 10-12-2024 09:12-0400 Heart rate 63 /min [facility] Work Phone: [facility] 10-12-2024 09:12-0400 Systolic blood pressure 170 mm[Hg] [facility] Work Phone: [facility] 10-12-2024 08:29-0400 Body mass index (BMI) [Ratio] 25.79 kg/m2 Luis Masci DO Work Phone: [facility] 10-12-2024 08:29-0400 Body temperature 98.01 [degF] Luis Masci DO Work Phone: [facility] 10-12-2024 08:29-0400 Body weight 70.31 kg Luis Masci DO Work Phone: [facility] 10-12-2024 08:29-0400 Diastolic blood pressure 76 mm[Hg] Luis Masci DO Work Phone: [facility] 10-12-2024 08:29-0400 Heart rate 73 /min Luis Masci DO Work Phone: [facility] 10-12-2024 08:29-0400 SaO2% (BldA) [Mass fraction] 100 % Luis Masci DO Work Phone: [facility] 10-12-2024 08:29-0400 Systolic blood pressure 176 mm[Hg] Luis Ron DO Work Phone: [facility] 09-15-2024 09:52-0400 Body height 165.[address] Katarina Medina MD Work Phone: [facility] 09-15-2024 09:52-0400 Body mass index (BMI) [Ratio] 24.7 kg/m2 Dr. Katarina Medina MD Work Phone: [facility] 09-15-2024 09:52-0400 Body temperature 98.2 [degF] Dr. Katarina Medina MD Work Phone: [facility] 09-15-2024 09:52-0400 Body weight 67.[address] Katarina Medina MD Work Phone: [facility] 09-15-2024 09:52-0400 Diastolic blood pressure 71 mm[Hg] Dr. Katarina Medina MD Work Phone: [facility] 09-15-2024 09:52-0400 Heart rate 63 /min Dr. Katarina Medina MD Work Phone: [facility] 09-15-2024 09:52-0400 Respiratory rate 16 /min Dr. Katarina Medina MD Work Phone: [facility] 09-15-2024 09:52-0400 SaO2% (BldA) [Mass fraction] 96 % Dr. Katarina Medina MD Work Phone: [facility] 09-15-2024 09:52-0400 Systolic blood pressure 180 mm[Hg] Dr. Katarina Medina MD Work Phone: [facility] 09-12-2024 12:41-0400 Body temperature 98.9 [degF] Dr. Katarina Medina MD Work Phone: [facility] 09-12-2024 12:41-0400 Diastolic blood pressure 78 mm[Hg] Dr. Katarina Medina MD Work Phone: [facility] 09-12-2024 12:41-0400 Heart rate 86 /min Dr. Katarina Medina MD Work Phone: [facility] 09-12-2024 12:41-0400 Respiratory rate 16 /min Dr. Katarina Medina MD Work Phone: [facility] 09-12-2024 12:41-0400 SaO2% (BldA) [Mass fraction] 100 % Dr. Katarina Medina MD Work Phone: [facility] 09-12-2024 12:41-0400 Systolic blood pressure 145 mm[Hg] Dr. Katarina Medina MD Work Phone: [facility] 09-12-2024 08:36-0400 Body height 165.[address] Katarina Medina MD Work Phone: [facility] 09-12-2024 08:36-0400 Body mass index (BMI) [Ratio] 23.8 kg/m2 Dr. Katarina Medina MD Work Phone: [facility] 09-12-2024 08:36-0400 Body weight 64.[address] Katarina Medina MD Work Phone: [facility] 09-01-2024 16:20-0400 Body temperature 98.2 [degF] Dr. Katarina Medina MD Work Phone: [facility] 09-01-2024 16:20-0400 Diastolic blood pressure 80 mm[Hg] Dr. Katarina Medina MD Work Phone: [facility] 09-01-2024 16:20-0400 Heart rate 61 /min Dr. Katarina Medina MD Work Phone: [facility] 09-01-2024 16:20-0400 Respiratory rate 16 /min Dr. Katarina Medina MD Work Phone: [facility] 09-01-2024 16:20-0400 SaO2% (BldA) [Mass fraction] 97 % Dr. Katarina Medina MD Work Phone: [facility] 09-01-2024 16:20-0400 Systolic blood pressure 124 mm[Hg] Dr. Katarina Medina MD Work Phone: [facility] 07-20-2024 14:05-0400 Body height 165.[address] Katarina Medina MD Work Phone: [facility] 07-20-2024 09:39-0400 Diastolic blood pressure 69 mm[Hg] [facility] Work Phone: [facility] 07-20-2024 09:39-0400 Heart rate 60 /min [facility] Work Phone: [facility] 07-20-2024 09:39-0400 Systolic blood pressure 155 mm[Hg] [facility] Work Phone: [facility] 07-20-2024 08:35-0400 Body temperature 97.81 [degF] [facility] Work Phone: [facility] 07-20-2024 08:35-0400 SaO2% (BldA) [Mass fraction] 98 % [facility] Work Phone: [facility] 06-30-2024 14:34-0400 Body mass index (BMI) [Ratio] 25.5 kg/m2 Dr. Katarina Medina MD Work Phone: [facility] 06-30-2024 14:34-0400 Body temperature 98.4 [degF] Dr. Katarina Medina MD Work Phone: [facility] 06-30-2024 14:34-0400 Body weight 69.[address] Katarina Medina MD Work Phone: [facility] 06-30-2024 14:34-0400 Diastolic blood pressure 71 mm[Hg] Dr. Katarina Medina MD Work Phone: [facility] 06-30-2024 14:34-0400 Heart rate 63 /min Dr. Katarina Medina MD Work Phone: [facility] 06-30-2024 14:34-0400 Respiratory rate 16 /min Dr. Katarina Medina MD Work Phone: [facility] 06-30-2024 14:34-0400 SaO2% (BldA) [Mass fraction] 97 % Dr. Katarina Medina MD Work Phone: [facility] 06-30-2024 14:34-0400 Systolic blood pressure 181 mm[Hg] Dr. Katarina Medina MD Work Phone: [facility] 05-27-2024 15:07-0400 Diastolic blood pressure 55 mm[Hg] Airam Alvarado [employer] Work Phone: [facility] 05-27-2024 15:07-0400 Systolic blood pressure 159 mm[Hg] Airamchilango Alvarado [employer] Work Phone: [facility] 05-27-2024 13:46-0400 Body height 165.1 cm Airamchilango Alvarado [employer] Work Phone: [facility] 05-27-2024 13:46-0400 Body mass index (BMI) [Ratio] 25.24 kg/m2 Airam Jenny [employer] Work Phone: [facility] 05-27-2024 13:46-0400 Body weight 68.8 kg Airam Jenny [employer] Work Phone: [facility] 05-27-2024 13:46-0400 Heart rate 68 /min Airam Jenny [employer] Work Phone: [facility] 04-27-2024 09:13-0500 Diastolic blood pressure 73 mm[Hg] [facility] Work Phone: [facility] Comment on above: Pt states she has talked to Dr. Aasf owen out elevated BP. Pt. takes BP at home and showed this nurse BP this am [id number] 04-27-2024 09:13-0500 Heart rate 65 /min [facility] Work Phone: [facility] 04-27-2024 09:13-0500 Respiratory rate 18 /min [facility] Work Phone: [facility] 04-27-2024 09:13-0500 Systolic blood pressure 165 mm[Hg] [facility] Work Phone: [facility] Comment on above: Pt states she has talked to Dr. Asaf owen out elevated BP. Pt. takes BP at home and showed this nurse BP this am [id number] 04-27-2024 08:33-0500 Body temperature 96.8 [degF] [facility] Work Phone: [facility] 04-27-2024 08:33-0500 SaO2% (BldA) [Mass fraction] 99 % [facility] Work Phone: [facility] 04-19-2024 16:00-0500 Body height 165.1 cm Oli Avery MD Work Phone: [facility] 04-19-2024 16:00-0500 Body mass index (BMI) [Ratio] 24.13 kg/m2 Oli Avery MD Work Phone: [facility] [facility] 04-19-2024 16:00-0500 Body temperature 98.01 [degF] Oli Avery MD Work Phone: [facility] 04-19-2024 16:00-0500 Body weight 65.77 kg Oli Avery MD Work Phone: [facility] 04-19-2024 16:00-0500 Diastolic blood pressure 60 mm[Hg] Oli Avery MD Work Phone: [facility] 04-19-2024 16:00-0500 Heart rate 83 /min Oli Avery MD Work Phone: [facility] 04-19-2024 16:00-0500 Respiratory rate 14 /min Oli Avery MD Work Phone: [facility] 02-10-2025 16:00-0500 SaO2% (BldA) [Mass fraction] 100 % Oli Avery MD Work Phone: [facility] 04-19-2024 16:00-0500 Systolic blood pressure 158 mm[Hg] Oli Avery MD Work Phone: [facility] 03-26-2024 12:23-0500 Blood Pressure Location SHEILA CHAN MD [facility] 03-26-2024 12:23-0500 Blood Pressure Method SHEILA CHAN MD [facility] 03-26-2024 12:23-0500 Body temperature 97.7 [degF] SHEILA CHAN MD [facility] 03-26-2024 12:23-0500 Diastolic Blood Pressure Non-Invasive 72 mm[Hg] SHEILA CHAN MD [facility] 03-26-2024 12:23-0500 Heart rate 77 /min SHEILA CHAN MD [facility] 03-26-2024 12:23-0500 Respiratory rate 18 /min SHEILA CHAN MD [facility] 03-26-2024 12:23-0500 Systolic Blood Pressure Non-Invasive 120 mm[Hg] SHEILA CHAN MD [facility] 02-03-2024 08:20-0500 Diastolic blood pressure 72 mm[Hg] Treatment Wstr Work Phone: [facility] 02-03-2024 08:20-0500 Systolic blood pressure 139 mm[Hg] Treatment Wstr Work Phone: [facility] 02-03-2024 07:48-0500 Body temperature 98.01 [degF] Treatment Wstr Work Phone: [facility] 02-03-2024 07:48-0500 Heart rate 61 /min Treatment Wstr Work Phone: [facility] 02-03-2024 07:48-0500 SaO2% (BldA) [Mass fraction] 98 % Treatment Wstr Work Phone: [facility] 11-11-2023 10:00-0400 Diastolic blood pressure 72 mm[Hg] Treatment Wstr Work Phone: [facility] 11-11-2023 10:00-0400 Heart rate 88 /min Treatment Wstr Work Phone: [facility] 11-11-2023 10:00-0400 Systolic blood pressure 166 mm[Hg] Treatment Wstr Work Phone: [facility] 11-11-2023 09:10-0400 Body mass index (BMI) [Ratio] 25.79 kg/m2 Luis Uniquei DO Work Phone: [facility] 11-11-2023 09:10-0400 Body temperature 98.01 [degF] Luis Uniquei DO Work Phone: [facility] 11-11-2023 09:10-0400 Body weight 70.31 kg Luis Uniquei DO Work Phone: [facility] 11-11-2023 09:10-0400 Diastolic blood pressure 91 mm[Hg] Luis Uniquei DO Work Phone: [facility] 11-11-2023 09:10-0400 Heart rate 67 /min Luis Uniquei DO Work Phone: [facility] 11-11-2023 09:10-0400 SaO2% (BldA) [Mass fraction] 99 % Luis Uniquei DO Work Phone: [facility] 11-11-2023 09:10-0400 Systolic blood pressure 168 mm[Hg] Luis Uniquei DO Work Phone: [facility] 09-25-2023 12:45-0400 Body height 165.1 cm Oli Avery MD Work Phone: [facility] 09-25-2023 12:45-0400 Body mass index (BMI) [Ratio] 23.3 kg/m2 Oli Avery MD Work Phone: [facility] 09-25-2023 12:45-0400 Body weight 63.5 kg Oli Avery MD Work Phone: [facility] 09-25-2023 12:45-0400 Diastolic blood pressure 48 mm[Hg] Oli Avery MD Work Phone: [facility] 09-25-2023 12:45-0400 Heart rate 74 /min Oli Avery MD Work Phone: [facility] 09-25-2023 12:45-0400 SaO2% (BldA) [Mass fraction] 99 % Oli Avery MD Work Phone: [facility] 09-25-2023 12:45-0400 Systolic blood pressure 151 mm[Hg] Oli Avery MD Work Phone: [facility] 08-19-2023 09:47-0400 Diastolic blood pressure 60 mm[Hg] Treatment Wstr Work Phone: [facility] 08-19-2023 09:47-0400 Systolic blood pressure 153 mm[Hg] Treatment Wstr Work Phone: [facility] 08-19-2023 08:59-0400 Body mass index (BMI) [Ratio] 24.71 kg/m2 Treatment Wstr Work Phone: [facility] 08-19-2023 08:59-0400 Body temperature 97.5 [degF] Treatment Wstr Work Phone: [facility] 08-19-2023 08:59-0400 Body weight 67.36 kg Treatment Wstr Work Phone: [facility] 08-19-2023 08:59-0400 Heart rate 66 /min Treatment Wstr Work Phone: [facility] 08-19-2023 08:59-0400 SaO2% (BldA) [Mass fraction] 100 % Treatment Wstr Work Phone: [facility] 05-28-2023 10:23-0400 Body height 165.[address] Katarina Medina Work Phone: [facility] 05-28-2023 10:23-0400 Body mass index (BMI) [Ratio] 24.1 kg/m2 Dr. Katarina Medina Work Phone: [facility] 05-28-2023 10:23-0400 Body temperature 97.6 [degF] Dr. Katarina Medina Work Phone: [facility] 05-28-2023 10:23-0400 Body weight 65.[address] Katarina Medina Work Phone: [facility] 05-28-2023 10:23-0400 Diastolic blood pressure 73 mm[Hg] Dr. Katarina Medina Work Phone: [facility] 05-28-2023 10:23-0400 Heart rate 74 /min Dr. Katarina Medina Work Phone: [facility] 05-28-2023 10:23-0400 SaO2% (BldA) [Mass fraction] 98 % Dr. Katarina Medina Work Phone: [facility] 05-28-2023 10:23-0400 Systolic blood pressure 142 mm[Hg] Dr. Katarina Medina Work Phone: [facility] 05-13-2023 10:01-0500 Diastolic blood pressure 70 mm[Hg] Treatment Wstr Work Phone: [facility] 05-13-2023 10:01-0500 Heart rate 58 /min Treatment Wstr Work Phone: [facility] 05-13-2023 10:01-0500 Systolic blood pressure 144 mm[Hg] Treatment Wstr Work Phone: [facility] 02-11-2023 09:04-0500 Diastolic blood pressure 79 mm[Hg] Treatment Wstr Work Phone: [facility] 02-11-2023 09:04-0500 Heart rate 60 /min Treatment Wstr Work Phone: [facility] 02-11-2023 09:04-0500 Systolic blood pressure 141 mm[Hg] Treatment Wstr Work Phone: [facility] 02-11-2023 08:48-0500 Body temperature 97.7 [degF] Treatment Wstr Work Phone: [facility] 01-25-2023 10:28-0500 Body height 165.[address] Katarina Medina Work Phone: [facility] 01-25-2023 10:28-0500 Body mass index (BMI) [Ratio] 24.7 kg/m2 Dr. Katarina Medina Work Phone: [facility] 01-25-2023 10:28-0500 Body temperature 98.2 [degF] Dr. Katarina Medina Work Phone: [facility] 01-25-2023 10:28-0500 Body weight 67.[address] Katarina Medina Work Phone: [facility] 01-25-2023 10:28-0500 Diastolic blood pressure 77 mm[Hg] Dr. Katarina Medina Work Phone: [facility] 01-25-2023 10:28-0500 Heart rate 81 /min Dr. Katarina Medina Work Phone: [facility] 01-25-2023 10:28-0500 Respiratory rate 16 /min Dr. Katarina Medina Work Phone: [facility] 01-25-2023 10:28-0500 SaO2% (BldA) [Mass fraction] 97 % Dr. Katarina Medina Work Phone: [facility] 01-25-2023 10:28-0500 Systolic blood pressure 186 mm[Hg] Dr. Katarina Medina Work Phone: [facility] 01-14-2023 14:12-0500 Body height 165.1 cm Mi Douglas MD Work Phone: [facility] 01-14-2023 14:12-0500 Body temperature 96.69 [degF] Mi Douglas MD Work Phone: [facility] 01-14-2023 14:12-0500 Body weight 67.68 kg Mi Douglas MD Work Phone: [facility] 01-14-2023 14:12-0500 Diastolic blood pressure 92 mm[Hg] Mi Douglas MD Work Phone: [facility] 01-14-2023 14:12-0500 Heart rate 70 /min Mi Douglas MD Work Phone: [facility] 01-14-2023 14:12-0500 SaO2% (BldA) [Mass fraction] 96 % Mi Douglas MD Work Phone: [facility] 01-14-2023 14:12-0500 Systolic blood pressure 150 mm[Hg] Mi Douglas MD Work Phone: [facility] 12-21-2022 11:43-0400 Body temperature 97.9 [degF] Pauline Muse APRN.CUSTOMER ASSOCIATE Work Phone: [facility] 12-21-2022 11:43-0400 Body weight 67.31 kg Pauline Muse APRN.CUSTOMER ASSOCIATE Work Phone: [facility] 12-21-2022 11:43-0400 Diastolic blood pressure 73 mm[Hg] Pauline Muse APRN.CUSTOMER ASSOCIATE Work Phone: [facility] 12-21-2022 11:43-0400 Heart rate 66 /min Pauline Muse APRN.CUSTOMER ASSOCIATE Work Phone: [facility] 12-21-2022 11:43-0400 Respiratory rate 18 /min Pauline Muse APRN.CUSTOMER ASSOCIATE Work Phone: [facility] 12-21-2022 11:43-0400 SaO2% (BldA) [Mass fraction] 98 % Pauline Muse APRN.CUSTOMER ASSOCIATE Work Phone: [facility] 12-21-2022 11:43-0400 Systolic blood pressure 189 mm[Hg] Pauline Muse APRN.CUSTOMER ASSOCIATE Work Phone: [facility] 12-15-2022 10:58-0400 Body temperature 97.59 [degF] Pauline Muse APRN.CUSTOMER ASSOCIATE Work Phone: [facility] 12-15-2022 10:58-0400 Body weight 67.13 kg Pauline Muse APRN.CUSTOMER ASSOCIATE Work Phone: [facility] 12-15-2022 10:58-0400 Diastolic blood pressure 72 mm[Hg] Pauline Muse APRN.CUSTOMER ASSOCIATE Work Phone: [facility] 12-15-2022 10:58-0400 Heart rate 80 /min Pauline Muse APRN.CUSTOMER ASSOCIATE Work Phone: [facility] 12-15-2022 10:58-0400 Respiratory rate 16 /min Pauline Muse APRN.CUSTOMER ASSOCIATE Work Phone: [facility] 12-15-2022 10:58-0400 SaO2% (BldA) [Mass fraction] 98 % Pauline Muse APRN.CUSTOMER ASSOCIATE Work Phone: [facility] 12-15-2022 10:58-0400 Systolic blood pressure 124 mm[Hg] Pauline Muse APRN.CUSTOMER ASSOCIATE Work Phone: [facility] 12-09-2022 08:01-0400 Body height 165.[address] Katarina Medina Work Phone: [facility] 12-09-2022 08:01-0400 Body mass index (BMI) [Ratio] 24.8 kg/m2 Dr. Katarina Medina Work Phone: [facility] 12-09-2022 08:01-0400 Body temperature 97.9 [degF] Dr. Katarina Medina Work Phone: [facility] 12-09-2022 08:01-0400 Body weight 67.[address] Katarina Medina Work Phone: [facility] 12-09-2022 08:01-0400 Diastolic blood pressure 73 mm[Hg] Dr. Katarina Medina Work Phone: [facility] 12-09-2022 08:01-0400 Heart rate 60 /min Dr. Katarina Medina Work Phone: [facility] 12-09-2022 08:01-0400 Respiratory rate 16 /min Dr. Katarina Medina Work Phone: [facility] 12-09-2022 08:01-0400 SaO2% (BldA) [Mass fraction] 97 % Dr. Katarina Medina Work Phone: [facility] 12-09-2022 08:01-0400 Systolic blood pressure 148 mm[Hg] Dr. Katarina Medina Work Phone: [facility] 10-28-2022 14:50-0400 Body temperature 97.59 [degF] Eva Athy PA-C Work Phone: [facility] 10-28-2022 14:50-0400 Body weight 67.41 kg Eva Athy PA-C Work Phone: [facility] 10-28-2022 14:50-0400 Diastolic blood pressure 72 mm[Hg] Eva Athy PA-C Work Phone: [facility] 10-28-2022 14:50-0400 Heart rate 65 /min Eva Athy PA-C Work Phone: [facility] 10-28-2022 14:50-0400 Respiratory rate 18 /min Eva Athy PA-C Work Phone: [facility] 10-28-2022 14:50-0400 SaO2% (BldA) [Mass fraction] 97 % Eva Athy PA-C Work Phone: [facility] 10-28-2022 14:50-0400 Systolic blood pressure 195 mm[Hg] Eva Heard PA-C Work Phone: [facility] 08-14-2022 09:55-0400 Diastolic blood pressure 62 mm[Hg] Treatment Wstr Work Phone: [facility] 08-14-2022 09:55-0400 Heart rate 78 /min Treatment Wstr Work Phone: [facility] 08-14-2022 09:55-0400 Systolic blood pressure 148 mm[Hg] Treatment Wstr Work Phone: [facility] 07-15-2022 07:27-0400 Body temperature 98.49 [degF] Izabel Flaquita STUMMEL SELECTOR.CUSTOMER ASSOCIATE Work Phone: [facility] 07-15-2022 07:27-0400 Body weight 67.95 kg Izabel Sams STUMMEL SELECTOR.CUSTOMER ASSOCIATE Work Phone: [facility] 07-15-2022 07:27-0400 Diastolic blood pressure 62 mm[Hg] Izabel Flaquita STUMMEL SELECTOR.CUSTOMER ASSOCIATE Work Phone: [facility] 07-15-2022 07:27-0400 Heart rate 88 /min Izabel Flaquita STUMMEL SELECTOR.CUSTOMER ASSOCIATE Work Phone: [facility] 07-15-2022 07:27-0400 Respiratory rate 18 /min Izabel Flaquita STUMMEL SELECTOR.CUSTOMER ASSOCIATE Work Phone: [facility] 07-15-2022 07:27-0400 SaO2% (BldA) [Mass fraction] 98 % Izabelafsaneh Vazquezk STUMMEL SELECTOR.CUSTOMER ASSOCIATE Work Phone: [facility] 07-15-2022 07:27-0400 Systolic blood pressure 128 mm[Hg] Izabel Flaquita STUMMEL SELECTOR.CUSTOMER ASSOCIATE Work Phone: [facility] 05-22-2022 09:00-0400 Diastolic blood pressure 67 mm[Hg] Treatment Wstr Work Phone: [facility] 05-22-2022 09:00-0400 Heart rate 82 /min Treatment Wstr Work Phone: [facility] 05-22-2022 09:00-0400 Systolic blood pressure 160 mm[Hg] Treatment Wstr Work Phone: [facility] 05-22-2022 08:12-0400 Body height 164.7 cm Luis Calhouni DO Work Phone: [facility] 05-22-2022 08:12-0400 Body temperature 98.71 [degF] Luis Masci DO Work Phone: [facility] 05-22-2022 08:12-0400 Body weight 68.27 kg Luis Masci DO Work Phone: [facility] 05-22-2022 08:12-0400 Diastolic blood pressure 70 mm[Hg] Luis Masci DO Work Phone: [facility] 05-22-2022 08:12-0400 Heart rate 74 /min Luis Masci DO Work Phone: [facility] 05-22-2022 08:12-0400 SaO2% (BldA) [Mass fraction] 99 % Luis Masci DO Work Phone: [facility] 05-22-2022 08:12-0400 Systolic blood pressure 158 mm[Hg] Luis Masci DO Work Phone: [facility] 01-08-2022 15:09-0400 Body height 165.1 cm Mi Douglas MD Work Phone: [facility] 01-08-2022 15:09-0400 Body temperature 97.9 [degF] Mi Douglas MD Work Phone: [facility] 01-08-2022 15:09-0400 Body weight 70.31 kg Mi Douglas MD Work Phone: [facility] 01-08-2022 15:09-0400 Diastolic blood pressure 58 mm[Hg] Mi Douglas MD Work Phone: [facility] 01-08-2022 15:09-0400 Heart rate 75 /min Mi Douglas MD Work Phone: [facility] 01-08-2022 15:09-0400 SaO2% (BldA) [Mass fraction] 97 % Mi Douglas MD Work Phone: [facility] 01-08-2022 15:09-0400 Systolic blood pressure 140 mm[Hg] Mi Douglas MD Work Phone: [facility] 12-20-2021 10:04-0400 Body temperature 98.1 [degF] Dr. Katarina Medina Work Phone: [facility] Work Phone: 12-20-2021 10:04-0400 Body weight 69.[address] Katarina Medina Work Phone: [facility] Work Phone: 12-20-2021 10:04-0400 Diastolic blood pressure 80 mm[Hg] Dr. Katarina Medina Work Phone: [facility] Work Phone: 12-20-2021 10:04-0400 Heart rate 66 /min Dr. Katarina Medina Work Phone: [facility] Work Phone: 12-20-2021 10:04-0400 Respiratory rate 16 /min Dr. Katarina Medina Work Phone: [facility] Work Phone: 12-20-2021 10:04-0400 SaO2% (BldA) [Mass fraction] 96 % Dr. Katarina Medina Work Phone: [facility] Work Phone: 12-20-2021 10:04-0400 Systolic blood pressure 156 mm[Hg] Dr. Katarina Medina Work Phone: [facility] Work Phone: 11-21-2021 09:23-0400 Diastolic blood pressure 64 mm[Hg] Treatment Wstr Work Phone: [facility] 11-21-2021 09:23-0400 Heart rate 59 /min Treatment Wstr Work Phone: [facility] 11-21-2021 09:23-0400 Systolic blood pressure 164 mm[Hg] Treatment Wstr Work Phone: [facility] 11-21-2021 08:46-0400 Body temperature 98.1 [degF] Treatment Wstr Work Phone: [facility] 11-21-2021 08:46-0400 Respiratory rate 16 /min Treatment Wstr Work Phone: [facility] 10-31-2021 15:36-0400 Diastolic blood pressure 51 mm[Hg] Dr. Katarina Medina Work Phone: [facility] Work Phone: 10-31-2021 15:36-0400 Heart rate 52 /min Dr. Katarina Medina Work Phone: [facility] Work Phone: 10-31-2021 15:36-0400 Respiratory rate 16 /min Dr. Katarina Medina Work Phone: [facility] Work Phone: 10-31-2021 15:36-0400 Systolic blood pressure 149 mm[Hg] Dr. Katarina Medina Work Phone: [facility] Work Phone: 10-31-2021 12:44-0400 Body height 165.[address] Katarina Medina Work Phone: [facility] Work Phone: 10-31-2021 12:44-0400 Body mass index (BMI) [Ratio] 26.2 kg/m2 Dr. Katarina Medina Work Phone: [facility] Work Phone: 10-31-2021 12:44-0400 Body temperature 98.1 [degF] Dr. Katarina Medina Work Phone: [facility] Work Phone: 10-31-2021 12:44-0400 Body weight 71.[address] Katarina Medina Work Phone: [facility] Work Phone: 10-31-2021 12:44-0400 SaO2% (BldA) [Mass fraction] 98 % Dr. Katarina Medina Work Phone: [facility] Work Phone: 08-15-2021 09:42-0400 Diastolic blood pressure 58 mm[Hg] Treatment Wstr Work Phone: [facility] 08-15-2021 09:42-0400 Heart rate 72 /min Treatment Wstr Work Phone: [facility] 08-15-2021 09:42-0400 Systolic blood pressure 152 mm[Hg] Treatment Wstr Work Phone: [facility] 08-15-2021 09:16-0400 Body temperature 97.59 [degF] Treatment tr Work Phone: [facility] 08-02-2021 13:37-0400 Body mass index (BMI) [Ratio] 25.3 kg/m2 Dr. Katarina Medina Work Phone: [facility] Work Phone: 08-02-2021 13:37-0400 Body temperature 98.1 [degF] Dr. Katarina Medina Work Phone: [facility] Work Phone: 08-02-2021 13:37-0400 Body weight 71.[address] Katarina Medina Work Phone: [facility] Work Phone: 08-02-2021 13:37-0400 Diastolic blood pressure 62 mm[Hg] Dr. Katarina Medina Work Phone: [facility] Work Phone: 08-02-2021 13:37-0400 Heart rate 63 /min Dr. Katarina Medina Work Phone: [facility] Work Phone: 08-02-2021 13:37-0400 Respiratory rate 16 /min Dr. Katarina Medina Work Phone: [facility] Work Phone: 08-02-2021 13:37-0400 SaO2% (BldA) [Mass fraction] 97 % Dr. Katarina Medina Work Phone: [facility] Work Phone: 08-02-2021 13:37-0400 Systolic blood pressure 132 mm[Hg] Dr. Katarina Medina Work Phone: [facility] Work Phone: 08-02-2021 13:37-0400 Body height 167.[address] Katarina Medina Work Phone: [facility] Work Phone: 08-02-2021 13:37-0400 Body mass index (BMI) [Ratio] 25.3 kg/m2 Dr. Katarina Medina Work Phone: [facility] Work Phone: 08-02-2021 13:37-0400 Body temperature 98.1 [degF] Dr. Katarina Medina Work Phone: [facility] Work Phone: 08-02-2021 13:37-0400 Body weight 71.[address] Katarina Medina Work Phone: [facility] Work Phone: 08-02-2021 13:37-0400 Diastolic blood pressure 62 mm[Hg] Dr. Katarina Medina Work Phone: [facility] Work Phone: 08-02-2021 13:37-0400 Heart rate 63 /min Dr. Katarina Medina Work Phone: [facility] Work Phone: 08-02-2021 13:37-0400 Respiratory rate 16 /min Dr. Katarina Medina Work Phone: [facility] Work Phone: 08-02-2021 13:37-0400 SaO2% (BldA) [Mass fraction] 97 % Dr. Katarina Medina Work Phone: [facility] Work Phone: 08-02-2021 13:37-0400 Systolic blood pressure 132 mm[Hg] Dr. Katarina Medina Work Phone: [facility] Work Phone: 05-28-2021 09:29-0400 Body height 167.[address] Katarina Medina Work Phone: [facility] Work Phone: 05-28-2021 09:29-0400 Body mass index (BMI) [Ratio] 25 kg/m2 Dr. Katarina Medina Work Phone: [facility] Work Phone: 05-28-2021 09:29-0400 Body temperature 97.9 [degF] Dr. Katarina Medina Work Phone: [facility] Work Phone: 05-28-2021 09:29-0400 Body weight 70.[address] Katarina Medina Work Phone: [facility] Work Phone: 05-28-2021 09:29-0400 Diastolic blood pressure 80 mm[Hg] Dr. Katarina Medina Work Phone: [facility] Work Phone: 05-28-2021 09:29-0400 Heart rate 58 /min Dr. Katarina Medina Work Phone: [facility] Work Phone: 05-28-2021 09:29-0400 Respiratory rate 16 /min Dr. Katarina Medina Work Phone: [facility] Work Phone: 05-28-2021 09:29-0400 SaO2% (BldA) [Mass fraction] 97 % Dr. Katarina Medina Work Phone: [facility] Work Phone: 05-28-2021 09:29-0400 Systolic blood pressure 138 mm[Hg] Dr. Katarina Medina Work Phone: [facility] Work Phone: Encounters Encounter Date Encounter Type Care Provider Facility Start: 01-04-2025 End: 01-04-2025 ambulatory KATARINA MEDINA Facility:[facility] Start: 01-03-2025 End: 01-03-2025 ambulatory KATARINA MEDINA Facility:[facility] Start: 12-27-2024 End: 12-27-2024 ambulatory Katarina Medina Facility:[facility] Start: 12-01-2024 End: 12-01-2024 Emergency department patient visit Dr. Chico Enriquez MD -Emergency Department Work Phone: Start: 10-18-2024 End: 10-18-[address] Katarina Medina MD Work Phone: -Laboratory Specimen Start: 10-18-2024 End: 10-18-2024 Patient encounter procedure Moose REED -Laboratory Specimen Work Phone: Start: 10-18-2024 End: 10-18-2024 Patient encounter procedure Moose REED [facility] Work Phone: Start: 10-18-2024 End: 10-18-[address] Katarina Medina MD Work Phone: [facility] Start: 10-18-2024 End: 10-18-2024 ambulatory Moose REED Facility: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 Katarina Medina MD -[facility] Work Phone: Start: 09-15-2024 End: 09-15-[address] Katarina Medina MD Work Phone: -[facility] [employer] [facility] Start: 09-12-2024 End: 09-12-2024 Emergency department patient [...] 09-01-2024 End: 09-01-2024 Patient encounter procedure [place] -[facility] Work Phone: Start: 09-01-2024 End: 09-01-[address] Katarina Medina MD Work Phone: [facility] Work Phone: Start: 08-31-2024 End: 08-31-2024 ambulatory KATARINA MEDINA Facility:[facility] Start: 08-27-2024 End: 08-30-2024 Telephone encounter Luis Ron DO Work Phone: Hematology/Oncology Comment on above: Patient Update Start: 07-30-2024 End: 07-30-2024 Patient encounter procedure Pascual Fletcher DO -[facility] Work Phone: Start: 07-30-2024 End: 07-30-2024 ambulatory Katarina Medina Facility:[facility] Start: 07-20-2024 End: 07-20-2024 Infusion Center Treatment Rm 6 [facility] Work Phone: Hematology/Oncology Comment on above: Disorder of iron metabolism (Primary Dx) Start: 07-19-2024 End: 07-19-2024 ambulatory KATARINA MEDINA Facility:[facility] Start: 07-16-2024 End: 07-16-[address] Katarina Medina MD Work Phone: [facility] Work Phone: Start: 07-16-2024 End: 07-16-2024 Patient encounter procedure Pascual Fletcher DO -Laboratory Work Phone: Start: 07-16-2024 End: 07-16-2024 Patient encounter procedure Pascual Fletcher DO -[facility] Work Phone: Start: 07-16-2024 End: 07-16-2024 ambulatory Katarina Medina Facility:[facility] Start: 07-16-2024 End: 07-16-2024 ambulatory Katarina Mdeina Facility:[facility] Start: 06-30-2024 End: 06-30-[address] Katarina Medina MD -[facility] Work Phone: Start: 06-30-2024 End: 06-30-2024 ambulatory [...] neovascularization (HCC) Start: 06-16-2024 End: 06-16-2024 ambulatory KATARINA MEDINA Facility:[facility] Start: 06-08-2024 End: 06-08-2024 ambulatory KATARINAFARIDEH MEDINA Facility:[facility] Start: 06-02-2024 End: 06-02-2024 Chart abstracting Jacqueline Griffiths MD Work Phone: Ophthalmology Start: 05-27-2024 End: 05-27-2024 ambulatory OLI AVERY Facility:[facility] Start: 05-27-2024 End: 05-27-2024 Patient encounter procedure Airam Alvarado APRN.CNP Work Phone: Functional Medicine Comment on above: Alteration in metabolic function (Primar y Dx); Brain fog; Allergy, initial encounter; High vitamin D level Start: 05-20-2024 End: 05-20-2024 E-mail encounter from caregiver Airam Jenny FARR Work Phone: Functional Medicine Start: 05-20-2024 End: 05-20-2024 Nutrition therapy Airam Alvarado APRN.CNP Work Phone: Functional Medicine Comment on above: [facility] Nutrition Questionnaire Start: 04-27-2024 End: 04-27-2024 Infusion Center Treatment Rm 6 [facility] Work Phone: Hematology/Oncology Comment on above: Hereditary hemochromatosis (HCC) (Primar y Dx); Disorder of iron metabolism Start: 04-26-2024 End: 04-26-2024 ambulatory KATARINA MEDINA Facility:[facility] Start: 04-19-2024 End: 04-19-2024 Office outpatient visit 25 minutes Oli Avery MD Work Phone: [facility] Comment on above: Silent cerebral infarction (HCC) (Primar y Dx); Mild cognitive impairment; Functional gastrointestinal disorder Start: 04-19-2024 End: 04-19-2024 ambulatory KATARINAFARIDEH MEDINA Facility:[facility] Start: 03-26-2024 End: 03-26-2024 Emergency department patient visit SHEILA CHAN MD [facility] Start: 03-25-2024 End: 03-25-2024 ambulatory KATARINA MEDINA Facility:[facility] Start: 02-11-2024 End: 02-11-2024 ambulatory Katarina Medina Facility:[facility] Start: 02-03-2024 End: 02-03-2024 Infusion Center Treatment Rm 4 [facility] Work Phone: Hematology/Oncology Comment on above: Disorder of iron metabolism (Primary Dx) Start: 02-02-2024 End: 02-02-2024 Orders Only Luis Ron DO Work Phone: Hematology/Oncology Comment on above: Hereditary hemochromatosis (HCC) (Primar y Dx) Start: 01-16-2024 End: 01-16-2024 ambulatory LUIS RON Facility:[facility] Start: 01-16-2024 End: 01-16-2024 Subsequent hospital visit by physician Screen M[facility] Mammogram Comment on above: Encounter for screening breast examinati on [Z12.39] Start: 11-11-2023 End: 11-11-2023 ambulatory Luis Ron DO Work Phone: Hematology/Oncology Comment on above: Hereditary hemochromatosis (HCC) (Primar y Dx); Encounter for screening breast examination Hereditary hemochrom atosis (HCC) (Primary Dx); Disorder of iron metabolism Start: 11-11-2023 End: 11-11-2023 Patient encounter procedure Luis Ron DO Work Phone: Hematology/Oncology Start: 10-01-2023 Telephone encounter Mi Douglas MD Work Phone: [address] [place] [address] Start: 09-29-2023 Telephone encounter Oli Avery MD Work Phone: [facility] Comment on above: 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) Start: 09-25-2023 End: 09-25-2023 Patient encounter [...] 08-19-2023 Infusion Center Treatment Rm 7 [facility] Work Phone: Hematology/Oncology Comment on above: Disorder of iron metabolism (Primary Dx) Start: 08-15-2023 ambulatory Airam Martinez APRN.CUSTOMER ASSOCIATE Work Phone: Neurology Comment on above: Update Start: 08-15-2023 E-mail encounter from caregiver Airam Michelle BARDALESCUSTOMER ASSOCIATE Work Phone: Neurology Start: 08-15-2023 End: 08-15-2023 Patient encounter procedure Airam Maritnez APRN.CUSTOMER ASSOCIATE Work Phone: Neurology Comment on above: Subjective memory complaints (Primary Dx ); Impaired memory; Forgetfulness Start: 08-11-2023 Telephone encounter Luis Ron DO Work Phone: Hematology/Oncology Comment on above: Patient Question Start: 08-09-2023 End: 08-09-2023 Patient encounter procedure Pauline Muse APRN.CUSTOMER ASSOCIATE Work Phone: [facility] Comment on above: Medication management (Primary Dx) Start: 07-01-2023 Non-patient / Non-visit Dr. Katarina Medina Work Phone: [facility] Start: 07-01-2023 End: 07-01-[address] Katarina Medina Work Phone: [facility] Work Phone: Start: 07-01-2023 End: 07-01-[address] Katarina Medina Work Phone: [facility]-Cardiovascula r Services Work Phone: Start: 05-28-2023 End: 05-28-[address] Katarina Medina Work Phone: [facility] Work Phone: Start: 05-13-2023 End: 05-13-2023 Infusion Center Treatment Rm 9 [facility] Work Phone: Hematology/Oncology Comment on above: Disorder of iron metabolism (Primary Dx) Start: 05-08-2023 Telephone encounter Sonia Martinez APRN.CUSTOMER ASSOCIATE Work Phone: Hematology/Oncology Comment on above: Patient Update Start: 02-14-2023 Telephone encounter Mi Douglas MD Work Phone: General Surgery Start: 02-11-2023 End: 02-11-2023 Infusion Center Treatment Rm 12 [facility] Work Phone: Hematology/Oncology Comment on above: Disorder of iron metabolism (Primary Dx) Start: 02-10-2023 Orders Only Luis Ron DO Work Phone: Hematology/Oncology Comment on above: Hereditary hemochromatosis (HCC) (Primar y Dx); Secondary polycythemia Start: 01-27-2023 End: 01-27-[address] Katarina Medina Work Phone: [facility] Work Phone: Start: 01-27-2023 End: 01-27-[address] Katarina Medina Work Phone: [facility]-Laboratory, Specimen Work Phone: Start: 01-25-2023 End: 01-25-[address] Katarina Medina Work Phone: [facility] Work Phone: Start: 01-14-2023 End: 01-14-2023 Patient encounter procedure Mi Douglas MD Work Phone: General Surgery Comment on above: Screening for colon cancer (Primary Dx) Start: 01-07-2023 End: 01-07-2023 Subsequent hospital visit by physician Screen Mamm[facility] Mammogram Comment on above: Screening breast examination [Z12.39] Start: 12-26-2022 Telephone encounter Pauline Muse APRN.CUSTOMER ASSOCIATE Work Phone: [facility] Comment on above: Results Start: 12-21-2022 End: 12-21-2022 Patient encounter procedure Pauline Muse APRN.CUSTOMER ASSOCIATE Work Phone: [facility] Comment on above: Rectal bleeding (Primary Dx) Start: 12-15-2022 End: 12-15-2022 Patient encounter procedure Pauline Muse APRN.CUSTOMER ASSOCIATE Work Phone: [facility] Comment on above: Urinary frequency (Primary Dx); Recurrent UTI (urinary tract infection) Start: 12-09-2022 End: 12-09-[address] [facility] Start: 12-09-2022 End: 12-09-[address] Katarina Medina Work Phone: [facility] Work Phone: Start: 11-01-2022 End: 11-01-[address] Katarina Medina Work Phone: [facility] Work Phone: Start: 11-01-2022 End: 11-01-[address] [facility] Start: 10-28-2022 End: 10-28-2022 Patient encounter procedure Eva Heard PA-C Work Phone: [facility] Comment on above: Throat irritation (Primary Dx) Start: 10-25-2022 Telephone encounter Mi Douglas MD Work Phone: [place] [facility] Adult Comment on above: Orders Start: 10-24-2022 Telephone encounter Mi Douglas MD Work Phone: General Surgery Comment on above: Orders Start: 08-14-2022 End: 08-14-2022 Infusion Center Treatment Rm 7 [facility] Work Phone: Hematology/Oncology Comment on above: Disorder of iron metabolism (Primary Dx) ; Hereditary hemochromatosis (HCC) Start: 08-12-2022 Orders Only Luis Ron DO Work Phone: Hematology/Oncology Comment on above: Hereditary hemochromatosis (HCC) (Primar y Dx); Secondary polycythemia; History of ductal carcinoma in situ (DCIS) of breast Start: 07-15-2022 End: 07-15-2022 Patient encounter procedure Izabel Sams APRN.CUSTOMER ASSOCIATE Work Phone: [facility] Comment on above: URI with cough and congestion (Primary D x) Start: 06-13-2022 Telephone encounter Luis Ron DO Work Phone: Hematology/Oncology Comment on above: Results (US Liver) Start: 06-03-2022 End: 06-03-2022 Subsequent hospital visit by physician [facility] 2 Work Phone: Radiology Comment [...] encounter procedure Luis Ron DO Work Phone: [facility] Start: 05-21-2022 Orders Only Luis Ron DO [...] Start: 01-04-2022 Documentation procedure Mammography Coordinator [facility] Start: 01-04-2022 Letter encounter Mammography Coordinator [facility] Department Start: 01-03-2022 End: 01-03-2022 Subsequent hospital visit by physician Screen Mamm[facility] Mammogram Comment on above: 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 Katarina Medina Work Phone: [facility] Work Phone: Start: 12-20-2021 End: 12-20-[address] Katarina Medina Work Phone: [facility]-Laboratory Start: 12-20-2021 End: 12-20-[address] Katarina Medina Work Phone: [facility] Start: 11-21-2021 End: 11-21-2021 Infusion Center Treatment Rm 11 [facility] Work Phone: Hematology/Oncology Comment on above: Disorder of iron metabolism (Primary Dx) Start: 10-31-2021 End: 10-31-2021 Emergency department patient visit Dr. Katarina Medina Work Phone: [facility]-Emergency Department Start: 10-30-2021 Telephone encounter Luis Ron DO Work Phone: Hematology/Oncology Comment on above: Future Appointment Start: 08-16-2021 End: 08-16-[address] Katarina Medina Work Phone: [facility]-Outpatient Bone Densitometry Start: 08-15-2021 End: 08-15-2021 Infusion Center Treatment Rm 6 [facility] Work Phone: Hematology/Oncology Comment on above: Hereditary hemochromatosis (HCC) (Primar y Dx); Disorder of iron metabolism Start: 08-02-2021 End: 08-02-[address] [facility] Med[facility] Start: 08-02-2021 End: 08-02-[address] Katarina Medina Work Phone: [facility] Internal Medicine Start: 07-18-2021 Telephone encounter Luis Ron DO Work Phone: Hematology/Oncology Comment on above: Appointment Start: 05-28-2021 End: 05-28-[address] [facility] Med[facility] Start: 05-28-2021 End: 05-28-[address] Katarina Medina Work Phone: [facility] Internal Medicine Start: 03-23-2021 End: 03-23-[address] [facility] Med[facility] Date Procedure Procedure Detail Performing Clinician Start: 12-01-2024 Plain chest X-ray Dr. Katarina Medina MD Work Phone: Start: 12-01-[address] Katarina Medina MD Work Phone: Start: 10-18-[address] Katarina Medina MD Work Phone: Start: 09-12-2024 X-ray of knee, four or more views Dr. Katarina Medina MD Work Phone: Start: 09-12-2024 X-ray of chest, PA and lateral views Dr. Katarina Medina MD Work Phone: Start: 07-16-2024 Albumin/Globulin ratio Dr. Katarina zamora MD Work Phone: Start: 07-16-[address] Katarina Medina MD Work Phone: Start: 06-16-2024 Computerized ophthalmic imaging optic nerve Jacqueline Griffiths MD Work Phone: Start: 09-02-2023 3d rendering w/interp&postproc diff work station Airam Dimabelardo STUMMEL SELECTOR.CUSTOMER ASSOCIATE Work Phone: Start: 09-02-2023 Mri brain brain stem w/o contrast material Airam Martinez STUMMEL SELECTOR.CUSTOMER ASSOCIATE Work Phone: Start: 01-27-[address] Katarina Medina Work Phone: Start: 01-07-2023 Screening mammography bi 2-view breast inc cory Douglas MD Work Phone: Start: 12-15-2022 Urnls dip stick/tablet rgnt auto w/o microscopy Zo Boyce STUMMEL SELECTOR.CUSTOMER ASSOCIATE Work Phone: Start: 06-03-2022 Us abdominal real [...] DTaP,Tdap,Td Vaccine (3 - Td or Tdap) [facility] Start: 01-31-2028 Urine microalbumin profile [facility] Start: 10-12-2027 Diabetes Screening Diabetes Screening [facility] Start: 02-01-2027 Diabetes Screening Diabetes Screening [facility] Start: 11-06-2026 Diabetes Screening Diabetes Screening [facility] Start: 09-25-2026 Diabetes Screening Diabetes Screening [facility] Start: 05-11-2026 Diabetes Screening Diabetes Screening [facility] Start: 10-12-2025 End: 10-12-2025 ambulatory [facility] Laboratory Comment on above: CBC/IRON STUDIES/CMP/AFP 1YR OV/EARLY LABS Start: 05-21-2025 DIABETES SCREEN DIABETES SCREEN [facility] Start: 05-21-2025 Diabetes Screening Diabetes Screening [facility] Start: 01-04-2025 End: 01-04-2025 ambulatory 01/04/2025 9:00 AM EDT [facility] Center Hematology/Oncology [address] [place] [address] Q3MO PHLEBO/LAB DAY PRIOR* Hematology/Oncology Comment on above: Q3MO PHLEBO/LAB DAY PRIOR* Start: 01-03-2025 End: 01-03-2025 ambulatory 01/03/2025 8:00 AM EDT Results Only [facility] [address] [place] [id number] (SO)CBC/FERRITN* [facility] Laboratory Comment on above: (SO)CBC/FERRITN* Start: 12-01-2024 End: 12-01-[address] [facility] Start: 11-10-2024 End: 11-10-2024 ambulatory [facility] Laboratory Comment on above: CBC/CMP/AFR/IRON* 1YR/PHLEBO TODAY* Start: 11-08-2024 Influenza vaccination [facility] Start: 10-12-2024 End: 10-12-2024 ambulatory Hematology/Oncology Comment on above: 1YR/LAB 8/4/PHLEBO TODAY* Q3MO PHLEBO/LAB 8/4/ OV EARLY* pt request lab day prior to tx Start: 10-11-2024 End: 10-11-2024 ambulatory 10/11/2024 8:00 AM EDT Results Only [facility] [address] [place] [id number] (SO)CBC/CMP/IRON STUDIES/AFR* [facility] Laboratory Comment on above: (SO)CBC/CMP/IRON STUDIES/AFR* Start: 09-12-2024 End: 09-12-[address] [facility] Start: 09-12-2024 X-ray of knee, four or more views Knee 4 or More Views [facility] Start: 09-12-2024 XR Knee GE [address] [facility] Start: 08-23-2024 End: 08-23-2024 Patient encounter procedure 08/23/2024 10:15 AM EDT Office Visit Functional Medicine [address] [address] Airam Alvarado APRN.CUSTOMER ASSOCIATE [address] [id number] 12 week follow up Functional Medicine Comment on above: 12 week follow up Start: 07-30-2024 Patient referral [facility] Work Phone: Start: 07-20-2024 End: 07-20-2024 ambulatory 07/20/2024 9:00 AM EDT Infusion Center Hematology/Oncology [address] [place] [id number] Q3MO PHLEBO/LAB 07/19* pt request lab day prior to tx Hematology/Oncology Comment on above: Q3MO PHLEBO/LAB 07/19* pt request lab day prior to tx Start: 07-19-2024 End: 07-19-2024 ambulatory [facility] Comment on above: (SO)CBC/CMP/IRON STUDIES* (SO)CBC/FERRITN* Start: 06-16-2024 End: 06-16-2024 Patient encounter procedure Ophthalmology Comment on above: UNCONTROLLED GLAUCOMA POSSIBLE OPEN ANGL E [IOP, dilate, OCT RN FL] UNCONTROLLED GLAUCOMA POSSIBLE OPEN ANGLE Start: 06-15-2024 End: 06-15-2024 ambulatory 06/15/2024 10:15 AM EDT Education Functional Medicine [address] nutrtition Functional Medicine Comment on above: nutrtition Start: 06-03-2024 End: 06-03-2024 ambulatory 06/03/2024 10:30 AM EDT Education Functional Medicine [address] [address] Sharlene Alberts, Health ED [address] [address] health assistant cross country coach Functional Medicine Comment on above: health assistant cross country coach Start: 05-27-2024 End: 05-27-2024 ambulatory 05/27/2024 3:15 PM EDT Results Only [facility] [place] [facility] [address] [address] LAB [facility] [place] [facility] Comment on above: LAB Start: 05-27-2024 End: 08-26-2024 25-hydroxyvitamin D3 [Mass/volume] in Serum or Plasma VITAMIN D 25 HYDROXY Lab Routine Alteration in metabolic function Brain fog Allergy, initial encounter Expected: 05/27/2024, Expires: 08/26/2024 [facility] Comment on above: Expected: 05/27/2024, Expires: Start: 05-27-2024 End: 08-26-2024 Arsenic [Mass/volume] in Blood ARSENIC BLD Lab Routine Alteration in metabolic function Brain fog Allergy, initial encounter Expected: 05/27/2024, Expires: 08/26/2024 [facility] Comment on above: Expected: 05/27/2024, Expires: Start: 05-27-2024 End: 08-26-2024 Cadmium [Mass/volume] in Blood CADMIUM BLOOD Lab Routine Alteration in metabolic function Brain fog Allergy, initial encounter Expected: 05/27/2024, Expires: 08/26/2024 [facility] Comment on above: Expected: 05/27/2024, Expires: Start: 05-27-2024 End: 08-26-2024 Cobalamin (Vitamin B12) [Mass/volume] in Serum or Plasma VITAMIN B12 Lab Routine Alteration in metabolic function Brain fog Allergy, initial encounter Expected: 05/27/2024, Expires: 08/26/2024 [facility] Comment on above: Expected: 05/27/2024, Expires: Start: 05-27-2024 End: 08-26-2024 COPPER BLOOD COPPER BLOOD Lab Routine Alteration in metabolic function Brain fog Allergy, initial encounter Expected: 05/27/2024, Expires: 08/26/2024 [facility] [facility] Comment on above: Expected: 05/27/2024, Expires: Start: 05-27-2024 End: 08-26-2024 Folate [Mass/volume] in Serum or Plasma FOLATE, SERUM Lab Routine Alteration in metabolic function Brain fog Allergy, initial encounter Expected: 05/27/2024, Expires: 08/26/2024 [facility] Comment on above: Expected: 05/27/2024, Expires: Start: 05-27-2024 End: 08-26-2024 Hemoglobin A1c in Blood HEMOGLOBIN A1C Lab Routine Alteration in metabolic function Brain fog Allergy, initial encounter Expected: 05/27/2024, Expires: 08/26/2024 [facility] Comment on above: Expected: 05/27/2024, Expires: Start: 05-27-2024 End: 08-26-2024 Insulin [Units/volume] in Serum or Plasma INSULIN, TOTAL, SERUM Lab Routine Alteration in metabolic function Brain fog Allergy, initial encounter Expected: 05/27/2024, Expires: 08/26/2024 [facility] Comment on above: Expected: 05/27/2024, Expires: Start: 05-27-2024 End: 08-26-2024 Lead [Mass/volume] in Blood LEAD BLOOD Lab Routine Alteration in metabolic function Brain fog Allergy, initial encounter Expected: 05/27/2024, Expires: 08/26/2024 [facility] Comment on above: Expected: 05/27/2024, Expires: Start: 05-27-2024 End: 08-26-2024 Magnesium [Mass/volume] in Serum or Plasma MAGNESIUM Lab Routine Alteration in metabolic function Brain fog Allergy, initial encounter Expected: 05/27/2024, Expires: 08/26/2024 [facility] Work Phone: Comment on above: Expected: 05/27/2024, Expires: Start: 05-27-2024 End: 08-26-2024 Mercury [Mass/volume] in Blood MERCURY BLD Lab Routine Alteration in metabolic function Brain fog Allergy, initial encounter Expected: 05/27/2024, Expires: 08/26/2024 [facility] Comment on above: Expected: 05/27/2024, Expires: Start: 05-27-2024 End: 08-26-2024 OMEGACHECK OMEGACHECK Lab Routine Alteration in metabolic function Brain fog Allergy, initial encounter Expected: 05/27/2024, Expires: 08/26/2024 [facility] Comment on above: Expected: 05/27/2024, Expires: Start: 05-27-2024 End: 05-27-2024 Patient encounter procedure 05/27/2024 2:00 PM EDT Office Visit Functional Medicine [address] [address] Airam Alvarado APRN.[facility] [address] [address] Functional gastrointestinal disorder [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.9] / BRAIN FOG Functional Medicine Comment on above: Functional gastrointestinal disorder [K9 2.9] / BRAIN FOG Start: 05-27-2024 End: 08-26-2024 THYROGLOBULIN ANTIBODY THYROGLOBULIN ANTIBODY Lab Routine Alteration in metabolic function Brain fog Allergy, initial encounter Expected: 05/27/2024, Expires: 08/26/2024 [facility] Comment on above: Expected: 05/27/2024, Expires: Start: 05-27-2024 End: 08-26-2024 THYROID PEROXIDASE ANTIBODY THYROID PEROXIDASE ANTIBODY Lab Routine Alteration in metabolic function Brain fog Allergy, initial encounter Expected: 05/27/2024, Expires: 08/26/2024 [facility] Comment on above: Expected: 05/27/2024, Expires: Start: 05-27-2024 End: 08-26-2024 Thyrotropin [Units/volume] in Serum or Plasma THYROID STIMULATING HORMONE Lab Routine Alteration in metabolic function Brain fog Allergy, initial encounter Expected: 05/27/2024, Expires: 08/26/2024 [facility] Comment on above: Expected: 05/27/2024, Expires: Start: 05-27-2024 End: 08-26-2024 Thyroxine (T4) free [Mass/volume] in Serum or Plasma T4 FREE/FREE THYROXINE Lab Routine Alteration in metabolic function Brain fog Allergy, initial encounter Expected: 05/27/2024, Expires: 08/26/2024 [facility] Comment on above: Expected: 05/27/2024, Expires: Start: 05-27-2024 End: 08-26-2024 Triiodothyronine (T3) Free [Mass/volume] in Serum or Plasma T3, FREE Lab Routine Alteration in metabolic function Brain fog Allergy, initial encounter Expected: 05/27/2024, Expires: 08/26/2024 [facility] Comment on above: Expected: 05/27/2024, Expires: Start: 05-27-2024 End: 08-26-2024 VITAMIN B1 (THIAMINE), WHOLE BLOOD VITAMIN B1 (THIAMINE), WHOLE BLOOD Lab Routine Alteration in metabolic function Brain fog Allergy, initial encounter Expected: 05/27/2024, Expires: 08/26/2024 [facility] Comment on above: Expected: 05/27/2024, Expires: Start: 05-27-2024 End: 08-26-2024 Zinc [Mass/volume] in Serum or Plasma ZINC BLD Lab Routine Alteration in metabolic function Brain fog Allergy, initial encounter Expected: 05/27/2024, Expires: 08/26/2024 [facility] Comment on above: Expected: 05/27/2024, Expires: Start: 05-16-2024 DIABETES SCREEN DIABETES SCREEN [facility] Start: 04-27-2024 End: 04-27-2024 ambulatory Hematology/Oncology Comment on above: Q3MO PHLEBO/LAB 04/26* pt request lab day prior to tx NEEDS TO SCHEDULE FO R JULY/Q3MO PHLEBO/LAB 04/26* pt request lab day prior to tx Start: 04-26-2024 End: 04-26-2024 ambulatory [place] [facility] Laboratory Comment on above: (SO)CBC/CMP/IRON STUDIES* Start: 04-01-2024 End: 04-01-2024 Patient encounter procedure 04/01/2024 11:30 AM EST Office Visit [facility] [address] [id number] Oli Avery MD [address] [id number] 6 month f/u [facility] Comment on above: 6 month f/u Start: 03-10-2024 Advance Directive Discussion Advance Directive Discussion [facility] Start: 03-10-2024 Medicare Advantage Annual Wellness Visit Medicare [facility] Annual Wellness Visit [facility] Start: 02-03-2024 End: 02-03-2024 ambulatory 02/03/2024 8:30 AM EST [facility] Center Hematology/Oncology [address] [place] [address] Q3MO PHLEBO/LAB 02/01* pt request lab day prior to tx Hematology/Oncology Comment on above: Q3MO PHLEBO/LAB 02/01* pt request lab da y prior to tx Start: 02-02-2024 End: 05-03-2024 Ferritin [Mass/volume] in Serum or Plasma [facility] Work Phone: Comment on above: Expected: 02/02/2024, Expires: Start: 02-02-2024 End: 05-03-2024 Iron and Iron binding capacity panel - Serum or Plasma [facility] Comment on above: Expected: 02/02/2024, Expires: Start: 02-02-2024 End: 02-02-2024 ambulatory [place] [facility] Laboratory Comment on above: (SO)CBC/CMP/IRON STUDIES* Start: 01-16-2024 End: 01-16-2024 Patient encounter procedure 01/16/2024 8:30 AM EST Appointment Mammogram [address] [place] [address] Encounter for screening breast examination [Z12.39] Mammogram Comment on above: Encounter for screening breast examinati on [Z12.39] Start: 01-06-2024 End: 01-06-2024 ambulatory 01/06/2024 8:30 AM EDT [facility] Hematology/Oncology [address] [place] [address] Q3MO PHLEBO/LAB 11/06,OV EARLY/* pt request lab day prior to tx Hematology/Oncology Comment on above: Q3MO PHLEBO/LAB 11/06,OV EARLY/* pt reque st lab day prior to tx Start: 01-05-2024 End: 01-05-2024 ambulatory 01/05/2024 8:30 AM EDT Results Only [place] [facility] Laboratory [address] [place] [address] (SO)CBC/CMP/IRON STUDIES* [facility] Laboratory Comment on above: (SO)CBC/CMP/IRON STUDIES* Start: 11-11-2023 End: 11-11-2023 ambulatory Hematology/Oncology Comment on above: 6 MO OV/LAB 11/06/?PHLEBO TODAY* Q3MO PHLEBO/LAB 11/06 ,OV EARLY/* pt request lab day prior to tx Start: 11-09-2023 Covid-19 Vaccine ( season) Covid-19 Vaccine ( season) [facility] Start: 11-09-2023 Covid-19 Vaccine ( season) Covid-19 Vaccine ( season) [facility] Start: 11-09-2023 Influenza vaccination [facility] Start: 11-07-2023 End: 11-07-2023 ambulatory 11/07/2023 8:00 AM EDT Results Only [place] [facility] Laboratory [address] [place] [address] (SO)CBC/CMP/IRON STUDIES* [place] [facility] Laboratory Comment on above: (SO)CBC/CMP/IRON STUDIES* Start: 09-26-2023 End: 09-26-2023 ambulatory 09/26/2023 8:45 AM EDT Results Only [place] [facility] Draw Station [address] [facility] [place] [address] lab [facility] Draw Station Comment on above: lab Start: 09-25-2023 End: 12-25-2023 Hemoglobin A1c in Blood HEMOGLOBIN A1C Lab Routine History of CVA (cerebrovascular accident) Expected: 09/25/2023, Expires: 12/25/2023 [facility] Comment on above: Expected: 09/25/2023, Expires: Start: 09-25-2023 End: 12-25-2023 LIPID PANEL, NONFASTING LIPID PANEL, NONFASTING Lab Routine Hypercholesterolemia Expected: 09/25/2023, Expires: 12/25/2023 [facility] Work Phone: Comment on above: Expected: 09/25/2023, Expires: Start: 09-02-2023 End: 09-02-2023 Patient encounter procedure 09/02/2023 1:30 PM EDT Appointment Radiology [address] [place] [address] MRI BRAIN WO IVCON Radiology Comment on above: MRI BRAIN WO IVCON Start: 08-19-2023 End: 08-19-2023 ambulatory 08/19/2023 9:00 AM EDT Infusion Center Hematology/Oncology [address] [facility] [place] [address] Q3MO PHLEBO/LAB 07/31* pt request lab day prior to tx - Hematology/Oncology Comment on above: Q3MO PHLEBO/LAB 07/31* pt request lab day prior to tx - Start: 08-18-2023 End: 08-18-2023 ambulatory [facility] Laboratory Comment on above: (SO)CBC/IRON STUDIES* Start: 08-15-2023 End: 11-14-2023 Cobalamin (Vitamin B12) [Mass/volume] in Serum or Plasma VITAMIN B12 Lab Routine Impaired memory Forgetfulness Expected: 08/15/2023, Expires: 11/14/2023 [facility] Work Phone: Comment on above: Expected: 08/15/2023, Expires: Start: 08-15-2023 End: 11-14-2023 Folate [Mass/volume] in Serum or Plasma FOLATE, SERUM Lab Routine Impaired memory Forgetfulness Expected: 08/15/2023, Expires: 11/14/2023 [facility] Comment on above: Expected: 08/15/2023, Expires: Start: 08-15-2023 End: 11-14-2023 Methylmalonate [Moles/volume] in Serum or Plasma METHYLMALONIC ACID Lab Routine Impaired memory Forgetfulness Expected: 08/15/2023, Expires: 11/14/2023 [facility] Comment on above: Expected: 08/15/2023, Expires: Start: 08-15-2023 End: 11-14-2023 Thyrotropin [Units/volume] in Serum or Plasma THYROID STIMULATING HORMONE Lab Routine Impaired memory Forgetfulness Expected: 08/15/2023, Expires: 11/14/2023 [facility] Comment on above: Expected: 08/15/2023, Expires: Start: 08-15-2023 End: 08-15-2023 Patient encounter procedure 08/15/2023 9:30 AM EDT Office Visit Neurology [address] [place] [address] Airam Martinez APRN.[employer] [address] [place] [address] Evaluation for memory Neurology Comment on above: Evaluation for memory Start: 03-10-2023 Advance Directive Discussion Advance Directive Discussion [facility] Start: 03-10-2023 Behavioral Health Screening Behavioral Health Screening [facility] Start: 03-10-2023 Depression Assessment Depression Assessment [facility] Start: 11-08-2022 Covid-19 Vaccine () Covid-19 Vaccine () [facility] Start: 11-08-2022 Influenza vaccination [facility] Start: 06-13-2022 End: 08-13-2022 Chronic hepatitis differentiation between hepatitis B and C virus panel - Serum or Plasma HEP REMOTE PANEL BL Lab Routine Hereditary hemochromatosis (HCC) Expected: 06/13/2022, Expires: 08/13/2022 [facility] Work Phone: Comment on above: Expected: 06/13/2022, Expires: 3 Start: 06-13-2022 End: 08-13-2022 Gamma glutamyl transferase [Enzymatic activity/volume] in Serum or Plasma GGT BLD Lab Routine Hereditary hemochromatosis (HCC) Expected: 06/13/2022, Expires: 08/13/2022 [facility] Work Phone: Comment on above: Expected: 06/13/2022, Expires: 3 Start: 06-13-2022 End: 08-13-2022 Lipid 1996 panel - Serum or Plasma LIPID PANEL BASIC Lab Routine Hereditary hemochromatosis (HCC) Expected: 06/13/2022, Expires: 08/13/2022 [facility] Work Phone: Comment on above: Expected: 06/13/2022, Expires: 3 Start: 05-22-2022 End: 07-22-2022 [id number] [Mass/volume] in Serum or Plasma ALPHA FETOPROTEIN BL Lab Routine Hereditary hemochromatosis (HCC) Expected: 05/22/2022, Expires: 07/22/2022 [facility] Work Phone: Comment on above: Expected: 05/22/2022, Expires: 3 Start: 05-22-2022 End: 07-22-2022 Comprehensive metabolic 2000 panel - Serum or Plasma COMP METABOLIC PANEL Lab STAT Hereditary hemochromatosis (HCC) Expected: 05/22/2022, Expires: 07/22/2022 [facility] Work Phone: Comment on above: Expected: 05/22/2022, Expires: 3 Start: 03-10-2022 ADVANCE DIRECTIVE DISCUSSION ADVANCE DIRECTIVE DISCUSSION [facility] Start: 03-10-2022 DEPRESSION ASSESSMENT DEPRESSION ASSESSMENT [facility] Start: 12-20-2021 [facility] Work Phone: Start: 11-08-2021 Influenza vaccination [facility] Start: 01-01-2022 ADVANCE DIRECTIVE DISCUSSION ADVANCE DIRECTIVE DISCUSSION [facility] Start: 03-10-2021 DEPRESSION ASSESSMENT DEPRESSION ASSESSMENT [facility] Start: 09-14-2020 ANNUAL PCP TEAM CHRONIC DISEASE VISIT ANNUAL PCP TEAM CHRONIC DISEASE VISIT [facility] Start: 2019 RSV Vaccine (1 - 1-dose 75+ series) RSV Vaccine (1 - 1-dose 75+ series) [facility] Start: 01-30-2019 Adult depression screening assessment DEPRESSION SCREENING [facility] Start: 2009 Pneumococcal Vaccine: 65+ (1 of 1 - PCV) Pneumococcal Vaccine: 65+ (1 of 1 - PCV) [facility] Start: 2004 RSV Vaccine (1 - 1-dose 60+ series) RSV Vaccine (1 - 1-dose 60+ series) [facility] Start: 1994 Pneumococcal Vaccine: 50+ (1 of 1 - PCV) Pneumococcal Vaccine: 50+ (1 of 1 - PCV) [facility] Start: 1994 SHINGRIX VACCINE (1 of 2) SHINGRIX VACCINE (1 of 2) [facility] Start: 1962 Annual PCP Team Chronic Disease Visit Annual PCP Team Chronic Disease Visit [facility] Start: 1962 Depression Screening Depression Screening [facility] Start: 1962 SPIROMETRY SPIROMETRY [facility] Start: 1950 Pneumococcal Vaccine: 65+ (1 - PCV) Pneumococcal Vaccine: 65+ (1 - PCV) [facility] Start: 1950 PNEUMOCOCCAL: 65+ (1 - PCV) PNEUMOCOCCAL: 65+ (1 - PCV) [facility] Start: 1949 COVID-19 VACCINE (#1) COVID-19 VACCINE (#1) [facility] Start: 1944 COVID-19 VACCINE (#1) COVID-19 VACCINE (#1) [facility] Bacteria identified in Urine by Culture URINE CULTURE Microbiology Routine Urinary frequency Ordered: 12/15/2022 [facility] Work Phone: Comment on above: Ordered: 12/15/2022 End: 08-12-2023 CBC W Auto Differential panel - Blood CBC + DIFF Lab STAT Hereditary hemochromatosis (HCC) 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 Every 3 months for 4 Occurrences starting 08/13/2022 until 08/12/2023, 1 completed [facility] Work Phone: Comment on above: Every 3 months for 4 Occurrences startin g 08/13/2022 until 08/12/2023, 1 completed COLOGUARD COLOGUARD Lab Ro utine Screening for colon cancer Ordered: 01/14/2023 [facility] Work Phone: Comment on above: Ordered: 01/14/2023 End: 12-10-2024 DBT Breast - bilateral screening GOOD SCREENING W MALOU Radiology Routine Encounter for screening breast examination 1 Occurrences starting 11/11/2023 until 12/10/2024 [facility] Work Phone: Comment on above: 1 Occurrences starting 11/11/2023 until 12/10/2024 DBT Breast - bilater al screening GOOD SCREENING W MALOU Radiology Routine Encounter for screening breast examination 01/16/2024 8:26 AM EST [facility] Work Phone: ENTERIC BACTERIAL PA JUANITO BY PCR ENTERIC BACTERIAL PANEL BY PCR Lab Routine Rectal bleeding Ordered: 12/21/2022 [facility] Work Phone: Comment on above: Ordered: 12/21/2022 End: 08-12-2023 Ferritin [Mass/volume] in Serum or Plasma FERRITIN BLD Lab Routine Hereditary hemochromatosis (HCC) 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 Every 3 months for 4 Occurrences starting 08/13/2022 until 08/12/2023 [facility] Work Phone: Comment on above: Every 3 months for 4 Occurrences startin g 08/13/2022 until 08/12/2023 Ferritin [Mass/volum e] in Serum or Plasma FERRITIN BLD Lab Routine Hereditary hemochromatosis (HCC) 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 08/13/2022 7:58 AM EDT [facility] Work Phone: HEMOCUE B/O HEMOCUE B/O Lab Routine Rectal bleeding Ordered: 12/21/2022 [facility] Work Phone: Comment on above: Ordered: 12/21/2022 End: 08-12-2023 Iron and Iron binding capacity panel - Serum or Plasma IRON + TIBC Lab Routine Hereditary hemochromatosis (HCC) 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 Every 3 months for 4 Occurrences starting 08/13/2022 until 08/12/2023 [facility] Work Phone: Comment on above: Every 3 months for 4 Occurrences startin g 08/13/2022 until 08/12/2023 Iron and Iron bindin g capacity panel - Serum or Plasma IRON + TIBC Lab Routine Hereditary hemochromatosis (HCC) 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 08/13/2022 7:58 AM EDT [facility] Work Phone: End: 11-24-2023 GOOD SCREENING GOOD SCREENING Radiology Routine Screening breast examination 1 Occurrences starting 10/25/2022 until 11/24/2023 [facility] Work Phone: Comment on above: 1 Occurrences starting 10/25/2022 until 11/24/2023 End: 09-13-2024 MR Brain WO contrast MRI BRAIN WO IVCON Radiology Routine Impaired memory Forgetfulness 1 Occurrences starting 08/15/2023 until 09/13/2024 [facility] Comment on above: 1 Occurrences starting 08/15/2023 until 09/13/2024 End: 09-13-2024 MR Unspecified body region 3D post processing MRI 3D POST PROCESSING Radiology Routine Impaired memory Forgetfulness 1 Occurrences starting 08/15/2023 until 09/13/2024 [facility] Comment on above: 1 Occurrences starting 08/15/2023 until 09/13/2024 Ova and parasites identified in Unspecified specimen by Light microscopy OVA + PARA MICROSCOPIC Microbiology Routine Rectal bleeding Ordered: 12/21/2022 [facility] Work Phone: Comment on above: Ordered: 12/21/2022 Patient Education [facility] Work Phone: Patient referral [facility] Work Phone: Procedure [facility] Work Phone: End: 06-21-2023 Us abdominal real time w/image limited US ABD RT UPPER QUADRANT Radiology Routine Hereditary hemochromatosis (HCC) 1 Occurrences starting 05/22/2022 until 06/21/2023 [facility] Work Phone: Comment on above: 1 Occurrences starting 05/22/2022 until 06/21/2023 [facility] Immunizations Immunization Date Immunization Notes Care Provider Fa cility 10-16-2018 tetanus toxoid, redu laverne diphtheria toxoid, and acellular pertussis vaccine, adsorbed Dr. Katarina Mednia Work Phone: [facility] 01-30-2018 influenza virus vaccine, unspecified formulation Pauline Muse APRN.[facility] Work Phone: [facility] Payers Date Payer Category Payer Self-pay [id number] 2024 Private Health Insurance 3eb [id number] 2023 Self-pay [id number] 2021 Medicare AETNA MEDICARE A ETNA MEDICARE PPO [id number] 2021-Present [phone] [address] [place] [address] PPO [id number] 2021 Medicare [employer] MEDICARE A ETNA MEDICARE PPO [id number] 2021-Present [phone] [address] [place] [address] PPO [id number] 2021 Medicare (Managed Care) AEPANKAJ PATEL [id number] 2021 Private Health Insurance [facility] [id number] 1945 Unknown [id number]. 627 Unknown [id number] [id number]. 462 Unknown [id number] [id number]. 462 Unknown [id number] 2.16.840.1.895180.3.579.2. 462 Unknown [id number] 2.16.840.1.262041.3.579.2. 462 Unknown [id number] 2.16.840.1.985050.3.579.2. 462 Unknown [id number] 2.16.840.1.439100.3.579.2. 462 Unknown [id number] 2.16.840.1.496431.3.579.2. 462 Unknown [id number] 2.16.840.1.861492.3.579.2. 462 Unknown [id number] 2.16.840.1.772077.3.579.2. 462 Unknown [id number] 2.16.840.1.170700.3.579.2. 462 Unknown [id number] 2.840.1.977504.3.579.2. 462 Unknown [id number] 2.840.1.113595.3.579.2. 462 Unknown [id number] 2.840.1.273719.3.579.2. 462 Unknown [id number]. 462 Social History Date Type Detail Facility Start: 05-28-2021 End: 05-28-2023 Tobacco smoking status DCIS Unknown if ever smoked [facility] Start: 03-12-[address] [facility] Start: 03-12-2016 Spouse/ Significant Other [facility] Start: 03-09-2018 Non-smoker [facility] Start: 1945 Sex Assigned At Female [facility] Start: 01-08-2022 End: 12-01-2024 Tobacco smoking status NHIS Never smoked tobacco [facility] Start: 05-16-2021 End: 10-12-2024 Alcohol intake Current non-drinker of alcohol (finding) [facility] Start: 07-05-2019 History SDOH Alcohol Frequency 1 [facility] Start: 07-05-2019 History SDOH Alcohol Std Drinks 98 [facility] Start: 07-05-2019 History SDOH Social Connections Living 3 [facility] Start: 07-05-2019 History SDOH Physical Activity MPS 4 [facility] Start: 07-05-2019 History SDOH Financial 5 [facility] Start: 07-05-2019 History SDOH Transport Med 2 [facility] Start: 07-04-2019 Education 18 [facility] Start: 1945 Sex Assigned At Not on file [facility] Start: 01-08-2022 Tobacco use and exposure Smokeless tobacco non-user [facility] Start: 12-29-2021 End: 01-08-2022 Exposure to SARS-CoV-2 (event) Not sure [facility] Start: 07-04-2019 End: 08-14-2022 History of Social function [facility] Start: 07-04-2019 End: 08-14-2022 Social connection and isolation panel [facility] In a typical week, h ow many times do you talk on the telephone with family, friends, or neighbors? Patient refused [facility] Do you belong to any clubs or organizations such as yarsani groups, unions, fraternal or athletic groups, or school groups? Yes [facility] Are you now , , , , never or living with a partner? [facility] How often to you hav e a drink containing alcohol? Never [facility] Do you feel stress - tense, restless, nervous, or anxious, or unable to sleep at night because your mind is troubled all the time - these days [OSQ] Not at all [facility] (I/We) worried wheth er (my/our) food would run out before (I/we) got money to buy more. Never true [facility] Tobacco smoking status [facility] Start: 03-26-2024 Sex Female (finding) [facility] Medical Equipment Procedure Code Equipment Code [...] up, Visitor at bedside, Safety level maintained [facility] 01-06-2017 Are you deaf, or do you have serious difficulty hearing No 01/06/2017 8:40 AM Rosa Elena Martin, MARCIAL.VEGETABLE BUNCHER No [facility] Work Phone: 01-06-2017 Are you blind, or do you have serious difficulty seeing, even when wearing glasses No 01/06/2017 8:40 AM Rosa Elena Martin, MARCIAL.VEGETABLE BUNCHER No [facility] 01-06-2017 Do you have serious difficulty walking or climbing stairs No 01/06/2017 8:40 AM Rosa Elena Martin, MARCIAL.VEGETABLE BUNCHER No [facility] 01-06-2017 Do you have difficul ty dressing or bathing No 01/06/2017 8:40 AM EDT Rosa Elena Orta APRN.VEGETABLE BUNCHER No [facility] 01-06-2017 Because of a physica l, mental, or emotional condition, do you have difficulty doing errands alone such as visiting a physician's office or shopping No 01/06/2017 8:40 AM EDT Rosa Elena Orta APRN.VEGETABLE BUNCHER No [facility] Mental Status Date Assessment Result Facility 12-01-2024 Cognitive function Awake [facility] Work Phone: 09-12-2024 Cognitive function Level Of Cons ciousness Awake;Alert;Appropriate;Fol lows Commands [facility] Work Phone: 03-26-2024 Mental Status Oriented x 4 [facility] 10-31-2021 Cognitive function Voice/Name [facility] Work Phone: 01-06-2017 Because of a physica l, mental, or emotional condition, do you have serious difficulty concentrating, remembering, or making decisions No 01/06/2017 8:40 AM EDT Rosa Elena Orta APRN.VEGETABLE BUNCHER No [facility] Clinical Notes 08-03-2014 to 12-01-2024 Note Date & Type Note Facility 12-01-[address] [facility] 12-01-2024 Radiology Diagnostic study note [facility] Imaging Services [address] [place] [address] Chest 1 View (Portable) MR#: [id number] Acct: [id number] Name: EDER SEVERINO Rep #: [id number] : 1945 F 79 From: Max Mendes MD PCP: Dr. Katarina Medina MD Status: REG ER Study:Chest 1 View (Portable) Date of Exam: 12/01/24 Exam# [id number] Ordering Dr: Chico Enriquez MD PROCEDURE: CHEST 1 VIEW (PORTABLE) 12/01/2024 REASON FOR EXAM: CHEST PAIN TECHNIQUE: Frontal view of the chest. COMPARISON: 09/12/2024 FINDINGS: Lungs/Pleura: Clear. No pneumothorax or sizable pleural effusion. Heart/Mediastinum: Mildly enlarged. No vascular congestion. Bones/Soft tissues: Degenerative changes of the spine. Left chest wall surgicalclips. RAD/Chest 1 View (Portable) IMPRESSION: Mild cardiomegaly. No evidence of acute cardiopulmonary disease. Reading Location: [id number] CC: Dr. Chico Enriquez MD; Dr. Katarina Medina MD ~ Computer Repair Technician: Signed [facility] 12-01-2024 Discharge summary Note Date/Time December 01, 2024 7:40pm [facility] Medical Records Department [address] [facility] [place] [address] Emergency Department Summary 12/01/24 MR#: [id number] Acct: [id number] Name: EDER SEVERINO Rep #:[id number] : 1945 79 From: Chico Enriquez MD PCP: Dr. Katarina Medina MD Status:REG ER Location: ED HPI History of Present Illness Chief Complaint: Palpitations Narrative Narrative: 79-year-old female past medical history of glaucoma and macular degeneration states she has been on eyedrops from her title clerk automobile, Dr. Chan, for 3 to 4months. She presents to the emergency department today because of episodes thathappened on Friday, 2 days ago. She relates history that she was having chest pains, at least 4 episodes within 30 to 45 minutes. That resolved. Later that evening she experienced a regular heart rate and palpitations. She states she awoke with that the next morning, but has since resolved. She was reading that some of her eyedrops could cause cardiac events. She withheld her eyedrops and made an appointment with her title clerk automobile to see if there was a correlation. She states she wants to restart the medication but is afraid to do so. She presents to the emergency department wanting to make sure that the chest pain that she had 2 days ago was not a cardiac event that was significant. She states she was told by her friend that there was a blood test that could be performed to see if she had a heart attack on Friday. She denies other symptoms, no nausea or vomiting, no shortness of breath. [facility] Medical History Left knee pain History of thyroid nodule Secondary polycythemia Oral allergy syndrome Upper respiratory infection Suspected COVID-19 virus infection Neuropathy Hives Temporal arteritis Ductal carcinoma in situ (DCIS) of breast Gallstones Thyroid nodule History of pneumonia as a child GERD (gastroesophageal reflux disease) Vegan diet Arthritis Acute urticaria Osteopenia Macular degeneration Hemochromatosis Glaucoma Cataract Asthma Allergic rhinitis Acid reflux Home Medications ?Medication ?Instructions ?Recorded ?Last Taken ?Type L.acidophilus-L.plantarum-B.animalis-B.longum 1 ea PO DAILY 04/26/14 03/09/16 History 2 billion cell capsule diphenhydramine HCl 25 mg capsule 25 mg PO BID PRN PRN Allergies 07/18/14 Unknown History biotin 1 mg capsule 2,500 mcg PO QDAY 10/17/17 U nknown History Nattokinase 2,000 mg PO DAILY 12/05/20 U nknown History lutein 20 mg capsule 20 mg PO DAILY 06/10/22 Unkn own History magnesium amino acid chelate 100 100 mg PO DAILY 12/09 Unknown History mg tablet phlebotomies for hemachromatosis See Rx Instructions I M .COMPLEX 12/09/22 Unknown History albuterol sulfate 90 mcg/actuation 2 puff inhalation Q 4H PRN PRN 11/13/23 Unknown Rx aerosol inhaler Wheezing #8.5 grams quercetin 500 mg capsule mg PO 06/30/24 Unknown Histo ry Held on 09/12/24. Instructions: Conflicting Appointment tafluprost (PF) 0.0015 % eye drops 1 drp ophthalmic (e ye) QHS 06/30/24 Unknown History in a dropperette azithromycin 250 mg tablet 250 mg PO .COMPLEX #12 tabs 09/07/24 Unknown Rx cephalexin 500 mg capsule 500 mg PO TID #15 caps 10/18 Unknown Rx Allergy/AdvReac Type Severity Reaction Status Date / Time aspirin Allergy Mild unknown Verified 12/01/24 14:37 calcium carbonate (From Tums) Allergy Mild Other Verified 12/01/24 14:37 estradiol (From Vagifem) Allergy Mild unknown Verified 12/01/24 14:37 latanoprost (From Xalatan) Allergy Mild unknown Verified 12/01/24 14:37 miconazole (From Monistat 3) Allergy Mild burining, Verified 12/01/24 14:37 headache, nausea phenazopyridine Allergy Mild Other Verified 12/01/24 14:37 propoxyphene (From Darvon) Allergy Mild Other Verified 12/01/24 14:37 ranitidine (From Zantac) Allergy Mild unknown Verified 12/01/24 14:37 skin cleanser combination Allergy Mild burining, Verified 12/01/24 14:37 no.17 (From Monistat 3) headache, nausea tioconazole (From Monistat 1 Allergy Mild burning, Verified 12/01/24 14:37 (tioconazole)) headache, nausea amoxicillin Allergy Anaphylaxis Verified 12/01/24 14:37 ibuprofen (From Advil) Allergy Other Verified 12/01/24 14:37 indomethacin (From Indocin) Allergy Anaphylaxis Verified 12/01/24 14:37 indomethacin sodium (From Allergy Anaphylaxis Verified 12/01/24 14:37 Indocin) prednisolone Allergy Swelling Verified 12/01/24 14:37 Sulfa (Sulfonamide Allergy Anaphylaxis Verified 12/01/24 14:37 Antibiotics) barium sulfate AdvReac Rash Verified 12/01/24 14:37 nitrofurantoin AdvReac Other Verified 12/01/24 14:37 macrocrystalline (From Macrodantin) prednisone AdvReac Other Verified 12/01/24 14:37 progesterone AdvReac Other Verified 12/01/24 14:37 propoxyphene HCl (From AdvReac Other Verified 12/01/24 14:37 Darvon) Family History Sister Breast cancer Mother Diabetes Myocardial infarction, Onset Age: 69 Arthritis Liver disease Osteoporosis Father Myocardial infarction, Onset Age: 75 Brother Myocardial infarction, Onset Age: 44 Parkinsons Other Cancer Surgical History H/O laparoscopy History of lumpectomy of left breast History of cataract surgery History of cholecystectomy Social History Smoking Status: Never smoker alcohol intake: never substance use type: does not use what type of physical activity do you participate in: walking frequency: 3-4 times per week ROS ROS ED ROS Narrative Review of systems is positive for chest pain 2 days ago. 4 episodes within 30 to 45 minutes. Positive for regular heart rate/palpitations. No fevers or chills, no cough, no exacerbating or alleviating factors. Currently symptom-free. EXAM Physical Exam Narrative Exam Narrative: Afebrile. Vital signs noted. Nontoxic-appearing. Cardiovascular examination reveals regular rate and rhythm. Lungs are clear to auscultation bilaterally. Abdomen is soft and nontender without guarding or rebound. Positive bowel sounds. Neurological examination nonfocal, nonlateralizing. Seen ambulating independently to emergency department room. Const Vital Signs: 12/01/24 14:33 12/01/24 16:32 12/01/24 16:49 Temperature 97.8 F 97.8 F Temperature Source Oral Oral Pulse Rate 71 80 Respiratory Rate 16 13 Respiratory Effort Normal Non-Labored Blood Pressure 181/69 H 204/70 H Blood Pressure Mean 106 114 Pulse Ox 97 100 Oxygen Delivery Method Room Air Room Air 12/01/24 19:22 12/01/24 19:25 12/01/24 19:26 Temperature Temperature Source Pulse Rate 60 63 Respiratory Rate 18 Respiratory Effort Blood Pressure 171/57 H Blood Pressure Mean 83 Pulse Ox 98 Oxygen Delivery Method Room Air 12/01/24 19:30 Temperature Temperature Source Pulse Rate 59 L Respiratory Rate 12 Respiratory Effort Blood Pressure Blood Pressure Mean Pulse Ox 99 Oxygen Delivery Method MDM MDM MDM Narrative Medical decision making narrative: Differential diagnosis includes but not limited to ACS versus atrial fibrillation versus PACs versus PVCs. I had a lengthy discussion with the patient. She is concerned about the events of Friday and the chest pain that she had. Chest pain workup was pursued. EKG obtained and interpreted by myselfindependently as normal sinus rhythm at 68 bpm without ectopy or acute ST changes. No STEMI. There is a right bundle branch block. When compared to prior, it was present at that time as well. No significant change from previous. I reviewed her laboratory work and she has a normal white count of 6.3 with hemoglobin 14.8, hematocrit 43.8, platelet count 228. I reviewed her BMP which is grossly normal with a normal BUN and creatinine. Glucose 99. High-sensitivity troponin is 14. I feel this is greater than a 6-hour troponin and that she does not want a delta troponin performed. I find this reasonable. Chest x-ray in 1 view interpreted by myself shows cardiomegaly but no acute process, no pneumonia or pneumothorax. I reviewed the radiology report which confirms my independent interpretation. At this point in time, I do feel it is safe to follow-up with her primary care provider, and her title clerk automobile tomorrow. I feel she has been ruled out for ACS with a single troponin. Return instructions to the emergency department were reviewed. Disposition is discharged home in stable condition. History & Record Review Discussion w/independent historian: Patient Lab Data Attestation: I reviewed the patient's lab results. Labs: Laboratory Results - last 24 hr 12/01/24 17:20 WBC 6.3 RBC 5.20 Hgb 14.8 Hct 43.8 MCV 84.2 MCH 28.5 MCHC 33.8 RDW Std Deviation 38.8 RDW Coeff of Nicole 12.8 Plt Count 228 MPV 9.5 Immature Gran % (Auto) 0.300 Neut % (Auto) 60.3 Lymph % (Auto) 28.5 [place] % (Auto) 7.4 Eos % (Auto) 2.2 Baso % (Auto) 1.3 H Absolute Neuts (auto) 3.8 Absolute Lymphs (auto) 1.80 Nucleated RBC % 0 Sodium 138 Potassium 4.2 Chloride 103 Carbon Dioxide 24.9 Anion Gap 10 BUN 17 Creatinine 0.70 Estim Creat Clear Calc 55.02 Est GFR (MDRD) Non-Af 87 BUN/Creatinine Ratio 24.8 H Glucose 99 Calcium 10.1 Troponin T High Sens 14 Radiography Diagnostic Testing: Clinical Impression(s) from Imaging Studies Chest X-Ray 12/01/24 17:22 IMPRESSION: Mild cardiomegaly. No evidence of acute cardiopulmonary disease. Reading Location: [facility] Discharge Plan Triage Chief Complaint: Palpitations ED Provider: Chico Enriquez Dx/Rx/DC Orders Clinical Impression: Chest pain, Heart palpitations Instructions: ED Chest Pain, Uncertain Cause, ED Heart Palpitations Prescriptions: No Action biotin 1 mg capsule 2,500 mcg PO QDAY phlebotomies for hemachromatosis See Rx Instructions IM .COMPLEX Patient Comments: once every 3 months Rx Instructions: intramuscularly q 3 months; lutein 20 mg capsule 20 mg PO DAILY Rx Instructions: give with meal/snack albuterol sulfate 90 mcg/actuation HFA aerosol inhaler 2 puff INHALATION Q4H PRN PRN (Reason: Wheezing) Qty: 8.5 3RF tafluprost (PF) 0.0015 % dropperette 1 drp ophthalmic (eye) QHS quercetin 500 mg capsule PO cephalexin 500 mg capsule 500 mg PO TID Qty: 15 0RF L.acidoph,plant-B.animal,long 1 EACH capsule 1 ea PO DAILY Patient Comments: enzymes Nattokinase tablet 2,000 mg PO DAILY Patient Comments: blood thinner. Rx Instructions: 2000 FU diphenhydramine HCl 25 MG capsule 25 mg PO BID PRN PRN (Reason: Allergies) Patient Comments: allegry magnesium amino acid chelate 100 mg tablet 100 mg PO DAILY azithromycin 250 mg tablet 250 mg PO .COMPLEX Qty: 12 0RF Rx Instructions: 2 tablets (500 mg) on day 1, then 1 tablet daily on days 2 through 11 Primary Care Provider: Katarina Median Referrals: Katarina Medina MD [Primary Care Provider, Internal Medicine [facility]] - 3-5 Days Activity Restrictions/Additional Instructions: Follow-up with Dr. Chan. With ophthalmology tomorrow as scheduled. Return with increasing chest pain or continued heart palpitations, new or worsening symptoms. Print Language: Eritrean Disposition Disposition: Home, Self Care What to do if you have Problems For any increased pain, shortness of breath, bleeding, nausea or vomiting, chestpain, or any unexpected problems, contact your Primary Care Provider. Call [facility] ([phone]) or report to the closest Emergency Room. Call 911 if necessary. 12/01/241939 <Electronically signed by Chico Enriquez MD> Cosigner Signature (if applicable): CC: Dr. Katarina Medina MD ~ Signed [facility] Work Phone: 1(196) 883-870708-05-2025 History of Present illness Narrative* Luis Ron DO - 10/12/2024 8:30 AM EDT DIAGNOSIS: 1) Hemochromatosis- with compound [...] receptors were positive (greater than 95%, strong) NJ positive (greater than 95%, moderate and HER-2 [...] history. The note has been reviewed and editedand updated as necessary. I spent a total of 30 minutes on the date of the service which included preparing to see the patient, [id number] patient care, completing clinical documentation, obtaining and/or reviewing separately obtained history, performing a medically appropriate examination, counseling and educating the pat ient/family/caregiver, communicating with other HCPs (not separately reported), and communicating results to the patient/family/caregiver. Luis Ron DO documented in this encounter[facility]25 NoteHNO ID: [id number] Author: LUIS RON DO Service: ? Author [...] receptors were positive (greater than 95%, strong) NJ positive (greater than 95%, moderate and HER-2 [...] which included preparing to see the patient, [id number] patient care, completing clinical documentation, obtaining and/or reviewing separately obtained history, performing a medically appropriate examination, counseling and educating the patient/family/caregiver, communicating with other HCPs (not separately reported), and communicating results to the patient/family/caregiver. Luis Ron, [facility]07-09-2025 Evaluation note* Diagnosis Onset Date Resolution Status Admit Date Left knee pain acute September 15, 2024 9:31am Congested nose inactive September 15, 2024 9:31am [facility] Work Phone: 1(577) 730-272807-06-2025 Radiology Diagnostic study note [facility] Imaging Services [address], [place] [address] Chest PA and Lateral MR#: [id number] Acct: [id number] Name: EDER SEVERINO Rep #: [id number] : 1945 F 79 From: Man Deal MD PCP: Dr. Katarina Medina MD Status: REG ER Study:Chest PA and Lateral Date of Exam: 09/12/24 Exam# [id number] Ordering Dr: Nathanael Taylor DO PROCEDURE: CHEST [...] evidence of acute cardiopulmonary pathology. Reading Location: [id number] CC: Dr. Nathanael Bowers DO; Dr. Katarina Medina MD ~ Computer Repair Technician: Signed [facility] Work Phone: [phone]) 761-358406-23-2025 Miscellaneous Notes* Telephone Encounter - Angie Seth LPN - 08/30/2024 9:27 AM EDT Pt notified and voices understanding. Ferritin trend reviewed with pt. Angie Seth LPN * Telephone Encounter - Luis Ron DO - 08/27/2024 5:02 PM EDT I don't think hemochromatosis is causing brain fog. Her ferritin is at goal (< 50 ng/mL). if shehad polycythemia vera (she doesn't) then more frequent phlebotomy would make sense. Luis Ron DO * Telephone Encounter - Angie Seth LPN - 08/27/2024 9:11 AM EDT Pt walks in to office currently schedules phlebo every 3 months. She is experiencing an increase inher brain fog. She states she recently saw [...] Fletcher. Angie Seth LPN documented in this encounterSelect [facility] Telephone encounter Note * Telephone Encounter - Angie Seth LPN - 08/30/2024 9:27 AM EDT Pt notified and voices understanding. Ferritin trend reviewed with pt. Angie Seth LPN [facility]06-20-2025 Telephone encounter Note* Telephone Encounter - Luis Ron DO - 08/27/2024 5:02 PM EDT I don't think hemochromatosis is causing brain fog. Her ferritin is at goal (< 50 ng/mL). if shehad polycythemia vera (she doesn't) then more frequent phlebotomy would make sense. Luis Ron DO [facility]06-20-2025 Telephone encounter Note* Telephone Encounter - Angie Seth LPN - 08/27/2024 9:11 AM EDT Pt walks in to office currently schedules phlebo every 3 months. She is experiencing an increase inher brain fog. She states she recently saw Dr Fletcher who thought she should speak to you [...] ordered from Dr Fletcher. Angie Seth LPN [facility]04-23-2025 Evaluation note* Diagnosis Onset Date Resolution Status Admit Date Anxiety acute June 30 2:22pm Brain fog acute June 30 2:22pm Vitamin D deficiency acute Apri l 2024 2:22pm Asthma chronic June 30 2:22pm Hemochromatosis chronic June 2:22pm Hemochromatosis chronic July 16, 2024 8:04am [facility] Work Phone: 1(207) 640-530804-23-2025 Evaluation note* Diagnosis Onset Date Resolution Status Admit Date Anxiety acute June 30 2:22pm Brain fog acute June 30 2:22pm Vitamin D deficiency acute Apri l 2024 2:22pm Asthma chronic June 30 2:22pm Hemochromatosis chronic June 2:22pm Hemochromatosis chronic July 16, 2024 8:04am Hemochromatosis chronic July 30, 2024 8:26am [facility] Work Phone: 1(497) 762-596804-23-2025 Evaluation note* Diagnosis Onset Date Resolution Status [...] Congested nose inactive September 15, 2024 9:31am [facility] Work Phone: 1(113) 505-210204-09-2025 NoteDate of Procedure 06/16/2024. Environmental Health And Safety Manager Information Tank Welder: JONATHAN. Start time: 8:50 AM. Stop time: 8:53 AM. Quality Right Eye Good. Left Eye Good. Notes OD mod diffuse thinning, sup > inf OS approaching floor GCC OD artifact OD severe [id number] NoteHNO ID: [id number] Author: JACQUELINE GRIFFITHS MD Service: ? Author Type: Physician Type: Progress Notes Filed: 06/02/2024 15:10 Note Text: OUTSIDE RECORDS REVIEW: Tmax: 26, 25; Pachy: 555, 555 Lasers and Surgeries: OD: SLT x5 [id number] OS: SLT x5 [phone] Ocular Medication Intol and Non-efficacy: 20 allergies [...] AMD OD - getting Avastin Dry AMD [facility]03-26-2025 History of Present illness Narrative* Jacqueline Griffiths MD - 06/02/2024 3:09 PM EDT OUTSIDE RECORDS REVIEW: Tmax: 26, 25; Pachy: 555, 555 Lasers and Surgeries: OD: SLT x5 [phone] OS: SLT x5 Ocular Medication Intol and [...] Avastin Dry AMD OS documented in this encounterSelect [facility]03-26-2025 NoteHNO ID: [id number] Author: JACQUELINE GRIFFITHS MD Service: ? Author Type: Physician Type: Progress Notes Filed: 06/16/2024 09:53 Note Text: Tmax: , ; Pachy: 555, 555 Lasers and Surgeries: OD: [...] All medical record entries made by the dailyibe were at my direction and in my [...] All medical record entries made by the dailyibe were at my direction and in my [...] allof its relevant components. documented in this encounterSelect [facility]03-20-2025 Instructions* Patient Instructions* Airam Alvarado APRN.CUSTOMER ASSOCIATE - 05/27/2024 3:14 PM EDT Images from the original note were not included. Plan and Lifestyle Prescription PLAN with Patient Instructions: Based on your evaluation today, these are my recommendations: Modified Cardiometabolic Diet: avoid foods that are known to cause a serious allergy. Expand vegetable diversity for microbiome support slowly and gently. Follow up with the intensive care unit registered nurse (RD)for a customized food plan. Consider a 3-day food log/dietary recall assessment with your RD. Goals: Increase plant fiber intake with color variety (eat the rainbow) for gut health as tolerated. [facility] labs ordered Water intake: Aim for 8 [...] day or at bedtime (Youtube Dr. Santos 7-8). Take 1-2 deep breaths before eating meals Optionally, follow up with the [facility] therapist to help process the stress you [...] diet. Follow up with the health assistant cross country coach every 2 weeks to keep things in check Minimize supplements: recommend a well-sourced Vitamin D and quality probiotic. I like these brands: Blue vitamin D 5000 international unit(s) or plant-based: Truvani brand vitamin D or MindBodyGreen D3 Seed probiotic (seed.Scotrenewables Tidal Power) or Garden of Life 30 billion CFUs Notes: Consider buying organic when available and within budget: check o9 Solutions.HealthSmart Holdings for the Dirty Dozen/Clean 15 shopping guide. Well-sourced protein includes labels like: organic, grassfed, pasture-raised, & wild caught Whole Food Recipe Blogs Fabby Ambriz: https://FundedByMe/ Plant Based RD (Vegan and plant diverse): https://plantbasedrHandelabraGameslog.com/recipes/ Rachaels Good Eats: https://Digital Ally/ Cookcong and Sheila: https://Osisis Global Search/ Love and Celsa: https://www.Opeepl.Scotrenewables Tidal Power/recipes/ 101 Cookbooks: https://www.BabyagecoMy Digital Life.Scotrenewables Tidal Power/ Naturally Joanna:https://naturallyella.com/ The TaskEasy Dietitians: https://Parts Townians.Scotrenewables Tidal Power/ Follow up: Please schedule a follow up visit with the following Caregivers: Provider: 12weeks, Shipping Room Helper: 4 weeks, and Health Broomcorn Seeder: 2 weeks Container Finishing Inspector (RD): During the next 4-8 weeks you'll be working on your diet plan with our RD, allowing for gentle detoxification and decreasing inflammation - while we are gathering your lab results and combining thosewith your complete history to formulate a very personalized treatment plan. [phone]. Health Coaching: Recommend follow up every 2 weeks to develop a consistent routine. Please consider scheduling with our [facility] health coaches for a phone or virtual visit for accountability, goal setting and help with behavior ion exchange operator the next 6-8 weeks to be successful with your goals. [phone]. [facility]M Therapist: This is optional. Weekly or bi-monthly appointments can be helpful. [phone]. Due to the complexity of the testing performed, we are not able to review labs via MyChart or over the phone, but please know, if any of your labs are critical we will contact you. Otherwise, we willreview all your labs at your next visit. documented in this encounterSelect Medical [facility] NoteHNO ID: [id number] Author: AIRAM ALVARADO APRN.CNP Service: ? Author Type: Nurse Practitioner Type: Progress Notes Filed: 05/27/2024 15:14 Note Text: FUNCTIONAL MEDICINE INITIAL ASSESSMENT Patient: Eder Severino ALLERGIES Allergen Reactions Sulfa (Sulfonamide * Anaphylaxis Currituck Seed Rash Advil [Ibuprofen] Intolerance along with [...] mouth once daily. OTC PRODUCT [place]- r/t [facility] study MAGNESIUM ORAL Take 300 mg by [...] (HCC) Esophageal reflux Gastroesophageal reflux Gallbladder disease 2017 H/O polymyalgia rheumatica 02/12/2018 Mental disorder Migraine, [...] removal - single site surgery performed at [facility] by Dr. Castro - under thoracic epidural [...] visit today. Accompanied by . Lives in [place], [place] HPI: This is an 79yo female [...] History of Present illness Narrative* Airam Alvarado APRN.CUSTOMER ASSOCIATE - 05/27/2024 2:13 PM EDT Images from the original note were not included. FUNCTIONAL MEDICINE INITIAL ASSESSMENT Patient: Eder Severino ALLERGIES Allergen Reactions Sulfa (Sulfonamide * Anaphylaxis Currituck Seed Rash Advil [Ibuprofen] Intolerance along with [...] mouth once daily. OTC PRODUCT [place]- r/t [facility] study MAGNESIUM ORAL Take 300 mg by [...] (HCC) Esophageal reflux Gastroesophageal reflux Gallbladder disease 2017 H/O polymyalgia rheumatica 02/12/2018 Mental disorder Migraine, [...] removal - single site surgery performed at [facility] by Dr. Castro - under thoracic epidural [...] visit today. Accompanied by . Lives in [place], [place] HPI: This is an 79yo female [...] Carries epipen and inhaler Had f/u with shirt trimmer,mentions she's getting injections to build tolerance Has [...] slowly and gently. Follow up with the intensive care unit registered nurse (RD)for a customized food plan. Consider a 3-day food log/dietary recall assessment with your RD. Goals: Increase plant fiber intake with color variety (eat the rainbow) for gut health as tolerated. [facility] labs ordered Water intake: Aim for 8 glasses of filtered water a day. Avoid drinking from plastic water bottles when possible. Try 1-2 cups before breakfast/morning coffee. Use a non-plastic, reusable water container for daily hydration. Carry it with you during your day-to-day. To gauge hydration: Urine shouldnever be colorless clear. Aim for a pale straw yellow color. Stress regulation: Try the --8 breath twice a day or at bedtime (Youtluiza Santos 4-7-8). Take 1-2 deep breaths before eating meals Optionally, follow up with the CFM therapist to help process the stress you [...] diet. Follow up with the health assistant cross country coach every 2 weeks to keep things in check Minimize supplements: recommend a well-sourced Vitamin D and quality probiotic. I like these brands: Blue vitamin D 5000 international unit(s) or plant-based: Truvani brand vitamin D or MindBodyGreen D3 Seed probiotic (seed.Scotrenewables Tidal Power) or Garden of Life 30 billion CFUs Notes: Consider buying organic when available and within budget: check Gendel for the Dirty Dozen/Clean 15 shopping guide. Well-sourced protein includes labels like: organic, grassfed, pasture-raised, & wild caught Whole Food Recipe Blogs Fabby Ambriz: https://M-KOPA.Scotrenewables Tidal Power/ Plant Based RD (Vegan and plant diverse): https://plantbaseByteShield.Scotrenewables Tidal Power/recipes/ SaleMovehaels Good Eats: https://Digital Ally/ Cookie and Sheila: https://Aramsco.Scotrenewables Tidal Power/ Love and Celsa: https://www.License AcquisitionsandZulas.Scotrenewables Tidal Power/recipes/ 101 Cookbooks: https://www.101cookbooks.Scotrenewables Tidal Power/ Naturally Joanna:https://naturallyella.com/ The Real Food Dietitians: https://therealfooddietitians.com/ Follow up: Please schedule a follow up visit with the following Caregivers: Provider: 12weeks, Shipping Room Helper: 4 weeks, and Health Broomcorn Seeder: 2 weeks Container Finishing Inspector (RD): During the next 4-8 weeks you'll be working on your diet plan with our RD, allowing for gentle detoxification and decreasing inflammation - while we are gathering your lab results and combining thosewith your complete history to formulate a very personalized treatment plan. [phone]. Health Coaching: Recommend follow up every 2 weeks to develop a consistent routine. Please consider scheduling with our [facility] health coaches for a phone or virtual visit for accountability, goal setting and help with behavior ion exchange operator the next 6-8 weeks to be successful with your goals. [phone]. CFM Therapist: This is optional. Weekly or bi-monthly appointments can be helpful. [phone]. Due to the complexity of the testing performed, we are not able to review labs via MyChart or over the phone, but please know, if any of your labs are critical we will contact you. Otherwise, we willreview all your labs at your next visit. Time spent with patient: I spent a total of 60 minutes on the date of the service which included preparing to see the patient, lauw-aa-pplv patient care, completing clinical documentation, obtaining and/or reviewing separately obtained history, performing a medically appropriate examination, counseling and educating the pat ient/family/caregiver, and ordering medications, tests, or procedures. Airam Alvarado APRN.CNP 05/27/2024 3:06 PM documented in this encounterSelect Medical Cleveland [facility]02-10-2025 History of Present illness Narrative* Oli Avery MD - 04/19/2024 4:30 PM EST [facility] Established Visit Consultation is requested by: No referring provider defined for this encounter. PCP: Katarina Medina [address] [place] [id number] CEREBROVASCULAR HISTORY History of Event: I am [...] We will be getting your records from [facility] and we will let you know if [...] removal - single site surgery performed at [facility] by Dr. Castro - under thoracic epidural [...] mouth once daily. OTC PRODUCT [place]- r/t [facility] study MAGNESIUM ORAL Take 100 mg by [...] ALLERGIES Allergen Reactions Sulfa (Sulfonamide * Anaphylaxis Currituck Seed Rash Advil [Ibuprofen] Intolerance along with [...] which included preparing to see the patient, dlul-pj-hwbb patient care, obtaining and/or reviewing separately obtained history, performing a medically appropriate examination, and counseling and educating the patient/family/caregiver SIGNATURE Oli Avery MD April 20, 2024 10:32 AM CC No referring provider defined for this encounter. Katarina Medina [address] [address] documented in this encounterSelect Medical [facility]02-10-2025 NoteHNO ID: [id number] Author: OLI AVERY MD Service: ? Author Type: Physician Type: Progress Notes Filed: 04/20/2024 10:32 Note Text: [facility] Established Visit Consultation is requested by: No referring provider defined for this encounter. PCP: Katarina Medina [address] [facility] [address] [place] [address] CEREBROVASCULAR HISTORY History of Event: I am [...] We will be getting your records from [facility] and we will let you know if [...] removal - single site surgery performed at [facility] by Dr. Castro - under thoracic epidural [...] products Chemicals or dyes in clothing, linen, business support specialist, hair dyes, soaps, iodine Many viruses and [...] damage the skin. Oral diphenhydramine is an iyjf-neb-eonskxd antihistamine sold at pharmacy and grocery stores. [...] hours, or as directed by your provider [phone] The Next Generation [employer]. [address] [place] [address]. All rights reserved. This information is not intended as a substitute for professional medical care. Always follow yourhealthcare professional's instructions. Follow Up Care 03/26/2024 12:20:35 With:JOSHUA ARMAS MD Address: [address] [facility] [address] [place] [address]- [phone] When:2-4 days [facility] 01-17-2025 Note Discharge Instructions Thank you for allowing [facility] to assist you with your healthcare needs. [...] use your oral Benadryl. You can take axtx-nhs-jehsfmi allergy medications to help with your nasal congestion. If you develop swelling of your throat, shortness of breath, labored breathing, respiratory distress, associated nausea and vomiting, please return to the emergency department for reevaluation. No qualifying data available. Post Acute Orders No qualifying data available. You Need to Schedule the Following Appointments Follow Up with JOSHUA ARMAS MD When:Within 2-4 days Where:[address] [facility] [address] [place] [phone] Allergies No Known Medication Allergies Medications Please [...] products Chemicals or dyes in clothing, linen, business support specialist, hair dyes, soaps, iodine Many viruses and [...] damage the skin. Oral diphenhydramine is an xsze-gdf-lczliry antihistamine sold at pharmacy and grocery stores. [...] hours, or as directed by your provider [phone] The Next Generation [employer]. [address] [place] [address], [place] [address]. All rights reserved. This information is not intended as a substitute for professional medical care. Always follow yourhealthcare professional's instructions. Additional Information VACCINATE! IT SAVES LIVES! Members of the community who have not yet received the COVID-19 vaccine and would like to receive it can visit one of [facility] vaccine clinics. There are many vaccine clinic locations within the [facility]. For locations and available times, please visit www.gettheshot.coronavirus.[place].gov/. It is important to note that some COVID mobile vaccine clinics are held outdoors and may be canceled in rainy or stormy conditions. To learn more about pediatric vaccinations (ages 5-11), we invite you to visit the [facility] webpage. https://www.[facility].org/pages/9880-Wollp-Wbdfylwbjax-Sroqdvdjvg-Rbqei-Skt stions.htmlTo learn more about the COVID-19 vaccine, we invite you to visit the CDC website for a list of frequently asked questions. https://www.cdc.gov/coronavirus/2019-ncov/vaccines/faq.html [facility] Patient Portal Access Instructions: Stay connected with your healthcare team and access your personal medical information anytime with the [employer] Patient Portal. If you would like a full copy of your medical records please contact the [facility] Medical Records Department Friday through Friday between 8a.m. and 4:30p.m. Please follow the directions below to access the portal: 1.Access the email account you provided upon registration to the [facility].2.Look for an invitation email from [facility].3.Open the email and access the invitation link: Accept Invitation to [facility]4.Fill in the required woodward to create your account. Sign into www.VMware with your username and password that you [...] you will allow to register on the [employer] Patient Portal for access to your information. You can also access the [employer] Patient Portal on the [employer] rao. Simply click on Health Records under LearneratorData and then click on the Attraction World logo. HOW TO SAFELY DISPOSE OF PRESCRIPTION [...] Call your local pharmacy or go to http://bit.Fanchimp/8G5Bw5i to find one close to you.3.Make use of household items: Use cat litter or old coffee grounds to dispose medications if other options arenot available. Mix your drugs with these household products, seal them in an airtight container andthrow it into the garbage. Call [facility]: [phone] to be sure your drugs can be [...] am aware that I should contactmy doctor. Patient/Aviation Safety Equipment Technician Signature: Date/Time: Relationship to Patient: Witness Name/Signature: Date/Time: [facility]11-08-2024 History of Present illness Narrative * Catrachito [...] PATIENT PRESENTS WITH AN IMPLANTABLE OR ATTACHED OIL WELL LOGGING ENGINEER: No RADIOLOGY DEPARTMENT: Mammography PERIPHERAL IV DATA: Not applicable SIGNED BY: Harriet Catherine January 16, 2024 9:39 AM documented in this encounterSelect Medical [facility]11-08-2024 NoteHNO ID: [id number] Author: CATRACHITO SU Mammo Tech Service: ? Author Type: Environmental Health And Safety Manager Type: Progress Notes Filed: 01/16/2024 09:39 Note [...] PATIENT PRESENTS WITH AN IMPLANTABLE OR ATTACHED OIL WELL LOGGING ENGINEER: No RADIOLOGY DEPARTMENT: Mammography PERIPHERAL IV DATA: Not applicable SIGNED BY: Harriet Catherine January 16, 2024 9:39 [facility]09-03-2024 History of Present illness Narrative* Luis Ron DO - 11/11/2023 9:27 AM EDT DIAGNOSIS: 1) [...] receptors were positive (greater than 95%, strong) [place] positive (greater than 95%, moderate and HER-2 [...] Abs Lymph 1.00 - 4.00 k/uL 1.25 Audrain% % 7.7 Abs Audrain <0.87 k/uL 0.39 Eosin% % 2.6 Abs [...] which included preparing to see the patient, vahy-hh-hdlx patient care, completing clinical documentation, obtaining and/or reviewing separately obtained history, performing a medically appropriate examination, counseling and educating the pat ient/family/caregiver, communicating with other HCPs (not separately reported), and communicating results to the patient/family/caregiver. Luis Ron DO documented in this encounterSelect Medical [facility]07-24-2024 Telephone encounter Note * Telephone Encounter - [...] Moreno RN October 01, 2023 11:31 AM [facility]07-24-2024 Miscellaneous Notes* Telephone Encounter - Alvina Moreno [...] as well. Please advise documented in this encounterSelect Medical Cleveland [facility]07-24-2024 Telephone encounter Note * Telephone Encounter - Lula Liu - 10/01/2023 11:23 AM EDT Pt is requesting for Stella to place her yearly mammogram and asking if she needs to schedule a follow up as well. Please advise [facility]07-22-2024 Telephone encounter Note* Telephone Encounter - Mariam Ozuna - 09/29/2023 3:49 PM EDT Received fax from [facility]07-22-2024 Miscellaneous Notes* Telephone Encounter - Mariam Ozuna - 09/29/2023 3:49 PM EDT Received fax from [facility] * Telephone Encounter - Светлана Ravi RN - 09/29/2023 12:41 PM EDT Call to [facility] , transferred to cardiac lab, will push images andfax reports for most recent EChO and CUS. Светлана Ravi RN September 29, 2023 12:45 PM documented in this encounterSelect Medical [facility]07-22-2024 Telephone encounter Note * Telephone Encounter - Светлана Ravi RN - 09/29/2023 12:41 PM EDT Call to [facility] , transferred to cardiac lab, will push images andfax reports for most recent EChO and CUS. Светлана Ravi RN September 29, 2023 12:45 PM [facility]07-18-2024 Instructions* Patient Instructions* Oli Avery MD - [...] We will be getting your records from [facility] and we will let you know if there is any more workup we recommend I do not recommend starting aspirin since you're already on a blood thinner Follow-up with us in 6 months (virtually) Please do not hesitate to call us or contact us through Ongaget with any questions. Oli Avery MD September 25, 2023 2:03 PM documented in this encounterSelect Medical [facility]07-18-2024 History of Present illness Narrative* Oli Avery MD - 09/25/2023 12:39 PM EDT [facility] Initial Visit Consultation is requested by: Airam Martinez [address] [facility] [address] PCP: Katarina Medina [address] [facility] [address] [place] [address] CEREBROVASCULAR HISTORY History of Event: Mrs. Severino [...] removal - single site surgery performed at [facility] by Dr. Castro - under thoracic epidural [...] mouth once daily. OTC PRODUCT [place]- r/t [facility] study MAGNESIUM ORAL Take 100 mg by [...] ALLERGIES Allergen Reactions Sulfa (Sulfonamide * Anaphylaxis Currituck Seed Rash Advil [Ibuprofen] Intolerance along with [...] Stroke of Undetermined etiology: Incomplete Evaluation Modified [place] Score: Score: 0 NIH Stroke Scale: LOC: [...] We will be getting your records from [facility] and we will let you know if [...] patients with diabetes, achieving a goal of LxY1g=9% is recommended to reduce risk for microvascular [...] DASH-style diet rich in fruits and vegetables (https://www.nhlbi.nih.gov/education/axxl-bdutkg-zryx) - Consider Mediterranean diet supplemented with nuts [...] of an exercise program by a health laboratory animal caretaker such as a physical therapist or cardiac [...] which included preparing to see the patient, cytt-eb-xhbq patient care, obtaining and/or reviewing separately obtained history, performing a medically appropriate examination, and counseling and educating the patient/family/caregiver SIGNATURE Oli Avery MD September 25, 2023 12:45 PM CC Airam Martinez [address] [facility] [address] Katarina Medina [address] [address] documented in this encounterSelect Medical Cleveland [facility]06-25-2024 History of Present illness Narrative* Aida Izaguirre, RT(R) - 09/02/2023 1:30 PM EDT Radiology [...] PATIENT PRESENTS WITH AN IMPLANTABLE OR ATTACHED OIL WELL LOGGING ENGINEER: No RADIOLOGY DEPARTMENT: MR; Exam(s) Completed: Head: Routine Brain PERIPHERAL IV DATA: Not applicable SIGNED BY: RT Dante(R) September 02, 2023 2:25 PM documented in this encounterSelect Medical Cleveland Clinic [facility]06-07-2024 Instructions* Patient Instructions* Airam Martinez APRN.CUSTOMER ASSOCIATE - 08/15/2023 11:57 AM EDT Labs. MRI brain. You can call [phone] to schedule testing and any follow up to discuss. Consider neuropsychological testing. Consider sleep study in the future. Our Team: The nursing staff, and medical assistants are a major part of YOUR TREATMENT TEAM and will be handling your phone calls, Exoprise Messages and inquiries, if any. Unless explicitly told otherwise at the time of your office visit, your study results and ensuing treatment plans will be released via Exoprise and discussed during your follow-up appointment. MyChart: Please ask the schedulers to give you an activation code. The main way of communication isby Ongaget rather than phone lines, so if you have not signed up, please do so. Exoprise is also theway that you can review your labs and testing. We are not able to contact everyone to tell them results are normal. If you do not hear back from us regarding testing you have had, it should be considered normal or within normal range. If you have any questions about the results, you are free to message us. Ongaget is meant for simple questions regarding medications, possible side effects, or other simplestraight forward questions in limited sentences, rather than multiple paragraphs of discussion. Ongaget is not meant for, or efficient for [...] do not comment on most testing on mychart in a message or commentary unless there [...] you with this process. documented in this encounterSelect Medical [facility]06-07-2024 History of Present illness Narrative* Airam Martinez APRN.CNP - 08/15/2023 9:30 AM EDT Images from the original note were not included. [facility] Name: Eder Severino Age: [age] year old Gender: female Primary Care Provider: Katarina Medina MD Self-referred for evaluation for memory. Chief Complaint:New Patient 08/15/2023 - General Neurology, Airam Martinez APRN.CUSTOMER ASSOCIATE ASSESSMENT Eder Severino is a 78 year [...] by her . Visit completed during unplanned [facility] downtime. This is a 78 year old [...] and patient's visit was completed during unplanned Epic downtime). Can feel like her lips were [...] mouth once daily. OTC PRODUCT [place]- r/t [facility] study MAGNESIUM ORAL Take 100 mg by mouth once daily. Biotin 2,500 mcg cap Take 2,500 mg by mouth once daily. Cholecalciferol, Vitamin D3, 5,000 unit cap Take 1 capsule by mouth once daily. OTC PRODUCT Take 100 mg by mouth twice daily. Nattokinase 100mg: Take one(1) tablet daily. ALLERGIES Allergen Reactions Sulfa (Sulfonamide * Anaphylaxis Currituck Seed Rash Advil [Ibuprofen] Intolerance along with [...] removal - single site surgery performed at [facility] by Dr. Castro - under thoracic epidural [...] procedures found. This note was dictated using Unity Technologies speech recognition software and may contain some [...] which included preparing to see the patient, teeu-nx-ufwz patient care, completing clinical documentation, obtaining and/or [...] of your PCP/referring physician. documented in this encounterSelect Medical Cleveland Clinic [facility] Telephone encounter Note * Telephone Encounter - [...] study. Pt. Voiced understanding. Shelly Miller LPN [facility]06[facility]03[facility] Miscellaneous Notes* Telephone Encounter - Shelly Miller [...] on. Thank you, Opal documented in this encounterSelect [facility] Telephone encounter Note * Telephone Encounter - Jordyn Brooks LPN - 08/11/2023 1:51 PM EDT Left message for patient to contact office. Jordyn Brooks LPN [facility]06[facility]24 Telephone encounter Note* Telephone Encounter - Luis Ron DO - 08/11/2023 1:31 PM EDT Secondary only because she only has very occasional increase in RBC count, hemoglobin and hematocrit. 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 Luis Sydnee DO Asaf Patient needs to follow up with her PCP if she feels she needs a sleep study. Jordyn Brooks LPN [facility] Telephone encounter Note* Telephone Encounter - Jordyn [...] at home INR monitor. Jordyn Brooks LPN [facility] Telephone encounter Note* Telephone Encounter - Shelly [...] the next few weeks. Shelly Miller LPN [facility]06[facility] Telephone encounter Note* Telephone Encounter - Opal [...] send her questions on. Thank you, Opal [facility]06[facility] History of Present illness Narrative* Pauline Muse APRN.JONATHAN - 08/09/2023 10:51 AM EDT Patient came in with medication questions. Patient says she takes a [id number] supplement that thins her blood. Patient says she also gets shots in the right eye to help control bleeding. Patient sees a specialist for this. Patient wants to know if she should increase or decrease her over-the- counter medication that thins her blood. At this time I did discuss with patient that we are unableto accommodate this request. Patient should page the on-call eye care professional and see what they wouldlike her to do because patient is saying she is seeing a pink hue in her visual field in the right eye. And that is why she is worried that the eye is still bleeding. And this is why she has questions about her blood thinning [id number]-[id number] medication. Patient will page the on- manufacture specialist [facility] and then her on-call PCP if that does not work she will go to the ER. Was okay with this care plan. documented in this encounter[facility] Miscellaneous Notes* Telephone Encounter - Kaylie Cronin - 05/08/2023 12:17 PM EST Patient informed * Telephone Encounter - Betty Coleman - 05/08/2023 10:15 AM EST Called Patient and left a vm to return our phone call. We Need to inform her that we had to move her to [place] at 9;[address]Masci Betty Coleman documented in this encounterSelect [facility] Clinic [facility] Miscellaneous Notes* Telephone Encounter - Tere Palafox LPN - 02/14/2023 9:33 AM EST Images from the original note were not included. Mi Douglas MD P [facility] General Surgery Pool Please let patient know her cologuard test was negative - Thanks Rich Called patient, no answer. Left voicemail (First and last name identifier) advising patient of Dr. Douglas's message above. Tere Palafox LPN documented in this encounterSelect [facility] History of Present illness Narrative* Mi Douglas MD - 01/15/2023 4:32 AM EST FOLLOW UP VISIT - POST OP LUMPECTOMY FOR DCIS NAME: Eder Perez [facility] NO.: [id number] DATE OF SERVICE: January 14, 2023 : [...] non-neoplastic tissue. Ancillary Studies from previous specimen ([id number] / [id number]): ER - >95%, strong NJ - >95%, moderate Her2 gunnar ([facility]) - [...] future. Mi Douglas MD documented in this encounterSelect [facility] Nurse Note* Josefa Goldsmith RN - 01/14/2023 [...] 2014 Josefa Goldsmith RN documented in this encounterSelect [facility] Clinic [facility] History of Present illness Narrative* Yonny Mott [...] 07, 2023 8:29 AM documented in this encounterSelect [facility] Clinic [facility] Miscellaneous Notes* Telephone Encounter - Claudia Armstrong LPN - 12/26/2022 9:23 AM EDT Patient given results and verbalized understanding of instructions given. Claudia Armstrong LPN * Telephone Encounter - Pauline Muse APRN.JONATHAN - 12/26/2022 7:32 AM EDT Stool was negative for bacteria. Still awaiting further results documented in this encounterSelect [facility] History of Present illness Narrative* Pauline Muse APRN.JONATHAN - 12/21/2022 11:59 AM EDT Subjective Came [...] history is provided by the patient. No restorative art embalmer was used. Diarrhea Review of Systems Constitutional: [...] removal - single site surgery performed at [facility] by Dr. Castro - under thoracic epidural and sedation. STRTC LOCLZJ GID BREAST BX/NEEDLE PLACEMENT Right 02/16/2018 Rt stereotactic vaccuum assisted core biopsy ALLERGIES Sulfa (Sulfonamide Antibiotics), [place] Seed, Advil [Ibuprofen], Amoxicillin, Aspirin,Barium Iodide, Darvon [...] one(1) tablet daily. OTC PRODUCT [place]- r/t [facility] study OTC PRODUCT 250 mg once daily. Quercetin [...] plan. Pauline Muse APRN.JONATHAN documented in this encounterSelect [facility] History of Present illness Narrative* Pauline Muse [...] hemochromatosis Esophageal reflux Gastroesophageal reflux Gallbladder disease 2017 H/O polymyalgia rheumatica 02/12/2018 Mental disorder Migraine, [...] removal - single site surgery performed at [facility] by Dr. Castro - under thoracic epidural and sedation. [facility] BX/NEEDLE PLACEMENT Right 02/16/2018 [...] mouth once daily. OTC PRODUCT [place]- r/t [facility] study MAGNESIUM ORAL Take 100 mg by [...] plan. Pauline Muse APRN.JONATHAN documented in this encounterSelect Medical [facility] Clinic [facility] History of Present illness Narrative* Eva Heard PA-C - 10/28/2022 3:12 PM EDT This note was created using MiMediariter. Subjective Eder Severino is a 77 year old female. HPI Presents with a chief complaint of scratchy throat over the past 2 days. She had a rash around her mouth for 3 to 4 weeks and had been seen by a homeopathic doctor in [facility]. She had mentioned this to her and the doctor had recommended she have an VERO and some other antibody testing ordered asthe patient was concerned she was allergic to sunflower seeds. She had eaten some sunflower seeds before this rash started. She does have a history of multiple other allergies and has seen an shirt trimmer and had immunotherapy previously. Last night she [...] mouth once daily. OTC PRODUCT [place]- r/t [facility] study MAGNESIUM ORAL Take 100 mg by [...] removal - single site surgery performed at [facility] by Dr. Castro - under thoracic epidural [...] understanding. Eva Heard PA-C documented in this encounterSelect Medical [facility] Clinic [facility] Instructions* Patient Instructions* Eva Heard PA-C - 10/28/2022 3:08 PM EDT Zyrtec 10 mg daily as needed Call your homeopathic physician to see if labs were ordered there. If not see PCP or shirt trimmer to follow up regarding antibody testing. documented in this encounterSelect [facility]23 Miscellaneous Notes* Telephone Encounter - Mi Douglas MD - 10/25/2022 7:09 AM EDT Mammogram order entered documented in this encounterSelect Medical [facility] Clinic [facility]23 Miscellaneous Notes* Telephone Encounter - Kelly Darby - 10/24/2022 1:39 PM EDT Patient is calling to schedule annual visit with you for a follow up. Please place order for mammography and return call to patient to arrange mammography appointment and appointment with Dr Douglas documented in this encounterSelect Medical [facility] Clinic [facility] History of Present illness Narrative* Izabel Sasm APRN.CUSTOMER ASSOCIATE - 07/15/2022 7:47 AM EDT Subjective The history is provided by the patient. No restorative art embalmer was used. HPI Eder Severino is a [...] have confirmed and edited as necessary, the [facility] Review of Systems Constitutional: Negative for chills, [...] indetail warranting prompt ER evaluation. Izabel Sams APRN.CNP documented in this encounterSelect Medical [facility] Clinic [facility]2023 Instructions* Patient Instructions* Izabel Sams APRN.CNP - [...] side effects of medication. documented in this encounterSelect Medical [facility] Clinic [facility]04[facility]2023 Miscellaneous Notes* Telephone Encounter - Kaylie Jc [...] filed. Luis Ron DO documented in this encounterSelect Medical [facility] Clinic [facility]03-[facility]2023 History of Present illness Narrative* Zo Ring [...] 03, 2022 8:08 AM documented in this encounterSelect Medical [facility] Clinic [facility]2023 History of Present illness Narrative* Luis Ron DO - 05/22/2022 8:48 AM EDT DIAGNOSIS: [...] receptors were positive (greater than 95%, strong) NJ positive (greater than 95%, moderate and HER-2 [...] No jaundice or rash. No petechiae. NEUROLOGIC: pressfitter II-XII are grossly intact. No focal motor [...] Lymph 1.00 - 4.00 k/uL 1.46 1.35 [place]% % 7.1 6.6 Abs [place] <0.87 k/uL 0.38 0.36 Eosin% % 0.9 [...] which included preparing to see the patient, [id number] patient care, completing clinical documentation, obtaining and/or reviewing separately obtained history, performing a medically appropriate examination, counseling and educating the pat ient/family/caregiver, ordering medications, tests, or procedures, and communicating results to thepatient/family/caregiver. Luis Ron DO documented in this encounterSelect Medical [facility] Clinic [facility]12-[facility]2022 Miscellaneous Notes* Telephone Encounter - Aby Underwood [...] to assist in scheduling. documented in this encounterSelect Medical [facility] Clinic [facility]12-[facility]-2022 Miscellaneous Notes* Telephone Encounter - Jordyn Brooks LPN - 02/08/2022 5:16 PM EST Leave as is. Jordyn Brooks LPN * Telephone Encounter - Ange Ovallse - 02/08/2022 4:48 PM EST Please advise [...] require adjustment. Thank you. 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 Ancillary Studies from previous specimen ([id number] / [id number]): ER - >95%, strong NJ - >95%, moderate Her2 gunnar ([facility]) - [...] visit. Mi Douglas MD documented in this encounterSelect Medical [facility] Clinic [facility]11-[facility]-2022 Nurse Note* Iva AngeWILLA - 01/08/2022 3:10 PM EDT REVIEW OF [...] 2014 Iva Cassidy LPN documented in this encounterSelect Medical [facility] Clinic [facility]10-28[facility]2022 Miscellaneous Notes* Letter - Mammography Coordinator - 01/04/2022 12:03 PM EDT January 04, 2022 PID: [id number] Eder Severino [address] [place] [address] Dear Ms. Severino, We are pleased to [...] report will be [facility] as part of your permanent medical record and are available for your continuing care. Thank you for allowing us to help in meeting your health care needs. Sincerely, Dr. Yan Interpreting Radiologist [facility] (Normal over 40) documented in this encounterSelect Medical Cleveland Clinic [facility]10-27[facility]2022 History of Present illness Narrative* Elissa Rogers RT(R) - 01/03/2022 9:10 AM EDT Radiology Service [...] 03, 2022 9:09 AM documented in this encounterSelect Medical [facility] Clinic [facility]08-24-2022 Miscellaneous Notes* Telephone Encounter - Aby Underwood - 10/31/2021 9:16 AM EDT Patient returned call and rescheduled. Aby Underwood * Telephone Encounter - Aby Underwood - 10/30/2021 3:51 PM EDT LM for patient to return call. When she calls, please reschedule 11/07 labs and phlebo to 11/09 or transfer to HEMONC PSS to reschedule. Once rescheduled, document and close this note. Aby Underwood documented in this encounterSelect Medical [facility] Clinic [facility]-11-2022 Miscellaneous Notes* Telephone Encounter - Aby Underwood - 07/18/2021 9:18 AM EDT Left message for patient to return call. When patient calls, please message and warm transfer to Hem/Onc PSS to reschedule 08/08 appointment to the following week. Aby Underwood documented in this encounterSelect Medical [facility] Clinic [facility] History of Past illness Narrative* Problem Noted Date Resolved Date Hemochromatosis 08/03/2014 07/17/2016 Disorder of iron metabolism, unspecified 012 07/17/2016 Overview: ICD-10 Go-Live Urgency of urination 05/09/2010 05/22/2011 Hematuria 02/27/2005 04/21/2005 documented as of this encounter (statuses as of 07/20/2021) [facility] History of Past illness Narrative* Problem Noted Date Resolved Date Hemochromatosis 08/03/2014 07/17/2016 Disorder of iron metabolism, unspecified 012 07/17/2016 Overview: ICD-10 Go-Live Urgency of urination 05/09/2010 05/22/2011 Hematuria 02/27/2005 04/21/2005 documented as of this encounter (statuses as of 08/15/2021) [facility] History of Past illness Narrative* Problem Noted Date Resolved Date Hemochromatosis 08/03/2014 07/17/2016 Disorder of iron metabolism, unspecified 012 07/17/2016 Overview: ICD-10 Go-Live Urgency of urination 05/09/2010 05/22/2011 Hematuria 02/27/2005 04/21/2005 documented as of this encounter (statuses as of 10/31/2021) [facility] History of Past illness Narrative* Problem Noted Date Resolved Date Hemochromatosis 08/03/2014 07/17/2016 Disorder of iron metabolism, unspecified 29/2 012 07/17/2016 Overview: ICD-10 Go-Live Urgency of urination 05/09/2010 05/22/2011 Hematuria 02/27/2005 04/21/2005 documented as of this encounter (statuses as of 11/21/2021) [facility] History of Past illness Narrative* Problem Noted Date Resolved Date Hemochromatosis 08/03/2014 07/17/2016 Disorder of iron metabolism, unspecified 29/2 012 07/17/2016 Overview: ICD-10 Go-Live Urgency of urination 05/09/2010 05/22/2011 Hematuria 02/27/2005 04/21/2005 documented as of this encounter (statuses as of 01/08/2022) [facility] History of Past illness Narrative* Problem Noted Date Resolved Date Hemochromatosis 08/03/2014 07/17/2016 Disorder of iron metabolism, unspecified 29/2 012 07/17/2016 Overview: ICD-10 Go-Live Urgency of urination 05/09/2010 05/22/2011 Hematuria 02/27/2005 04/21/2005 documented as of this encounter (statuses as of 01/09/2022) [facility] History of Past illness Narrative* Problem Noted Date Resolved Date Hemochromatosis 08/03/2014 07/17/2016 Disorder of iron metabolism, unspecified 29/2 012 07/17/2016 Overview: ICD-10 Go-Live Urgency of urination 05/09/2010 05/22/2011 Hematuria 02/27/2005 04/21/2005 documented as of this encounter (statuses as of 02/18/2022) [facility] History of Past illness Narrative* Problem Noted Date Resolved Date Hemochromatosis 08/03/2014 07/17/2016 Disorder of iron metabolism, unspecified 08/29/2 012 07/17/2016 Overview: ICD-10 Go-Live Urgency of urination 05/09/2010 05/22/2011 Hematuria 02/27/2005 04/21/2005 documented as of this encounter (statuses as of 02/25/2022) [facility] History of Past illness Narrative* Problem Noted Date Resolved Date Hemochromatosis 08/03/2014 07/17/2016 Disorder of iron metabolism, unspecified 0829/2 012 07/17/2016 Overview: ICD-10 Go-Live Urgency of urination 05/09/2010 05/22/2011 Hematuria 02/27/2005 04/21/2005 documented as of this encounter (statuses as of 05/22/2022) [facility] History of Past illness Narrative* Problem Noted Date Resolved Date Hemochromatosis 08/03/2014 07/17/2016 Disorder of iron metabolism, unspecified 08/29/2 012 07/17/2016 Overview: ICD-10 Go-Live Urgency of urination 05/09/2010 05/22/2011 Hematuria 02/27/2005 04/21/2005 documented as of this encounter (statuses as of 05/22/2022) [facility] History of Past illness Narrative* Problem Noted Date Resolved Date Hemochromatosis 08/03/2014 07/17/2016 Disorder of iron metabolism, unspecified 0829/2 012 07/17/2016 Overview: ICD-10 Go-Live Urgency of urination 05/09/2010 05/22/2011 Hematuria 02/27/2005 04/21/2005 documented as of this encounter (statuses as of 05/22/2022) [facility] History of Past illness Narrative* Problem Noted Date Resolved Date Hemochromatosis 08/03/2014 07/17/2016 Disorder of iron metabolism, unspecified 08/29/2 012 07/17/2016 Overview: ICD-10 Go-Live Urgency of urination 05/09/2010 05/22/2011 Hematuria 02/27/2005 04/21/2005 documented as of this encounter (statuses as of 06/13/2022) [facility] History of Past illness Narrative* Problem Noted Date Resolved Date Hemochromatosis 08/03/2014 07/17/2016 Disorder of iron metabolism, unspecified 012 07/17/2016 Overview: ICD-10 Go-Live Urgency of urination 05/09/2010 05/22/2011 Hematuria 02/27/2005 04/21/2005 documented as of this encounter (statuses as of 07/15/2022) [facility] History of Past illness Narrative* Problem Noted Date Resolved Date Hemochromatosis 08/03/2014 07/17/2016 Disorder of iron metabolism, unspecified 012 07/17/2016 Overview: ICD-10 Go-Live Urgency of urination 05/09/2010 05/22/2011 Hematuria 02/27/2005 04/21/2005 documented as of this encounter (statuses as of 08/13/2022) [facility] History of Past illness Narrative* Problem Noted Date Resolved Date Hemochromatosis 08/03/2014 07/17/2016 Disorder of iron metabolism, unspecified 012 07/17/2016 Overview: ICD-10 Go-Live Urgency of urination 05/09/2010 05/22/2011 Hematuria 02/27/2005 04/21/2005 documented as of this encounter (statuses as of 08/14/2022) [facility] History of Past illness Narrative* Problem Noted Date Diagnosed Date Resolved Date Hemochromatosis 08/03/2014 07/17/2016 Disorder of iron metabolism, unspecified 11/06/2011 07/17/2016 Overview: ICD-10 Go-Live Urgency of urination 05/09/2010 012 Hematuria 02/27/2005 04/21/2005 documented as of this encounter (statuses as of 10/25/2022) [facility] History of Past illness Narrative* Problem Noted Date Diagnosed Date Resolved Date Hemochromatosis 08/03/2014 07/17/2016 Disorder of iron metabolism, unspecified 11/06/2011 07/17/2016 Overview: ICD-10 Go-Live Urgency of urination 05/09/2010 012 Hematuria 02/27/2005 04/21/2005 documented as of this encounter (statuses as of 10/29/2022) [facility] History of Past illness Narrative* Problem Noted Date Diagnosed Date Resolved Date Hemochromatosis 08/03/2014 07/17/2016 Disorder of iron metabolism, unspecified 11/06/2011 07/17/2016 Overview: ICD-10 Go-Live Urgency of urination 05/09/2010 012 Hematuria 02/27/2005 04/21/2005 documented as of this encounter (statuses as of 11/12/2022) [facility] History of Past illness Narrative* Problem Noted Date Diagnosed Date Resolved Date Hemochromatosis 08/03/2014 07/17/2016 Disorder of iron metabolism, unspecified 11/06/2011 07/17/2016 Overview: ICD-10 Go-Live Urgency of urination 05/09/2010 012 Hematuria 02/27/2005 04/21/2005 documented as of this encounter (statuses as of 12/15/2022) [facility] History of Past illness Narrative* Problem Noted Date Diagnosed Date Resolved Date Hemochromatosis 08/03/2014 07/17/2016 Disorder of iron metabolism, unspecified 11/06/2011 07/17/2016 Overview: ICD-10 Go-Live Urgency of urination 05/09/2010 012 Hematuria 02/27/2005 04/21/2005 documented as of this encounter (statuses as of 12/21/2022) [facility] History of Past illness Narrative* Problem Noted Date Diagnosed Date Resolved Date Hemochromatosis 08/03/2014 07/17/2016 Disorder of iron metabolism, unspecified 11/06/2011 07/17/2016 Overview: ICD-10 Go-Live Urgency of urination 05/09/2010 012 Hematuria 02/27/2005 04/21/2005 documented as of this encounter (statuses as of 12/26/2022) [facility] History of Past illness Narrative* Problem Noted Date Diagnosed Date Resolved Date Hemochromatosis 08/03/2014 07/17/2016 Disorder of iron metabolism, unspecified 11/06/2011 07/17/2016 Overview: ICD-10 Go-Live Urgency of urination 05/09/2010 012 Hematuria 02/27/2005 04/21/2005 documented as of this encounter (statuses as of 01/12/2023) [facility] History of Past illness Narrative* Problem Noted Date Diagnosed Date Resolved Date Hemochromatosis 08/03/2014 07/17/2016 Disorder of iron metabolism, unspecified 11/06/2011 07/17/2016 Overview: ICD-10 Go-Live Urgency of urination 05/09/2010 012 Hematuria 02/27/2005 04/21/2005 documented as of this encounter (statuses as of 01/12/2023) [facility] History of Past illness Narrative* Problem Noted Date Diagnosed Date Resolved Date Hemochromatosis 08/03/2014 07/17/2016 Disorder of iron metabolism, unspecified 11/06/2011 07/17/2016 Overview: ICD-10 Go-Live Urgency of urination 05/09/2010 012 Hematuria 02/27/2005 04/21/2005 documented as of this encounter (statuses as of 01/15/2023) [facility] History of Past illness Narrative* Problem Noted Date Diagnosed Date Resolved Date Hemochromatosis 08/03/2014 07/17/2016 Disorder of iron metabolism, unspecified 11/06/2011 07/17/2016 Overview: ICD-10 Go-Live Urgency of urination 05/09/2010 012 Hematuria 02/27/2005 04/21/2005 documented as of this encounter (statuses as of 02/10/2023) [facility] History of Past illness Narrative* Problem Noted Date Diagnosed Date Resolved Date Hemochromatosis 08/03/2014 07/17/2016 Disorder of iron metabolism, unspecified 11/06/2011 07/17/2016 Overview: ICD-10 Go-Live Urgency of urination 05/09/2010 012 Hematuria 02/27/2005 04/21/2005 documented as of this encounter (statuses as of 02/11/2023) [facility] History of Past illness Narrative* Problem Noted Date Diagnosed Date Resolved Date Hemochromatosis 08/03/2014 07/17/2016 Disorder of iron metabolism, unspecified 11/06/2011 07/17/2016 Overview: ICD-10 Go-Live Urgency of urination 05/09/2010 012 Hematuria 02/27/2005 04/21/2005 documented as of this encounter (statuses as of 02/14/2023) [facility] History of Past illness Narrative* Problem Noted Date Diagnosed Date Resolved Date Hemochromatosis 08/03/2014 07/17/2016 Disorder of iron metabolism, unspecified 11/06/2011 07/17/2016 Overview: ICD-10 Go-Live Urgency of urination 05/09/2010 012 Hematuria 02/27/2005 04/21/2005 documented as of this encounter (statuses as of 05/08/2023) [facility] History of Past illness Narrative* Problem Noted Date Diagnosed Date Resolved Date Hemochromatosis 08/03/2014 07/17/2016 Disorder of iron metabolism, unspecified 11/06/2011 07/17/2016 Overview: ICD-10 Go-Live Urgency of urination 05/09/2010 012 Hematuria 02/27/2005 04/21/2005 documented as of this encounter (statuses as of 05/13/2023) [facility] for [facility] Narrative* Chief Complaint COVID TEST Covid + per home test Annual Reason for Visit Suspected COVID-19 v irus infection Upper respiratory infection Vitamin D deficiency GERD (gastroesophageal reflux disease) Hemochromatosis Neuropathy Psoriasis [facility] Work Phone: Evaluation + Plan note No data available for this section [facility] Evaluation note* Diagnosis Onset Date Resolution Status Suspected COVID-19 virus infection acute Upper respiratory infection acute Vitamin D deficiency acute GERD (gastroesophageal reflux disease) chronic Hemochromatosis chronic Neuropathy chronic Psoriasis chronic [facility] Work Phone: Evaluation note* Diagnosis Hereditary hemochromatosis (HCC)- Primary Hereditary hemochromatosis Disorder of iron metabolism Other disorders of iron metabolism documented [facility] this [facility] Diagnosis Onset Date Resolution Status Vitamin D deficiency acute GERD (gastroesophageal reflux disease) chronic Hemochromatosis chronic Neuropathy chronic Psoriasis chronic Allergic rhinitis acute Change in stool acute Exposure to mold acute Osteopenia 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 a cute GERD (gastroesophageal reflux disease) chronic Seasonal allergies chronic [facility] Work Phone: Evaluation note* Diagnosis Onset Date Resolution Status Allergic rhinitis acute Change in stool acute Exposure to mold acute Osteopenia 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 a cute GERD (gastroesophageal reflux disease) chronic Seasonal allergies chronic [facility] Work Phone: Evaluation note* Diagnosis Disorder of iron metabolism- Primary Other disorders of iron metabolism [facility] Onset Date Resolution Status Exposure to mold acute Osteopenia 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 a cute Vitamin D deficiency acute Hemochromatosis chronic Macular degeneration chronic 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 [facility] this [facility] Diagnosis Hereditary hemochromatosis (HCC)- Primary Hereditary hemochromatosis [facility] Diagnosis Hereditary hemochromatosis (HCC)- Primary Hereditary hemochromatosis Secondary polycythemia Polycythemia, secondary History of ductal carcinoma in situ (DCIS) of breast documented [facility] this [facility] Diagnosis Hereditary hemochromatosis (HCC)- Primary Hereditary hemochromatosis Disorder of iron metabolism Other disorders of iron metabolism [facility] Diagnosis Hereditary hemochromatosis (HCC)- Primary Hereditary hemochromatosis [facility]* Diagnosis URI with cough and congestion- Primary [facility] Diagnosis Hereditary hemochromatosis (HCC)- Primary Hereditary hemochromatosis Secondary polycythemia Polycythemia, secondary History of ductal carcinoma in situ (DCIS) of breast [facility]* Diagnosis Disorder of iron metabolism- Primary Other disorders of iron metabolism Hereditary hemochromatosis (HCC) Hereditary hemochromatosis [facility]* Diagnosis Screening breast examination- Primary Breast screening, unspecified [facility]* Diagnosis Throat irritation- Primary Other diseases of pharynx, not elsewhere classified [facility]* Diagnosis Urinary frequency- Primary Recurrent UTI (urinary tract infection) Urinary tract infection, site not specified [facility]* Diagnosis Rectal bleeding- Primary Hemorrhage of rectum and anus [facility]* Diagnosis Screening breast examination Breast screening, unspecified [facility]* Diagnosis Ductal carcinoma in situ (DCIS) of left breast [facility]* Diagnosis Hereditary hemochromatosis (HCC) Hereditary hemochromatosis [facility]* Diagnosis Screening for colon cancer- Primary Special screening for malignant neoplasms, colon [facility]* Diagnosis Onset Date Resolution Status Ductal carcinoma in situ (DCIS) of breast acute Osteopenia 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 a cute Visual changes acute Vitamin D deficiency acute Neuropathy chronic Vegan diet chronic [facility] Work Phone: Evaluation note* Diagnosis Onset Date Resolution Status Ductal carcinoma in situ (DCIS) of breast acute Osteopenia 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 a cute Visual changes acute Vitamin D deficiency acute Neuropathy chronic Vegan diet chronic Urinary tract infection none active [facility] Work Phone: Evaluation note* Diagnosis Hereditary hemochromatosis (HCC)- Primary Hereditary hemochromatosis Secondary polycythemia Polycythemia, secondary [facility]* Diagnosis Disorder of iron metabolism- Primary Other disorders of iron metabolism [facility]* Diagnosis Disorder of iron metabolism- Primary Other disorders of iron metabolism [facility] Diagnosis Onset Date Resolution Status Aortic stenosis acute Brain fog acute Oral allergy syndrome acute Vitamin D deficiency acute Arthritis chronic Cataract chronic Glaucoma chronic Hemochromatosis chronic Macular degeneration chronic Osteopenia chronic [facility] Work Phone: Evaluation note* Diagnosis Medication management- Primary Encounter for long-term (current) use of other medications [facility] Diagnosis Subjective memory complaints- Primary Memory loss Impaired memory Memory loss Forgetfulness Other general symptoms [facility]* Diagnosis Disorder of iron metabolism- Primary Other disorders of iron metabolism [facility]* Diagnosis Hypercholesterolemia- Primary Pure hypercholesterolemia History of CVA (cerebrovascular accident) Transient ischemic attack (TIA), and cerebral infarction without residual deficits Anxiety about health Mild cognitive impairment Mild cognitive impairment, so stated Remote history of stroke Transient ischemic attack (TIA), and cerebral infarction without residual deficits [facility]* Diagnosis ASTHMA UNSPECIFIED Unspecified asthma Esophageal reflux OSTEOPENIA Disorder of bone and cartilage, unspecified Allergy Allergy, unspecified not elsewhere classified Disorder of iron metabolism Other disorders of iron metabolism Hereditary hemochromatosis (HCC)- Primary Hereditary hemochromatosis Encounter for screening breast examination documented [facility] this [facility]* Diagnosis ASTHMA UNSPECIFIED Unspecified asthma Esophageal reflux OSTEOPENIA Disorder of bone and cartilage, unspecified Allergy Allergy, unspecified not elsewhere classified Disorder of iron metabolism Other disorders of iron metabolism Hereditary hemochromatosis (HCC)- Primary Hereditary hemochromatosis Disorder of iron metabolism Other disorders of iron metabolism [facility]* Diagnosis ASTHMA UNSPECIFIED Unspecified asthma Esophageal reflux OSTEOPENIA Disorder of bone and cartilage, unspecified Allergy Allergy, unspecified not elsewhere classified Disorder of iron metabolism Other disorders of iron metabolism Impaired memory Memory loss Forgetfulness Other general symptoms [facility] this [facility]* Diagnosis ASTHMA UNSPECIFIED Unspecified asthma Esophageal reflux OSTEOPENIA Disorder of bone and cartilage, unspecified Allergy Allergy, unspecified not elsewhere classified Disorder of iron metabolism Other disorders of iron metabolism Encounter for screening breast examination [facility]* Diagnosis ASTHMA UNSPECIFIED Unspecified asthma Esophageal reflux OSTEOPENIA Disorder of bone and cartilage, unspecified Allergy Allergy, unspecified not elsewhere classified Disorder of iron metabolism Other disorders of iron metabolism Hereditary hemochromatosis (HCC)- Primary Hereditary hemochromatosis documented [facility] this [facility]* Diagnosis ASTHMA UNSPECIFIED Unspecified asthma Esophageal reflux OSTEOPENIA Disorder of bone and cartilage, unspecified Allergy Allergy, unspecified not elsewhere classified 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 documented [facility] this [facility]* Diagnosis ASTHMA UNSPECIFIED Unspecified asthma Esophageal reflux OSTEOPENIA Disorder of bone and cartilage, unspecified Allergy Allergy, unspecified not elsewhere classified Disorder of iron metabolism Other disorders of iron metabolism Silent cerebral infarction (HCC)- Primary Mild cognitive impairment Mild cognitive impairment, so stated Functional gastrointestinal disorder Unspecified functional disorder of stomach [facility] this [facility]* Diagnosis ASTHMA UNSPECIFIED Unspecified asthma Esophageal reflux OSTEOPENIA Disorder of bone and cartilage, unspecified Allergy Allergy, unspecified not elsewhere classified Disorder of iron metabolism Other disorders of iron metabolism Hereditary hemochromatosis (HCC)- Primary Hereditary hemochromatosis Disorder of iron metabolism Other disorders of iron metabolism documented in this [facility]* Diagnosis ASTHMA UNSPECIFIED Unspecified asthma Esophageal reflux OSTEOPENIA Disorder of bone and cartilage, unspecified Allergy Allergy, unspecified not elsewhere classified Disorder of iron metabolism Other disorders of iron metabolism Alteration in metabolic function- Primary Brain fog Allergy, initial encounter High vitamin D level Hypervitaminosis D [facility] Diagnosis ASTHMA UNSPECIFIED Unspecified asthma Esophageal [...] choroidal neovascularization (HCC) documented in this encounter [facility]* Diagnosis ASTHMA UNSPECIFIED Unspecified asthma Esophageal reflux OSTEOPENIA Disorder of bone and cartilage, unspecified Allergy Allergy, unspecified not elsewhere classified 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 documented in this encounter [facility]* Diagnosis ASTHMA UNSPECIFIED Unspecified asthma Esophageal reflux OSTEOPENIA Disorder of bone and cartilage, unspecified Allergy Allergy, unspecified not elsewhere classified Disorder of iron metabolism Other disorders of iron metabolism Hereditary hemochromatosis- Primary Ductal carcinoma in situ (DCIS) of left breast documented [facility] this [facility] Diagnosis ASTHMA UNSPECIFIED Unspecified asthma Esophageal reflux OSTEOPENIA Disorder of bone and cartilage, unspecified Allergy Allergy, unspecified not elsewhere classified 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 Over the counter pain medicine as needed for pain such as Tylenol. Return back to the ED if symptoms change or worsen. Recommend allergy medicine for your nasal congestion. Cannot prescribe Flonase as you have steroids listed as an allergy.[facility] Work Phone: Hospital Discharge instructionsAdditional Instructions Follow-up with Dr. Chan. With ophthalmology tomorrow as scheduled. Return with increasing chest pain or continued heart palpitations, new or worsening symptoms.[facility] Work Phone: Reason for referral (narrative)* Diagnostic Procedure Only (Routine) - Authorized Specialty Diagnoses / Procedures Referred By Liz lutz Referred To Contact US IMAGING Diagnoses Hereditary hemochromatosis (HCC) Procedures US ABD RT UPPER QUADRANT US ABDOMINAL REAL TIME W/IMAGE LIMITED Luis Ron DO [address] [place] [address] Us [facility] Referral ID Status Reason Start Date Expiration Date Visits Requested Visits Authorized [id number] Authorized Auto-Generat ed Referral 05/22/2022 06/21/2023 1 1 [facility] for referral (narrative)* Diagnostic Procedure Only (Routine) - Pending Review Specialty Diagnoses / Procedures Referred By Liz lutz Referred To Contact BR IMAGING Diagnoses Screening breast examination Procedures GOOD SCREENING SCREENING MAMMOGRAPHY BI 2-VIEW BREAST INC CAD Mi Douglas MD [address] [place] [address] [facility] [address] [place] [address] Referral ID Status Reason Start Date Expiration Date Visits Requested Visits Authorized [id number] Pending Review Auto-Generat ed Referral 10/25/2022 11/24/2023 1 1 [facility] for referral (narrative)* Diagnostic Procedure Only (Routine) - Closed Specialty Diagnoses / Procedures Referred By Liz lutz Referred To Contact BR IMAGING Diagnoses Screening breast examination Procedures GOOD SCREENING SCREENING MAMMOGRAPHY BI 2-VIEW BREAST INC Mi Menard MD [address] [place] [address] [facility] [address] [place] [address] Referral ID Status Reason Start Date Expiration Date V isits Requested Visits Authorized [id number] Closed Auto-Generate d Referral 10/25/2022 11/24/2023 1 1 [facility] for referral (narrative)* Diagnostic Procedure Only (Routine) - Closed Specialty Diagnoses / Procedures Referred By Liz lutz Referred To Contact BR IMAGING Diagnoses Ductal carcinoma in situ (DCIS) of left breast Procedures GOOD SCREENING SCREENING MAMMOGRAPHY BI 2-VIEW BREAST INC Mi Menard MD [address] [place] [address] [facility] [address] [place] [address] Referral ID Status Reason Start Date Expiration Date V isits Requested Visits Authorized [id number] Closed Auto-Generate d Referral 01/03/2022 02/03/2022 1 1 [facility] for referral (narrative)* Diagnostic Procedure Only (Routine) - Closed Specialty Diagnoses / Procedures Referred By Liz lutz Referred To Contact US IMAGING Diagnoses Hereditary hemochromatosis (HCC) Procedures US ABD RT UPPER QUADRANT US ABDOMINAL REAL TIME W/IMAGE LIMITED Luis Ron DO [address] [place] [address] [place] [id number] Referral ID Status Reason Start Date Expiration Date V isits Requested Visits Authorized [id number] Closed Auto-Generate d Referral 05/22/2022 06/21/2023 1 1 [facility] for referral (narrative)* Diagnostic Procedure Only (Routine) - Authorized Specialty Diagnoses / Procedures Referred By Liz t Referred To Contact BR IMAGING Diagnoses Encounter for screening breast examination Procedures GOOD SCREENING W MALOU SCREENING DIGITAL BREAST TOMOSYNTHESIS BI SCREENING MAMMOGRAPHY BI 2-VIEW BREAST INC CAD Luis Ron DO [address] [place] [address] [facility] [address] [place] [address] Referral ID Status Reason Start Date Expiration Date Visits Requested Visits Authorized [id number] Authorized Auto-Generat ed Referral 11/11/2023 12/10/2024 1 1 [facility] for referral (narrative)No reason for referral information [facility]WBu[facility] Work Phone: [facility] for visit Narrative* Diagnostic Procedure Only (Routine) - Closed Specialty Diagnoses / Procedures Referred By Liz lutz Referred To Contact BR IMAGING Diagnoses Screening breast examination Procedures GOOD SCREENING SCREENING MAMMOGRAPHY BI 2-VIEW BREAST INC CAD Mi Douglas MD [address] [place] [address] [facility] [address] [place] [address] Referral ID Status Reason Start Date Expiration Date V isits Requested Visits Authorized [id number] Closed Auto-Generate d Referral 10/25/2022 11/24/2023 1 1 [facility] for visit Narrative* Diagnostic Procedure Only (Routine) - Closed Specialty Diagnoses / Procedures Referred By Liz t Referred To Contact BR IMAGING Diagnoses Ductal carcinoma in situ (DCIS) of left breast Procedures GOOD SCREENING SCREENING MAMMOGRAPHY BI 2-VIEW BREAST INC CAD Mi Douglas MD [address] [place] [address] [facility] [address] [place] [address] Referral ID Status Reason Start Date Expiration Date V isits Requested Visits Authorized [id number] Closed Auto-Generate d Referral 01/03/2022 02/03/2022 1 1 [facility] Diagnostic Procedure Only (Routine) - Closed Specialty Diagnoses / Procedures Referred By Contac t Referred To Contact BR IMAGING Diagnoses Encounter for screening breast examination Procedures GOOD SCREENING W MALOU SCREENING DIGITAL BREAST TOMOSYNTHESIS BI SCREENING MAMMOGRAPHY BI 2-VIEW BREAST INC Luis Saunders, DO [address] [place] [address] [facility] [address] [place] [address] Referral ID Status Reason Start Date Expiration Date V isits Requested Visits Authorized [id number] Closed Auto-Generate d Referral 11/11/2023 12/10/2024 1 1 [facility] Family History No Family History Records Found [...] Yes October 16, 2018 11:28am Power of Planer Feeder Yes October 16 11:28am Documents on File Type Date 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 Advance Directive(s) 11/12/2016 9:46 AM Advance Directive Response Recorded Date/ Time Name of Medical Power of Planer Feeder Randallyoli Armstrongmonica n October 31, 2021 1:00pm Advance Directives Yes February 11:37pm Living Will Yes October 31 1:00pm Power of Planer Feeder Yes October 31 1:00pm Advance Directive Response Recorded Date/ Time Name of Medical Power of Planer Feeder Randall Gutierrezsukhjindermonica n October 31, 2021 12:00pm Advance Directives Yes February 10:37pm Living Will Yes October 31 12:00pm Power of Planer Feeder Yes October 31 12:00pm Advance Directive Response Recorded Date/ Time Advance Directives Yes January 2:25pm Living Will Yes January 25, 2 022 2:25pm Power of Planer Feeder Yes January 25, 2022 2:25pm Advance Directive Response Recorded Date/ Time Advance Directives Yes January 3:25pm Living Will Yes January 25, 022 3:25pm Power of Planer Feeder Yes January 25, 2022 3:25pm Advance Directive Response Recorded Date/ Time Advance Directives Yes July 20 2:05pm Advance Directive Response Recorded Date/ Time Advance Directives Yes July 20 2:05pm Do you have a Healthcare Power of Planer Feeder? Yes September 12, 2024 8:48am Name of Medical Power of Planer Feeder Chris Restrepo n September 12, 2024 8:48am Advance Directive Response Recorded Date/ Time Advance Directives Yes September 13 10:03am Do you have a Healthcare Power of Planer Feeder? Yes September 12, 2024 8:48am Name of Medical Power of Planer Feeder Chris Restrepo n September 12, 2024 8:48am Advance Directive Response Recorded Date/ Time Advance Directives Yes September 13 10:03am Do you have a Healthcare Pow er of Planer Feeder? Yes December 01, 2024 4:48pm Do you have a Healthcare Pow er of Planer Feeder? Yes September 12, 2024 8:48am Name of Medical Power of Planer Feeder Chris Restrepo n September 12, 2024 8:48am [...] left leg September 12, 2024 8:33a m [facility] FU September 15, 2024 9:31a m [...] left leg September 12, 2024 8:33a m [facility] FU September 15, 2024 9:31a m CONCERN FOR UTI October 18, 2024 6: 36am Chief Complaint Admit Date CONGESTION, SINUS, THROAT BLOCKAGE September 01, 2024 3:41pm [facility] September 07, 2024 8:57a m left leg September 12, 2024 8:33a m [facility] FU September 15, 2024 9:31a m CONCERN FOR UTI October 18, 2024 6: 36am Palpitations December 01, 2024 2:32pm Reason for Visit Admit Date Left knee pain September 15, 2024 9:31a m Congested nose September 15, 2024 9:31a m Summary Purpose Reason for Referral Specialty Diagnoses / Procedures Referred By Liz lutz Referred To Contact MR IMAGING Diagnoses Impaired memory Forgetfulness Procedures MRI 3D POST PROCESSING 3D RENDERING W/INTERP&POSTPROC DIFF WORK STATION Airam Martinez APRN.CUSTOMER ASSOCIATE [address] [place] [address] [facility] [place] [address] Referral ID Status Reason Start Date Expiration Date Visits Requested Visits Authorized [id number] Pending Review Auto-Generat ed Referral 08/15/2023 09/13/2024 1 1 Specialty Diagnoses / Procedures Referred By Stephonac t Referred To Contact MR IMAGING Diagnoses Impaired memory Forgetfulness Procedures MRI BRAIN WO IVCON MRI BRAIN BRAIN STEM W/O CONTRAST MATERIAL Airam Martinez APRN.CUSTOMER ASSOCIATE [address] [id number] [facility] [place] [address] Referral ID Status Reason Start Date Expiration Date Visits Requested Visits Authorized [id number] Pending Review Auto-Generat ed Referral 08/15/2023 09/13/2024 1 1 Specialty Diagnoses / Procedures Referred By Contac t Referred To Contact Psychology Diagnoses Anxiety about health Procedures CONSULT TO PSYCHOLOGY OFFICE/OUTPATIENT [facility] 60 MINUTES Oli Avery MD [address] [place] [address] Referral ID Status Reason Start Date Expiration Date Visits Requested Visits Authorized [id number] Pending Review PCP Requested Referral 09/25/2023 09/24/2024 1 1 Referral ID Status Reason Start Date Expiration Date V isits Requested Visits Authorized [id number] Closed Auto-Generate d Referral 08/15/2023 09/13/2024 1 1 Referral ID Status Reason Start Date Expiration Date V isits Requested Visits Authorized [id number] Closed Auto-Generate d Referral 08/15/2023 09/13/2024 1 [...] or prosecute any alcohol or drug abuse patient.[facility] ShawIn the event this information is protected by the Federal Confidentiality of Alcohol and Drug Abuse Patient Records regulations: The Federal rules restrict any use of the information to criminally investigate or prosecute any alcohol or drug abuse patient.[facility] ShawIn the event this information is protected by the Federal Confidentiality of Alcohol and Drug Abuse Patient Records regulations: The Federal rules restrict any use of the information to criminally investigate or prosecute any alcohol or drug abuse patient.[facility] ShawIn the event this information is protected by the Federal Confidentiality of Alcohol and Drug Abuse Patient Records regulations: The Federal rules restrict any use of the information to criminally investigate or prosecute any alcohol or drug abuse patient.[facility] ShawIn the event this information is protected by the Federal Confidentiality of Alcohol and Drug Abuse Patient Records regulations: The Federal rules restrict any use of the information to criminally investigate or prosecute any alcohol or drug abuse patient.[facility] ShawIn the event this information is protected by the Federal Confidentiality of Alcohol and Drug Abuse Patient Records regulations: The Federal rules restrict any use of the information to criminally investigate or prosecute any alcohol or drug abuse patient.[facility] ShawIn the event this information is protected by the Federal Confidentiality of Alcohol and Drug Abuse Patient Records regulations: The Federal rules restrict any use of the information to criminally investigate or prosecute any alcohol or drug abuse patient.[facility] ShawIn the event this information is protected by the Federal Confidentiality of Alcohol and Drug Abuse Patient Records regulations: The Federal rules restrict any use of the information to criminally investigate or prosecute any alcohol or drug abuse patient.[facility] ShawIn the event this information is protected by the Federal Confidentiality of Alcohol and Drug Abuse Patient Records regulations: The Federal rules restrict any use of the information to criminally investigate or prosecute any alcohol or drug abuse patient.[facility] ShawIn the event this information is protected by the Federal Confidentiality of Alcohol and Drug Abuse Patient Records regulations: The Federal rules restrict any use of the information to criminally investigate or prosecute any alcohol or drug abuse patient.[facility] ShawIn the event this information is protected by the Federal Confidentiality of Alcohol and Drug Abuse Patient Records regulations: The Federal rules restrict any use of the information to criminally investigate or prosecute any alcohol or drug abuse patient.[facility] ShawIn the event this information is protected by the Federal Confidentiality of Alcohol and Drug Abuse Patient Records regulations: The Federal rules restrict any use of the information to criminally investigate or prosecute any alcohol or drug abuse patient.[facility] ShawIn the event this information is protected by the Federal Confidentiality of Alcohol and Drug Abuse Patient Records regulations: The Federal rules restrict any use of the information to criminally investigate or prosecute any alcohol or drug abuse patient.[facility] ShawIn the event this information is protected by the Federal Confidentiality of Alcohol and Drug Abuse Patient Records regulations: The Federal rules restrict any use of the information to criminally investigate or prosecute any alcohol or drug abuse patient.[facility] ShawIn the event this information is protected by the Federal Confidentiality of Alcohol and Drug Abuse Patient Records regulations: The Federal rules restrict any use of the information to criminally investigate or prosecute any alcohol or drug abuse patient.[facility] ShawIn the event this information is protected by the Federal Confidentiality of Alcohol and Drug Abuse Patient Records regulations: The Federal rules restrict any use of the information to criminally investigate or prosecute any alcohol or drug abuse patient.[facility] ShawIn the event this information is protected by the Federal Confidentiality of Alcohol and Drug Abuse Patient Records regulations: The Federal rules restrict any use of the information to criminally investigate or prosecute any alcohol or drug abuse patient.[facility] ShawIn the event this information is protected by the Federal Confidentiality of Alcohol and Drug Abuse Patient Records regulations: The Federal rules restrict any use of the information to criminally investigate or prosecute any alcohol or drug abuse patient.[facility] ShawIn the event this information is protected by the Federal Confidentiality of Alcohol and Drug Abuse Patient Records regulations: The Federal rules restrict any use of the information to criminally investigate or prosecute any alcohol or drug abuse patient.[facility] ShawIn the event this information is protected by the Federal Confidentiality of Alcohol and Drug Abuse Patient Records regulations: The Federal rules restrict any use of the information to criminally investigate or prosecute any alcohol or drug abuse patient.[facility] ShawIn the event this information is protected by the Federal Confidentiality of Alcohol and Drug Abuse Patient Records regulations: The Federal rules restrict any use of the information to criminally investigate or prosecute any alcohol or drug abuse patient.[facility] ShawIn the event this information is protected by the Federal Confidentiality of Alcohol and Drug Abuse Patient Records regulations: The Federal rules restrict any use of the information to criminally investigate or prosecute any alcohol or drug abuse patient.[facility] ShawIn the event this information is protected by the Federal Confidentiality of Alcohol and Drug Abuse Patient Records regulations: The Federal rules restrict any use of the information to criminally investigate or prosecute any alcohol or drug abuse patient.[facility] ShawIn the event this information is protected by the Federal Confidentiality of Alcohol and Drug Abuse Patient Records regulations: The Federal rules restrict any use of the information to criminally investigate or prosecute any alcohol or drug abuse patient.[facility] ShawIn the event this information is protected by the Federal Confidentiality of Alcohol and Drug Abuse Patient Records regulations: The Federal rules restrict any use of the information to criminally investigate or prosecute any alcohol or drug abuse patient.[facility] ShawIn the event this information is protected by the Federal Confidentiality of Alcohol and Drug Abuse Patient Records regulations: The Federal rules restrict any use of the information to criminally investigate or prosecute any alcohol or drug abuse patient.[facility] ShawIn the event this information is protected by the Federal Confidentiality of Alcohol and Drug Abuse Patient Records regulations: The Federal rules restrict any use of the information to criminally investigate or prosecute any alcohol or drug abuse patient.[facility] ShawIn the event this information is protected by the Federal Confidentiality of Alcohol and Drug Abuse Patient Records regulations: The Federal rules restrict any use of the information to criminally investigate or prosecute any alcohol or drug abuse patient.[facility] ShawIn the event this information is protected by the Federal Confidentiality of Alcohol and Drug Abuse Patient Records regulations: The Federal rules restrict any use of the information to criminally investigate or prosecute any alcohol or drug abuse patient.[facility] ShawIn the event this information is protected by the Federal Confidentiality of Alcohol and Drug Abuse Patient Records regulations: The Federal rules restrict any use of the information to criminally investigate or prosecute any alcohol or drug abuse patient.[facility] ShawIn the event this information is protected by the Federal Confidentiality of Alcohol and Drug Abuse Patient Records regulations: The Federal rules restrict any use of the information to criminally investigate or prosecute any alcohol or drug abuse patient.[facility] ShawIn the event this information is protected by the Federal Confidentiality of Alcohol and Drug Abuse Patient Records regulations: The Federal rules restrict any use of the information to criminally investigate or prosecute any alcohol or drug abuse patient.[facility] ShawIn the event this information is protected by the Federal Confidentiality of Alcohol and Drug Abuse Patient Records regulations: The Federal rules restrict any use of the information to criminally investigate or prosecute any alcohol or drug abuse patient.[facility] ShawIn the event this information is protected by the Federal Confidentiality of Alcohol and Drug Abuse Patient Records regulations: The Federal rules restrict any use of the information to criminally investigate or prosecute any alcohol or drug abuse patient.[facility] ShawIn the event this information is protected by the Federal Confidentiality of Alcohol and Drug Abuse Patient Records regulations: The Federal rules restrict any use of the information to criminally investigate or prosecute any alcohol or drug abuse patient.[facility] ShawIn the event this information is protected by the Federal Confidentiality of Alcohol and Drug Abuse Patient Records regulations: The Federal rules restrict any use of the information to criminally investigate or prosecute any alcohol or drug abuse patient.[facility] ShawIn the event this information is protected by the Federal Confidentiality of Alcohol and Drug Abuse Patient Records regulations: The Federal rules restrict any use of the information to criminally investigate or prosecute any alcohol or drug abuse patient.[facility] ShawIn the event this information is protected by the Federal Confidentiality of Alcohol and Drug Abuse Patient Records regulations: The Federal rules restrict any use of the information to criminally investigate or prosecute any alcohol or drug abuse patient.[facility] ShawIn the event this information is protected by the Federal Confidentiality of Alcohol and Drug Abuse Patient Records regulations: The Federal rules restrict any use of the information to criminally investigate or prosecute any alcohol or drug abuse patient.[facility] ShawIn the event this information is protected by the Federal Confidentiality of Alcohol and Drug Abuse Patient Records regulations: The Federal rules restrict any use of the information to criminally investigate or prosecute any alcohol or drug abuse patient.[facility] ShawIn the event this information is protected by the Federal Confidentiality of Alcohol and Drug Abuse Patient Records regulations: The Federal rules restrict any use of the information to criminally investigate or prosecute any alcohol or drug abuse patient.[facility] ShawIn the event this information is protected by the Federal Confidentiality of Alcohol and Drug Abuse Patient Records regulations: The Federal rules restrict any use of the information to criminally investigate or prosecute any alcohol or drug abuse patient.[facility] ShawIn the event this information is protected by the Federal Confidentiality of Alcohol and Drug Abuse Patient Records regulations: The Federal rules restrict any use of the information to criminally investigate or prosecute any alcohol or drug abuse patient.[facility] ShawIn the event this information is protected by the Federal Confidentiality of Alcohol and Drug Abuse Patient Records regulations: The Federal rules restrict any use of the information to criminally investigate or prosecute any alcohol or drug abuse patient.[facility] ShawIn the event this information is protected by the Federal Confidentiality of Alcohol and Drug Abuse Patient Records regulations: The Federal rules restrict any use of the information to criminally investigate or prosecute any alcohol or drug abuse patient.[facility] ShawIn the event this information is protected by the Federal Confidentiality of Alcohol and Drug Abuse Patient Records regulations: The Federal rules restrict any use of the information to criminally investigate or prosecute any alcohol or drug abuse patient.[facility] ShawIn the event this information is protected by the Federal Confidentiality of Alcohol and Drug Abuse Patient Records regulations: The Federal rules restrict any use of the information to criminally investigate or prosecute any alcohol or drug abuse patient.[facility] ShawIn the event this information is protected by the Federal Confidentiality of Alcohol and Drug Abuse Patient Records regulations: The Federal rules restrict any use of the information to criminally investigate or prosecute any alcohol or drug abuse patient.[facility] ShawIn the event this information is protected by the Federal Confidentiality of Alcohol and Drug Abuse Patient Records regulations: The Federal rules restrict any use of the information to criminally investigate or prosecute any alcohol or drug abuse patient.[facility] ShawIn the event this information is protected by the Federal Confidentiality of Alcohol and Drug Abuse Patient Records regulations: The Federal rules restrict any use of the information to criminally investigate or prosecute any alcohol or drug abuse patient.[facility] ShawIn the event this information is protected by the Federal Confidentiality of Alcohol and Drug Abuse Patient Records regulations: The Federal rules restrict any use of the information to criminally investigate or prosecute any alcohol or drug abuse patient.[facility] ShawIn the event this information is protected by the Federal Confidentiality of Alcohol and Drug Abuse Patient Records regulations: The Federal rules restrict any use of the information to criminally investigate or prosecute any alcohol or drug abuse patient.[facility] ShawIn the event this information is protected by the Federal Confidentiality of Alcohol and Drug Abuse Patient Records regulations: The Federal rules restrict any use of the information to criminally investigate or prosecute any alcohol or drug abuse patient.[facility] ShawIn the event this information is protected by the Federal Confidentiality of Alcohol and Drug Abuse Patient Records regulations: The Federal rules restrict any use of the information to criminally investigate or prosecute any alcohol or drug abuse patient.[facility] Reason for Visit (unrecogniz ed section and content) Reason Comments Phlebotomy Specialty Diagnoses / Procedures Referred By Liz t Referred To Contact Hematology / HEMATOLOGY/ONCOLOGY Diagnoses ([id number] ?PHLEBO/LABS 08/14* CBC/CMP/IRON STUDIES/AFP/1YR OV(MASCI) DUE 05/30 Procedures 1 HR TX Luis Ron, DO [address] [place] [address] [facility] [address] [place] [address] Referral ID Status Reason Start Date Expiration Date V isits Requested Visits Authorized [id number] Pending Review 11/21/2021 02/19/2022 1 1 Reason [...] US Specialty Diagnoses / Procedures Referred By Liz t Referred To Contact US IMAGING Diagnoses Hereditary hemochromatosis (HCC) Procedures US ABD RT UPPER QUADRANT US ABDOMINAL REAL TIME W/IMAGE LIMITED Luis Ron, DO [address] [place] [address] [place] [address] Referral ID Status Reason Start Date Expiration Date V isits Requested Visits Authorized [id number] Closed Auto-Generate d Referral 05/22/2022 06/21/2023 1 1 Reason Comments Follow Up 1 year follow up owen ck s/p ductal carcinoma left breast Reason Comments Patient Update Reason Comments Patient Question Reason Comments New Patient Reason Comments New Patient New NI Patient Specialty Diagnoses / Procedures Referred By Contac t Referred To Contact Neurology Diagnoses History of CVA (cerebrovascular accident) Procedures CONSULT TO NEUROLOGY OFFICE/OUTPATIENT [facility] 60 MINUTES Airam Martinez, [employer] SELECTOR.CUSTOMER ASSOCIATE [address] [place] [address] Referral ID Status Reason Start Date Expiration Date V isits Requested Visits Authorized [id number] Closed PCP Requested Referral 09/03/2023 09/02/2024 1 1 Reason Comments 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 Installer - Other Records request Reason Comments Radiology MRI Specialty Diagnoses / Procedures Referred By Contac t Referred To Contact MR IMAGING Diagnoses Impaired memory Forgetfulness Procedures MRI BRAIN WO IVCON MRI BRAIN BRAIN STEM W/O CONTRAST MATERIAL Airam Martinez, STUMM[employer] SELECTOR.CUSTOMER ASSOCIATE [address] [place] [address] [place] [address] Referral ID Status Reason Start Date Expiration Date V isits Requested Visits Authorized [id number] Closed Auto-Generate d Referral 08/15/2023 09/13/2024 1 1 Reason Comments Established Patient Follow-Up Reason Comments New Patient Brain fog Specialty Diagnoses / Procedures Referred By Contac t Referred To Contact Diagnoses Functional gastrointestinal disorder Procedures CONSULT TO FUNCTIONAL MEDICINE OFFICE/OUTPATIENT [facility] 60 MINUTES Oli Avery MD [address] [place] [address] Phone: tel: fax: Referral ID Status Reason Start Date Expiration Date V isits Requested Visits Authorized [id number] Closed PCP Requested Referral 04/19/2024 04/19/2025 1 1 Reason Comments 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 Reason Comments Established Patient Care Teams (unrecognized sec tion and content) Certified Performance Technologist Relationship Specialty Start Date End Date Katarina Medina MD PCP - General Internal Medicine 11/17/19 Meryl Jansen MD, [address] [facility] [place] [address] Physician Radiation Oncology 04/13/18 Mandi Momin RN Specialty Avionics Installer Oncology 08/19/19 Certified Performance Technologist Relationship Specialty Start Date End Date Katarina Medina MD PCP - General Internal Medicine 11/17/19 Meryl Jansen MD, [address] [place] [address] Physician Radiation Oncology 04/13/18 Manid Momin RN Specialty Avionics Installer Oncology 08/19/19 Certified Performance Technologist Relationship Specialty Start Date End Date Katarina Medina MD PCP - General Internal Medicine 11/17/19 Meryl Jansen MD, [address] [place] [address] Physician Radiation Oncology 04/13/18 Mandi Momin RN Specialty Avionics Installer Oncology 08/19/19 Certified Performance Technologist Relationship Specialty Start Date End Date Katarina Medina MD PCP - General Internal Medicine 11/17/19 Meryl Jansen MD, [address] [place] [address] Physician Radiation Oncology 04/13/18 Mandi Momin RN Specialty Avionics Installer Oncology 08/19/19 Certified Performance Technologist Relationship Specialty Start Date End Date Katarina Medina MD PCP - General Internal Medicine 11/17/19 Meryl Jansen MD, [address] [place] [address] Physician Radiation Oncology 04/13/18 Mandi Momin RN Specialty Avionics Installer Oncology 08/19/19 Certified Performance Technologist Relationship Specialty Start Date End Date Katarina Medina MD PCP - General Internal Medicine 11/17/19 Meryl Jansen MDMD [address] [place] [address] Physician Radiation Oncology 04/13/18 Mandi Momin RN Specialty Avionics Installer Oncology 08/19/19 Certified Performance Technologist Relationship Specialty Start Date End Date Katarina Medina MD PCP - General Internal Medicine 11/17/19 Meryl Jansen MD, [address] [facility] [place] [address] Physician Radiation Oncology 04/13/18 Mandi Momin RN Specialty Avionics Installer Oncology 08/19/19 Certified Performance Technologist Relationship Specialty Start Date End Date Katarina Medina MD PCP - General Internal Medicine 11/17/19 Meryl Jansen MD, [address] [place] [address] Physician Radiation Oncology 04/13/18 Mandi Momin RN Specialty Avionics Installer Oncology 08/19/19 Certified Performance Technologist Relationship Specialty Start Date End Date Katarina Medina MD PCP - General Internal Medicine 11/17/19 Meryl Jansen MD, [address] [place] [address] Physician Radiation Oncology 04/13/18 Mandi Momin RN Specialty Avionics Installer Oncology 08/19/19 Certified Performance Technologist Relationship Specialty Start Date End Date Katarina Medina MD PCP - General Internal Medicine 11/17/19 Meryl Jansen MD, [address] [place] [address] Physician Radiation Oncology 04/13/18 Mandi Momin RN Specialty Avionics Installer Oncology 08/19/19 Certified Performance Technologist Relationship Specialty Start Date End Date Katarina Medina MD PCP - General Internal Medicine 11/17/19 Meryl Jansen MD, [address] [place] [address] Physician Radiation Oncology 04/13/18 Mandi Momin RN Specialty Avionics Installer Oncology 08/19/19 Certified Performance Technologist Relationship Specialty Start Date End Date Katarina Medina MD PCP - General Internal Medicine 11/17/19 Meryl Jansen MD, [address] [place] [address] Physician Radiation Oncology 04/13/18 Mandi Momin RN Specialty Avionics Installer Oncology 08/19/19 Certified Performance Technologist Relationship Specialty Start Date End Date Katarina Medina MD PCP - General Internal Medicine 11/17/19 Meryl Jansen MD, [address] [place] [address] Physician Radiation Oncology 04/13/18 Mandi Momin RN Specialty Avionics Installer Oncology 08/19/19 Certified Performance Technologist Relationship Specialty Start Date End Date Katarina Medina MD PCP - General Internal Medicine 11/17/19 Meryl Jansen MD, [address] [place] [address] Physician Radiation Oncology 04/13/18 Mandi Momin RN Specialty Avionics Installer Oncology 08/19/19 Certified Performance Technologist Relationship Specialty Start Date End Date Katarina Medina MD PCP - General Internal Medicine 11/17/19 Meryl Jansen MD, [address] [facility] [place] [address] Physician Radiation Oncology 04/13/18 Mandi Momin RN Specialty Avionics Installer Oncology 08/19/19 Certified Performance Technologist Relationship Specialty Start Date End Date Katarina Medina MD PCP - General Internal Medicine 11/17/19 Meryl Jansen MD, [address] [place] [address] Physician Radiation Oncology 04/13/18 Mandi Momin RN Specialty Avionics Installer Oncology 08/19/19 Team Status: Active Member Role [...] PA Attending Provider, Referring Pr ovider Active Certified Performance Technologist Relationship Specialty Start Date End Date Katarina Medina MD PCP - General Internal Medicine 11/17/19 Meryl Jansen MD, MD [address] [place] [address] Physician Radiation Oncology 04/13/18 Mandi Momin RN Specialty Avionics Installer Oncology 08/19/19 Certified Performance Technologist Relationship Specialty Start Date End Date Katarina Medina MD PCP - General Internal Medicine 11/17/19 Meryl Jansen MD [address] [place] [address] Physician Radiation Oncology 04/13/18 Mandi Momin RN Specialty Avionics Installer Oncology 08/19/19 Certified Performance Technologist Relationship Specialty Start Date End Date Katarina Medina MD PCP - General Internal Medicine 11/17/19 Meryl Jansen MD [address] [place] [address] Physician Radiation Oncology 04/13/18 Mandi Momin RN Specialty Avionics Installer Oncology 08/19/19 Team Status: Active Member Role Status Dates Dr. Katarina Medina MD Primary Care Provider, Referri ng Provider Active Dr. Seamus Turk MD Attending Provider Active Team Status: Active Member Role Status Dates Dr. Katarina Medina MD Primary Care Provider Active Dr. Laurence Billingsley MD Attending Provider Activ e Certified Performance Technologist Relationship Specialty Start Date End Date Katarina Medina MD PCP - General Internal Medicine 11/17/19 Meryl Jansen MD [address] [place] [address] Physician Radiation Oncology 04/13/18 Mandi Momin RN Specialty Avionics Installer Oncology 08/19/19 Certified Performance Technologist Relationship Specialty Start Date End Date Katarina Medina MD PCP - General Internal Medicine 11/17/19 Meryl Jansen MD [address] [place] [address] Physician Radiation Oncology 04/13/18 Mandi Momin RN Specialty Avionics Installer Oncology 08/19/19 Certified Performance Technologist Relationship Specialty Start Date End Date Katarina Medina MD PCP - General Internal Medicine 11/17/19 Meryl Jansen MD [address] [place] [address] Physician Radiation Oncology 04/13/18 Mandi Momin RN Specialty Avionics Installer Oncology 08/19/19 Certified Performance Technologist Relationship Specialty Start Date End Date Katarina Medina MD PCP - General Internal Medicine 11/17/19 Meryl Jansen MD [address] [facility] [place] [address] Physician Radiation Oncology 04/13/18 Mandi Momin RN Specialty Avionics Installer Oncology 08/19/19 Certified Performance Technologist Relationship Specialty Start Date End Date Katarina Medina MD PCP - General Internal Medicine 11/17/19 Meryl Jansen MD [address] [facility] [place], [place] [address] Physician Radiation Oncology 04/13/18 Mandi Momin RN Specialty Avionics Installer Oncology 08/19/19 Certified Performance Technologist Relationship Specialty Start Date End Date Katarina Medina MD PCP - General Internal Medicine 11/17/19 Meryl Jansen MD [address] [facility] [place] [address] Physician Radiation Oncology 04/13/18 Mandi Momin RN Specialty Avionics Installer Oncology 08/19/19 Certified Performance Technologist Relationship Specialty Start Date End Date Katarina Medina MD PCP - General Internal Medicine 11/17/19 Meyrl Jansen MD [address] [place], [place] [address] Physician Radiation Oncology 04/13/18 Mandi Momin RN Specialty Avionics Installer Oncology 08/19/19 Doc Gold MD [address] [place] [address] Ophthalmology 11/11/23 Aditya Chan [address] [place] [address] Ophthalmology 11/11/23 Rhonda Wasserman [address] [id number] Internal Medicine 11/11/23 Олег Kennedy MD [address] [facility] [place] [facility] [address] [place] [address] Allergy 11/11/23 Certified Performance Technologist Relationship Specialty Start Date End Date Katarina Medina MD PCP - General Internal Medicine 11/17/19 Meryl Jansen MD [address] [facility] [place] [address] Physician Radiation Oncology 04/13/18 Mandi Momin, MARISELA Specialty Avionics Installer Oncology 08/19/19 Doc Gold MD [address] [place] [address] Ophthalmology 11/11/23 Aditya Chan [address] [place] [address] Ophthalmology 11/11/23 Rhonda Wasserman [address] [facility] [address] [place] [phone] Internal Medicine 11/11/23 Олег Kennedy MD [address] [facility] [address] [place] [address] Allergy 11/11/23 Certified Performance Technologist Relationship Specialty Start Date End Date Katarina Medina MD PCP - General Internal Medicine 11/17/19 Meryl Jansen MD [address] [place] [address] Physician Radiation Oncology 04/13/18 Mandi Momin RN Specialty Avionics Installer Oncology 08/19/19 Certified Performance Technologist Relationship Specialty Start Date End Date Katarina Medina MD PCP - General Internal Medicine 11/17/19 Meryl Jansen MD [address] [facility] [place] [address] Physician Radiation Oncology 04/13/18 Mandi Momin RN Specialty Avionics Installer Oncology 08/19/19 Doc Gold MD [address] [place] [address] Ophthalmology 11/11/23 Aditya Chan [address] [place] [address] Ophthalmology 11/11/23 Rhonda Wasserman [address] [place] [address] Internal Medicine 11/11/23 Олег Kennedy MD [address] [facility] [place] [address] Allergy 11/11/23 Certified Performance Technologist Relationship Specialty Start Date End Date Katarina Medina MD PCP - General Internal Medicine 11/17/19 Meryl Jansen MD [address] [facility] [place] [address] Physician Radiation Oncology 04/13/18 Mandi Momin RN Specialty Avionics Installer Oncology 08/19/19 Doc Gold MD [address] [place] [address] Ophthalmology 11/11/23 Aditya Chan [address] [place] [address] Ophthalmology 11/11/23 Rhonda Wasserman [address] [place] [phone] Internal Medicine 11/11/23 Олег Kennedy MD [address] [facility] [place] [facility] [address] [place] [address] Allergy 11/11/23 Certified Performance Technologist Relationship Specialty Start Date End Date Katarina Medina MD PCP - General Internal Medicine 11/17/19 Meryl Jansen MD [address] [place] [address] Physician Radiation Oncology 04/13/18 Mandi Momin RN Specialty Avionics Installer Oncology 08/19/19 Doc Gold MD [address] [place] [address] Ophthalmology 11/11/23 Aditya Chan [address] [place] [address] Ophthalmology 11/11/23 Rhonda Wasserman [address] [facility] [address] [place] [phone] Internal Medicine 11/11/23 Олег Kennedy MD [address] [place] [address] Allergy 11/11/23 Certified Performance Technologist Relationship Specialty Start Date End Date Katarina Medina MD PCP - General Internal Medicine 11/17/19 Meryl Jansen MD [address] [place] [address] Physician Radiation Oncology 04/13/18 Mandi Momin RN Specialty Avionics Installer Oncology 08/19/19 Doc Gold MD [address] [place] [address] Ophthalmology 11/11/23 Aditya Chan [address] [place] [address] Ophthalmology 11/11/23 Rhonda Wasserman [address] [facility] [address] [place] [phone] Internal Medicine 11/11/23 Олег Kennedy MD [address] [facility] [address] [place] [address] Allergy 11/11/23 Certified Performance Technologist Relationship Specialty Start Date End Date Katarina Medina MD PCP - General Internal Medicine 11/17/19 Meryl Jansen MD [address] [place] [address] Physician Radiation Oncology 04/13/18 Mandi Momin RN Specialty Avionics Installer Oncology 08/19/19 Doc Gold MD [address] [place] [address] Ophthalmology 11/11/23 Aditya Chan [address] [place] [address] Ophthalmology 11/11/23 Rhonda Wasserman [address] [facility] [address] [place] [phone] Internal Medicine 11/11/23 Олег Kennedy MD [address] [place] [address] Allergy 11/11/23 Certified Performance Technologist Relationship Specialty Start Date End Date Katarina Medina MD PCP - General Internal Medicine 11/17/19 Meryl Jansen MD [address] [place] [address] Physician Radiation Oncology 04/13/18 Mandi Momin RN Specialty Avionics Installer Oncology 08/19/19 Doc Gold MD [address] [place] [address] Ophthalmology 11/11/23 Aditya Chan [address] [place] [address] Ophthalmology 11/11/23 Rhonda Wasserman [address] [address] Internal Medicine 11/11/23 Олег Kennedy MD [address] [address] [place], [place] [id number] Allergy 11/11/23 Certified Performance Technologist Relationship Specialty Start Date End Date Katarina Medina MD PCP - General Internal Medicine 11/17/19 Meryl Jansen MD [address] [place] [address] Physician Radiation Oncology 04/13/18 Mandi Momin, MARISELA Specialty Avionics Installer Oncology 08/19/19 Doc Gold MD [address] [place] [address] Ophthalmology 11/11/23 Aditya Chan [address] [place] [address] Ophthalmology 11/11/23 Rhonda Wasserman [address] [address] Internal Medicine 11/11/23 Олег Kennedy MD [address] [place] [address] Allergy 11/11/23 Team Status: Inactive Member Role [...] September 12, 2024 End: September 12, 2024 Certified Performance Technologist Relationship Specialty Start Date End Date Katarina Medina MD PCP - General Internal Medicine 11/17/19 Meryl Jansen MD [address] [facility] [place] [address] Physician Radiation Oncology 04/13/18 Mandi Momin RN Specialty Avionics Installer Oncology 08/19/19 Doc Gold MD [address] [place] [address] Ophthalmology 11/11/23 Aditya Chan [address] [place] [address] Ophthalmology 11/11/23 Rhonda Wasserman [address] [address] Internal Medicine 11/11/23 Олег Kennedy MD [address] [place] [address] Allergy 11/11/23 Certified Performance Technologist Relationship Specialty Start Date End Date Katarina Medina MD PCP - General Internal Medicine 11/17/19 Meryl Jansen MD [address] [place] [address] Physician Radiation Oncology 04/13/18 Mandi Momin, MARISELA Specialty Avionics Installer Oncology 08/19/19 Doc Gold MD [address] [place] [address] Ophthalmology 11/11/23 Aditya Chan [address] [place] [address] Ophthalmology 11/11/23 Rhonda Wasserman [address] [address] Internal Medicine 11/11/23 Олег Kennedy MD [address] [place] [address] Allergy 11/11/23 Team Status: Inactive Member Role/Relationship [...] 2024 End: October 18, 2024 Team Status: Active Member Role/Relationship Status Dates Dr. Katarina Medina MD Primary care physician Active Team Status: Inactive Member Role/Relationship Status Dates Dr. Katarina Medina MD Primary care physician Active Start: September 01, 2024 End: September 01, 2024 Dr. Katarina Medina MD Referring Provider Active Start: September 01, 2024 End: September 01, 2024 Moose REED PA Attending physician Active Start: September 01, 2024 End: September 01, 2024 Team Status: Inactive Member Role/Relationship Status Dates Dr. Katarina Medina MD Primary care physician Active Start: September 07, 2024 End: October 07, 2024 Dr. Pascual Fletcher DO Attending physician Active Start: September 07, 2024 End: October 07, 2024 Dr. Pascual Fletcher DO Referring Provider Active Start: September 07, 2024 End: October 07, 2024 Team Status: Inactive Member Role/Relationship Status Dates Dr. Katarina Medina MD Primary care physician Active Start: September 12, 2024 End: September 12, 2024 Dr. Nathanael Bowers DO Attending physician Active Start: September 12 End: September 12, 2024 Dr. Nathanael Bowers DO Emergency Department Physician Active Start: September 12, 2024 End: September 12, 2024 Team Status: Inactive Member Role/Relationship Status Dates Dr. Katarina Medina MD Primary care physician Active Start: September 15, 2024 End: September 15, 2024 Dr. Katarina Medina MD Attending physician Active Start: September 15, 2024 End: September 15, 2024 Team Status: Inactive Member Role/Relationship Status Dates Dr. Katarina Medina MD Primary care physician Active Start: October 18, 2024 End: October 18, 2024 Dr. Katarina Medina MD Referring Provider Active Start: October 18, 2024 End: October 18, 2024 DEREK Veras Attending physician Active Start: October 18, 2024 End: October 18, 2024 Team Status: Inactive Member Role/Relationship Status Dates Dr. Katarina Medina MD Primary care physician Active Start: October 18, 2024 End: October 18, 2024 DEREK Veras Attending physician Active Start: October 18, 2024 End: October 18, 2024 Team Status: Inactive Member Role/Relationship Status Dates Dr. Katarina Medina MD Primary care physician Active Start: December 01, 2024 End: December 01, 2024 Chico Enriquez MD Attending physician Active Sta rt: December 01, 2024 End: December 01, 2024 Chico Enriquez MD Emergency Department Physician Active Start: December 01, 2024 End: December 01, 2024 INFORMATION SOURCE (unrecogn ized section and content) DATE CREATED AUTHOR 10/30/2022 [facility] DATE CREATED AUTHOR AUTHOR'S ORGANIZ ATION 03/29/2024 [facility] DATE CREATED AUTHOR AUTHOR'S ORGANIZ ATION 12/30/2024 [facility] DATE CREATED AUTHOR AUTHOR'S ORGANIZ ATION 01/05/2025 [facility] FOR RECORDS PERTAINING TO PATIENTS WHO ARE [...] BE BASED ON THE PRIMARY CLINICAL RECORDS. [employer] provides no warranty or guarantee of the accuracy or completeness of information in this document.
--- NOTE | 2025-01-13 19:41 | ED.VIS.LOWEX ---
HPI History of Present Illness Chief Complaint: Lower Extremity Injury Narrative Narrative: 79-year-old female presents with her because of the left lower extremity/lateral calf tightness that she has had for the last month. She thinks that her left lower extremity is also more swollen than the other. She denies any chest pain or shortness of breath, no fevers or chills. She relates history that she had problems with her knee in the past and may have gone to occupational therapy. She now has been doing treadmill work. However, she is relates history that she noticed that her left lower extremity may be slightly larger than her right. She has tightness in the gastrocnemius area of her left lower extremity. She denies any exacerbating or alleviating factors, but they went to urgent care tonight. She and her were told that it was not thought that she has a cellulitis or infectious process, but she should come to the emergency department with concern for DVT of her left lower extremity. [facility] Medical History Left knee pain History of thyroid nodule Secondary polycythemia Oral allergy syndrome Upper respiratory infection Suspected COVID-19 virus infection Neuropathy Hives Temporal arteritis Ductal carcinoma in situ (DCIS) of breast Gallstones Thyroid nodule History of pneumonia as a child GERD (gastroesophageal reflux disease) Vegan diet Arthritis Acute urticaria Osteopenia Macular degeneration Hemochromatosis Glaucoma Cataract Asthma Allergic rhinitis Acid reflux Home Medications ?Medication ?Instructions ?Recorded ?Last Taken ?Type L.acidophilus-L.plantarum-B.animalis-B.longum 1 ea PO DAILY 04/26/14 03/09/16 History 2 billion cell capsule biotin 1 mg capsule 2,500 mcg PO QDAY 10/17/17 Unknown History Nattokinase 2,000 mg PO DAILY 12/05/20 Unknown History lutein 20 mg capsule 20 mg PO DAILY 06/10/22 Unknown History magnesium amino acid chelate 100 100 mg PO DAILY 12/09/22 Unknown History mg tablet phlebotomies for hemachromatosis See Rx Instructions IM .COMPLEX 12/09/22 Unknown History albuterol sulfate 90 mcg/actuation 2 puff inhalation Q4H PRN PRN 11/13/23 Unknown Rx aerosol inhaler Wheezing #8.5 grams quercetin 500 mg capsule mg PO 06/30/24 Unknown History Held on 09/12/24. Instructions: Conflicting Appointment tafluprost (PF) 0.0015 % eye drops 1 drp ophthalmic (eye) QHS 06/30/24 Unknown History in a dropperette diphenhydramine HCl 25 mg capsule 25 mg PO BID PRN PRN Allergies 12/27/24 Unknown History Allergy/AdvReac Type Severity Reaction Status Date / Time aspirin Allergy Mild unknown Verified 01/13/25 19:09 calcium carbonate (From Tums) Allergy Mild Other Verified 01/13/25 19:09 estradiol (From Vagifem) Allergy Mild unknown Verified 01/13/25 19:09 latanoprost (From Xalatan) Allergy Mild unknown Verified 01/13/25 19:09 miconazole (From Monistat 3) Allergy Mild burining, Verified 01/13/25 19:09 headache, nausea phenazopyridine Allergy Mild Other Verified 01/13/25 19:09 propoxyphene (From Darvon) Allergy Mild Other Verified 01/13/25 19:09 ranitidine (From Zantac) Allergy Mild unknown Verified 01/13/25 19:09 skin cleanser combination Allergy Mild burining, Verified 01/13/25 19:09 no.17 (From Monistat 3) headache, nausea tioconazole (From Monistat 1 Allergy Mild burning, Verified 01/13/25 19:09 (tioconazole)) headache, nausea amoxicillin Allergy Anaphylaxis Verified 01/13/25 19:09 ibuprofen (From Advil) Allergy Other Verified 01/13/25 19:09 indomethacin (From Indocin) Allergy Anaphylaxis Verified 01/13/25 19:09 indomethacin sodium (From Allergy Anaphylaxis Verified 01/13/25 19:09 Indocin) prednisolone Allergy Swelling Verified 01/13/25 19:09 Sulfa (Sulfonamide Allergy Anaphylaxis Verified 01/13/25 19:09 Antibiotics) barium sulfate AdvReac Rash Verified 01/13/25 19:09 nitrofurantoin AdvReac Other Verified 01/13/25 19:09 macrocrystalline (From Macrodantin) prednisone AdvReac Other Verified 01/13/25 19:09 progesterone AdvReac Other Verified 01/13/25 19:09 propoxyphene HCl (From AdvReac Other Verified 01/13/25 19:09 Darvon) Family History Sister Breast cancer Mother Diabetes Myocardial infarction, Onset Age: 69 Arthritis Liver disease Osteoporosis Father Myocardial infarction, Onset Age: 75 Brother Myocardial infarction, Onset Age: 44 Parkinsons Other Cancer Surgical History H/O laparoscopy History of lumpectomy of left breast History of cataract surgery History of cholecystectomy Social History Smoking Status: Never smoker alcohol intake: never substance use type: does not use what type of physical activity do you participate in: walking frequency: 3-4 times per week ROS ROS ED ROS Narrative Review of systems is positive for tightness in left calf of left lower extremity. No fevers or chills, no chest pain or shortness of breath. Patient thinks that her left lower extremity may be larger than her right. No exacerbating or alleviating factors. This has been known for the past month that she thought that her leg might be more swollen. No discoloration to left lower extremity. EXAM Physical Exam Narrative Exam Narrative: Afebrile. Vital signs noted. Nontoxic-appearing. Cardiovascular examination reveals regular rate and rhythm. Lungs are clear to auscultation bilaterally. Abdomen soft nontender with normoactive bowel sounds. Inspection of the left lower extremity reveals soft left gastrocnemius. She appears neurovascular intact distally. Full range of motion of left knee including extension and flexion. Palpable dorsalis pedis pulse. No erythema no overt pedal edema of left lower extremity, no palpable cord of calf. No overt appreciable swelling of the left lower extremity on initial examination. Const Vital Signs: 01/13/25 19:08 Temperature 97.9 F Temperature Source Temporal Pulse Rate 80 Respiratory Rate 16 Blood Pressure 177/59 H Blood Pressure Mean 98 Pulse Ox 100 Oxygen Delivery Method Room Air MDM MDM MDM Narrative Medical decision making narrative: Differential diagnosis includes but not limited to muscle strain versus DVT versus peripheral edema. I do not feel she needs laboratory work. I had a lengthy discussion with the patient and her . While clinically I have low suspicion for DVT, ultrasound will be obtained to rule out DVT. I reviewed the radiology report of the ultrasound of the left lower extremity and there is no evidence of a DVT. At this point in time, I do feel she can be discharged to follow-up with her primary care provider. Return instructions to the emergency department were reviewed. Disposition is discharged home, in stable condition. History & Record Review Discussion w/independent historian: Patient Radiography Diagnostic Testing: Clinical Impression(s) from Imaging Studies Venous Duplex 01/13/25 19:24 IMPRESSION: No DVT within the left lower extremity. Reading Location: [facility] Discharge Plan Triage Chief Complaint: Lower Extremity Injury ED Provider: Chico Enriquez Dx/Rx/DC Orders Prescriptions: No Action biotin 1 mg capsule 2,500 mcg PO QDAY phlebotomies for hemachromatosis See Rx Instructions IM .COMPLEX Patient Comments: once every 3 months Rx Instructions: intramuscularly q 3 months; lutein 20 mg capsule 20 mg PO DAILY Rx Instructions: give with meal/snack albuterol sulfate 90 mcg/actuation HFA aerosol inhaler 2 puff INHALATION Q4H PRN PRN (Reason: Wheezing) Qty: 8.5 3RF tafluprost (PF) 0.0015 % dropperette 1 drp ophthalmic (eye) QHS quercetin 500 mg capsule PO L.acidoph,plant-B.animal,long 1 EACH capsule 1 ea PO DAILY Patient Comments: enzymes Nattokinase tablet 2,000 mg PO DAILY Patient Comments: blood thinner. Rx Instructions: 1999 FU diphenhydramine HCl 25 mg capsule 25 mg PO BID PRN PRN (Reason: Allergies) Patient Comments: allegry magnesium amino acid chelate 100 mg tablet 100 mg PO DAILY Primary Care Provider: Kerry Medina Referrals: Kerry Medina MD [Primary Care Provider, Internal Medicine - [facility]] Print Language: Tamazight
[2025-01-13 20:39] VITALS: BP 169/68; PULSE 66; RESP 16; TEMP 36.6; O2SAT 97
== END 2025-01-13 20:40 | disposition home or self-care (01) ==
PROVIDERS: Emergency Provider Emergency Medicine; PCP Internal Medicine; Visit Provider Emergency Medicine
DX: M79.662 Pain in left lower leg (principal)
CPT/HCPCS: 93971; 99282

== ENCOUNTER 2025-01-16 19:10 | Emergency (ER) | payer MEDICARE, SELFPAY ==
[2025-01-16 19:10] VITALS: BP 212/74; PULSE 89; RESP 14; TEMP 36.6; O2SAT 98; BMI 25.7
[2025-01-16 19:41] VITALS: BP 203/63; PULSE 68; RESP 22; O2SAT 100
--- NOTE | 2025-01-16 20:08 | EKG12_ITS ---
Test Reason : CP Blood Pressure : */* mmHG Vent. Rate : 65 BPM Atrial Rate : 65 BPM P-R Int : 170 ms QRS Dur : 146 ms QT Int : 438 ms P-R-T Axes : 53 44 11 degrees QTcB Int : 455 ms Normal sinus rhythm Right bundle branch block Abnormal ECG Confirmed by Young Brush ([id number]), script editor SAMANTHA MCCLURE ([id number]) on 01/17/2025 10:29:07 AM Referred By: Confirmed By: Young Brush
--- NOTE | 2025-01-16 20:08 | RAD_ITS ---
PROCEDURE: CHEST 1 VIEW (PORTABLE) 01/16/2025 REASON FOR EXAM: CHEST PAIN TECHNIQUE: Frontal view of the chest. COMPARISON: 12/01/2024 FINDINGS: Lungs/Pleura: Clear. Heart/Mediastinum: Top-normal in size. Bones/Soft tissues: Mild degenerative changes of the spine. RAD/Chest 1 View (Portable) IMPRESSION: No evidence of acute cardiopulmonary disease. Reading Location: [id number]
[2025-01-16 20:10] VITALS: BP 178/58; PULSE 52; RESP 12; O2SAT 100
[2025-01-16 20:15] LABS: Hematocrit 43.5 % (37-47); Hemoglobin 14.8 g/dL (12.0-15.0); Immature Granulocytes Count 0.020 X10^3/uL (0.0-0.0); Mean Corp Hgb Conc 34.0 g/dL (32-36); Mean Corpuscular Volume 86.7 fL (81-99); Mean Platelet Vol. 10.0 fl (6.2-12.0); NRBC Flagged by Analyzer 0 % (0-5); Platelet Count 231 K/mm3 (150-450); RBC Distribution Width CV 13.2 % (11.6-14.6); RBC Distribution Width SD 41.4 fl (35.1-43.9); Red Blood Count 5.02 M/mm3 (4.2-5.4); White Blood Count 6.6 K/mm3 (4.4-11.0)
--- NOTE | 2025-01-16 20:15 | ED.VIS.CHEST ---
HPI History of Present Illness Chief Complaint: Chest Pain Informant: patient Onset/Context/Timing Onset: Month(s) (1) Activity at onset: gradual Timing: Continuous Quality: Positive for Dull Location: Left Parasternal, Left Chest and - (Left arm) Worsened By: Nothing Relieved By: - (Vitamin D) Associated Symptoms: Negative for Nausea, Vomiting, Diaphoresis, Dyspnea, Cough, Fever, Lightheadedness, Acid Reflux or Palpitations Narrative Narrative: Patient presents with left-sided chest pain and left arm and leg pain that has been getting worse over the past month. Patient states it is constant. Patient describes it as a dull ache. Patient states it feels similar to prior flareups of her polymyalgia rheumatica. Patient states she has not had a flareup of this in a long time. Patient states she has been taking vitamin D which has been helping. Patient denies any nausea or vomiting. Patient states she was evaluated for DVT which was negative. CVD Risk Factors: Negative for Hypertension, Diabetes, Hypercholesterolemia, Family History 1' </=55 or Smoking PE Risk Factors: Positive for Cancer; Negative for Recent Travel/Surgery, Recent Immobilization or Prior DVT or PE [facility] Medical History Left knee pain History of thyroid nodule Secondary polycythemia Oral allergy syndrome Upper respiratory infection Suspected COVID-19 virus infection Neuropathy Hives Temporal arteritis Ductal carcinoma in situ (DCIS) of breast Gallstones Thyroid nodule History of pneumonia as a child GERD (gastroesophageal reflux disease) Vegan diet Arthritis Acute urticaria Osteopenia Macular degeneration Hemochromatosis Glaucoma Cataract Asthma Allergic rhinitis Acid reflux Home Medications ?Medication ?Instructions ?Recorded ?Last Taken ?Type L.acidophilus-L.plantarum-B.animalis-B.longum 1 ea PO DAILY 04/26/14 03/09/16 History 2 billion cell capsule biotin 1 mg capsule 2,500 mcg PO QDAY 10/17/17 Unknown History Nattokinase 2,000 mg PO DAILY 12/05/20 Unknown History lutein 20 mg capsule 20 mg PO DAILY 06/10/22 Unknown History magnesium amino acid chelate 100 100 mg PO DAILY 12/09/22 Unknown History mg tablet phlebotomies for hemachromatosis See Rx Instructions IM .COMPLEX 12/09/22 Unknown History albuterol sulfate 90 mcg/actuation 2 puff inhalation Q4H PRN PRN 11/13/23 Unknown Rx aerosol inhaler Wheezing #8.5 grams quercetin 500 mg capsule mg PO 06/30/24 Unknown History Held on 09/12/24. Instructions: Conflicting Appointment tafluprost (PF) 0.0015 % eye drops 1 drp ophthalmic (eye) QHS 06/30/24 Unknown History in a dropperette diphenhydramine HCl 25 mg capsule 25 mg PO BID PRN PRN Allergies 12/27/24 Unknown History dexamethasone 0.5 mg tablet 0.5 mg PO DAILY #10 tabs 01/16/25 Unknown Rx Allergy/AdvReac Type Severity Reaction Status Date / Time aspirin Allergy Mild unknown Verified 01/16/25 19:11 calcium carbonate (From Tums) Allergy Mild Other Verified 01/16/25 19:11 estradiol (From Vagifem) Allergy Mild unknown Verified 01/16/25 19:11 latanoprost (From Xalatan) Allergy Mild unknown Verified 01/16/25 19:11 miconazole (From Monistat 3) Allergy Mild burining, Verified 01/16/25 19:11 headache, nausea phenazopyridine Allergy Mild Other Verified 01/16/25 19:11 propoxyphene (From Darvon) Allergy Mild Other Verified 01/16/25 19:11 ranitidine (From Zantac) Allergy Mild unknown Verified 01/16/25 19:11 skin cleanser combination Allergy Mild burining, Verified 01/16/25 19:11 no.17 (From Monistat 3) headache, nausea tioconazole (From Monistat 1 Allergy Mild burning, Verified 01/16/25 19:11 (tioconazole)) headache, nausea amoxicillin Allergy Anaphylaxis Verified 01/16/25 19:11 ibuprofen (From Advil) Allergy Other Verified 01/16/25 19:11 indomethacin (From Indocin) Allergy Anaphylaxis Verified 01/16/25 19:11 indomethacin sodium (From Allergy Anaphylaxis Verified 01/16/25 19:11 Indocin) prednisolone Allergy Swelling Verified 01/16/25 19:11 Sulfa (Sulfonamide Allergy Anaphylaxis Verified 01/16/25 19:11 Antibiotics) barium sulfate AdvReac Rash Verified 01/16/25 19:11 nitrofurantoin AdvReac Other Verified 01/16/25 19:11 macrocrystalline (From Macrodantin) prednisone AdvReac Other Verified 01/16/25 19:11 progesterone AdvReac Other Verified 01/16/25 19:11 propoxyphene HCl (From AdvReac Other Verified 01/16/25 19:11 Darvon) Family History Sister Breast cancer Mother Diabetes Myocardial infarction, Onset Age: 69 Arthritis Liver disease Osteoporosis Father Myocardial infarction, Onset Age: 75 Brother Myocardial infarction, Onset Age: 44 Parkinsons Other Cancer Surgical History H/O laparoscopy History of lumpectomy of left breast History of cataract surgery History of cholecystectomy Social History Smoking Status: Never smoker alcohol intake: never substance use type: does not use what type of physical activity do you participate in: walking frequency: 3-4 times per week ROS ROS ED Constitutional Constitutional ED: Denies chills or fever(s) Eyes Eyes: Denies blurry vision or change in vision ENT ENT ED: Denies rhinorrhea or sore throat Cardiovascular Cardiovascular: Reports chest pain; Denies palpitations Respiratory/Chest Respiratory/Chest: Denies cough or dyspnea Gastrointestinal Gastrointestinal: Denies nausea or vomiting Genitourinary Genitourinary ED: Denies dysuria or hematuria Musculoskeletal Musculoskeletal: Denies back pain or neck pain Integumentary Denies abscess or rash Neurologic Neurologic: Denies headache(s) or weakness Allergic/Immunologic Allergic/Immunologic ED: Denies mouth swelling or urticaria EXAM Physical Exam Const Vital Signs: 01/16/25 19:10 01/16/25 19:41 01/16/25 20:10 Temperature 98 F Temperature Source Temporal Pulse Rate 89 68 52 L Respiratory Rate 14 22 H 12 Blood Pressure 212/74 H 203/63 H 178/58 H Blood Pressure Mean 120 109 98 Pulse Ox 98 100 100 Oxygen Delivery Method Room Air 01/16/25 20:59 01/16/25 21:13 01/16/25 22:23 Temperature Temperature Source Pulse Rate 53 L 81 Respiratory Rate 14 16 Blood Pressure 156/49 H Blood Pressure Mean 84 Pulse Ox 100 99 Oxygen Delivery Method Room Air Room Air 01/16/25 22:48 Temperature 98.1 F Temperature Source Pulse Rate 60 Respiratory Rate 18 Blood Pressure 172/59 H Blood Pressure Mean 96 Pulse Ox 98 Oxygen Delivery Method Positive well nourished and well developed Constitutional Narrative: BMI is 27. General Appearance ED: well developed and NAD HEENT Reports moist mucous membranes HEENT Narrative: There is no tenderness over the temporal artery. normocephalic and atraumatic Neck supple and no JVD Resp normal respiratory effort and clear to auscultation bilaterally Cardio regular rate and regular rhythm GI soft to palpation, non-tender and non-distended Extremity normal to inspection Neuro oriented x3, CN's II-XII intact bilaterally and no sensory deficits noted Sensorium / Orientation: awake and alert Motor Exam: strength 5/5 throughout Psych mental status grossly normal Heart Score History: Slightly/Non-Suspicious ECG: Normal Age: >/= 65 years Risk Factors: No Risk Factors Troponin: </= Normal Limit Score: 2 MDM MDM MDM Narrative Medical decision making narrative: Differential diagnose includes cardiac dysrhythmia, cardiac ischemia, pneumonia, bronchitis, musculoskeletal pain, polymyalgia rheumatica, dehydration, electrolyte abnormality, and anxiety. EKG will be obtained to assess for cardiac dysrhythmia and cardiac ischemia. Chest x-ray will be obtained to assess for pneumonia and bronchitis. CBC will be obtained to assess for leukocytosis and anemia. Basic metabolic profile will be obtained to assess for electrolyte abnormality renal function. High-sensitivity troponin will be obtained to assess for cardiac ischemia. 2-hour repeat high-sensitivity troponin will be obtained to assess for ongoing cardiac ischemia. History & Record Review Additional record(s) reviewed:: Prior outpatient record, Prior ED visit and Prior labs Lab Data Attestation: I reviewed the patient's lab results. Lab results narrative: CBC was reviewed and was within normal limits. Basic metabolic profile was reviewed and was within normal limits. High-sensitivity troponin was reviewed and was normal at 11. 2-hour repeat high-sensitivity troponin was reviewed and was also 11. Labs: Laboratory Results - last 24 hr 01/16/25 01/16/25 19:30 21:23 WBC 6.6 RBC 5.02 Hgb 14.8 Hct 43.5 MCV 86.7 MCH 29.5 MCHC 34.0 RDW Std Deviation 41.4 RDW Coeff of Nicole 13.2 Plt Count 231 MPV 10.0 Immature Gran % (Auto) 0.300 Neut % (Auto) 52.9 Lymph % (Auto) 35.7 [place] % (Auto) 7.6 Eos % (Auto) 2.1 Baso % (Auto) 1.4 H Absolute Neuts (auto) 3.5 Absolute Lymphs (auto) 2.34 Nucleated RBC % 0 Sodium 139 Potassium 3.8 Chloride 103 Carbon Dioxide 25.4 Anion Gap 10 BUN 13 Creatinine 0.75 Estim Creat Clear Calc 55.11 Est GFR (MDRD) Non-Af 81 BUN/Creatinine Ratio 17.1 Glucose 97 Calcium 10.1 Troponin T High Sens 11 D Troponin T Hi Sens 2 Hr 11 Radiography Chest X-Ray - ED: 1 View, Read by ED Physician, Read by Radiologist and No Acute Disease Diagnostic Testing: Clinical Impression(s) from Imaging Studies Chest X-Ray 01/16/25 20:08 IMPRESSION: No evidence of acute cardiopulmonary disease. Reading Location: [facility] Portable 1 view chest x-ray was obtained. On my independent interpretation, lung hunt are clear. There is normal cardiac silhouette. Bony thorax is normal. There is no acute process noted. Radiologist also interpreted the x-ray and agrees. EKG Initial EKG: Comments: EKG was obtained. On my independent interpretation, it showed a normal sinus rhythm with a rate of 65. NM interval was normal at 170 ms. QRS interval was slightly prolonged at 146 ms. QTc interval was normal at 455 ms. [place] was normal. There is a right bundle branch block pattern noted. There are no acute ST or T wave changes. Prior EKG tracings: available for review Prior: Unchanged (12/01/2024) Treatment and Re-Evaluation :: Patient is ordered sublingual nitroglycerin but she did not want to take this. Patient is feeling better on reevaluation. Patient was advised of her findings. Patient has a HEART score of 2. Patient is at low risk for acute cardiac event. Patient was given a prescription for dexamethasone. Patient was instructed to take this until she follows up with her primary care physician. Patient was instructed to return if worse in any way. Patient understood and was agreeable with the plan. All questions were answered. Discharge Plan Triage Chief Complaint: Chest Pain ED Provider: Jem Ye Dx/Rx/DC Orders Clinical Impression: Chest pain, Polymyalgia rheumatica Instructions: ED Chest Pain, Uncertain Cause Prescriptions: New dexamethasone 0.5 mg tablet 0.5 mg PO DAILY Qty: 10 0RF No Action biotin 1 mg capsule 2,500 mcg PO QDAY phlebotomies for hemachromatosis See Rx Instructions IM .COMPLEX Patient Comments: once every 3 months Rx Instructions: intramuscularly q 3 months; lutein 20 mg capsule 20 mg PO DAILY Rx Instructions: give with meal/snack albuterol sulfate 90 mcg/actuation HFA aerosol inhaler 2 puff INHALATION Q4H PRN PRN (Reason: Wheezing) Qty: 8.5 3RF tafluprost (PF) 0.0015 % dropperette 1 drp ophthalmic (eye) QHS quercetin 500 mg capsule PO L.acidoph,plant-B.animal,long 1 EACH capsule 1 ea PO DAILY Patient Comments: enzymes Nattokinase tablet 2,000 mg PO DAILY Patient Comments: blood thinner. Rx Instructions: 1999 FU diphenhydramine HCl 25 mg capsule 25 mg PO BID PRN PRN (Reason: Allergies) Patient Comments: allegry magnesium amino acid chelate 100 mg tablet 100 mg PO DAILY Primary Care Provider: Kerry Medina Referrals: Kerry Medina MD [Primary Care Provider, Internal Medicine - [facility]] - 3-5 Days Print Language: Georgian Disposition Disposition: Home, Self Care Discharge Date/Time: 01/16/25 22:53
--- OUTSIDE RECORDS SUMMARY | 2025-01-16 20:28 | XMS RPT_ITS | CCD ---
Author Organization [facility] Care Team Providers Care Metallurgy Teacher Name Role Phone Dr. Katarina Medina Primary [...] Provider Dr. Katarina Medina Attending Provider [phone] Laurence Billingsley Attending Provider Dr. Katarina Medina Referring Provider [phone] Seamus Turk Attending Provider Katarina Medina MD Primary Care Provider Jaiden Real MD, Doc Unavailable Aditya Chan Unavailable Rhonda Wasserman Unavailable Brent DE LA ROSA, Олег Randhawa Unavailable CHANDA DE LA ROSA, JOSHUA Das Primary Care Physician CHANDA DE LA ROSA, JOSHUA Das Primary Care Unavail able SHEILA CHAN MD Attending Unavail able Dr. Katarina Medina MD Primary Care Provider [phone] Dr. Katarina Medina MD Attending Provider Dr. Katarina Medina MD Referring Provider Dr. Pascual Fletcher DO Attending Provider Dr. Pascual Fletcher DO Referring Provider Moose Calvert Attending Provider [phone] Dr. Nathanael Bowers DO Emergency Provider [facility], Dr. Huffman Attending Provider Adam DE LA ROSA, Dr. Payne Primary Care Physician Adam DE LA ROSA, Dr. Payne Referring Provider Moose Calvert Attending Physician Chance MESA, Dr. Garner Attending Physician Chance MESA, Dr. Garner Referring Provider [facility] , Dr. Huffman Attending Physician [facility], Dr. Huffman [facility] Adam DE LA ROSA, Dr. Payne Attending Physician Zoe DE LA ROSA, [place] Attending Physician Zoe DE LA ROSA, [place] Emergency Department Physician KATARINA MEDINA Primary Care Unavailable ADAM, KATARINA M Primary [...] Care Unavailable MASCI, LUIS A Referring Unavailable KASIE, SIDONIE Referring Unavailable ADAM, KATARINA M Primary Care Unavailable AIRAM ALVARADO Attending Unavailable ADAM, KATARINA M Primary Care Unavailable IBRIKJI, SIDONIE Attending Unavailable MASCI, LUIS A Referring Unavailable ADAM, KATARINA M Primary Care Unavailable ADAM, KATARINA M Primary Care Unavailable ADAM, KATARINA M Primary Care Unavailable MASCI, LUIS A Referring Unavailable ADAM, KATARINA M Primary Care Unavailable ADAM, KATARINA M Primary Care Unavailable ADITYA CHAN Referring Unavailable JACQUELINE GRIFFITHS Attending Unavailabl e KATARINA MEDINA M Primary Care Unavailable ADAM, KATARINA M Primary Care Unavailable ASAF, LUIS A Referring Unavailable Adam DE LA ROSA, Dr. Payne Primary Care Physician Adam DE LA ROSA, Dr. Payne Attending Physician [phone] Adam DE LA ROSA, Dr. Payne Referring Provider Moose Calvert Attending Physician [phone] [place] Enriquez MD Attending Physician [place] Enriquez MD Emergency Department Physician Alan Reyes Attending Physician Moose Calvert Attending Unavailable Adam, Katarina Referring [...] Attending Unavailable Adam, Katarina Primary Care Unavailable Reodica [place] Attending Unavailable Adam, Katarina Primary Care Unavailable Reodica [place] Attending Unavailable Adam, Katarina Primary Care Unavailable Nathanael Bowers Attending Unavailabl e Adam, Katarina Primary Care Unavailable Allergies Allergy Classification Reported Allergen(s) Allergy Type Date of Onset Reaction(s) Facility (20 sources) Amoxicillin; Translations: [AMOXICILLIN] Drug Allergy 11-23-19 05 Intolerance [facility] Work Phone: [phone] (20 sources) Aspirin; Translations: [ASPIRIN] Drug Allergy 07-14-19 09 unknown [facility] (20 sources) Calcium Carbonate; Translations: [CALCIUM CARBONATE] Drug Allergy 01-11-20 09 unknown, Other [facility] Comment on above: skin reaction (20 sources) Estradiol; Translations: [ESTRADIOL] Drug Allergy 04-19-19 06 unknown [facility] Work Phone: [phone] (20 sources) Ibuprofen; Translations: [IBUPROFEN] Drug Allergy 11-23-19 05 Intolerance [facility] (17 sources) Indomethacin Drug Allergy 05-29-19 22 Anaphylaxis [facility] (20 sources) Indomethacin; Translations: [INDOMETHACIN SODIUM] Drug Allergy 11-23-19 05 Intolerance [facility] Work Phone: [phone] (20 sources) latanoprost; Translations: [LATANOPROST] Drug Allergy 04-19-19 06 Shortness of Breath [facility] Work Phone: [phone] (20 sources) Miconazole; Translations: [MICONAZOLE] Drug Allergy 02-05-20 05 Intolerance [facility] Work Phone: [phone] (20 sources) prednisoLONE; Translations: [PREDNISOLONE] Drug Allergy 02-16-20 14 Swelling [facility] (20 sources) predniSONE; Translations: [PREDNISONE] Drug Allergy 11-23-19 05 Other [facility] Work Phone: [phone] (20 sources) Progesterone; Translations: [PROGESTERONE] Drug Allergy 11-23-19 05 Other [facility] Work Phone: [phone] (20 sources) Propoxyphene; Translations: [PROPOXYPHENE HCL] Drug Allergy 11-23-19 05 Mental Status Change [facility] Work Phone: [phone] (17 sources) raNITIdine Drug Allergy 05-29-19 22 unknown [facility] (20 sources) Sulfonamides (Antibiotic); Translations: [SULFA (SULFONAMIDE ANTIBIOTICS)] Allergy to substance 11-23-19 05 Anaphylaxis [facility] Work Phone: [phone] (20 sources) tioconazole; Translations: [TIOCONAZOLE] Drug Allergy 11-23-19 05 burning, headache, nausea [facility] Work Phone: [phone] (18 sources) skin cleanser combination no.17; Translations: [skin cleanser combination no.17] Allergy to substance 05-29-19 burining, headache, nausea [facility] (18 sources) nitrofurantoin macrocrystalline; Translations: [nitrofurantoin macrocrystalline] Propensity to adverse reactions 05-29-19 Other [facility] (2 sources) BARIUM DRINK Propensity to adverse reactions 12-06-19 Rash [facility] Work Phone: [phone] (2 sources) MONOSTAT Propensity to adverse reactions 12-06-19 Other [facility] Work Phone: [phone] (5 sources) PSORIASIS LOTION Propensity to adverse reactions 12-06-19 [facility] Work Phone: [phone] (20 sources) Nitrofurantoin; Translations: [NITROFURANTOIN] Drug Allergy 11-23-19 05 [facility] Work Phone: (20 sources) Phenazopyridine; Translations: [PHENAZOPYRIDINE HCL] Drug Allergy 12-25-19 05 Intolerance [facility] Work Phone: (20 sources) raNITIdine; Translations: [RANITIDINE HCL] Drug Allergy 03-25-19 08 [facility] Work Phone: (20 sources) Barium Iodide; Translations: [BARIUM IODIDE] Propensity to adverse reactions 11-23-19 05 [facility] Work Phone: (20 sources) psoriosis lotion [Other] Propensity to adverse reactions 11-23-19 05 [facility] Work Phone: (20 sources) Barium Sulfate; Translations: [BARIUM SULFATE] Drug Allergy 11-01-19 [facility] (20 sources) sunflower seed extract; Translations: [SUNFLOWER SEED] Drug Allergy 12-22-19 23 [facility] (20 sources) Tree and shrub pollen; Translations: [TREE AND SHRUB POLLEN] Drug Allergy 01-15-20 23 Other: See Comments [facility] (11 sources) Phenazopyridine Drug Allergy 01-26-20 Other [facility] Comment on above: intolerance (11 sources) Propoxyphene Drug Allergy 01-26-20 Other [facility] Comment on above: mental status change blacked out with postural changes (1 source) OTHER; Translations: [OTHER] Propensity to adverse reactions (disorder) 11-23-19 [facility] (1 source) Amoxicillin Drug Allergy 01-14-20 [facility] (1 source) Aspirin Drug Allergy 01-14-20 [facility] (1 source) Barium sulfate Drug allergy (disorder) 01-14-20 [facility] (1 source) Estradiol Drug Allergy 01-14-20 [facility] (1 source) Ibuprofen Drug Allergy 01-14-20 [facility] (1 source) Indomethacin Drug Allergy 01-14-20 [facility] (1 source) latanoprost Drug Allergy 01-14-20 [facility] (1 source) Miconazole Drug Allergy 01-14-20 [facility] (1 source) Phenazopyridine Drug Allergy 01-14-20 [facility] (1 source) prednisoLONE Drug Allergy 01-14-20 [facility] (1 source) predniSONE Drug Allergy 01-14-20 [facility] (1 source) Progesterone Drug Allergy 01-14-20 [facility] (1 source) Propoxyphene Drug Allergy 01-14-20 [facility] (1 source) raNITIdine Drug Allergy 01-14-20 [facility] (1 source) tioconazole Drug Allergy 01-14-20 [facility] Medications Current Medications Medication Drug Class(es) Dates Sig (Normalized) Sig (Original) Bacillus coagulans / Inulin (20 sources) take 1 capsule by mo uth once daily Bacillus coagulans/inulin (PROBIOTIC WITH PREBIOTIC ORAL) Take 1 capsule by mouth once daily. Active take 1 capsule by mouth once romi ly Bacillus coagulans/inulin (PROBIOTIC WITH PREBIOTIC ORAL) Take 1 capsule by mouth once daily. 0 Active Comment on above: Take 1 capsule by mo ut once daily. benoxinate hydrochloride 4 mg/ml / fluorescein sodium 3 mg/ml ophthalmic solution (2 sources) Diagnostic Dye Start: 06-16-2024 End: 06-16-2024 fluorescein-benoxi vipul 0.3-0.4 % 1 drop (FLURESS) Start: 06-16-2024 End: 06-16-2024 1 drop, BOTH EYES, DIRECT ED, Starting on Fri06/16/24 at 0800, Until Fri06/16/24 at 1959, Administer for applanation tonometry. In the event of a Fluress shortage, administer Hayes-Fluor 1 drop into both eyes as directed [...] Comment on above: Take 2,500 mg by brett th once daily. cholecalciferol, vitamin D3, (VITAMIN D3 PO) (1 source) take 1 tablet by mouth once daily as needed cholecalciferol, vitamin D3, (VITAMIN D3 PO) Take 1 tablet by mouth once daily as needed. Active diphenhydrAMINE hydrochloride 25 mg oral capsule (18 sources) Histamine-1 Receptor Antagonist Start: 015 End: 025 take 1 capsule by mouth twice daily as needed doxycycline monohydrate 100 mg oral tablet (1 source) Tetracycline-class Drug Start: 023 End: 023 take 1 tablet by mouth twice daily doxycycline monohydrate 100 mg tablet Take 1 tablet by mouth twice daily for 5 days. 10 tablet 0 07/15/2022 07/20/2022 Active Comment on above: Take 1 tablet by brett twice daily for 5 days. [id number] 0.3 ml EPINEPHrine 1 mg/ml auto-injector (5 sources) alpha-Adrenergic Agonist, beta-Adrenergic Agonist, Catecholamine Start: 025 EPINEPHrine (EPIPEN) 0.3 mg/0.3 mL auto-injector Inject 0.3 mg intramuscularly as needed. 04/22/2024 Active MattAcidrodney,Plant-B.Anim Charles herbert (8 sources) Start: 015 Marquise,Plant-B.Anim al,Long Active 1 EACH PO DAILY April 26, 2014 5:16pm Start: 04-26-2014 Marquise,Plan t-B.Animal,Long Active 1 EACH PO DAILY April 26, 2014 12:00am Start: 04-26-2014 Marquise,Plan t-B.Animal,Long Active 1 EACH PO DAILY April 26, 2014 1:00am MarquisePlant-B.Animal,Reinier g 1 EACH capsule (9 sources) Start: 04-26-2014 take 1 capsule by mouth once daily Start: 04-26-2014 take 1 capsule by mo uth once daily Start: 04-26-2014 take 1 capsule by mo uth once daily MarquisePlant-B.Animal,Long 1 EACH capsule Active 1 NMA PO [...] 1 capsule by mo uth once daily Lutein Active 1 CAP PO DAILY April 26, 2014 5:16pm Start: 04-26-2014 End: 08-02-2021 Lutein capsule Discontinued 1 NMA PO DAILY April 26, 2014 12:00am August 02, 2021 12:34pm Start: 04-26-2014 End: 08-02-2021 Lutein capsule Discontinued [...] 2021 1:34pm take 1 tablet by brett th once daily lutein 10 mg tab Take [...] 200 mg PO DAILY March 09, 2018 12:00am December 09, 2022 7:05am Start: 03-09-2018 End: 12-09-2022 take 200 mg by mouth once daily Magnesium Amino Acid Chelate Discontinued 200 MG PO DAILY March 09, 2018 1:00am December 09, 2022 8:05am nattokinase (20 sources) Start: 12-05-2020 take 1 tablet by mouth once da paul Start: 12-05-2020 take 1 tablet by brett th once daily Start: 12-05-2020 take 1 tablet by brett [...] 100 mg PO DAILY April 26, 2014 12:00am December 05, 2020 7:21am OTC PRODUCT (20 sources) Start: 04-09-2013 take 1 tablet by brett th twice daily, then take 1 tablet by mouth once daily OTC PRODUCT Take 100 mg by mouth twice daily. Nattokinase 100mg: Take one(1) tablet daily. 0 04/09/2013 Active OTC PRODUCT [place]- r/t [facility] study Active End: 11-11-2023 OTC PRODUCT 250 mg once eliana y. Quercetin 11/11/2023 Discontinued OTC PRODUCT [place] le[place]- r/t [facility] study 0 Active OTC PRODUCT 250 mg once daily. Quercetin 0 Active Comment on above: Take 100 mg by mouth twice daily. Nattokinase 100mg: Take one(1) tablet daily. [place]- r/t [facility] study 250 mg once daily. Q [...] osis (20 sources) Start: 12-09-2022 Start: 12-09-2022 Start: 12-09-2022 phlebotomies f or [...] for hemachromat osis Discontinued IM 0 November 10, 2019 11:00pm December 09, 2022 7:05am Start: 11-11-2019 End: 12-09-2022 phlebotomies for hemachromat [...] 500 mg capsule Discontinued mg PO June 09, 2022 11:00pm December 09, 2022 7:05am Start: 06-10-2022 End: 12-09-2022 Quercetin Discontinued MG PO June 10, 2022 12:00am December 09, 2022 8:05am Start: 06-10-2022 End: 12-09-2022 Quercetin Discontinued MG PO June 09, 2022 11:00pm December 09, 2022 7:05am take 1 tablet by brett th once daily as needed quercetin 500 mg cap Take 1 tablet by mouth once daily as needed. Active [place] Extract-Quercetin (7 sources) Start: 08-02-2021 [place] Extr act-Quercetin Active TABLET PO August 02, 2021 1:35pm Start: 08-02-2021 End: 12-20-2021 [place] Extract-Quercetin Discontinued TABLET PO August 01, 2021 11:00pm December 20, 2021 9:05am Start: 08-02-2021 End: 12-20-2021 [place] Extract-Quercetin Discontinued TABLET PO August 02, 2021 12:00am December 20, 2021 10:05am Start: 08-02-2021 [place] Extr act-Quercetin Active TABLET PO August 02, 2021 12:00am soybean, fermented (NATTOKINASE ORAL) (7 sources) soybean, ferment ed (NATTOKINASE ORAL) Take 1-2 tablets by mouth once daily. 2,000 fu Active tafluprost 0.015 mg/ml ophthalmic solution (7 sources) Prostaglandin Analog Start: 06-30-2024 Start: 06-16-2024 tafluprost, PF , (ZIOPTAN) 0.0015 % ophthalmic solution dropperette Use 1 drop in eyes daily at bedtime. 30 each 06/16/2024 Active Tafluprost (Pf) 0.0015 % dropperette [...] Drug Class(es) Dates Sig (Normalized) Sig (Original) [id number] 200 actuat albuterol 0.09 mg/actuat metered dose [...] NEEDED as needed for Wheezing 8.5 3 June 10, 2022 8:10am November 13, 2023 10:35am Start: 07-18-2014 End: 06-10-2022 take 1 puff(s) [...] Sulfate 1 PUFF inhaler (7 sources) Start: 07-19-19 End: 06-11-19 23 Albuterol Sulfate 1 PUFF inhaler Discontinued 2 NMA INHALATION EVERY 4 HOURS NEEDED as needed for Wheezing July 18, 2014 12:00am June 10, 2022 9:10am amLODIPine 5 mg oral tablet (17 sources) Dihydropyridine Calcium Channel [place] Start: 04-27-19 End: 08-03-19 take 1 tablet by mouth once daily Amlodipine 5 mg tablet Discontinued 5 mg PO DAILY April 27, 2020 12:00am August 02, 2021 12:32pm azithromycin 250 mg oral tablet (15 sources) Macrolide Antimicrobial Start: 09-02-19 End: 12-28-19 Azithromycin 250 mg tablet Discontinued 250 mg PO .COMPLEX 12 0 September 07, 2024 9:39am December 27, 2024 1:21pm 2 tablets (500 mg) on day 1, then 1 tablet daily on days 2 through 11 cephalexin 500 mg oral capsule (16 sources) Cephalosporin Antibacterial Start: 10-19-19 End: 12-28-19 take 1 capsule by mouth three times daily Cephalexin 500 mg capsule Discontinued 500 mg PO THREE TIMES A DAY 15 October 17, 2024 11:00pm December 27, 2024 1:22pm Start: 01-25-2023 End: 05-28-2023 take 1 capsule by mouth three times daily Cephalexin 500 mg capsule Discontinued 500 mg PO THREE TIMES A DAY January 25, 2023 12:00am May 28, 2023 9:29am Start: 12-15-2022 End: 12-22-2022 take 1 capsule by mouth twice daily cephALEXin (KEFLEX) 500 mg capsule Indications: Recurrent UTI (urinary tract infection) Take 1 capsule by mouth two times a day for 7 days. 14 capsule 0 12/15/2022 12/22/2022 Active Comment on above: Take [address] [facility] two times a day for 7 days. cholecalciferol 0.125 mg oral capsule (20 sources) Vitamin D Start: 12-21-19 End: 07-01-19 take 1 capsule by mouth once daily Cholecalciferol (Vitamin D3) 125 mcg (5,000 unit) capsule Discontinued 60985 U PO DAILY December 20, 2021 9:05am June 30, 2024 1:30pm Start: 01-15-2016 End: 05-27-2024 take 1 capsule by mouth once daily Cholecalciferol (Vitamin D3) 5,000 UNIT capsule Discontinued 5000 U PO DAILY March 10, 2016 12:00am December 20, 2021 9:06am Comment on above: Take 1 capsule by mo ut once daily. cholecalciferol, vitamin D3, (VITAMIN D3 ORAL) (1 source) cholecalciferol, vitamin D3, (VITAMIN D3 ORAL) Take 5,000 Int'l Units/day by mouth once daily. Discontinued clindamycin 300 mg oral capsule (15 sources) Lincosamide Antibacterial Start: 11-01-19 End: 06-11-19 take 1 capsule by mouth every six hours Clindamycin Hcl (Cleocin Hcl) 300 mg capsule Discontinued 300 mg PO EVERY 6 HOURS October 30, 2021 11:00pm June 10, 2022 8:05am dexamethasone 1.5 mg oral tablet (17 sources) Corticosteroid Start: 03-13-19 17 End: 10-18-19 18 take 2 tablets by mouth three times daily Dexamethasone 1.5 MG tablet Discontinued 3 mg PO THREE TIMES A DAY 180 0 March 13, 2016 12:00am October 17, 2017 6:19am Start: 03-13-2016 End: 10-17-2017 take 3 mg by mouth three times daily Dexamethasone Discontinued 3 MG PO THREE TIMES A DAY 180 March 13, 2016 1:00am October 17, 2017 7:19am Lactobacillus acidophilus (7 sources) End: 10-12-2024 Lactobacillus acidophilus (P ROBIOTIC ORAL) Take by mouth once daily. 10/12/2024 Discontinued Lactobacillus ac idophilus (PROBIOTIC ORAL) Take by mouth once daily. Active [place] Extract-Quercetin 500-250 mg tablet (9 sources) Start: 08-02-2021 End: 12-20-2021 [place] Extract-Quercetin 500-250 mg tablet Discontinued {tbl} PO August 01, 2021 11:00pm December 20, 2021 9:05am Start: 08-02-2021 End: 12-20-2021 [place] Extract-Quercetin 500-250 mg tablet Discontinued {tbl} [...] 9 5 % powder Discontinued NMA May 27, 2021 11:00pm August 02, 2021 12:34pm Start: 05-28-2021 End: 08-02-2021 Turmeric (Bulk) (Curcumin) 9 5 % powder Discontinued CTA May 28, 2021 12:00am August 02, 2021 [...] Comment on above: Take by mouth. Zinc (17 sources) Start: 05-28-2021 End: 08-02-2021 take 50 [...] tablet Discontinued 50 mg PO DAILY May 27, 2021 11:00pm August 02, 2021 12:34pm Start: 05-28-2021 End: 08-02-2021 take 1 tablet [...] Date Documented Da te Episodic/Chronic Abdominal pain (12 sources) Upper abdominal pain; Translations: [Upper abdominal pain, unspecified] 01-28-2022 Episodic Acute bronchitis (17 sources) Acute bronchitis; Translations: [Acute bronchitis, unspecified] 03-12-2018 Episodic Acute cerebrovascular disease (2 sources) Silent cerebral infarct; Translations: [Cerebral infarction, unspecified] Onset: 04-19-2024 Chronic Allergic reactions (20 sources) Acute urticaria; Translations: [Other urticaria] Onset: 8 03-25-2007 Episodic Anxiety disorders (20 sources) Anxiety state; Translations: [Generalized anxiety disorder] Onset: 5 02-22-2015 Chronic Asthma (20 sources) Asthma; Translations: [Unspecified asthma, uncomplicated] Onset: 8 01-15-2016 Chronic Biliary tract disease (17 sources) Gallstone; Translations: [Calculus of gallbladder without cholecystitis without obstruction] 11-11-2019 Episodic Blindness and vision defects (19 sources) Eye / vision finding; Translations: [Unspecified visual disturbance] 03-12-2018 Episodic Cancer of breast (20 sources) Intraductal carcinoma in situ of breast; Translations: [Intraductal carcinoma in situ of unspecified breast] Onset: 5 Chronic Cancer of breast (2 sources) History of ductal carcinoma in situ of breast; Translations: [Personal history of in-situ neoplasm of breast] Episodic Cardiac dysrhythmias (3 sources) Palpitations; Translations: [Palpitations] Onset: 5 12-01-2024 Episodic Cataract (19 sources) Cataract; Translations: [Unspecified cataract] 11-11-2019 Chronic [...] Onset: 5 03-12-2018 Chronic Headache; including migraine (17 sources) Headache; Translations: [Left-sided headache] 03-12-2018 Episodic Comment on above: patient with episode of few minutes of blacked out vision Left eye 03/09/2016 which brought her to ER. Since this time she has had 2 further episodes of decrased vision OS. the last one was yesterday in which ptient claims lasted 1.5 hours Heart valve disorders (11 sources) Aortic valve stenosis; Translations: [Nonrheumatic aortic (valve) stenosis] 05-28-2023 Chronic Immunizations and screening for infectious disease (18 sources) Suspected disease caused by 2019-nCoV; Translations: [Suspected COVID-19 virus infection] Episodic Menopausal disorders (20 sources) Atrophic vaginitis; Translations: [Postmenopausal atrophic vaginitis] Onset: 5 10-21-2005 Chronic Miscellaneous mental health disorders (1 source) Anxiety about body function or health; Translations: [Other symptoms and signs involving emotional state] 09-25-2023 Episodic Nonspecific chest pain (2 sources) Chest pain; Translations: [Chest pain, unspecified] 12-01-2024 Episodic Nutritional deficiencies (20 sources) Vitamin D deficiency; Translations: [Vitamin D deficiency, unspecified] Onset: Chronic Occlusion or stenosis of precerebral arteries (10 sources) Carotid artery stenosis; Translations: [Occlusion and stenosis of unspecified carotid artery] 06-06-2023 Chronic Open wounds of extremities (9 sources) Tear of skin; Translations: [Laceration without foreign body of right forearm, initial encounter] 11-21-2023 Episodic Osteoarthritis (18 sources) Arthritis; Translations: [Unspecified osteoarthritis, unspecified site] 11-11-2019 Chronic Other acquired deformities (9 sources) Scoliosis deformity of spine; Translations: [Scoliosis, unspecified] 02-11-2024 Chronic Other bone disease and musculoskeletal deformities (17 sources) Osteopenia; Translations: [Other specified disorders of bone density and structure, unspecified site] 11-11-2019 Episodic Other bone disease and musculoskeletal deformities (16 sources) Postmenopausal osteopenia; Translations: [Other specified disorders [...] deficits] 09-25-2023 Episodic Other connective tissue disease (17 sources) Polymyalgia rheumatica; Translations: [Polymyalgia rheumatica] 03-12-2018 Chronic Other gastrointestinal disorders (16 sources) Stool finding; Translations: [Other fecal abnormalities] [...] [Other psoriasis] Chronic Other lower respiratory disease (17 sources) H/O: pneumonia; Translations: [Personal history of pneumonia (recurrent)] 11-11-2019 Episodic Other lower respiratory disease (12 sources) Rib pain; Translations: [Pleurodynia] 01-28-2022 Episodic Other nervous system disorders (18 sources) Neuropathy; Translations: [Polyneuropathy, unspecified] 11-11-2019 Chronic Other nervous system disorders (5 sources) Polyneuropathy, unspecified; Translations: [Mononeuritis of unspecified site] Onset: 5 Chronic Other nervous system disorders (18 sources) Impaired cognition; Translations: [Other symptoms and signs involving cognitive functions and awareness] 05-28-2023 Episodic Other nervous system disorders (3 sources) Other symptoms and signs involving cognitive functions and awareness; Translations: [Other signs and symptoms involving cognition] Onset: 5 05-28-2023 Episodic Other non-traumatic joint disorders (7 sources) Pain in right knee; Translations: [Arthralgia of right knee] 09-12-2024 Episodic Other non-traumatic joint disorders (10 sources) Pain in left knee; Translations: [Left [...] Episodic Other nutritional; endocrine; and metabolic disorders (9 sources) H/O: thyroid disorder; Translations: [Personal history of other endocrine, nutritional and metabolic disease] 11-13-2023 Episodic Other upper respiratory disease (20 sources) Allergic rhinitis; Translations: [Allergic rhinitis, unspecified] Onset: 5 06-24-2005 Chronic Other upper respiratory disease (17 sources) Seasonal allergic rhinitis; Translations: [Other seasonal allergic rhinitis] 03-12-2018 Chronic Other upper respiratory disease (2 sources) Allergic rhinitis, unspecified; Translations: [Allergic rhinitis, cause unspecified] Chronic Other upper respiratory disease (2 sources) Other seasonal allergic rhinitis; Translations: [Allergic rhinitis, cause unspecified] Chronic Other upper respiratory disease (1 source) Throat irritation; Translations: [Other diseases of pharynx] 10-28-2022 Episodic Other upper respiratory disease (12 sources) Nasal congestion; Translations: [Nasal congestion] 09-12-2024 Episodic Residual codes; unclassified (19 sources) Other specified health status; Translations: [Consumes a vegan diet] 11-11-2019 Episodic Residual codes; unclassified (20 sources) Contact with and (suspected) exposure to [...] Onset: Chronic Skin and subcutaneous tissue infections (15 sources) Cellulitis of face; Translations: [Cellulitis of face] 11-08-2021 Episodic Systemic lupus erythematosus and connective tissue disorders (17 sources) Temporal arteritis; Translations: [Other giant cell arteritis] 11-11-2019 Chronic Thyroid disorders (18 sources) Thyroid nodule; 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 Katarina Medina MD Status:REG ER Location: ED HPI History of Present Illness Chief Complaint: Lower Extremity Injury Narrative Narrative: 79-year-old female presents with her because of the left lower extremity/lateral calf tightness that she has had for the last month. She thinks that her left lower extremity is also more swollen than the other. She denies any chest pain or shortness of breath, no fevers or chills. She relates history that she had problems with her knee in the past and may have gone to occupational therapy. She now has been doing treadmill work. However, she is relates history that she noticed that her left lower extremity may be slightly larger than her right. She has tightness in the gastrocnemius area of her left lower extremity. She denies any exacerbating or alleviating factors, but [facility] She and her were told that it was not thought that she has a cellulitis or infectious process, but she should come to the emergency department with concern for DVT of her left lower extremity. [facility] Medical History Left knee pain History of [...] 5 03/09/16 History 2 billion cell capsule biotin 1 [...] QHS 06/30 Unknown History in a dropperette diphenhydramine HCl 25 mg capsule 25 mg PO BID PRN PRN Allergies Unknown History Allergy/AdvReac Type Severity Reaction Status Date / Time aspirin Allergy Mild unknown Verified 01/13/25 19:09 calcium carbonate (From Tums) Allergy Mild Other Verified 01/13/25 19:09 estradiol (From Vagifem) Allergy Mild unknown Verified 01/13/25 19:09 latanoprost (From Xalatan) Allergy Mild unknown Verified 01/13/25 19:09 miconazole (From Monistat 3) Allergy Mild burining, Verified 01/13/25 19:09 headache, nausea phenazopyridine Allergy Mild Other Verified 01/13/25 19:09 propoxyphene (From Darvon) Allergy Mild Other Verified 01/13/25 19:09 ranitidine (From Zantac) Allergy Mild unknown Verified 01/13/25 19:09 skin cleanser combination Allergy Mild burining, Verified 01/13/25 19:09 no.17 (From Monistat 3) headache, nausea tioconazole (From Monistat 1 Allergy Mild burning, Verified 01/13/25 19:09 (tioconazole)) headache, nausea amoxicillin Allergy Anaphylaxis Verified 01/13/25 19:09 ibuprofen (From Advil) Allergy Other Verified 01/13/25 19:09 indomethacin (From Indocin) Allergy Anaphylaxis Verified 01/13/25 19:09 indomethacin sodium (From Allergy Anaphylaxis Verified 01/13/25 19:09 Indocin) prednisolone Allergy Swelling Verified 01/13/25 19:09 Sulfa (Sulfonamide Allergy Anaphylaxis Verified 01/13/25 19:09 Antibiotics) barium sulfate AdvReac Rash Verified 01/13/25 19:09 nitrofurantoin AdvReac Other Verified 01/13/25 19:09 macrocrystalline (From Macrodantin) prednisone AdvReac Other Verified 01/13/25 19:09 progesterone AdvReac Other Verified 01/13/25 19:09 propoxyphene HCl (From AdvReac Other Verified 01/13/25 19:09 Darvon) Family History Sister Breast cancer Mother Diabetes Myocardial infarction, Onset Age: 69 Arthritis Liver disease Osteoporosis Father Myocardial infarction, Onset Age: 75 (more content not included)... Normal [facility] Urgent Care Visit Reporton 1 03-15-2024 Urgent Care Visit Report [facility] [address], [address] [place] [address] OFFICE VISIT Date of Service: 01/13/25 MR#: [id number] Acct: [id number] Name: EDER SEVERINO Rep #: [id number] : 1945 Provider: DEREK Nevarez Age/Sex: 79/F Location: [facility] Status: Signed Intake Vital Signs 12/27/24 14:28 01/13/25 17:04 Height 5 ft 5 in Weight: 155 lb 8 oz BMI 25.9 BP 187/72 H 124/80 H Blood Pressure Location Rt brachial Position Sitting Sitting Respiration 16 16 Pulse 59 L 66 Pulse Source Monitor Temp 98.4 F 98.1 F Temp Source Temporal Oral Pulse Oximetry (%) 96 97 Oxygen Delivery Method room air room air Intake Visit Reasons: CONCERN FOR INFECTION L LEG Chief Complaint: Left leg Accompanied by: Is patient in pain?: No Allergies aspirin Allergy (Mild, Verified 01/13/25 19:09) unknown calcium carbonate (From Tums) Allergy (Mild, Verified 01/13/25 19:09) Other estradiol (From Vagifem) Allergy (Mild, Verified 01/13/25 19:09) unknown latanoprost (From Xalatan) Allergy (Mild, Verified 01/13/25 19:09) unknown miconazole (From Monistat 3) Allergy (Mild, Verified 01/13/25 19:09) burining, headache, nausea phenazopyridine Allergy (Mild, Verified 01/13/25 19:09) Other propoxyphene (From Darvon) Allergy (Mild, Verified 01/13/25 19:09) Other ranitidine (From Zantac) Allergy (Mild, Verified 01/13/25 19:09) unknown skin cleanser combination no.17 (From Monistat 3) Allergy (Mild, Verified 01/13/25 19:09) burining, headache, nausea tioconazole (From Monistat 1 (tioconazole)) Allergy (Mild, Verified 01/13/25 19:09) burning, headache, nausea amoxicillin Allergy (Verified 01/13/25 19:09) Anaphylaxis ibuprofen (From Advil) Allergy (Verified 01/13/25 19:09) Other indomethacin (From Indocin) Allergy (Verified 01/13/25 19:09) Anaphylaxis indomethacin sodium (From Indocin) Allergy (Verified 01/13/25 19:09) Anaphylaxis prednisolone Allergy (Verified 01/13/25 19:09) Swelling Sulfa (Sulfonamide Antibiotics) Allergy (Verified 01/13/25 19:09) Anaphylaxis barium sulfate Adverse Reaction (Verified 01/13/25 19:09) Rash nitrofurantoin macrocrystalline (From Macrodantin) Adverse Reaction (Verified 01/13/25 19:09) Other prednisone Adverse Reaction (Verified 01/13/25 19:09) Other progesterone Adverse Reaction (Verified 01/13/25 19:09) Other propoxyphene HCl (From Darvon) Adverse Reaction (Verified 01/13/25 19:09) Other Medications ???Medication ???Instructions ???Recorded ???Confirmed ???Type L.acidophilus-L.plantar um-B.animalis-B.longum 1 ea PO DAILY 5 01/13/25 History 2 billion cell capsule biotin 1 mg capsule 2,500 mcg PO QDAY 10/17/17 5 History Nattokinase 2,000 mg PO DAILY 12/05/20 5 History lutein 20 mg capsule 20 mg PO DAILY 06/10/22 01/13/25 H istory magnesium amino acid chelate 100 100 mg PO DAILY 12/09/22 01/13/25 History mg tablet phlebotomies for hemachromatosis See Rx Instructions IM .COMPLEX 01/13/25 History albuterol sulfate 90 mcg/actuation 2 puff inhalation Q4H PRN PRN 01/13/25 Rx aerosol inhaler Wheezing #8.5 grams quercetin 500 mg capsule mg PO 06/30/24 01/13/25 History Held on 09/12/24. Instructions: Conflicting Appointment tafluprost (PF) 0.0015 % eye drops 1 drp ophthalmic (eye) QHS 06/3001/13/25 History in a dropperette diphenhydramine HCl 25 mg capsule 25 mg PO BID PRN PRN Allergies 01/13/25 History Have you fallen in the past year?: No Nurse's Note: Patient left leg she is concerned for infection. Patient has spider veins that are popping up and her left is tight. Patient states that this has been going on for a month. Patient states that her leg is swollen. [facility] Medical History Left knee pain History of [...] Myocardial infarction, Onset Age: 74 Brother Myocardial infarction (more content not included)... Normal [facility] Venous Duplex Imag/Limited/U nion 01-13-2025 Venous Duplex Imag/Limited/Uni [facility] Imaging Services [address] [place], [place] [address] Venous Duplex Imag/Limited/Uni MR#: [id number] Acct: [id number] Name: EDER SEVERINO Rep #: [id number] : 1945 F 79 From: Joe Robin MD PCP: Dr. Katarina Medina MD Status: REG ER Study: Venous Duplex Imag/Limited/Uni Date of Exam: 03/15/24 Exam# [id number] Ordering Dr: Chico Enriquez MD PROCEDURE: VENOUS DUPLEX IMAG/LIMITED/UNI 01/13/2025 REASON FOR EXAM: F 79 y/o TECHNIQUE: Procedure Code: USVDUL Modality: US Procedure: VENOUS DUPLEX IMAG/LIMITED/UNI FINDINGS: There is no intraluminal echogenicity to suggest the presence of a deep venous thrombosis. Appropriate respiratory variation, augmentation and venous compression is noted. A Remy's cyst is noted within the left knee, measuring 1.8 x 0.8 x 1.6 cm. US/Venous Duplex Imag/Limited/Uni IMPRESSION: No DVT within the left lower extremity. Reading Location: [facility] CC: Dr. Chico Enriquez MD; Dr. Katarina Medina MD Fund Manager: Signed Normal [facility] CBC W Auto Differential pane l (Bld)on 01-03-2025 Basophils (Bld) [#/Vol] 0.07 10*3/uL Normal <0.11 [facility] Comment on above: Order Comment: Speci men Type: BLOOD SPECIMENOrdering Facility: [facility] Address: [address] [place] [address] Performed By: #### 5 7021-8 ####[facility] AVELINAWNCLIA [id number] [place] [address] [place] Basophils/100 WBC (Bld) 1.2 % Normal [facility] Comment on above: Order Comment: Speci men Type: BLOOD SPECIMENOrdering Facility: [facility] Address: [address] [place] [address] Performed By: #### 5 7021-8 ####[facility] TROYLIA [id number] [place] [address] [place] Differential cell count method Nom (Bld) Auto Normal [facility] Comment on above: Order Comment: Speci men Type: BLOOD SPECIMENOrdering Facility: [facility] Address: [address] [place] [address] Performed By: #### 5 7021-8 ####[facility] TROYLIA [id number] [place] [address] [place] Eosinophils (Bld) [#/Vol] 0.09 10*3/uL Normal <0.46 [facility] Comment on above: Order Comment: Speci men Type: BLOOD SPECIMENOrdering Facility: [facility] Address: [address] [place] [address] Performed By: #### 5 7021-8 ####[facility] MILLWNCLIA [id number] [place] [address] [place] Eosinophils/100 WBC (Bld) 1.6 % Normal [facility] Comment on above: Order Comment: Speci men Type: BLOOD SPECIMENOrdering Facility: [facility] Address: [address] [place] [address] Performed By: #### 5 7021-8 ####[facility]CL[facility] [id number] [place] [address] [place] Erythrocyte distribution width (RBC) [Ratio] 13.2 % Normal 11.5-15.0 [facility] Comment on above: Order Comment: Speci men Type: BLOOD SPECIMENOrdering Facility: [facility] Address: [address] [place] [address] Performed By: #### 5 7021-8 ####[facility] ERDIMITRISLIA [id number] [place] [address] [place] Hematocrit (Bld) [Volume fraction] 45.4 % Normal 36.0-46.0 [facility] Comment on above: Order Comment: Speci men Type: BLOOD SPECIMENOrdering Facility: [facility] Address: [address] [place] [address] Performed By: #### 5 7021-8 ####[facility] ERDIMITRISLI [id number] [place] [address] [place] Hemoglobin (Bld) [Mass/Vol] 15.4 g/dL Normal 11.5-15.5 [facility] Comment on above: Order Comment: Speci men Type: BLOOD SPECIMENOrdering Facility: [facility] Address: [address] [place] [address] Performed By: #### 5 7021-8 ####[facility] ERDIMITRISLIA [id number] [place] [address] [place] Immature granulocytes (Bld) [#/Vol] 10*3/uL Normal <0.10 [facility] Comment on above: Order Comment: Speci men Type: BLOOD SPECIMENOrdering Facility: [facility] Address: [address] [place] [address] Performed By: #### 5 7021-8 ####[facility] ERNCLIA [id number] [place] [address] [place] Immature granulocytes/100 WBC (Bld) 0.2 % Normal [facility] Comment on above: Order Comment: Speci men Type: BLOOD SPECIMENOrdering Facility: [facility] Address: [address] [place] [address] Performed By: #### 5 7021-8 ####[facility] [id number] [place] [address] [place] Lymphocytes (Bld) [#/Vol] 1.30 10*3/uL Normal 1.00-4.00 [facility] Comment on above: Order Comment: Speci men Type: BLOOD SPECIMENOrdering Facility: [facility] Address: [address] [place] [address] Performed By: #### 5 7021-8 ####[facility] [id number] [place] [address] [place] Lymphocytes/100 WBC (Bld) 22.8 % Normal [facility] Comment on above: Order Comment: Speci men Type: BLOOD SPECIMENOrdering Facility: [facility] Address: [address] [place] [address] Performed By: #### 5 7021-8 ####[facility] [id number] [place] [address] [place] MCH (RBC) [Entitic mass] 29.4 pg Normal 26.0-34.0 [facility] Comment on above: Order Comment: Speci men Type: BLOOD SPECIMENOrdering Facility: [facility] Address: [address] [place] [address] Performed By: #### 5 7021-8 ####[facility] [id number] [place] [address] [place] MCHC (RBC) [Mass/Vol] 33.9 g/dL Normal 30.5-36.0 [facility] Comment on above: Order Comment: Speci men Type: BLOOD SPECIMENOrdering Facility: [facility] Address: [address] [place] [address] Performed By: #### 5 7021-8 ####[facility] ERMACK [id number] [place] [address] [place] MCV (RBC) [Entitic vol] 86.8 fL Normal 80.0-100.0 [facility] Comment on above: Order Comment: Speci men Type: BLOOD SPECIMENOrdering Facility: [facility] Address: [address] [place] [address] Performed By: #### 5 7021-8 ####[facility] [id number] [place] [address] [place] Monocytes (Bld) [#/Vol] 0.44 10*3/uL Normal <0.87 [facility] Comment on above: Order Comment: Speci men Type: BLOOD SPECIMENOrdering Facility: [facility] Address: [address] [place] [address] Performed By: #### 5 7021-8 ####[facility] ERNCA [id number] [place] [address] [place] Monocytes/100 WBC (Bld) 7.7 % Normal [facility] Comment on above: Order Comment: Speci men Type: BLOOD SPECIMENOrdering Facility: [facility] Address: [address] [place] [address] Performed By: #### 5 7021-8 ####[facility] ERNCLI [id number] [place] [address] [place] Neutrophils (Bld) [#/Vol] 3.78 10*3/uL Normal 1.45-7.50 [facility] Comment on above: Order Comment: Speci men Type: BLOOD SPECIMENOrdering Facility: [facility] Address: [address] [place] [address] Performed By: #### 5 7021-8 ####[facility] AVELINAWDIMITRISLIA [id number] [place] [address] [place] Neutrophils/100 WBC (Bld) 66.5 % Normal [facility] Comment on above: Order Comment: Speci men Type: BLOOD SPECIMENOrdering Facility: [facility] Address: [address] [place] [address] Performed By: #### 5 7021-8 ####[facility] ERDIMITRISLIA [id number] [place] [address] [place] Nucleated RBC (Bld) [#/Vol] 10*3/uL Normal <0.01 [facility] Comment on above: Order Comment: Speci men Type: BLOOD SPECIMENOrdering Facility: [facility] Address: [address] [place] [address] Performed By: #### 5 7021-8 ####[facility] [id number] [place] [address] [place] Nucleated RBC/100 WBC (Bld) [Ratio] 0.0 /100 WBC Normal [facility] Comment on above: Order Comment: Speci men Type: BLOOD SPECIMENOrdering Facility: [facility] Address: [address] [place] [address] Performed By: #### 5 7021-8 ####[facility] TROYSHAHRZADA [id number] [place] [address] [place] Platelet mean volume (Bld) [Entitic vol] 9.7 fL Normal 9.0-12.7 [facility] Comment on above: Order Comment: Speci men Type: BLOOD SPECIMENOrdering Facility: [facility] Address: [address] [place] [address] Performed By: #### 5 7021-8 ####[facility] [id number] [place] [address] [place] Platelets (Bld) [#/Vol] 201 10*3/uL Normal 150-400 [facility] Comment on above: Order Comment: Speci men Type: BLOOD SPECIMENOrdering Facility: [facility] Address: [address] [place] [address] Performed By: #### 5 7021-8 ####[facility] ERNCLIA [id number] [place] [address] [place] RBC (Bld) [#/Vol] 5.23 10*6/uL High 3.90-5.20 [facility] Comment on above: Order Comment: Speci men Type: BLOOD SPECIMENOrdering Facility: [facility] Address: [address] [place] [address] Performed By: #### 5 7021-8 ####[facility] ERNCLIA [id number] [place] [address] [place] WBC (Bld) [#/Vol] 5.69 10*3/uL Normal 3.70-11.00 [facility] Comment on above: Order Comment: Speci men Type: BLOOD SPECIMENOrdering Facility: [facility] Address: [address] [place] [address] Performed By: #### 5 7021-8 ####[facility] ERNCLIA [id number] [place] [address] [place] Nevin 01-03-2025 CNPN Telephone (HEMAWS) EDER SEVERINO ([id number]) 1945 F Date Time Provider Department 01/03/25 [...] Visit Diagnosis:Encounter for screening breast examination [Z12.39] Order(s):[facility] SCREENING [facility] [[id number]] Order #: [id number] FUTURE Prescriptions as of 01/04/2025 - cholecalciferol, [...] once daily. - OTC PRODUCT [place]- r/t [facility] study - MAGNESIUM ORAL Take 1-2 tablets [...] Status:Closed by KAYLIE CRONIN on 01/04/25 Normal [facility] Ferritin [facility] 2024 Ferritin [Mass/Vol] 40.1 ng/mL Normal 14.7-205.1 [facility] Comment on above: Order Comment: Speci men Type: BLOOD SPECIMENOrdering Facility: [facility] Address: [address] [place] [address] Performed By: #### 2 276-4 ####[facility] LABCLIA [id number] [place] [address] [place] MR/Irina 12-27-2024 MR/DONA [facility] [address] [place] [address] OFFICE VISIT Date of Service: 12/27/24 MR#: [id number] Acct: [id number] Name: EDER SEVERINO Rep #: [id number] : 1945 Provider: Dr. 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 Normal [facility] 12 Lead EKGon 12-01-2024 12 Lead EKG [facility] Cardiovascular Services [address] [place] [address] 12 Lead EKG 12/01/24 1447 MR#: [id number] Acct: [id number] Name: EDER SEVERINO Rep #: [id number] : 1945 79 From: Young Brush MD [...] block Abnormal ECG Confirmed by Young Brush ([id number]), story editor LISANDRA CARVALHO ([id number]) on 12/03/2024 5:46:08 AM Referred By: AR/AK Confirmed By: Young Brush 12/03/24 0546 Date Young Brush MD CC: Dr. Chico Enriquez MD; Dr. Katarina Medina MD Signed Normal [facility] Absolute lymphocyte countOrd ered By: Chico Enriquez on 12-01-2024 Lymphocytes Auto (Unsp spec) [#/Vol] 1.80 10*3/uL 0.83-4.51 [facility] Absolute neutrophil countOrd ered By: Chico Enriquez on 12-01-2024 Neutrophils (Bld) [#/Vol] 3.8 10*3/uL 2.0-7.7 [facility] Anion gap in Serum or Plasma Ordered By: Chico Enriquez on 12-01-2024 Anion gap [Moles/Vol] 10 mmol/L 5-15 [facility] Automated lymphocyte count a s percentage of total leukocytesOrdered By: Chico Enriquez on 12-01-2024 Lymphocytes/100 WBC Auto (Unsp spec) 28.5 % 19-41 [facility] BUN/creatinine ratioOrdered By: Cihco Enriquez on 12-01-2024 Urea nitrogen/Creatinine [Mass ratio] 24.8 mg/mg High 10-20 [facility] Basic Metabolic Profile (BMP )on 12-01-2024 BUN/CRE 24.8 RATIO High 10- [facility] Comment on above: Performed By: #### L 100.0100, L501.4021, L500.2500 ####[facility] [address] [place], [address] Calcium [Mass/Vol] 10.1 mg/dL Normal 7.6-11.0 [facility] Comment on above: Performed By: #### L 100.0100, L501.4021, L500.2500 ####[facility] [address] [place], [address] Chloride [Moles/Vol] 103 mmol/L Normal 98-108 [facility] Comment on above: Performed By: #### L 100.0100, L501.4021, L500.2500 ####[facility] [address] [place], [address] CO2 [Moles/Vol] 24.9 mmol/L Normal 21.0-32.0 [facility] Comment on above: Performed By: #### L 100.0100, L501.4021, L500.2500 ####[facility] [address] [place], [address] Creatinine [Mass/Vol] 0.70 mg/dL Normal 0.70-1.20 [facility] Comment on above: Performed By: #### L 100.0100, L501.4021, L500.2500 ####[facility] [address] [place], [address] ECRCL 55.02 ml/min Normal 50-250 [facility] Comment on above: Performed By: #### L 100.0100, L501.4021, L500.2500 ####[facility] [address] [place], [address] GAP 10 Normal 5-15 [facility] Comment on above: Performed By: #### L 100.0100, L501.4021, L500.2500 ####[facility] [address] [place], [address] GFR/1.73 sq M.predicted among non-blacks MDRD (S/P/Bld) [Vol rate/Area] 87 mL/min/{1.73_m2} Normal >60 [facility] Comment on above: Result Comment: mL/m in/1.73m2 CKD-EPI Creatinine Equation (2020) Performed By: #### L 100.0100, L501.4021, L500.2500 ####[facility] [address] [place], [address] Glucose [Mass/Vol] 99 mg/dL Normal 70-99 [facility] Comment on above: Performed By: #### L 100.0100, L501.4021, L500.2500 ####[facility] [address] [place], [address] Potassium [Moles/Vol] 4.2 mmol/L Normal 3.3-5.1 [facility] Comment on above: Performed By: #### L 100.0100, L501.4021, L500.2500 ####[facility] [address] [place], [address] Sodium [Moles/Vol] 138 mmol/L Normal 133-145 [facility] [facility] Comment on above: Performed By: #### L 100.0100, L501.4021, L500.2500 ####[facility] [address] [place], [address] Urea nitrogen [Mass/Vol] 17 mg/dL Normal 4-19 [facility] Comment on above: Performed By: #### L 100.0100, L501.4021, L500.2500 ####[facility] [address] [place], [address] Basophil percentageOrdered B y: Chico Enriquez on 12-01-2024 Basophils/100 WBC (Bld) 1.3 % High 0-1 [facility] CBC W/Diff, Automatedon 11-09 Absolute Lymph 1.80 X10 3/uL Normal 0.83-4.51 [facility] Comment on above: Performed By: #### L 100.0100, L501.4021, L500.2500 ####[facility] [address] [place], [address] Absolute Neut 3.8 X10 3/uL Normal 2.0-7.7 [facility] Comment on above: Performed By: #### L 100.0100, L501.4021, L500.2500 ####[facility] [address] [place], [address] Basophils/100 WBC (Bld) 1.3 % High 0-1 [facility] Comment on above: Performed By: #### L 100.0100, L501.4021, L500.2500 ####[facility] [address] [place], [address] Eosinophils/100 WBC (Bld) 2.2 % Normal 0-5 [facility] Comment on above: Performed By: #### L 100.0100, L501.4021, L500.2500 ####[facility] [address] [place], [address] Erythrocyte distribution width (RBC) [Ratio] 12.8 % Normal 11.6-14.6 [facility] Comment on above: Performed By: #### L 100.0100, L501.4021, L500.2500 ####[facility] [address] [place], [address] Hematocrit (Bld) [Volume fraction] 43.8 % Normal 37-47 [facility] Comment on above: Performed By: #### L 100.0100, L501.4021, L500.2500 ####[facility] [address] [place], [address] Hemoglobin (Bld) [Mass/Vol] 14.8 g/dL Normal 12.0-15.0 [facility] Comment on above: Performed By: #### L 100.0100, L501.4021, L500.2500 ####[facility] [address] [place], [address] IG% 0.300 Normal 0.0-0.9 [facility] Comment on above: Result Comment: IG% - Immature Granulocytes (promyelocytes, myelocytes and metamyelocytes) > 1% indicates that a LEFT SHIFT is Present. Performed By: #### L 100.0100, L501.4021, L500.2500 ####[facility] [address] [place], [address] Lymphocytes/100 WBC (Bld) 28.5 % Normal 19-41 [facility] Comment on above: Performed By: #### L 100.0100, L501.4021, L500.2500 ####[facility] [address] [place], [address] MCH (RBC) [Entitic mass] 28.5 pg Normal 27.0-32.0 [facility] Comment on above: Performed By: #### L 100.0100, L501.4021, L500.2500 ####[facility] [address] [place], [address] MCHC (RBC) [Mass/Vol] 33.8 g/dL Normal 32-36 [facility] Comment on above: Performed By: #### L 100.0100, L501.4021, L500.2500 ####[facility] [address] [place], [address] MCV (RBC) [Entitic vol] 84.2 fL Normal 81-99 [facility] Comment on above: Performed By: #### L 100.0100, L501.4021, L500.2500 ####[facility] [address] [place], [address] Monocytes/100 WBC (Bld) 7.4 % Normal 0-10 [facility] Comment on above: Performed By: #### L 100.0100, L501.4021, L500.2500 ####[facility] [address] [place], [address] Neutrophils/100 WBC (Bld) 60.3 % Normal 47-70 [facility] Comment on above: Performed By: #### L 100.0100, L501.4021, L500.2500 ####[facility] [address] [place], [address] Nucleated RBC (Bld) [#/Vol] 0 10*3/uL Normal 0-5 [facility] Comment on above: Performed By: #### L 100.0100, L501.4021, L500.2500 ####[facility] [address] [place], [address] Platelet mean volume (Bld) [Entitic vol] 9.5 fL Normal 6.2-12.0 [facility] Comment on above: Performed By: #### L 100.0100, L501.4021, L500.2500 ####[facility] [address] [place], [address] Platelets (Bld) [#/Vol] 228 10*3/uL Normal 150-450 [facility] Comment on above: Performed By: #### L 100.0100, L501.4021, L500.2500 ####[facility] [address] [place], [address] RBC (Bld) [#/Vol] 5.20 10*6/uL Normal 4.2-5.4 [facility] Comment on above: Performed By: #### L 100.0100, L501.4021, L500.2500 ####[facility] [address] [place], [address] RDW SD 38.8 fl Normal 35.1-43.9 [facility] Comment on above: Performed By: #### L 100.0100, L501.4021, L500.2500 ####[facility] [address] [place], [address] WBC (Bld) [#/Vol] 6.3 10*3/uL Normal 4.4-11.0 [facility] Comment on above: Performed By: #### L 100.0100, L501.4021, L500.2500 ####[facility] [address] [place], [address] Carbon dioxide, total [Moles /volume] in Central venous bloodOrdered By: Chico Enriquez on 12-01-2024 CO2 [Moles/Vol] 24.9 mmol/L 21.0-32.0 [facility] Chest 1 View (Portable)on Chest 1 View (Portable) [facility] Imaging Services [address] [place] [address] Chest 1 View (Portable) MR#: [id number] Acct: [id number] Name: EDER SEVERINO Rep #: [id number] : 1945 F 79 From: Tyree Mendes MD PCP: Dr. Katarina Medina MD Status: REG ER Study: Chest 1 View (Portable) Date of Exam: 12/01/24 Exam# [id number] Ordering Dr: Chico Enriquez MD PROCEDURE: CHEST [...] evidence of acute cardiopulmonary disease. Reading Location: CQI-[id number] CC: Dr. Chico Enriquez MD; Dr. Katarina Medina MD Fund Manager: Signed Normal [facility] Chloride assayOrdered By: Abundio Enriquez on 12-01-2024 Chloride [Moles/Vol] 103 mmol/L 98-108 [facility] Electrocardiogram reportOrde red By: Young Brush on 12-01-2024 EKG study [facility] Cardiovascular Services [address] [facility] [place] [address] 12 Lead EKG 12/01/24 1447 MR#: [id number] Acct: [id number] Name: EDER SEVERINO Rep #:[id number] : 1945 79 From: Young mak MD [...] block Abnormal ECG Confirmed by Young Brush ([id number]), story editor LISANDRA CARVALHO ([id number]) on 55:46:08 AM Referred By: JIGNESH/SANDHYA Confirmed By: Young Brush 12/03/24 0546 Date _ Young Brush MD CC: Dr. Chico Enriquez MD; Dr. Katarina Medina MD ~ Signed [facility] Other Phone: Emergency Department Summary on 12-01-2024 Emergency Department Summary [facility] Medical Records Department [address] [place] [id number] Emergency Department Summary 12/01/24 MR#: [id number] Acct: [id number] Name: EDER SEVERINO Rep #: [id number] : 1945 79 From: Chico Enriquez MD PCP: Dr. Katarina Medina MD Status:REG ER Location: ED HPI History of Present Illness Chief Complaint: Palpitations Narrative Narrative: 79-year-old female past medical history of glaucoma and macular degeneration states she has been on eyedrops from her research chemical engineer, Dr. Chan, for 3 to 4 months. [...] eyedrops and made an appointment with her research chemical engineer to see if there was a correlation. [...] nausea or vomiting, no shortness of breath. [facility] Medical History Left knee pain History of [...] 12/01/24 14:37 (more content not included)... Normal [facility] Eosinophil percentageOrdered By: Chico Enriquez on 12-01-2024 Eosinophils/100 WBC (Bld) 2.2 % 0-5 [facility] Erythrocyte distribution wid th ratioOrdered By: Chico Enriquez on 12-01-2024 Erythrocyte distribution width (RBC) [Ratio] 12.8 % 11.6-14.6 [facility] Erythrocyte distribution wid th standard deviationOrdered By: Chico Enriquez on 12-01-2024 Erythrocyte distribution width (RBC) [Ratio] 38.8 fl 35.1-43.9 [facility] Glomerular filtration rate ( GFR) estimation/1.73 sq m using serum, plasma, or whole bOrdered By: Chico Enriquez on 12-01-2024 GFR/1.73 sq M.predicted among non-blacks MDRD (S/P/Bld) [Vol rate/Area] 87 mL/min/{1.73_m2} >60 [facility] Comment on above: mL/min/1.73m2 CKD-EP I Creatinine Equation (2020) Hematocrit Auto (Bld) [Volum e fraction]Ordered By: Chico Enriquez on 12-01-2024 Hematocrit (Bld) [Volume fraction] 43.8 % 37-47 [facility] Hemoglobin measurementOrdere d By: Chico Enriquez on 12-01-2024 Hemoglobin (Bld) [Mass/Vol] 14.8 g/dL 12.0-15.0 [facility] Immature granulocytes/100 WB C Auto (Bld)Ordered By: Chico Enriquez on 12-01-2024 Immature granulocytes/100 WBC (Bld) 0.300 % 0.0-0.9 [facility] Comment on above: IG% - Immature Granu locytes (promyelocytes, myelocytes and metamyelocytes) > 1% indicates that a LEFT SHIFT is Present. L501.4021on 12-01-2024 Trop T High Sen 14 ng/L Normal <=14 [facility] Comment on above: Performed By: #### L 100.0100, L501.4021, L500.2500 ####[facility] [address] [place], [place], [address] MCV (mean corpuscular volume ) determinationOrdered By: Chico Enriquez on 12-01-2024 MCV (RBC) [Entitic vol] 84.2 fL 81-99 [facility] Mean corpuscular hemoglobin (MCH) determinationOrdered By: Chico Enriquez on 12-01-2024 MCH (RBC) [Entitic mass] 28.5 pg 27.0-32.0 [facility] Mean corpuscular hemoglobin concentration (MCHC) determinationOrdered By: Chico Enriquez on 12-01-2024 MCHC (RBC) [Mass/Vol] 33.8 g/dL 32-36 [facility] Mean platelet volume determi nationOrdered By: Chico Enriquez on 12-01-2024 Platelet mean volume (Bld) [Entitic vol] 9.5 fL 6.2-12.0 [facility] Monocyte percentageOrdered B y: Chico Enriquez on 12-01-2024 Monocytes/100 WBC (Bld) 7.4 % 0-10 [facility] Neutrophil percentageOrdered By: Chico Enriquez on 12-01-2024 Neutrophils/100 WBC (Bld) 60.3 % 47-70 [facility] Nucleated red blood cell per centageOrdered By: Chico Enriquez on 12-01-2024 Nucleated RBC/100 WBC (Bld) [Ratio] 0 % 0-5 [facility] Platelet countOrdered By: Abundio Enriquez on 12-01-2024 Platelets (Bld) [#/Vol] 228 10*3/uL 150-450 [facility] Potassium measurement (mass/ volume)Ordered By: Chico Enriquez on 12-01-2024 Potassium (Unsp spec) [Mass/Vol] 4.2 mmol/L 3.3-5.1 [facility] RBC Auto (Bld) [#/Vol]Ordere d By: Chico Enriquez on 12-01-2024 RBC (Bld) [#/Vol] 5.20 10*6/uL 4.2-5.4 [facility] Serum creatinine measurement (mass/volume)Ordered By: Chico Enriquez on 12-01-2024 Creatinine [Mass/Vol] 0.70 mg/dL 0.70-1.20 [facility] Serum glucose measurement (m ass/volume)Ordered By: Chico Enriquez on 12-01-2024 Glucose [Mass/Vol] 99 mg/dL 70-99 [facility] Serum or plasma calcium chapis urement (mass/volume)Ordered By: Chico Enriquez on 12-01-2024 Calcium [Mass/Vol] 10.1 mg/dL 7.6-11.0 [facility] Serum or plasma urea nitroge n measurement (mass/volume)Ordered By: Chico Enriquez on 12-01-2024 Urea nitrogen [Mass/Vol] 17 mg/dL 4-19 [facility] Sodium levelOrdered By: Chico Enriquez on 12-01-2024 Sodium [Moles/Vol] 138 mmol/L 133-145 [facility] Troponin T HS 4 HRon 025 Trop T High Sen Normal <=14 [facility] Comment on above: Result Comment: Canc elled via OM: Order cancelled - Patient discharged Performed By: #### L 499.0043 #### [facility] [address] [place], [place], [address] Result Comment: OMI ENT DISCHARGED Performed By: #### L 499.0042 ####[facility] [address] [place], [place], [address] Troponin T.cardiac [Mass/vol ume] in Serum or Plasma by High sensitivity methodOrdered By: Chico Enriquez on 12-01-2024 Troponin T.cardiac High sensitivity method [Mass/Vol] 14 ng/L <14 [facility] White blood cell (WBC) count Ordered By: Chico Enriquez on 12-01-2024 WBC (Bld) [#/Vol] 6.3 10*3/uL 4.4-11.0 [facility] Urine Cultureon 10-20-2024 URC Escherichia coli [place] Count 11,000-25,000 Escherichia coli: REACTION Ampicillin Islt [...] TMP SMX Islt TOMASA <=20 S Normal [facility] Comment on above: Performed By: #### M 472.1220 ####[facility] [address] [place], [address] Laboratory - Chemistry and C hemistry - challengeOrdered By: Moose Lawrence on 10-18-2024 Bilirubin Ql (U) Negative [facility] Glucose Ql (U) Negative [facility] Ketones Ql (U) Negative [facility] pH (U) 6.5 [pH] [facility] Specific gravity (U) [Rel density] 1.010 [facility] Urobilinogen (U) [Mass/Vol] 1 mg/dL [facility] Laboratory - Hematology and Cell countsOrdered By: Moose Lawrence on 10-18-2024 Hemoglobin Ql (U) Negative [facility] Laboratory - Specimen inform ationOrdered By: Moose Lawrence on 10-18-2024 Clarity (U) Clear [facility] Color (U) YELLOW [facility] Laboratory - UrinalysisOrder ed By: Moose Lawrence on 10-18-2024 Nitrite Ql (U) Negative [facility] Protein Ql (U) Negative [facility] No Panel InformationOrdered By: Moose Lawrence on 10-18-2024 Urine Leukocytes Positive [facility] Urine Non-Hemolyzed Blood Negative [facility] Urgent Care Visit Reporton 0 10-18-2024 Urgent Care Visit Report [facility] [address], [address] [place] [address] OFFICE VISIT Date of Service: 10/18/24 MR#: [id number] Acct: [id number] Name: EDER SEVERINO Rep #: [id number] : 1945 Provider: DEREK Cha Age/Sex: 79/F Location: [facility] Status: Signed Intake Vital Signs 09/15/24 09:52 [...] urgency. X 4 or 5 days[facility] Medical History (Updated 09/20/24 @ 00:00 by Eve Ulloa) Left knee pain History of thyroid nodule [...] History (R (more content not included)... Normal [facility] Urine cultureOrdered By: Noah Lawrence on 10-18-2024 Bacteria identified Cx Nom (U) Escherichia coli Abnormal [facility] Bacteria identified Cx Nom (U) Escherichia coli Abnormal [facility] CNOVSPon 10-12-2024 CNOVSP Visit (SP) Office ([place]) EDER SEVERINO ([id number]) 1945 F Date Time Provider Department 10/12/24 [...] receptors were positive (greater than 95%, strong) [place] positive (greater than 95%, moderate and HER-2 [...] which included preparing to see the patient, yrmg-nr-nxfu patient care, completing clinical documentation, obtaining and/or [...] - In (more content not included)... Normal [facility] AFP SerPl-mCncon 10-11-2024 AFP [Mass/Vol] 3.91 ng/mL Normal <9.00 [facility] Comment on above: Order Comment: Speci men Type: BLOOD SPECIMENOrdering Facility: [facility] Address: [address] [place] [address] Result Comment: The Alpha-Fetoprotein test was performed using the [employer] DxI immunoenzymatic assay. Results obtained with different assay methods or kits cannot be used interchangeably. Performed By: #### 1 834-1 ####[facility] LABCLIA [id number] [facility] [place] [address] [place] CBC W Auto Differential pane l (Bld)on 10-11-2024 Basophils (Bld) [#/Vol] 0.07 10*3/uL Normal <0.11 [facility] Comment on above: Order Comment: Speci men Type: BLOOD SPECIMENOrdering Facility: [facility] Address: [address] [place] [address] Performed By: #### 5 7021-8 ####[facility] MILLWDCLIA [id number] [place] [address] [place] Basophils/100 WBC (Bld) 1.3 % Normal [facility] Comment on above: Order Comment: Speci men Type: BLOOD SPECIMENOrdering Facility: [facility] Address: [address] [place] [address] Performed By: #### 5 7021-8 ####[facility] MIAMIA [id number] [place] [address] [place] Differential cell count method Nom (Bld) Auto Normal [facility] Comment on above: Order Comment: Speci men Type: BLOOD SPECIMENOrdering Facility: [facility] Address: [address] [place] [address] Performed By: #### 5 7021-8 ####[facility] TROYLIA [id number] [place] [address] [place] Eosinophils (Bld) [#/Vol] 0.10 10*3/uL Normal <0.46 [facility] Comment on above: Order Comment: Speci men Type: BLOOD SPECIMENOrdering Facility: [facility] Address: [address] [place] [address] Performed By: #### 5 7021-8 ####[facility] MILLMODENANCLIA [id number] [place] [address] [place] Eosinophils/100 WBC (Bld) 1.9 % Normal [facility] Comment on above: Order Comment: Speci men Type: BLOOD SPECIMENOrdering Facility: [facility] Address: [address] [place] [address] Performed By: #### 5 7021-8 ####[facility] AVELINADarleneNCYAZMIN [id number] [place] [address] [place] Erythrocyte distribution width (RBC) [Ratio] 12.8 % Normal 11.5-15.0 [facility] Comment on above: Order Comment: Speci men Type: BLOOD SPECIMENOrdering Facility: [facility] Address: [address] [place] [address] Performed By: #### 5 7021-8 ####[facility] ERNCLIA [id number] [place] [address] [place] Hematocrit (Bld) [Volume fraction] 42.1 % Normal 36.0-46.0 [facility] Comment on above: Order Comment: Speci men Type: BLOOD SPECIMENOrdering Facility: [facility] Address: [address] [place] [address] Performed By: #### 5 7021-8 ####[facility] ERNCLIA [id number] [place] [address] [place] Hemoglobin (Bld) [Mass/Vol] 14.4 g/dL Normal 11.5-15.5 [facility] Comment on above: Order Comment: Speci men Type: BLOOD SPECIMENOrdering Facility: [facility] Address: [address] [place] [address] Performed By: #### 5 7021-8 ####[facility] ERNCLIA [id number] [place] [address] [place] Immature granulocytes (Bld) [#/Vol] 10*3/uL Normal <0.10 [facility] Comment on above: Order Comment: Speci men Type: BLOOD SPECIMENOrdering Facility: [facility] Address: [address] [place] [address] Performed By: #### 5 7021-8 ####[facility] AVELINAMODENANCLIA [id number] [address] STATES [facility] Immature granulocytes/100 WBC (Bld) 0.2 % Normal [facility] Comment on above: Order Comment: Speci men Type: BLOOD SPECIMENOrdering Facility: [facility] Address: [address] [place] [address] Performed By: #### 5 7021-8 ####[facility] MIAMIA [id number] [place] [address] [place] Lymphocytes (Bld) [#/Vol] 1.38 10*3/uL Normal 1.00-4.00 [facility] Comment on above: Order Comment: Speci men Type: BLOOD SPECIMENOrdering Facility: [facility] Address: [address] [place] [address] Performed By: #### 5 7021-8 ####[facility] TROY[facility] [id number] [address] [place] Lymphocytes/100 WBC (Bld) 25.8 % Normal [facility] Comment on above: Order Comment: Speci men Type: BLOOD SPECIMENOrdering Facility: [facility] Address: [address] [place] [address] Performed By: #### 5 7021-8 ####[facility] TROY[facility] [id number] [place] [address] [place] MCH (RBC) [Entitic mass] 29.4 pg Normal 26.0-34.0 [facility] Comment on above: Order Comment: Speci men Type: BLOOD SPECIMENOrdering Facility: [facility] Address: [address] [place] [address] Performed By: #### 5 7021-8 ####[facility] [id number] [place] [address] [place] MCHC (RBC) [Mass/Vol] 34.2 g/dL Normal 30.5-36.0 [facility] Comment on above: Order Comment: Speci men Type: BLOOD SPECIMENOrdering Facility: [facility] Address: [address] [place] [address] Performed By: #### 5 7021-8 ####[facility] ERLIZA [id number] [place] [address] [place] MCV (RBC) [Entitic vol] 85.9 fL Normal 80.0-100.0 [facility] Comment on above: Order Comment: Speci men Type: BLOOD SPECIMENOrdering Facility: [facility] Address: [address] [place] [address] Performed By: #### 5 7021-8 ####[facility] ERMACK [id number] [place] [address] [place] Monocytes (Bld) [#/Vol] 0.33 10*3/uL Normal <0.87 [facility] Comment on above: Order Comment: Speci men Type: BLOOD SPECIMENOrdering Facility: [facility] Address: [address] [place] [address] Performed By: #### 5 7021-8 ####[facility] ERLIZA [id number] [place] [address] [place] Monocytes/100 WBC (Bld) 6.2 % Normal [facility] Comment on above: Order Comment: Speci men Type: BLOOD SPECIMENOrdering Facility: [facility] Address: [address] [place] [address] Performed By: #### 5 7021-8 ####[facility] ERNCLIA [id number] [place] [address] [place] Neutrophils (Bld) [#/Vol] 3.45 10*3/uL Normal 1.45-7.50 [facility] Comment on above: Order Comment: Speci men Type: BLOOD SPECIMENOrdering Facility: [facility] Address: [address] [place] [address] Performed By: #### 5 7021-8 ####[facility] [id number] [place] [address] [place] Neutrophils/100 WBC (Bld) 64.6 % Normal [facility] Comment on above: Order Comment: Speci men Type: BLOOD SPECIMENOrdering Facility: [facility] Address: [address] [place] [address] Performed By: #### 5 7021-8 ####[facility] [id number] [place] [address] [place] Nucleated RBC (Bld) [#/Vol] 10*3/uL Normal <0.01 [facility] Comment on above: Order Comment: Speci men Type: BLOOD SPECIMENOrdering Facility: [facility] Address: [address] [place] [address] Performed By: #### 5 7021-8 ####[facility] [id number] [place] [address] [place] Nucleated RBC/100 WBC (Bld) [Ratio] 0.0 /100 WBC Normal [facility] Comment on above: Order Comment: Speci men Type: BLOOD SPECIMENOrdering Facility: [facility] Address: [address] [place] [address] Performed By: #### 5 7021-8 ####[facility] [id number] [place] [address] [place] Platelet mean volume (Bld) [Entitic vol] 9.2 fL Normal 9.0-12.7 [facility] Comment on above: Order Comment: Speci men Type: BLOOD SPECIMENOrdering Facility: [facility] Address: [address] [place] [address] Performed By: #### 5 7021-8 ####[facility] EUGENIEWNCLIA [id number] [place] [address] [place] Platelets (Bld) [#/Vol] 198 10*3/uL Normal 150-400 [facility] Comment on above: Order Comment: Speci men Type: BLOOD SPECIMENOrdering Facility: [facility] Address: [address] [place], [place] [address] Performed By: #### 5 7021-8 ####[facility] AVELINAMODENANCLIA [id number] [place] [address] [place] [facility] [place] RBC (Bld) [#/Vol] 4.90 10*6/uL Normal 3.90-5.20 [facility] Center Comment on above: Order Comment: Speci men Type: BLOOD SPECIMENOrdering Facility: [facility] Address: [address] [place], [place] [address] Performed By: #### 5 7021-8 ####[facility] ERNCLIA [id number] [place] [address] [place] WBC (Bld) [#/Vol] 5.34 10*3/uL Normal 3.70-11.00 [facility] Comment on above: Order Comment: Speci men Type: BLOOD SPECIMENOrdering Facility: [facility] Address: [address] [place], [place] [address] Performed By: #### 5 7021-8 ####[facility] ERNCLIA [id number] [place] [address] [place] [facility] [place] Comprehensive metabolic 2000 panelon 10-11-2024 Albumin [Mass/Vol] 4.1 g/dL Normal 3.9-4.9 [facility] Comment on above: Order Comment: Speci men Type: BLOOD SPECIMENOrdering Facility: [facility] Address: [address] [place], [place] [address] Performed By: #### 2 4323-8 ####[facility] MILLTOWNCLIA [id number] [place] [address] [place] ALP [Catalytic activity/Vol] 66 U/L Normal 34-123 [facility] Comment on above: Order Comment: Speci men Type: BLOOD SPECIMENOrdering Facility: [facility] Address: [address] [place] [address] Performed By: #### 2 4323-8 ####[facility] MILLTOWNCLIA [id number] [place] [address] [place] ALT [Catalytic activity/Vol] 8 U/L Normal 7-38 [facility] Comment on above: Order Comment: Speci men Type: BLOOD SPECIMENOrdering Facility: [facility] Address: [address] [place] [address] Performed By: #### 2 4323-8 ####[facility] ERNCLIA [id number] [place] [address] [place] Anion gap [Moles/Vol] 12 mmol/L Normal 8-15 [facility] Comment on above: Order Comment: Speci men Type: BLOOD SPECIMENOrdering Facility: [facility] Address: [address] [place] [address] Performed By: #### 2 4323-8 ####[facility] [id number] [place] [address] [place] AST [Catalytic activity/Vol] 14 U/L Normal 13-35 [facility] Comment on above: Order Comment: Speci men Type: BLOOD SPECIMENOrdering Facility: [facility] Address: [address] [place] [address] Performed By: #### 2 4323-8 ####[facility] [id number] [place] [address] [place] Bilirubin [Mass/Vol] 0.6 mg/dL Normal 0.2-1.3 [facility] Comment on above: Order Comment: Speci men Type: BLOOD SPECIMENOrdering Facility: [facility] Address: [address] [place] [address] Performed By: #### 2 4323-8 ####[facility] [id number] [place] [address] [place] Calcium [Mass/Vol] 9.7 mg/dL Normal 8.5-10.2 [facility] Comment on above: Order Comment: Speci men Type: BLOOD SPECIMENOrdering Facility: [facility] Address: [address] [place] [address] Performed By: #### 2 4323-8 ####[facility] ERNCLIA [id number] [place] [address] [place] Chloride [Moles/Vol] 102 mmol/L Normal 98-107 [facility] Comment on above: Order Comment: Speci men Type: BLOOD SPECIMENOrdering Facility: [facility] Address: [address] [place], [place] [address] Performed By: #### 2 4323-8 ####[facility] MIAMIA [id number] [place] [address] [place] CO2 [Moles/Vol] 23 mmol/L Normal 22-30 [facility] Comment on above: Order Comment: Speci men Type: BLOOD SPECIMENOrdering Facility: [facility] Address: [address] [place] [address] Performed By: #### 2 4323-8 ####[facility] ERNCA [id number] [place] [address] [place] Creatinine [Mass/Vol] 0.65 mg/dL Normal 0.58-0.96 [facility] Comment on above: Order Comment: Speci men Type: BLOOD SPECIMENOrdering Facility: [facility] Address: [address] [place] [address] Performed By: #### 2 4323-8 ####[facility] [id number] [place] [address] [place] eGFRcr SerPlBld CKD-EPI 2020 89 mL/min/1.73m??? Normal >=60 [facility] Comment on above: Order Comment: Bre richards Type: BLOOD SPECIMENOrdering Facility: [facility] Address: [address] [place] [address] Result Comment: Sara mated Glomerular Filtration Rate [...] actual GFR. Performed By: #### 2 4323-8 ####[facility] ERNCLIA [id number] [place] [address] [place] Glucose [Mass/Vol] 124 mg/dL High 74-99 [facility] Comment on above: Order Comment: Bre richards Type: BLOOD SPECIMENOrdering Facility: [facility] Address: [address] [place] [address] Result Comment: The [place] Diabetes Association (ADA) provides guidance for cutoff [...] Standards of Medical Care in Diabetes 2016, [place] [employer]. Diabetes Care. 2016.39(Suppl 1). Performed By: #### 2 4323-8 ####[facility] [id number] [place] [address] [place] Potassium [Moles/Vol] 3.8 mmol/L Normal 3.7-5.1 [facility] Comment on above: Order Comment: Speci men Type: BLOOD SPECIMENOrdering Facility: [facility] Address: [address] [place] [address] Performed By: #### 2 4323-8 ####[facility] MILLTOWNCLIA [id number] [place] [address] [place] Protein [Mass/Vol] 6.3 g/dL Normal 6.3-8.0 [facility] Comment on above: Order Comment: Speci men Type: BLOOD SPECIMENOrdering Facility: [facility] Address: [address] [place] [address] Performed By: #### 2 4323-8 ####[facility] TROYLIA [id number] [place] [address] [place] Sodium [Moles/Vol] 137 mmol/L Normal 136-144 [facility] Comment on above: Order Comment: Speci men Type: BLOOD SPECIMENOrdering Facility: [facility] Address: [address] [place] [address] Performed By: #### 2 4323-8 ####[facility] ERNCLIA [id number] [place] [address] [place] Urea nitrogen [Mass/Vol] 13 mg/dL Normal 7-21 [facility] Comment on above: Order Comment: Speci men Type: BLOOD SPECIMENOrdering Facility: [facility] Address: [address] [place] [address] Performed By: #### 2 4323-8 ####[facility] MILLTONCLIA [id number] [place] [address] [place] Ferritin SerPl-mCncon 2024 Ferritin [Mass/Vol] 32.3 ng/mL Normal 14.7-205.1 [facility] Comment on above: Order Comment: Speci men Type: BLOOD SPECIMENOrdering Facility: [facility] Address: [address] [place] [address] Performed By: #### 5 0190-8, 2275- ####[facility] LABCLIA [id number] [place] [address] [place] Iron and Iron binding capaci ty panelon 10-11-2024 Iron [Mass/Vol] 86 ug/dL Normal 41-186 [facility] Comment on above: Order Comment: Speci men Type: BLOOD SPECIMENOrdering Facility: [facility] Address: [address] [place] [address] Performed By: #### 5 0190-8, 2275-06 ####[facility] LABIA [id number] [address] STATES OF [facility] Iron binding capacity [Mass/Vol] 333 ug/dL Normal 232-386 [facility] Comment on above: Order Comment: Speci men Type: BLOOD SPECIMENOrdering Facility: [facility] Address: [address] [place] [address] Performed By: #### 5 0190-8, 2275-06 ####[facility] LABIA [id number] [place] [address] [place] Iron/TIBC [Molar ratio] 25.8 % Normal 15.0-57.0 [facility] Comment on above: Order Comment: Speci men Type: BLOOD SPECIMENOrdering Facility: [facility] Address: [address] [place] [address] Performed By: #### 5 0190-8, 2275-06 ####[facility] LABCLIA [id number] [place] [id number] [place] MR/Irina 09-15-2024 MR/DONA [facility] [address] [place] [address] OFFICE VISIT Date of Service: 09/15/24 MR#: [id number] Acct: [id number] Name: EDER SEVERINO Rep #: [id number] : 1945 Provider: Dr. Katarina dias MD Age/Sex: 79/F Location: [facility] Status: Signed Intake Vital Signs 09/12/24 08:36 [...] Delivery Method room air Intake Visit Reasons: [facility] ER FU Chief Complaint: [facility] ER FU Corduroy Brusher Operator Required: No Accompanied by: Is patient in [...] History Smoking (more content not included)... Normal [facility] Chest PA and Lateralon 09-12 Chest PA and Lateral [facility] Imaging Services [address] [place] [address] Chest PA and Lateral MR#: [id number] Acct: [id number] Name: EDER SEVERINO Rep #: [id number] : 1945 F 79 From: Jensen Deal MD PCP: Dr. Katarina Medina MD Status: REG ER Study: Chest PA and Lateral Date of Exam: 09/12/24 Exam# [id number] Ordering Dr: Nathanael Bowers DO PROCEDURE: CHEST [...] evidence of acute cardiopulmonary pathology. Reading Location: KBA-NNHLEA-BP CC: Dr. Nathanael Bowers DO; Dr. 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 She denies any fever, chills, shortness of [...] intact Psych: Cooperative, appropriate mood and affect [facility] Medical History History of thyroid nodule Secondary [...] 09/12/24 08:36 (more content not included)... Normal [facility] Knee 4 or More Viewson 09-12 Knee 4 or More Views [facility] Imaging Services [address] [place] [address] Knee 4 or More Views MR#: [id number] Acct: [id number] Name: EDER SEVERINO Rep #: [id number] : 1945 F 79 From: Jensen Deal MD PCP: Dr. 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 Reading Location: EGG-GNDOGQ-SC CC: Dr. Nathanael Bowers DO; Dr. Katarina Medina MD Fund Manager: Signed Normal [facility] Urgent Care Visit Reporton 0 09-01-2024 Urgent Care Visit Report [facility] [address] [place] [address] OFFICE VISIT Date of Service: 09/01/24 MR#: [id number] Acct: [id number] Name: EDER SEVERINO Rep #: [id number] : 1945 Provider: DEREK Cha Age/Sex: 79/F Location: [facility] Status: Signed Intake Vital Signs 07/20/24 14:05 09/01/24 16:20 Height 5 ft 5 in BP 124/80 H Blood Pressure Location Rt brachial Position Sitting Respiration 16 Pulse 61 Pulse Source NIBP Temp 98.2 F Temp Source Oral Pulse Oximetry (%) 97 Intake Visit Reasons: CONGESTION, SINUS, THROAT BLOCKAGE Chief Complaint: Mucus in throat 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 Started 5 weeks ago. [facility] Medical History History of thyroid nodule [...] told to stop the drops by her research chemical engineer 2 weeks ago for a week to see if the symptoms subsided which they did only minimally then restarted and worsened once again therefore patient has not been using her drops over the last 3 days but she has not told her research chemical engineer about the last 3 days. She notes (more content not included)... Normal [facility] 25(OH)D3 [facility] 2024 25-hydroxyvitamin D3 [Mass/Vol] 72.3 ng/mL Normal 31.0-80.0 [facility] Comment on above: Order Comment: Speci men Type: BLOOD SPECIMENOrdering Facility: [facility] Address: [address] [place] [address] Performed By: #### 1 989-3 ####[facility] LABIA [id number] [address] [place] Nevin 08-27-2024 CRISTIAN Telephone (DOLLY) EDER SEVERINO ([id number]) 1945 F Date Time Provider Department 08/27/24 [...] jittery Date Reviewed: 07/20/2024 Reviewed by: Migdalia Sandoval, RN - Fully Assessed Reason for Visit: [...] once daily. - OTC PRODUCT [place]- r/t [facility] study - MAGNESIUM ORAL Take 300 [...] 07/17/2016 Heredi (more content not included)... Normal [facility] Gastroenterology Visit Repor ton 07-30-[address] [facility] [address] [place] [address] OFFICE VISIT Date of Service: 07/30/24 MR#: [id number] Acct: [id number] Name: EDER SEVERINO Rep #: [id number] : 1945 Provider: Pascual Fletcher, Age/Sex: 79/F Location: [facility] Status: Signed Intake Vital Signs 06/30/24 14:34 [...] Pt her (more content not included)... Normal [facility] YUSEF + Protein Elect, Serumon 07-20-2024 Albumin [Mass/Vol] 3.8 g/dL Normal 2.9-4.4 [facility] Comment on above: Order Comment: Y Performed By: #### L 3100.3425, L100.0100, L500.4050, L300.3900, L503.5510 ####[facility] [address] [place], [address] Albumin/Globulin [Mass ratio] 1.4 {ratio} Normal 0.7-1.7 [facility] Comment on above: Order Comment: Y Performed By: #### L 3100.3425, L100.0100, L500.4050, L300.3900, L503.5510 ####[facility] [address] [place], [address] WPIOU-4-LBXZ 0.3 g/dL Normal 0.0-0.4 [facility] Comment on above: Order Comment: Y Performed By: #### L 3100.3425, L100.0100, L500.4050, L300.3900, L503.5510 ####[facility] [address] [place], [address] TLQJK-4-OTNC 0.8 g/dL Normal 0.4-1.0 [facility] Comment on above: Order Comment: Y Performed By: #### L 3100.3425, L100.0100, L500.4050, L300.3900, L503.5510 ####[facility] [address] [place], [address] BETA GLOBULIN 1.0 g/dL Normal 0.7-1.3 [facility] Comment on above: Order Comment: Y Performed By: #### L 3100.3425, L100.0100, L500.4050, L300.3900, L503.5510 ####[facility] [address] [place], [address] GAMMA GLOBULIN 0.7 g/dL Normal 0.4-1.8 [facility] Comment on above: Order Comment: Y Performed By: #### L 3100.3425, L100.0100, L500.4050, L300.3900, L503.5510 ####[facility] [address] [place], [address] Globulin (S) [Mass/Vol] 2.8 g/dL Normal 2.2-3.9 [facility] Comment on above: Order Comment: Y Performed By: #### L 3100.3425, L100.0100, L500.4050, L300.3900, L503.5510 ####[facility] [address] [place], [address] YUSEF RESULT,S Comment Normal . [facility] Comment on above: Order Comment: Y Result Comment: No m onoclonality detected. Performed By: #### L 3100.3425, L100.0100, L500.4050, L300.3900, L503.5510 ####[facility] [address] [place], [address] IMMUNOGLOB A QN 60 mg/dL Low 64-422 [facility] Comment on above: Order Comment: Y Performed By: #### L 3100.3425, L100.0100, L500.4050, L300.3900, L503.5510 ####[facility] [address] [place], [address] IMMUNOGLOB G QN 716 mg/dL Normal 586-1602 [facility] Comment on above: Order Comment: Y Performed By: #### L 3100.3425, L100.0100, L500.4050, L300.3900, L503.5510 ####[facility] [address] [place], [address] IMMUNOGLOB M QN 31 mg/dL Normal 26-217 [facility] Comment on above: Order Comment: Y Performed By: #### L 3100.3425, L100.0100, L500.4050, L300.3900, L503.5510 ####[facility] [address] [place], [address] M-Jose Not Observed Normal Not Observed [facility] Comment on above: Order Comment: Y Performed By: #### L 3100.3425, L100.0100, L500.4050, L300.3900, L503.5510 ####[facility] [address] [place], [address] NOTE: Comment Normal . [facility] Comment on above: Order Comment: Y Result Comment: Prot ein electrophoresis scan will follow via computer, mail, or research rn spec delivery. Performed at: [address] [id number] Law Reporter: Juanito Boone PhD, Phone: [phone] Performed By: #### L 3100.3425, L100.0100, L500.4050, L300.3900, L503.5510 ####[facility] [address] [place], [address] Protein [Mass/Vol] 6.6 g/dL Normal 6.0-8.5 [facility] Comment on above: Order Comment: Y Performed By: #### L 3100.3425, L100.0100, L500.4050, L300.3900, L503.5510 ####[facility] [address] [place], [address] CBC W Auto Differential pane l (Bld)on 07-19-2024 Basophils (Bld) [#/Vol] 0.06 10*3/uL Normal <0.11 [facility] Comment on above: Order Comment: Speci men Type: BLOOD SPECIMENOrdering Facility: [facility] Address: [address] [place] [address] Performed By: #### 5 7021-8 ####[facility] [id number] [place] [address] [place] Basophils/100 WBC (Bld) 1.2 % Normal [facility] Comment on above: Order Comment: Speci men Type: BLOOD SPECIMENOrdering Facility: [facility] Address: [address] [place] [address] Performed By: #### 5 7021-8 ####[facility] [id number] [place] [address] [place] Differential cell count method Nom (Bld) Auto Normal [facility] Comment on above: Order Comment: Speci men Type: BLOOD SPECIMENOrdering Facility: [facility] Address: [address] [place] [address] Performed By: #### 5 7021-8 ####[facility] [id number] [place] [address] [place] Eosinophils (Bld) [#/Vol] 0.11 10*3/uL Normal <0.46 [facility] Comment on above: Order Comment: Speci men Type: BLOOD SPECIMENOrdering Facility: [facility] Address: [address] [place], [place] [address] Performed By: #### 5 7021-8 ####[facility] MILLWNCLIA [id number] [place] [address] [place] Eosinophils/100 WBC (Bld) 2.1 % Normal [facility] Comment on above: Order Comment: Speci men Type: BLOOD SPECIMENOrdering Facility: [facility] Address: [address] [place] [address] Performed By: #### 5 7021-8 ####[facility] ERDIMITRISLIA [id number] [place] [address] [place] Erythrocyte distribution width (RBC) [Ratio] 12.6 % Normal 11.5-15.0 [facility] Comment on above: Order Comment: Speci men Type: BLOOD SPECIMENOrdering Facility: [facility] Address: [address] [place] [address] Performed By: #### 5 7021-8 ####[facility] TR[facility] [id number] [place] [address] [place] Hematocrit (Bld) [Volume fraction] 43.9 % Normal 36.0-46.0 [facility] Comment on above: Order Comment: Speci men Type: BLOOD SPECIMENOrdering Facility: [facility] Address: [address] [place] [address] Performed By: #### 5 7021-8 ####[facility] TR[facility] [id number] [place] [address] [place] Hemoglobin (Bld) [Mass/Vol] 14.9 g/dL Normal 11.5-15.5 [facility] Comment on above: Order Comment: Speci men Type: BLOOD SPECIMENOrdering Facility: [facility] Address: [address] [place] [address] Performed By: #### 5 7021-8 ####[facility] ERDIMITRISLIA [id number] [place] [address] [place] Immature granulocytes (Bld) [#/Vol] 10*3/uL Normal <0.10 [facility] Comment on above: Order Comment: Speci men Type: BLOOD SPECIMENOrdering Facility: [facility] Address: [address] [place] [address] Performed By: #### 5 7021-8 ####[facility] TR[facility] [id number] [place] [address] [place] Immature granulocytes/100 WBC (Bld) 0.2 % Normal [facility] Comment on above: Order Comment: Speci men Type: BLOOD SPECIMENOrdering Facility: [facility] Address: [address] [place] [address] Performed By: #### 5 7021-8 ####[facility] [id number] [place] [address] [place] Lymphocytes (Bld) [#/Vol] 1.30 10*3/uL Normal 1.00-4.00 [facility] Comment on above: Order Comment: Speci men Type: BLOOD SPECIMENOrdering Facility: [facility] Address: [address] [place] [address] Performed By: #### 5 7021-8 ####[facility] MIAMIA [id number] [place] [address] [place] Lymphocytes/100 WBC (Bld) 25.1 % Normal [facility] Comment on above: Order Comment: Speci men Type: BLOOD SPECIMENOrdering Facility: [facility] Address: [address] [place] [address] Performed By: #### 5 7021-8 ####[facility] [id number] [place] [address] [place] MCH (RBC) [Entitic mass] 29.6 pg Normal 26.0-34.0 [facility] Comment on above: Order Comment: Speci men Type: BLOOD SPECIMENOrdering Facility: [facility] Address: [address] [place] [address] Performed By: #### 5 7021-8 ####[facility] SHANIQUE [id number] [place] [address] [place] MCHC (RBC) [Mass/Vol] 33.9 g/dL Normal 30.5-36.0 [facility] Comment on above: Order Comment: Speci men Type: BLOOD SPECIMENOrdering Facility: [facility] Address: [address] [place], [place] [address] Performed By: #### 5 7021-8 ####[facility] AVELINADarleneMACK [id number] [place] [address] [place] MCV (RBC) [Entitic vol] 87.1 fL Normal 80.0-100.0 C [facility] Comment on above: Order Comment: Speci men Type: BLOOD SPECIMENOrdering Facility: [facility] Address: [address] [place] [address] Performed By: #### 5 7021-8 ####[facility] ERMACK [id number] [place] [address] [place] Monocytes (Bld) [#/Vol] 0.32 10*3/uL Normal <0.87 [facility] Comment on above: Order Comment: Speci men Type: BLOOD SPECIMENOrdering Facility: [facility] Address: [address] [place] [address] Performed By: #### 5 7021-8 ####[facility] ERDIMITRISLIA [id number] [place] [address] [place] Monocytes/100 WBC (Bld) 6.2 % Normal C [facility] Comment on above: Order Comment: Speci men Type: BLOOD SPECIMENOrdering Facility: [facility] Address: [address] [place] [address] Performed By: #### 5 7021-8 ####[facility] MILLWNCLIA [id number] [place] [address] [place] Neutrophils (Bld) [#/Vol] 3.38 10*3/uL Normal 1.45-7.50 [facility] Comment on above: Order Comment: Speci men Type: BLOOD SPECIMENOrdering Facility: [facility] Address: [address] [place] [address] Performed By: #### 5 7021-8 ####[facility] [id number] [place] [address] [place] Neutrophils/100 WBC (Bld) 65.2 % Normal [facility] Comment on above: Order Comment: Speci men Type: BLOOD SPECIMENOrdering Facility: [facility] Address: [address] [place] [address] Performed By: #### 5 7021-8 ####[facility] [id number] [place] [address] [place] Nucleated RBC (Bld) [#/Vol] 10*3/uL Normal <0.01 [facility] Comment on above: Order Comment: Speci men Type: BLOOD SPECIMENOrdering Facility: [facility] Address: [address] [place] [address] Performed By: #### 5 7021-8 ####[facility] TROYLIA [id number] [place] [address] [place] Nucleated RBC/100 WBC (Bld) [Ratio] 0.0 /100 WBC Normal [facility] Comment on above: Order Comment: Speci men Type: BLOOD SPECIMENOrdering Facility: [facility] Address: [address] [place] [address] Performed By: #### 5 7021-8 ####[facility] ERNCLIA [id number] [place] [address] [place] Platelet mean volume (Bld) [Entitic vol] 9.6 fL Normal 9.0-12.7 [facility] Comment on above: Order Comment: Speci men Type: BLOOD SPECIMENOrdering Facility: [facility] Address: [address] [place] [address] Performed By: #### 5 7021-8 ####[facility] AVELINAMODENANCLIA [id number] [place] [address] [place] Platelets (Bld) [#/Vol] 207 10*3/uL Normal 150-400 [facility] Comment on above: Order Comment: Speci men Type: BLOOD SPECIMENOrdering Facility: [facility] Address: [address] [place] [address] Performed By: #### 5 7021-8 ####[facility] ERNCLIA [id number] [place] [address] [place] RBC (Bld) [#/Vol] 5.04 10*6/uL Normal 3.90-5.20 [facility] Comment on above: Order Comment: Speci men Type: BLOOD SPECIMENOrdering Facility: [facility] Address: [address] [place] [address] Performed By: #### 5 7021-8 ####[facility] ERNCLIA [id number] [place] [address] [place] WBC (Bld) [#/Vol] 5.18 10*3/uL Normal 3.70-11.00 [facility] Comment on above: Order Comment: Speci men Type: BLOOD SPECIMENOrdering Facility: [facility] Address: [address] [place] [address] Performed By: #### 5 7021-8 ####[facility]NERTONWNCLIA [id number] [place] [address] [place] Ferritin SerPl-mCncon 2024 Ferritin [Mass/Vol] 39.5 ng/mL Normal 14.7-205.1 [facility] Comment on above: Order Comment: Speci men Type: BLOOD SPECIMENOrdering Facility: [facility] Address: [address] [place] [address] Performed By: #### 2 276-4 ####[facility] LABCLIA [id number] [facility]ENTERShara [address] STATES OF [facility] Absolute lymphocyte countOrd ered By: Pascual Fletcher on 07-16-2024 Lymphocytes Auto (Unsp spec) [#/Vol] 1.31 10*3/uL 0.83-4.51 [facility] Absolute neutrophil countOrd ered By: Pascual Fletcher on 07-16-2024 Neutrophils (Bld) [#/Vol] 4.1 10*3/uL 2.0-7.7 [facility] Albumin Elph [Mass/Vol]Order ed By: Pascual Fletcher on 07-16-2024 Albumin [Mass/Vol] 3.8 g/dL 2.9-4.4 [facility] Anion gap in Serum or Plasma Ordered By: Pascual Fletcher on 07-16-2024 Anion gap [Moles/Vol] 13 mmol/L 5-15 [facility] Automated lymphocyte count a s percentage of total leukocytesOrdered By: Pascual Fletcher on 07-16-2024 Lymphocytes/100 WBC Auto (Unsp spec) 22.0 % 19-41 [facility] BUN/creatinine ratioOrdered By: Pascual Fletcher on 07-16-2024 Urea nitrogen/Creatinine [Mass ratio] 19.0 mg/mg 10-20 [facility] Basophil percentageOrdered B y: Pascual Fletcher on 07-16-2024 Basophils/100 WBC (Bld) 1.0 % 0-1 [facility] Bilirubin, totalOrdered By: Pascual Fletcher on 07-16-2024 Bilirubin [Mass/Vol] 0.65 mg/dL Normal 0.00-1.30 [facility] Comment on above: Performed By: #### L 3100.3425, L100.0100, L500.4050, L300.3900, L503.5510 ####[facility] [address] [place], [address] CBC W/Diff, Automatedon 05-0 PLT EST A Normal ADEQ [facility] Comment on above: Performed By: #### L 3100.3425, L100.0100, L500.4050, L300.3900, L503.5510 ####[facility] [address] [place], [address] PLT MORPH CLUMPED Normal [facility] Comment on above: Performed By: #### L 3100.3425, L100.0100, L500.4050, L300.3900, L503.5510 ####[facility] [address] [place], [address] Carbon dioxide, total [Moles /volume] in Central venous bloodOrdered By: Pascual Fletcher on 07-16-2024 CO2 [Moles/Vol] 20.8 mmol/L Low 21.0-32.0 [facility] Comment on above: Performed By: #### L 3100.3425, L100.0100, L500.4050, L300.3900, L503.5510 ####[facility] [address] [place], [address] Chloride assayOrdered By: Ra subhash Fletcher on 07-16-2024 Chloride [Moles/Vol] 102 mmol/L Normal 98-108 [facility] Comment on above: Performed By: #### L 3100.3425, L100.0100, L500.4050, L300.3900, L503.5510 ####[facility] [address] [place], [address] Comprehensive Metabolic Prof ilon 07-16-2024 ALK PHOS 73 U/L Normal 35-104 [facility] Comment on above: Performed By: #### L 3100.3425, L100.0100, L500.4050, L300.3900, L503.5510 ####[facility] [address] [place], [address] BUN/CRE 19.0 RATIO Normal 10-20 [facility] Comment on above: Performed By: #### L 3100.3425, L100.0100, L500.4050, L300.3900, L503.5510 ####[facility] [address] [place], [address] GAP 13 Normal 5-15 [facility] Comment on above: Performed By: #### L 3100.3425, L100.0100, L500.4050, L300.3900, L503.5510 ####[facility] [address] [place], [address] Globulin (S) [Mass/Vol] 2.6 g/dL Normal 2.2-4.2 [facility] Comment on above: Performed By: #### L 3100.3425, L100.0100, L500.4050, L300.3900, L503.5510 ####[facility] [address] [place], [address] Potassium [Moles/Vol] 4.2 mmol/L Normal 3.3-5.1 [facility] Comment on above: Result Comment: Hemo lysis present, Results??could be affected. ?? Performed By: #### L 3100.3425, L100.0100, L500.4050, L300.3900, L503.5510 ####[facility] [address] [place], [address] T PROT 6.8 g/dL Normal 5.9-8.4 [facility] Comment on above: Performed By: #### L 3100.3425, L100.0100, L500.4050, L300.3900, L503.5510 ####[facility] [address] [place], [address] Comprehensive Metabolic Prof ilOrdered By: Pascual Fletcher on 07-16-2024 AST [Catalytic activity/Vol] 22 U/L Normal <=31 [facility] Comment on above: Hemolysis present, R esults could be affected. Result Comment: Hemo lysis present, Results??could be affected. ?? Performed By: #### L 3100.3425, L100.0100, L500.4050, L300.3900, L503.5510 ####[facility] [address] [place], [place], [address] Eosinophil percentageOrdered By: Pascual Fletcher on 07-16-2024 Eosinophils/100 WBC (Bld) 1.0 % 0-5 [facility] Erythrocyte distribution wid th ratioOrdered By: Pascual Fletcher on 07-16-2024 Erythrocyte distribution width (RBC) [Ratio] 12.4 % 11.6-14.6 [facility] Erythrocyte distribution wid th standard deviationOrdered By: Pascual Fletcher on 07-16-2024 Erythrocyte distribution width (RBC) [Ratio] 39.8 fl 35.1-43.9 [facility] Gastroenterology Visit Repor ton 07-16-2024 Gastroenterology Visit Report [facility] [address] [place] [address] OFFICE VISIT Date of Service: 07/16/24 MR#: [id number] Acct: [id number] Name: JAIMEJULIO CEDER OMALLEY Rep #: [id number] : 1945 Provider: Pascual Fletcher DO Age/Sex: 79/F Location: [facility] Status: Signed Intake Vital Signs 06/30/24 14:34 [...] you fallen in the past year?: No [facility] Medical History History of thyroid nodule [...] the patie (more content not included)... Normal [facility] Glomerular filtration rate ( GFR) estimation/1.73 sq m using serum, plasma, or whole bOrdered By: Pascual Fletcher on 07-16-2024 GFR/1.73 sq M.predicted among non-blacks MDRD (S/P/Bld) [Vol rate/Area] 79 mL/min/{1.73_m2} Normal >60 [facility] Comment on above: mL/min/1.73m2 CKD-EP I Creatinine Equation (2020) Result Comment: mL/m in/1.73m2 CKD-EPI Creatinine Equation (2020) Performed By: #### L 3100.3425, L100.0100, L500.4050, L300.3900, L503.5510 ####[facility] [address] [place], [place], [id number] Hematocrit Auto (Bld) [Volum e fraction]Ordered By: Pascual Fletcher on 07-16-2024 Hematocrit (Bld) [Volume fraction] 47.1 % High 37-47 [facility] Hemoglobin measurementOrdere d By: Pascual Fletcher on 07-16-2024 Hemoglobin (Bld) [Mass/Vol] 15.9 g/dL High 12.0-15.0 [facility] Immature granulocytes/100 WB C Auto (Bld)Ordered By: Pascual Fletcher on 07-16-2024 Immature granulocytes/100 WBC (Bld) 0.300 % 0.0-0.9 [facility] Comment on above: IG% - Immature Granu locytes (promyelocytes, myelocytes and metamyelocytes) > 1% indicates that a LEFT SHIFT is Present. International normalized rat io (INR) calculationOrdered By: Pascual Fletcher on 07-16-2024 INR Coag (Bld) [Relative time] 1.0 {INR} [facility] Interpretation of serum or p lasma protein pattern by immunofixation (narrative resultOrdered By: Pascual Fletcher on 07-16-2024 Protein Fractions Immunofixation Art [Interp] Not Observed g/dL Not Observed [facility] MCV (mean corpuscular volume ) determinationOrdered By: Pascual Fletcher on 07-16-2024 MCV (RBC) [Entitic vol] 88.0 fL 81-99 [facility] Mean corpuscular hemoglobin (MCH) determinationOrdered By: Pascual Fletcher on 07-16-2024 MCH (RBC) [Entitic mass] 29.7 pg 27.0-32.0 [facility] Mean corpuscular hemoglobin concentration (MCHC) determinationOrdered By: Pascual Fletcher on 07-16-2024 MCHC (RBC) [Mass/Vol] 33.8 g/dL 32-36 [facility] Mean platelet volume determi nationOrdered By: Pascual Fletcher on 07-16-2024 Platelet mean volume (Bld) [Entitic vol] 10.5 fL 6.2-12.0 [facility] Monocyte percentageOrdered B y: Pascual Fletcher on 07-16-2024 Monocytes/100 WBC (Bld) 6.5 % 0-10 [facility] Neutrophil percentageOrdered By: Pascual Fletcher on 07-16-2024 Neutrophils/100 WBC (Bld) 69.2 % 47-70 [facility] No Panel InformationOrdered By: Pascual Fletcher on 07-16-2024 Addendum Document Comment . [facility] Comment on above: Protein electrophore sis scan will follow via computer,mail, or research rn spec delivery.Performed at: [facility] [id number] Director: Juanito Boone PhD, Phone: [phone] Nucleated red blood cell per centageOrdered By: Pascual Fletcher on 07-16-2024 Nucleated RBC/100 WBC (Bld) [Ratio] 0 % 0-5 [facility] Platelet countOrdered By: Ra subhash Fletcher on 07-16-2024 Platelet count TNP [facility] Comment on above: Test not performed Platelet estimateOrdered By: Pascual Fletcher on 07-16-2024 Platelets LM Ql (Bld) A ADEQ [facility] Platelet morphologyOrdered B y: Pascual Fletcher on 07-16-2024 Platelet morphology finding Nom (Bld) CLUMPED [facility] Potassium measurement (mass/ volume)Ordered By: Pascual Fletcher on 07-16-2024 Potassium (Unsp spec) [Mass/Vol] 4.2 mmol/L 3.3-5.1 [facility] Comment on above: Hemolysis present, R esults could be affected. Prothrombin Time w/INRon INR Coag (PPP) [Relative time] 1.0 {INR} Normal [facility] Comment on above: Performed By: #### L 3100.3425, L100.0100, L500.4050, L300.3900, L503.5510 #### [facility] [address] [place], [place], [address] Prothrombin timeOrdered By: Pascual Fletcher on 07-16-2024 PT Coag (PPP) [Time] 13.1 s Normal 11.7-14.9 [facility] Comment on above: Performed By: #### L 3100.3425, L100.0100, L500.4050, L300.3900, L503.5510 #### [facility] [address] [place], [address] RBC Auto (Bld) [#/Vol]Ordere d By: Pascual Fletcher on 07-16-2024 RBC (Bld) [#/Vol] 5.35 10*6/uL 4.2-5.4 [facility] Serum creatinine measurement (mass/volume)Ordered By: Pascual Fletcher on 07-16-2024 Creatinine [Mass/Vol] 0.76 mg/dL Normal 0.70-1.20 [facility] Comment on above: Performed By: #### L 3100.3425, L100.0100, L500.4050, L300.3900, L503.5510 ####[facility] [address] [place], [address] Serum globulin measurement ( mass/volume)Ordered By: Pascual Fletcher on 07-16-2024 Globulin (S) [Mass/Vol] 2.8 g/dL 2.2-3.9 [facility] Serum glucose measurement (m ass/volume)Ordered By: Pascual Fletcher on 07-16-2024 Glucose [Mass/Vol] 96 mg/dL Normal 70-99 [facility] Comment on above: Performed By: #### L 3100.3425, L100.0100, L500.4050, L300.3900, L503.5510 ####[facility] [address] [place], [address] Serum or plasma IgA measurem ent (mass/volume)Ordered By: Pascual Fletcher on 07-16-2024 IgA [Mass/Vol] 60 mg/dL Low 64-422 [facility] Serum or plasma IgG measurem ent (mass/volume)Ordered By: Pascual Fletcher on 07-16-2024 IgG [Mass/Vol] 716 mg/dL [phone] [facility] Serum or plasma alanine belle otransferase (ALT) measurementOrdered By: Pascual Fletcher on 07-16-2024 ALT [Catalytic activity/Vol] 9 U/L Normal <=34 [facility] Comment on above: Performed By: #### L 3100.3425, L100.0100, L500.4050, L300.3900, L503.5510 ####[facility] [address] [place], [address] Serum or plasma albumin chapis urement (mass/volume)Ordered By: Pascual Fletcher on 07-16-2024 Albumin [Mass/Vol] 4.2 g/dL Normal 3.4-4.8 [facility] Comment on above: Performed By: #### L 3100.3425, L100.0100, L500.4050, L300.3900, L503.5510 ####[facility] [address] [place], [address] Serum or plasma albumin/glob ulin mass ratioOrdered By: Pascual Fletcher on 07-16-2024 Albumin/Globulin [Mass ratio] 1.6 {ratio} Normal 0.9-2.4 [facility] Comment on above: Performed By: #### L 3100.3425, L100.0100, L500.4050, L300.3900, L503.5510 ####[facility] [address] [facility] [place], [place], [address] Serum or plasma alkaline mary sphatase measurementOrdered By: Pascual Fletcher on 07-16-2024 ALP [Catalytic activity/Vol] 73 U/L 35-104 [facility] Serum or plasma alpha 1 glob ulin measurement by electrophoresis (mass/volume)Ordered By: Pascual Fletcher on 07-16-2024 Alpha 1 globulin Elph [Mass/Vol] 0.3 g/dL 0.0-0.4 [facility] Alpha 1 globulin Elph [Mass/Vol] 0.8 g/dL 0.4-1.0 [facility] Serum or plasma beta globuli n measurement by electrophoresis (mass/volume)Ordered By: Pascual Fletcher on 07-16-2024 Beta globulin Elph [Mass/Vol] 1.0 g/dL 0.7-1.3 [facility] Serum or plasma calcium chapis urement (mass/volume)Ordered By: Pascual Fletcher on 07-16-2024 Calcium [Mass/Vol] 9.9 mg/dL Normal 7.6-11.0 [facility] Comment on above: Performed By: #### L 3100.3425, L100.0100, L500.4050, L300.3900, L503.5510 ####[facility] [address] [facility] [place], [place], [address] Serum or plasma gamma globul in measurement by electrophoresis (mass/volume)Ordered By: Pascual Flecther on 07-16-2024 Gamma globulin Elph [Mass/Vol] 0.7 g/dL 0.4-1.8 [facility] Serum or plasma immunoelectr ophoresis interpretation (nominal result)Ordered By: Pascual Fletcher on 07-16-2024 Interpretation IEP [Interp] Comment . [facility] Comment on above: No monoclonality det ected. Serum or plasma protein chapis urement (mass/volume)Ordered By: Pascual Fletcher on 07-16-2024 Protein [Mass/Vol] 6.6 g/dL 6.0-8.5 [facility] Serum or plasma urea nitroge n measurement (mass/volume)Ordered By: Pascual Fletcher on 07-16-2024 Urea nitrogen [Mass/Vol] 14 mg/dL Normal 4-19 [facility] Comment on above: Performed By: #### L 3100.3425, L100.0100, L500.4050, L300.3900, L503.5510 ####[facility] [address] [place], [address] Sodium levelOrdered By: Adria Burton on 07-16-2024 Sodium [Moles/Vol] 136 mmol/L Normal 133-145 [facility] Comment on above: Performed By: #### L 3100.3425, L100.0100, L500.4050, L300.3900, L503.5510 ####[facility] [address] [place], [place], [address] Total proteinOrdered By: Rolf Fletcher on 07-16-2024 Protein [Mass/Vol] 6.8 g/dL 5.9-8.4 [facility] Venous blood ammonia measure mentOrdered By: Pascual Fletcher on 07-16-2024 Ammonia (P) [Moles/Vol] 29.0 umol/L Normal 11-51 [facility] Comment on above: Performed By: #### L 3100.3425, L100.0100, L500.4050, L300.3900, L503.5510 #### [facility] [address] [place], [place], [address] White blood cell (WBC) count Ordered By: Pascual Fletcher on 07-16-2024 WBC (Bld) [#/Vol] 6.0 10*3/uL 4.4-11.0 [facility] /Irina 06-30-2024 /SEGUNDO.JOHN [facility] [address] [place], [place] [address] OFFICE VISIT Date of Service: 06/30/24 MR#: [id number] Acct: [id number] Name: EDER SEVERINO Rep #: [id number] : 1945 Provider: Dr. 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 Normal [facility] OCT OPTIC NERVE CIRRUS OU (B OTH EYES)on 06-16-2024 [facility] Radiology Study observation (narrative) [facility] 25(OH)D3 SerPl-ncon 2024 25-hydroxyvitamin D3 [Mass/Vol] 115.0 ng/mL High 31.0-80.0 [facility] Comment on above: Order Comment: Speci men Type: BLOOD SPECIMENOrdering Facility: [facility] Address: [address] [place] [address] Result Comment: Clas sification of 25 [place] Vitamin D status: Deficiency/Insufficiency: < or = 30 ng/ml. Sufficiency/Optimal Levels: 31-80 ng/mL Toxicity: > 100 ng/mL. Test performed by chemiluminescent immunoassay. Performed By: #### 1 989-3 ####[facility] LABCLIA [id number] [place] [address] [place] CNOVon 05-27-2024 CNOV Office Visit (MEDFMN ) EDER SEVERINO ([id number]) 1945 F Date Time Provider Department 05/27/24 2:00 PM AIRAM ALVARADO [facility] During your visit today, we recorded the following information about you: Pulse Blood pressure Weight Height 68/minute 159/55 68.8 kg 1.651 m Airam Alvarado APRN.BATTERY TESTER 05/27/2024 3:14 PM Signed FUNCTIONAL MEDICINE INITIAL ASSESSMENT Patient: Eder Severino ALLERGIES Allergen Reactions Sulfa (Sulfonamide * Anaphylaxis [place] Seed Rash Advil [Ibuprofen] Intolerance along with [...] mouth once daily. OTC PRODUCT [place]- r/t [facility] study MAGNESIUM ORAL Take 300 mg [...] removal - single site surgery performed at [facility] by Dr. Castro - under thoracic epidural [...] visit today. Accompanied by . Lives in [place], [place] HPI: This is an 79yo female presenting for a functional medicine consult with complaints of: Brain fog x 1 year Sometimes good days, other days really (more content not included)... Normal [facility] CBC W Auto Differential pane l (Bld)on 04-26-2024 Basophils (Bld) [#/Vol] 0.06 10*3/uL Normal <0.11 [facility] Comment on above: Order Comment: Speci men Type: BLOOD SPECIMEN [facility] Address: [address] [place] [address] Performed By: #### 5 7021-8 #### [facility] CLIA [id number] [address] [place] [address] [place] Basophils/100 WBC (Bld) 1.2 % Normal C [facility] Comment on above: Order Comment: Speci men Type: BLOOD SPECIMEN [facility] Address: [address] [place] [address] Performed By: #### 5 7021-8 #### [facility] CLIA [id number] [address] [place] [address] [place] Differential cell count method Nom (Bld) Auto Normal [facility] Comment on above: Order Comment: Speci men Type: BLOOD SPECIMEN [facility] Address: [address] [place] [address] Performed By: #### 5 7021-8 #### [facility] CLIA [id number] [address] [place] [address] [place] Eosinophils (Bld) [#/Vol] 0.09 10*3/uL Normal <0.46 [facility] Comment on above: Order Comment: Speci men Type: BLOOD SPECIMEN [facility] Address: [address] [place] [address] Performed By: #### 5 7021-8 #### [facility] CLIA [id number] [address] [place] [address] [place] Eosinophils/100 WBC (Bld) 1.8 % Normal [facility] Comment on above: Order Comment: Speci men Type: BLOOD SPECIMEN [facility] Address: [address] [place] [address] Performed By: #### 5 7021-8 #### [facility] CLIA [id number] [address] [place] [address] [place] Erythrocyte distribution width (RBC) [Ratio] 12.3 % Normal 11.5-15.0 [facility] Comment on above: Order Comment: Speci men Type: BLOOD SPECIMEN [facility] Address: [address] [place] [address] Performed By: #### 5 7021-8 #### [facility] CLIA [id number] [address] [place] [address] [place] Hematocrit (Bld) [Volume fraction] 44.8 % Normal 36.0-46.0 [facility] Comment on above: Order Comment: Speci men Type: BLOOD SPECIMEN [facility] Address: [address] [place] [address] Performed By: #### 5 7021-8 #### [facility] CLIA [id number] [address] [place] [address] [place] Hemoglobin (Bld) [Mass/Vol] 15.6 g/dL High 11.5-15.5 [facility] Comment on above: Order Comment: Speci men Type: BLOOD SPECIMEN [facility] Address: [address] [place] [address] Performed By: #### 5 7021-8 #### [facility] CLIA [id number] [address] [place] [address] [place] Immature granulocytes (Bld) [#/Vol] 10*3/uL Normal <0.10 [facility] Comment on above: Order Comment: Speci men Type: BLOOD SPECIMEN [facility]ing Facility: [facility] Address: [address] [place] [address] Performed By: #### 5 7021-8 #### [facility] CLIA [id number] [address] [place] [address] [place] Immature granulocytes/100 WBC (Bld) 0.2 % Normal [facility] Comment on above: Order Comment: Speci men Type: BLOOD SPECIMEN [facility] Facility[facility] Address: [address] [place] [address] Performed By: #### 5 7021-8 #### [facility] CLIA [id number] [address] [place] [address] [place] Lymphocytes (Bld) [#/Vol] 1.19 10*3/uL Normal 1.00-4.00 [facility] Comment on above: Order Comment: Speci men Type: BLOOD SPECIMEN [facility]ing Facility: [facility] Address: [address] [place] [address] Performed By: #### 5 7021-8 #### [facility] CLIA [id number] [address] [place] [address] [place] Lymphocytes/100 WBC (Bld) 23.8 % Normal [facility] Comment on above: Order Comment: Speci men Type: BLOOD SPECIMEN Ordering Facility: [facility] Address: [address] [place] [address] Performed By: #### 5 7021-8 #### [facility] CLIA [id number] [address] [place] [address] [place] MCH (RBC) [Entitic mass] 30.3 pg Normal 26.0-34.0 [facility] Comment on above: Order Comment: Speci men Type: BLOOD SPECIMEN Ordering Facility: [facility] Address: [address] [place] [address] Performed By: #### 5 7021-8 #### [facility] CLIA [id number] [address] [place] [address] [place] MCHC (RBC) [Mass/Vol] 34.8 g/dL Normal 30.5-36.0 [facility] Comment on above: Order Comment: Speci men Type: BLOOD SPECIMEN Ordering Facility: [facility] Address: [address] [place] [address] Performed By: #### 5 7021-8 #### [facility] CLIA [id number] [address] [place] [address] [place] MCV (RBC) [Entitic vol] 87.0 fL Normal 80.0-100.0 [facility] Comment on above: Order Comment: Speci men Type: BLOOD SPECIMEN Ordering Facility: [facility] Address: [address] [place] [address] Performed By: #### 5 7021-8 #### [facility] CLIA [id number] [address] [place] [address] [place] Monocytes (Bld) [#/Vol] 0.32 10*3/uL Normal <0.87 [facility] Comment on above: Order Comment: Speci men Type: BLOOD SPECIMEN Ordering Facility: [facility] Address: [address] [place] [address] Performed By: #### 5 7021-8 #### [facility] CLIA [id number] [address] [place] [address] [place] Monocytes/100 WBC (Bld) 6.4 % Normal [facility] Comment on above: Order Comment: Speci men Type: BLOOD SPECIMEN Ordering Facility: [facility] Address: [address] [place] [address] Performed By: #### 5 7021-8 #### [facility] CLIA [id number] [address] [place] [address] [place] Neutrophils (Bld) [#/Vol] 3.33 10*3/uL Normal 1.45-7.50 [facility] Comment on above: Order Comment: Speci men Type: BLOOD SPECIMEN Ordering Facility: [facility] Address: [address] [place] [address] Performed By: #### 5 7021-8 #### [facility] CLIA [id number] [address] [place] [address] [place] Neutrophils/100 WBC (Bld) 66.6 % Normal [facility] Comment on above: Order Comment: Speci men Type: BLOOD SPECIMEN Ordering Facility: [facility] Address: [address] [place] [address] Performed By: #### 5 7021-8 #### [facility] CLIA [id number] [address] [place] [address] [place] Nucleated RBC (Bld) [#/Vol] 10*3/uL Normal <0.01 [facility] Comment on above: Order Comment: Speci men Type: BLOOD SPECIMEN Ordering Facility: [facility] Address: [address] [place] [address] Performed By: #### 5 7021-8 #### [facility] CLIA [id number] [address] [place] [address] [place] Nucleated RBC/100 WBC (Bld) [Ratio] 0.0 /100 WBC Normal [facility] Comment on above: Order Comment: Speci men Type: BLOOD SPECIMEN Ordering Facility: [facility] Address: [address] [place] [address] Performed By: #### 5 7021-8 #### [facility] CLIA [id number] [address] [place] [address] [place] Platelet mean volume (Bld) [Entitic vol] 9.5 fL Normal 9.0-12.7 [facility] Comment on above: Order Comment: Speci men Type: BLOOD SPECIMEN Ordering Facility: [facility] Address: [address] [place] [address] Performed By: #### 5 7021-8 #### [facility] CLIA [id number] [address] [place] [address] [place] Platelets (Bld) [#/Vol] 188 10*3/uL Normal 150-400 [facility] Comment on above: Order Comment: Speci men Type: BLOOD SPECIMEN Ordering Facility: [facility] Address: [address] [place] [address] Performed By: #### 5 7021-8 #### [facility] CLIA [id number] [address] [place] [address] [place] RBC (Bld) [#/Vol] 5.15 10*6/uL Normal 3.90-5.20 [facility] Comment on above: Order Comment: Speci men Type: BLOOD SPECIMEN Ordering Facility: [facility] Address: [address] [place] [address] Performed By: #### 5 7021-8 #### [facility] CLIA [id number] [address] [place] [address] [place] WBC (Bld) [#/Vol] 5.00 10*3/uL Normal 3.70-11.00 [facility] Comment on above: Order Comment: Speci men Type: BLOOD SPECIMEN Ordering Facility: [facility] Address: [address] [place] [address] Performed By: #### 5 7021-8 #### [facility] CLIA [id number] [address] [place] [address] [place] Ferritin SerPl-mCncon 2024 Ferritin [Mass/Vol] 44.3 ng/mL Normal 14.7-205.1 [facility] Comment on above: Order Comment: Speci men Type: BLOOD SPECIMENOrdering Facility: [facility] Address: [address] [place] [address] Performed By: #### 2 276-4 ####[facility] LABORATORYCLIA [id number] [place] [address] [facility] CNOVon 04-19-2024 CNOV Office Visit ([id number] ) PATTIEDER JOHNSON ([id number]) 1945 F Date Time Provider Department 04/19/24 [...] defined for this encounter. PCP: Katarina Medina [facility] [address] CEREBROVASCULAR HISTORY History of Event: I am [...] We will be getting your records from [place] and we will let you know if [...] removal - single site surgery performed at [facility] by Dr. Castro - under thoracic epidural and sedation. STRTCTC LOCLZJ GID BREAST BX/NEEDLE PLACEMENT Right 02/16/2018 Rt stereotactic vaccuum assisted core biopsy FAMILY HISTORY (more content not included)... Normal [facility] 25(OH)D3 SerPl-mCncon 2024 25-hydroxyvitamin D3 [Mass/Vol] 125.0 ng/mL High 31.0-80.0 [facility] Comment on above: Order Comment: Speci men Type: BLOOD SPECIMENOrdering Facility: [facility] Address: [address] [place] [address] Performed By: #### 1 989-3 ####[facility] LABCL[facility] [id number] [address] [place] MR/Irina 02-11-2024 MR/DONA [facility] [address] [place] [address] OFFICE VISIT Date of Service: 02/11/24 MR#: [id number] Acct: [id number] Name: EDER SEVERINO Rep #: [id number] : [id number] Provider: Dr. 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 Normal [facility] CBC W Auto Differential pane l (Bld)on 02-02-2024 Basophils (Bld) [#/Vol] 0.04 10*3/uL [facility] Basophils/100 WBC (Bld) 0.6 % C [facility] Differential cell count method Nom (Bld) Auto [facility] Eosinophils (Bld) [#/Vol] 0.10 10*3/uL [facility] Eosinophils/100 WBC (Bld) 1.5 % [facility] Erythrocyte distribution width (RBC) [Ratio] 12.9 % 11.5 - 15.0 % [facility] Hematocrit (Bld) [Volume fraction] 44.5 % 36.0 - 46.0 % [facility] Hemoglobin (Bld) [Mass/Vol] 15.3 g/dL 11.5 - 15.5 g/dL [facility] Immature granulocytes (Bld) [#/Vol] [facility] Immature granulocytes/100 WBC (Bld) 0.2 % [facility] Lymphocytes (Bld) [#/Vol] 1.33 10*3/uL [facility] Lymphocytes/100 WBC (Bld) 20.4 % [facility] MCH (RBC) [Entitic mass] 30.1 pg 26. 0 - 34.0 pg [facility] MCHC (RBC) [Mass/Vol] 34.4 g/dL 30.5 - 36.0 g/dL [facility] MCV (RBC) [Entitic vol] 87.6 fL 80.0 - 100.0 fL [facility] Monocytes (Bld) [#/Vol] 0.46 10*3/uL [facility] Monocytes/100 WBC (Bld) 7.0 % C [facility] Neutrophils (Bld) [#/Vol] 4.59 10*3/uL [facility] Neutrophils/100 WBC (Bld) 70.3 % [facility] Nucleated RBC (Bld) [#/Vol] [facility] Nucleated RBC/100 WBC (Bld) [Ratio] 0.0 % /100 WBC [facility] Platelet mean volume (Bld) [Entitic vol] 9.8 fL 9.0 - 12.7 fL [facility] Platelets (Bld) [#/Vol] 196 10*3/uL [facility] RBC (Bld) [#/Vol] 5.08 10*6/uL 3.90 - 5.2 0 m/uL [facility] WBC (Bld) [#/Vol] 6.53 10*3/uL [facility] Basophils (Bld) [#/Vol] 0.04 10*3/uL Normal <0.11 [facility] Comment on above: Order Comment: Speci men Type: BLOOD SPECIMENOrdering Facility: [facility] Address: [address] [place] [address] Performed By: #### 5 7021-8 ####[facility] [id number] [place] [address] [place] Basophils/100 WBC (Bld) 0.6 % Normal [facility] Comment on above: Order Comment: Speci men Type: BLOOD SPECIMENOrdering Facility: [facility] Address: [address] [place] [address] Performed By: #### 5 7021-8 ####[facility] [id number] [place] [address] [place] Differential cell count method Nom (Bld) Auto Normal [facility] Comment on above: Order Comment: Speci men Type: BLOOD SPECIMENOrdering Facility: [facility] Address: [address] [place] [address] Performed By: #### 5 7021-8 ####[facility] MIAMIA [id number] [place] [address] [place] Eosinophils (Bld) [#/Vol] 0.10 10*3/uL Normal <0.46 [facility] Comment on above: Order Comment: Speci men Type: BLOOD SPECIMENOrdering Facility: [facility] Address: [address] [place] [address] Performed By: #### 5 7021-8 ####[facility] AVELINAANDIELIA [id number] [place] [address] [place] Eosinophils/100 WBC (Bld) 1.5 % Normal [facility] Comment on above: Order Comment: Speci men Type: BLOOD SPECIMENOrdering Facility: [facility] Address: [address] [place] [address] Performed By: #### 5 7021-8 ####[facility] ERDIMITRISLIA [id number] [place] [address] [place] Erythrocyte distribution width (RBC) [Ratio] 12.9 % Normal 11.5-15.0 [facility] Comment on above: Order Comment: Speci men Type: BLOOD SPECIMENOrdering Facility: [facility] Address: [address] [place] [address] Performed By: #### 5 7021-8 ####[facility] TROYL[facility] [id number] [place] [address] [place] Hematocrit (Bld) [Volume fraction] 44.5 % Normal 36.0-46.0 [facility] Comment on above: Order Comment: Speci men Type: BLOOD SPECIMENOrdering Facility: [facility] Address: [address] [place] [address] Performed By: #### 5 7021-8 ####[facility] ERNCLIA [id number] [place] [address] [place] Hemoglobin (Bld) [Mass/Vol] 15.3 g/dL Normal 11.5-15.5 [facility] Comment on above: Order Comment: Speci men Type: BLOOD SPECIMENOrdering Facility: [facility] Address: [address] [place] [address] Performed By: #### 5 7021-8 ####[facility] POINTWNCLIA [id number] [place] [address] [place] Immature granulocytes (Bld) [#/Vol] 10*3/uL Normal <0.10 [facility] Comment on above: Order Comment: Speci men Type: BLOOD SPECIMENOrdering Facility: [facility] Address: [address] [place] [address] Performed By: #### 5 7021-8 ####[facility] [id number] [place] [address] [place] Immature granulocytes/100 WBC (Bld) 0.2 % Normal [facility] Comment on above: Order Comment: Speci men Type: BLOOD SPECIMENOrdering Facility: [facility] Address: [address] [place] [address] Performed By: #### 5 7021-8 ####[facility] [id number] [place] [address] [place] Lymphocytes (Bld) [#/Vol] 1.33 10*3/uL Normal 1.00-4.00 [facility] Comment on above: Order Comment: Speci men Type: BLOOD SPECIMENOrdering Facility: [facility] Address: [address] [place] [address] Performed By: #### 5 7021-8 ####[facility] [id number] [place] [address] [place] Lymphocytes/100 WBC (Bld) 20.4 % Normal [facility] Comment on above: Order Comment: Speci men Type: BLOOD SPECIMENOrdering Facility: [facility] Address: [address] [place] [address] Performed By: #### 5 7021-8 ####[facility] [id number] [place] [address] [place] MCH (RBC) [Entitic mass] 30.1 pg Normal 26.0-34.0 [facility] Comment on above: Order Comment: Speci men Type: BLOOD SPECIMENOrdering Facility: [facility] Address: [address] [place] [address] Performed By: #### 5 7021-8 ####[facility] [id number] [place] [address] [place] MCHC (RBC) [Mass/Vol] 34.4 g/dL Normal 30.5-36.0 [facility] Comment on above: Order Comment: Speci men Type: BLOOD SPECIMENOrdering Facility: [facility] Address: [address] [place], [place] [address] Performed By: #### 5 7021-8 ####[facility] [id number] [place] [address] [place] MCV (RBC) [Entitic vol] 87.6 fL Normal 80.0-100.0 [facility] Comment on above: Order Comment: Speci men Type: BLOOD SPECIMENOrdering Facility: [facility] Address: [address] [place] [address] Performed By: #### 5 7021-8 ####[facility] [id number] [place] [address] [place] Monocytes (Bld) [#/Vol] 0.46 10*3/uL Normal <0.87 [facility] Comment on above: Order Comment: Speci men Type: BLOOD SPECIMENOrdering Facility: [facility] Address: [address] [place] [address] Performed By: #### 5 7021-8 ####[facility] [id number] [place] [address] [place] Monocytes/100 WBC (Bld) 7.0 % Normal [facility] Comment on above: Order Comment: Speci men Type: BLOOD SPECIMENOrdering Facility: [facility] Address: [address] [place] [address] Performed By: #### 5 7021-8 ####[facility] MILLTOWNCLIA [id number] [place] [address] [place] Neutrophils (Bld) [#/Vol] 4.59 10*3/uL Normal 1.45-7.50 [facility] Comment on above: Order Comment: Speci men Type: BLOOD SPECIMENOrdering Facility: [facility] Address: [address] [place] [address] Performed By: #### 5 7021-8 ####[facility] MILLWNCLIA [id number] [place] [address] [place] Neutrophils/100 WBC (Bld) 70.3 % Normal [facility] Comment on above: Order Comment: Speci men Type: BLOOD SPECIMENOrdering Facility: [facility] Address: [address] [place] [address] Performed By: #### 5 7021-8 ####[facility]CL[facility] [id number] [place] [address] [place] Nucleated RBC (Bld) [#/Vol] 10*3/uL Normal <0.01 [facility] Comment on above: Order Comment: Speci men Type: BLOOD SPECIMENOrdering Facility: [facility] Address: [address] [place] [address] Performed By: #### 5 7021-8 ####[facility] MILLTOWNCLIA [id number] [place] [address] [place] Nucleated RBC/100 WBC (Bld) [Ratio] 0.0 /100 WBC Normal [facility] Comment on above: Order Comment: Speci men Type: BLOOD SPECIMENOrdering Facility: [facility] Address: [address] [place] [address] Performed By: #### 5 7021-8 ####[facility] MILLWNCLIA [id number] [place] [address] [place] Platelet mean volume (Bld) [Entitic vol] 9.8 fL Normal 9.0-12.7 [facility] Comment on above: Order Comment: Speci men Type: BLOOD SPECIMENOrdering Facility: [facility] Address: [address] [place] [address] Performed By: #### 5 7021-8 ####[facility] ALEJANDROA [id number] [place] [address] [place] Platelets (Bld) [#/Vol] 196 10*3/uL Normal 150-400 [facility] Comment on above: Order Comment: Speci men Type: BLOOD SPECIMENOrdering Facility: [facility] Address: [address] [place] [address] Performed By: #### 5 7021-8 ####[facility] ERDIMITRISSHAHRZADA [id number] [place] [address] [place] RBC (Bld) [#/Vol] 5.08 10*6/uL Normal 3.90-5.20 [facility] Comment on above: Order Comment: Speci men Type: BLOOD SPECIMENOrdering Facility: [facility] Address: [address] [place] [address] Performed By: #### 5 7021-8 ####[facility] AVELINAMODENADIMITRISSHAHRZADA [id number] [place] [address] [place] WBC (Bld) [#/Vol] 6.53 10*3/uL Normal 3.70-11.00 [facility] Comment on above: Order Comment: Speci men Type: BLOOD SPECIMENOrdering Facility: [facility] Address: [address] [place] [address] Performed By: #### 5 7021-8 ####[facility] ERNCLIA [id number] [place] [address] [place] Comprehensive metabolic 2000 panelOrdered By: Wanda Eugene on 02-02-2024 Albumin [Mass/Vol] 4.2 g/dL 3.9 - 4.9 g/dL [facility] ALP [Catalytic activity/Vol] 75 U/L 34 - 123 U/L [facility] ALT [Catalytic activity/Vol] 8 U/L 7 - 38 U/L [facility] Anion gap [Moles/Vol] 9 mmol/L 8 - 15 mmol/L [facility] AST [Catalytic activity/Vol] 14 U/L 13 - 35 U/L [facility] Bilirubin [Mass/Vol] 0.6 mg/dL 0.2 - 1 .3 mg/dL [facility] Calcium [Mass/Vol] 10.0 mg/dL 8.5 - 10. 2 mg/dL [facility] Chloride [Moles/Vol] 101 mmol/L 98 - 10 7 mmol/L [facility] CO2 [Moles/Vol] 27 mmol/L 22 - 30 mmol/L [facility] Creatinine [Mass/Vol] 0.66 mg/dL 0.58 - 0.96 mg/dL [facility] GFR/1.73 sq M.predicted among non-blacks MDRD (S/P/Bld) [Vol rate/Area] 89 mL/min/{1.73_m2} - PINF [facility] Comment on above: Estimated Glomerular Filtration Rate [...] [Mass/Vol] 95 mg/dL 74 - 99 mg/dL [facility] Comment on above: The [place] Diab[employer] Association (ADA) provides guidance for [...] Standards of Medical Care in Diabetes 2016, [place] [employer]. Diabetes Care. 2016.39(Suppl 1). Interpretation and review of laboratory results Normal [facility] Potassium [Moles/Vol] 4.0 mmol/L 3.7 - 5.1 mmol/L [facility] Protein [Mass/Vol] 6.4 g/dL 6.3 - 8.0 g/dL [facility] Sodium [Moles/Vol] 137 mmol/L 136 - 144 mmol/L [facility] Urea nitrogen [Mass/Vol] 16 mg/dL 7 - 21 mg/d L [facility] Comprehensive metabolic 2000 panelon 02-02-2024 Albumin [Mass/Vol] 4.2 g/dL Normal 3.9-4.9 [facility] Comment on above: Order Comment: Speci susie Type: BLOOD SPECIMENOrdering Facility: [facility] Address: [address] [place] [address] Performed By: #### 2 4323-8 ####[facility] [id number] [place] [address] [place] ALP [Catalytic activity/Vol] 75 U/L Normal 34-123 [facility] Comment on above: Order Comment: Bre richards Type: BLOOD SPECIMENOrdering Facility: [facility] Address: [address] [place] [address] Performed By: #### 2 4323-8 ####[facility] TR[facility] [id number] [place] [address] [place] ALT [Catalytic activity/Vol] 8 U/L Normal 7-38 [facility] Comment on above: Order Comment: Sukhi men Type: BLOOD SPECIMENOrdering Facility: [facility] Address: [address] [place] [address] Performed By: #### 2 4323-8 ####[facility] TROYLIA [id number] [place] [address] [place] Anion gap [Moles/Vol] 9 mmol/L Normal 8-15 [facility] Comment on above: Order Comment: Speci men Type: BLOOD SPECIMENOrdering Facility: [facility] Address: [address] [place] [address] Performed By: #### 2 4323-8 ####[facility] [id number] [place] [address] [place] AST [Catalytic activity/Vol] 14 U/L Normal 13-35 [facility] Comment on above: Order Comment: Speci men Type: BLOOD SPECIMENOrdering Facility: [facility] Address: [address] [place] [address] Performed By: #### 2 4323-8 ####[facility] ERNCA [id number] [place] [address] [place] Bilirubin [Mass/Vol] 0.6 mg/dL Normal 0.2-1.3 [facility] Comment on above: Order Comment: Speci men Type: BLOOD SPECIMENOrdering Facility: [facility] Address: [address] [place] [address] Performed By: #### 2 4323-8 ####[facility] ERNCLIA [id number] [place] [address] [place] Calcium [Mass/Vol] 10.0 mg/dL Normal 8.5-10.2 [facility] Comment on above: Order Comment: Speci men Type: BLOOD SPECIMENOrdering Facility: [facility] Address: [address] [place] [address] Performed By: #### 2 4323-8 ####[facility] ERNCLIA [id number] [place] [address] [place] Chloride [Moles/Vol] 101 mmol/L Normal 98-107 [facility] Comment on above: Order Comment: Speci men Type: BLOOD SPECIMENOrdering Facility: [facility] Address: [address] [place] [address] Performed By: #### 2 4323-8 ####[facility]INADOCT[facility] [id number] [place] [address] [place] CO2 [Moles/Vol] 27 mmol/L Normal 22-30 [facility] Comment on above: Order Comment: Speci men Type: BLOOD SPECIMENOrdering Facility: [facility] Address: [address] [place] [address] Performed By: #### 2 4323-8 ####[facility] [id number] [place] [address] [place] Creatinine [Mass/Vol] 0.66 mg/dL Normal 0.58-0.96 [facility] Comment on above: Order Comment: Speci men Type: BLOOD SPECIMENOrdering Facility: [facility] Address: [address] [place] [address] Performed By: #### 2 4323-8 ####[facility] [id number] [address] [place] Creatinine and Glomerular filtration rate.predicted panel (S/P/Bld) 89 mL/min/1.73m??? Normal >=60 [facility] Comment on above: Order Comment: Speci men Type: BLOOD SPECIMENOrdering Facility: [facility] Address: [address] [place] [address] Result Comment: Sara mated Glomerular Filtration Rate [...] actual GFR. Performed By: #### 2 4323-8 ####[facility] [id number] [place] [address] [place] Glucose [Mass/Vol] 95 mg/dL Normal 74-99 [facility] Comment on above: Order Comment: Speci men Type: BLOOD SPECIMENOrdering Facility: [facility] Address: [address] [place] [address] Result Comment: The [place] Diabetes Association (ADA) provides guidance for cutoff [...] Standards of Medical Care in Diabetes 2016, [place] [employer]. Diabetes Care. 2016.39(Suppl 1). Performed By: #### 2 4323-8 ####[facility] MILLGUSWDIMITRISLIA [id number] [place] [address] [place] Potassium [Moles/Vol] 4.0 mmol/L Normal 3.7-5.1 [facility] Comment on above: Order Comment: Speci men Type: BLOOD SPECIMENOrdering Facility: [facility] Address: [address] [place] [address] Performed By: #### 2 4323-8 ####[facility] MILLGUSWNCLIA [id number] [place] [address] [place] Protein [Mass/Vol] 6.4 g/dL Normal 6.3-8.0 [facility] Comment on above: Order Comment: Speci men Type: BLOOD SPECIMENOrdering Facility: [facility] [facility] Address: [address] [place] [address] Performed By: #### 2 4323-8 ####[facility] [id number] [place] [address] [place] Sodium [Moles/Vol] 137 mmol/L Normal 136-144 [facility] Comment on above: Order Comment: Speci men Type: BLOOD SPECIMENOrdering Facility: [facility] Address: [address] [place] [address] Performed By: #### 2 4323-8 ####[facility] [id number] [place] [address] [place] Urea nitrogen [Mass/Vol] 16 mg/dL Normal 7-21 [facility] Comment on above: Order Comment: Speci men Type: BLOOD SPECIMENOrdering Facility: [facility] Address: [address] [place] [address] Performed By: #### 2 4323-8 ####[facility] [id number] [place] [address] [place] Ferritin [facility] 2023 Ferritin [Mass/Vol] 70.4 ng/mL Normal 14.7-205.1 [facility] Comment on above: Order Comment: Speci men Type: BLOOD SPECIMENOrdering Facility: [facility] Address: [address] [place] [address] Performed By: #### 2 276-4, 45343-8 ####[facility] [id number] [place] [address] [place] Iron and Iron binding capaci [facility] 02-02-2024 Iron [Mass/Vol] 121 ug/dL Normal 41-186 [facility] Comment on above: Order Comment: Speci men Type: BLOOD SPECIMENOrdering Facility: [facility] Address: [address] [place] [address] Performed By: #### 2 276-4, 08954-6 ####[facility] [id number] [place] [address] [place] Iron binding capacity [Mass/Vol] 311 ug/dL Normal 232-386 [facility] Comment on above: Order Comment: Speci men Type: BLOOD SPECIMENOrdering Facility: [facility] Address: [address] [place], [place] [address] Performed By: #### 2 276-4, 58134-4 ####[facility] [id number] [address] [address] [place] Iron/TIBC [Molar ratio] 38.9 % Normal 15.0-57.0 [facility] Comment on above: Order Comment: Speci men Type: BLOOD SPECIMENOrdering Facility: [facility] Address: [address] [place], [place] [address] Performed By: #### 2 276-4, 43807-9 ####[facility] [id number] [place] [id number] [place] GOOD SCREENING W TOMOon 01-15 GOOD SCREENING W MALOU * * *Final Report* * * DATE OF EXAM: Jan 16 2024 8:26AM [facility] 0582 - GOOD SCREENING W MALOU / PROCEDURE REASON: Encounter for screening breast examination * * * * Physician Interpretation * * * * RESULT: [place] [address] HISTORY: Patient is 78 years old and [...] Sarah Mendez M.D. Electronically signed on: 01/19/2024 Fund Manager: LUZ MARINA Transcribe Date/Time: Jan 16 2024 8:12A Dictated by: SARAH MENDEZ MD This examination was interpreted and the report reviewed and electronically signed by: SARAH MENDEZ MD on Jan 19 2024 8:12AM EST [id number] Normal [facility] MR Brain WO contraston 09-01 * * *Final Report* * * DATE OF EXAM: Sep 02 2023 2:19PM [facility] 0294 - MRI BRAIN WO IVCON / [...] dementia protocol and 3-D post-processing using the [employer] software at an independent workstation with concurrent [...] also Johan 2010). DIVISION OF RADIOLOGY Provider, [facility] - 09/02/2023 * * *Final Report* * * DATE OF EXAM: Sep 02 2023 2:19PM [facility] 0294 - MRI BRAIN WO IVCON / [...] dementia protocol and 3-D post-processing using the Pod[employer] software at an independent workstation with concurrent [...] Confluent lesions Jaguar (more content not included)... [facility] MR Unspecified body region 3 D post processingon 09-02-2023 * * *Final Report* * * DATE OF EXAM: Sep 02 2023 2:19PM [facility] 0280 - MRI 3D POST PROCESSING / [...] also Johan 2010). DIVISION OF RADIOLOGY Provider, [facility] - 09/02/2023 * * *Final Report* * * DATE OF EXAM: Sep 02 2023 2:19PM [facility] 0280 - MRI 3D POST PROCESSING / [...] = Confluent lesions (more content not included)... [facility] No Panel Informationon 09-01 IMPRESSION: * No [...] impairment, and elderly controls. Neuroimage 43;59 (2008). Wahlund et al. A New Rating Scale for Age-Related White Matter Changes Applicable to MRI and CT. Stroke. 32:1318 (2001). * Asymmetry index defined as difference between left and right volumes divided by mean (%). Age-matched reference charts measure total hippocampal volume (% of intracranial volume). See results from the analysis charts for details. Fund Manager: ISMA Transcribe Date/Time: Sep 02 2023 2:45P Dictated by : SREEDHAR GREEN MD This examination was interpreted and the report reviewed and electronically signed by: SREEDHAR GREEN MD on Sep 02 2023 3:00PM [facility] DIVISION OF RADIOLOGY Radiology Study observation (narrative) Deshawn adhikari [facility] No Panel InformationOrdered By: [facility] Provider on 09-02-2023 [facility] Basophil percentageOrdered B y: Moose Lawrence on 01-27-2023 Basophil percentage 0 SEEN /hpf 0-5 [facility] Bilirubin Test strip Ql (U)O rdered By: Moose Lawrence on 01-27-2023 Bilirubin Ql (U) Negative Negative [facility] Culture, urineOrdered By: St taras Lawrence on 01-27-2023 Bacteria identified Cx Nom (U) Mixed Gram Pos & Gram Neg Org [facility] Ketones Test strip Ql (U)Ord ered By: Moose Lawrence on 01-27-2023 Ketones Ql (U) Negative Negative [facility] Mucus LM Ql (Urine sed)Order ed By: Moose Lawrence on 01-27-2023 Mucus Ql (Urine sed) 0 SEEN /hpf [facility] Nitrite Test strip Ql (U)Ord ered By: Moose Lawrence on 01-27-2023 Nitrite Ql (U) Negative Negative [facility] Protein Test strip Ql (U)Ord ered By: Moose Lawrence on 01-27-2023 Protein Ql (U) Negative Negative [facility] Squamous epithelial cells de tection in urine sediment by light microscopyOrdered By: Moose Lawrence on 01-27-2023 Epithelial cells.squamous LM Ql (Urine sed) 0-5 SEEN /hpf 5-10 [facility] Urine blood detectionOrdered By: Moose Lawrence on 01-27-2023 RBC Ql (U) Negative Negative [facility] RBC Ql (U) 0 SEEN /hpf 0-5 [facility] Urine clarityOrdered By: Noah Lawrence on 01-27-2023 Clarity (U) Clear Clear [facility] Urine color determinationOrd ered By: Moose Lawrence on 01-27-2023 Color (U) Yellow Yellow [facility] Urine glucose detectionOrder ed By: Moose Lawrence on 01-27-2023 Glucose Ql (U) Normal mg/dl Normal [facility] Urine leukocyte esterase det ection by dipstickOrdered By: Moose Lawrence on 01-27-2023 Leukocyte esterase Test strip Ql (U) 100 /ul Negative [facility] Urine pHOrdered By: Moose ferro on 01-27-2023 pH (U) 7.0 [pH] 5.0 - 8.0 [facility] Urine sediment bacteria coun t by microscopy (number/high power field)Ordered By: Moose Lawrence on 01-27-2023 Bacteria LM.HPF (Urine sed) [#/Area] 0 /[HPF] None Seen [facility] Urine specific gravity measu rementOrdered By: Moose Lawrence on 01-27-2023 Specific gravity (U) [Rel density] 1.010 1.002-1.030 [facility] Urobilinogen Auto test strip Ql (U)Ordered By: Moose Lawrence on 01-27-2023 Urobilinogen Ql (U) Normal mg/dl Normal [facility] Laboratory - Chemistry and C hemistry - challengeon 01-25-2023 Bilirubin Ql (U) Negative [facility] Glucose Ql (U) Negative [facility] Ketones Ql (U) Negative [facility] pH (U) 6.5 [pH] [facility] Specific gravity (U) [Rel density] 1.010 [facility] Urobilinogen (U) [Mass/Vol] 0.8135180 mg/dL [facility] Laboratory - Hematology and Cell countson 01-25-2023 Hemoglobin Ql (U) Negative [facility] Laboratory - Specimen inform ationon 01-25-2023 Clarity (U) Cloudy [facility] Color (U) YELLOW [facility] Laboratory - Urinalysison Nitrite Ql (U) Negative [facility] Protein Ql (U) Negative [facility] No Panel Informationon 01-25 Urine Leukocytes Positive [facility] Urine Non-Hemolyzed Blood Negative [facility] GOOD SCREENINGon 01-07-2023 [facility] UA DIP, URINE (POC)on 2022 BILIRUBIN UA (POCT) Negative Negative [facility] CLARITY UA (POCT) Clear [facility] COLOR UA (POCT) Yellow [facility] GLUCOSE UA (POCT) Negative Negative mg/dL [facility] Hemoglobin Ql (U) Trace-intact Abnormal Negative [facility] KETONE UA (POCT) Negative Negative mg/dL [facility] LEUKOCYTES UA (POCT) Trace [facility]normal [facility] NITRITE UA (POCT) Negative Negative [facility] PH UA (POCT) 7.0 4.5 - 8.0 [facility] Protein Ql (U) Negative Negative mg/dL [facility] SPECIFIC GRAVITY UA (POCT) 1.010 1.005 - 1.030 [facility] UROBILINOGEN UA (POCT) 0.2 E.U./dL Deysi l E.U./dL [facility] Basophil percentageOrdered B y: Katarina Medina on 12-09-2022 Bilirubin [Mass/Vol] 0.60 mg/dL 0.20-1.00 [facility] Comment on above: For patients on eltr ombopag therapy, use of Dimension Brunson TBIL is not recommended. Chloride [Moles/Vol] 105 mmol/L 98-107 [facility] Cholesterol [Mass/Vol] 171 mg/dL <200 [facility] Comment on above: <200 mg/dL Desirable 200-240 mg/dL Borderline >240 mg/dL High Risk Glucose [Mass/Vol] 99 mg/dL 74-106 [facility] Potassium [Moles/Vol] 3.8 mmol/L 3.5-5.1 [facility] Protein [Mass/Vol] 7.0 g/dL 6.4-8.2 [facility] Sodium [Moles/Vol] 140 mmol/L 136-145 [facility] Triglyceride [Mass/Vol] 95 mg/dL <199 [facility] Comment on above: The drugs N-Acetylcy steine and Metamizole may falsely depress this assay.Serum Triglycerides Reference Interval Normal <150 mg/dL Borderline high 150 - 199 mg/dL High 200 - 499 mg/dL Very High > or = 500 mg/dL Laboratory - Chemistry and C hemistry - challengeOrdered By: Katarina Medina on 12-09-2022 ALP [Catalytic activity/Vol] 78 U/L 45-117 [facility] ALT [Catalytic activity/Vol] 18 U/L 13-56 [facility] CO2 [Moles/Vol] 29.0 mmol/L 21.0-32.0 [facility] Cobalamin (Vitamin B12) [Mass/Vol] 420 pg/mL 211-911 [facility] Globulin (S) [Mass/Vol] 3.1 g/dL 2.2-4.2 [facility] Magnesium [Mass/Vol] 2.4 mg/dL 1.6-2.6 [facility] Urea nitrogen/Creatinine [Mass ratio] 17.9 mg/mg 10-20 [facility] No Panel InformationOrdered By: Katarina Medina on 12-09-2022 Estimated GFR (MDRD) Amer 109 mL/min >60 [facility] Comment on above: GFR Calc Estimated GFR (MDRD) Non-Af Amer 90 mL/min >60 [facility] Comment on above: Non- GFR Calc Thyroid Stimulating Hormone (TSH) 0.80 uIU/mL 0.358-3.74 [facility] Vitamin D 25-Hydroxy 105.5 ng/mL [facility] Comment on above: Vitamin D 25(OH) [...] Medina on 12-09-2022 CRP [Mass/Vol] mg/L 0.0-3.0 [facility] Comment on above: C-Reactive Protein ( CRP) provides useful information for thediagnosis, therapy and monitoring of inflammatory processesand associated diseases. For the evaluation of Relative Riskfor Cardiovascular Disease, a High Sensitivity CRP (HSCRP)should be ordered. Serum or plasma albumin chapis urement (mass/volume)Ordered By: Katarina Medina on 12-09-2022 Albumin [Mass/Vol] 3.9 g/dL 3.2-5.0 [facility] Serum or plasma albumin/glob ulin mass ratioOrdered By: Katarina Medina on 12-09-2022 Albumin/Globulin [Mass ratio] 1.3 {ratio} 0.9-2.4 [facility] Serum or plasma calcium chapis urement (mass/volume)Ordered By: Katarina Medina on 12-09-2022 Calcium [Mass/Vol] 9.3 mg/dL 8.5-10.1 [facility] Serum or plasma cholesterol in HDL measurement (mass/volume)Ordered By: Katarina Medina on 12-09-2022 Cholesterol in HDL [Mass/Vol] 68 mg/dL >40 [facility] Comment on above: The drugs N-Acetylcy steine and Metamizole may falsely depress this assay. Reference Range HDL <40 mg/dL Low HDL Cholesterol HDL >or= 60 mg/dL High HDL Cholesterol Serum or plasma cholesterol in VLDL measurement (mass/volume)Ordered By: Katarina Medina on 12-09-2022 Cholesterol in VLDL [Mass/Vol] 19 mg/dL 5-40 [facility] Serum or plasma creatinine m easurement (mass/volume)Ordered By: Katarina Medina on 12-09-2022 Creatinine [Mass/Vol] 0.67 mg/dL 0.55-1.02 [facility] Comment on above: The validity of the calculated GFR & GFRAA in patients over 70 years has not been determined. Clinical correlation is essential. Serum or plasma low density lipoprotein (LDL) cholesterol measurement (mass/volume)Ordered By: Katarina Medina on 12-09-2022 Cholesterol in LDL [Mass/Vol] 84 mg/dL 0-130 [facility] Serum or plasma urea nitroge n measurement (mass/volume)Ordered By: Katarina Medina on 12-09-2022 Urea nitrogen [Mass/Vol] 12 mg/dL 7-18 [facility] Thin prep Papanicolaou smear with manual screeningOrdered By: Katarina Medina on 12-09-2022 Thin prep Papanicolaou smear with manual screening 14 U/L 15-37 [facility] Thin prep Papanicolaou smear with manual screening 6 -15 [facility] No Panel Informationon 11-01 Anti-Nuclear Antibody Screen Negative Negative [facility] Comment on above: Performed at: [facility] [employer] [id number] Director: Jaunito Boone PhD, Phone: [phone] Miscellaneous Test See comment [facility] Comment on above: TEST RESULTS LIMITSA nti-SS-A 52kD Ab, IgG (RDL) A, <20 Units <20 Negative: <20 Weak Positive: 20 - 39 Moderate Positive: 40 - 80 Strong Positive: >80CommentsA: This test was developed and its performance characteristics determined by [employer]. It has not been cleared or approved by the Food and DrugAdministration. TESTING PERFORMED AT [facility]. ORIGINAL REPORT ON FILE IN LAB CONTAINS ADDITIONAL TEST SITE INFORMATION. [facility]20[facility]VER[facility] ([id number]) 1945 F Date Time Provider Department 10/25/22 [...] Date Reviewed: 07/15/2022 Reviewed by: Izabel Sams APRN.BATTERY TESTER - Fully Assessed Reason for Visit: Orders [681] Primary Visit Diagnosis:Screening breast examination [Z12.39] Order(s):[facility] SCREENING [[id number]] Order #: [id number] FUTURE Prescriptions as of 10/29/2022 - TURMERIC ORAL Take by mouth. - lutein 10 mg tab Take 1 tablet by mouth once daily. - OTC PRODUCT 250 mg once daily. Quercetin - Bacillus coagulans/inulin (PROBIOTIC WITH PREBIOTIC ORAL) Take 1 capsule by mouth once daily. - OTC PRODUCT [place]- r/t [facility] study - MAGNESIUM ORAL Take 100 [...] Encounter Status:Closed by MI DOUGLAS on 10/25/22 [facility] CBC W Auto Differential pane l (Bld)on 08-13-2022 Basophils (Bld) [#/Vol] 0.05 10*3/uL <0.11 k/uL [facility] Basophils/100 WBC (Bld) 1.0 % C [facility] Differential cell count method Nom (Bld) Auto [facility] Eosinophils (Bld) [#/Vol] 0.15 10*3/uL <0.46 k/uL [facility] Eosinophils/100 WBC (Bld) 2.9 % [facility] Erythrocyte distribution width (RBC) [Ratio] 13.3 % 11.5 - 15.0 % [facility] Hematocrit (Bld) [Volume fraction] 43.8 % 36.0 - 46.0 % [facility] Hemoglobin (Bld) [Mass/Vol] 14.9 g/dL 11.5 - 15.5 g/dL [facility] Immature granulocytes (Bld) [#/Vol] <0.10 k/uL [facility] Immature granulocytes/100 WBC (Bld) 0.2 % [facility] Lymphocytes (Bld) [#/Vol] 1.49 10*3/uL 1.00 - 4.00 k/uL [facility] Lymphocytes/100 WBC (Bld) 28.6 % [facility] MCH (RBC) [Entitic mass] 29.8 pg 26. 0 - 34.0 pg [facility] MCHC (RBC) [Mass/Vol] 34.0 g/dL 30.5 - 36.0 g/dL [facility] MCV (RBC) [Entitic vol] 87.6 fL 80.0 - 100.0 fL [facility] Monocytes (Bld) [#/Vol] 0.43 10*3/uL <0.87 k/uL [facility] Monocytes/100 WBC (Bld) 8.3 % [facility] Neutrophils (Bld) [#/Vol] 3.08 10*3/uL 1.45 - 7.50 k/uL [facility] Neutrophils/100 WBC (Bld) 59.0 % [facility] Nucleated RBC (Bld) [#/Vol] <0.01 k/uL [facility] Nucleated RBC/100 WBC (Bld) [Ratio] 0.0 /100 WBC [facility] Platelet mean volume (Bld) [Entitic vol] 10.1 fL 9.0 - 12.7 fL [facility] Platelets (Bld) [#/Vol] 183 10*3/uL 150 - 400 k/uL [facility] RBC (Bld) [#/Vol] 5.00 10*6/uL 3.90 - 5.2 0 m/uL [facility] WBC (Bld) [#/Vol] 5.21 10*3/uL 3.70 - 11. 00 k/uL [facility] US ABD RT UPPER QUADRANTon 0 06-03-2022 [facility] GOOD SCREENINGon 01-03-2022 [facility] No Panel Informationon 12-20 Miscellaneous Test See comment [facility] Work Phone: Comment on above: TEST RESULT LIMITSCl ass Description: Levels of Specific IgE Class Description of Class ----- < 0.10 0 Negative 0.10 - 0.31 0/I Equivocal/Low 0.32 - 0.55 I Low 0.56 - 1.40 II Moderate 1.41 - 3.90 III High 3.91 - 19.00 IV Very High19.01 - 100.00 V Very High >100.00 Very LipbI450-WiH Penicilliumchrysogen <0.10 kU/L Class 2S592-MvS Cladosporiumherbarum <0.10 kU/L Class 8D904-YyB Aspergillusfumigatus <0.10 kU/L Class 8A731-AzS Mucor racemosus <0.10 kU/L Class 6Y836-IzJ Jerrica albicans <0.10 kU/L Class 8C212-QvT Alternaria alternata <0.10 kU/L Class 5X057-QbE Setomelanommarostrat <0.10 kU/L Class 1W012-QvO Fusariumproliferatum <0.10 kU/L Class 9A918-IuX Aureobasidipullulans <0.10 kU/L Class 5N840-QzQ Phoma betae <0.10 kU/L Class 1X390-RcU Epicoccum purpur <0.10 kU/L Class 8Y467-EsG Stemphyliumherbarum <0.10 kU/L Class 0 TESTING PERFORMED AT [facility]. ORIGINAL REPORT ON FILE IN LAB CONTAINS ADDITIONAL TEST SITE INFORMATION. No Panel Informationon 08-02 Miscellaneous Test See comment [facility] Work Phone: Comment on above: TEST RESULT UNITS RE F INTERVALAllergen Profile, MoldClass Description Levels of Specific IgE Class Description of Class ----- < 0.10 0 Negative 0.10 - 0.31 0/I Equivocal/Low 0.32 - 0.55 I Low 0.56 - 1.40 II Moderate 1.41 - 3.90 III High 3.91 - 19.00 IV Very High 19.01 - 100.00 V Very High >100.00 Very QbhbQ001-CjX Penicillium chrysogen <0.10 kU/L Class 0V945-ExU Cladosporium herbarum <0.10 kU/L Class 2V182-BpL Aspergillus fumigatus <0.10 kU/L Class 0M884-GdZ Mucor racemosus <0.10 kU/L Class 2L474-JzI Jerrica albicans <0.10 kU/L Class 3Y149-UoD Alternaria alternata <0.10 kU/L Class 2S603-HzW Setomelanomma rostrat <0.10 kU/L Class 1M173-MvP Fusarium proliferatum <0.10 kU/L Class 4Z581-WsV Aureobasidi pullulans <0.10 kU/L Class 1A124-WzB Phoma betae <0.10 kU/L Class 2M044-YqO Epicoccum purpur <0.10 kU/L Class 4S553-UcV Stemphylium herbarum <0.10 kU/L Class 0 TESTING PERFORMED AT [facility]. ORIGINAL REPORT ON FILE IN LAB CONTAINS ADDITIONAL TEST SITE INFORMATION. Absolute lymphocyte counton 05-28-2021 Lymphocytes Auto (Unsp spec) [#/Vol] 1.18 10*3/uL 0.83-4.51 [facility] Work Phone: Basophil percentageon 2021 Basophils/100 WBC (Bld) 1.4 % 0-1 [facility] Work Phone: Bilirubin [Mass/Vol] 0.60 mg/dL 0.20-1.00 [facility] Work Phone: Comment on above: For patients on eltr ombopag therapy, use of Dimension Brunson TBIL is not recommended. Chloride [Moles/Vol] 107 mmol/L 98-107 [facility] Work Phone: Cholesterol [Mass/Vol] 159 mg/dL <200 [facility] Work Phone: Comment on above: <200 mg/dL Desirable 200-240 mg/dL Borderline >240 mg/dL High Risk Eosinophils/100 WBC (Bld) 2.3 % 0-5 [facility] Work Phone: Glucose [Mass/Vol] 100 mg/dL 74-106 [facility] Work Phone: Comment on above: Fasting Glucose resu lt from 100 to 125 mg/dL suggests IMPAIRED HOMEOSTASIS per A.D.A. criteria. Neutrophils (Bld) [#/Vol] 2.7 10*3/uL 2.0-7.7 [facility] Work Phone: Neutrophils/100 WBC (Bld) 62.0 % 47-70 [facility] Work Phone: Potassium [Moles/Vol] 4.2 mmol/L 3.5-5.1 [facility] Work Phone: Protein [Mass/Vol] 6.8 g/dL 6.4-8.2 [facility] Work Phone: Sodium [Moles/Vol] 140 mmol/L 136-145 [facility] Work Phone: Triglyceride [Mass/Vol] 69 mg/dL [facility] Work Phone: Comment on above: The drugs N-Acetylcy steine and Metamizole may falsely depress this assay.Serum Triglycerides Reference Interval Normal <150 mg/dL Borderline high 150 - 199 mg/dL High 200 - 499 mg/dL Very High > or = 500 mg/dL WBC (Bld) [#/Vol] 4.4 10*3/uL 4.4-11.0 [facility] Work Phone: Blood erythrocytes count (nu mber/volume)on 05-28-2021 RBC (Bld) [#/Vol] 4.66 10*6/uL 4.2-5.4 [facility] Work Phone: Blood hemoglobin measurement (mass/volume)on 05-28-2021 Hemoglobin (Bld) [Mass/Vol] 13.8 g/dL 12.0-15.0 [facility] Work Phone: Blood lymphocytes/100 leukoc yteson 05-28-2021 Lymphocytes/100 WBC (Bld) 26.8 % 19-41 [facility] Work Phone: Blood monocytes/100 leukocyt eson 05-28-2021 Monocytes/100 WBC (Bld) 7.3 % 0-10 [facility] Work Phone: Blood platelet mean volumeon 05-28-2021 Platelet mean volume (Bld) [Entitic vol] 10.4 fL 6.2-12.0 [facility] Work Phone: Determination of erythrocyte mean corpuscular volume (MCV)on 05-28-2021 MCV (RBC) [Entitic vol] 89.3 fL 81-99 [facility] Work Phone: Hematocrit Auto (Bld) [Volum e fraction]on 05-28-2021 Hematocrit (Bld) [Volume fraction] 41.6 % 37-47 [facility] Work Phone: Laboratory - Chemistry and C hemistry - challengeon 05-28-2021 ALP [Catalytic activity/Vol] 70 U/L 45-117 [facility] Work Phone: ALT [Catalytic activity/Vol] 16 U/L 13-56 [facility] Work Phone: CO2 [Moles/Vol] 29.0 mmol/L 21.0-32.0 [facility] Work Phone: Cobalamin (Vitamin B12) [Mass/Vol] 365 pg/mL 211-911 [facility] Work Phone: Globulin (S) [Mass/Vol] 2.9 g/dL 2.2-4.2 [facility] Work Phone: Urea nitrogen/Creatinine [Mass ratio] 17.2 mg/mg 10-20 [facility] Work Phone: Laboratory - Hematology and Cell countson 05-28-2021 Erythrocyte distribution width (RBC) [Entitic vol] 43.7 fL 35.1-43.9 [facility] Work Phone: Erythrocyte distribution width (RBC) [Ratio] 13.4 % 11.6-14.6 [facility] Work Phone: Immature granulocytes/100 WBC (Bld) 0.200 % 0.0-0.9 [facility] Work Phone: Comment on above: IG% - Immature Granu locytes (promyelocytes, myelocytes and metamyelocytes) > 1% indicates that a LEFT SHIFT is Present. MCH (RBC) [Entitic mass] 29.6 pg 27.0-32.0 [facility] Work Phone: Nucleated RBC/100 WBC (Bld) [Ratio] 0 % 0-5 [facility] Work Phone: MCHC Auto (RBC) [Mass/Vol]on 05-28-2021 MCHC (RBC) [Mass/Vol] 33.2 g/dL 32-36 [facility] Work Phone: No Panel Informationon 05-28 Estimated GFR (MDRD) Amer 105 mL/min >60 [facility] Work Phone: Comment on above: GFR Calc Estimated GFR (MDRD) Non-Af Amer 87 mL/min >60 [facility] Work Phone: Comment on above: Non- GFR Calc Thyroid Stimulating Hormone (TSH) 0.77 uIU/mL 0.358-3.74 [facility] Work Phone: Vitamin D 25-Hydroxy 96.7 ng/mL [facility] Work Phone: Comment on above: Vitamin D 25(OH) Sta tus Range Deficiency <20 ng/mL (50nmol/L) Insufficiency 20 - 30 ng/mL (50 - 75 nmol/L) Sufficiency 30 - 100 ng/mL (75 - 250 nmol/L) Toxicity >100 ng/mL (>250 nmol/L) Platelets bldon 05-28-2021 Platelets (Bld) [#/Vol] 230 10*3/uL [phone] [facility] Work Phone: Serum or plasma albumin chapis urement (mass/volume)on 05-28-2021 Albumin [Mass/Vol] 3.9 g/dL 3.2-5.0 [facility] Work Phone: Serum or plasma albumin/glob ulin mass ratioon 05-28-2021 Albumin/Globulin [Mass ratio] 1.3 {ratio} 0.9-2.4 [facility] Work Phone: Serum or plasma calcium chapis urement (mass/volume)on 05-28-2021 Calcium [Mass/Vol] 9.2 mg/dL 8.5-10.1 [facility] Work Phone: Serum or plasma cholesterol in HDL measurement (mass/volume)on 05-28-2021 Cholesterol in HDL [Mass/Vol] 59 mg/dL [facility] Work Phone: Comment on above: The drugs N-Acetylcy steine and Metamizole may falsely depress this assay. Reference Range HDL <40 mg/dL Low HDL Cholesterol HDL >or= 60 mg/dL High HDL Cholesterol Serum or plasma cholesterol in VLDL measurement (mass/volume)on 05-28-2021 Cholesterol in VLDL [Mass/Vol] 14 mg/dL 5-40 [facility] Work Phone: Serum or plasma creatinine m easurement (mass/volume)on 05-28-2021 Creatinine [Mass/Vol] 0.70 mg/dL 0.55-1.02 [facility] Work Phone: Comment on above: The validity of the calculated GFR & GFRAA in patients over 70 years has not been determined. Clinical correlation is essential. Serum or plasma low density lipoprotein (LDL) cholesterol measurement (mass/volume)on 05-28-2021 Cholesterol in LDL [Mass/Vol] 86 mg/dL 0-130 [facility] Work Phone: Serum or plasma urea nitroge n measurement (mass/volume)on 05-28-2021 Urea nitrogen [Mass/Vol] 12 mg/dL 7-18 [facility] Work Phone: Thin prep Papanicolaou smear with manual screeningon 05-28-2021 Thin prep Papanicolaou smear with manual screening 15 U/L 15-37 [facility] Work Phone: Thin prep Papanicolaou smear with manual screening 4 5-15 [facility] Work Phone: Whole blood hemoglobin A1c/t otal hemoglobin ratio (mass fraction)on 05-28-2021 HbA1c (Bld) [Mass fraction] 5.3 % 3.8-5.6 [facility] Work Phone: Comment on above: Normal < 5.7 % Predi abetic 5.7 - 6.4 % Diabetic >or= 6.5 % Please note range changes. Laboratory - Microbiology an d Antimicrobial susceptibilityon 03-23-2021 SARS-CoV-2 (COVID-19) RNA ULISES+probe Ql (Unsp spec) Detected Not Detect [facility] Work Phone: Comment on above: Normal Reference Ran ge: Not DetectedMethod:(RT-PCR) real-time reverse transcriptase PCRLuminex SUKI Instrument*The Food and Drug Administration (FDA) has issued an Emergency Use Authorization (EAU) for the Bringrs SARS-CoV-2 Assay for the rapid detection of [...] Time Vital Sign Value Performing Clinician Facility 01-13-2025 19:08-0500 Body height 165.[address] Katarina Medina MD Work Phone: [facility] 01-13-2025 19:08-0500 Body mass index (BMI) [Ratio] 25.8 kg/m2 Dr. Katarina Medina MD Work Phone: [facility] 01-13-2025 19:08-0500 Body temperature 97.9 [degF] Dr. Katarina Medina MD Work Phone: [facility] 01-13-2025 19:08-0500 Body weight 70.[address] Katarina Medina MD Work Phone: [facility] 01-13-2025 19:08-0500 Diastolic blood pressure 59 mm[Hg] Dr. Katarina Medina MD Work Phone: [facility] 01-13-2025 19:08-0500 Heart rate 80 /min Dr. Katarina Medina MD Work Phone: [facility] 01-13-2025 19:08-0500 Respiratory rate 16 /min Dr. Katarina Medina MD Work Phone: [facility] 01-13-2025 19:08-0500 SaO2% (BldA) [Mass fraction] 100 % Dr. Katarina Medina MD Work Phone: [facility] 01-13-2025 19:08-0500 Systolic blood pressure 177 mm[Hg] Dr. Katarina Medina MD Work Phone: [facility] 01-13-2025 17:04-0500 Body temperature 98.1 [degF] Dr. Katarina Medina MD Work Phone: [facility] 01-13-2025 17:04-0500 Diastolic blood pressure 80 mm[Hg] Dr. Katarina Medina MD Work Phone: [facility] 01-13-2025 17:04-0500 Heart rate 66 /min Dr. Katarina Medina MD Work Phone: [facility] 01-13-2025 17:04-0500 Respiratory rate 16 /min Dr. Katarina Medina MD Work Phone: [facility] 01-13-2025 17:04-0500 SaO2% (BldA) [Mass fraction] 97 % Dr. Katarina Medina MD Work Phone: [facility] 01-13-2025 17:04-0500 Systolic blood pressure 124 mm[Hg] Dr. Katarina Medina MD Work Phone: [facility] 12-27-2024 14:28-0400 Body mass index (BMI) [Ratio] 25.9 kg/m2 Dr. Katarina Medina MD Work Phone: [facility] 12-27-2024 14:28-0400 Body temperature 98.4 [degF] Dr. Katarina Medina MD Work Phone: [facility] 12-27-2024 14:28-0400 Body weight 70.[address] Katarina Medina MD Work Phone: [facility] 12-27-2024 14:28-0400 Diastolic blood pressure 72 mm[Hg] Dr. Katarina Medina MD Work Phone: [facility] 12-27-2024 14:28-0400 Heart rate 59 /min Dr. Katarina Medina MD Work Phone: [facility] 12-27-2024 14:28-0400 Respiratory rate 16 /min Dr. Katarina Medina MD Work Phone: [facility] 12-27-2024 14:28-0400 SaO2% (BldA) [Mass fraction] 96 % Dr. Katarina Medina MD Work Phone: [facility] 12-27-2024 14:28-0400 Systolic blood pressure 187 mm[Hg] Dr. Katarina Medina MD Work Phone: [facility] 12-01-2024 20:03-0400 Body temperature 97.9 [degF] Dr. Katarina Medina MD Work Phone: [facility] 12-01-2024 20:03-0400 Diastolic blood pressure 90 mm[Hg] Dr. Katarina Medina MD Work Phone: [facility] 12-01-2024 20:03-0400 Heart rate 81 /min Dr. Katarina Medina MD Work Phone: [facility] 12-01-2024 20:03-0400 Respiratory rate 16 /min Dr. Katarina Medina MD Work Phone: [facility] 12-01-2024 20:03-0400 SaO2% (BldA) [Mass fraction] 98 % Dr. Katarina Medina MD Work Phone: [facility] 12-01-2024 20:03-0400 Systolic blood pressure 161 mm[Hg] Dr. Katarina Medina MD Work Phone: [facility] 12-01-2024 14:33-0400 Body height 165.[address] Katarina Medina MD Work Phone: [facility] 12-01-2024 14:33-0400 Body mass index (BMI) [Ratio] 25.6 kg/m2 Dr. Katarina Medina MD Work Phone: [facility] 12-01-2024 14:33-0400 Body weight 69.[address] Katarina Medina MD Work Phone: [facility] 10-18-2024 06:41-0400 Body height 165.[address] Katarina Medina MD Work Phone: [facility] 10-18-2024 06:41-0400 Body mass index (BMI) [Ratio] 25.2 kg/m2 Dr. Katarina Medina MD Work Phone: [facility] 10-18-2024 06:41-0400 Body temperature 97.5 [degF] Dr. Katarina Medina MD Work Phone: [facility] 10-18-2024 06:41-0400 Body weight 68.[address] Katarina Medina MD Work Phone: [facility] 10-18-2024 06:41-0400 Diastolic blood pressure 72 mm[Hg] Dr. Katarina Medina MD Work Phone: [facility] 10-18-2024 06:41-0400 Heart rate 69 /min Dr. Katarina Medina MD Work Phone: [facility] 10-18-2024 06:41-0400 SaO2% (BldA) [Mass fraction] 98 % Dr. Katarina Medina MD Work Phone: [facility] 10-18-2024 06:41-0400 Systolic blood pressure 148 mm[Hg] Dr. Katarina Medina MD Work Phone: [facility] 10-12-2024 09:12-0400 Diastolic blood pressure 81 mm[Hg] [facility] Work Phone: [facility] 10-12-2024 09:12-0400 Heart rate 63 /min [facility] Work Phone: [facility] 10-12-2024 09:12-0400 Systolic blood pressure 170 mm[Hg] [facility] Work Phone: [facility] 10-12-2024 08:29-0400 Body mass index (BMI) [Ratio] 25.79 kg/m2 Luis Masci DO Work Phone: [facility] 10-12-2024 08:29-0400 Body temperature 98.01 [degF] Luis Masci DO Work Phone: [facility] 10-12-2024 08:29-0400 Body weight 70.31 kg Luis Masci DO Work Phone: [facility] 10-12-2024 08:29-0400 Diastolic blood pressure 76 mm[Hg] Luis Masci DO Work Phone: [facility] 10-12-2024 08:29-0400 Heart rate 73 /min Luis Masci DO Work Phone: [facility] 10-12-2024 08:29-0400 SaO2% (BldA) [Mass fraction] 100 % Luis Masci DO Work Phone: [facility] 10-12-2024 08:29-0400 Systolic blood pressure 176 mm[Hg] Luis Masci DO Work Phone: [facility] 09-15-2024 09:52-0400 Body height 165.[address] Katarina Medina MD Work Phone: [facility] 09-15-2024 09:52-0400 Body mass index (BMI) [Ratio] 24.7 kg/m2 Dr. Katarina Medina MD Work Phone: [facility] 09-15-2024 09:52-0400 Body temperature 98.2 [degF] Dr. Katarina Medina MD Work Phone: [facility] 09-15-2024 09:52-0400 Body weight 67.[address] Katarina Medina MD Work Phone: [facility] 09-15-2024 09:52-0400 Diastolic blood pressure 71 mm[Hg] Dr. Katarina Medina MD Work Phone: [facility] 09-15-2024 09:52-0400 Heart rate 63 /min Dr. Katarina Medina MD Work Phone: [facility] 09-15-2024 09:52-0400 Respiratory rate 16 /min Dr. Katarina Medina MD Work Phone: [facility] 09-15-2024 09:52-0400 SaO2% (BldA) [Mass fraction] 96 % Dr. Katarina Medina MD Work Phone: [facility] 09-15-2024 09:52-0400 Systolic blood pressure 180 mm[Hg] Dr. Katarina Medina MD Work Phone: [facility] 09-12-2024 12:41-0400 Body temperature 98.9 [degF] Dr. Katarina Medina MD Work Phone: [facility] 09-12-2024 12:41-0400 Diastolic blood pressure 78 mm[Hg] Dr. Katarina Medina MD Work Phone: [facility] 09-12-2024 12:41-0400 Heart rate 86 /min Dr. Katarina Medina MD Work Phone: [facility] 09-12-2024 12:41-0400 Respiratory rate 16 /min Dr. Katarina Medina MD Work Phone: [facility] 09-12-2024 12:41-0400 SaO2% (BldA) [Mass fraction] 100 % Dr. Katarina Medina MD Work Phone: [facility] 09-12-2024 12:41-0400 Systolic blood pressure 145 mm[Hg] Dr. Katarina Medina MD Work Phone: [facility] 09-12-2024 08:36-0400 Body height 165.[address] Katarina Medina MD Work Phone: [facility] 09-12-2024 08:36-0400 Body mass index (BMI) [Ratio] 23.8 kg/m2 Dr. Katarina Medina MD Work Phone: [facility] 09-12-2024 08:36-0400 Body weight 64.[address] Katarina Medina MD Work Phone: [facility] 09-01-2024 16:20-0400 Body temperature 98.2 [degF] Dr. Katarina Medina MD Work Phone: [facility] 09-01-2024 16:20-0400 Diastolic blood pressure 80 mm[Hg] Dr. Katarina Medina MD Work Phone: [facility] 09-01-2024 16:20-0400 Heart rate 61 /min Dr. Katarina Medina MD Work Phone: [facility] 09-01-2024 16:20-0400 Respiratory rate 16 /min Dr. Katarina Medina MD Work Phone: [facility] 09-01-2024 16:20-0400 SaO2% (BldA) [Mass fraction] 97 % Dr. Katarina Medina MD Work Phone: [facility] 09-01-2024 16:20-0400 Systolic blood pressure 124 mm[Hg] Dr. Katarina Medina MD Work Phone: [facility] 07-20-2024 14:05-0400 Body height 165.[address] Katarina Medina MD Work Phone: [facility] 07-20-2024 09:39-0400 Diastolic blood pressure 69 mm[Hg] [facility] Work Phone: [facility] 07-20-2024 09:39-0400 Heart rate 60 /min [facility] Work Phone: [facility] 07-20-2024 09:39-0400 Systolic blood pressure 155 mm[Hg] [facility] Work Phone: [facility] 07-20-2024 08:35-0400 Body temperature 97.81 [degF] [facility] Work Phone: [facility] 07-20-2024 08:35-0400 SaO2% (BldA) [Mass fraction] 98 % [facility] Work Phone: [facility] 06-30-2024 14:34-0400 Body mass index (BMI) [Ratio] 25.5 kg/m2 Dr. Katarina Medina MD Work Phone: [facility] 06-30-2024 14:34-0400 Body temperature 98.4 [degF] Dr. Katarina Medina MD Work Phone: [facility] 06-30-2024 14:34-0400 Body weight 69.[address] Katarina Medina MD Work Phone: [facility] 06-30-2024 14:34-0400 Diastolic blood pressure 71 mm[Hg] Dr. Katarina Medina MD Work Phone: [facility] 06-30-2024 14:34-0400 Heart rate 63 /min Dr. Katarina Medina MD Work Phone: [facility] 06-30-2024 14:34-0400 Respiratory rate 16 /min Dr. Katarina Medina MD Work Phone: [facility] 06-30-2024 14:34-0400 SaO2% (BldA) [Mass fraction] 97 % Dr. Katarina Medina MD Work Phone: [facility] 06-30-2024 14:34-0400 Systolic blood pressure 181 mm[Hg] Dr. Katarina Medina MD Work Phone: [facility] 05-27-2024 15:07-0400 Diastolic blood pressure 55 mm[Hg] Airam Alvarado EMBOSSING CLERK.BATTERY TESTER Work Phone: [facility] 05-27-2024 15:07-0400 Systolic blood pressure 159 mm[Hg] Airam Alvarado EMBOSSING CLERK.BATTERY TESTER Work Phone: [facility] 05-27-2024 13:46-0400 Body height 165.1 cm Airam Jerryall EMBOSSING CLERK.BATTERY TESTER Work Phone: [facility] 05-27-2024 13:46-0400 Body mass index (BMI) [Ratio] 25.24 kg/m2 Airam Alvarado EMBOSSING CLERK.BATTERY TESTER Work Phone: [facility] 05-27-2024 13:46-0400 Body weight 68.8 kg Airam Alvarado EMBOSSING CLERK.BATTERY TESTER Work Phone: [facility] 05-27-2024 13:46-0400 Heart rate 68 /min Airam Jerryall EMBOSSING CLERK.BATTERY TESTER Work Phone: [facility] 04-27-2024 09:13-0500 Diastolic blood pressure 73 mm[Hg] [facility] Work Phone: [facility] Comment on above: Pt states she has talked to Dr. Asaf owen out elevated BP. Pt. takes BP at home and showed this nurse BP this am [id number]. 04-27-2024 09:13-0500 Heart rate 65 /min [facility] Work Phone: [facility] 04-27-2024 09:13-0500 Respiratory rate 18 /min [facility] Work Phone: [facility] 04-27-2024 09:13-0500 Systolic blood pressure 165 mm[Hg] [facility] Work Phone: [facility] Comment on above: Pt states she has talked to Dr. Asaf owen out elevated BP. Pt. takes BP at home and showed this nurse BP this am [id number]. 04-27-2024 08:33-0500 Body temperature 96.8 [degF] [facility] Work Phone: [facility] 04-27-2024 08:33-0500 SaO2% (BldA) [Mass fraction] 99 % [facility] Work Phone: [facility] 04-19-2024 16:00-0500 Body height 165.1 cm Oli Avery MD Work Phone: [facility] 04-19-2024 16:00-0500 Body mass index (BMI) [Ratio] 24.13 kg/m2 Oli Avery MD Work Phone: [facility] 04-19-2024 16:00-0500 Body temperature 98.01 [degF] Oli Avery MD Work Phone: [facility] 04-19-2024 16:00-0500 Body weight 65.77 kg Oli Avery MD Work Phone: [facility] 04-19-2024 16:00-0500 Diastolic blood pressure 60 mm[Hg] Oli Avery MD Work Phone: [facility] 04-19-2024 16:00-0500 Heart rate 83 /min Oli Avery MD Work Phone: [facility] 04-19-2024 16:00-0500 Respiratory rate 14 /min Oli Avery MD Work Phone: [facility] 04-19-2024 16:00-0500 SaO2% (BldA) [Mass fraction] 100 % Oli Avery MD Work Phone: [facility] 04-19-2024 16:00-0500 Systolic blood pressure 158 mm[Hg] Oli Avery MD Work Phone: [facility] 03-26-2024 12:23-0500 Blood Pressure Location SHEILA CHAN MD [facility] 03-26-2024 12:23-0500 Blood Pressure Method SHEILA CHAN MD [facility] 03-26-2024 12:23-0500 Body temperature 97.7 [degF] SHEILA CHAN MD [facility] 03-26-2024 12:23-0500 Diastolic Blood Pressure Non-Invasive 72 mm[Hg] SHEILA CHAN MD [facility] 03-26-2024 12:23-0500 Heart rate 77 /min SHEILA CHAN MD [facility] 03-26-2024 12:23-0500 Respiratory rate 18 /min SHEILA CHAN MD [facility] 03-26-2024 12:23-0500 Systolic Blood Pressure Non-Invasive 120 mm[Hg] SHEILA CHAN MD [facility] 02-03-2024 08:20-0500 Diastolic blood pressure 72 mm[Hg] [facility] Work Phone: [facility] 02-03-2024 08:20-0500 Systolic blood pressure 139 mm[Hg] [facility] Work Phone: [facility] 02-03-2024 07:48-0500 Body temperature 98.01 [degF] [facility] Work Phone: [facility] 02-03-2024 07:48-0500 Heart rate 61 /min [facility] Work Phone: [facility] 02-03-2024 07:48-0500 SaO2% (BldA) [Mass fraction] 98 % [facility] Work Phone: [facility] 11-11-2023 10:00-0400 Diastolic blood pressure 72 mm[Hg] [facility] Work Phone: [facility] 11-11-2023 10:00-0400 Heart rate 88 /min [facility] Work Phone: [facility] 11-11-2023 10:00-0400 Systolic blood pressure 166 mm[Hg] [facility] Work Phone: [facility] 11-11-2023 09:10-0400 Body mass index (BMI) [Ratio] 25.79 kg/m2 Luis Uniquei DO Work Phone: [facility] 11-11-2023 09:10-0400 Body temperature 98.01 [degF] Luis Uniquei DO Work Phone: [facility] 11-11-2023 09:10-0400 Body weight 70.31 kg Luis Uniquei DO Work Phone: [facility] 11-11-2023 09:10-0400 Diastolic blood pressure 91 mm[Hg] Luis Uniquei DO Work Phone: [facility] 11-11-2023 09:10-0400 Heart rate 67 /min Luis Uniquei DO Work Phone: [facility] 11-11-2023 09:10-0400 SaO2% (BldA) [Mass fraction] 99 % Luis Uniquei DO Work Phone: [facility] 11-11-2023 09:10-0400 Systolic blood pressure 168 mm[Hg] Luis Uniquei DO Work Phone: [facility] 09-25-2023 12:45-0400 Body height 165.1 cm Oli Avery MD Work Phone: [facility] 09-25-2023 12:45-0400 Body mass index (BMI) [Ratio] 23.3 kg/m2 Oli Avery MD Work Phone: [facility] 09-25-2023 12:45-0400 Body weight 63.5 kg Oli Avery MD Work Phone: [facility] 09-25-2023 12:45-0400 Diastolic blood pressure 48 mm[Hg] Oli Avery MD Work Phone: [facility] 09-25-2023 12:45-0400 Heart rate 74 /min Oli Avery MD Work Phone: [facility] 09-25-2023 12:45-0400 SaO2% (BldA) [Mass fraction] 99 % Oli Avery MD Work Phone: [facility] 09-25-2023 12:45-0400 Systolic blood pressure 151 mm[Hg] Oli Avery MD Work Phone: [facility] 08-19-2023 09:47-0400 Diastolic blood pressure 60 mm[Hg] [facility] Work Phone: [facility] 08-19-2023 09:47-0400 Systolic blood pressure 153 mm[Hg] [facility] Work Phone: [facility] 08-19-2023 08:59-0400 Body mass index (BMI) [Ratio] 24.71 kg/m2 [facility] Work Phone: [facility] 08-19-2023 08:59-0400 Body temperature 97.5 [degF] [facility] Work Phone: [facility] 08-19-2023 08:59-0400 Body weight 67.36 kg [facility] Work Phone: [facility] 08-19-2023 08:59-0400 Heart rate 66 /min [facility] Work Phone: [facility] 08-19-2023 08:59-0400 SaO2% (BldA) [Mass fraction] 100 % [facility] Work Phone: [facility] 05-28-2023 10:23-0400 Body height 165.[address] Katarina Medina Work Phone: [facility] 05-28-2023 10:23-0400 Body mass index (BMI) [Ratio] 24.1 kg/m2 Dr. Katarina Medina Work Phone: [facility] 05-28-2023 10:23-0400 Body temperature 97.6 [degF] Dr. Katarina Medina Work Phone: [facility] 05-28-2023 10:23-0400 Body weight 65.[address] Katarina Medina Work Phone: [facility] 05-28-2023 10:23-0400 Diastolic blood pressure 73 mm[Hg] Dr. Katarina Medina Work Phone: [facility] 05-28-2023 10:23-0400 Heart rate 74 /min Dr. Katarina Medina Work Phone: [facility] 05-28-2023 10:23-0400 SaO2% (BldA) [Mass fraction] 98 % Dr. Katarina Medina Work Phone: [facility] 05-28-2023 10:23-0400 Systolic blood pressure 142 mm[Hg] Dr. Katarina Medina Work Phone: [facility] 05-13-2023 10:01-0500 Diastolic blood pressure 70 mm[Hg] [facility] Work Phone: [facility] 05-13-2023 10:01-0500 Heart rate 58 /min [facility] Work Phone: [facility] 05-13-2023 10:01-0500 Systolic blood pressure 144 mm[Hg] [facility] Work Phone: [facility] 02-11-2023 09:04-0500 Diastolic blood pressure 79 mm[Hg] [facility] Work Phone: [facility] 02-11-2023 09:04-0500 Heart rate 60 /min [facility] Work Phone: [facility] 02-11-2023 09:04-0500 Systolic blood pressure 141 mm[Hg] [facility] Work Phone: [facility] 02-11-2023 08:48-0500 Body temperature 97.7 [degF] [facility] Work Phone: [facility] 01-25-2023 10:28-0500 Body height 165.[address] Katarina Medina Work Phone: [facility] 01-25-2023 10:28-0500 Body mass index (BMI) [Ratio] 24.7 kg/m2 Dr. Katarina Medina Work Phone: [facility] 01-25-2023 10:28-0500 Body temperature 98.2 [degF] Dr. Katarina Medina Work Phone: [facility] 01-25-2023 10:28-0500 Body weight 67.[address] Katarina Medina Work Phone: [facility] 01-25-2023 10:28-0500 Diastolic blood pressure 77 mm[Hg] Dr. Katarina Medina Work Phone: [facility] 01-25-2023 10:28-0500 Heart rate 81 /min Dr. Katarina Medina Work Phone: [facility] 01-25-2023 10:28-0500 Respiratory rate 16 /min Dr. Katarina Medina Work Phone: [facility] 01-25-2023 10:28-0500 SaO2% (BldA) [Mass fraction] 97 % Dr. Katarina Medina Work Phone: [facility] 01-25-2023 10:28-0500 Systolic blood pressure 186 mm[Hg] Dr. Katarina Medina Work Phone: [facility] 01-14-2023 14:12-0500 Body height 165.1 cm Mi Douglas MD Work Phone: [facility] 01-14-2023 14:12-0500 Body temperature 96.69 [degF] Mi Douglas MD Work Phone: [facility] 01-14-2023 14:12-0500 Body weight 67.68 kg Mi Douglas MD Work Phone: [facility] 01-14-2023 14:12-0500 Diastolic blood pressure 92 mm[Hg] Mi Douglas MD Work Phone: [facility] 01-14-2023 14:12-0500 Heart rate 70 /min Mi Douglas MD Work Phone: [facility] 01-14-2023 14:12-0500 SaO2% (BldA) [Mass fraction] 96 % Mi Douglas MD Work Phone: [facility] 01-14-2023 14:12-0500 Systolic blood pressure 150 mm[Hg] Mi Douglas MD Work Phone: [facility] 12-21-2022 11:43-0400 Body temperature 97.9 [degF] Pauline Muse APRN.BATTERY TESTER Work Phone: [facility] 12-21-2022 11:43-0400 Body weight 67.31 kg Pauline Muse APRN.BATTERY TESTER Work Phone: [facility] 12-21-2022 11:43-0400 Diastolic blood pressure 73 mm[Hg] Pauline Muse APRN.BATTERY TESTER Work Phone: [facility] 12-21-2022 11:43-0400 Heart rate 66 /min Pauline Muse APRN.BATTERY TESTER Work Phone: [facility] 12-21-2022 11:43-0400 Respiratory rate 18 /min Pauline Muse APRN.BATTERY TESTER Work Phone: [facility] 12-21-2022 11:43-0400 SaO2% (BldA) [Mass fraction] 98 % Pauline Muse APRN.BATTERY TESTER Work Phone: [facility] 12-21-2022 11:43-0400 Systolic blood pressure 189 mm[Hg] Pauline Muse APRN.BATTERY TESTER Work Phone: [facility] 12-15-2022 10:58-0400 Body temperature 97.59 [degF] Pauline Muse APRN.BATTERY TESTER Work Phone: [facility] 12-15-2022 10:58-0400 Body weight 67.13 kg Pauline Muse APRN.BATTERY TESTER Work Phone: [facility] 12-15-2022 10:58-0400 Diastolic blood pressure 72 mm[Hg] Pauline Muse APRN.BATTERY TESTER Work Phone: [facility] 12-15-2022 10:58-0400 Heart rate 80 /min Pauline Muse APRN.BATTERY TESTER Work Phone: [facility] 12-15-2022 10:58-0400 Respiratory rate 16 /min Pauline Muse APRN.BATTERY TESTER Work Phone: [facility] 12-15-2022 10:58-0400 SaO2% (BldA) [Mass fraction] 98 % Pauline Muse APRN.BATTERY TESTER Work Phone: [facility] 12-15-2022 10:58-0400 Systolic blood pressure 124 mm[Hg] Pauline Muse APRN.BATTERY TESTER Work Phone: [facility] 12-09-2022 08:01-0400 Body height 165.[address] Katarina Medina Work Phone: [facility] 12-09-2022 08:01-0400 Body mass index (BMI) [Ratio] 24.8 kg/m2 Dr. Katarina Mdeina Work Phone: [facility] 12-09-2022 08:01-0400 Body temperature 97.9 [degF] Dr. Katarina Medina Work Phone: [facility] 12-09-2022 08:01-0400 Body weight 67.[address] Katarina Medina Work Phone: [facility] 12-09-2022 08:01-0400 Diastolic blood pressure 73 mm[Hg] Dr. Katarina Medina Work Phone: [facility] 12-09-2022 08:01-0400 Heart rate 60 /min Dr. Katarina Medina Work Phone: [facility] 12-09-2022 08:01-0400 Respiratory rate 16 /min Dr. Katarina Medina Work Phone: [facility] 12-09-2022 08:01-0400 SaO2% (BldA) [Mass fraction] 97 % Dr. Katarina Medina Work Phone: [facility] 12-09-2022 08:01-0400 Systolic blood pressure 148 mm[Hg] Dr. Katarina Medina Work Phone: [facility] 10-28-2022 14:50-0400 Body temperature 97.59 [degF] Eva Athy PA-C Work Phone: [facility] 10-28-2022 14:50-0400 Body weight 67.41 kg Eva Athy PA-C Work Phone: [facility] 10-28-2022 14:50-0400 Diastolic blood pressure 72 mm[Hg] Eva Athy PA-C Work Phone: [facility] 10-28-2022 14:50-0400 Heart rate 65 /min Eva Athy PA-C Work Phone: [facility] 10-28-2022 14:50-0400 Respiratory rate 18 /min Eva Athy PA-C Work Phone: [facility] 10-28-2022 14:50-0400 SaO2% (BldA) [Mass fraction] 97 % Eva Athy PA-C Work Phone: [facility] 10-28-2022 14:50-0400 Systolic blood pressure 195 mm[Hg] Eva Athy PA-C Work Phone: [facility] 08-14-2022 09:55-0400 Diastolic blood pressure 62 mm[Hg] Treatment Wstr Work Phone: [facility] 08-14-2022 09:55-0400 Heart rate 78 /min Treatment Wstr Work Phone: [facility] 08-14-2022 09:55-0400 Systolic blood pressure 148 mm[Hg] Treatment Wstr Work Phone: [facility] 07-15-2022 07:27-0400 Body temperature 98.49 [degF] Izabel Flaquita EMBOSSING CLERK.BATTERY TESTER Work Phone: [facility] 07-15-2022 07:27-0400 Body weight 67.95 kg Izabel Flaquita EMBOSSING CLERK.BATTERY TESTER Work Phone: [facility] 07-15-2022 07:27-0400 Diastolic blood pressure 62 mm[Hg] Izabel Flaquita EMBOSSING CLERK.BATTERY TESTER Work Phone: [facility] 07-15-2022 07:27-0400 Heart rate 88 /min Izabel Flaquita EMBOSSING CLERK.BATTERY TESTER Work Phone: [facility] 07-15-2022 07:27-0400 Respiratory rate 18 /min Izabel Flaquita EMBOSSING CLERK.BATTERY TESTER Work Phone: [facility] 07-15-2022 07:27-0400 SaO2% (BldA) [Mass fraction] 98 % Izabel Flaquita EMBOSSING CLERK.BATTERY TESTER Work Phone: [facility] 07-15-2022 07:27-0400 Systolic blood pressure 128 mm[Hg] Izabel Flaquita EMBOSSING CLERK.BATTERY TESTER Work Phone: [facility] 05-22-2022 09:00-0400 Diastolic blood pressure 67 mm[Hg] Treatment Wstr Work Phone: [facility] 05-22-2022 09:00-0400 Heart rate 82 /min Treatment Wstr Work Phone: [facility] 05-22-2022 09:00-0400 Systolic blood pressure 160 mm[Hg] Treatment Wstr Work Phone: [facility] 05-22-2022 08:12-0400 Body height 164.7 cm Luis Calhouni DO Work Phone: [facility] 05-22-2022 08:12-0400 Body temperature 98.71 [degF] Luis Ron DO Work Phone: [facility] 05-22-2022 08:12-0400 Body weight 68.27 kg Luis Calhouni DO Work Phone: [facility] 05-22-2022 08:12-0400 Diastolic blood pressure 70 mm[Hg] Luis Calhouni DO Work Phone: [facility] 05-22-2022 08:12-0400 Heart rate 74 /min Luis Uniquei DO Work Phone: [facility] 05-22-2022 08:12-0400 SaO2% (BldA) [Mass fraction] 99 % Luis Uniquei DO Work Phone: [facility] 05-22-2022 08:12-0400 Systolic blood pressure 158 mm[Hg] Luis Calhouni DO Work Phone: [facility] 01-08-2022 15:09-0400 Body height 165.1 cm Mi Douglas MD Work Phone: [facility] 01-08-2022 15:09-0400 Body temperature 97.9 [degF] Mi Douglas MD Work Phone: [facility] 01-08-2022 15:09-0400 Body weight 70.31 kg Mi Douglas MD Work Phone: [facility] 01-08-2022 15:09-0400 Diastolic blood pressure 58 mm[Hg] Mi Douglas MD Work Phone: [facility] 01-08-2022 15:09-0400 Heart rate 75 /min Mi Douglas MD Work Phone: [facility] 01-08-2022 15:09-0400 SaO2% (BldA) [Mass fraction] 97 % Mi Douglas MD Work Phone: [facility] 01-08-2022 15:09-0400 Systolic blood pressure 140 mm[Hg] Mi Douglas MD Work Phone: [facility] 12-20-2021 10:04-0400 Body temperature 98.1 [degF] Dr. Katarina Medina Work Phone: [facility] Work Phone: 12-20-2021 10:04-0400 Body weight 69.[address] Katarina Medina Work Phone: [facility] Work Phone: 12-20-2021 10:04-0400 Diastolic blood pressure 80 mm[Hg] Dr. Katarina Medina Work Phone: [facility] Work Phone: 12-20-2021 10:04-0400 Heart rate 66 /min Dr. Katarina Medina Work Phone: [facility] Work Phone: 12-20-2021 10:04-0400 Respiratory rate 16 /min Dr. Katarina Medina Work Phone: [facility] Work Phone: 12-20-2021 10:04-0400 SaO2% (BldA) [Mass fraction] 96 % Dr. Katarina Medina Work Phone: [facility] Work Phone: 12-20-2021 10:04-0400 Systolic blood pressure 156 mm[Hg] Dr. Katarina Medina Work Phone: [facility] Work Phone: 11-21-2021 09:23-0400 Diastolic blood pressure 64 mm[Hg] Treatment Wstr Work Phone: [facility] 11-21-2021 09:23-0400 Heart rate 59 /min Treatment Wstr Work Phone: [facility] 11-21-2021 09:23-0400 Systolic blood pressure 164 mm[Hg] Treatment Wstr Work Phone: [facility] 11-21-2021 08:46-0400 Body temperature 98.1 [degF] Treatment Wstr Work Phone: [facility] 11-21-2021 08:46-0400 Respiratory rate 16 /min Treatment Wstr Work Phone: [facility] 10-31-2021 15:36-0400 Diastolic blood pressure 51 mm[Hg] Dr. Katarina Medina Work Phone: [facility] Work Phone: 10-31-2021 15:36-0400 Heart rate 52 /min Dr. Katarina Medina Work Phone: [facility] Work Phone: 10-31-2021 15:36-0400 Respiratory rate 16 /min Dr. Katarina Medina Work Phone: [facility] Work Phone: 10-31-2021 15:36-0400 Systolic blood pressure 149 mm[Hg] Dr. Katarina Medina Work Phone: [facility] Work Phone: 10-31-2021 12:44-0400 Body height 165.[address] Katarina Medina Work Phone: [facility] Work Phone: 10-31-2021 12:44-0400 Body mass index (BMI) [Ratio] 26.2 kg/m2 Dr. Katarina Medina Work Phone: [facility] Work Phone: 10-31-2021 12:44-0400 Body temperature 98.1 [degF] Dr. Katarina Medina Work Phone: [facility] Work Phone: 10-31-2021 12:44-0400 Body weight 71.[address] Katarina Medina Work Phone: [facility] Work Phone: 10-31-2021 12:44-0400 SaO2% (BldA) [Mass fraction] 98 % Dr. Katarina Medina Work Phone: [facility] Work Phone: 08-15-2021 09:42-0400 Diastolic blood pressure 58 mm[Hg] Treatment Wstr Work Phone: [facility] 08-15-2021 09:42-0400 Heart rate 72 /min Treatment Wstr Work Phone: [facility] 08-15-2021 09:42-0400 Systolic blood pressure 152 mm[Hg] Treatment Wstr Work Phone: [facility] 08-15-2021 09:16-0400 Body temperature 97.59 [degF] Treatment Wstr Work Phone: [facility] 08-02-2021 13:37-0400 Body mass index (BMI) [Ratio] 25.3 kg/m2 Dr. Katarina Medina Work Phone: [facility] Work Phone: 08-02-2021 13:37-0400 Body temperature 98.1 [degF] Dr. Katarina Medina Work Phone: [facility] Work Phone: 08-02-2021 13:37-0400 Body weight 71.[address] Katarina Medina Work Phone: [facility] Work Phone: 08-02-2021 13:37-0400 Diastolic blood pressure 62 mm[Hg] Dr. Katarina Medina Work Phone: [facility] Work Phone: 08-02-2021 13:37-0400 Heart rate 63 /min Dr. Katarina Medina Work Phone: [facility] Work Phone: 08-02-2021 13:37-0400 Respiratory rate 16 /min Dr. Katarina Medina Work Phone: [facility] Work Phone: 08-02-2021 13:37-0400 SaO2% (BldA) [Mass fraction] 97 % Dr. Katarina Medina Work Phone: [facility] Work Phone: 08-02-2021 13:37-0400 Systolic blood pressure 132 mm[Hg] Dr. Katarina Medina Work Phone: [facility] Work Phone: 08-02-2021 13:37-0400 Body height 167.[address] Katarina Medina Work Phone: [facility] Work Phone: 08-02-2021 13:37-0400 Body mass index (BMI) [Ratio] 25.3 kg/m2 Dr. Katarina Medina Work Phone: [facility] Work Phone: 08-02-2021 13:37-0400 Body temperature 98.1 [degF] Dr. Katarina Medina Work Phone: [facility] Work Phone: 08-02-2021 13:37-0400 Body weight 71.[address] Katarina Medina Work Phone: [facility] Work Phone: 08-02-2021 13:37-0400 Diastolic blood pressure 62 mm[Hg] Dr. Katarina Medina Work Phone: [facility] Work Phone: 08-02-2021 13:37-0400 Heart rate 63 /min Dr. Katarina Medina Work Phone: [facility] Work Phone: 08-02-2021 13:37-0400 Respiratory rate 16 /min Dr. Katarina Medina Work Phone: [facility] Work Phone: 08-02-2021 13:37-0400 SaO2% (BldA) [Mass fraction] 97 % Dr. Katarina Medina Work Phone: [facility] Work Phone: 08-02-2021 13:37-0400 Systolic blood pressure 132 mm[Hg] Dr. Katarina Medina Work Phone: [facility] Work Phone: 05-28-2021 09:29-0400 Body height 167.[address] Katarina Medina Work Phone: [facility] Work Phone: 05-28-2021 09:29-0400 Body mass index (BMI) [Ratio] 25 kg/m2 Dr. Katarina Medina Work Phone: [facility] Work Phone: 05-28-2021 09:29-0400 Body temperature 97.9 [degF] Dr. Katarina Medina Work Phone: [facility] Work Phone: 05-28-2021 09:29-0400 Body weight 70.[address] Katarina Medina Work Phone: [facility] Work Phone: 05-28-2021 09:29-0400 Diastolic blood pressure 80 mm[Hg] Dr. Katarina Medina Work Phone: [facility] Work Phone: 05-28-2021 09:29-0400 Heart rate 58 /min Dr. Katarina Medina Work Phone: [facility] Work Phone: 05-28-2021 09:29-0400 Respiratory rate 16 /min Dr. Katarina Medina Work Phone: [facility] Work Phone: 05-28-2021 09:29-0400 SaO2% (BldA) [Mass fraction] 97 % Dr. Katarina Medina Work Phone: [facility] Work Phone: 05-28-2021 09:29-0400 Systolic blood pressure 138 mm[Hg] Dr. Katarina Medina Work Phone: [facility] Work Phone: Encounters Encounter Date Encounter Type Care Provider Facility Start: 01-13-2025 End: 01-13-2025 Emergency department patient visit [place] Enriquez Facility:[facility] Start: 01-13-2025 End: 01-13-2025 ambulatory Alan REED Facility:[facility] Start: 01-04-2025 End: 01-04-2025 ambulatory KATARINA MEDINA Facility:[facility] Start: 01-03-2025 End: 01-03-2025 ambulatory KATARINA MEDINA Facility:[facility] Start: 12-27-2024 End: 12-27-[address] Katarina Medina MD -[facility] Work Phone: Start: 12-27-2024 End: 12-27-[address] 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 Katarina Medina MD -[facility] Work Phone: Start: 09-15-2024 End: 09-15-[address] Katarina Medina MD Work Phone: -[facility] Start: 09-12-2024 End: 09-12-2024 Emergency department patient [...] End: 09-01-2024 Patient encounter procedure [place] -[facility] Work Phone: Start: 09-01-2024 End: 09-01-[address] Katarina Medina MD Work Phone: [facility] Work Phone: Start: 08-31-2024 End: 08-31-2024 ambulatory KATARINA MEDINA Facility:[facility] Start: 08-27-2024 End: 08-30-2024 Telephone encounter Luis Ron DO Work Phone: Hematology/Oncology Comment on above: Patient Update Start: 07-30-2024 End: 07-30-2024 Patient encounter procedure Pascual Friend DO [facility] Work Phone: Start: 07-30-2024 End: 07-30-2024 ambulatory Katarina Medina Facility:[facility] Start: 07-20-2024 End: 07-20-2024 Infusion Center Treatment Rm 6 [facility] Work Phone: Hematology/Oncology Comment on above: Disorder of iron metabolism (Primary Dx) Start: 07-19-2024 End: 07-19-2024 ambulatory KATARINA MEDINA Facility:[facility] Start: 07-16-2024 End: 07-16-[address] Katarina Medina MD Work Phone: [facility] Work Phone: Start: 07-16-2024 End: 07-16-2024 Patient encounter procedure Pascualethel Fletcher DO -Laboratory Work Phone: Start: 07-16-2024 End: 07-16-2024 Patient encounter procedure Pascualethel Fletcher DO [facility] Work Phone: Start: 07-16-2024 End: 07-16-2024 ambulatory Katarina Medina Facility:[facility] Start: 07-16-2024 End: 07-16-2024 ambulatory Katarina Medina Facility:[facility] Start: 06-30-2024 End: 06-30-[address] Katarina Medina MD -[facility] Work Phone: Start: 06-30-2024 End: 06-30-2024 ambulatory [...] Start: 06-16-2024 End: 06-16-2024 ambulatory KATARINA MEDINA Facility:[facility] Start: 06-08-2024 End: 06-08-2024 ambulatory [facility] Facility:[facility] Start: 06-02-2024 End: 06-02-2024 Chart abstracting Jacqueline Griffiths MD Work Phone: Ophthalmology Start: 05-27-2024 End: 05-27-2024 ambulatory OLI AVERY Facility:[facility] Start: 05-27-2024 End: 05-27-2024 Patient encounter procedure Airam Alvarado APRN.BATTERY TESTER Work Phone: Functional Medicine Comment on above: Alteration in metabolic function (Primar y Dx); Brain fog; Allergy, initial encounter; High vitamin D level Start: 05-20-2024 End: 05-20-2024 E-mail encounter from caregiver Airam Jerryjasmyn BARDALESBATTERY TESTER Work Phone: Functional Medicine Start: 05-20-2024 End: 05-20-2024 Nutrition therapy Airam Alvarado APRN.BATTERY TESTER Work Phone: Functional Medicine Comment on above: CF Nutrition Questionnaire Start: 04-27-2024 End: 04-27-2024 Infusion Center Treatment Rm 6 [facility] Work Phone: Hematology/Oncology Comment on above: Hereditary hemochromatosis (HCC) (Primar y Dx); Disorder of iron metabolism Start: 04-26-2024 End: 04-26-2024 ambulatory KATARINAFARIDEH MEDINA Facility:[facility] Start: 04-19-2024 End: 04-19-2024 Office outpatient visit 25 minutes Oli Avery MD Work Phone: [facility] Comment on above: Silent cerebral infarction (HCC) (Primar y Dx); Mild cognitive impairment; Functional gastrointestinal disorder Start: 04-19-2024 End: 04-19-2024 ambulatory KATARINA Bony ADAM Facility:[facility] Start: 03-26-2024 End: 03-26-2024 Emergency department patient visit SHEILA CHAN MD [facility] Start: 03-25-2024 End: 03-25-2024 ambulatory KATARINA MEDINA Facility:[facility] Start: 02-11-2024 End: 02-11-2024 ambulatory Katarina Adam Facility:[facility] Start: 02-03-2024 End: 02-03-2024 Infusion Center Treatment Rm 4 [facility] Work Phone: Hematology/Oncology Comment on above: Disorder of iron metabolism (Primary Dx) Start: 02-02-2024 End: 02-02-2024 Orders Only Luis Ron DO Work Phone: Hematology/Oncology Comment on above: Hereditary hemochromatosis (HCC) (Primar y Dx) Start: 01-16-2024 End: 01-16-2024 ambulatory LUIS RON Facility:[facility] Start: 01-16-2024 End: 01-16-2024 Subsequent hospital visit by physician [facility] Mammogram Comment on above: [...] Telephone encounter Mi Douglas MD Work Phone: [address] [place] [address] Start: 09-29-2023 Telephone encounter Oli Avery MD Work Phone: [facility] Comment on above: 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 (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 remedios t) Start: 09-25-2023 [...] 08-19-2023 Infusion Center Treatment Rm 7 [facility] Work Phone: Hematology/Oncology Comment on above: Disorder of iron metabolism (Primary Dx) Start: 08-15-2023 ambulatory Airam Martinez APRN.BATTERY TESTER Work Phone: Neurology Comment on above: Update Start: 08-15-2023 E-mail encounter from caregiver Airam Michelle BARDALESBATTERY TESTER Work Phone: Neurology Start: 08-15-2023 End: 08-15-2023 Patient encounter procedure Airam Martinez APRN.BATTERY TESTER Work Phone: Neurology Comment on above: Subjective memory complaints (Primary Dx ); Impaired memory; Forgetfulness Start: 08-11-2023 Telephone encounter Luis Ron DO Work Phone: Hematology/Oncology Comment on above: Patient Question Start: 08-09-2023 End: 08-09-2023 Patient encounter procedure Pauline Muse APRN.BATTERY TESTER Work Phone: [facility] Comment on above: Medication management (Primary Dx) Start: 07-01-2023 Non-patient / Non-visit Dr. Katarina Medina Work Phone: [facility] Start: 07-01-2023 End: 07-01-[address] Katarina Medina Work Phone: [facility] Work Phone: Start: 07-01-2023 End: 07-01-[address] Katarina Medina Work Phone: [facility]Cardiovascula [facility] Services Work Phone: Start: 05-28-2023 End: 05-28-[address] Katarina Medina Work Phone: [facility] Work Phone: Start: 05-13-2023 End: 05-13-2023 Infusion Center Treatment Rm 9 [facility] Work Phone: Hematology/Oncology Comment on above: Disorder of iron metabolism (Primary Dx) Start: 05-08-2023 Telephone encounter Sonia Martinez APRN.CNP Work Phone: Hematology/Oncology Comment on above: Patient Update Start: 02-14-2023 Telephone encounter Mi Douglas MD Work Phone: General Surgery Start: 02-11-2023 End: 02-11-2023 Infusion Center Treatment Rm 12 [facility] Work Phone: Hematology/Oncology Comment on above: Disorder of iron metabolism (Primary Dx) Start: 02-10-2023 Orders Only Luis Sydnee Ron DO Work Phone: Hematology/Oncology Comment on above: Hereditary hemochromatosis (HCC) (Primar y Dx); Secondary polycythemia Start: 01-27-2023 End: 01-27-[address] Katarina Medina Work Phone: [facility] Work Phone: Start: 01-27-2023 End: 01-27-[address] Katarina Medina Work Phone: [facility]-Laboratory, Specimen Work Phone: Start: 01-25-2023 End: 01-25-[address] Katarina Medina Work Phone: [facility] Work Phone: Start: 01-14-2023 End: 01-14-2023 Patient encounter procedure Mi Douglas MD Work Phone: General Surgery Comment on above: Screening for colon cancer (Primary Dx) Start: 01-07-2023 End: 01-07-2023 Subsequent hospital visit by physician Screen [facility] Mammogram Comment on above: Screening breast examination [Z12.39] Start: 12-26-2022 Telephone encounter Pauline Muse APRZakiaBATTERY TESTER Work Phone: [facility] Comment on above: Results Start: 12-21-2022 End: 12-21-2022 Patient encounter procedure Pauline Muse APRN.BATTERY TESTER Work Phone: [facility] Comment on above: Rectal bleeding (Primary Dx) Start: 12-15-2022 End: 12-15-2022 Patient encounter procedure Pauline Muse APRN.BATTERY TESTER Work Phone: [facility] Comment on above: Urinary frequency (Primary Dx); Recurrent UTI (urinary tract infection) Start: 12-09-2022 End: 12-09-[address] [facility] Start: 12-09-2022 End: 12-09-[address] Katarina Medina Work Phone: [facility] Work Phone: Start: 11-01-2022 End: 11-01-[address] Katarina Medina Work Phone: [facility] Work Phone: Start: 11-01-2022 End: 11-01-[address] [facility]ina [facility]: Start: 10-28-2022 End: 10-28-2022 Patient encounter procedure Eva Heard PA-C Work Phone: [facility] Comment on above: Throat irritation (Primary Dx) Start: 10-25-2022 Telephone encounter Mi Douglas MD Work Phone: [facility] Adult Comment on above: Orders Start: 10-24-2022 Telephone encounter Mi Douglas MD Work Phone: General Surgery Comment on above: Orders Start: 08-14-2022 End: 08-14-2022 Infusion Center Treatment Rm 7 [facility] Work Phone: Hematology/Oncology Comment on above: Disorder of iron metabolism (Primary Dx) ; Hereditary hemochromatosis (HCC) Start: 08-12-2022 Orders Only Luis Ron DO Work Phone: Hematology/Oncology Comment on above: Hereditary hemochromatosis (HCC) (Primar y Dx); Secondary polycythemia; History of ductal carcinoma in situ (DCIS) of breast Start: 07-15-2022 End: 07-15-2022 Patient encounter procedure Izabel Sams MARCIAL.BATTERY TESTER Work Phone: [facility] Comment on above: URI with cough and congestion (Primary D x) Start: 06-13-2022 Telephone encounter Luis Ron DO Work Phone: Hematology/Oncology Comment on above: Results ( Liver) Start: 06-03-2022 End: 06-03-2022 Subsequent hospital visit by physician [facility] Mob 2 Work Phone: Radiology Comment [...] procedure Luis Ron DO Work Phone: [facility] Start: 05-21-2022 Orders Only Luis Ron [...] Start: 01-04-2022 Documentation procedure Mammography Coordinator [facility] Start: 01-04-2022 Letter encounter Mammography Coordinator [facility] Department Start: 01-03-2022 End: 01-03-2022 Subsequent hospital visit by physician Screen Mamm[facility] Mammogram Comment on above: 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 Katarina Medina Work Phone: [facility] Work Phone: Start: 12-20-2021 End: 12-20-[address] Katarina Medina Work Phone: [facility]-Laboratory Start: 12-20-2021 End: 12-20-[address] Katarina Medina Work Phone: [facility] Start: 11-21-2021 End: 11-21-2021 Infusion Center Treatment Rm 11 [facility] Work Phone: Hematology/Oncology Comment on above: Disorder of iron metabolism (Primary Dx) Start: 10-31-2021 End: 10-31-2021 Emergency department patient visit Dr. Katarina Medina Work Phone: [facility]-Emergency Department Start: 10-30-2021 Telephone encounter Luis Ron DO Work Phone: Hematology/Oncology Comment on above: Future Appointment Start: 08-16-2021 End: 08-16-[address] Katarina Medina Work Phone: [facility]-Outpatient Bone Densitometry Start: 08-15-2021 End: 08-15-2021 Infusion Center Treatment Rm 6 [facility] Work Phone: Hematology/Oncology Comment on above: Hereditary hemochromatosis (HCC) (Primar y Dx); Disorder of iron metabolism Start: 08-02-2021 End: 08-02-[address] [facility]arina Medina [facility] Start: 08-02-2021 End: 08-02-[address] Katarina Medina Work Phone: [facility] Internal Medicine Start: 07-18-2021 Telephone encounter Luis Sydnee Ron Work Phone: Hematology/Oncology Comment on above: Appointment Start: 05-28-2021 End: 05-28-[address] [facility]arina Medina [facility] Start: 05-28-2021 End: 05-28-[address] Katarina Medina Work Phone: [facility] Internal Medicine Start: 03-23-2021 End: 03-23-[address] Katarina Medina [facility] Procedures Date Procedure Procedure Detail Performing [...] 3d rendering w/interp&postproc diff work station Airam Brightabelardo EMBOSSING CLERK.BATTERY TESTER Work Phone: Start: 09-02-2023 Mri brain brain stem w/o contrast material Airam Martinez EMBOSSING CLERK.BATTERY TESTER Work Phone: Start: 01-27-2023 Urine culture Dr. Katarina Medina Work Phone: Start: 01-07-2023 Screening mammography bi 2-view breast inc cory Douglas MD Work Phone: Start: 12-15-2022 Urnls dip stick/tablet rgnt auto w/o microscopy Zo Boyce EMBOSSING CLERK.BATTERY TESTER Work Phone: Start: 06-03-2022 Us abdominal real time w/image limited Luis Sydnee Calhounjerri DO Work Phone: Start: 01-03-2022 Screening mammography bi 2-view breast inc cory Douglas MD Work Phone: Start: 10-31-2021 CT of head without contrast Dr. Katarina Meidna Work Phone: Start: 08-16-2021 Dual energy X-ray [...] DTaP,Tdap,Td Vaccine (3 - Td or Tdap) [facility] Start: 01-31-2028 Urine microalbumin profile [facility] Start: 10-12-2027 Diabetes Screening Diabetes Screening [facility] Start: 02-01-2027 Diabetes Screening Diabetes Screening [facility] Start: 11-06-2026 Diabetes Screening Diabetes Screening [facility] Start: 09-25-2026 Diabetes Screening Diabetes Screening [facility] Start: 05-11-2026 Diabetes Screening Diabetes Screening [facility] Start: 10-12-2025 End: 10-12-2025 ambulatory [facility] Comment on above: CBC/IRON STUDIES/CMP/AFP 1YR OV/EARLY LABS Start: 05-21-2025 DIABETES SCREEN DIABETES SCREEN [facility] Start: 05-21-2025 Diabetes Screening Diabetes Screening [facility] Start: 01-13-2025 Emergency department patient visit Registered Emergency -Emergency Department Work Phone: Start: 01-13-2025 End: 01-13-2025 Patient encounter procedure Departed Physician/Provider [facility] Work Phone: Start: 01-04-2025 End: 01-04-2025 ambulatory 01/04/2025 9:00 AM EDT [facility] Hematology/Oncology [address] [place] [address] Q3MO PHLEBO/LAB DAY PRIOR* Hematology/Oncology Comment on above: Q3MO PHLEBO/LAB DAY PRIOR* Start: 01-03-2025 End: 01-03-2025 ambulatory 01/03/2025 8:00 AM EDT Results Only [facility] [address] [place] [address] (SO)CBC/FERRITN* [facility] Comment on above: (SO)CBC/FERRITN* Start: 12-27-2024 T4 free measurement [facility] Start: 12-27-2024 Thyroid stimulating hormone measurement [facility] Start: 12-27-2024 Triiodothyronine, free measurement [facility] Start: 12-27-2024 Vitamin B12 measurement [facility] Start: 12-27-2024 Vitamin B6 measurement [facility] Start: 12-27-2024 Vitamin D, 25-hydroxy measurement [facility] Start: 12-01-2024 End: 12-01-2024 [facility] Start: 11-10-2024 End: 11-10-2024 ambulatory [facility] Comment on above: CBC/CMP/AFR/IRON* 1YR/PHLEBO TODAY* Start: 11-08-2024 Influenza vaccination [facility] Start: 10-12-2024 End: 10-12-2024 ambulatory Hematology/Oncology Comment on above: 1YR/LAB 10/11/PHLEBO TODAY* Q3MO PHLEBO/LAB 10/11/ OV EARLY* pt request lab day prior to tx Start: 10-11-2024 End: 10-11-2024 ambulatory 10/11/2024 8:00 AM EDT Results Only [facility] [address] [place] [address] (SO)CBC/CMP/IRON STUDIES/AFR* [facility] Comment on above: (SO)CBC/CMP/IRON STUDIES/AFR* Start: 09-12-2024 End: 09-12-2024 [facility] Start: 09-12-2024 X-ray of knee, four or more views Knee 4 or More Views [facility] Start: 09-12-2024 XR Knee GE 4 Views [facility] Start: 08-23-2024 End: 08-23-2024 Patient encounter procedure 08/23/2024 10:15 AM EDT Office Visit Functional Medicine [address] [address] Airam Alvarado APRN.BATTERY TESTER [address] [address] 12 week follow up Functional Medicine Comment on above: 12 week follow up Start: 07-30-2024 Patient referral [facility] Work Phone: Start: 07-20-2024 End: 07-20-2024 ambulatory 07/20/2024 9:00 AM EDT Infusion Center Hematology/Oncology [address] [place] [address] Q3MO PHLEBO/LAB 07/19* pt request lab day prior to tx Hematology/Oncology Comment on above: Q3MO PHLEBO/LAB 07/19* pt request lab day prior to tx Start: 07-19-2024 End: 07-19-2024 ambulatory [facility] Laboratory Comment on above: (SO)CBC/CMP/IRON STUDIES* (SO)CBC/FERRITN* Start: 06-16-2024 End: 06-16-2024 Patient encounter procedure Ophthalmology Comment on above: UNCONTROLLED GLAUCOMA POSSIBLE OPEN ANGL E [IOP, dilate, OCT RN FL] UNCONTROLLED GLAUCOMA POSSIBLE OPEN ANGLE Start: 06-15-2024 End: 06-15-2024 ambulatory 06/15/2024 10:15 AM EDT Education Functional Medicine [address] [phone] Dorita Lundy RD nutrtition Functional Medicine Comment on above: nutrtition Start: 06-03-2024 End: 06-03-2024 ambulatory 06/03/2024 10:30 AM EDT Education Functional Medicine [address] [address] Sharlene Alberts, [facility] ED [address] [phone] health sustainability coach Functional Medicine Comment on above: health sustainability coach Start: 05-27-2024 End: 05-27-2024 ambulatory 05/27/2024 3:15 PM EDT Results Only [facility] [address] [place] [address] [id number] LAB [facility] Comment on above: LAB Start: 05-27-2024 End: 08-26-2024 25-hydroxyvitamin D3 [Mass/volume] in Serum or Plasma VITAMIN D 25 HYDROXY Lab Routine Alteration in metabolic function Brain fog Allergy, initial encounter Expected: 05/27/2024, Expires: 08/26/2024 [facility] Comment on above: Expected: 05/27/2024, Expires: Start: 05-27-2024 End: 08-26-2024 Arsenic [Mass/volume] in Blood ARSENIC BLD Lab Routine Alteration in metabolic function Brain fog Allergy, initial encounter Expected: 05/27/2024, Expires: 08/26/2024 [facility] Comment on above: Expected: 05/27/2024, Expires: Start: 05-27-2024 End: 08-26-2024 Cadmium [Mass/volume] in Blood CADMIUM BLOOD Lab Routine Alteration in metabolic function Brain fog Allergy, initial encounter Expected: 05/27/2024, Expires: 08/26/2024 [facility] Comment on above: Expected: 05/27/2024, Expires: Start: 05-27-2024 End: 08-26-2024 Cobalamin (Vitamin B12) [Mass/volume] in Serum or Plasma VITAMIN B12 Lab Routine Alteration in metabolic function Brain fog Allergy, initial encounter Expected: 05/27/2024, Expires: 08/26/2024 [facility] Comment on above: Expected: 05/27/2024, Expires: Start: 05-27-2024 End: 08-26-2024 COPPER BLOOD COPPER BLOOD Lab Routine Alteration in metabolic function Brain fog Allergy, initial encounter Expected: 05/27/2024, Expires: 08/26/2024 [facility] Comment on above: Expected: 05/27/2024, Expires: Start: 05-27-2024 End: 08-26-2024 Folate [Mass/volume] in Serum or Plasma FOLATE, SERUM Lab Routine Alteration in metabolic function Brain fog Allergy, initial encounter Expected: 05/27/2024, Expires: 08/26/2024 [facility] Comment on above: Expected: 05/27/2024, Expires: Start: 05-27-2024 End: 08-26-2024 Hemoglobin A1c in Blood HEMOGLOBIN A1C Lab Routine Alteration in metabolic function Brain fog Allergy, initial encounter Expected: 05/27/2024, Expires: 08/26/2024 [facility] Comment on above: Expected: 05/27/2024, Expires: Start: 05-27-2024 End: 08-26-2024 Insulin [Units/volume] in Serum or Plasma INSULIN, TOTAL, SERUM Lab Routine Alteration in metabolic function Brain fog Allergy, initial encounter Expected: 05/27/2024, Expires: 08/26/2024 [facility] Comment on above: Expected: 05/27/2024, Expires: Start: 05-27-2024 End: 08-26-2024 Lead [Mass/volume] in Blood LEAD BLOOD Lab Routine Alteration in metabolic function Brain fog Allergy, initial encounter Expected: 05/27/2024, Expires: 08/26/2024 [facility] Comment on above: Expected: 05/27/2024, Expires: Start: 05-27-2024 End: 08-26-2024 Magnesium [Mass/volume] in Serum or Plasma MAGNESIUM Lab Routine Alteration in metabolic function Brain fog Allergy, initial encounter Expected: 05/27/2024, Expires: 08/26/2024 [facility] Work Phone: Comment on above: Expected: 05/27/2024, Expires: Start: 05-27-2024 End: 08-26-2024 Mercury [Mass/volume] in Blood MERCURY BLD Lab Routine Alteration in metabolic function Brain fog Allergy, initial encounter Expected: 05/27/2024, Expires: 08/26/2024 [facility] Comment on above: Expected: 05/27/2024, Expires: Start: 05-27-2024 End: 08-26-2024 OMEGACHECK OMEGACHECK Lab Routine Alteration in metabolic function Brain fog Allergy, initial encounter Expected: 05/27/2024, Expires: 08/26/2024 [facility] Comment on above: Expected: 05/27/2024, Expires: Start: 05-27-2024 End: 05-27-2024 Patient encounter procedure 05/27/2024 2:00 PM EDT Office Visit Functional Medicine [address] [address] Airam Alvarado APRN.[facility] [address] [phone] Functional gastrointestinal disorder [K92.9] / BRAIN FOG Functional Medicine Comment on above: Functional gastrointestinal disorder [K9 2.9] / BRAIN FOG Start: 05-27-2024 End: 08-26-2024 THYROGLOBULIN ANTIBODY THYROGLOBULIN ANTIBODY Lab Routine Alteration in metabolic function Brain fog Allergy, initial encounter Expected: 05/27/2024, Expires: 08/26/2024 [facility] Comment on above: Expected: 05/27/2024, Expires: Start: 05-27-2024 End: 08-26-2024 THYROID PEROXIDASE ANTIBODY THYROID PEROXIDASE ANTIBODY Lab Routine Alteration in metabolic function Brain fog Allergy, initial encounter Expected: 05/27/2024, Expires: 08/26/2024 [facility] Comment on above: Expected: 05/27/2024, Expires: Start: 05-27-2024 End: 08-26-2024 Thyrotropin [Units/volume] in Serum or Plasma THYROID STIMULATING HORMONE Lab Routine Alteration in metabolic function Brain fog Allergy, initial encounter Expected: 05/27/2024, Expires: 08/26/2024 [facility] Comment on above: Expected: 05/27/2024, Expires: Start: 05-27-2024 End: 08-26-2024 Thyroxine (T4) free [Mass/volume] in Serum or Plasma T4 FREE/FREE THYROXINE Lab Routine Alteration in metabolic function Brain fog Allergy, initial encounter Expected: 05/27/2024, Expires: 08/26/2024 [facility] Comment on above: Expected: 05/27/2024, Expires: Start: 05-27-2024 End: 08-26-2024 Triiodothyronine (T3) Free [Mass/volume] in Serum or Plasma T3, FREE Lab Routine Alteration in metabolic function Brain fog Allergy, initial encounter Expected: 05/27/2024, Expires: 08/26/2024 [facility] Comment on above: Expected: 05/27/2024, Expires: Start: 05-27-2024 End: 08-26-2024 VITAMIN B1 (THIAMINE), WHOLE BLOOD VITAMIN B1 (THIAMINE), WHOLE BLOOD Lab Routine Alteration in metabolic function Brain fog Allergy, initial encounter Expected: 05/27/2024, Expires: 08/26/2024 [facility] Comment on above: Expected: 05/27/2024, Expires: Start: 05-27-2024 End: 08-26-2024 Zinc [Mass/volume] in Serum or Plasma ZINC BLD Lab Routine Alteration in metabolic function Brain fog Allergy, initial encounter Expected: 05/27/2024, Expires: 08/26/2024 [facility] Comment on above: Expected: 05/27/2024, Expires: Start: 05-16-2024 DIABETES SCREEN DIABETES SCREEN [facility] Start: 04-27-2024 End: 04-27-2024 ambulatory Hematology/Oncology Comment on above: Q3MO PHLEBO/LAB 04/26* pt request lab day prior to tx NEEDS TO SCHEDULE July/Q3MO PHLEBO/LAB 04/26* pt request lab day prior to tx Start: 04-26-2024 End: 04-26-2024 ambulatory [facility] Laboratory Comment on above: (SO)CBC/CMP/IRON STUDIES* Start: 04-01-2024 End: 04-01-2024 Patient encounter procedure 04/01/2024 11:30 AM EST Office Visit [facility] [address] [place] [address] Oli Avery MD [address] [place] [address] 6 month f/u [facility] Comment on above: 6 month f/u Start: 03-10-2024 Advance Directive Discussion Advance Directive Discussion [facility] Start: 03-10-2024 Medicare Advantage Annual Wellness Visit Medicare Advantage Annual Wellness Visit [facility] Start: 02-03-2024 End: 02-03-2024 ambulatory 02/03/2024 8:30 AM EST [facility] Hematology/Oncology [facility] [place] [address] Q3MO PHLEBO/LAB 02/01* pt request lab day prior to tx Hematology/Oncology Comment on above: Q3MO PHLEBO/LAB 02/01* pt request lab da y prior to tx Start: 02-02-2024 End: 05-03-2024 Ferritin [Mass/volume] in Serum or Plasma [facility] Work Phone: Comment on above: Expected: 02/02/2024, Expires: Start: 02-02-2024 End: 05-03-2024 Iron and Iron binding capacity panel - Serum or Plasma [facility] Comment on above: Expected: 02/02/2024, Expires: Start: 02-02-2024 End: 02-02-2024 ambulatory [facility] [place] [facility] Laboratory Comment on above: (SO)CBC/CMP/IRON STUDIES* Start: 01-16-2024 End: 01-16-2024 Patient encounter procedure 01/16/2024 8:30 AM EST Appointment Mammogram [address] [place] [address] Encounter for screening breast examination [Z12.39] Mammogram Comment on above: Encounter for screening breast examinati on [Z12.39] Start: 01-06-2024 End: 01-06-2024 ambulatory 01/06/2024 8:30 AM EDT [facility] Hematology/Oncology [address] [place] [address] Q3MO PHLEBO/LAB 11/06,OV EARLY/* pt request lab day prior to tx Hematology/Oncology Comment on above: Q3MO PHLEBO/LAB 11/06,OV EARLY/* pt reque st lab day prior to tx Start: 01-05-2024 End: 01-05-2024 ambulatory 01/05/2024 8:30 AM EDT Results Only [facility] [address] [place] [address] (SO)CBC/CMP/IRON STUDIES* [facility] Comment on above: (SO)CBC/CMP/IRON STUDIES* Start: 11-11-2023 End: 11-11-2023 ambulatory Hematology/Oncology Comment on above: 6 MO OV/LAB 11/06/?PHLEBO TODAY* Q3MO PHLEBO/LAB 11/06 ,OV EARLY/* pt request lab day prior to tx Start: 11-09-2023 Covid-19 Vaccine ( season) Covid-19 Vaccine () [facility] Start: 11-09-2023 Covid-19 Vaccine ( season) Covid-19 Vaccine ( season) [facility] Start: 11-09-2023 Influenza vaccination [facility] Start: 11-07-2023 End: 11-07-2023 ambulatory 11/07/2023 8:00 AM EDT Results Only [facility] [place] [facility] [address] [place] [address] (SO)CBC/CMP/IRON STUDIES* [facility] Comment on above: (SO)CBC/CMP/IRON STUDIES* Start: 09-26-2023 End: 09-26-2023 ambulatory 09/26/2023 8:45 AM EDT Results Only [facility] [address] [facility] [place] [address] lab [facility] Draw Station Comment on above: lab Start: 09-25-2023 End: 12-25-2023 Hemoglobin A1c in Blood HEMOGLOBIN A1C Lab Routine History of CVA (cerebrovascular accident) Expected: 09/25/2023, Expires: 12/25/2023 [facility] Comment on above: Expected: 09/25/2023, Expires: Start: 09-25-2023 End: 12-25-2023 LIPID PANEL, NONFASTING LIPID PANEL, NONFASTING Lab Routine Hypercholesterolemia Expected: 09/25/2023, Expires: 12/25/2023 [facility] Work Phone: Comment on above: Expected: 09/25/2023, Expires: Start: 09-02-2023 End: 09-02-2023 Patient encounter procedure 09/02/2023 1:30 PM EDT Appointment Radiology [address] [place] [address] MRI BRAIN WO IVCON Radiology Comment on above: MRI BRAIN WO IVCON Start: 08-19-2023 End: 08-19-2023 ambulatory 08/19/2023 9:00 AM EDT Infusion Center Hematology/Oncology [address] [place] [address] Q3MO PHLEBO/LAB 07/31* pt request lab day prior to tx - Hematology/Oncology Comment on above: Q3MO PHLEBO/LAB 07/31* pt request lab day prior to tx - Start: 08-18-2023 End: 08-18-2023 ambulatory [facility] Laboratory Comment on above: (SO)CBC/IRON STUDIES* Start: 08-15-2023 End: 11-14-2023 Cobalamin (Vitamin B12) [Mass/volume] in Serum or Plasma VITAMIN B12 Lab Routine Impaired memory Forgetfulness Expected: 08/15/2023, Expires: 11/14/2023 [facility] Work Phone: Comment on above: Expected: 08/15/2023, Expires: Start: 08-15-2023 End: 11-14-2023 Folate [Mass/volume] in Serum or Plasma FOLATE, SERUM Lab Routine Impaired memory Forgetfulness Expected: 08/15/2023, Expires: 11/14/2023 [facility] Comment on above: Expected: 08/15/2023, Expires: Start: 08-15-2023 End: 11-14-2023 Methylmalonate [Moles/volume] in Serum or Plasma METHYLMALONIC ACID Lab Routine Impaired memory Forgetfulness Expected: 08/15/2023, Expires: 11/14/2023 [facility] Comment on above: Expected: 08/15/2023, Expires: Start: 08-15-2023 End: 11-14-2023 Thyrotropin [Units/volume] in Serum or Plasma THYROID STIMULATING HORMONE Lab Routine Impaired memory Forgetfulness Expected: 08/15/2023, Expires: 11/14/2023 [facility] Comment on above: Expected: 08/15/2023, Expires: Start: 08-15-2023 End: 08-15-2023 Patient encounter procedure 08/15/2023 9:30 AM EDT Office Visit Neurology [address] [place] [address] Airam Martinez APRN.BATTERY TESTER [address] [place] [address] Evaluation for memory Neurology Comment on above: Evaluation for memory Start: 03-10-2023 Advance Directive Discussion Advance Directive Discussion [facility] Start: 03-10-2023 Behavioral Health Screening Behavioral Health Screening [facility] Start: 03-10-2023 Depression Assessment Depression Assessment [facility] Start: 11-08-2022 Covid-19 Vaccine ( season) Covid-19 Vaccine () [facility] Start: 11-08-2022 Influenza vaccination [facility] Start: 06-13-2022 End: 08-13-2022 Chronic hepatitis differentiation between hepatitis B and C virus panel - Serum or Plasma HEP REMOTE PANEL BL Lab Routine Hereditary hemochromatosis (HCC) Expected: 06/13/2022, Expires: 08/13/2022 [facility] Work Phone: Comment on above: Expected: 06/13/2022, Expires: 3 Start: 06-13-2022 End: 08-13-2022 Gamma glutamyl transferase [Enzymatic activity/volume] in Serum or Plasma GGT BLD Lab Routine Hereditary hemochromatosis (HCC) Expected: 06/13/2022, Expires: 08/13/2022 [facility] Work Phone: Comment on above: Expected: 06/13/2022, Expires: 3 Start: 06-13-2022 End: 08-13-2022 Lipid 1996 panel - Serum or Plasma LIPID PANEL BASIC Lab Routine Hereditary hemochromatosis (HCC) Expected: 06/13/2022, Expires: 08/13/2022 [facility] Work Phone: Comment on above: Expected: 06/13/2022, Expires: 3 Start: 05-22-2022 End: 07-22-2022 [id number] [Mass/volume] in Serum or Plasma ALPHA FETOPROTEIN BL Lab Routine Hereditary hemochromatosis (HCC) Expected: 05/22/2022, Expires: 07/22/2022 [facility] Work Phone: Comment on above: Expected: 05/22/2022, Expires: Start: 05-22-2022 End: 07-22-2022 Comprehensive metabolic 2000 panel - Serum or Plasma COMP METABOLIC PANEL Lab STAT Hereditary hemochromatosis (HCC) Expected: 05/22/2022, Expires: 07/22/2022 [facility] Work Phone: Comment on above: Expected: 05/22/2022, Expires: 3 Start: 03-10-2022 ADVANCE DIRECTIVE DISCUSSION ADVANCE DIRECTIVE DISCUSSION [facility] Start: 03-10-2022 DEPRESSION ASSESSMENT DEPRESSION ASSESSMENT [facility] Start: 12-20-2021 [facility] Work Phone: Start: 11-08-2021 Influenza vaccination [facility] Start: 03-10-2021 ADVANCE DIRECTIVE DISCUSSION ADVANCE DIRECTIVE DISCUSSION [facility] Start: 03-10-2021 DEPRESSION ASSESSMENT DEPRESSION ASSESSMENT [facility] Start: 09-14-2020 ANNUAL PCP TEAM CHRONIC DISEASE VISIT ANNUAL PCP TEAM CHRONIC DISEASE VISIT [facility] Start: 2019 RSV Vaccine (1 - 1-dose 75+ series) RSV Vaccine (1 - 1-dose 75+ series) [facility] Start: 01-30-2019 Adult depression screening assessment DEPRESSION SCREENING [facility] Start: 2009 Pneumococcal Vaccine: 65+ (1 of 1 - PCV) Pneumococcal Vaccine: 65+ (1 of 1 - PCV) [facility] Start: 2004 RSV Vaccine (1 - 1-dose 60+ series) RSV Vaccine (1 - 1-dose 60+ series) [facility] Start: 1994 Pneumococcal Vaccine: 50+ (1 of 1 - PCV) Pneumococcal Vaccine: 50+ (1 of 1 - PCV) [facility] Start: 1994 SHINGRIX VACCINE (1 of 2) SHINGRIX VACCINE (1 of 2) [facility] Start: 1962 Annual PCP Team Chronic Disease Visit Annual PCP Team Chronic Disease Visit [facility] Start: 1962 Depression Screening Depression Screening [facility] Start: 1962 SPIROMETRY SPIROMETRY [facility] Start: 1950 Pneumococcal Vaccine: 65+ (1 - PCV) Pneumococcal Vaccine: 65+ (1 - PCV) [facility] Start: 1950 PNEUMOCOCCAL: 65+ (1 - PCV) PNEUMOCOCCAL: 65+ (1 - PCV) [facility] Start: 1949 COVID-19 VACCINE (#1) COVID-19 VACCINE (#1) [facility] Start: 1944 COVID-19 VACCINE (#1) COVID-19 VACCINE (#1) [facility] Bacteria identified in Urine by Culture URINE CULTURE Microbiology Routine Urinary frequency Ordered: 12/15/2022 [facility] Work Phone: Comment on above: Ordered: 12/15/2022 End: 08-12-2023 CBC W Auto Differential panel - Blood CBC + DIFF Lab STAT Hereditary hemochromatosis (HCC) 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 Every 3 months for 4 Occurrences starting 08/13/2022 until 08/12/2023, 1 completed [facility] Work Phone: Comment on above: Every 3 months for 4 Occurrences startin g 08/13/2022 until 08/12/2023, 1 completed COLOGUARD COLOGUARD Lab Ro utine Screening for colon cancer Ordered: 01/14/2023 [facility] Work Phone: Comment on above: Ordered: 01/14/2023 Comprehensive metabo lic 2000 panel - Serum or Plasma [facility] End: 12-10-2024 DBT Breast - bilateral screening GOOD SCREENING W [facility] Radiology Routine Encounter for screening breast examination 1 Occurrences starting 11/11/2023 until 12/10/2024 [facility] Work Phone: Comment on above: 1 Occurrences starting 11/11/2023 until 12/10/2024 DBT Breast - bilater al screening GOOD SCREENING W [facility]OU Radiology Routine Encounter for screening breast examination 01/16/2024 8:26 AM EST [facility] Work Phone: ENTERIC BACTERIAL PA JUANITO BY PCR ENTERIC BACTERIAL PANEL BY PCR Lab Routine Rectal bleeding Ordered: 12/21/2022 [facility] Work Phone: Comment on above: Ordered: 12/21/2022 End: 08-12-2023 Ferritin [Mass/volume] in Serum or Plasma FERRITIN BLD Lab Routine Hereditary hemochromatosis (HCC) 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 Every 3 months for 4 Occurrences starting 08/13/2022 until 08/12/2023 [facility] Work Phone: Comment on above: Every 3 months for 4 Occurrences startin g 08/13/2022 until 08/12/2023 Ferritin [Mass/volum e] in Serum or Plasma FERRITIN BLD Lab Routine Hereditary hemochromatosis (HCC) 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 08/13/2022 7:58 AM EDT [facility] Work Phone: HEMOCUE B/O HEMOCUE B/O Lab Routine Rectal bleeding Ordered: 12/21/2022 [facility] Work Phone: Comment on above: Ordered: 12/21/2022 End: 08-12-2023 Iron and Iron binding capacity panel - Serum or Plasma IRON + TIBC Lab Routine Hereditary hemochromatosis (HCC) 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 Every 3 months for 4 Occurrences starting 08/13/2022 until 08/12/2023 [facility] Work Phone: Comment on above: Every 3 months for 4 Occurrences startin g 08/13/2022 until 08/12/2023 Iron and Iron bindin g capacity panel - Serum or Plasma IRON + TIBC Lab Routine Hereditary hemochromatosis (HCC) 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 08/13/2022 7:58 AM EDT [facility] Work Phone: Lipid 1996 panel - Serum or Plasma [facility] Magnesium measurement [facility] End: 11-24-2023 GOOD SCREENING GOOD SCREENING Radiology Routine Screening breast examination 1 Occurrences starting 10/25/2022 until 11/24/2023 [facility] Work Phone: Comment on above: 1 Occurrences starting 10/25/2022 until 11/24/2023 End: 09-13-2024 MR Brain WO contrast MRI BRAIN WO IVCON Radiology Routine Impaired memory Forgetfulness 1 Occurrences starting 08/15/2023 until 09/13/2024 [facility] Comment on above: 1 Occurrences starting 08/15/2023 until 09/13/2024 End: 09-13-2024 MR Unspecified body region 3D post processing MRI 3D POST PROCESSING Radiology Routine Impaired memory Forgetfulness 1 Occurrences starting 08/15/2023 until 09/13/2024 [facility] Comment on above: 1 Occurrences starting 08/15/2023 until 09/13/2024 Ova and parasites identified in Unspecified specimen by Light microscopy OVA + PARA MICROSCOPIC Microbiology Routine Rectal bleeding Ordered: 12/21/2022 [facility] Work Phone: Comment on above: Ordered: 12/21/2022 Patient Education [facility] Work Phone: Patient referral [facility] Work Phone: Procedure [facility] Work Phone: End: 06-21-2023 Us abdominal real time w/image limited US ABD RT UPPER QUADRANT Radiology Routine Hereditary hemochromatosis (HCC) 1 Occurrences starting 05/22/2022 until 06/21/2023 [facility] Work Phone: Comment on above: 1 Occurrences starting 05/22/2022 until 06/21/2023 [facility] Immunizations Immunization Date Immunization Notes Care Provider Meghna [facility] 10-16-2018 tetanus toxoid, redu laverne diphtheria toxoid, and acellular pertussis vaccine, adsorbed Dr. Katarina Medina Work Phone: [facility] 01-30-2018 influenza virus vaccine, unspecified formulation Pauline Muse APRN.CNP Work Phone: [facility] Payers Date Payer Category Payer Self-pay [id number] 2024 Private Health Insurance [id number] 2023 Self-pay [id number] 2021 Medicare AETNA MEDICARE A ETNA MEDICARE PPO [id number] 2021-Present [phone] [address] [place] [address] PPO [id number] 2021 Medicare AETNA MEDICARE A ETNA MEDICARE PPO [id number] 2021-Present [phone] [address] [place] [address] PPO [id number] 2021 Medicare (Managed Care) AETNA DE DICARE [id number] 2021 Private Health Insurance [facility] [place][note 2] [id number] 1945 Unknown [id number]. 627 Unknown [id number] 2.16840.1.984082.3.579.2. 462 Unknown [id number] 2.16840.1.600108.3.579.2. 462 Unknown [id number] 2.16840.1.479808.3.579.2. 462 Unknown [id number] 2.16.840.1.529510.3.579.2. 462 Unknown [id number] 2.16.840.1.191627.3.579.2. 462 Unknown [id number] 2.16.840.1.413307.3.579.2. 462 Unknown [id number] 2.16.840.1.149804.3.579.2. 462 Unknown [id number] 2.16.840.1.159540.3.579.2. 462 Unknown [id number] 2.16.840.1.096381.3.579.2. 462 Unknown [id number] 2.16.840.1.432764.3.579.2. 462 Unknown [id number] 2.16.840.1.884420.3.579.2. 462 Unknown [id number] 2.16.840.1.026255.3.579.2. 462 Unknown [id number] 2.16.840.1.080296.3.579.2. 462 Unknown [id number] 2.16.840.1.856013.3.579.2. 462 Unknown [id number] 2.16840.1.434360.3.579.2. 462 Unknown [id number] 2.16840.1.254591.3.579.2. 462 Social History Date Type Detail Facility Start: 05-28-2021 End: 05-28-2023 Tobacco smoking status NHIS Unknown if ever smoked [facility] Start: 03-12-2016 None [facility] Start: 03-12-2016 Spouse/ Significant Other [facility] Start: 03-09-2018 Non-smoker [facility] Start: 1945 Sex Assigned At Female [facility] Start: 01-08-2022 End: 01-13-2025 Tobacco smoking status NHIS Never smoked tobacco [facility] Start: 05-16-2021 End: 10-12-2024 Alcohol intake Current non-drinker of alcohol (finding) [facility] Start: 07-05-2019 History SDOH Alcohol Frequency 1 [facility] Start: 07-05-2019 History SDOH Alcohol Std Drinks 98 [facility] Start: 07-05-2019 History SDOH Social Connections Living 3 [facility] Start: 07-05-2019 History SDOH Physical Activity MPS 4 [facility] Start: 07-05-2019 History SDOH Financial 5 [facility] Start: 07-05-2019 History SDOH Transport Med 2 [facility] Start: 07-04-2019 Education 18 [facility] Start: 1945 Sex Assigned At Not on file [facility] Start: 01-08-2022 Tobacco use and exposure Smokeless tobacco non-user [facility] Start: 12-29-2021 End: 01-08-2022 Exposure to SARS-CoV-2 (event) Not sure [facility] Start: 07-04-2019 End: 08-14-2022 History of Social function [facility] Start: 07-04-2019 End: 08-14-2022 Social connection and isolation panel [facility] In a typical week, h ow many times do you talk on the telephone with family, friends, or neighbors? Patient refused [facility] Do you belong to any clubs or organizations such as restoration groups, unions, fraternal or athletic groups, or school groups? Yes [facility] Are you now , , , , never or living with a partner? [facility] How often to you hav e a drink containing alcohol? Never [facility] Do you feel stress - tense, restless, nervous, or anxious, or unable to sleep at night because your mind is troubled all the time - these days [OSQ] Not at all [facility] (I/We) worried paz er (my/our) food would run out before (I/we) got money to buy more. Never true [facility] Tobacco smoking status [facility] Start: 03-26-2024 Sex Female (finding) [facility] Medical Equipment Procedure Code Equipment Code [...] up, Visitor at bedside, Safety level maintained [facility] 01-06-2017 Are you deaf, or do you have serious difficulty hearing No 01/06/2017 8:40 AM Rosa Elena Martin, MARCIAL.WREATH INSPECTOR No [facility] Work Phone: 01-06-2017 Are you blind, or do you have serious difficulty seeing, even when wearing glasses No 01/06/2017 8:40 AM Rosa Elena Martin, MARCIAL.WREATH INSPECTOR No [facility] 01-06-2017 Do you have serious difficulty walking or climbing stairs No 01/06/2017 8:40 AM Rosa Elena Martin, EMBOSSING CLERK.WREATH INSPECTOR No [facility] 01-06-2017 Do you have difficul ty dressing or bathing No 01/06/2017 8:40 AM Rosa Elena Martin, EMBOSSING CLERK.WREATH INSPECTOR No [facility] 01-06-2017 Because of a physica l, mental, or emotional condition, do you have difficulty doing errands alone such as visiting a physician's office or shopping No 01/06/2017 8:40 AM SHABBIRT Rosa Elena Orta, EMBOSSING CLERK.WREATH INSPECTOR No [facility] Mental Status Date Assessment Result Facility 12-01-[address] [facility] Work Phone: 09-12-2024 Cognitive function Level Of Cons ciousness Awake;Alert;Appropriate;Fol lows Commands [facility] Work Phone: 03-26-2024 Mental Status Oriented x 4 [facility] 10-31-2021 Cognitive function Voice/Name [facility] Work Phone: 01-06-2017 Because of a physica l, mental, or emotional condition, do you have serious difficulty concentrating, remembering, or making decisions No 01/06/2017 8:40 AM SHABBIRT Rosa Elena Orta APRN.WREATH INSPECTOR No [facility] Clinical Notes 08-03-2014 to 12-27-2024 Note Date & Type Note Facility 12-27-2024 Progress note [facility] 12-27-2024 Progress note Note Date/Time December 27, 2024 4:39pm [facility] [address] [place] [address] OFFICE VISIT Date of Service: 12/27/24 MR#: [id number] Acct: [id number] Name: EDER SEVERINO Rep #: [id number] : 1945 Provider: Dr. 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 Required: No Accompanied by: Self Is patient [...] Adverse Reaction (Verified 12/27/24 14:21) Other Medications ?Medication ?Instructions ?Recorded ?Confirmed ?Type L.acidophilus-L.plantarum-B.animalis-B.reinier gum 1 ea PO DAILY 04/26/14 12/27/24 History 2 billion cell capsule biotin 1 mg capsule 2,500 mcg PO QDAY 10/17/17 1 History Nattokinase 2,000 mg PO DAILY 12/05/20 1 History lutein 20 mg capsule 20 mg PO DAILY 06/10/2212/09 History magnesium amino acid chelate 100 100 mg PO DAILY 12/0912/27/24 History mg tablet phlebotomies for hemachromatosis See Rx Instructions I M .COMPLEX 12/09/22 12/27/24 History albuterol sulfate 90 mcg/actuation 2 puff inhalation Q 4H PRN PRN 11/13/23 12/27/24 Rx aerosol inhaler Wheezing #8.5 grams quercetin 500 mg capsule mg PO 06/30/24 12/27/24 Hist ory Held on 09/12/24. Instructions: Conflicting Appointment tafluprost (PF) 0.0015 % eye drops 1 drp ophthalmic (e ye) QHS 06/30/24 12/27/24 History in a dropperette diphenhydramine HCl 25 mg capsule 25 mg PO BID PRN PRN Allergies 12/27/24 12/27/24 History Have you fallen in the [...] per week HPI HPI Chief Complaint: Brain fog Details: EDER SEVERINO, is a 79 F who presents to the office today for 6-month follow-up. 79-year-old female who has history of hemochromatosis, which has been stable, vitamin D deficiency, element of neuropathy, brain fog. Generally speaking has been doing okay. She had questions in regards to B complex that she is currently taking. We discussed this extensively and I would suggest thatthe B complex that she is currently on, while adequate, could be higher in termsof the B12. Her B12 is been typically in the low one third of the normal range. She wonders if boosting that would help with the brain fog issue. She takes several other supplements as per the chart. In November, she had an ER visit for episodes of chest pain. Per the note and what she describes, a couple of days prior to going to the ER, she had several episodes of chest pain. She was reading about eyedrops that she had relatively recently started per ophthalmology that it could cause some issues that way. She had noted some palpitations as well. In the ER, troponin was negative x 1, EKG unremarkable, the remaining labs unremarkable, chest x-ray okay. She was subsequently discharged. She has not had recurrence. She continues to be physically active as usual without any discomfort. Her past EKG has shown rightbundle branch block. This looks unchanged at this point. She had a stress testin , exercise type no imaging, that was not concerning for ischemic changes. Echo in shows no significant valvular disease with normal function, and no regional wall motion abnormalities. Ongoing low back discomfort, not debilitating. Left knee discomfort intermittently, medial aspect. Review of systems per chart. Physical exam. Vital signs on chart. PERRLA. Sclera are clear. No cervical orsupraclavicular lymph nodes enlarged or tender. No clear thyromegaly. No thyroid nodules readily palpable. Lungs are without wheeze, rhonchi, rales. Andrew/A changes are heard. Heart is regular. Not tachycardic. No clear murmur, rub, or gallop is identified. The abdomen is soft. Bowel sounds are present. Nontender nondistended abdomen. No clear palpable masses in the abdomen. No significant leg edema. Cranial nerve examination 2 through 12 are grossly unremarkable nonlateralizing. No obvious rashes. Psoriasis, low back, cleft, between the outer buttocks. ROS Const Constitutional: No body ache, chills, excessive sweating, fatigue, fever(s), frequent falls, headache(s), snoring, weakness or change in appetite Eyes Eyes: No blurry vision, change in vision, eye pain or Light sensitivity ENT ENT: No abnormal hearing, ear or mastoid pain, tinnitus, nasal congestion, headache(s), neck pain or sore throat Resp Respiratory: No cough, shortness of breath, snoring or wheezing Cardio Cardiology: No chest pain at rest, chest pain with exertion, excessive sweating,dyspnea on exertion, lightheadedness, orthopnea or palpitations Gastro GI: No abdominal pain, change in bowel habits, constipation, cramping, diarrhea,nausea/dyspepsia or vomiting Genitourinary-Female: No burning urination, painful urination, urinary incontinence or urinary frequency Musc Musculoskeletal: No abnormal gait, joint pain, back pain, limited range of motion, muscle weakness, neck pain or numbness Skin Skin: No dry skin, redness, lesions, itchy eyes, rash or wounds Neuro Neurology: Positive for memory loss (Brain fog ); No abnormal gait, abnormal hearing, weakness, frequent falls, headache(s) or numbness Psych Psychiatric: No anxiety, No change in appetite, No depression, Positive for memory loss (Brain fog ) and No Thoughts of harming yourself/Others Endo Endocrine: No cold intolerance, excessive sweating, fatigue, flushing, heat intolerance, increased thirst/drinking or increased hunger Aller/Imm Allergy/Immunologic: No itchy eyes, seasonal allergy symptoms, hives or wheezing Henry/Lymp Hematologic/Lymphatic: No easy bleeding or easy bruising Coding Level of Care Code Off vis,est,level 3 Diagnoses Neuropathy G62.9 Hemochromatosis E83.119 Vitamin D deficiency E55.9 Glaucoma H40.9 Cataract H26.9 Time Spent (min) 30 Assessment and Plan Assessment and Plan (1) Neuropathy: Status: Chronic (2) Hemochromatosis: Status: Chronic (3) Vitamin D deficiency: Status: Acute (4) Glaucoma: Status: Chronic (5) Cataract: Status: Chronic Orders: Orders Comprehensive Metabolic Profil 12/27/24 E55.9 - Vitamin D deficiency, unspecified, G62.9 - Polyneuropathy, unspecified, R41.89 - Other symptoms and signs involving cognitive functions and awareness Lipid Profile 12/27/24 E55.9 - Vitamin D deficiency, unspecified, E78.5 - Hyperlipidemia, unspecified, G62.9 - Polyneuropathy, unspecified, R41.89 - Othersymptoms and signs involving cognitive functions and awareness, Z13.220 - Encounter for screening for lipoid disorders Thyroid Stim Hormone (TSH) 12/27/24 E03.9 - Hypothyroidism, unspecified, E55.9 - Vitamin D deficiency, unspecified, G62.9 - Polyneuropathy, unspecified, R41.89- Other symptoms and signs involving cognitive functions and awareness Free T4 12/27/24 E03.9 - Hypothyroidism, unspecified, E55.9 - Vitamin D deficiency, unspecified, G62.9 - Polyneuropathy, unspecified, R41.89 - Other symptoms and signs involving cognitive functions and awareness Free T3 12/27/24 E55.9 - Vitamin D deficiency, unspecified, G62.9 - Polyneuropathy, unspecified, R41.89 - Other symptoms and signs involving cognitive functions and awareness Magnesium 12/27/24 E55.9 - Vitamin D deficiency, unspecified, G62.9 - Polyneuropathy, unspecified, R41.89 - Other symptoms and signs involving cognitive functions and awareness Vitamin D,25 Hydroxy 12/27/24 E55.9 - Vitamin D deficiency, unspecified, G62.9 - Polyneuropathy, unspecified, R41.89 - Other symptoms and signs involving cognitive functions and awareness Vitamin B12 12/27/24 E53.8 - Deficiency of other specified B group vitamins, E55.9 - Vitamin D deficiency, unspecified, G62.9 - Polyneuropathy, unspecified, R41.89 - Other symptoms and signs involving cognitive functions and awareness VITAMIN B6 12/27/24 E55.9 - Vitamin D deficiency, unspecified, G62.9 - Polyneuropathy, unspecified, R41.89 - Other symptoms and signs involving cognitive functions and awareness Plan Details Additional Comments: Patient presented today as above. 6-month follow-up. She had a number of questions, predominantly surrounding her B12 levels. In the past they have beenlow end of the normal range but always normal. Despite that she had been on thesupplement, B complex. She brings that in today. We reviewed that in detail. Made a suggestion that she may continue on the current B complex that she is taking, which has a relatively small amount of B12, supplement that with additional perhaps 500 mcg to 1000 mcg daily additional oral B12. I do not haveany specific concerns that she is not properly absorbing B12. She has been longstanding essentially vegan diet except she does eat some fish, usually twicea week salmon. She wonders it as well if the B12 addition would potentially help psoriasis. As a child she recalls getting B12 injection or IV at that time, as well as some other treatments including bluelight therapy that did helpbut has not on any specific treatment for psoriasis for a long time. In regardsto her heart, I do not think anything more specific needs done right now. She is at very low risk for heart disease, given her longstanding pattern of vegan diet, adequate omega-3 intake, reasonable cholesterol levels, non-smoker. She has not had any recurrence of any type of chest discomfort recently. Otherwise I would not change any of her medical regimen right now. Labs will be obtained as ordered including B12, B6, vitamin D, magnesium, thyroid functions, CMP. Await those. The intent would be to probably recheck B12 in about 3 to 4 monthson the adjusted regimen. 30-minute visit. Clinical Quality Measures Falls Risk Screening/Assistive Devices Have you fallen in the past year?: No 12/29/24 0812 <Electronically signed by Katarina zamora MD> Date _ Katarina Medina MD Cosign Signature: Date (if applicable) CC: ~ [facility] Work Phone: 1(417) 286-680709-24-2025 Discharge summary [facility] Medical Records Department [address] [place] [address] Emergency Department Summary 12/01/24 MR#: [id number] Acct: [id number] Name: EDER SEVERINO Rep #:[id number] : 1945 79 From: Chico Enriquez MD PCP: Dr. Katarina Medina MD Status:REG ER Location: ED HPI History of Present Illness Chief Complaint: Palpitations Narrative Narrative: 79-year-old female past medical history of glaucoma and macular degeneration states she has been oneyedrops from her research chemical engineer, Dr. Chan, for 3 to 4months. She presents to the emergency department today because of episodes thathappened on Friday, 2 days ago. She relates history that she was having chest pains, at least 4 episodes within 30 to 45 minutes. That resolved. Later that eveningshe experienced a regular heart rate and palpitations. She states she awoke with that the next morning, but has since resolved. She was reading that some of her eyedrops could cause cardiac events. She withheld her eyedrops and made an appointment with her research chemical engineer to see if there was a corre lation. She states she wants to restart the [...] nausea or vomiting, no shortness of breath. [facility] Medical History Left knee pain History of [...] concerned about the events of Friday and chest pain that she had. Chest pain workup was pursued. EKG obtained and interpreted by myselfin dependently as normal sinus rhythm at 68 bpm without ectopy or acute ST changes. No STEMI. There emanuel right bundle branch block. When compared to prior, it was present at that time as well. No significant change from previous. I reviewed her laboratory work and she has a normal white count of 6.3 with hemoglobin 14.8, hematocrit 43.8, platelet count 228. I reviewed her BMP which is grossly normalwith a normal BUN and creatinine. Glucose 99. [...] with her primary care provider, and her research chemical engineer tomorrow. I feel she has been ruled [...] % (Auto) 60.3 Lymph % (Auto) 28.5 [place] % (Auto) 7.4 Eos % (Auto) 2.2 [...] evidence of acute cardiopulmonary disease. Reading Location: [facility] Discharge Plan Triage Chief Complaint: Palpitations ED [...] 2 through 11 Primary Care Provider: Katarina Medina Referrals: Katarina Medina MD [Primary Care Provider, Internal Medicine - [facility]] - 3-5 Days Activity Restrictions/Additional Instructions: Follow-up with Dr. Chan. With ophthalmology tomorrow as scheduled. Return with increasing chest pain or continued heart palpitations, new or worsening symptoms. Print Language: Fijian Disposition Disposition: Home, Self Care What to do if you have Problems For any increased pain, shortness of breath, bleeding, nausea or vomiting, chestpain, or any unexpected problems, contact your Primary Care Provider. Call [facility] ([phone]) or report tothe closest Emergency Room. Call 911 if necessary. 12/01/241939 Cosigner Signature (if applicable): CC: Dr. Katarina Medina MD ~ Signed [facility]09-24-2025 Radiology Diagnostic study note [facility] Imaging Services [address] [place], [place] [address] Chest 1 View (Portable) MR#: [id number] Acct: [id number] Name: EDER SEVERINO Rep #: [id number] : 1945 F 79 From: Max Mendes MD PCP: Dr. Katarina Medina MD Status: REG ER Study:Chest 1 View (Portable) Date of Exam: 12/01/24 Exam# [id number] Ordering Dr: Chico Enriquez MD PROCEDURE: CHEST [...] evidence of acute cardiopulmonary disease. Reading Location: [facility] CC: Dr. Chico Enriquez MD; Dr. Katarina Medina MD ~ Fund Manager: Signed [facility]09-24-2025 Discharge summary Author Chico Enriquez [facility] Note Date/Time December 01, 2024 7:40pm [facility] Medical Records Department [address] [place] [address] Emergency Department Summary 12/01/24 MR#: [id number] Acct: [id number] Name: EDER SEVERINO Rep #:[id number] : 1945 79 From: Chico Enriquez MD PCP: Dr. Katarina Medina MD Status:REG ER Location: ED [facility] History of Present Illness Chief Complaint: Palpitations Narrative Narrative: 79-year-old female past medical history of glaucoma and macular degeneration states she has been on eyedrops from her research chemical engineer, Dr. Chan, for 3 to 4months. She [...] eyedrops and made an appointment with her research chemical engineer to see if there was a correlation. [...] nausea or vomiting, no shortness of breath. [facility] Medical History Left knee pain History of [...] 1 mg capsule 2,500 mcg PO QDAY 08/10/18 U nknown History Nattokinase 2,000 mg PO [...] with her primary care provider, and her research chemical engineer tomorrow. I feel she has been ruled [...] % (Auto) 60.3 Lymph % (Auto) 28.5 [place] % (Auto) 7.4 Eos % (Auto) 2.2 [...] evidence of acute cardiopulmonary disease. Reading Location: [facility] Discharge Plan Triage Chief Complaint: Palpitations ED [...] 2 through 11 Primary Care Provider: Katarina Medina Referrals: Katarina Medina MD [Primary Care Provider, Internal Medicine - [facility]] - 3-5 Days Activity Restrictions/Additional Instructions: Follow-up with Dr. Chan. With ophthalmology tomorrow as scheduled. Return with increasing chest pain or continued heart palpitations, new or worsening symptoms. Print Language: Fijian Disposition Disposition: Home, Self Care What to do if you have Problems For any increased pain, shortness of breath, bleeding, nausea or vomiting, chestpain, or any unexpected problems, contact your Primary Care Provider. Call [facility] ([phone]) or report to the closest Emergency Room. Call 911 if necessary. 12/01/241939 <Electronically signed by Chico Enriquez MD> Cosigner Signature (if applicable): CC: Dr. Katarina Medina MD ~ Signed [facility] Work Phone: 1(678) 693-755108-05-2025 History of Present illness Narrative* Luis Ron, - 10/12/2024 8:30 AM EDT DIAGNOSIS: 1) [...] receptors were positive (greater than 95%, strong) [place] positive (greater than 95%, moderate and HER-2 [...] which included preparing to see the patient, [id number] patient care, completing clinical documentation, obtaining and/or reviewing separately obtained history, performing a medically appropriate examination, counseling and educating the pat ient/family/caregiver, communicating with other HCPs (not separately reported), and communicating results to the patient/family/caregiver. Luis [facility] NoteHNO ID: [id number] Author: LUIS RON DO Service: ? Author [...] receptors were positive (greater than 95%, strong) [place] positive (greater than 95%, moderate and HER-2 [...] which included preparing to see the patient, olgh-go-efvt patient care, completing clinical documentation, obtaining and/or reviewing separately obtained history, performing a medically appropriate examination, counseling and educating the patient/family/caregiver, communicating with other HCPs (not separately reported), and communicating results to the patient/family/caregiver. Luis Ron, [facility]07-09-2025 Evaluation note* Diagnosis Onset Date Resolution Status Admit Date Left knee pain acute September 15, 2024 9:31am Congested nose inactive September 15, 2024 9:31am [facility] Work Phone: 1(843) 839-657707-09-2025 Evaluation note* Diagnosis Onset Date Resolution Status Admit Date Left knee pain acute September 15, 2024 9:31am Congested nose inactive September 15, 2024 9:31am Vitamin D deficiency acute Octo 2024 2:15pm Cataract chronic December 27, 2024 2:15pm Glaucoma chronic December 27, 2024 2:15pm Hemochromatosis chronic December 092024 2:15pm Neuropathy chronic December 27, 2024 2:15pm [facility] Work Phone: 1(778) 769-479107-06-2025 Radiology Diagnostic study note [facility] Imaging Services [address] [place] [address] Chest PA and Lateral MR#: [id number] Acct: [id number] Name: EDER SEVERINO Rep #: [id number] : 1945 F 79 From: [place] MD PCP: Dr. Katarina Medina MD Status: REG ER Study:Chest PA and Lateral Date of Exam: 09/12/24 Exam# [id number] Ordering Dr: Nathanael Taylor DO PROCEDURE: CHEST [...] evidence of acute cardiopulmonary pathology. Reading Location: [id number] CC: Dr. Nathanael Bowers DO; Dr. Katarina Medina MD ~ Fund Manager: Signed [facility] Work Phone: 1(930) 289-965706-23-2025 Miscellaneous Notes* Telephone Encounter - Angie Seth [...] Fletcher. Angie Seth LPN [facility] Telephone encounter Note * Telephone Encounter - Angie Seth LPN - 08/30/2024 9:27 AM EDT Pt notified and voices understanding. Ferritin trend reviewed with pt. Angie Seth LPN [facility]06-20-[facility]25 Telephone encounter Note* Telephone Encounter - Luis Ron DO - 08/27/2024 5:02 PM EDT I don't think hemochromatosis is causing brain fog. Her ferritin is at goal (< 50 ng/mL). if shehad polycythemia vera (she doesn't) then more frequent phlebotomy would make sense. Luis Ron DO [facility]06-20-2025 Telephone encounter Note* Telephone Encounter - Angie [...] ordered from Dr Fletcher. Angie Seth LPN [facility]04-23-2025 Evaluation note* Diagnosis Onset Date Resolution Status Admit Date Anxiety acute June 30 2:22pm Brain fog acute June 30 2:22pm Vitamin D deficiency acute Apri l 2024 2:22pm Asthma chronic June 30 2:22pm Hemochromatosis chronic June 2:22pm Hemochromatosis chronic July 16, 2024 8:04am [facility] Work Phone: 1([phone]) 896-997104-23-2025 Evaluation note* Diagnosis Onset Date Resolution Status Admit Date Anxiety acute June 30 2:22pm Brain fog acute June 30 2:22pm Vitamin D deficiency acute Apri l 2024 2:22pm Asthma chronic June 30 2:22pm Hemochromatosis chronic June 2:22pm Hemochromatosis chronic July 16, 2024 8:04am Hemochromatosis chronic July 30, 2024 8:26am [facility] Work Phone: 1([phone]) 766-848804-23-2025 Evaluation note* Diagnosis Onset Date Resolution Status [...] Congested nose inactive September 15, 2024 9:31am [facility] Work Phone: 1([phone]) 385-363404-09-2025 NoteDate of Procedure 06/16/2024. Wound/Ostomy Nurse Information Medical Laboratory Technologist: JONATHAN. Start time: 8:50 AM. Stop time: 8:53 AM. Quality Right Eye Good. Left Eye Good. Notes OD mod diffuse thinning, sup > inf OS approaching floor GCC OD artifact OD severe [id number] NoteHNO ID: [id number] Author: JACQUELINE GRIFFITHS MD Service: ? Author [...] AMD OD - getting Avastin Dry AMD [facility]03-26-2025 History of Present illness Narrative* Jacqueline Griffiths MD - 06/02/2024 3:09 PM EDT OUTSIDE RECORDS REVIEW: Tmax: 26, ; Pachy: 555, 555 Lasers and Surgeries: OD: SLT x5 2804-2043 OS: SLT x5 Ocular Medication Intol and [...] Avastin Dry AMD OS documented in this encounterPeoples Hospital03-26-2025 NoteHNO ID: [id number] Author: JACQUELINE GRIFFITHS MD Service: ? Author Type: Physician Type: Progress Notes Filed: 06/16/2024 09:53 Note Text: Tmax: 26, ; Pachy: 555, 555 Lasers and Surgeries: OD: SLT x5 [id number] OS: SLT x5 Ocular Medication Intol and [...] and agree with all of its relevant components.[facility]03-26-2025 History of Present illness Narrative* [...] allof its relevant components. documented in this encounterPeoples Hospital03-20-2025 Instructions* Patient Instructions* Airam Alvarado APRN.BATTERY TESTER - 05/27/2024 3:14 PM EDT Images from the original note were not included. Plan and Lifestyle Prescription PLAN with Patient Instructions: Based on your evaluation today, these are my recommendations: Modified Cardiometabolic Diet: avoid foods that are known to cause a serious allergy. Expand vegetable diversity for microbiome support slowly and gently. Follow up with the registered sales assistant (RD)for a customized food plan. Consider a 3-day food log/dietary recall assessment with your RD. Goals: Increase plant fiber intake with color variety (eat the rainbow) for gut health as tolerated. [facility] labs ordered Water intake: Aim for 8 [...] a day or at bedtime (Youtluiza Santos 7-8). Take 1-2 deep breaths before [...] including diet. Follow up with the health sustainability coach every 2 weeks to keep things in check Minimize supplements: recommend a well-sourced Vitamin D and quality probiotic. I like these brands: Blue vitamin D 5000 international unit(s) or plant-based: Truvani brand vitamin D or MindBodyGreen D3 Seed probiotic (seed.[employer]) or Garden of Life 30 billion CFUs Notes: Consider buying organic when available and within budget: check [employer].Audacious for the Dirty Dozen/Clean 15 shopping guide. Well-sourced protein includes labels like: organic, grassfed, pasture-raised, & wild caught Whole Food Recipe Blogs Fabby Ambriz: https://dereckImpulsonic.[employer]/ Plant Based RD (Vegan and plant diverse): https://plantbasedrSpot Mobile Internationallog.com/recipes/ Rachaels Good Eats: https://Alchemy Pharmatech Ltd..[employer]/ Cookie and Sheila: https://Pay by Shopping (deal united)/ Love and Celsa: https://www.Risk Management Solution.[employer]/recipes/ 101 Cookbooks: https://www.101cookbooks.com/ Naturally Joanna:https://naturallyella.com/ The Real Food Dietitians: https://Ultra ElectronicsalCitySpadeodInsuritasians.[employer]/ Follow up: Please schedule a follow up visit with the following Caregivers: Provider: 12weeks, Digital Composer: 4 weeks, and Health Payroll Tax Analyst: 2 weeks Chef German (RD): During the next 4-8 weeks you'll be working on your diet plan with our RD, allowing for gentle detoxification and decreasing inflammation - while we are gathering your lab results and combining thosewith your complete history to formulate a very personalized treatment plan. [phone]. Health Coaching: Recommend follow up every 2 weeks to develop a consistent routine. Please consider scheduling with our [facility] health coaches for a phone or virtual visit for accountability, goal setting and help with behavior tire changer the next 6-8 weeks to be successful with your goals. [phone]. CFM Therapist: This is optional. Weekly or bi-monthly appointments can be helpful. [phone]. Due to the complexity of the testing performed, we are not able to review labs via MyChart or over the phone, but please know, if any of your labs are critical we will contact you. Otherwise, we willreview all your labs at your next visit. documented in this encounterPeoples Hospital03-20-2025 NoteHNO ID: [id number] Author: AIRAM ALVARADO APRN.JONATHAN Service: ? Author Type: Nurse Practitioner Type: Progress Notes Filed: 05/27/2024 15:14 Note Text: FUNCTIONAL MEDICINE INITIAL ASSESSMENT Patient: Eder Severino ALLERGIES Allergen Reactions Sulfa (Sulfonamide * Anaphylaxis [place] Seed Rash Advil [Ibuprofen] Intolerance along with [...] removal - single site surgery performed at [facility] by Dr. Castro - under thoracic epidural [...] visit today. Accompanied by . Lives in [place], [place] HPI: This is an 79yo female [...] mentions that she w (more content not included)...[facility]03-20-2025 History of Present illness Narrative* Airam Alvarado APRN.BATTERY TESTER - 05/27/2024 2:13 PM EDT Images from the original note were not included. FUNCTIONAL MEDICINE INITIAL ASSESSMENT Patient: Eder Severino ALLERGIES Allergen Reactions Sulfa (Sulfonamide * Anaphylaxis [place] Seed Rash Advil [Ibuprofen] Intolerance along with [...] mouth once daily. OTC PRODUCT [place]- r/t [facility] study MAGNESIUM ORAL Take 300 mg [...] removal - single site surgery performed at [facility] by Dr. Castro - under thoracic epidural [...] visit today. Accompanied by . Lives in [place], [place] HPI: This is an 79yo female [...] Carries epipen and inhaler Had f/u with extension supervisor,mentions she's getting injections to build tolerance Has [...] and gently. Follow up with the registered sales assistant (RD)for a customized food plan. Consider a 3-day food log/dietary recall assessment with your RD. Goals: Increase plant fiber intake with color variety (eat the rainbow) for gut health as tolerated. [facility] labs ordered Water intake: Aim for 8 [...] a day or at bedtime (Youtluiza Santos 06-14-8). Take 1-2 deep breaths before eating meals Optionally, follow up with the [facility] therapist to help process the stress you [...] including diet. Follow up with the health sustainability coach every 2 weeks to keep things in check Minimize supplements: recommend a well-sourced Vitamin D and quality probiotic. I like these brands: Blue vitamin D 5000 international unit(s) or plant-based: Truvani brand vitamin D or MindBodyGreen D3 Seed probiotic (KabeExploration.[employer]) or Garden of Life 30 billion CFUs Notes: Consider buying organic when available and within budget: check [employer] for the Dirty Dozen/Clean 15 shopping guide. Well-sourced protein includes labels like: organic, grassfed, pasture-raised, & wild caught Whole Food Recipe Blogs Fabby Ambriz: https://Recite Me/ Plant Based RD (Vegan and plant diverse): https://plantbasedrArbor Plastic Technologies.[employer]/recipes/ InStore Finance Good Eats: https://Chip Path Design Systems/ Cookie and Sheila: https://Phreesia.[employer]/ Love and Celsa: https://www.Risk Management Solution.[employer]/recipes/ 101 Cookbooks: https://www.101cookbooks.[employer]/ Naturally Joanna:https://naturallyella.[employer]/ The Real Food Dietitians: https://Ultra ElectronicsalfooddiSpaceCurveians.[employer]/ Follow up: Please schedule a follow up visit with the following Caregivers: Provider: 12weeks, Digital Composer: 4 weeks, and Health Payroll Tax Analyst: 2 weeks Chef German (RD): During the next 4-8 weeks you'll be working on your diet plan with our RD, allowing for gentle detoxification and decreasing inflammation - while we are gathering your lab results and combining thosewith your complete history to formulate a very personalized treatment plan. [phone]. Health Coaching: Recommend follow up every 2 weeks to develop a consistent routine. Please consider scheduling with our [facility] health coaches for a phone or virtual visit for accountability, goal setting and help with behavior tire changer the next 6-8 weeks to be successful with your goals. [phone]. CFM Therapist: This is optional. Weekly or bi-monthly appointments can be helpful. [phone]. Due to the complexity of the testing [...] which included preparing to see the patient, qtlu-hs-hjle patient care, completing clinical documentation, obtaining and/or reviewing separately obtained history, performing a medically appropriate examination, counseling and educating the pat ient/family/caregiver, and ordering medications, tests, or procedures. Airam Alvarado APRN.CNP 05/27/2024 3:06 PM documented in this encounterPeoples Hospital02-10-2025 History of Present illness Narrative* Oli Aveyr MD - 04/19/2024 4:30 PM EST [facility] Established Visit Consultation is requested by: No referring provider defined for this encounter. PCP: Katarina Medina [facility] [address] CEREBROVASCULAR HISTORY History of Event: I am [...] We will be getting your records from [place] and we will let you know if [...] removal - single site surgery performed at [facility] by Dr. Castro - under thoracic epidural [...] mouth once daily. OTC PRODUCT [place]istle[place]e- r/t [facility] study MAGNESIUM ORAL Take 100 mg [...] ALLERGIES Allergen Reactions Sulfa (Sulfonamide * Anaphylaxis [place] Seed Rash Advil [Ibuprofen] Intolerance along with [...] which included preparing to see the patient, cdem-aw-dggr patient care, obtaining and/or reviewing separately obtained history, performing a medically appropriate examination, and counseling and educating the patient/family/caregiver SIGNATURE Oli Avery MD April 20, 2024 10:32 AM CC No referring provider defined for this encounter. Katarina Medina [address] [address] documented in this encounterPeoples Hospital02-10-2025 NoteHNO ID: [id number] Author: OLI AVERY MD Service: ? Author Type: Physician Type: Progress Notes Filed: 04/20/2024 10:32 Note Text: [facility] Established Visit Consultation is requested by: No referring provider defined for this encounter. PCP: Katarina Medina [address] [facility] [address] [place] [address] CEREBROVASCULAR HISTORY History of Event: I am [...] We will be getting your records from [place] and we will let you know if [...] removal - single site surgery performed at [facility] by Dr. Castro - under thoracic epidural [...] Smoking status: Never Smokeles (more content not included)...[facility]01-17-2025 Hospital Discharge instructions Patient Education 03/26/2024 12:41:21 [...] products Chemicals or dyes in clothing, linen, conservation enforcement officer, hair dyes, soaps, iodine Many viruses and [...] damage the skin. Oral diphenhydramine is an ooma-rdb-dezvdkv antihistamine sold at pharmacy and grocery stores. [...] hours, or as directed by your provider [phone] The Aux[employer]. [address] [place] [address]. All rights reserved. This information is not intended as a substitute for professional medical care. Always follow yourhealthcare professional's instructions. Follow Up Care 03/26/2024 12:20:35 With:JOSHUA ARMAS MD Address: [address] [place] [address] [phone] When:2-4 days [facility] 01-17-2025 Note Discharge Instructions Thank you for allowing [facility] to assist you with your healthcare needs. [...] use your oral Benadryl. You can take jxaw-gde-ddctavm allergy medications to help with your nasal congestion. If you develop swelling of your throat, shortness of breath, labored breathing, respiratory distress, associated nausea and vomiting, please return to the emergency department for reevaluation. No qualifying data available. Post Acute Orders No qualifying data available. You Need to Schedule the Following Appointments Follow Up with JOSHUA ARMAS MD When:Within 2-4 days Where:[address] [facility] [address] [place] [phone] Allergies No Known Medication Allergies Medications Please [...] products Chemicals or dyes in clothing, linen, conservation enforcement officer, hair dyes, soaps, iodine Many viruses and [...] damage the skin. Oral diphenhydramine is an lcex-pzc-jejdrau antihistamine sold at pharmacy and grocery stores. [...] hours, or as directed by your provider [phone] The [employer]. [address] [place] [address]. All rights reserved. This information is not intended as a substitute for professional medical care. Always follow yourhealthcare professional's instructions. Additional Information VACCINATE! IT SAVES LIVES! Members of the community who have not yet received the COVID-19 vaccine and would like to receive it can visit one of [facility] vaccine clinics. There are many vaccine clinic locations within the [facility]. For locations and available times, please visit www.gettheshot.coronavirus.[place].gov/. It is important to note that some COVID mobile vaccine clinics are held outdoors and may be canceled in rainy or stormy conditions. To learn more about pediatric vaccinations (ages 5-11), we invite you to visit the [facility] webpage. https://www.[facility].org/pages/3679-Qzfxx-Rlmqlehlgnm-Kxjesxxpml-Hcfpf-Hcq stions.htmlTo learn more about the COVID-19 vaccine, we invite you to visit the CDC website for a list of frequently asked questions. https://www.cdc.gov/coronavirus/2019-ncov/vaccines/faq.html [facility] Patient Portal Access Instructions: Stay connected with your healthcare team and access your personal medical information anytime with the [facility] Patient Portal. If you would like a full copy of your medical records please contact the [facility] Medical Records Department Friday through Friday between 8a.m. and 4:30p.m. Please follow the directions below to access the portal: 1.Access the email account you provided upon registration to the [facility].2.Look for an invitation email from [facility].3.Open the email and access the invitation link: Accept Invitation to [facility]4.Fill in the required woodward to create your account. Sign into [email or web address] with your username and password that you [...] you will allow to register on the [facility] Patient Portal for access to your information. You can also access the [facility] Patient Portal on the Bringg rao. Simply click on Health Records under HealthData and then click on the [facility] logo. HOW TO SAFELY DISPOSE OF PRESCRIPTION [...] Call your local pharmacy or go to http://Orca Pharmaceuticals.Next Step Living/0Y4Ca9f to find one close to you.3.Make use of household items: Use cat litter or old coffee grounds to dispose medications if other options arenot available. Mix your drugs with these household products, seal them in an airtight container andthrow it into the garbage. Call [facility]: [phone] to be sure your drugs can be [...] am aware that I should contactmy doctor. Patient/Ditch Cleaner Signature: Date/Time: Relationship to Patient: Witness Name/Signature: Date/Time: [facility]11-08-2024 History of Present illness Narrative * Catrachito Su Mammo Tech - 01/16/2024 8:30 AM EST Radiology Service Progress Note PATIENT NAME: Eder Perez Pattiadriano DATE OF SERVICE: January 16, 2024 TIME: [...] PATIENT PRESENTS WITH AN IMPLANTABLE OR ATTACHED CATTLE AND WHEAT FARMER: No RADIOLOGY DEPARTMENT: Mammography PERIPHERAL IV DATA: Not applicable SIGNED BY: Harriet Catherine January 16, 2024 9:39 AM documented in this encounterPeoples Hospital11-08-2024 NoteHNO ID: [id number] Author: CATRACHITO SU Mammo Tech Service: ? Author Type: Wound/Ostomy Nurse Type: Progress Notes Filed: 01/16/2024 09:39 Note [...] PATIENT PRESENTS WITH AN IMPLANTABLE OR ATTACHED CATTLE AND WHEAT FARMER: No RADIOLOGY DEPARTMENT: Mammography PERIPHERAL IV DATA: Not applicable SIGNED BY: Harriet Catherine January 16, 2024 9:39 [facility]09-03-2024 History of Present illness Narrative* Luis Ron [...] receptors were positive (greater than 95%, strong) [place] positive (greater than 95%, moderate and HER-2 [...] Abs Lymph 1.00 - 4.00 k/uL 1.25 [place]% % 7.7 Abs [place] <0.87 k/uL 0.39 Eosin% % 2.6 Abs [...] which included preparing to see the patient, qrpa-mp-vumd patient care, completing clinical documentation, obtaining and/or reviewing separately obtained history, performing a medically appropriate examination, counseling and educating the pat ient/family/caregiver, communicating with other HCPs (not separately reported), and communicating results to the patient/family/caregiver. Luis Ron DO documented in this encounterPeoples Hospital07-24-2024 Telephone encounter Note * Telephone Encounter - [...] Moreno RN October 01, 2023 11:31 AM Ward [id number] Miscellaneous Notes* Telephone Encounter - Alvina Moreno [...] as well. Please advise documented in this encounterPeoples Hospital07-24-2024 Telephone encounter Note * Telephone Encounter - Lula Liu - 10/01/2023 11:23 AM EDT Pt is requesting for Stella to place her yearly mammogram and asking if she needs to schedule a follow up as well. Please advise [facility] Telephone encounter Note* Telephone Encounter - Mariam Ozuna - 09/29/2023 3:49 PM EDT Received fax from [facility] Miscellaneous Notes* Telephone Encounter - Marima Ozuna - 09/29/2023 3:49 PM EDT Received fax from [facility] * Telephone Encounter - Светлана Ravi RN - 09/29/2023 12:41 PM EDT Call to [facility] , transferred to cardiac lab, will push images andfax reports for most recent EChO and CUS. Светлана Ravi RN September 29, 2023 12:45 PM documented in this encounterPeoples Hospital07-22-2024 Telephone encounter Note * Telephone Encounter - Светлана Ravi RN - 09/29/2023 12:41 PM EDT Call to [facility] , transferred to cardiac lab, will push images andfax reports for most recent EChO and CUS. Светлана Ravi RN September 29, 2023 12:45 PM [facility] Instructions* Patient Instructions* Oli Avery MD - [...] We will be getting your records from [place] and we will let you know if there is any more workup we recommend I do not recommend starting aspirin since you're already on a blood thinner Follow-up with us in 6 months (virtually) Please do not hesitate to call us or contact us through Genbook with any questions. Oli Avery MD September 25, 2023 2:03 PM documented in this encounterPeoples Hospital07-18-2024 History of Present illness Narrative* Oli Avery MD - 09/25/2023 12:39 PM EDT [facility] Initial Visit Consultation is requested by: Airam Martinez [address] [facility] [address] PCP: Katarina Medina [address] [address] CEREBROVASCULAR HISTORY History of Event: Mrs. Severino [...] removal - single site surgery performed at [facility] by Dr. Castro - under thoracic epidural [...] mouth once daily. OTC PRODUCT [place]e- r/t [facility] study MAGNESIUM ORAL Take 100 mg [...] ALLERGIES Allergen Reactions Sulfa (Sulfonamide * Anaphylaxis [place] Seed Rash Advil [Ibuprofen] Intolerance along with [...] Stroke of Undetermined etiology: Incomplete Evaluation Modified Joanna Score: Score: 0 NIH Stroke Scale: LOC: [...] We will be getting your records from [place] and we will let you know if [...] patients with diabetes, achieving a goal of UdS8f=7% is recommended to reduce risk for microvascular [...] DASH-style diet rich in fruits and vegetables (https://www.nhlbi.nih.gov/education/sqiz-udbpaz-schc) - Consider Mediterranean diet supplemented with nuts [...] of an exercise program by a health home health care worker such as a physical therapist or cardiac [...] which included preparing to see the patient, athb-kr-ewkj patient care, obtaining and/or reviewing separately obtained history, performing a medically appropriate examination, and counseling and educating the patient/family/caregiver SIGNATURE Oli Avery MD September 25, 2023 12:45 PM CC Airam Martinez [address] [facility] [address] Katarina Medina [address] [address] documented in this encounterPeoples Hospital06-25-2024 History of Present illness Narrative* Aida Izaguirre, [...] PATIENT PRESENTS WITH AN IMPLANTABLE OR ATTACHED CATTLE AND WHEAT FARMER: No RADIOLOGY DEPARTMENT: MR; Exam(s) Completed: Head: Routine Brain PERIPHERAL IV DATA: Not applicable SIGNED BY: RT Dante(R) September 02, 2023 2:25 PM documented in this encounterPeoples Hospital06-07-2024 Instructions* Patient Instructions* Airam Martinez APRN.BATTERY TESTER - 08/15/2023 11:57 AM EDT Labs. MRI brain. You can call [phone] to schedule testing and any follow up to discuss. Consider neuropsychological testing. Consider sleep study in the future. Our Team: The nursing staff, and medical assistants are a major part of YOUR TREATMENT TEAM and will be handling your phone calls, Qstreamhart Messages and inquiries, if any. Unless explicitly told otherwise at the time of your office visit, your study results and ensuing treatment plans will be released via Genbook and discussed during your follow-up appointment. MyChart: Please ask the schedulers to give you an activation code. The main way of communication isby Qstreamhart rather than phone lines, so if you have not signed up, please do so. Genbook is also theway that you can review your labs and testing. We are not able to contact everyone to tell them results are normal. If you do not hear back from us regarding testing you have had, it should be considered normal or within normal range. If you have any questions about the results, you are free to message us. Pingupt is meant for simple questions regarding medications, possible side effects, or other simplestraight forward questions in limited sentences, rather than multiple paragraphs of discussion. Pingupt is not meant for, or efficient for [...] do not comment on most testing on Viaziz Scamhart in a message or commentary unless there [...] you with this process. documented in [facility] encounterPe[facility]06[facility] History of Present illness Narrative* Airam Martinez APRN.CNP - 08/15/2023 9:30 AM EDT Images from the original note were not included. [facility] Name: Eder Severino Age: [age] year old Gender: female Primary Care Provider: Katarina Medina MD Self-referred for evaluation for memory. Chief Complaint:New Patient 08/15/2023 - General Neurology, Airam Martinez APRN.BATTERY TESTER ASSESSMENT Eder Severino is a 78 year [...] by her . Visit completed during unplanned [facility] downtime. This is a 78 year [...] mouth once daily. OTC PRODUCT [place]- r/t [facility] study MAGNESIUM ORAL Take 100 mg by mouth once daily. Biotin 2,500 mcg cap Take 2,500 mg by mouth once daily. Cholecalciferol, Vitamin D3, 5,000 unit cap Take 1 capsule by mouth once daily. OTC PRODUCT Take 100 mg by mouth twice daily. Nattokinase 100mg: Take one(1) tablet daily. ALLERGIES Allergen Reactions Sulfa (Sulfonamide * Anaphylaxis [place] Seed Rash Advil [Ibuprofen] Intolerance along with [...] removal - single site surgery performed at [facility] by Dr. Castro - under thoracic epidural [...] procedures found. This note was dictated using [employer] speech recognition software and may contain some [...] which included preparing to see the patient, [id number] patient care, completing clinical documentation, obtaining and/or [...] of your PCP/referring physician. documented in this encounterPeoples [facility]06-03-[facility]24 Telephone encounter Note * Telephone Encounter - [...] study. Pt. Voiced understanding. Shelly Miller LPN [facility] Miscellaneous Notes* Telephone Encounter - Shelly Miller [...] on. Thank you, Opal documented in this encounterPeoples Hospital06-03-2024 Telephone encounter Note * Telephone Encounter - Jordyn Brooks LPN - 08/11/2023 1:51 PM EDT Left message for patient to contact office. Jordyn Brooks LPN [facility] Telephone encounter Note* Telephone Encounter - Luis Ron DO - 08/11/2023 1:31 PM EDT Secondary only because she only has very occasional increase in RBC count, hemoglobin and hematocrit. 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 Luis Ron, DO Patient needs to follow up with her PCP if she feels she needs a sleep study. Jordyn Brooks LPN [facility] Telephone encounter Note* Telephone Encounter - Jordyn [...] at home INR monitor. Jordyn Brooks LPN [facility] Telephone encounter Note* Telephone Encounter - Shelly [...] the next few weeks. Shelly Miller LPN [facility] Telephone encounter Note* Telephone Encounter - Opal [...] send her questions on. Thank you, Opal [facility]01[facility] History of Present illness Narrative* Pauline Muse APRN.JONATHAN - 08/09/2023 10:51 AM EDT Patient came in with medication questions. Patient says she takes a muyx-tmj-vjnvsut supplement that thins her blood. Patient says she also gets shots in the right eye to help control bleeding. Patient sees a specialist for this. Patient wants to know if she should increase or decrease her over-the- counter medication that thins her blood. At this time I did discuss with patient that we are unableto accommodate this request. Patient should page the on-call private eye and see what they wouldlike her to do because patient is saying she is seeing a pink hue in her visual field in the right eye. And that is why she is worried that the eye is still bleeding. And this is why she has questions about her blood thinning xqgn-uad-iokavea medication. Patient will page the on- call center agent [facility] and then her on-call PCP if that does not work she will go to the ER. Was okay with this care plan. documented in this encounterPeoples Hospital02-29-2024 Miscellaneous Notes* Telephone Encounter - Kaylie Cronin - 05/08/2023 12:17 PM EST Patient informed * Telephone Encounter - Betty Coleman - 05/08/2023 10:15 AM EST Called Patient and left a vm to return our phone call. We Need to inform her that we had to move her to [place] at 9;[address]Masci Betty Coleman documented in this encounterPeoples Hospital12-08-2023 Miscellaneous Notes* Telephone Encounter - Tere Palafox LPN - 02/14/2023 9:33 AM EST Images from the original note were not included. Mi Douglas MD [facility] General Surgery Pool Please let patient know her cologuard test was negative - Thanks Rich Called patient, no answer. Left voicemail (First and last name identifier) advising patient of Dr. Douglas's message above. Tere Palafox LPN documented in this encounterPeoples Hospital11-08-2023 History of Present illness Narrative* Mi Douglas MD - 01/15/2023 4:32 AM EST FOLLOW UP VISIT - POST OP LUMPECTOMY FOR DCIS NAME: Eder Perez [facility] NO.: [id number] DATE OF SERVICE: January 14, 2023 : [...] non-neoplastic tissue. Ancillary Studies from previous specimen ([id number] / [id number]): ER - >95%, strong [place] - >95%, moderate Her2 gunnar ([facility]) - [...] future. Mi Douglas MD documented in this encounterPeoples Hospital11-07-2023 Nurse Note* Josefa Goldsmith RN - 01/14/2023 [...] 2014 Josefa Goldsmith RN documented in this encounterPeoples Hospital10-31-2023 History of Present illness Narrative* Yonny Mott [employer] Tech - 01/07/2023 8:50 AM EDT Radiology [...] PERIPHERAL IV DATA: Not applicable SIGNED BY: Yonny Mott [employer] January 07, 2023 8:29 AM documented in this encounterPeoples Hospital10-19-2023 Miscellaneous Notes* Telephone Encounter - Claudia Armstrong LPN - 12/26/2022 9:23 AM EDT Patient given results and verbalized understanding of instructions given. Claudia Armstrong LPN * Telephone Encounter - Pauline Muse APRN.CNP - 12/26/2022 7:32 AM EDT Stool was negative for bacteria. Still awaiting further results documented in this encounterPeoples Hospital10-14-2023 History of Present illness Narrative* Pauline Muse [...] history is provided by the patient. No speech language pathology assistant was used. Diarrhea Review of Systems Constitutional: [...] removal - single site surgery performed at [facility] by Dr. Castro - under thoracic epidural and sedation. STRTC LOCLZJ GID BREAST BX/NEEDLE PLACEMENT Right 02/16/2018 Rt stereotactic vaccuum assisted core biopsy ALLERGIES Sulfa (Sulfonamide Antibiotics), [place] Seed, Advil [Ibuprofen], Amoxicillin, Aspirin,Barium Iodide, Darvon [...] one(1) tablet daily. OTC PRODUCT [place]- r/t [facility] study OTC PRODUCT 250 mg once daily. [...] okay with this care plan. Pauline Muse APRN.CNP documented in this encounterPeoples Hospital10-08-2023 History of Present illness Narrative* Pauline Muse [...] removal - single site surgery performed at [facility] by Dr. Castro - under thoracic epidural and sedation. [facility]NEEDLE [facility]AC[facility] Right 02/16/2018 [...] mouth once daily. OTC PRODUCT [place]- r/t [facility] study MAGNESIUM ORAL Take 100 mg [...] plan. Pauline Muse APRN.JONATHAN documented in this encounterPeoples Hospital08-21-2023 History of Present illness Narrative* Eva Heard PA-C - 10/28/2022 3:12 PM EDT This note was created using [employer] Watchter. Subjective Eder Severino is a 77 year old female. HPI Presents with a chief complaint of scratchy throat over the past 2 days. She had a rash around her mouth for 3 to 4 weeks and had been seen by a homeopathic doctor in [facility]. She had mentioned this to her and the doctor had recommended she have an VERO and some other antibody testing ordered asthe patient was concerned she was allergic to sunflower seeds. She had eaten some sunflower seeds before this rash started. She does have a history of multiple other allergies and has seen an extension supervisor and had immunotherapy previously. Last night she [...] mouth once daily. OTC PRODUCT [place]- r/t [facility] study MAGNESIUM ORAL Take 100 mg [...] removal - single site surgery performed at [facility] by Dr. Castro - under thoracic epidural [...] understanding. Eva Heard PA-C documented in this encounterPeoples Hospital08-21-2023 Instructions* Patient Instructions* Eva Heard PA-C - 10/28/2022 3:08 PM EDT Zyrtec 10 mg daily as needed Call your homeopathic physician to see if labs were ordered there. If not see PCP or extension supervisor to follow up regarding antibody testing. documented in this encounterPeoples Hospital08-18-2023 Miscellaneous Notes* Telephone Encounter - Mi Douglas MD - 10/25/2022 7:09 AM EDT Mammogram order entered documented in this encounterPeoples Hospital08-17-2023 Miscellaneous Notes* Telephone Encounter - Kelly Darby - 10/24/2022 1:39 PM EDT Patient is calling to schedule annual visit with you for a follow up. Please place order for mammography and return call to patient to arrange mammography appointment and appointment with Dr Douglas documented in this encounterPeoples Hospital05-08-2023 History of Present illness Narrative* Izabel Sams APRN.BATTERY TESTER - 07/15/2022 7:47 AM EDT Subjective The history is provided by the patient. No speech language pathology assistant was used. HPI Eder Severino is a [...] have confirmed and edited as necessary, the [facility] Review of Systems Constitutional: Negative for [...] evaluation. Izabel Sams APRN.CNP documented in this encounterPeoples Hospital05-08-2023 Instructions* Patient Instructions* Izabel Sams APRN.CNP - [...] side effects of medication. documented in this encounterPeoples Hospital04-06-2023 Miscellaneous Notes* Telephone Encounter - Kaylie Jc [...] filed. Luis Ron DO documented in this encounterPeoples Hospital03-27-2023 History of Present illness Narrative* Zo Ring [...] 03, 2022 8:08 AM documented in this encounterPeoples Hospital03-15-2023 History of Present illness Narrative* Luis Ron [...] receptors were positive (greater than 95%, strong) [place] positive (greater than 95%, moderate and HER-2 [...] No jaundice or rash. No petechiae. NEUROLOGIC: pediatric neuropsychologist II-XII are grossly intact. No focal motor [...] Lymph 1.00 - 4.00 k/uL 1.46 1.35 [place]% % 7.1 6.6 Abs [place] <0.87 k/uL 0.38 0.36 E[place]% % 0.9 [...] which included preparing to see the patient, [id number]-puqj patient care, completing clinical documentation, obtaining and/or reviewing separately obtained history, performing a medically appropriate examination, counseling and educating the pat ient/family/caregiver, ordering medications, tests, or procedures, and communicating results to thepatient/family/caregiver. Luis Ron DO documented in this encounterPeoples Hospital12-19-2022 Miscellaneous Notes* Telephone Encounter - Aby Unedrwood - 02/25/2022 12:49 PM EST Spoke with [...] to assist in scheduling. documented in this encounterPeoples Hospital12-02-2022 Miscellaneous Notes* Telephone Encounter - Jordyn Brooks [...] require adjustment. Thank you. documented in this encounterPeoples Hospital11-02-2022 History of Present illness Narrative* Mi Douglas MD - 01/09/2022 6:57 AM EDT FOLLOW UP VISIT - POST OP LUMPECTOMY FOR DCIS NAME: Eder Perez [facility] NO.: [id number] DATE OF SERVICE: January 08, 2022 : [...] non-neoplastic tissue. Ancillary Studies from previous specimen ([id number] / [id number]): ER - >95%, strong [place] - >95%, moderate Her2 gunnar ([facility]) - [...] visit. Mi Douglas MD documented in this encounterPeoples Hospital11-01-2022 Nurse Note* Iva Cassidy, WILLA - 01/08/2022 3:10 PM EDT REVIEW OF [...] 2014 Iva Cassidy LPN documented in this encounterPeoples Hospital10-28-2022 Miscellaneous Notes* Letter - Mammography Coordinator - 01/04/2022 12:03 PM EDT January 04, 2022 PID: [id number] Eder Severino [address] [place] [address] Dear Ms. Severino, We are pleased to [...] report [facility] and are available for your continuing care. Thank you for allowing us to help in meeting your health care needs. Sincerely, Dr. Yan Interpreting Radiologist [facility] (Normal over 40) documented in this encounterPeoples Hospital10-27-2022 History of Present illness Narrative* Elissa Rogers [...] IV DATA: Not applicable SIGNED BY: RT He(R) January 03, 2022 9:09 AM documented in this encounterPeoples Hospital08-24-2022 Miscellaneous Notes* Telephone Encounter - Aby Underwood - 10/31/2021 9:16 AM EDT Patient returned call and rescheduled. Aby Underwood * Telephone Encounter - bAy Underwood - 10/30/2021 3:51 PM EDT LM for patient to return call. When she calls, please reschedule 11/07 labs and phlebo to 11/09 or transfer to [facility] to reschedule. Once rescheduled, document and close this note. Aby Underwood documented in this encounterPeoples Hospital05-11-2022 Miscellaneous Notes* Telephone Encounter - bAy Underwood - 07/18/2021 9:18 AM EDT Left message for patient to return call. When patient calls, please message and warm transfer to Hem/Onc [facility] to reschedule 08/08 appointment to the following week. Aby Yasmine documented in this encounterPeoples Hospital05-27-2015 History of Past illness Narrative* Problem Noted Date Resolved Date Hemochromatosis 08/03/2014 07/17/2016 Disorder of iron metabolism, unspecified 29/2 012 07/17/2016 Overview: ICD-10 Go-Live Urgency of urination 05/09/2010 05/22/2011 Hematuria 02/27/2005 04/21/2005 documented as of this encounter (statuses as of 07/20/2021) [place] [id number] History of Past illness Narrative* Problem Noted Date Resolved Date Hemochromatosis 08/03/2014 07/17/2016 Disorder of iron metabolism, unspecified 29/2 012 07/17/2016 Overview: ICD-10 Go-Live Urgency of urination 05/09/2010 05/22/2011 Hematuria 02/27/2005 04/21/2005 documented as of this encounter (statuses as of 08/15/2021) [facility] Narrative* Problem Noted Date Resolved Date Hemochromatosis 08/03/2014 07/17/2016 Disorder of iron metabolism, unspecified 29/2 012 07/17/2016 Overview: ICD-10 Go-Live Urgency of urination 05/09/2010 05/22/2011 Hematuria 02/27/2005 04/21/2005 documented as of this encounter (statuses as of 10/31/2021) [facility] Narrative* Problem Noted Date Resolved Date Hemochromatosis 08/03/2014 07/17/2016 Disorder of iron metabolism, unspecified 29/2 012 07/17/2016 Overview: ICD-10 Go-Live Urgency of urination 05/09/2010 05/22/2011 Hematuria 02/27/2005 04/21/2005 documented as of this encounter (statuses as of 11/21/2021) [facility] Narrative* Problem Noted Date Resolved Date Hemochromatosis 08/03/2014 07/17/2016 Disorder of iron metabolism, unspecified 0829/2 012 07/17/2016 Overview: ICD-10 Go-Live Urgency of urination 05/09/2010 05/22/2011 Hematuria 02/27/2005 04/21/2005 documented as of this encounter (statuses as of 01/08/2022) [facility] Narrative* Problem Noted Date Resolved Date Hemochromatosis 08/03/2014 07/17/2016 Disorder of iron metabolism, unspecified 292 012 07/17/2016 Overview: ICD-10 Go-Live Urgency of urination 05/09/2010 05/22/2011 Hematuria 02/27/2005 04/21/2005 documented as of this encounter (statuses as of 01/09/2022) [facility] Narrative* Problem Noted Date Resolved Date Hemochromatosis 08/03/2014 07/17/2016 Disorder of iron metabolism, unspecified 29/2 012 07/17/2016 Overview: ICD-10 Go-Live Urgency of urination 05/09/2010 05/22/2011 Hematuria 02/27/2005 04/21/2005 documented as of this encounter (statuses as of 02/18/2022) [facility] Narrative* Problem Noted Date Resolved Date Hemochromatosis 08/03/2014 07/17/2016 Disorder of iron metabolism, unspecified 0829/2 012 07/17/2016 Overview: ICD-10 Go-Live Urgency of urination 05/09/2010 05/22/2011 Hematuria 02/27/2005 04/21/2005 documented as of this encounter (statuses as of 02/25/2022) [facility] Narrative* Problem Noted Date Resolved Date Hemochromatosis 08/03/2014 07/17/2016 Disorder of iron metabolism, unspecified 29/2 012 07/17/2016 Overview: ICD-10 Go-Live Urgency of urination 05/09/2010 05/22/2011 Hematuria 02/27/2005 04/21/2005 documented as of this encounter (statuses as of 05/22/2022) [facility] Narrative* Problem Noted Date Resolved Date Hemochromatosis 08/03/2014 07/17/2016 Disorder of iron metabolism, unspecified 29/2 012 07/17/2016 Overview: ICD-10 Go-Live Urgency of urination 05/09/2010 05/22/2011 Hematuria 02/27/2005 04/21/2005 documented as of this encounter (statuses as of 05/22/2022) [facility]arrative* Problem Noted Date Resolved Date Hemochromatosis 08/03/2014 07/17/2016 Disorder of iron metabolism, unspecified 29/2 012 07/17/2016 Overview: ICD-10 Go-Live Urgency of urination 05/09/2010 05/22/2011 Hematuria 02/27/2005 04/21/2005 documented as of this encounter (statuses as of 05/22/2022) [facility]ative* Problem Noted Date Resolved Date Hemochromatosis 08/03/2014 07/17/2016 Disorder of iron metabolism, unspecified 0829/2 012 07/17/2016 Overview: ICD-10 Go-Live Urgency of urination 05/09/2010 05/22/2011 Hematuria 02/27/2005 04/21/2005 documented as of this encounter (statuses as of 06/13/2022) [facility]arrative* Problem Noted Date Resolved Date Hemochromatosis 08/03/2014 07/17/2016 Disorder of iron metabolism, unspecified 012 07/17/2016 Overview: ICD-10 Go-Live Urgency of urination 05/09/2010 05/22/2011 Hematuria 02/27/2005 04/21/2005 documented as of this encounter (statuses as of 07/15/2022) [facility]ative* Problem Noted Date Resolved Date Hemochromatosis 08/03/2014 07/17/2016 Disorder of iron metabolism, unspecified 012 07/17/2016 Overview: ICD-10 Go-Live Urgency of urination 05/09/2010 05/22/2011 Hematuria 02/27/2005 04/21/2005 documented as of this encounter (statuses as of 08/13/2022) [facility] Narrative* Problem Noted Date Resolved Date Hemochromatosis 08/03/2014 07/17/2016 Disorder of iron metabolism, unspecified 012 07/17/2016 Overview: ICD-10 Go-Live Urgency of urination 05/09/2010 05/22/2011 Hematuria 02/27/2005 04/21/2005 documented as of this encounter (statuses as of 08/14/2022) [facility]* Problem Noted Date Diagnosed Date Resolved Date Hemochromatosis 08/03/2014 07/17/2016 Disorder of iron metabolism, unspecified 11/06/2011 07/17/2016 Overview: ICD-10 Go-Live Urgency of urination 05/09/2010 012 Hematuria 02/27/2005 04/21/2005 documented as of this encounter (statuses as of 10/25/2022) [facility] Narrative* Problem Noted Date Diagnosed Date Resolved Date Hemochromatosis 08/03/2014 07/17/2016 Disorder of iron metabolism, unspecified 11/06/2011 07/17/2016 Overview: ICD-10 Go-Live Urgency of urination 05/09/2010 012 Hematuria 02/27/2005 04/21/2005 documented as of this encounter (statuses as of 10/29/2022) [facility]ative* Problem Noted Date Diagnosed Date Resolved Date Hemochromatosis 08/03/2014 07/17/2016 Disorder of iron metabolism, unspecified 11/06/2011 07/17/2016 Overview: ICD-10 Go-Live Urgency of urination 05/09/2010 012 Hematuria 02/27/2005 04/21/2005 documented as of this encounter (statuses as of 11/12/2022) [facility] Narrative* Problem Noted Date Diagnosed Date Resolved Date Hemochromatosis 08/03/2014 07/17/2016 Disorder of iron metabolism, unspecified 11/06/2011 07/17/2016 Overview: ICD-10 Go-Live Urgency of urination 05/09/2010 012 Hematuria 02/27/2005 04/21/2005 documented as of this encounter (statuses as of 12/15/2022) [facility] Narrative* Problem Noted Date Diagnosed Date Resolved Date Hemochromatosis 08/03/2014 07/17/2016 Disorder of iron metabolism, unspecified 11/06/2011 07/17/2016 Overview: ICD-10 Go-Live Urgency of urination 05/09/2010 012 Hematuria 02/27/2005 04/21/2005 documented as of this encounter (statuses as of 12/21/2022) [facility]* Problem Noted Date Diagnosed Date Resolved Date Hemochromatosis 08/03/2014 07/17/2016 Disorder of iron metabolism, unspecified 11/06/2011 07/17/2016 Overview: ICD-10 Go-Live Urgency of urination 05/09/2010 012 Hematuria 02/27/2005 04/21/2005 documented as of this encounter (statuses as of 12/26/2022) [facility] Narrative* Problem Noted Date Diagnosed Date Resolved Date Hemochromatosis 08/03/2014 07/17/2016 Disorder of iron metabolism, unspecified 11/06/2011 07/17/2016 Overview: ICD-10 Go-Live Urgency of urination 05/09/2010 012 Hematuria 02/27/2005 04/21/2005 documented as of this encounter (statuses as of 01/12/2023) [facility]ative* Problem Noted Date Diagnosed Date Resolved Date Hemochromatosis 08/03/2014 07/17/2016 Disorder of iron metabolism, unspecified 11/06/2011 07/17/2016 Overview: ICD-10 Go-Live Urgency of urination 05/09/2010 012 Hematuria 02/27/2005 04/21/2005 documented as of this encounter (statuses as of 01/12/2023) [facility]ative* Problem Noted Date Diagnosed Date Resolved Date Hemochromatosis 08/03/2014 07/17/2016 Disorder of iron metabolism, unspecified 11/06/2011 07/17/2016 Overview: ICD-10 Go-Live Urgency of urination 05/09/2010 012 Hematuria 02/27/2005 04/21/2005 documented as of this encounter (statuses as of 01/15/2023) [facility]* Problem Noted Date Diagnosed Date Resolved Date Hemochromatosis 08/03/2014 07/17/2016 Disorder of iron metabolism, unspecified 11/06/2011 07/17/2016 Overview: ICD-10 Go-Live Urgency of urination 05/09/2010 012 Hematuria 02/27/2005 04/21/2005 documented as of this encounter (statuses as of 02/10/2023) [facility]* Problem Noted Date Diagnosed Date Resolved Date Hemochromatosis 08/03/2014 07/17/2016 Disorder of iron metabolism, unspecified 11/06/2011 07/17/2016 Overview: ICD-10 Go-Live Urgency of urination 05/09/2010 012 Hematuria 02/27/2005 04/21/2005 documented as of this encounter (statuses as of 02/11/2023) [facility]* Problem Noted Date Diagnosed Date Resolved Date Hemochromatosis 08/03/2014 07/17/2016 Disorder of iron metabolism, unspecified 11/06/2011 07/17/2016 Overview: ICD-10 Go-Live Urgency of urination 05/09/2010 012 Hematuria 02/27/2005 04/21/2005 documented as of this encounter (statuses as of 02/14/2023) [facility] History of Past illness Narrative* Problem Noted Date Diagnosed Date Resolved Date Hemochromatosis 08/03/2014 07/17/2016 Disorder of iron metabolism, unspecified 11/06/2011 07/17/2016 Overview: ICD-10 Go-Live Urgency of urination 05/09/2010 012 Hematuria 02/27/2005 04/21/2005 documented as of this encounter (statuses as of 05/08/2023) [facility] History of Past illness Narrative* Problem Noted Date Diagnosed Date Resolved Date Hemochromatosis 08/03/2014 07/17/2016 Disorder of iron metabolism, unspecified 11/06/2011 07/17/2016 Overview: ICD-10 Go-Live Urgency of urination 05/09/2010 012 Hematuria 02/27/2005 04/21/2005 documented as of this encounter (statuses as of 05/13/2023) [facility]* Chief Complaint COVID TEST Covid + per home test Annual Reason for Visit Suspected COVID-19 v irus infection Upper respiratory infection Vitamin D deficiency GERD (gastroesophageal reflux disease) Hemochromatosis Neuropathy Psoriasis [facility] Work Phone: Evaluation + Plan note No data available for this section [facility] Evaluation note* Diagnosis Onset Date Resolution Status Suspected COVID-19 virus infection acute Upper respiratory infection acute Vitamin D deficiency acute GERD (gastroesophageal reflux disease) chronic Hemochromatosis chronic Neuropathy chronic Psoriasis chronic [facility] Work Phone: Evaluation note* Diagnosis Hereditary hemochromatosis (HCC)- Primary Hereditary hemochromatosis Disorder of iron metabolism Other disorders of iron metabolism documented in this encounter [facility] note* Diagnosis Onset Date Resolution Status Vitamin D deficiency acute GERD (gastroesophageal reflux disease) chronic Hemochromatosis chronic Neuropathy chronic Psoriasis chronic Allergic rhinitis acute Change in stool acute Exposure to mold acute Osteopenia 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 a cute GERD (gastroesophageal reflux disease) chronic Seasonal allergies chronic [facility] Work Phone: Evaluation note* Diagnosis Onset Date Resolution Status Allergic rhinitis acute Change in stool acute Exposure to mold acute Osteopenia 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 a cute GERD (gastroesophageal reflux disease) chronic Seasonal allergies chronic [facility] Work Phone: Evaluation note* Diagnosis Disorder of iron metabolism- Primary Other disorders of iron metabolism [facility]* Diagnosis Onset Date Resolution Status Exposure to mold acute Osteopenia 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 a cute Vitamin D deficiency acute Hemochromatosis chronic Macular degeneration chronic [facility] Work Phone: Evaluation note* Diagnosis 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 documented in this encounter [facility]* Diagnosis Hereditary hemochromatosis (HCC)- Primary Hereditary hemochromatosis documented in this encounter [facility] note* Diagnosis Hereditary hemochromatosis (HCC)- Primary Hereditary hemochromatosis Secondary polycythemia Polycythemia, secondary History of ductal carcinoma in situ (DCIS) of breast documented in this encounter [facility] note* Diagnosis Hereditary hemochromatosis (HCC)- Primary Hereditary hemochromatosis Disorder of iron metabolism Other disorders of iron metabolism documented in this encounter [facility]* Diagnosis Hereditary hemochromatosis (HCC)- Primary Hereditary hemochromatosis documented in this encounter [facility]* Diagnosis URI with cough and congestion- Primary documented in this encounter [facility]* Diagnosis Hereditary hemochromatosis (HCC)- Primary Hereditary hemochromatosis Secondary polycythemia Polycythemia, secondary History of ductal carcinoma in situ (DCIS) of breast documented in this encounter [facility]* Diagnosis Disorder of iron metabolism- Primary Other disorders of iron metabolism Hereditary hemochromatosis (HCC) Hereditary hemochromatosis documented in this encounter [facility]* Diagnosis Screening breast examination- Primary Breast screening, unspecified documented in this encounter [facility]* Diagnosis Throat irritation- Primary Other diseases of pharynx, not elsewhere classified documented in this encounter [facility] note* Diagnosis Urinary frequency- Primary Recurrent UTI (urinary tract infection) Urinary tract infection, site not specified documented in this encounter [facility]* Diagnosis Rectal bleeding- Primary Hemorrhage of rectum and anus [facility] Diagnosis Screening breast examination Breast screening, unspecified [facility] Diagnosis Ductal carcinoma in situ (DCIS) of left breast [facility] Diagnosis Hereditary hemochromatosis (HCC) Hereditary hemochromatosis [facility] Diagnosis Screening for colon cancer- Primary Special screening for malignant neoplasms, colon [facility] Diagnosis Onset Date Resolution Status Ductal carcinoma in situ (DCIS) of breast acute Osteopenia 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 a cute Visual changes acute Vitamin D deficiency acute Neuropathy chronic Vegan diet chronic [facility] Work Phone: Evaluation note* Diagnosis Onset Date Resolution Status Ductal carcinoma in situ (DCIS) of breast acute Osteopenia 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 a cute Visual changes acute Vitamin D deficiency acute Neuropathy chronic Vegan diet chronic Urinary tract infection none active [facility] Work Phone: Evaluation note* Diagnosis Hereditary hemochromatosis (HCC)- Primary Hereditary hemochromatosis Secondary polycythemia Polycythemia, secondary [facility] Diagnosis Disorder of iron metabolism- Primary Other disorders of iron metabolism [facility] Diagnosis Disorder of iron metabolism- Primary Other disorders of iron metabolism [facility] Diagnosis Onset Date Resolution Status Aortic stenosis acute Brain fog acute Oral allergy syndrome acute Vitamin D deficiency acute Arthritis chronic Cataract chronic Glaucoma chronic Hemochromatosis chronic Macular degeneration chronic Osteopenia chronic [facility] Work Phone: Evaluation note* Diagnosis Medication management- Primary Encounter for long-term (current) use of other medications [facility] Diagnosis Subjective memory complaints- Primary Memory loss Impaired memory Memory loss Forgetfulness Other general symptoms documented in this encounter [facility]* Diagnosis Disorder of iron metabolism- Primary Other disorders of iron metabolism documented in this encounter [facility]* Diagnosis Hypercholesterolemia- Primary Pure hypercholesterolemia History of CVA (cerebrovascular accident) Transient ischemic attack (TIA), and cerebral infarction without residual deficits Anxiety about health Mild cognitive impairment Mild cognitive impairment, so stated Remote history of stroke Transient ischemic attack (TIA), and cerebral infarction without residual deficits documented in this encounter [facility]* Diagnosis ASTHMA UNSPECIFIED Unspecified asthma Esophageal reflux OSTEOPENIA Disorder of bone and cartilage, unspecified Allergy Allergy, unspecified not elsewhere classified Disorder of iron metabolism Other disorders of iron metabolism Hereditary hemochromatosis (HCC)- Primary Hereditary hemochromatosis Encounter for screening breast examination documented in this encounter [facility] note* Diagnosis ASTHMA UNSPECIFIED Unspecified asthma Esophageal reflux OSTEOPENIA Disorder of bone and cartilage, unspecified Allergy Allergy, unspecified not elsewhere classified Disorder of iron metabolism Other disorders of iron metabolism Hereditary hemochromatosis (HCC)- Primary Hereditary hemochromatosis Disorder of iron metabolism Other disorders of iron metabolism [facility] Diagnosis ASTHMA UNSPECIFIED Unspecified asthma Esophageal reflux OSTEOPENIA Disorder of bone and cartilage, unspecified Allergy Allergy, unspecified not elsewhere classified Disorder of iron metabolism Other disorders of iron metabolism Impaired memory Memory loss Forgetfulness Other general symptoms documented in this encounter [facility] note* Diagnosis ASTHMA UNSPECIFIED Unspecified asthma Esophageal reflux OSTEOPENIA Disorder of bone and cartilage, unspecified Allergy Allergy, unspecified not elsewhere classified Disorder of iron metabolism Other disorders of iron metabolism Encounter for screening breast examination [facility] Diagnosis ASTHMA UNSPECIFIED Unspecified asthma Esophageal reflux OSTEOPENIA Disorder of bone and cartilage, unspecified Allergy Allergy, unspecified not elsewhere classified Disorder of iron metabolism Other disorders of iron metabolism Hereditary hemochromatosis (HCC)- Primary Hereditary hemochromatosis [facility] Diagnosis ASTHMA UNSPECIFIED Unspecified asthma Esophageal reflux OSTEOPENIA Disorder of bone and cartilage, unspecified Allergy Allergy, unspecified not elsewhere classified 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 documented in this encounter [facility] note* Diagnosis ASTHMA UNSPECIFIED Unspecified asthma Esophageal reflux OSTEOPENIA Disorder of bone and cartilage, unspecified Allergy Allergy, unspecified not elsewhere classified Disorder of iron metabolism Other disorders of iron metabolism Silent cerebral infarction (HCC)- Primary Mild cognitive impairment Mild cognitive impairment, so stated Functional gastrointestinal disorder Unspecified functional disorder of stomach documented in this encounter [facility] note* Diagnosis ASTHMA UNSPECIFIED Unspecified asthma Esophageal reflux OSTEOPENIA Disorder of bone and cartilage, unspecified Allergy Allergy, unspecified not elsewhere classified Disorder of iron metabolism Other disorders of iron metabolism Hereditary hemochromatosis (HCC)- Primary Hereditary hemochromatosis Disorder of iron metabolism Other disorders of iron metabolism documented in this encounter [facility] note* Diagnosis ASTHMA UNSPECIFIED Unspecified asthma Esophageal reflux OSTEOPENIA Disorder of bone and cartilage, unspecified Allergy Allergy, unspecified not elsewhere classified Disorder of iron metabolism Other disorders of iron metabolism Alteration in metabolic function- Primary Brain fog Allergy, initial encounter High vitamin D level Hypervitaminosis D documented in this encounter [facility] note* Diagnosis ASTHMA UNSPECIFIED Unspecified asthma Esophageal [...] choroidal neovascularization (HCC) documented in this encounter [facility] note* Diagnosis ASTHMA UNSPECIFIED Unspecified asthma Esophageal reflux OSTEOPENIA Disorder of bone and cartilage, unspecified Allergy Allergy, unspecified not elsewhere classified 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 documented in this encounter [facility] note* Diagnosis ASTHMA UNSPECIFIED Unspecified asthma Esophageal reflux OSTEOPENIA Disorder of bone and cartilage, unspecified Allergy Allergy, unspecified not elsewhere classified Disorder of iron metabolism Other disorders of iron metabolism Hereditary hemochromatosis- Primary Ductal carcinoma in situ (DCIS) of left breast documented in this encounter [facility] note* Diagnosis ASTHMA UNSPECIFIED Unspecified asthma Esophageal reflux OSTEOPENIA Disorder of bone and cartilage, unspecified Allergy Allergy, unspecified not elsewhere classified 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 [facility] instructions[facility] Instructions Recommend following up with your primary care physician. Over the counter pain medicine as needed for pain such as Tylenol. Return back to the ED if symptoms change or worsen. Recommend allergy medicine for your nasal congestion. Cannot prescribe Flonase as you have steroids listed as an allergy.[facility] Work Phone: Hospital Discharge instructionsAdditional Instructions Follow-up with Dr. Chan. With ophthalmology tomorrow as scheduled. Return with increasing chest pain or continued heart palpitations, new or worsening symptoms.[facility] Work Phone: Reason for referral (narrative)* Diagnostic Procedure Only (Routine) - Authorized Specialty Diagnoses / Procedures Referred By Liz lutz Referred To Contact US IMAGING Diagnoses Hereditary hemochromatosis (HCC) Procedures US ABD RT UPPER QUADRANT US ABDOMINAL REAL TIME W/IMAGE LIMITED Luis Ron DO [address] [place] [address] Us Imaging Referral ID Status Reason Start Date Expiration Date Visits Requested Visits Authorized [id number] Authorized Auto-Generat ed Referral 05/22/2022 06/21/2023 1 1 [facility] for referral (narrative)* Diagnostic Procedure Only (Routine) - Pending Review Specialty Diagnoses / Procedures Referred By Liz lutz Referred To Contact BR IMAGING Diagnoses Screening breast examination Procedures GOOD SCREENING SCREENING MAMMOGRAPHY BI 2-VIEW BREAST INC CAD Mi Douglas MD [address] [place] [address] [facility] Imaging [address] [place] [address] Referral ID Status Reason Start Date Expiration Date Visits Requested Visits Authorized [id number] Pending Review Auto-Generat ed Referral 10/25/2022 11/24/2023 1 1 T [facility] for referral (narrative)* Diagnostic Procedure Only (Routine) - Closed Specialty Diagnoses / Procedures Referred By Liz lutz Referred To Contact BR IMAGING Diagnoses Screening breast examination Procedures GOOD SCREENING SCREENING MAMMOGRAPHY BI 2-VIEW BREAST INC Mi Menard MD [address] [place] [address] [facility] [address] [place] [address] Referral ID Status Reason Start Date Expiration Date V isits Requested Visits Authorized [id number] Closed Auto-Generate d Referral 10/25/2022 11/24/2023 1 1 [facility] for referral (narrative)* Diagnostic Procedure Only (Routine) - Closed Specialty Diagnoses / Procedures Referred By Liz lutz Referred To Contact BR IMAGING Diagnoses Ductal carcinoma in situ (DCIS) of left breast Procedures GOOD SCREENING SCREENING MAMMOGRAPHY BI 2-VIEW BREAST INC Mi Menard MD [address] [place] [address] [facility] [address] [place] [address] Referral ID Status Reason Start Date Expiration Date V isits Requested Visits Authorized [id number] Closed Auto-Generate d Referral 01/03/2022 02/03/2022 1 1 [facility] for referral (narrative)* Diagnostic Procedure Only (Routine) - Closed Specialty Diagnoses / Procedures Referred By Liz lutz Referred To Contact US IMAGING Diagnoses Hereditary hemochromatosis (HCC) Procedures US ABD RT UPPER QUADRANT US ABDOMINAL REAL TIME W/IMAGE LIMITED Luis Ron DO [address] [facility] [place] [address] Us Imaging [facility] Referral ID Status Reason Start Date Expiration Date V isits Requested Visits Authorized [id number] Closed Auto-Generate d Referral 05/22/2022 06/21/2023 1 1 [facility] for referral (narrative)* Diagnostic Procedure Only (Routine) - Authorized Specialty Diagnoses / Procedures Referred By Liz lutz Referred To Contact BR IMAGING Diagnoses Encounter for screening breast examination Procedures GOOD SCREENING W MALOU SCREENING DIGITAL BREAST TOMOSYNTHESIS BI SCREENING MAMMOGRAPHY BI 2-VIEW BREAST INC CAD Luis Ron DO [address] [place] [address] [facility] [address] [place] [address] Referral ID Status Reason Start Date Expiration Date Visits Requested Visits Authorized [id number] Authorized Auto-Generat ed Referral 11/11/2023 12/10/2024 1 1 [facility] for referral (narrative)No [facility] for [facility] Reason for visit Narrative* Diagnostic Procedure Only (Routine) - Closed Specialty Diagnoses / Procedures Referred By Liz t Referred To Contact BR IMAGING Diagnoses Screening breast examination Procedures GOOD SCREENING SCREENING MAMMOGRAPHY BI 2-VIEW BREAST INC CAD Mi Douglas MD [address] [place] [address] [facility] [address] [facility] [place] [address] Referral ID Status Reason Start Date Expiration Date V isits Requested Visits Authorized [id number] Closed Auto-Generate d Referral 10/25/2022 11/24/2023 1 1 [facility] for visit Narrative* Diagnostic Procedure Only (Routine) - Closed Specialty Diagnoses / Procedures Referred By Liz t Referred To Contact BR IMAGING Diagnoses Ductal carcinoma in situ (DCIS) of left breast Procedures GOOD SCREENING SCREENING MAMMOGRAPHY BI 2-VIEW BREAST INC CAD Mi Douglas MD [address] [place] [address] [facility] [address] [place] [address] Referral ID Status Reason Start Date Expiration Date V isits Requested Visits Authorized [id number] Closed Auto-Generate d Referral 01/03/2022 02/03/2022 1 1 [facility] for visit Narrative* Diagnostic Procedure Only (Routine) - Closed Specialty Diagnoses / Procedures Referred By Liz t Referred To Contact BR IMAGING Diagnoses Encounter for screening breast examination Procedures GOOD SCREENING W MALOU SCREENING DIGITAL BREAST TOMOSYNTHESIS BI SCREENING MAMMOGRAPHY BI 2-VIEW BREAST INC CAD Luis Ron, DO [address] [place] [address] [facility] Imaging [address] [place] [address] Referral ID Status Reason Start Date Expiration Date V isits Requested Visits Authorized [id number] Closed Auto-Generate d Referral 11/11/2023 12/10/2024 1 1 [facility] Family History No Family History Records Found [...] Yes October 16, 2018 11:28am Power of Electronic Service Technician Yes October 16 11:28am Documents on File Type Date Recorded 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 Advance Directive(s) 11/12/2016 9:46 AM Advance Directive Response Recorded Date/ Time Name of Medical Power of Electronic Service Technician Randall Restrepo n October 31, 2021 1:00pm Advance Directives Yes February 11:37pm Living Will Yes October 31 1:00pm Power of Electronic Service Technician Yes October 31 022 1:00pm Advance Directive Response Recorded Date/ Time Name of Medical Power of Electronic Service Technician Randall Restrepo n October 31, 2021 12:00pm Advance Directives Yes February 10:37pm Living Will Yes October 31 2 12:00pm Power of Electronic Service Technician Yes October 31 12:00pm Advance Directive Response Recorded Date/ Time Advance Directives Yes January 2:25pm Living Will Yes January 25 022 2:25pm Power of Electronic Service Technician Yes January 25, 2022 2:25pm Advance Directive Response Recorded Date/ Time Advance Directives Yes January 3:25pm Living Will Yes January 25 022 3:25pm Power of Electronic Service Technician Yes January 25, 2022 3:25pm Advance Directive Response Recorded Date/ Time Advance Directives Yes July 20 2:05pm Advance Directive Response Recorded Date/ Time Advance Directives Yes July 20 2:05pm Do you have a Healthcare Power of Electronic Service Technician? Yes September 12, 2024 8:48am Name of Medical Power of Electronic Service Technician Chris Restrepo n September 12, 2024 8:48am Advance Directive Response Recorded Date/ Time Advance Directives Yes September 13 10:03am Do you have a Healthcare Power of Electronic Service Technician? Yes September 12, 2024 8:48am Name of Medical Power of Electronic Service Technician Chris Restrepo n September 12, 2024 8:48am Advance Directive Response Recorded Date/ Time Advance Directives Yes September 13 10:03am Do you have a Healthcare Pow er of Electronic Service Technician? Yes December 01, 2024 4:48pm Do you have a Healthcare Pow er of Electronic Service Technician? Yes September 12, 2024 8:48am Name of Medical Power of Electronic Service Technician Chris Restrepo n September 12, 2024 8:48am Advance Directive Response Recorded Date/ Time Advance Directives Yes September 13 9:03am Do you have a Healthcare Power of Electronic Service Technician? Yes December 01, 2024 3:48pm Do you have a Healthcare Power of Electronic Service Technician? Yes January 13, 2025 7:27pm Chief Complaint and Reason for Visit Chief [...] left leg September 12, 2024 8:33a m [facility] FU September 15, 2024 9:31a m [...] left leg September 12, 2024 8:33a m [facility] FU September 15, 2024 9:31a m CONCERN FOR UTI October 18, 2024 6: 36am Chief Complaint Admit Date CONGESTION, SINUS, THROAT BLOCKAGE September 01, 2024 3:41pm [facility] September 07, 2024 8:57a m left leg September 12, 2024 8:33a m [facility] FU September 15, 2024 9:31a m CONCERN FOR UTI October 18, 2024 6: 36am Palpitations December 01, 2024 2:32pm Reason for Visit Admit Date Left knee pain September 15, 2024 9:31a m Congested nose September 15, 2024 9:31a m Chief Complaint Admit Date [facility] FU September 15, 2024 9:31a m CONCERN FOR UTI October 18, 2024 6: 36am Palpitations December 01, 2024 2:32pm 6 M FU December 27, 2024 2 :15pm CONCERN FOR INFECTION L LEG January 4:58pm LOWER EXT January 13, 2025 7 :07pm Reason for Visit Admit Date Left knee pain September 15, 2024 9:31a m Congested nose September 15, 2024 9:31a m Vitamin D deficiency December 27, 2024 2:15pm Cataract December 27, 2024 2 :15pm Glaucoma December 27, 2024 2 :15pm Hemochromatosis December 27, 2024 2 :15pm Neuropathy December 27, 2024 2 :15pm Summary Purpose Reason for Referral Specialty Diagnoses / Procedures Referred By Contac t Referred To Contact MR IMAGING Diagnoses Impaired memory Forgetfulness Procedures MRI 3D POST PROCESSING 3D RENDERING W/INTERP&POSTPROC DIFF WORK STATION Airam Martinez, EMBOSSING CLERK.BATTERY TESTER [address] [place] [address] [place] [address] Referral ID Status Reason Start Date Expiration Date Visits Requested Visits Authorized [id number] Pending Review Auto-Generat ed Referral 08/15/2023 09/13/2024 1 1 Specialty Diagnoses / Procedures Referred By Contac t Referred To Contact MR IMAGING Diagnoses Impaired memory Forgetfulness Procedures MRI BRAIN WO IVCON MRI BRAIN BRAIN STEM W/O CONTRAST MATERIAL KailaabelardoAiram, EMBOSSING CLERK.BATTERY TESTER [address] [place] [address] [place] [address] Referral ID Status Reason Start Date Expiration Date Visits Requested Visits Authorized [id number] Pending Review Auto-Generat ed Referral 08/15/2023 09/13/2024 1 1 Specialty Diagnoses / Procedures Referred By Contac t Referred To Contact Psychology Diagnoses Anxiety about health Procedures CONSULT TO PSYCHOLOGY OFFICE/OUTPATIENT [facility] 60 MINUTES Oli Avery MD [address] [id number] Referral ID Status Reason Start Date Expiration Date Visits Requested Visits Authorized [id number] Pending Review PCP Requested Referral 09/25/2023 09/24/2024 1 1 Referral ID Status Reason Start Date Expiration Date V isits Requested Visits Authorized [id number] Closed Auto-Generate d Referral 08/15/2023 09/13/2024 1 1 Referral ID Status Reason Start Date Expiration Date V isits Requested Visits Authorized [id number] Closed Auto-Generate d Referral 08/15/2023 09/13/2024 1 [...] or prosecute any alcohol or drug abuse patient.[facility] HospitalIn the event this information is protected by the Federal Confidentiality of Alcohol and Drug Abuse Patient Records regulations: The Federal rules restrict any use of the information to criminally investigate or prosecute any alcohol or drug abuse patient.[facility] HospitalIn the event this information is protected by the Federal Confidentiality of Alcohol and Drug Abuse Patient Records regulations: The Federal rules restrict any use of the information to criminally investigate or prosecute any alcohol or drug abuse patient.[facility] HospitalIn the event this information is protected by the Federal Confidentiality of Alcohol and Drug Abuse Patient Records regulations: The Federal rules restrict any use of the information to criminally investigate or prosecute any alcohol or drug abuse patient.[facility] HospitalIn the event this information is protected by the Federal Confidentiality of Alcohol and Drug Abuse Patient Records regulations: The Federal rules restrict any use of the information to criminally investigate or prosecute any alcohol or drug abuse patient.[facility] HospitalIn the event this information is protected by the Federal Confidentiality of Alcohol and Drug Abuse Patient Records regulations: The Federal rules restrict any use of the information to criminally investigate or prosecute any alcohol or drug abuse patient.[facility] HospitalIn the event this information is protected by the Federal Confidentiality of Alcohol and Drug Abuse Patient Records regulations: The Federal rules restrict any use of the information to criminally investigate or prosecute any alcohol or drug abuse patient.[facility] HospitalIn the event this information is protected by the Federal Confidentiality of Alcohol and Drug Abuse Patient Records regulations: The Federal rules restrict any use of the information to criminally investigate or prosecute any alcohol or drug abuse patient.[facility] HospitalIn the event this information is protected by the Federal Confidentiality of Alcohol and Drug Abuse Patient Records regulations: The Federal rules restrict any use of the information to criminally investigate or prosecute any alcohol or drug abuse patient.[facility] HospitalIn the event this information is protected by the Federal Confidentiality of Alcohol and Drug Abuse Patient Records regulations: The Federal rules restrict any use of the information to criminally investigate or prosecute any alcohol or drug abuse patient.[facility] HospitalIn the event this information is protected by the Federal Confidentiality of Alcohol and Drug Abuse Patient Records regulations: The Federal rules restrict any use of the information to criminally investigate or prosecute any alcohol or drug abuse patient.[facility] HospitalIn the event this information is protected by the Federal Confidentiality of Alcohol and Drug Abuse Patient Records regulations: The Federal rules restrict any use of the information to criminally investigate or prosecute any alcohol or drug abuse patient.[facility] HospitalIn the event this information is protected by the Federal Confidentiality of Alcohol and Drug Abuse Patient Records regulations: The Federal rules restrict any use of the information to criminally investigate or prosecute any alcohol or drug abuse patient.[facility] HospitalIn the event this information is protected by the Federal Confidentiality of Alcohol and Drug Abuse Patient Records regulations: The Federal rules restrict any use of the information to criminally investigate or prosecute any alcohol or drug abuse patient.[facility] HospitalIn the event this information is protected by the Federal Confidentiality of Alcohol and Drug Abuse Patient Records regulations: The Federal rules restrict any use of the information to criminally investigate or prosecute any alcohol or drug abuse patient.[facility] HospitalIn the event this information is protected by the Federal Confidentiality of Alcohol and Drug Abuse Patient Records regulations: The Federal rules restrict any use of the information to criminally investigate or prosecute any alcohol or drug abuse patient.[facility] HospitalIn the event this information is protected by the Federal Confidentiality of Alcohol and Drug Abuse Patient Records regulations: The Federal rules restrict any use of the information to criminally investigate or prosecute any alcohol or drug abuse patient.[facility] HospitalIn the event this information is protected by the Federal Confidentiality of Alcohol and Drug Abuse Patient Records regulations: The Federal rules restrict any use of the information to criminally investigate or prosecute any alcohol or drug abuse patient.[facility] HospitalIn the event this information is protected by the Federal Confidentiality of Alcohol and Drug Abuse Patient Records regulations: The Federal rules restrict any use of the information to criminally investigate or prosecute any alcohol or drug abuse patient.[facility] HospitalIn the event this information is protected by the Federal Confidentiality of Alcohol and Drug Abuse Patient Records regulations: The Federal rules restrict any use of the information to criminally investigate or prosecute any alcohol or drug abuse patient.[facility] HospitalIn the event this information is protected by the Federal Confidentiality of Alcohol and Drug Abuse Patient Records regulations: The Federal rules restrict any use of the information to criminally investigate or prosecute any alcohol or drug abuse patient.[facility] HospitalIn the event this information is protected by the Federal Confidentiality of Alcohol and Drug Abuse Patient Records regulations: The Federal rules restrict any use of the information to criminally investigate or prosecute any alcohol or drug abuse patient.[facility] HospitalIn the event this information is protected by the Federal Confidentiality of Alcohol and Drug Abuse Patient Records regulations: The Federal rules restrict any use of the information to criminally investigate or prosecute any alcohol or drug abuse patient.[facility] HospitalIn the event this information is protected by the Federal Confidentiality of Alcohol and Drug Abuse Patient Records regulations: The Federal rules restrict any use of the information to criminally investigate or prosecute any alcohol or drug abuse patient.[facility] HospitalIn the event this information is protected by the Federal Confidentiality of Alcohol and Drug Abuse Patient Records regulations: The Federal rules restrict any use of the information to criminally investigate or prosecute any alcohol or drug abuse patient.[facility] HospitalIn the event this information is protected by the Federal Confidentiality of Alcohol and Drug Abuse Patient Records regulations: The Federal rules restrict any use of the information to criminally investigate or prosecute any alcohol or drug abuse patient.[facility] HospitalIn the event this information is protected by the Federal Confidentiality of Alcohol and Drug Abuse Patient Records regulations: The Federal rules restrict any use of the information to criminally investigate or prosecute any alcohol or drug abuse patient.[facility] HospitalIn the event this information is protected by the Federal Confidentiality of Alcohol and Drug Abuse Patient Records regulations: The Federal rules restrict any use of the information to criminally investigate or prosecute any alcohol or drug abuse patient.[facility] HospitalIn the event this information is protected by the Federal Confidentiality of Alcohol and Drug Abuse Patient Records regulations: The Federal rules restrict any use of the information to criminally investigate or prosecute any alcohol or drug abuse patient.[facility] HospitalIn the event this information is protected by the Federal Confidentiality of Alcohol and Drug Abuse Patient Records regulations: The Federal rules restrict any use of the information to criminally investigate or prosecute any alcohol or drug abuse patient.[facility] HospitalIn the event this information is protected by the Federal Confidentiality of Alcohol and Drug Abuse Patient Records regulations: The Federal rules restrict any use of the information to criminally investigate or prosecute any alcohol or drug abuse patient.[facility] HospitalIn the event this information is protected by the Federal Confidentiality of Alcohol and Drug Abuse Patient Records regulations: The Federal rules restrict any use of the information to criminally investigate or prosecute any alcohol or drug abuse patient.[facility] HospitalIn the event this information is protected by the Federal Confidentiality of Alcohol and Drug Abuse Patient Records regulations: The Federal rules restrict any use of the information to criminally investigate or prosecute any alcohol or drug abuse patient.[facility] HospitalIn the event this information is protected by the Federal Confidentiality of Alcohol and Drug Abuse Patient Records regulations: The Federal rules restrict any use of the information to criminally investigate or prosecute any alcohol or drug abuse patient.[facility] HospitalIn the event this information is protected by the Federal Confidentiality of Alcohol and Drug Abuse Patient Records regulations: The Federal rules restrict any use of the information to criminally investigate or prosecute any alcohol or drug abuse patient.[facility] HospitalIn the event this information is protected by the Federal Confidentiality of Alcohol and Drug Abuse Patient Records regulations: The Federal rules restrict any use of the information to criminally investigate or prosecute any alcohol or drug abuse patient.[facility] HospitalIn the event this information is protected by the Federal Confidentiality of Alcohol and Drug Abuse Patient Records regulations: The Federal rules restrict any use of the information to criminally investigate or prosecute any alcohol or drug abuse patient.[facility] HospitalIn the event this information is protected by the Federal Confidentiality of Alcohol and Drug Abuse Patient Records regulations: The Federal rules restrict any use of the information to criminally investigate or prosecute any alcohol or drug abuse patient.[facility] HospitalIn the event this information is protected by the Federal Confidentiality of Alcohol and Drug Abuse Patient Records regulations: The Federal rules restrict any use of the information to criminally investigate or prosecute any alcohol or drug abuse patient.[facility] HospitalIn the event this information is protected by the Federal Confidentiality of Alcohol and Drug Abuse Patient Records regulations: The Federal rules restrict any use of the information to criminally investigate or prosecute any alcohol or drug abuse patient.[facility] HospitalIn the event this information is protected by the Federal Confidentiality of Alcohol and Drug Abuse Patient Records regulations: The Federal rules restrict any use of the information to criminally investigate or prosecute any alcohol or drug abuse patient.[facility] HospitalIn the event this information is protected by the Federal Confidentiality of Alcohol and Drug Abuse Patient Records regulations: The Federal rules restrict any use of the information to criminally investigate or prosecute any alcohol or drug abuse patient.[facility] HospitalIn the event this information is protected by the Federal Confidentiality of Alcohol and Drug Abuse Patient Records regulations: The Federal rules restrict any use of the information to criminally investigate or prosecute any alcohol or drug abuse patient.[facility] HospitalIn the event this information is protected by the Federal Confidentiality of Alcohol and Drug Abuse Patient Records regulations: The Federal rules restrict any use of the information to criminally investigate or prosecute any alcohol or drug abuse patient.[facility] HospitalIn the event this information is protected by the Federal Confidentiality of Alcohol and Drug Abuse Patient Records regulations: The Federal rules restrict any use of the information to criminally investigate or prosecute any alcohol or drug abuse patient.[facility] HospitalIn the event this information is protected by the Federal Confidentiality of Alcohol and Drug Abuse Patient Records regulations: The Federal rules restrict any use of the information to criminally investigate or prosecute any alcohol or drug abuse patient.[facility] HospitalIn the event this information is protected by the Federal Confidentiality of Alcohol and Drug Abuse Patient Records regulations: The Federal rules restrict any use of the information to criminally investigate or prosecute any alcohol or drug abuse patient.[facility] HospitalIn the event this information is protected by the Federal Confidentiality of Alcohol and Drug Abuse Patient Records regulations: The Federal rules restrict any use of the information to criminally investigate or prosecute any alcohol or drug abuse patient.[facility] HospitalIn the event this information is protected by the Federal Confidentiality of Alcohol and Drug Abuse Patient Records regulations: The Federal rules restrict any use of the information to criminally investigate or prosecute any alcohol or drug abuse patient.[facility] HospitalIn the event this information is protected by the Federal Confidentiality of Alcohol and Drug Abuse Patient Records regulations: The Federal rules restrict any use of the information to criminally investigate or prosecute any alcohol or drug abuse patient.[facility] HospitalIn the event this information is protected by the Federal Confidentiality of Alcohol and Drug Abuse Patient Records regulations: The Federal rules restrict any use of the information to criminally investigate or prosecute any alcohol or drug abuse patient.[facility] HospitalIn the event this information is protected by the Federal Confidentiality of Alcohol and Drug Abuse Patient Records regulations: The Federal rules restrict any use of the information to criminally investigate or prosecute any alcohol or drug abuse patient.[facility] HospitalIn the event this information is protected by the Federal Confidentiality of Alcohol and Drug Abuse Patient Records regulations: The Federal rules restrict any use of the information to criminally investigate or prosecute any alcohol or drug abuse patient.[facility] HospitalIn the event this information is protected by the Federal Confidentiality of Alcohol and Drug Abuse Patient Records regulations: The Federal rules restrict any use of the information to criminally investigate or prosecute any alcohol or drug abuse patient.[facility] Reason for Visit (unrecogniz ed section and content) Reason Comments Phlebotomy Specialty Diagnoses / Procedures Referred By Liz lutz Referred To Contact Hematology / HEMATOLOGY/ONCOLOGY Diagnoses ([id number] ?PHLEBO/LABS 08/14* CBC/CMP/IRON STUDIES/AFP/1YR OV(MASCI) DUE 05/30 Procedures 1 HR TX Luis Ron DO [address] [place] [address] [facility] [address] [place] [address] Referral ID Status Reason Start Date Expiration Date V isits Requested Visits Authorized [id number] Pending Review 11/21/2021 02/19/2022 1 1 Reason [...] ABDOMINAL REAL TIME W/IMAGE LIMITED Luis Ron, [address] [place] [address] [facility] [address] [address] Referral ID Status Reason Start Date Expiration Date V isits Requested Visits Authorized [id number] Closed Auto-Generate d Referral 05/22/2022 06/21/2023 1 [...] NEW HIGH MDM 60 MINUTES Airam Martinez APRN.BATTERY TESTER [address] [phone] Referral ID Status Reason Start Date Expiration Date V isits Requested Visits Authorized [id number] Closed PCP Requested Referral 09/03/2023 09/02/2024 1 1 Reason Comments 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 Records request Reason Comments Radiology MRI Specialty Diagnoses / Procedures Referred By Contac t Referred To Contact MR IMAGING Diagnoses Impaired memory Forgetfulness Procedures MRI BRAIN WO IVCON MRI BRAIN BRAIN STEM W/O CONTRAST MATERIAL Airam Martinez APRN.BATTERY TESTER [address] [phone] [facility] [place] [address] Referral ID Status Reason Start Date Expiration Date V isits Requested Visits Authorized [id number] Closed Auto-Generate d Referral 08/15/2023 09/13/2024 1 1 Reason Comments Established Patient Follow-Up Reason Comments New Patient Brain fog Specialty Diagnoses / Procedures Referred By Contac t Referred To Contact Diagnoses Functional gastrointestinal disorder Procedures CONSULT TO FUNCTIONAL MEDICINE OFFICE/OUTPATIENT NEW HIGH MDM 60 MINUTES Oli Avery MD [address] [place] [address] Phone: tel: fax: Referral ID Status Reason Start Date Expiration Date V isits Requested Visits Authorized [id number] Closed PCP Requested Referral 04/19/2024 04/19/2025 1 1 Reason Comments 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 Reason Comments Established Patient Care Teams (unrecognized sec tion and content) Metallurgy Teacher Relationship Specialty Start Date End Date Katarina Medina MD PCP - General Internal Medicine 11/17/19 Meryl Jansen MD, [address] [address] Physician Radiation Oncology 04/13/18 Mandi Momin RN Specialty Institute Scientist Oncology 08/19/19 Metallurgy Teacher Relationship Specialty Start Date End Date Katarina Medina MD PCP - General Internal Medicine 11/17/19 Meryl Jansen MD, [address] [address] Physician Radiation Oncology 04/13/18 Mandi Momin RN Specialty Institute Scientist Oncology 08/19/19 Metallurgy Teacher Relationship Specialty Start Date End Date Katarina Medina MD PCP - General Internal Medicine 11/17/19 Meryl Jansen MD, [address] [place] [address] Physician Radiation Oncology 04/13/18 Mandi Momin RN Specialty Institute Scientist Oncology 08/19/19 Metallurgy Teacher Relationship Specialty Start Date End Date Katarina Medina MD PCP - General Internal Medicine 11/17/19 Meryl Jansen MD, [address] [address] Physician Radiation Oncology 04/13/18 Mandi Momin RN Specialty Institute Scientist Oncology 08/19/19 Metallurgy Teacher Relationship Specialty Start Date End Date Katarina Medina MD PCP - General Internal Medicine 11/17/19 Meryl Jansen MD, [address] [facility] [place] [address] Physician Radiation Oncology 04/13/18 Mandi Momin RN Specialty Institute Scientist Oncology 08/19/19 Metallurgy Teacher Relationship Specialty Start Date End Date Katarina Medina MD PCP - General Internal Medicine 11/17/19 Meryl Jansen MD, [address] [facility] [address] Physician Radiation Oncology 04/13/18 Mandi Momin RN Specialty Institute Scientist Oncology 08/19/19 Metallurgy Teacher Relationship Specialty Start Date End Date Katarina Medina MD PCP - General Internal Medicine 11/17/19 Meryl Jansen MD, [address] [facility] [place] [address] Physician Radiation Oncology 04/13/18 Mandi Momin RN Specialty Institute Scientist Oncology 08/19/19 Metallurgy Teacher Relationship Specialty Start Date End Date Katarina Medina MD PCP - General Internal Medicine 11/17/19 Meryl Jansen MD, [address] [facility] [place] [address] Physician Radiation Oncology 04/13/18 Mandi Momin RN Specialty Institute Scientist Oncology 08/19/19 Metallurgy Teacher Relationship Specialty Start Date End Date Katarina Medina MD PCP - General Internal Medicine 11/17/19 Meryl Jansen MD, [address] [place] [address] Physician Radiation Oncology 04/13/18 Mandi Momin RN Specialty Institute Scientist Oncology 08/19/19 Metallurgy Teacher Relationship Specialty Start Date End Date Katarina Medina MD PCP - General Internal Medicine 11/17/19 Meryl Jansen MD, [address] [place] [address] Physician Radiation Oncology 04/13/18 Mandi Momin RN Specialty Institute Scientist Oncology 08/19/19 Metallurgy Teacher Relationship Specialty Start Date End Date Katarina Medina MD PCP - General Internal Medicine 11/17/19 Meryl Jansen MD, [address] [place] [address] Physician Radiation Oncology 04/13/18 Mandi Momin RN Specialty Institute Scientist Oncology 08/19/19 Metallurgy Teacher Relationship Specialty Start Date End Date Katarina Medina MD PCP - General Internal Medicine 11/17/19 Meryl Jansen MD, [address] [facility] [place] [address] Physician Radiation Oncology 04/13/18 Mandi Momin RN Specialty Institute Scientist Oncology 08/19/19 Metallurgy Teacher Relationship Specialty Start Date End Date Katarina Medina MD PCP - General Internal Medicine 11/17/19 Meryl Jansen MD, [address] [facility] [place] [address] Physician Radiation Oncology 04/13/18 Mandi Momin RN Specialty Institute Scientist Oncology 08/19/19 Metallurgy Teacher Relationship Specialty Start Date End Date Katarina Medina MD PCP - General Internal Medicine 11/17/19 Meryl Jansen MD, [address] [facility] [place] [address] Physician Radiation Oncology 04/13/18 Mandi Momin RN Specialty Institute Scientist Oncology 08/19/19 Metallurgy Teacher Relationship Specialty Start Date End Date Katarina Medina MD PCP - General Internal Medicine 11/17/19 Meryl Janesn MD, [address] [facility] [place] [address] Physician Radiation Oncology 04/13/18 Mandi Momin RN Specialty Institute Scientist Oncology 08/19/19 Metallurgy Teacher Relationship Specialty Start Date End Date Katarina Medina MD PCP - General Internal Medicine 11/17/19 Meryl Jansen MD, [address] [facility] [place] [address] Physician Radiation Oncology 04/13/18 Mandi Momin RN Specialty Institute Scientist Oncology 08/19/19 Team Status: Active Member Role [...] Care Provider, Referri ng Provider Active Moose REED, PA Attending Provider Active Team Status: Inactive Member Role Status Dates Dr. Katarina Medina MD Primary Care Provider Active Moose REED, [place] Attending Provider, Referring Pr ovider Active Metallurgy Teacher Relationship Specialty Start Date End Date Katarina Medina MD PCP - General Internal Medicine 11/17/19 Meryl Jansen MD, MD [address] [place] [address] Physician Radiation Oncology 04/13/18 Mandi Momin RN Specialty Institute Scientist Oncology 08/19/19 Metallurgy Teacher Relationship Specialty Start Date End Date Katarina Medina MD PCP - General Internal Medicine 11/17/19 Meryl Jansen MD [address] [place] [address] Physician Radiation Oncology 04/13/18 Mandi Momin RN Specialty Institute Scientist Oncology 08/19/19 Metallurgy Teacher Relationship Specialty Start Date End Date Katarina Medina MD PCP - General Internal Medicine 11/17/19 Meryl Jansen MD [address] [place] [address] Physician Radiation Oncology 04/13/18 Mandi Momin RN Specialty Institute Scientist Oncology 08/19/19 Team Status: Active Member Role Status Dates Dr. Katarina Medina MD Primary Care Provider, Referri Provider Active Dr. Seamus Turk MD Attending Provider Active Team Status: Active Member Role Status Dates Dr. Katarina Medina MD Primary Care Provider Active Dr. Laurence Billingsley MD Attending Provider Activ e Metallurgy Teacher Relationship Specialty Start Date End Date Katarina Medina MD PCP - General Internal Medicine 11/17/19 Meryl Jansen MD [address] [facility] [place] [address] Physician Radiation Oncology 04/13/18 Mandi Momin RN Specialty Institute Scientist Oncology 08/19/19 Metallurgy Teacher Relationship Specialty Start Date End Date Katarina Medina MD PCP - General Internal Medicine 11/17/19 Meryl Jansen MD [address] [facility] [place] [address] Physician Radiation Oncology 04/13/18 Mandi Momin RN [facility] Scientist Oncology 08/19/19 Metallurgy Teacher Relationship Specialty Start Date End Date Katarina Medina MD PCP - General Internal Medicine 11/17/19 Meryl Jansen MD [address] [place] [address] Physician Radiation Oncology 04/13/18 Mandi Momin RN [facility] Scientist Oncology 08/19/19 Metallurgy Teacher Relationship Specialty Start Date End Date Katarina Medina MD PCP - General Internal Medicine 11/17/19 Meryl Jansen MD [address] [facility] [place] [address] Physician Radiation Oncology 04/13/18 Mandi Momin RN [facility] Scientist Oncology 08/19/19 Metallurgy Teacher Relationship Specialty Start Date End Date Katarina Medina MD PCP - General Internal Medicine 11/17/19 Meryl Jansen MD [address] [facility] [place] [address] Physician Radiation Oncology 04/13/18 Mandi Momin RN [facility] Scientist Oncology 08/19/19 Metallurgy Teacher Relationship Specialty Start Date End Date Katarina Medina MD PCP - General Internal Medicine 11/17/19 Meryl Jansen MD [address] [facility] [place] [address] Physician Radiation Oncology 04/13/18 Mandi Momin RN [facility] Scientist Oncology 08/19/19 Metallurgy Teacher Relationship Specialty Start Date End Date Katarina Medina MD PCP - General Internal Medicine 11/17/19 Meryl Jansen MD [address] [facility] [place] [address] Physician Radiation Oncology 04/13/18 Mandi Momin RN [facility] Scientist Oncology 08/19/19 Doc Gold MD [address] [place] [address] Ophthalmology 11/11/23 Aditya Chan [address] [place] [address] Ophthalmology 11/11/23 Rhonda Wasserman [address] [place] [address] Internal Medicine 11/11/23 Олег Kennedy MD [address] [facility] [address] [place] [address] Allergy 11/11/23 Metallurgy Teacher Relationship Specialty Start Date End Date Ktaarina Medina MD PCP - General Internal Medicine 11/17/19 Meryl Jansen MD [address] [place] [address] Physician Radiation Oncology 04/13/18 Mandi Momin RN [facility] Scientist Oncology 08/19/19 Doc Gold MD [address] [place] [address] Ophthalmology 11/11/23 Aditya Chan [address] [place] [address] Ophthalmology 11/11/23 Rhonda Wasserman [address] [facility] [address] [place] [address] Internal Medicine 11/11/23 Олег Kennedy MD [address] [place], [place] [id number] Allergy 11/11/23 Metallurgy Teacher Relationship Specialty Start Date End Date Katarina Medina MD PCP - General Internal Medicine 11/17/19 Meryl Jansen MD [address] [place] [address] Physician Radiation Oncology 04/13/18 Mandi Momin RN [facility] Scientist Oncology 08/19/19 Metallurgy Teacher Relationship Specialty Start Date End Date Katarina Medina MD PCP - General Internal Medicine 11/17/19 Meryl Jansen MD [address] [place], [place] [address] Physician Radiation Oncology 04/13/18 Mandi Momin RN [facility] Scientist Oncology 08/19/19 Doc Gold MD [address] [place] [address] Ophthalmology 11/11/23 Aditya Chan [address] [place] [address] Ophthalmology 11/11/23 Rhonda Wasserman [address] [facility] [address]T [address] [facility] [address] [place] [address] Internal Medicine 11/11/23 Олег Kennedy MD [address] [facility] [address] [place] [address] Allergy 11/11/23 Metallurgy Teacher Relationship Specialty Start Date End Date Katarina Medina MD PCP - General Internal Medicine 11/17/19 Meryl Jansen MD [address] [facility] [place] [address] Physician Radiation Oncology 04/13/18 Mandi Momin, MARISELA [facility] Scientist Oncology 08/19/19 Doc Gold MD [address] [place] [address] Ophthalmology 11/11/23 Aditya Chan [address] [place] [address] Ophthalmology 11/11/23 Rhonda Wasserman [address] [facility] [address] [place] [phone] Internal Medicine 11/11/23 Олег Kennedy MD [address] [facility] [address] [place] [address] Allergy 11/11/23 Metallurgy Teacher Relationship Specialty Start Date End Date Katarina Medina MD PCP - General Internal Medicine 11/17/19 Meryl Jansen MD [address] [place] [address] Physician Radiation Oncology 04/13/18 Mandi Momin RN [facility] Scientist Oncology 08/19/19 Doc Gold MD [address] [place] [address] Ophthalmology 11/11/23 Aditya Chan [address] [place] [address] Ophthalmology 11/11/23 Rhonda Wasserman [address] [place] [phone] Internal Medicine 11/11/23 Олег Kennedy MD [address] [place] [address] Allergy 11/11/23 Metallurgy Teacher Relationship Specialty Start Date End Date Katarina Medina MD PCP - General Internal Medicine 11/17/19 Meryl Jansen MD [address] [place] [address] Physician Radiation Oncology 04/13/18 Mandi Momin RN [facility] Scientist Oncology 08/19/19 Doc Gold MD [address] [place] [address] Ophthalmology 11/11/23 Aditya Chan [address] [place] [address] Ophthalmology 11/11/23 Rhonda Wasserman [address] [facility] [address] [place] [phone] Internal Medicine 11/11/23 Олег Kennedy MD [address] [address] Allergy 11/11/23 Metallurgy Teacher Relationship Specialty Start Date End Date Katarina Medina MD PCP - General Internal Medicine 11/17/19 Meryl Jansen MD [address] [place] [address] Physician Radiation Oncology 04/13/18 Mandi Momin RN [facility] Scientist Oncology 08/19/19 Doc Gold MD [address] [place] [address] Ophthalmology 11/11/23 Aditya Chan [address] [place] [address] Ophthalmology 11/11/23 Rhonda Wasserman [address] [phone] Internal Medicine 11/11/23 Олег Kennedy MD [address] [address] Allergy 11/11/23 Metallurgy Teacher Relationship Specialty Start Date End Date Katarina Medina MD PCP - General Internal Medicine 11/17/19 Meryl Jansen MD [address] [facility] [place] [address] Physician Radiation Oncology 04/13/18 Mandi Momin RN [facility] Scientist Oncology 08/19/19 Doc Gold MD [address] [place] [address] Ophthalmology 11/11/23 Aditya Chan [address] [place] [address] Ophthalmology 11/11/23 Rhonda Wasserman [address] [place] [phone] Internal Medicine 11/11/23 Олег Kennedy MD [address] [place] [address] Allergy 11/11/23 Metallurgy Teacher Relationship Specialty Start Date End Date Katarina Medina MD PCP - General Internal Medicine 11/17/19 Meryl Jansen MD [address] [place] [address] Physician Radiation Oncology 04/13/18 Mandi Momin, RN [facility] Scientist Oncology 08/19/19 Doc Gold MD [address] [place] [address] Ophthalmology 11/11/23 Aditya Chan [address] [place] [address] Ophthalmology 11/11/23 Rhonda Wasserman [address] [place] [address] Internal Medicine 11/11/23 Олег Kennedy MD [address] [place] [address] Allergy 11/11/23 Team Status: Inactive Member Role [...] Status: Inactive Member Role/Relationship Status Dates Dr. Katraina Medina MD Primary Care Provider Active Start: [...] September 12, 2024 End: September 12, 2024 Metallurgy Teacher Relationship Specialty Start Date End Date Katarina Medina MD PCP - General Internal Medicine 11/17/19 Meryl Jansen MD [address] [facility] [place] [address] Physician Radiation Oncology 04/13/18 Mandi Momin, RN [facility] Scientist Oncology 08/19/19 Doc Gold MD [address] [place] [address] Ophthalmology 11/11/23 Aditya Chan [address] [place] [address] Ophthalmology 11/11/23 Rhonda Wasserman [address] [facility] [address] [place] [phone] Internal Medicine 11/11/23 Олег Kennedy MD [address] [facility] [address] [place] [address] Allergy 11/11/23 Metallurgy Teacher Relationship Specialty Start Date End Date Katarina Medina MD PCP - General Internal Medicine 11/17/19 Meryl Jansen MD [address] [facility] [place] [place] [address] Physician Radiation Oncology 04/13/18 Mandi Momin RN [facility] Scientist Oncology 08/19/19 Doc Gold MD [address] [place] [address] Ophthalmology 11/11/23 Aditya Chan [address] [place] [address] Ophthalmology 11/11/23 Rhonda Wasserman [address] [place] [address] Internal Medicine 11/11/23 Олег Kennedy MD [address] [place], [place] [phone] Allergy 11/11/23 Team Status: Inactive Member Role/Relationship [...] October 18, 2024 End: October 18, 2024 DREEK Veras Attending physician Active Start: October 18, [...] December 01, 2024 End: December 01, 2024 Team Status: Inactive Member Role/Relationship [...] October 18, 2024 End: October 18, 2024 DREEK Veras Attending physician Active Start: October 18, [...] December 01, 2024 End: December 01, 2024 Team Status: Inactive Member Role/Relationship Status Dates Dr. Katarina Medina MD Primary care physician Active Start: December 27, 2024 End: December 27, 2024 Dr. Katarina Medina MD Attending physician Active Start: December 27, 2024 End: December 27, 2024 Team Status: Inactive Member Role/Relationship Status Dates Dr. Katarina Medina MD Primary care physician Active Start: January 13, 2025 End: January 13, 2025 Dr. Katarina Medina MD Referring Provider Active Start: January 13, 2025 End: January 13, 2025 DEREK Colindres Attending physician Active St art: January 13, 2025 End: January 13, 2025 Team Status: Active Member Role/Relationship Status Dates Dr. Katarina Medina MD Primary care physician Active Start: January 13, 2025 Chico Enriquez MD Emergency Department Physician Active Start: January 13, 2025 INFORMATION SOURCE (unrecogn ized section and content) DATE CREATED AUTHOR 10/30/2022 [facility] DATE CREATED AUTHOR AUTHOR'S ORGANIZ ATION 03/29/2024 [facility] DATE CREATED AUTHOR AUTHOR'S ORGANIZ ATION 01/05/2025 [facility] DATE CREATED AUTHOR AUTHOR'S ORGANIZ ATION 01/15/2025 [facility] FOR RECORDS PERTAINING TO PATIENTS WHO [...] BE BASED ON THE PRIMARY CLINICAL RECORDS. [employer] provides no warranty or guarantee of the accuracy or completeness of information in this document.
[2025-01-16 20:33] LABS: Anion Gap 10 (5-15); BUN 13 mg/dL (4-19); BUN/Creat Ratio 17.1 RATIO (10-20); Calcium,Total 10.1 mg/dL (7.6-11.0); Carbon Dioxide 25.4 mmol/L (21.0-32.0); Chloride 103 mmol/L (98-108); Estimated Creatinine Clearance 55.11 ml/min (50-250); Glucose 97 mg/dL (70-99); Potassium 3.8 mmol/L (3.3-5.1); Troponin T High Sensitivity 11 ng/L (<=14)
[2025-01-16 21:13] VITALS: BP 156/49; PULSE 53; RESP 14; O2SAT 100
[2025-01-16 21:43] LABS: Troponin T High Sens 2 HR 11 ng/L (<=14)
[2025-01-16 22:23] VITALS: PULSE 81; RESP 16; O2SAT 99
[2025-01-16 22:48] VITALS: BP 172/59; PULSE 60; RESP 18; TEMP 36.7; O2SAT 98
== END 2025-01-16 22:53 | disposition home or self-care (01) ==
PROVIDERS: Emergency Provider Emergency Medicine; PCP Internal Medicine; Visit Provider Emergency Medicine
DX: R07.9 Chest pain, unspecified (principal); M35.3 Polymyalgia rheumatica
CPT/HCPCS: 71045; 80048; 84484; 85025; 93005; 99284; A4216

== ENCOUNTER → 2025-01-28 | Outpatient (CLI) | payer MEDICARE, SELFPAY ==
--- NOTE | 2025-01-28 10:15 | BI_ITS ---
EXAM: SCRN MAMM (CAD)W/MALOU BILAT DATE: 01/28/2025 CLINICAL HISTORY: F, Age 79 y/o , BREAST CANCER SCREENING Personal history of breast cancer. Prior left lumpectomy and radiation and stereotactic breast biopsy. Sister with breast cancer. TECHNIQUE: Procedure Code: [id number] Modality: MG Procedure: SCRN MAMM (CAD)W/MALOU BILAT COMPARISON: Prior exam(s) dated outside examination dated January 16, 2024.. FINDINGS: TISSUE DENSITY: There are scattered areas of fibroglandular density. Bilateral Breast Mammographic Findings: No significant masses, calcifications or other abnormalities are identified. Once again, postsurgical changes are seen at the excisional breast biopsy site in the deep upper lateral aspect of the left breast. Postoperative scarring and breast deformity. No suspicious masses, areas of developing architectural distortion, or suspicious calcifications. There has been no significant interval change. BI/SCRN MAMM (CAD)W/MALOU BILAT IMPRESSION: Stable bilateral screening mammogram. OVERALL FINAL ASSESSMENT BI-RADS 2: BENIGN RECOMMENDATION: Routine annual follow-up in 1 Year Additional Recommendation none A letter with findings and recommendations will be mailed to the patient. Reading Location: [place] [address]
== END | disposition home or self-care (01) ==
LOC: OPBI 09:56
PROVIDERS: PCP Internal Medicine; Referring Provider Internal Medicine; Visit Provider Internal Medicine
DX: Z12.31 Encounter for screening mammogram for malignant neoplasm of breast (principal)
CPT/HCPCS: 77063; 77067